=== PATIENT | female | born 1970 | race Caucasian/White ===

== ENCOUNTER 2017-10-21 18:30 | Emergency (ER) | payer MEDICAID, SELFPAY ==
[2017-10-21 18:33] VITALS: BP 129/87; PULSE 84; RESP 20; TEMP 36.9; O2SAT 96; BMI 37.1
--- NOTE | 2017-10-21 18:43 | PC.NURSE ---
PT NOW SAYS [PAIN IS IN HER R KNEE SORE UPON PALPATION . NO REDNESS NO SWELLING
--- NOTE | 2017-10-21 18:45 | XR_ITS ---
XR knee RT 3V HISTORY: Right knee pain ITS.REASON: PAIN R KNEE ORDERING PHYSICIAN: Rafael Winchester MD PATIENT AGE: 47 years COMPARISON: None FINDINGS: No fracture or dislocation. No lytic or blastic change. Normal mineralization. There are mild osteoarthritic changes of the medial compartment and patellofemoral joint No other significant findings IMPRESSION: Mild osteoarthritis otherwise negative
--- NOTE | 2017-10-21 21:03 | HMH.EDLOEX ---
ED Disposition Clinical Impression: Right knee sprain Qualifiers: Encounter type: initial encounter Involved ligament of knee: unspecified ligament Qualified Code(s): S83.91XA - Sprain of unspecified site of right knee, initial encounter Osteoarthritis Qualifiers: Osteoarthritis location: knee Osteoarthritis type: unspecified Laterality: right Qualified Code(s): M17.11 - Unilateral primary osteoarthritis, right knee Disposition: Home, Self-Care Condition on Discharge: Good Additional Instructions: resume prev meds - Critical Care Critical Care Time: No Attestation: On 10/21/17, the high probability of a clinically significant, sudden or life threatening deterioration of the following system(s) required my full and direct attention, intervention and personal management. The time I documented below is in addition to time spent performing reported procedures but includes the following listed in this critical care notation. Medical Decision Making - Medical Records Medical records reviewed: Yes: I reviewed the patient's medical records. - Vlad Inquiry Pt receiving controlled substance: No Vital Signs: 10/21/17 18:33 Temperature 98.5 F Temperature Source Oral Pulse Rate [Right Radial] 84 Respiratory Rate 20 Blood Pressure [Right Arm] 129/87 Blood Pressure Mean [Right Arm] 101 Blood Pressure Source [Right Arm] Automatic Cuff Blood Pressure Position [Right Arm] Supine 02 Sat by Pulse Oximetry 96 Oxygen Delivery Method Room Air - Lab Data Lab results reviewed: Yes: I reviewed the patient's lab results. - Radiology Data #1 Image(s): Knee Image Reviewed: Yes I reviewed the patient's radiology image Preliminary Findings: No Fracture Seen Lower Extremity Injury HPI - General Chief Complaint: Fall Stated Complaint: R LEG WEAKNESS Time Seen by Provider: 10/21/17 21:03 Mode of Arrival: EMS Source of Information: Patient, EMS, Medical Record Limitations: No Limitations Description of Symptoms (Recalled from ER Triage Doc. by RN): STAFF AT [facility] SAID SHE FELL EARLIER WITH NO COMPLAINTS NO INJURY , PT STATES HER R LEG IS WEAK ALL THE TIME AND IT JUST LOCKS UP , THATS WHAT MADE HER FALL , PT HAS NO OBVIOUS TRAUMA - History of Present Illness HPI Narrative: reported fall 3 days ago with rt knee pain with no hip pain or other c/o MD complaint: knee injury Onset (ago): day(s) Injury: Right: knee Type of Injury: unknown Place: home Severity: moderate Relieving factors: NSAID Exacerbating factors: nothing Context: fall Associated symptoms: able to partially bear weight Other symptoms: none - Related Data Allergies Allergy/AdvReac Type Severity Reaction Status Date / Time banana Allergy Mild Unverified 07/19/17 15:04 [From BANANAS (FOOD/DRUG)] chocolate flavor Allergy Mild UNKNOWN Unverified 07/19/17 15:04 [From CHOCOLATE (FOOD/DRUG)] From BANANAS (FOOD/DRUG) Allergy Mild Uncoded 07/19/17 15:04 From CHOCOLATE (FOOD/DRUG) Allergy Mild UNKNOWN Uncoded 07/19/17 15:[address] [facility] History I have reviewed the patient's past medical history: Yes ROS Obtained: Yes All systems reviewed & no additional complaints - Constitutional Constitutional: Denies fever(s) - Eyes Eyes: Denies change in vision - ENT Ears, Nose, Mouth, and Throat: Denies sore throat - Cardiovascular Cardiovascular: Denies chest pain at rest - Respiratory Respiratory: No cough - Gastrointestinal Gastrointestingal: Denies: abdominal pain - Genitourinary Female Genitourinary: Denies hematuria - Musculoskeletal Musculoskeletal: Reports as per HPI, Reports joint pain, Denies back pain, Denies joint swelling, Reports limited range of motion - Integumentary/Breasts Skin/Breast: Denies rash - Neurologic Neurologic: Denies seizure-like activity Physical Exam - General General appearance: alert - Head Head exam: normocephalic - Eye Eye exam: Present: PERRL, EOMI - ENT ENT exam: Present:
--- NOTE | 2017-10-21 21:06 | ED_ITS ---
ED Disposition Clinical Impression: Right knee sprain Qualifiers: Encounter type: initial encounter Involved ligament of knee: unspecified ligament Qualified Code(s): S83.91XA - Sprain of unspecified site of right knee , initial encounter Osteoarthritis Qualifiers: Osteoarthritis location: knee Osteoarthritis type: unspecified Laterality: right Qualified Code(s): M17.11 - Unilateral primary osteoarthritis, right knee Disposition: Home, Self-Care Condition on Discharge: Good Additional Instructions: resume prev meds - Critical Care Critical Care Time: No Attestation: On 10/21/17, the high probability of a clinically significant, sudden or life threatening deterioration of the following system(s) required my full and direct attention, intervention and personal management. The time I documented below is in addition to time spent performing reported procedures but includes the following listed in this critical care notation. Medical Decision Making - Medical Records Medical records reviewed: Yes: I reviewed the patient's medical records. - Vlad Inquiry Pt receiving controlled substance: No Vital Signs: 10/21/17 18:33 Temperature 98.5 F Temperature Source Oral Pulse Rate [Right Radial] 84 Respiratory Rate 20 Blood Pressure [Right Arm] 129/87 Blood Pressure Mean [Right Arm] 101 Blood Pressure Source [Right Arm] Automatic Cuff Blood Pressure Position [Right Arm] Supine 02 Sat by Pulse Oximetry 96 Oxygen Delivery Method Room Air - Lab Data Lab results reviewed: Yes: I reviewed the patient's lab results. - Radiology Data #1 Image(s): Knee Image Reviewed: Yes I reviewed the patient's radiology image Preliminary Findings: No Fracture Seen Lower Extremity Injury HPI - General Chief Complaint: Fall Stated Complaint: R LEG WEAKNESS Time Seen by Provider: 10/21/17 21:03 Mode of Arrival: EMS Source of Information: Patient, EMS, Medical Record Limitations: No Limitations Description of Symptoms (Recalled from ER Triage Doc. by RN): STAFF AT [facility] SAID SHE FELL EARLIER WITH NO COMPLAINTS NO INJURY , PT STATES HER R LEG IS WEAK ALL THE TIME AND IT JUST LOCKS UP , THATS WHAT MADE HER FALL , PT HAS NO OBVIOUS TRAUMA - History of Present Illness HPI Narrative: reported fall 3 days ago with rt knee pain with no hip pain or other c/o MD complaint: knee injury Onset (ago): day(s) Injury: Right: knee Type of Injury: unknown Place: home Severity: moderate Relieving factors: NSAID Exacerbating factors: nothing Context: fall Associated symptoms: able to partially bear weight Other symptoms: none - Related Data Allergies Allergy/AdvReac Type Severity Reaction Status Date / Time banana Allergy Mild Unverified 07/19/17 15:04 [From BANANAS (FOOD/DRUG)] chocolate flavor Allergy Mild UNKNOWN Unverified 07/19/17 15:04 [From CHOCOLATE (FOOD/DRUG)] From BANANAS (FOOD/DRUG) Allergy Mild Uncoded 07/19/17 15:04 From CHOCOLATE (FOOD/DRUG) Allergy Mild UNKNOWN Uncoded 07/19/17 15:04 [facility] History I have reviewed the patient's past medical history: Yes ROS Obtained: Yes All systems reviewed & no additional complaints - Constitutional Constitutional: Denies fever(s) - Eyes Eyes: Denies change in vision - ENT Ears, Nose, Mouth, and Throat: Denies sore throat - Cardiovascul
[2017-10-21 21:47] VITALS: BP 145/75; PULSE 88; RESP 18; TEMP 36.6
== END 2017-10-21 21:46 | disposition home or self-care (01) ==
PROVIDERS: Emergency Provider Emergency Medicine; Family Provider Emergency Medicine
DX: S83.91XA Sprain of unspecified site of right knee, initial encounter (principal); M17.11 Unilateral primary osteoarthritis, right knee
CPT/HCPCS: 73562; 99282

== ENCOUNTER → 2018-01-16 10:47 | Outpatient (CLI) | payer MEDICAID, SELFPAY ==
--- NOTE | 2018-01-16 11:02 | XR_ITS ---
EXAM: XR lumbar spine 2-3V HISTORY: Posttraumatic pain ITS.REASON: Fall, tremor, pain ORDERING PHYSICIAN: Hoda Iglesias PATIENT AGE: 47 years COMPARISON: None FINDINGS: There is degenerative disc disease in the lower thoracic spine and T12-L1. No acute fracture or dislocation is evident. Degenerative disc disease also present at L5-S1 with facet arthritic changes at L4-L5 and L5-S1. No lytic or blastic change. Abdominal wall tacks are present over the lower abdomen. IMPRESSION: Degenerative disc disease and facet arthritic change as described above. No acute fracture
[2018-01-16 11:31] LABS: Basophils % 0.5 % (0.1-2.0); Eosinophils # 0.2 K/mm3 (0.0-0.4); Eosinophils % 2.1 % (0.1-12.0); Hemoglobin 14.2 g/dL (12.2-16.2); Lymphocytes # 2.8 K/mm3 (0.7-4.5); Lymphocytes % 35.4 K/mm3 (10-50); Mean Corpuscular HGB Conc 32.2 g/dL (31.8-35.4); Mean Corpuscular Hemoglobin 29.1 pg (27.0-31.2); Mean Corpuscular Volume 90.3 fl (81-99); Mean Platelet Volume 8.2 fl (7.4-10.4); Monocytes # 0.6 K/mm3 (0.1-1.0); Monocytes % 7.6 % (1.7-9.3); Neutrophils # 4.3 K/mm3 (1.8-7.8); Neutrophils % 54.5 % (37.0-80.0); Platelet Count 260 K/mm3 (142-424); Red Blood Count 4.87 M/mm3 (4.20-5.40); Red Cell Distribution Width 13.2 % (11.5-17.5); White Blood Count 7.9 K/mm3 (4.8-10.8)
[2018-01-16 12:45] LABS: Alanine Aminotransferase 23 U/L (12-78); Albumin Level 3.3 gm/dL (3.4-5.0); Albumin/Globulin Ratio 0.9 (1.1-1.8); Alkaline Phosphatase 90 U/L (46-116); Anion Gap 12.2 mEq/L (5-15); Aspartate Amino Transferase 6 U/L (15-37); Bilirubin,Total 0.3 mg/dL (0.2-1.0); Blood Urea Nitrogen 11 mg/dL (7-18); Calcium 8.8 mg/dL (8.5-10.1); Carbon Dioxide 31 mmol/L (21.0-32.0); Chloride 107 mmol/L (98-107); Creatinine,Serum 0.67 mg/dL (0.55-1.02); Estimated Glomerular Filt Rate 94 ml/min (>60); GFR (African American) 114 ML/MIN (>60); Globulin 3.7 gm/dl (1.3-3.2); Glucose 83 mg/dL (74-106); Potassium 4.2 mmoL/L (3.5-5.1); Sodium 146 mmol/L (136-145); Thyroid Stimulating Hormone 2.61 uIU/ml (0.358-3.740)
[2018-01-17 12:50] LABS: Folate >20.0 ng/mL (>3.0); Vitamin B12 762 pg/mL (232-1245)
== END ==
PROVIDERS: Visit Provider Nurse Practitioner Family
DX: R25.1 Tremor, unspecified (principal); M19.90 Unspecified osteoarthritis, unspecified site; W19.XXXA Unspecified fall, initial encounter
CPT/HCPCS: 36415; 72100; 80053; 82607; 82746; 84443; 85025

== ENCOUNTER 2019-01-20 12:31 | Emergency (ER) | payer MEDICAID, SELFPAY ==
[2019-01-20] VITALS (10 sets, daily range): BP systolic 127–175; BP diastolic 72–104; PULSE 70–93; RESP 12–18; TEMP 36.7–37.3; O2SAT 96–98; BMI 44.2
[2019-01-20 13:24] LABS: Basophils % 0.4 % (0.1-2.0); Eosinophils # 0.3 K/mm3 (0.0-0.4); Eosinophils % 3.4 % (0.1-12.0); Hematocrit 42.6 % (37.0-47.0); Hemoglobin 13.2 g/dL (12.2-16.2); Lymphocytes # 3.1 K/mm3 (0.7-4.5); Lymphocytes % 37.8 % (10-50); Mean Corpuscular Hemoglobin 27.1 pg (27.0-31.2); Mean Corpuscular Volume 87.5 fl (81-99); Mean Platelet Volume 7.9 fl (7.4-10.4); Monocytes # 0.5 K/mm3 (0.1-1.0); Neutrophils # 4.3 K/mm3 (1.8-7.8); Neutrophils % 52.3 % (37.0-80.0); Platelet Count 241 K/mm3 (142-424); Red Blood Count 4.86 M/mm3 (4.20-5.40); Red Cell Distribution Width 13.7 % (11.5-17.5); White Blood Count 8.3 K/mm3 (4.8-10.8)
[2019-01-20 13:34] LABS: Microscopic, Urine URINE MICROSCOPIC (MICROSCOPIC)
--- NOTE | 2019-01-20 13:34 | CT_ITS ---
CT abdomen pelvis w con INDICATION: Generalized abdominal pain with nausea vomiting diarrhea. ITS.REASON: abdominal pain ORDERING PHYSICIAN: Daina Vallecillo MD PATIENT AGE: 48 years COMPARISON: CT abdomen pelvis May 2017 PROCEDURE: Oral Contrast: Diluted Gastroview contrast. IV Contrast: 75 cc Optiray 350 IV contrast TECHNIQUE: Axial images obtained with sagittal and coronal reformats. All CT scans at the facility use one or more dose reduction, viz: automated exposure control, ma/kV adjustment per patient size (including targeted exams where dose is matched to indication, i.e. head), or iterative reconstruction technique. FINDINGS: Lung bases: stable with no active disease. No significant change since 2017. Abdomen. Liver, spleen, pancreas, adrenals unremarkable. No significant findings. Cholecystectomy. No biliary ductal dilatation. Kidneys./ tract. No urinary tract obstruction or calculi... Stable small 7 mm cyst at anterior upper pole right kidney.. Ureters unremarkable. No urinary tract calculi or obstruction. Pelvis. Urinary Bladder contracted but unremarkable. No free fluid at pelvis. Previous midline incision and hysterectomy. No adnexal masses. . There is a mesh graft seen at the level of the umbilicus and extending slightly more to the left. Appears stable and unchanged since 2017. Osseous structures no new lesions.. No significant new findings. I would note partial ankylosis of the inferior left and right SI joint. Nonspecific. Can be seen a normal variant or seen with arthritic disease or inflammatory bowel disease GI TRACT...... .. No bowel dilatation nor obstruction. No evidence of appendicitis.. The patient drank oral contrast. No significant contrast remains within the stomach. Scant contrast within small bowel it appears majority contrast is passed distally and associated with contrast, air-fluid levels at the rectosigmoid and left colon.. Large bowel. Findings would be compatible with given history of recent diarrhea as her minimal contents within the colon. Air-fluid levels associated with the dense liquid contrast material at rectosigmoid. The fact that the oral contrast is reached the rectosigmoid with suggest rapid transit support impression of enteritis/diarrhea Borderline wall thickness at the right colon but may merely reflect lack of distention.. Minor low-density wall thickening can also be seen with mild chronic bowel inflammation Small bowel normal caliber with a few small air-fluid levels.. Upper normal wall thickness is seen at 8 few loops at the proximal small bowel. Unimpressive. But these minor observations could also reflect mild enteritis as well, if symptoms suggest such. Stomach. Moderate food and fluid and gas moderately distending the stomach. . Bones. No significant findings. No significant change since 2017. There may be some partial ankylosis at the inferior SI joints. ... IMPRESSION: ... 1. No prominent nor acute surgical findings in the abdomen.. No evidence of appendicitis. No bowel obstruction. 2. However there are Observations compatible with of hx Diarrhea, & suggestive of Enterocolitis:. ... Liquid contrast stool throughout the rectosigmoid, with lack of solid stool within colon .Air-fluid levels rectosigmoid & elsewhere at large bowel reflect diarrhea/liquid stool suggests enterocolitis. ... Small bowel. No dilatation, but Upper normal to mild wall thickness proximal small bowel which may reflect mild enteritis features as well.. The rapid transit of oral contrast through the small bowel and colon, also likely reflection of enterocolitis. 2.. Stomach. Mildly distended, containing generous gas food and fluid ..
[2019-01-20 13:36] LABS: Appearance,Urine SL CLOUDY (Clear); Bilirubin,Urine Negative (Negative); Blood, Urine Negative (Negative); Color,Urine YELLOW (Yellow); Glucose,Urine (UA) Negative (Negative); Ketones,Urine TRACE (Negative); Leukocyte Esterase,Urine Negative (Negative); Nitrate,Urine Negative (Negative); PH,Urine 7.5 (5.0-8.5); Protein,Urine TRACE (Negative); Specific Gravity, Urine 1.015 (1.005-1.030); Urobilinogen,Urine 0.2 EU/dl (0.2)
[2019-01-20 13:36] LABS: Alanine Aminotransferase 18 U/L (12-78); Albumin Level 2.6 gm/dL (3.4-5.0); Albumin/Globulin Ratio 0.7 (1.1-1.8); Alkaline Phosphatase 82 U/L (46-116); Anion Gap 11.9 mEq/L (5-15); Aspartate Amino Transferase 9 U/L (15-37); Bilirubin,Total 0.2 mg/dL (0.2-1.0); Blood Urea Nitrogen 11 mg/dL (7-18); Calcium 7.9 mg/dL (8.5-10.1); Carbon Dioxide 30 mmol/L (21.0-32.0); Chloride 107 mmol/L (98-107); Creatinine Clearance Estimated 86 mL/min (50-200); Creatinine,Serum 0.66 mg/dL (0.55-1.02); Estimated Glomerular Filt Rate 96 ml/min (>60); GFR (African American) 116 ML/MIN (>60); Globulin 3.5 gm/dl (1.3-3.2); Glucose 120 mg/dL (74-106); Potassium 3.9 mmoL/L (3.5-5.1); Sodium 145 mmol/L (136-145); Total Protein,Serum 6.1 gm/dL (6.4-8.2)
--- NOTE | 2019-01-20 13:36 | HMH.EDABDPAI ---
ED Disposition Clinical Impression: Hirsutism, Obesity, COPD (chronic obstructive pulmonary disease), Abdominal pain of unknown etiology Disposition: Home, Self-Care Condition on Discharge: Fair Instructions: DI for Acute Abdomen Additional Instructions: 1- zanatc 150 mg po bid x one week. 2- bentyl q8 prn. 3- follow up with Dr. Pak on Tuesday. 4- return if needed. Prescriptions: Dicyclomine HCl [Bentyl 10mg capsule] 10 mg PO Q8H #20 cap raNITIdine HCl [Zantac] 150 mg PO BID #14 tab Referrals: Jared Pak MD [Primary Care Provider] - - Critical Care Critical Care Time: No Attestation: On 01/20/19, the high probability of a clinically significant, sudden or life threatening deterioration of the following system(s) required my full and direct attention, intervention and personal management. The time I documented below is in addition to time spent performing reported procedures but includes the following listed in this critical care notation. Medical Decision Making - Vlad Inquiry Pt receiving controlled substance: No Vlad was queried for this patient: No Vital Signs: 01/20/19 12:32 01/20/19 13:45 01/20/19 13:47 Temperature 99.1 F Temperature Source Oral Pulse Rate [Left Radial] 93 H 74 76 Respiratory Rate 18 12 12 Blood Pressure [Right Arm] 175/104 H 137/72 137/76 Blood Pressure Mean [Right Arm] 127 93 96 Blood Pressure Source [Right Arm] Automatic Cuff Automatic Cuff Automatic Cuff Blood Pressure Position [Right Arm] Sitting Sitting Sitting 02 Sat by Pulse Oximetry 97 98 96 Oxygen Delivery Method Room Air Room Air Room Air 01/20/19 14:19 01/20/19 15:26 01/20/19 16:40 Temperature 98.1 F Temperature Source Oral Pulse Rate [Left Radial] 80 79 82 Respiratory Rate 12 18 Blood Pressure [Right Arm] 145/77 H 133/88 140/81 Blood Pressure Mean [Right Arm] 99 103 100 Blood Pressure Source [Right Arm] Automatic Cuff Automatic Cuff Automatic Cuff Blood Pressure Position [Right Arm] Sitting Sitting Sitting 02 Sat by Pulse Oximetry 97 96 96 Oxygen Delivery Method Room Air Room Air Room Air 01/20/19 17:16 01/20/19 17:50 01/20/19 19:03 Temperature Temperature Source Pulse Rate [Left Radial] 77 79 70 Respiratory Rate Blood Pressure [Right Arm] 135/95 H 127/92 H 130/85 Blood Pressure Mean [Right Arm] 108 103 100 Blood Pressure Source [Right Arm] Blood Pressure Position [Right Arm] Sitting Sitting 02 Sat by Pulse Oximetry 97 96 96 Oxygen Delivery Method Room Air Room Air Room Air - Lab Data Lab Results 01/20/19 13:20: WBC 8.3, RBC 4.86, Hgb 13.2, Hct 42.6, MCV 87.5, MCH 27.1, MCHC 31.0 L, RDW 13.7, Plt Count 241, MPV 7.9, Neut % (Auto) 52.3, Lymph % (Auto) 37.8, [place] % (Auto) 6.0, Eos % (Auto) 3.4, Baso % (Auto) 0.4, Neut # (Auto) 4.3, Lymph # (Auto) 3.1, [place] # (Auto) 0.5, Eos # (Auto) 0.3, Baso # (Auto) 0.0 01/20/19 13:20: Sodium 145, Potassium 3.9, Chloride 107, Carbon Dioxide 30, Anion Gap 11.9, BUN 11, Creatinine 0.66, Estimated Creat Clear 86, Estimated GFR 96, Est GFR ( Amer) 116, Glucose 120 H, Calcium 7.9 L, Total Bilirubin 0.2, AST 9 L, ALT 18, Alkaline Phosphatase 82, Total Protein 6.1 L, Albumin 2.6 L, Globulin 3.5 H, Albumin/Globulin Ratio 0.7 L 01/20/19 13:20: Magnesium 1.7 01/20/19 13:20: Lipase 97 01/20/19 13:33: Urine Color Yellow, Urine Appearance Sl cloudy, Urine pH 7.5, Ur Specific [place] 1.015, Urine Protein Trace, Urine Glucose (UA) Negative, Urine Ketones Trace, Urine Blood Negative, Urine Nitrate Negative, Urine Bilirubin Negative, Urine Urobilinogen 0.2, Ur Leukocyte Esterase Negative, Urine WBC 3-5, Ur Squamous Epith Cells 5-10, Urine Bacteria 1+, Urine Mucus 1+ Result diagrams: 01/20/19 13:20 01/20/19 13:20 Orders (Tests/Meds): ED MEDICATIONS Discontinued Medications Generic Name Dose Route Start Last Admin Trade Name Freq PRN Reason Stop Dose Admin Diatrizoate Meglum/Diatrizoate Sod 30 ml 01/20/19 13:34 01/20/19 1
--- NOTE | 2019-01-20 13:40 | ED_ITS ---
ED Disposition Clinical Impression: Hirsutism, Obesity, COPD (chronic obstructive pulmonary disease), Abdominal pain of unknown etiology Disposition: Home, Self-Care Condition on Discharge: Fair Instructions: DI for Acute Abdomen Additional Instructions: 1- zanatc 150 mg po bid x one week. 2- bentyl q8 prn. 3- follow up with Dr. Pak on Tuesday. 4- return if needed. Prescriptions: Dicyclomine HCl [Bentyl 10mg capsule] 10 mg PO Q8H #20 cap raNITIdine HCl [Zantac] 150 mg PO BID #14 tab Referrals: Jared Pak MD [Primary Care Provider] - - Critical Care Critical Care Time: No Attestation: On 01/20/19, the high probability of a clinically significant, sudden or life threatening deterioration of the following system(s) required my full and direct attention, intervention and personal management. The time I documented below is in addition to time spent performing reported procedures but includes the follo wing listed in this critical care notation. Medical Decision Making - Vlad Inquiry Pt receiving controlled substance: No Vlad was queried for this patient: No Vital Signs: 01/20/19 12:32 01/20/19 13:45 01/20/19 13:47 Temperature 99.1 F Temperature Source Oral Pulse Rate [Left Radial] 93 H 74 76 Respiratory Rate 18 12 12 Blood Pressure [Right Arm] 175/104 H 137/72 137/76 Blood Pressure Mean [Right Arm] 127 93 96 Blood Pressure Source [Right Arm] Automatic Cuff Automatic Cuff Automatic Cuff Blood Pressure Position [Right Arm] Sitting Sitting Sitting 02 Sat by Pulse Oximetry 97 98 96 Oxygen Delivery Method Room Air Room Air Room Air 01/20/19 14:19 01/20/19 15:26 01/20/19 16:40 Temperature 98.1 F Temperature Source Oral Pulse Rate [Left Radial] 80 79 82 Respiratory Rate 12 18 Blood Pressure [Right Arm] 145/77 H 133/88 140/81 Blood Pressure Mean [Right Arm] 99 103 100 Blood Pressure Source [Right Arm] Automatic Cuff Automatic Cuff Automatic Cuff Blood Pressure Position [Right Arm] Sitting Sitting Sitting 02 Sat by Pulse Oximetry 97 96 96 Oxygen Delivery Method Room Air Room Air Room Air 01/20/19 17:16 01/20/19 17:50 01/20/19 19:03 Temperature Temperature Source Pulse Rate [Left Radial] 77 79 70 Respiratory Rate Blood Pressure [Right Arm] 135/95 H 127/92 H 130/85 Blood Pressure Mean [Right Arm] 108 103 100 Blood Pressure Source [Right Arm] Blood Pressure Position [Right Arm] Sitting Sitting 02 Sat by Pulse Oximetry 97 96 96 Oxygen Delivery Method Room Air Room Air Room Air - Lab Data Lab Results 01/20/19 13:20: WBC 8.3, RBC 4.86, Hgb 13.2, Hct 42.6, MCV 87.5, MCH 27.1, MCHC 31.0 L, RDW 13.7, Plt Count 241, MPV 7.9, Neut % (Auto) 52.3, Lymph % (Auto) 37.8, [place] % (Auto) 6.0, Eos % (Auto) 3.4, Baso % (Auto) 0.4, Neut # (Auto) 4.3, Lymph # (Auto) 3.1, [place] # (Auto) 0.5, Eos # (Auto) 0.3, Baso # (Auto) 0.0 01/20/19 13:20: Sodium 145, Potassium 3.9, Chloride 107, Carbon Dioxide 30, Anion Gap 11.9, BUN 11, Creatinine 0.66, Estimated Creat Clear 86, Estimated GFR 96, Est GFR ( Amer) 116, Glucose 120 H, Calcium 7.9 L, Total Bilirubin 0.2, AST 9 L, ALT 18, Alkaline Phosphatase 82, Total Protein 6.1 L, Albumin 2.6 L, Globulin 3.5 H, Albumin/Globul
[2019-01-20 13:44] LABS: Bacteria,Urine 1+ /lpf; Mucus,Urine 1+ /lpf
[2019-01-20 13:55] LABS: Lipase 97 u/L (73-393); Magnesium 1.7 mg/dL (1.4-2.2)
--- NOTE | 2019-01-20 14:13 | PC.NURSE ---
Pt finished contrast
== END 2019-01-20 20:08 | disposition home or self-care (01) ==
PROVIDERS: Emergency Provider Emergency Medicine; PCP Emergency Medicine
DX: L68.0 Hirsutism (principal); E66.9 Obesity, unspecified; J44.9 Chronic obstructive pulmonary disease, unspecified; R10.9 Unspecified abdominal pain; F41.8 Other specified anxiety disorders; E78.5 Hyperlipidemia, unspecified; J45.909 Unspecified asthma, uncomplicated; F17.210 Nicotine dependence, cigarettes, uncomplicated
CPT/HCPCS: 36415; 74177; 80053; 81001; 83690; 83735; 85025; 96365; 96375; 99284; Q9967

== ENCOUNTER 2019-12-01 11:46 | Emergency (ER) | payer MEDICAID, SELFPAY ==
[2019-12-01 11:50] VITALS: BP 131/92; PULSE 97; RESP 18; TEMP 36.7; O2SAT 93; BMI 43.3
[2019-12-01 12:10] LABS: Basophils # 0.2 K/mm3 (0-0.2); Eosinophils # 0.2 K/mm3 (0.0-0.4); Eosinophils % 2.3 % (0.1-12.0); Hematocrit 45.9 % (37.0-47.0); Hemoglobin 14.6 g/dL (12.2-16.2); Lymphocytes # 3.5 K/mm3 (0.7-4.5); Lymphocytes % 34.5 % (10-50); Mean Corpuscular HGB Conc 31.8 g/dL (31.8-35.4); Mean Corpuscular Hemoglobin 27.8 pg (27.0-31.2); Mean Corpuscular Volume 87.6 fl (81-99); Mean Platelet Volume 8.2 fl (7.4-10.4); Monocytes # 0.8 K/mm3 (0.1-1.0); Monocytes % 8.1 % (1.7-9.3); Neutrophils # 5.4 K/mm3 (1.8-7.8); Neutrophils % 53.2 % (37.0-80.0); Platelet Count 249 K/mm3 (142-424); Red Blood Count 5.24 M/mm3 (4.20-5.40); Red Cell Distribution Width 14.4 % (11.5-17.5); White Blood Count 10.2 K/mm3 (4.8-10.8)
--- NOTE | 2019-12-01 12:13 | HMH.EDGENADL ---
ED Disposition Clinical Impression: Constipation, Blood in stool Disposition: Home, Self-Care Condition on Discharge: Good Instructions: DI for Acute Abdomen Additional Instructions: Please follow-up with primary care if symptoms persist. - Critical Care Critical Care Time: No Attestation: On , the high probability of a clinically significant, sudden or life threatening deterioration of the following system(s) required my full and direct attention, intervention and personal management. The time I documented below is in addition to time spent performing reported procedures but includes the following listed in this critical care notation. Medical Decision Making - Medical Records Medical records reviewed: Yes: I reviewed the patient's medical records. - Vlad Inquiry Pt receiving controlled substance: No Vital Signs: 12/01/19 11:50 Temperature 98.1 F Temperature Source Oral Pulse Rate [Right Radial] 97 H Respiratory Rate 18 Blood Pressure [Right Arm] 131/92 H Blood Pressure Mean [Right Arm] 105 Blood Pressure Source [Right Arm] Automatic Cuff Blood Pressure Position [Right Arm] Sitting 02 Sat by Pulse Oximetry 93 L Oxygen Delivery Method Room Air - Lab Data Lab results reviewed: Yes: I reviewed the patient's lab results. Lab Results 12/01/19 11:55: WBC 10.2, RBC 5.24, Hgb 14.6, Hct 45.9, MCV 87.6, MCH 27.8, MCHC 31.8, RDW 14.4, Plt Count 249, MPV 8.2, Neut % (Auto) 53.2, Lymph % (Auto) 34.5, [place] % (Auto) 8.1, Eos % (Auto) 2.3, Baso % (Auto) 2.0, Neut # (Auto) 5.4, Lymph # (Auto) 3.5, [place] # (Auto) 0.8, Eos # (Auto) 0.2, Baso # (Auto) 0.2 Result diagrams: 12/01/19 11:55 General Adult HPI - General Chief complaint: Abdominal Pain Stated complaint: rectal bleeding Time Seen by Provider: 12/01/19 12:13 Mode of Arrival: EMS Source of Information: Patient Limitations: No Limitations Description of Symptoms (Recalled from ER Triage Doc. by RN): PT C/O BLOOD ON TP WHEN SHE WIPES AFTER A BM. PT C/O PAIN AND ITCHING AROUND THE ANUS. PT ALSO C/O ABD PAIN. - History of Present Illness HPI narrative: We have 49-year-old female resident of [facility] presents with blood in stool after a bowel movement. Patient states that she has been constipated for couple of days and then when she did have a bowel movement today she did notice some blood in her stool. Patient denies any abdominal pain. Patient denies any recent subjective or objective fevers. Patient denies any other infectious process. - Related Data Home Medications Medication Instructions Recorded Confirmed Citalopram Hydrobromide [Celexa 40 mg PO DAILY 12/21/17 01/20/19 40mg Tablet] Divalproex Sodium [Depakote] 500 mg PO DAILY 12/21/17 01/20/19 LORazepam [Ativan] 2 mg PO DAILY 12/21/17 01/20/19 albuterol sulfate 2.5 mg INHALATION QID 01/16/18 01/20/19 benztropine 0.5 mg tablet 0.5 mg PO BID 01/16/18 01/20/19 bupropion HCl 300 mg 24 hr tablet, 300 mg PO QAM 01/16/18 01/20/19 extended release guaifenesin 100 mg/5 mL oral liquid 200 mg PO Q4H PRN 01/16/18 01/20/19 loperamide 2 mg capsule 2 mg PO Q4H 01/16/18 01/20/19 simvastatin 20 mg tablet 20 mg PO QPM 01/16/18 01/20/19 buspirone 5 mg tablet 5 mg PO TID 12/29/18 01/20/19 guaifenesin 200 mg/5 mL oral liquid 400 mg PO Q6H 12/29/18 01/20/19 paliperidone 6 mg tablet,extended 6 mg PO DAILY 12/29/18 01/20/19 release 24 hr promethazine 25 mg tablet 25 mg PO Q6H PRN 12/29/18 01/20/19 trazodone 50 mg tablet 50 mg PO QHS PRN 12/29/18 01/20/19 Previous Rx's Medication Instructions Recorded Dicyclomine HCl [Bentyl 10mg 10 mg PO Q8H #20 cap 01/20/19 capsule] raNITIdine HCl [Zantac] 150 mg PO BID #14 tab 01/20/19 Allergies Allergy/AdvReac Type Severity Reaction Status Date / Time banana Allergy Mild Verified 01/20/19 14:05 [From BANANAS (FOOD/DRUG)] chocolate flavor Allergy Mild UNKNOWN Verified 01/20/19 14:05 [From CHOCOLATE (FOOD/DRUG)] From BANANA
--- NOTE | 2019-12-01 12:32 | PC.NURSE ---
juan called for pt transport back
[2019-12-01 13:33] VITALS: BP 124/78; PULSE 76; RESP 18; TEMP 36.7; O2SAT 98
== END 2019-12-01 13:36 | disposition home or self-care (01) ==
PROVIDERS: Emergency Provider Family Medicine; PCP Emergency Medicine
DX: K59.00 Constipation, unspecified (principal); K92.1 Melena; F41.8 Other specified anxiety disorders; E78.5 Hyperlipidemia, unspecified; J44.9 Chronic obstructive pulmonary disease, unspecified; Z79.899 Other long term (current) drug therapy
CPT/HCPCS: 85025; 99282

== ENCOUNTER → 2020-08-14 10:35 | Outpatient (CLI) | payer MEDICAID, SELFPAY ==
--- NOTE | 2020-08-14 10:40 | US_ITS ---
APPROVED REPORT Exam Type: Lower Extremity Segmental Pressures Activity Aide: Mariluz Meredith RVT Indications Claudication: Bilaterally Rest Pain: Bilaterally Current Smoker History of Smoking CLAUDICATION Risk Factors Current Smoker Pressures/Indices Right Indices Left Indices Brachial 173.00 mmHg Brachial 187.00 mmHg Low Thigh 193.00 mmHg 1.03 Low Thigh 193.00 mmHg 1.03 Calf 197.00 mmHg 1.05 Calf 181.00 mmHg 0.97 Ankle(PT) 191.00 mmHg 1.02 Ankle(PT) 175.00 mmHg 0.94 Ankle(DP) 179.00 mmHg 0.96 Ankle(DP) 178.00 mmHg 0.95 Digit 202.00 mmHg 1.08 Digit 157.00 mmHg 0.84 Findings RT JOSE:1.02 LT JOSE:0.95 RT TBI:1.08 LT TBI:0.84 NORMAL PULSES BILATERAL NORMAL WAVEFORMS BILATERAL Conclusion RT JOSE:1.02 LT JOSE:0.95 RT TBI:1.08 LT TBI:0.84 NORMAL PULSES BILATERAL NORMAL WAVEFORMS BILATERAL Normal appearing resting noninvasive lower extremity arterial study. Electronically signed by : Bowen Page MD 08/14/2020 17:42:11
== END ==
PROVIDERS: PCP Emergency Medicine; Visit Provider Emergency Medicine
DX: I73.9 Peripheral vascular disease, unspecified (principal); M79.605 Pain in left leg; M79.604 Pain in right leg
CPT/HCPCS: 93923

== ENCOUNTER → 2020-09-24 09:39 | Outpatient (CLI) | payer MEDICAID, SELFPAY ==
--- NOTE | 2020-09-24 10:08 | MM_ITS ---
PROCEDURE: MM DIG SCREENING MAMM BI W/CAD Digital Breast Tomosynthesis Included CLINICAL INDICATION: SCREENING There is no personal or family history of breast cancer. COMPARISON: MG MM SCREENING MAMMOGRAM from 10/15/2011 MG MM SCREENING MAMMOGRAM from 11/27/2013 TECHNIQUE: Standard CC and MLO images and 3D Tomosynthesis was obtained. R2 CAD reviewed. FINDINGS: There are diffuse fibroglandular densities are seen throughout both breasts. There is a stable asymmetric density upper-outer quadrant left breast likely asymmetric glandular elements with no suspicious characteristics seen on karen images. However there is a collection of microcalcifications central portion left breast which were not seen previously and they are somewhat indeterminate and recommend the patient return for spot compression magnification views and ultrasound. There is a small collection of microcalcifications upper-outer quadrant right breast again which were not seen previously. They are less suspicious but recommend spot compression as well and if spot compression views are somewhat indeterminate and ultrasound of the right breast should be considered as well. IMPRESSION: Fibrofatty parenchyma with calcifications in each breast more suspicious left than right BI-RAD Category: 0 Need Additional Imaging Evaluation FOLLOW-UP: IMM Immediate Follow-up Recommended (A letter has been sent to the patient regarding results of the study.) Dictated by: Dr. Alonzo De Paz MD 10/02/2020 08:29 Dr. Alonzo De Paz MD in [place] 10/02/2020 08:29
== END ==
PROVIDERS: PCP Emergency Medicine; Visit Provider Emergency Medicine
DX: Z12.31 Encounter for screening mammogram for malignant neoplasm of breast (principal)
CPT/HCPCS: 77063; 77067

== ENCOUNTER → 2020-10-10 13:33 | Outpatient (CLI) | payer MEDICAID, SELFPAY ==
--- NOTE | 2020-10-10 | US_ITS ---
PROCEDURE: MM DIG MAMM BI DX W/CAD Digital Breast Tomosynthesis Included CLINICAL INDICATION: abn mamm Follow-up abnormal mammogram, COMPARISON: MG MM SCREENING MAMMOGRAM from 10/15/2011 MG MM SCREENING MAMMOGRAM from 11/27/2013 MG MM DIG SCREENING MAMM BI W/CAD from 09/24/2020 US US BREAST LT COMPLETE from 10/10/2020 US US BREAST RT COMPLETE from 10/10/2020 TECHNIQUE: Mag views are obtained along with bilateral breast ultrasound FINDINGS: Right breast: There is a cluster of pleomorphic calcifications in the deep upper outer aspect of the right breast. These are mildly suspicious. Stereotactic directed biopsy suggested. There is some asymmetry in the outer aspect of the right breast as seen on CC view. This however has been present dating back to 10/15/2011. No sonographic correlate. There is an additional small cluster of microcalcifications in the central aspect of the right breast. Suggest Mag views of this area as well as these are also slightly suspicious and have developed since the previous exams. Right breast ultrasound: Unremarkable. No cystic or solid lesions evident. Left breast: There is coarse clustered calcifications in the central aspect of the left breast. These are mostly coarse in nature. . Left breast ultrasound: No cystic or solid lesions evident. IMPRESSION: Mildly suspicious calcifications of the right breast in 2 different areas. Suggest stereotactic breast biopsy. Would recommend Mag views of the central calcifications at the time of the stereotactic biopsy. Calcifications in the left breast are probably benign. These may be followed in 6 months. BI-RAD Category: 4 Suspicious Abnormality - Biopsy Considered right breast FOLLOW-UP: BIO Biopsy Recommended (A letter has been sent to the patient regarding results of the study.) Dictated by: Bowen Page MD 10/16/2020 10:15 Bowen Page MD in [place] 10/16/2020 10:16
== END ==
PROVIDERS: PCP Emergency Medicine; Visit Provider Emergency Medicine
DX: R92.8 Other abnormal and inconclusive findings on diagnostic imaging of breast (principal)
CPT/HCPCS: 76641; 77062; 77066; G0279

== ENCOUNTER → 2020-11-05 08:26 | Outpatient (CLI) | payer MEDICAID, SELFPAY ==
--- NOTE | 2020-11-05 08:34 | MM_ITS ---
PROCEDURE: MM STEREOTACTIC LOC RT Digital Breast Tomosynthesis Included CLINICAL INDICATION: abnormal mammogram Abnormal mammogram demonstrating 2 clusters of suspicious calcifications 1 in the deep upper outer aspect and 1 centrally COMPARISON: MG MM SCREENING MAMMOGRAM from 11/27/2013 MG MM DIG SCREENING MAMM BI W/CAD from 09/24/2020 MG MM DIG MAMM BI DX W/CAD from 10/10/2020 MG MM STEREOTACTIC RT LOC EA ADD from 11/05/2020 MG MM CLIP PLACEMENT RT from 11/05/2020 MG MM SURGICAL SPECIMEN RT from 11/05/2020 TECHNIQUE: Pre biopsy may repeat mammogram images demonstrated some indeterminate calcifications in the lateral aspect of the right breast centrally along with the suspicious calcifications in the deep lateral aspect of the right breast. Both areas were biopsied. Mild sedation obtained with 1 mg of alprazolam and 7.5 mg hydrocodone with acetaminophen. Following obtaining informed consent and time-out procedure patient was placed in the stereotactic unit and the calcifications in the deep upper outer aspect were initially located and labeled as 9 o'clock. Under aseptic conditions and local anesthesia with 1 percent buffered lidocaine, skin catherine was performed and mammotome needle inserted. Multiple cores were obtained with tissue specimen demonstrating calcifications of interest. A clip was then placed. The specimen was labeled as a, 9 o'clock Second biopsy was then performed of the central calcifications in the same manner. A clip was placed. This specimen was labeled as specimen B central calcifications.. Specimen radiograph demonstrated calcifications of interest. A non ferromagnetic sterile clip was then placed. Post biopsy mammogram: Post biopsy mammogram reveals the clips in place in the right paracentral aspect of the breast and in the deep lateral. There are few residual calcifications in both sites. Pathology: Specimen a: 9 o'clock: Fibroadenomatoid change with associated microcalcifications. No malignancy or atypia. Associated microcalcifications. Specimen B: Central right breast slightly lateral. Scattered breast tissue with mild fibrosis. No atypical hyperplasia in situ or invasive carcinoma. Calcifications were felt to be present on the specimen radiograph but were somewhat ill-defined. IMPRESSION: Uneventful stereotactic directed biopsy of the right breast x2 showing benign findings. Calcifications were felt to be present on the central specimen radiograph but were not identified by pathology. They did appear to be less numerous on the post biopsy mammogram. Would suggest repeat right mammogram in 3 months to confirm that the calcifications were removed. Dictated by: Bowen Page MD 11/10/2020 10:01 Bowen Page MD in [place] 11/10/2020 10:01
== END ==
PROVIDERS: PCP Emergency Medicine; Visit Provider Emergency Medicine
DX: R92.1 Mammographic calcification found on diagnostic imaging of breast (principal)
CPT/HCPCS: 19081; 19082; 76098; 77065

== ENCOUNTER → 2020-12-17 13:10 | Outpatient (CLI) | payer MEDICAID, SELFPAY ==
[2020-12-17 14:00] VITALS: BP 130/84; BP 136/82; PULSE 84; PULSE 91; RESP 20; O2SAT 92; O2SAT 97
--- NOTE | 2020-12-17 16:40 | RESP.PFTSS ---
Patient was unable to complete the PFT due to being unable to follow simple commands. Patient not charged for test. The walk test was done and results charted.
== END ==
PROVIDERS: PCP Emergency Medicine; Visit Provider Internal Medicine Pulmonary Disease
DX: R06.00 Dyspnea, unspecified (principal)
CPT/HCPCS: 94618

== ENCOUNTER → 2021-02-24 13:52 | Outpatient (CLI) | payer MEDICAID, SELFPAY ==
--- NOTE | 2021-02-24 13:52 | MM_ITS ---
PROCEDURE: MM DIG MAMM BI DX W/CAD Digital Breast Tomosynthesis Included CLINICAL INDICATION: breast pain Follow-up right breast biopsy and left breast calcifications. COMPARISON: MG MM SCREENING MAMMOGRAM from 11/27/2013 MG MM DIG SCREENING MAMM BI W/CAD from 09/24/2020 MG MM DIG MAMM BI DX W/CAD from 10/10/2020 MG MM STEREOTACTIC RT LOC EA ADD from 11/05/2020 MG MM SURGICAL SPECIMEN RT from 11/05/2020 MG MM STEREOTACTIC LOC RT from 11/05/2020 MG MM CLIP PLACEMENT RT from 11/05/2020 TECHNIQUE: Standard CC and MLO images and 3D Tomosynthesis was obtained. R2 CAD reviewed. FINDINGS: Average fibroglandular tissue. There is a coarse cluster of calcifications in the central 1/3 of the left breast as seen on the CC view which appears benign. Just posterior to this there is a additional cluster of microcalcifications which appear to have slightly increased in number as seen on the Mag views. Suggest stereotactic biopsy for further evaluation. The suspicious calcifications in the deep lateral aspect of the right breast have been removed and a clip is in place. A 2nd clip is present in the central 1/3 of the breast slightly lateral. There is a persistent small cluster of calcifications lateral to the clip which are somewhat pleomorphic and not removed on the previous biopsy. Suggest repeat biopsy of these calcifications for removal. IMPRESSION: Suspicious calcifications of the left breast. 1 of the clusters of the right breast with not removed and repeat biopsy is suggested. BI-RAD Category: 4 Suspicious Abnormality-Biopsy Considered FOLLOW-UP: BIO Biopsy Recommended of both breasts (A letter has been sent to the patient regarding results of the study.) Dictated by: Bowen Pgae MD 02/27/2021 18:07 Bowen Page MD in [place] 02/27/2021 18:07
== END ==
PROVIDERS: PCP Emergency Medicine; Visit Provider Obstetrics & Gynecology
DX: N64.4 Mastodynia (principal)
CPT/HCPCS: 77062; 77066; G0279

== ENCOUNTER → 2021-03-31 10:11 | Outpatient (CLI) | payer MEDICAID, SELFPAY ==
--- NOTE | 2021-03-31 10:22 | MM_ITS ---
PROCEDURE: MM STEREOTACTIC LOC LT MM STEREOTACTIC LOC RT MM CLIP PLACEMENT RIGHT MM CLIP PLACEMENT LEFT MM SURGICAL SPECIMEN RIGHT MM SURGICAL SPECIMEN LEFT CLINICAL INDICATION: abnormal mamm Bilateral breast suspicious calcifications. TECHNIQUE: The patient was given 1 mg of Xanax, Lortab 7.5 mg, 4 analgesia and minor sedation. This technique was performed both for the left and the right breast for calcifications in the central 1/3 of the left breast slightly inferior and slightly lateral to the central aspect of the right breast. The patient was placed on the stereotactic table and the abnormalities were localized in the most appropriate projection. The breasts were prepped in the routine manner, with sterile prep and the overlying skin anesthetized. A 3 to 4 mm skin incision was performed and the 9 gauge sorus vacuum-assisted core biopsy needle was advanced to the region of the calcification. Pre- and post fire images were obtained. After adequate positioning relative to the calcifications was ensured, multiple biopsies were obtained in the region of the calcifications specifically. The core biopsies obtained were sent for specimen mammography. After the calcifications were indeed identified on the specimen mammogram, the procedure was terminated. This was performed on both sides Bilateral non ferromagnetic micro kimber clips were placed and deemed to be in satisfactory position. Pathology right breast lateral calcifications: Fibroadenomatoid change with associated microcalcifications. No atypical ductal hyperplasia, in situ or invasive carcinoma Pathology left breast central calcifications: Fibroadenomatoid change with associated microcalcifications. No atypical ductal hyperplasia in situ or invasive carcinoma. IMPRESSION: 1. Successful stereotactic vacuum-assisted core biopsy of t bilateral breast calcifications. 2. Successful placement of a titanium metal MicroMark clips. 3. No noted complications. SPECIMEN RADIOGRAPH: Right and left breast. The mammographically evident calcifications from the prior study are currently evident within the Shaw dish and within the specimens obtained during mammotome procedure. This is considered an adequate specimen and the procedure was terminated. IMPRESSION: Successful removal of described breast calcifications. BREAST MAMMOGRAM: A small MicroMark clip was inserted into the region of the calcifications. On the right there was some residual calcifications in the biopsy bed however some more removed. On the left good majority of the calcifications were removed. There is evidence of soft tissue changes in the region of the biopsy was soft tissue gas and edema. 4. Adequate placement of the MicroMark clip postbiopsy. 5. Postbiopsy changes within the breast. 6. Recommend bilateral 6 month mammographic follow-up to per routine protocol Dictated by: Bowen Page MD 04/07/2021 15:43 Bowen Page MD in [place] 04/07/2021 15:43
== END ==
PROVIDERS: PCP Emergency Medicine; Visit Provider Obstetrics & Gynecology
DX: R92.8 Other abnormal and inconclusive findings on diagnostic imaging of breast (principal)
CPT/HCPCS: 19081; 76098; 77065

== ENCOUNTER 2021-03-31 16:40 | Inpatient (IN) | payer MEDICAID, SELFPAY ==
[2021-03-31] VITALS (21 sets, daily range): BP systolic 116–151; BP diastolic 64–78; PULSE 67–88; RESP 14–22; TEMP 36.8; O2SAT 88–100; BMI 33.4
--- NOTE | 2021-03-31 16:51 | HMH.EDGENADL ---
ED Disposition Clinical Impression: Acute respiratory failure with hypoxia and hypercapnia Fall Qualifiers: Encounter type: initial encounter Qualified Code(s): W19.XXXA - Unspecified fall, initial encounter Contusion of left hip Qualifiers: Encounter type: initial encounter Qualified Code(s): S70.02XA - Contusion of left hip, initial encounter Altered mental status Qualifiers: Altered mental status type: somnolence Qualified Code(s): R40.0 - Somnolence Disposition: Admitted As Inpatient Condition on Discharge: Fair Referrals: Jared Pak MD [Primary Care Provider] - - Critical Care Critical Care Time: Yes Attestation: On , the high probability of a clinically significant, sudden or life threatening deterioration of the following system(s) required my full and direct attention, intervention and personal management. The time I documented below is in addition to time spent performing reported procedures but includes the following listed in this critical care notation. Vital system(s) involved:: Respiratory Failure My critical care processes included: Assessment & monitoring of V/S, Initial and Re-exams, Data Review/Interpretation, Coordinating Care, Medication Orders and management, Documentation Medical Decision Making - Medical Records Medical records reviewed: Yes: I reviewed the patient's medical records. MR Comment: Review of records from today shows patient was administered Xanax and hydrocodone/APAP 7.5 mg for her biopsy at 1130a. - Vlad Inquiry Pt receiving controlled substance: No Vital Signs: 03/31/21 16:40 03/31/21 16:43 03/31/21 16:54 Temperature 98.3 F Temperature Source Oral Pulse Rate 88 87 Pulse Rate [Left] 86 Respiratory Rate 14 Blood Pressure Blood Pressure [Right Arm] 130/70 Blood Pressure Mean Blood Pressure Mean [Right Arm] 90 Blood Pressure Source [Right Arm] Automatic Cuff 02 Sat by Pulse Oximetry 88 L 91 L 93 L Oxygen Delivery Method Room Air Nasal Cannula Nasal Cannula Oxygen Flow Rate (LPM) 4 4 4 03/31/21 17:00 03/31/21 17:32 03/31/21 17:37 Temperature Temperature Source Pulse Rate 86 Pulse Rate [Left] Respiratory Rate Blood Pressure 126/71 137/76 Blood Pressure [Right Arm] Blood Pressure Mean 87 Blood Pressure Mean [Right Arm] Blood Pressure Source [Right Arm] 02 Sat by Pulse Oximetry 100 96 Oxygen Delivery Method Nasal Cannula Oxygen Flow Rate (LPM) 4 2 03/31/21 18:49 Temperature Temperature Source Pulse Rate 80 Pulse Rate [Left] Respiratory Rate Blood Pressure Blood Pressure [Right Arm] Blood Pressure Mean Blood Pressure Mean [Right Arm] Blood Pressure Source [Right Arm] 02 Sat by Pulse Oximetry Oxygen Delivery Method Oxygen Flow Rate (LPM) - Lab Data Lab Results 03/31/21 17:33: WBC 7.6, RBC 4.72, Hgb 13.8, Hct 44.0, MCV 93.3, MCH 29.3, MCHC 31.4 L, RDW 13.6, Plt Count 167, MPV 9.0, Neut % (Auto) 60.6, Lymph % (Auto) 29.2, [place] % (Auto) 8.2, Eos % (Auto) 1.5, Baso % (Auto) 0.5, Neut # (Auto) 4.6, Lymph # (Auto) 2.2, [place] # (Auto) 0.6, Eos # (Auto) 0.1, Baso # (Auto) 0.0 03/31/21 17:33: Sodium 142, Potassium 3.5, Chloride 102, Carbon Dioxide 33 H, Anion Gap 10.5, BUN 10, Creatinine 0.60, Estimated Creat Clear 177, Estimated GFR 106, Est GFR ( Amer) 128, Glucose 98, Calcium 8.3 L, Total Bilirubin 0.2, AST 69 H, ALT 28, Alkaline Phosphatase 91, Troponin I < 0.01, Total Protein 6.8, Albumin 3.4 L, Globulin 3.4 H, Albumin/Globulin Ratio 1.0 L 03/31/21 17:45: Specimen Source R/r, O2 % 2, ABG pH 7.32 L, ABG pCO2 57.6 H, ABG pO2 77.4 L, ABG HCO3 29.1 H, ABG Total CO2 30.9 H, ABG O2 Saturation 94, ABG Base Excess 3.1 H 03/31/21 18:32: SARS-CoV-2 (PCR) Not detected, Influenza A Untype (PCR) Not detected, Influenza Type B (PCR) Not detected Result diagrams: 03/31/21 17:33 03/31/21 17:33 Orders (Tests/Meds): ED MEDICATIONS Discontinued Medications Generic Name Dose Route St
--- NOTE | 2021-03-31 17:09 | XR_ITS ---
PROCEDURE INFORMATION: Exam: XR Left Hip Exam date and time: 03/31/2021 5:09 PM Age: 50 years old Clinical indication: Injury or trauma; Fall; Blunt trauma (contusions or hematomas); Left; Hip TECHNIQUE: Imaging protocol: XR Left hip. Views: 2 or 3 views hip with pelvis when performed. COMPARISON: [id number] CT abdomen pelvis w con 01/20/2019 6:06 PM FINDINGS: Bones/joints: No acute fracture or dislocation is seen. Mild degenerative changes of the hips are present. There is fusion of the sacroiliac joints. Soft tissues: A ventral hernia repair has been performed. IMPRESSION: 1. No acute abnormality. 2. Chronic findings as discussed above.
--- NOTE | 2021-03-31 17:09 | CT_ITS ---
PROCEDURE INFORMATION: Exam: CT Cervical Spine Without Contrast Exam date and time: 03/31/2021 5:09 PM Age: 50 years old Clinical indication: Injury or trauma; Fall; Blunt trauma; Injury date: 03/31/21 TECHNIQUE: Imaging protocol: Computed tomography images of the cervical spine without contrast. Radiation optimization: All CT scans at this facility use at least one of these dose optimization techniques: automated exposure control; mA and/or kV adjustment per patient size (includes targeted exams where dose is matched to clinical indication); or iterative reconstruction. COMPARISON: CR [id number] XR cervical spine 3V 12/21/2017 9:34 PM FINDINGS: Bones/joints: No acute fracture. Normal alignment. Discs/Spinal canal/Neural foramina: No significant spinal canal stenosis or neural foraminal narrowing. Lungs: Lung apices are clear. Vasculature: Incidental note is made of an aberrant right subclavian artery. Soft tissues: Unremarkable. IMPRESSION: No acute abnormality.
--- NOTE | 2021-03-31 17:09 | CT_ITS ---
PROCEDURE INFORMATION: Exam: CT Head Without Contrast Exam date and time: 03/31/2021 5:09 PM Age: 50 years old Clinical indication: Injury or trauma; Fall; Blunt trauma (contusions or hematomas); Consciousness not specified; Injury date: 03/31/21 TECHNIQUE: Imaging protocol: Computed tomography of the head without contrast. Radiation optimization: All CT scans at this facility use at least one of these dose optimization techniques: automated exposure control; mA and/or kV adjustment per patient size (includes targeted exams where dose is matched to clinical indication); or iterative reconstruction. COMPARISON: CR NASALBN XR nasal bones min 3V 12/21/2017 9:39 PM FINDINGS: Limitations: The study is mildly limited due to patient motion artifact. Brain: There is no acute intracranial hemorrhage, cerebral edema, or midline shift. Dilated perivascular spaces are noted in the bilateral basal ganglia. Cerebral ventricles: No hydrocephalus. Paranasal sinuses: Right maxillary sinusitis is present. Mastoid air cells: Visualized mastoid air cells are well aerated. Orbital cavity: There is moderate bilateral proptosis due to increased intraorbital fat. Bones/joints: No acute fracture. Soft tissues: Unremarkable. IMPRESSION: No acute intracranial abnormality.
--- NOTE | 2021-03-31 17:09 | XR_ITS ---
PROCEDURE INFORMATION: Exam: XR Chest Exam date and time: 03/31/2021 5:09 PM Age: 50 years old Clinical indication: Injury or trauma; Fall; Blunt trauma (contusions or hematomas) TECHNIQUE: Imaging protocol: XR of the chest. Views: 1 view. COMPARISON: CR CXR CHEST(2 VIEWS-NOT PORTABLE) 11/01/2015 8:13 PM FINDINGS: Lungs: Unremarkable. No consolidation. Pleural spaces: Unremarkable. No pleural effusion. No pneumothorax. Heart/Mediastinum: Unremarkable. No cardiomegaly. Bones/joints: Unremarkable. IMPRESSION: No acute findings.
--- NOTE | 2021-03-31 17:10 | ECG_ITS ---
APPROVED REPORT Exam: Resting ECG HR:84 bpm ECG Measurements Heart Rate 84 AXES OR 146 P 69 QRSd 94 QRS 94 QT 380 T 58 QTc 449 Conclusion Normal sinus rhythm Rightward axis Borderline ECG Electronically signed by : Praful Kaufman MD 04/01/2021 17:43:38
[2021-03-31 17:43] LABS: Basophils % 0.5 % (0.1-2.0); Eosinophils # 0.1 K/mm3 (0.0-0.4); Eosinophils % 1.5 % (0.1-12.0); Hemoglobin 13.8 g/dL (12.2-16.2); Lymphocytes # 2.2 K/mm3 (0.7-4.5); Lymphocytes % 29.2 % (10-50); Mean Corpuscular HGB Conc 31.4 g/dL (31.8-35.4); Mean Corpuscular Hemoglobin 29.3 pg (27.0-31.2); Mean Corpuscular Volume 93.3 fl (81-99); Monocytes # 0.6 K/mm3 (0.1-1.0); Monocytes % 8.2 % (1.7-9.3); Neutrophils # 4.6 K/mm3 (1.8-7.8); Neutrophils % 60.6 % (37.0-80.0); Platelet Count 167 K/mm3 (142-424); Red Blood Count 4.72 M/mm3 (4.20-5.40); Red Cell Distribution Width 13.6 % (11.5-17.5); White Blood Count 7.6 K/mm3 (4.8-10.8)
[2021-03-31 17:45] LABS: Chloride 102 mmol/L (98-107)
[2021-03-31 17:46] LABS: Potassium 3.5 mmoL/L (3.5-5.1); Sodium 142 mmol/L (136-145)
[2021-03-31 17:48] LABS: ABG Base Excess 3.1 mmol/L (-2.4-2.3); ABG HCO3 29.1 mmhg (22.0-26.0); ABG Oxygen Saturation 94 % (90-100); ABG PH 7.32 mmol/L (7.35-7.45); ABG PO2 77.4 mmhg (80-100); ABG TCO2 30.9 mmhg (23-27); Oxygen 2 %
[2021-03-31 17:48] LABS: Alanine Aminotransferase 28 U/L (12-78); Alkaline Phosphatase 91 U/L (38-126); Aspartate Amino Transferase 69 U/L (14-36); Bilirubin,Total 0.2 mg/dl (0.2-1.3); Blood Urea Nitrogen 10 mg/dl (7-17); Creatinine Clearance Estimated 177 mL/min (50-200); Estimated Glomerular Filt Rate 106 ml/min (>60); GFR (African American) 128 ML/MIN (>60)
[2021-03-31 17:49] LABS: Source R/R
[2021-03-31 17:49] LABS: Albumin Level 3.4 g/dl (3.5-5.0); Anion Gap 10.5 mEq/L (5-15); Calcium 8.3 mg/dl (8.4-10.2); Carbon Dioxide 33 mmol/L (22.0-30.0); Globulin 3.4 g/dL (1.3-3.2); Glucose 98 mg/dl (74-100); Total Protein,Serum 6.8 g/dl (6.3-8.2)
[2021-03-31 17:50] LABS: ABG PCO2 57.6 mmhg (35.0-45.0)
--- NOTE | 2021-03-31 17:51 | PC.NURSE ---
Respiratory called with critical value of CO2 at 57.6
[2021-03-31 18:02] LABS: Troponin I < 0.01 ng/ml (0.00-0.034)
[2021-03-31 18:38] LABS: Coronavirus 19, PCR Not Detected (NotDetected); Influenza A, PCR Not Detected (NotDetected); Influenza B, PCR Not Detected (NotDetected)
[2021-03-31 19:39] LABS: Microscopic, Urine URINE MICROSCOPIC (MICROSCOPIC)
[2021-03-31 19:45] LABS: Appearance,Urine CLOUDY (Clear); Blood, Urine Negative (Negative); Color,Urine DK YELLOW (Yellow); Glucose,Urine (UA) Negative (Negative); Ketones,Urine TRACE (Negative); Leukocyte Esterase,Urine TRACE (Negative); Nitrate,Urine POSITIVE (Negative); Protein,Urine 1+ (Negative); Specific Gravity, Urine >= 1.030 (1.005-1.030)
[2021-03-31 19:58] LABS: Bilirubin,Urine 1+ (Negative)
[2021-03-31 20:02] LABS: Bacteria,Urine 3+ /lpf
--- NOTE | 2021-03-31 20:26 | HMH.HP ---
*Admission Date: 03/31/21 *Chief complaint: sob *History of present illness: this is a patient from [facility]-brought in by ambulance from [facility]. She reportedly fell and complained of left hip pain. Patient appears very drowsy here, speech is very soft and slurred and she is very difficult to understand. She does endorse left hip pain. Her only other pain is in her breast area where she had a breast biopsy today, she says she also got stitches in the area. Unable to obtain any other significant history from her. Nurse noted hypoxia with O2 sat 88-92% on RA on her arrival and is placed on nasal cannula oxygen. Review of her chart shows that she has seen Dr. Armenta, pulmonology, for intermittent hypoxia-pt with abn abg and was admitted to [facility] for treatment [facility] History I have reviewed the patient's past medical history: Yes Medical History: Reports:: Anxiety, Asthma, Chronic Obstructive Pulmonary Disease (COPD), Depression, Hyperlipidemia, Migraine Denies:: Diabetes Mellitus Type 1, Diabetes Mellitus Type 2 *Have you ever received a pneumonia vaccine?: No *Have you received a flu vaccine this season?: No Other Medical History: Reports: Other Other Surgeries: Yes: Other - *Social History Smoking Status: Current every day smoker Tobacco Type: cigarettes # Packs/Day (cigarettes): 1 #Yrs smoked (if former smoker): 20 Alcohol Intake: never Substance Use Type: denies use *Occupational Status:: disabled Housing: residential Household Members: other *Travel in the last 8 weeks: None - Psychiatric History Pschychiatric History:: Reports:: Anxiety, Depression Family Hx:: Cancer Review of Systems - Review of Systems Review of systems:: pertinent systems reviewed and negative unless documented below - Constitutional Denies fever(s) - Eyes Denies change in vision - ENT Denies sore throat - *Cardiovascular Denies chest pain with activity - *Respiratory Reports shortness of breath, Denies cough - *Gastrointestinal Denies abdominal pain - *Genitourinary Denies blood in urine - *Musculoskeletal Denies joint pain - Integumentary/Breasts Denies rash - *Neurologic Denies localized weakness, Denies headache(s), Denies seizure-like activity - Psychiatric Denies confusion Meds Home Medications Medication Instructions Recorded Confirmed Type Divalproex Sodium [Depakote] 500 mg PO DAILY 12/21/17 03/31/21 History bupropion HCl 300 mg 24 hr tablet, 300 mg PO QAM 01/16/18 03/31/21 History extended release trazodone 50 mg tablet 50 mg PO QHS PRN 12/29/18 03/31/21 History dextromethorphan 20 mg-quinidine 1 cap PO Q12H 11/24/20 03/31/21 History 10 mg capsule ergocalciferol (vitamin D2) 1,250 1,250 mcg PO WEEKLY 11/24/20 03/31/21 History mcg (50,000 unit) capsule fluticasone 250 mcg-salmeterol 50 1 inh INHALATION BID 11/24/20 03/31/21 History mcg/dose blistr powdr for inhalation guaifenesin 100 mg/5 mL oral liquid 200 mg PO Q4H PRN 11/24/20 03/31/21 History hydroxyzine HCl 25 mg tablet 25 mg PO TID PRN 11/24/20 03/31/21 History loperamide 2 mg tablet 2 mg PO Q6H PRN 11/24/20 03/31/21 History loratadine 10 mg tablet 10 mg PO DAILY 11/24/20 03/31/21 History omeprazole 40 mg capsule,delayed 40 mg PO DAILY 11/24/20 03/31/21 History release prazosin 1 mg capsule 1 mg PO HS 11/24/20 03/31/21 History sertraline 100 mg tablet 100 mg PO DAILY 11/24/20 03/31/21 History sertraline 100 mg tablet 100 mg PO DAILY 11/24/20 03/31/21 History acetaminophen 500 mg capsule 500 mg PO Q6H PRN 02/13/21 03/31/21 History benztropine 0.5 mg tablet 0.5 mg PO BID 02/13/21 03/31/21 History bupropion HCl 150 mg 24 hr tablet, 150 mg PO DAILY 02/13/21 03/31/21 History extended release buspirone 5 mg tablet 30 mg PO BID tab 02/13/21 03/31/21 History divalproex 250 mg tablet,delayed 250 mg PO TID 02/13/21 03/31/21 History release nystatin 100,000 unit/gram topical 1 applic TOPICAL BID 02/13/21 08
[2021-03-31 21:37] LABS: Troponin I < 0.01 ng/ml (0.00-0.034)
--- NOTE | 2021-03-31 23:00 | PC.NURSE ---
repositioned patient. no acute distress. remains on bipap at this time. called to check on bed status, spoke with house. continuing to wait on bed at this time.
[2021-03-31 23:22] LABS: ABG Base Excess 4.8 mmol/L (-2.4-2.3); ABG HCO3 30.7 mmhg (22.0-26.0); ABG Oxygen Saturation 94 % (90-100); ABG PH 7.33 mmol/L (7.35-7.45); ABG TCO2 32.5 mmhg (23-27)
[2021-03-31 23:23] LABS: Allen's Test Patient Unable; Oxygen 32 %; Pressure Support 10; Source Right Radial
[2021-03-31 23:25] LABS: ABG PCO2 59.4 mmhg (35.0-45.0)
[2021-04-01] VITALS (21 sets, daily range): BP systolic 113–168; BP diastolic 63–95; PULSE 68–90; RESP 13–24; TEMP 36.6–37.1; O2SAT 88–98; BMI 43.0
[2021-04-01 00:48] LABS: Troponin I < 0.01 ng/ml (0.00-0.034)
[2021-04-01 05:05] LABS: ABG Base Excess 7.4 mmol/L (-2.4-2.3); ABG Oxygen Saturation 96 % (90-100); ABG PH 7.35 mmol/L (7.35-7.45); ABG PO2 83.2 mmhg (80-100); ABG TCO2 34.9 mmhg (23-27)
[2021-04-01 05:07] LABS: Allen's Test Patient Unable; Oxygen 32 %; Pressure Support 12; Source Right Brachial; Tidal Volume 412; Vent Rate 14
[2021-04-01 05:09] LABS: ABG PCO2 61.1 mmhg (35.0-45.0)
--- NOTE | 2021-04-01 05:21 | CA_ITS ---
APPROVED REPORT EXAM: Comprehensive 2D, Doppler, and color-flow Echocardiogram Structural Ironworker: María Garsia CRT Ht: 5 ft 8 in Wt: 220lbs BSA: 2.13 BP: 131/81 mmHg Indications: COPD, Murmur, Hyperlipidemia, Hypertension/HDD, UTI, Bipolar 2D Dimensions LVOT 1.99 cm (M/F) 1.5-2.5 LA Volume 51.00 mL LA Volume Index 23.90 mL/m2 (M/F) 16-34 M-Mode Dimensions RVDd 3.05 cm (0.9-2.6) LA Diam 4.02 cm (1.9-4.0) LVDd 4.05 cm (3.5-5.7) Ao Diam 3.85 cm (2.0-3.7) LVDs 2.93 cm (3.5-5.7) IVSd 1.89 cm (0.6-1.1) PWd 1.04 cm (0.6-1.1) EF (Teich) 54.20% FS 27.70% EDV (Teich) 72.10 mL TAPSE 1.83 (<1.7) ESV (Teich) 33.00 mL LV Diastology E Decel Time 107.00 (160-240 msec) E/A Ratio 1.09 MED E' 6.10 (< 7 cm/sec) MED A' 8.60 cm/s E'/MED E' Ratio 10.18 (>14) LAT E' 10.10 (<10 cm/sec) LAT A' 9.50 cm/s E/LAT E' Ratio 6.15 (>14) Aortic Valve AO Peak GR. 6.80 mmHg Mitral Valve MV A Velocity 57.00 (40-130 cm/s) E/A Ratio 1.09 MV Decel. Time 107.00 (160-240 ms) Pulmonary Valve PV Peak Velocity 103.00 (50-150 cm/s) Tricuspid Valve TR P. Velocity 186.00 cm/s RAP Estimate 10.00 mmHg RVSP 23.90 mmHg Left Ventricle Atrium is mildly enlarged, left ventricle is normal size, mild concentric left ventricular hypertrophy, visually estimated ejection fraction 55% with no regional wall motion abnormality. Grade 1 diastolic dysfunction seen without tissue Doppler evidence of raise left atrial pressure. Right Ventricle Right atrium and right ventricle mildly enlarged with normal contractility. Aortic Valve Aortic valve is grossly normal, there is no aortic stenosis or aortic insufficiency. Mitral Valve Mitral valve is grossly normal, there is trace mitral regurgitation. Tricuspid Valve Tricuspid grossly normal, there is trace tricuspid regurgitation, tricuspid regurgitation jet velocity is inadequate for calculation of the right ventricular systolic pressure. Pulmonic Valve Pulmonic valve is poorly visualized. Great Vessels Aortic root is normal size. Pericardium No significant pericardial effusion noted. Conclusion 1. Mild biatrial normal, normal left ventricular size, mild concentric left ventricular hypertrophy, visually estimated ejection fraction 55% with no regional wall motion abnormality, grade 1 diastolic dysfunction seen without tissue Doppler evidence of raise left atrial pressure. 2. Right ventricle is mildly enlarged with normal contractility. 3. Trace mitral and tricuspid regurgitation. 4. No significant pericardial effusion noted. Electronically signed by : Byron Holloway MD 04/02/2021 14:16:42
--- NOTE | 2021-04-01 05:38 | PC.NURSE ---
notified Respiratory to notifed vascular of Echo ordered
--- NOTE | 2021-04-01 05:40 | PC.NURSE ---
notified steward/stewardess second of pulmonary consult
--- NOTE | 2021-04-01 07:26 | HMH.PHAVTE ---
[facility] Pharmacy VTE Monitoring - Patient Demographics Admission date: 04/01/21 Report Date: 04/01/21 Time: 07:26 Allergies/Adverse Reactions: Patient Allergies banana [From BANANAS (FOOD/DRUG)] Allergy (Mild, Verified 02/13/21 10:14) Unknown allergy reaction chocolate flavor [From CHOCOLATE (FOOD/DRUG)] Allergy (Mild, Verified 02/13/21 10:14) UNKNOWN From BANANAS (FOOD/DRUG) Allergy (Mild, Uncoded 02/13/21 10:14) Unknown allergy reaction From CHOCOLATE (FOOD/DRUG) Allergy (Mild, Uncoded 02/13/21 10:14) UNKNOWN Height: 1.73 m Weight: 99.79 kg Patient Problems: Current Active Problems Fall (Acute) Obesity (Acute) COPD (chronic obstructive pulmonary disease) (Acute) Acute respiratory failure with hypoxia and hypercapnia (Acute) Contusion of left hip (Acute) Altered mental status (Acute) UTI (urinary tract infection) (Acute) - VTE Risk Labs: VTE Related Lab Results Hgb 13.8 g/dL (12.2-16.2) 03/31/21 17:33 Hct 44.0 % (37.0-47.0) 03/31/21 17:33 Plt Count 167 K/mm3 (142-424) 03/31/21 17:33 BUN 10 mg/dl (7-17) 03/31/21 17:33 Creatinine 0.60 mg/dl (0.52-1.04) 03/31/21 17:33 Estimated Creat Clear 177 mL/min (50-200) 03/31/21 17:33 Clinical Trial Participant: No - Prophylaxis VTE Prophylaxis Ordered?: Yes Types of VTE Prophylaxis: TEDS Knee High
--- NOTE | 2021-04-01 08:09 | HMH.PHAINT ---
MEDICATION RECONCILI[facility].
--- NOTE | 2021-04-01 08:13 | PC.NURSE ---
Report called to Maris BRAVO, room is ready just waiting on bed in room and then pt will be transported to room. Maris will contact ER when bed is available for pt
--- NOTE | 2021-04-01 08:14 | XR_ITS ---
PROCEDURE: XR CHEST PORTABLE CLINICAL HISTORY: sob COMPARISON: CR CXR CHEST(2 VIEWS-NOT PORTABLE) from 11/01/2015 CR XR CHEST PORTABLE from 03/31/2021 FINDINGS: There is borderline cardiomegaly without failure. There are low lung volumes. Patchy density is present in the right lung base medially may be due to an area of atelectasis or infiltrate. No acute bony anomalies. . IMPRESSION: Cardiomegaly with suspected small area of atelectasis or infiltrate in the right lung base medially Dictated by: Bowen Page MD 04/01/2021 11:40 Bowen Page MD in [place] 04/01/2021 11:40
[2021-04-01 08:47] LABS: Valproic Acid, (Depakene) 50.5 ug/ml (50-100)
[2021-04-01 08:52] LABS: Ammonia < 9 umol/L (9-30)
--- NOTE | 2021-04-01 10:28 | HMH.PULMCON ---
*Admission Date: 04/01/21 *Reason for consult:: COPD exacerbation, hypercarbic respiratory failure *History of present illness: Ms. Ardon is a 50-year-old female greater than [id number] smoking she carries a diagnosis of apparent Breo inhaler presents hospital status post fall and also found to be in hypercarbic respiratory failure and pulmonary was called for further management. Patient is not clear whether this is a mechanical fall which he admits she felt dizzy before the fall. [facility] History Medical History: Reports:: Anxiety, Asthma, Chronic Obstructive Pulmonary Disease (COPD), Depression, Hyperlipidemia, Migraine Denies:: Diabetes Mellitus Type 1, Diabetes Mellitus Type 2 *Have you ever received a pneumonia vaccine?: No *Have you received a flu vaccine this season?: No Other Medical History: Reports: Other Other Surgeries: Yes: Other - *Social History Smoking Status: Current every day smoker Tobacco Type: cigarettes # Packs/Day (cigarettes): 1 #Yrs smoked (if former smoker): 20 Alcohol Intake: never Substance Use Type: denies use *Occupational Status:: disabled Housing: snf Household Members: other *Travel in the last 8 weeks: None - Psychiatric History Pschychiatric History:: Reports:: Anxiety, Depression Family Hx:: Cancer ROS - Cons Denies anorexia, Denies body ache(s), Denies chills - ENT Denies abnormal hearing - Card Reports shortness of breath, Reports shortness of breath with activity - Resp Respiratory: Reports shortness of breath, Denies chest congestion, Denies cough, Denies excessive phlegm production - GI Gastrointestingal: Denies: abdominal pain - Psych Reports abnormal sleep pattern Meds Home Medications Medication Instructions Recorded Confirmed Type Divalproex Sodium [Depakote] 500 mg PO TID 12/21/17 04/01/21 History bupropion HCl 300 mg 24 hr tablet, 300 mg PO DAILY 01/16/18 04/01/21 History extended release dextromethorphan 20 mg-quinidine 1 cap PO Q12H 11/24/20 03/31/21 History 10 mg capsule ergocalciferol (vitamin D2) 1,250 1,250 mcg PO WEEKLY 11/24/20 03/31/21 History mcg (50,000 unit) capsule guaifenesin 100 mg/5 mL oral liquid 200 mg PO Q4H PRN 11/24/20 03/31/21 History loperamide 2 mg tablet 2 mg PO Q3H PRN 11/24/20 04/01/21 History loratadine 10 mg tablet 10 mg PO DAILY 11/24/20 03/31/21 History omeprazole 40 mg capsule,delayed 40 mg PO DAILY 11/24/20 03/31/21 History release prazosin 1 mg capsule 1 mg PO HS 11/24/20 03/31/21 History sertraline 100 mg tablet 200 mg PO DAILY 11/24/20 04/01/21 History acetaminophen 500 mg capsule 500 mg PO Q6H PRN 02/13/21 03/31/21 History benztropine 0.5 mg tablet 0.5 mg PO BID 02/13/21 03/31/21 History bupropion HCl 150 mg 24 hr tablet, 150 mg PO DAILY 02/13/21 03/31/21 History extended release divalproex 250 mg tablet,delayed 250 mg PO TID 02/13/21 03/31/21 History release nystatin 100,000 unit/gram topical 1 applic TOPICAL BID PRN 02/13/21 03/31/21 History cream paliperidone 9 mg tablet,extended 9 mg PO DAILY 02/13/21 03/31/21 History release 24 hr promethazine 25 mg tablet 25 mg PO Q6H PRN 02/13/21 03/31/21 History Budesonide/Formoterol Fumarate 2 puff INHALATION BID 03/31/21 03/31/21 History [Budesonide-Formoterol 80-4.5] Albuterol Sulfate [Albuterol 1 vial IH BID PRN 04/01/21 04/01/21 History 0.083% 2.5mg/3mL neb] Albuterol Sulfate [Albuterol 2 puffs IH Q6H PRN 04/01/21 04/01/21 History Sulfate Hfa] Buspirone HCl [Buspirone 30mg 30 mg PO BID 04/01/21 04/01/21 History Tablets] Paliperidone [Paliperidone ER] 3 mg PO DAILY 04/01/21 04/01/21 History Trazodone HCl 100 mg PO DAILY 04/01/21 04/01/21 History hydrOXYzine pamoate [Vistaril 25mg 25 mg PO TID PRN 04/01/21 04/01/21 History capsule] Allergies Allergy/AdvReac Type Severity Reaction Status Date / Time banana Allergy Mild Unknown Verified 02/13/21 10:14 [From BANANAS (FOOD/DRUG)] allergy reaction chocol
--- NOTE | 2021-04-01 13:34 | HMH.ACPN2 ---
Internal Medicine - PN: Subj *Date: 04/01/21 *Time: 08:00 Interval history: pt laying in bed bipap in place Exam Vital signs and Labs for Last 24 Hours: Temp Pulse Resp BP Pulse Ox 98.2 F 90 20 115/84 96 04/01/21 12:30 04/01/21 12:30 04/01/21 12:30 04/01/21 12:30 04/01/21 12:30 Laboratory Results - last 24 hr 03/31/21 17:33: WBC 7.6, RBC 4.72, Hgb 13.8, Hct 44.0, MCV 93.3, MCH 29.3, MCHC 31.4 L, RDW 13.6, Plt Count 167, MPV 9.0, Neut % (Auto) 60.6, Lymph % (Auto) 29.2, Tift % (Auto) 8.2, Eos % (Auto) 1.5, Baso % (Auto) 0.5, Neut # (Auto) 4.6, Lymph # (Auto) 2.2, Tift # (Auto) 0.6, Eos # (Auto) 0.1, Baso # (Auto) 0.0 03/31/21 17:33: Sodium 142, Potassium 3.5, Chloride 102, Carbon Dioxide 33 H, Anion Gap 10.5, BUN 10, Creatinine 0.60, Estimated Creat Clear 177, Estimated GFR 106, Est GFR ( Amer) 128, Glucose 98, Calcium 8.3 L, Total Bilirubin 0.2, AST 69 H, ALT 28, Alkaline Phosphatase 91, Troponin I < 0.01, Total Protein 6.8, Albumin 3.4 L, Globulin 3.4 H, Albumin/Globulin Ratio 1.0 L 03/31/21 17:45: Specimen Source R/r, O2 % 2, ABG pH 7.32 L, ABG pCO2 57.6 H, ABG pO2 77.4 L, ABG HCO3 29.1 H, ABG Total CO2 30.9 H, ABG O2 Saturation 94, ABG Base Excess 3.1 H 03/31/21 18:32: SARS-CoV-2 (PCR) Not detected, Influenza A Untype (PCR) Not detected, Influenza Type B (PCR) Not detected 03/31/21 18:35: Urine Color Dk yellow, Urine Appearance Cloudy, Urine pH 6.0, Ur Specific [place] >= 1.030, Urine Protein 1+, Urine Glucose (UA) Negative, Urine Ketones Trace, Urine Blood Negative, Urine Nitrate Positive, Urine Bilirubin 1+ A, Urine Urobilinogen 1.0, Ur Leukocyte Esterase Trace, Urine RBC 5-10, Urine WBC 10-20, Ur Squamous Epith Cells 3-5, Urine Bacteria 3+ 03/31/21 20:30: Troponin I < 0.01 03/31/21 23:00: Specimen Source Right radial, O2 % 32, ABG pH 7.33 L, ABG pCO2 59.4 H, ABG pO2 76.0 L, ABG HCO3 30.7 H, ABG Total CO2 32.5 H, ABG O2 Saturation 94, ABG Base Excess 4.8 H, Bowen Test Patient unable 03/31/21 23:30: Troponin I < 0.01 04/01/21 04:00: Specimen Source Right brachial, O2 % 32, ABG pH 7.35, ABG pCO2 61.1 H, ABG pO2 83.2, ABG HCO3 33.0 H, ABG Total CO2 34.9 H, ABG O2 Saturation 96, ABG Base Excess 7.4 H, Bowen Test Patient unable, Vent Rate 14, Tidal Volume 412 04/01/21 08:08: Ammonia < 9 L 04/01/21 08:08: Total Valproic Acid 50.5 I & O for Last 24 hours: Intake & Output 03/30/21 03/31/21 04/01/21 04/02/21 11:59 11:59 11:59 11:59 Intake Total 360 / 360 Balance 360 / 360 Weight 242 lb 9 oz Microbiology Reports for the Last 24 Hours: Microbiology 03/31/21 18:35 Urine,Catheterized Urine Culture - Preliminary Gram Negative Rods - Constitutional mild distress, obese - *Routine HEENT Exam Head: Present: normocephalic Eye: Present: PERRL ENT: Present: mucous membranes moist - *Routine Neck Exam Present: supple. Absent: lymphadenopathy - *Routine Respiratory Exam Present: decreased breath sounds, wheezes - *Routine Cardiovascular Exam Present: RRR - *Routine Abdominal Exam Present: soft, normoactive bowel sounds. Absent: tenderness - *Routine Extremities Exam Present: normal capillary refill. Absent: cyanosis, clubbing, edema - *Routine Skin Exam Present: warm. Absent: rash - *Routine Neurological Exam Present: alert Assessment and Plan (1) Acute respiratory failure with hypoxia and hypercapnia Status: Acute Category: Medical Code(s): J96.01 - Acute respiratory failure with hypoxia; J96.02 - Acute respiratory failure with hypercapnia (2) Altered mental status Status: Acute Qualifiers: Altered mental status type: somnolence Qualified Code(s): R40.0 - Somnolence Category: Medical Code(s): R41.82 - Altered mental status, unspecified (3) Contusion of left hip Status: Acute Qualifiers: Encounter type: initial encounter Qualified Code(s): S70.02XA - Contusion of left hip, initial encounter Category: Medi
--- NOTE | 2021-04-01 16:54 | PC.NURSE ---
Pt alert to self only. Pt confused, therefore hx from pt is limited. Meds given per sep. RT switched bipap to nasal cannula @ 2 L and pt is in NAD. Lovett remains in place and draining dark german colored urine. Mx continues. VSS.
[2021-04-02] VITALS (11 sets, daily range): BP systolic 144–152; BP diastolic 74–87; PULSE 73–85; RESP 18–20; TEMP 36.4–36.9; O2SAT 93–98; BMI 41.1
--- NOTE | 2021-04-02 03:47 | PC.NURSE ---
PT A&OX2. TOLERATING 2LNC T/O SHIFT WITH O2 SAT IN MID 90S. PT UP IN ROOM WITH STANDBY ASSIST, AMBULATING WELL. F/C IN PLACE DRAINING BRIGHT YELLOW URINE. PT HAS HAD NO C/O THUS FAR, SLEEPING MAJORITY OF SHIFT. PT HAS O2 RECORDER IN PLACE. VSS WILL CONTINUE TO MONITOR.
[2021-04-02 07:04] LABS: Basophils % 0.4 % (0.1-2.0); Eosinophils # 0.1 K/mm3 (0.0-0.4); Eosinophils % 0.8 % (0.1-12.0); Hematocrit 41.1 % (37.0-47.0); Hemoglobin 12.8 g/dL (12.2-16.2); Lymphocytes # 2.6 K/mm3 (0.7-4.5); Lymphocytes % 33.8 % (10-50); Mean Corpuscular HGB Conc 31.2 g/dL (31.8-35.4); Mean Corpuscular Hemoglobin 29.6 pg (27.0-31.2); Mean Corpuscular Volume 94.7 fl (81-99); Mean Platelet Volume 8.8 fl (7.4-10.4); Monocytes # 0.6 K/mm3 (0.1-1.0); Monocytes % 8.3 % (1.7-9.3); Neutrophils # 4.3 K/mm3 (1.8-7.8); Neutrophils % 56.8 % (37.0-80.0); Platelet Count 159 K/mm3 (142-424); Red Blood Count 4.34 M/mm3 (4.20-5.40); Red Cell Distribution Width 13.4 % (11.5-17.5); White Blood Count 7.6 K/mm3 (4.8-10.8)
[2021-04-02 07:16] LABS: Anion Gap 9.6 mEq/L (5-15); Blood Urea Nitrogen 14 mg/dl (7-17); Calcium 8.1 mg/dl (8.4-10.2); Carbon Dioxide 34 mmol/L (22.0-30.0); Chloride 102 mmol/L (98-107); Creatinine Clearance Estimated 106 mL/min (50-200); Estimated Glomerular Filt Rate 131 ml/min (>60); GFR (African American) 158 ML/MIN (>60); Glucose 77 mg/dl (74-100); Potassium 3.6 mmoL/L (3.5-5.1); Sodium 142 mmol/L (136-145)
--- NOTE | 2021-04-02 09:17 | HMH.ACPN2 ---
Internal Medicine - PN: Subj *Date: 04/02/21 *Time: 09:17 Interval history: pt sitting up in chair voiced no c/o on o2 at 2 liters, [place]jo at bedside Exam Vital signs and Labs for Last 24 Hours: Temp Pulse Resp BP Pulse Ox 98.2 F 76 20 146/74 H 95 04/02/21 07:59 04/02/21 07:59 04/02/21 07:59 04/02/21 07:59 04/02/21 07:59 Laboratory Results - last 24 hr 04/02/21 06:26: WBC 7.6, RBC 4.34, Hgb 12.8, Hct 41.1, MCV 94.7, MCH 29.6, MCHC 31.2 L, RDW 13.4, Plt Count 159, MPV 8.8, Neut % (Auto) 56.8, Lymph % (Auto) 33.8, Saline % (Auto) 8.3, Eos % (Auto) 0.8, Baso % (Auto) 0.4, Neut # (Auto) 4.3, Lymph # (Auto) 2.6, Saline # (Auto) 0.6, Eos # (Auto) 0.1, Baso # (Auto) 0.0 04/02/21 06:26: Sodium 142, Potassium 3.6, Chloride 102, Carbon Dioxide 34 H, Anion Gap 9.6, BUN 14 D, Creatinine 0.50 L, Estimated Creat Clear 106, Estimated GFR 131, Est GFR ( Amer) 158 D, Glucose 77, Calcium 8.1 L I & O for Last 24 hours: Intake & Output 03/30/21 03/31/21 04/01/21 04/02/21 11:59 11:59 11:59 11:59 Intake Total 2777 / 2777 Output Total 601 / 601 Balance 2176 / 2176 Weight 242 lb 9 oz 232 lb 2 oz Microbiology Reports for the Last 24 Hours: Microbiology 03/31/21 18:35 Urine,Catheterized Urine Culture - Final Escherichia coli - Constitutional no acute distress, obese - *Routine HEENT Exam Head: Present: normocephalic Eye: Present: PERRL ENT: Present: mucous membranes moist - *Routine Neck Exam Present: supple. Absent: lymphadenopathy - *Routine Respiratory Exam Present: decreased breath sounds, wheezes - *Routine Cardiovascular Exam Present: RRR - *Routine Abdominal Exam Present: soft, normoactive bowel sounds. Absent: tenderness - *Routine Extremities Exam Absent: cyanosis, clubbing, edema - *Routine Skin Exam Present: warm. Absent: rash - *Routine Neurological Exam Present: alert - Routine Psychiatric Exam Present: normal affect Assessment and Plan (1) Acute respiratory failure with hypoxia and hypercapnia Status: Acute Category: Medical Code(s): J96.01 - Acute respiratory failure with hypoxia; J96.02 - Acute respiratory failure with hypercapnia (2) Altered mental status Status: Acute Qualifiers: Altered mental status type: somnolence Qualified Code(s): R40.0 - Somnolence Category: Medical Code(s): R41.82 - Altered mental status, unspecified (3) Contusion of left hip Status: Acute Qualifiers: Encounter type: initial encounter Qualified Code(s): S70.02XA - Contusion of left hip, initial encounter Category: Medical Code(s): S70.02XA - Contusion of left hip, initial encounter (4) Fall Status: Acute Qualifiers: Encounter type: initial encounter Qualified Code(s): W19.XXXA - Unspecified fall, initial encounter Category: Medical Code(s): W19.XXXA - Unspecified fall, initial encounter (5) COPD (chronic obstructive pulmonary disease) Status: Acute Qualifiers: COPD type: unspecified COPD Qualified Code(s): J44.9 - Chronic obstructive pulmonary disease, unspecified Category: Medical Code(s): J44.9 - Chronic obstructive pulmonary disease, unspecified (6) Obesity Status: Acute Qualifiers: Obesity type: due to excess calories Obesity classification: adult class 1 (BMI 30 - 34.9) Serious obesity comorbidity presence: with serious comorbidity Body mass index: BMI 33.0-33.9 Qualified Code(s): E66.09 - Other obesity due to excess calories; Z68.33 - Body mass index [BMI] 33.0-33.9, adult Category: Medical Code(s): E66.9 - Obesity, unspecified (7) UTI (urinary tract infection) Status: Acute Qualifiers: Urinary tract infection type: site unspecified Hematuria presence: without hematuria Qualified Code(s): N39.0 - Urinary tract infection, site not specified Category: Medical Code(s): N39.0 - Urinary tract infection, site not specified
--- NOTE | 2021-04-02 09:18 | SW/DCPLANNER ---
This patient currently resides at [facility]. I will continue to follow up with Osmin/Lindsey once patient is medically stable for discharge.
--- NOTE | 2021-04-02 10:13 | HMH.PULMPN ---
Internal Medicine - PN: Subj *Date: 04/02/21 *Time: 10:13 Interval history: No acute respiratory events overnight. Exam - Constitutional Constitutional:: Present: no acute distress, comfortable - HENMT Exam HENMT: Present: normocephalic, atraumatic - Eye Exam Eyes:: Present: normal appearance both eyes and related structures - Neck Exam Neck:: Present: normal visual inspection - Respiratory Exam Respiratory:: Present: able to speak in complete sentences, no respiratory distress, crackles - Cardiovascular Exam Cardiac:: Present: S1, S2 - GI Exam GI:: Present: soft - Skin Exam Skin: Present: warm, no rash - Neurological Exam Neurological: Present: alert, awake, normal cognition - Extremities Exam Extremities: Present: no cyanosis, no clubbing Assessment and Plan (1) Acute respiratory failure with hypoxia and hypercapnia Status: Acute Category: Medical Code(s): J96.01 - Acute respiratory failure with hypoxia; J96.02 - Acute respiratory failure with hypercapnia (2) Altered mental status Status: Acute Qualifiers: Altered mental status type: somnolence Qualified Code(s): R40.0 - Somnolence Category: Medical Code(s): R41.82 - Altered mental status, unspecified (3) Contusion of left hip Status: Acute Qualifiers: Encounter type: initial encounter Qualified Code(s): S70.02XA - Contusion of left hip, initial encounter Category: Medical Code(s): S70.02XA - Contusion of left hip, initial encounter (4) Fall Status: Acute Qualifiers: Encounter type: initial encounter Qualified Code(s): W19.XXXA - Unspecified fall, initial encounter Category: Medical Code(s): W19.XXXA - Unspecified fall, initial encounter (5) COPD (chronic obstructive pulmonary disease) Status: Acute Qualifiers: COPD type: unspecified COPD Qualified Code(s): J44.9 - Chronic obstructive pulmonary disease, unspecified Category: Medical Code(s): J44.9 - Chronic obstructive pulmonary disease, unspecified (6) Obesity Status: Acute Qualifiers: Obesity type: due to excess calories Obesity classification: adult class 1 (BMI 30 - 34.9) Serious obesity comorbidity presence: with serious comorbidity Body mass index: BMI 33.0-33.9 Qualified Code(s): E66.09 - Other obesity due to excess calories; Z68.33 - Body mass index [BMI] 33.0-33.9, adult Category: Medical Code(s): E66.9 - Obesity, unspecified (7) UTI (urinary tract infection) Status: Acute Qualifiers: Urinary tract infection type: site unspecified Hematuria presence: without hematuria Qualified Code(s): N39.0 - Urinary tract infection, site not specified Category: Medical Code(s): N39.0 - Urinary tract infection, site not specified - Assessment and plan all Dx Assessment and Plan for all problems:: #Hypercarbic respiratory failure: #COPD exacerbation: Greater than [id number] smoking stay on Breo inhaler. Symptoms well controlled. ABG showed hypercarbic respiratory failure with a pH of 7.351 PCO2 61.1. Patient also was recently seen in the clinic for intermittent hyper nocturnal hypoxic episodes. on LTOT @ 2l. Attempted PFTs before however patient could not follow commands. 6-minute walk testing showed significant desaturations. Nocturnal oximetry testing performed on this admission though suboptimal as a sensor was off intermittently, patient showed initial desaturations which are likely secondary to artifact however given concerns for nocturnal desaturations and fall we will change patient nocturnal oxygen to 3 L and continue daytime oxygen therapy at 2 L until repeating the nocturnal oximetry testing and sleep study evaluation. Plan: -Wean oxygen to nasal cannula with O2 saturation goal of 88 to 92%. Continue long-term oxygen therapy 2 L during the daytime and 3 L while asleep -Continue levofloxacin for a total of 5 days -Prednisone 40 mg daily for a total of 5 days. -Repeat nocturnal o
--- NOTE | 2021-04-02 10:28 | HMH.PTEV ---
Physical Therapy Evaluation Rehab PT IP Evaluation Start: 04/02/21 09:14 Freq: ONCE Status: Active Protocol: Document 04/02/21 10:06 PHORNE (Rec: 04/02/21 10:28 PHORNE [id number]) Subjective/History History History Pt is 50 year old female admitted to [facility] s/p fall at [facility]. Pt reports living alone at [place] and no prior use of AD. Pt states she was independent before admittance to [facility]. Eval completed by DELIA Whitlock. Subjective Subjective Pt reports minimal pain in L hip this morning. Rehab PT IP Eval Objective Appearance Patient Behavior Appropriate,Cooperative Patient Orientation Place,Name Difficulty following instructions none Speech Pattern Clear,Appropriate,Coherent Ambulation Patient Able to Ambulate Yes Ambulation Observation IP General Gait Pattern Observation Wide Based Gait,Shuffling Step Ambulation Distance (feet) 25 Ambulation Assistive Device None Ambulation Ability Contact Guard/Hand Hold Balance Ability to Arise Able, uses arms to help Sitting Balance Steady, safe Standing Balance Steady, wide stance Dynamic Sitting Balance Ability Good Dynamic Standing Balance Ability Fair Transfers Chair Transfer Ability Contact Guard/Hand Hold Sit to Stand Chair Transfer Ability Contact Guard/Hand Hold ROM All Extremities PT ROM Status WFL MMT All Extremities PT MMT WFL Rehab PT IP prob,goals,plan Problems Date of Evaluation: 04/02/21 PT IP Problems Gait,Balance,Safety Rehab Potential Rehab Potential Good Equipment Needs Assistive Devices None / NA Plan PT Intervention Plan Gait,Balance,Safety, Therapeutic Exercise PT Plan Frequency BID Duration LOS Discharge Goals Bed Transfer Ability Contact Guard/Hand Hold Sit to Stand Chair Transfer Ability Contact Guard/Hand Hold Ambulation Assistive Device None Ambulation Distance (feet) 30 Discharge Plan PT Discharge Plan Pt would be safe to d/c home to [place] when medically stable. Pt is ambulating in her room at [facility]. G -code Required No Eval Complexity Eval Charge Codes 06553 - Moderate Complexity
--- NOTE | 2021-04-02 10:47 | HMH.OTEV ---
OT Inpatient Evaluation Rehab OT IP Evaluation Start: 04/02/21 09:14 Freq: ONCE Status: Complete Protocol: Document 04/02/21 10:39 ROLANDA (Rec: 04/02/21 10:46 ROLANDA [id number]) Rehab OT IP Assessment Subjective History *Admission Date: 03/31/21 *Chief complaint: sob this is a patient from [facility]-brought in by ambulance from [facility]. She reportedly fell and complained of left hip pain. Patient appears very drowsy here, speech is very soft and slurred and she is very difficult to understand. She does endorse left hip pain. Her only other pain is in her breast area where she had a breast biopsy today, she says she also got stitches in the area. Unable to obtain any other significant history from her. Nurse noted hypoxia with O2 sat 88-92% on RA on her arrival and is placed on nasal cannula oxygen. Review of her chart shows that she has seen Dr. Armenta, pulmonology, for intermittent hypoxia-pt with abn abg and was admitted to [facility] for treatment [facility] History I have reviewed the patient's past medical history: Yes Medical History: Reports:: Anxiety, Asthma, Chronic Obstructive Pulmonary Disease (COPD), Depression, Hyperlipidemia, Migraine. Patient lives in resident assistance living here in [place]. Patient verbalize being independent with ADLs and fx'l mobility with hx of falling. Patient may benefit from cane to assist to unsteady balance to prevent fall and injury risk. Subjective Instructed Patient on safety awareness to co
--- NOTE | 2021-04-02 17:31 | PC.NURSE ---
Pt alert to self and is tearful often. Pt has remained on RA most of shift and done well, with sats in mid 90's. CB in reach. Pt has had several loose BM's this shift and has voided since [place]lejo cath and been incontinent of urine. VSS. Mx continues.
[2021-04-02 19:47] LABS: Adenovirus F 40/41, stool Not Detected (NotDetected); Astrovirus Not Detected (NotDetected); Campylobacter Not Detected (NotDetected); Clostridium Difficile A/B, PCR Not Detected (NotDetected); Cryptosporidium Not Detected (NotDetected); Cyclospora Cayetanesis Not Detected (NotDetected); Entamoeba histolytica Not Detected (NotDetected); Enteroaggregative E coli Not Detected (NotDetected); Enteropathogenic E coli Not Detected (NotDetected); Enterotoxigenic E coli Not Detected (NotDetected); Giardia lamblia Not Detected (NotDetected); Norovirus Not Detected (NotDetected); Plesimonas Shigalloides, PCR Not Detected (NotDetected); Rotavirus A Not Detected (NotDetected); Salmonella, PCR Not Detected (NotDetected); Sapovirus Not Detected (NotDetected); Shiga-like toxin E coli Not Detected (NotDetected); Shigella Enterovasive E coli Not Detected (NotDetected); Vibrio Cholerae Not Detected (NotDetected); Vibrio, PCR Not Detected (NotDetected); Yersinia Entercolitica, PCR Not Detected (NotDetected)
[2021-04-03] VITALS: BP 118/69; PULSE 79; RESP 19; TEMP 36.4; O2SAT 92
--- NOTE | 2021-04-03 04:59 | PC.NURSE ---
A&OX4. TOLERATING RA WELL. PT HAS HAD MULTIPLE EPISODES OF DIARRHEA T/O SHIFT. THIS NURSE COLLECTED STOOL SAMPLE, WHICH CAME BACK NEGATIVE. PT HAS GOTTEN UP TO THE BEDSIDE COMMODE WITH STANDBY ASSIST. PT ALSO RECEIVED A SHOWER THIS SHIFT, TOLERATED WELL. PT IS ONLY ALERT TO SELF AND PLACE. HAS EPISODES OF FORGETFULNESS AND CONFUSION T/O SHIFT. PT BECOMES TEARY EYED OFTEN. PT HAS NOT SLEPT THIS SHIFT. PT HAS C/O NA AND LEG PAIN THUS FAR, TX PER SEP. ON REASSESSMENT, PT STATES SHE FEELS BETTER. PT HAS HAD A GOOD APPETITE THIS SHIFT. NO OTHER C/O, VSS WILL CONTINUE TO MONITOR.
[2021-04-03 05:40] VITALS: BMI 42.5
[2021-04-03 06:24] VITALS: PULSE 74; PULSE 76
[2021-04-03 07:17] LABS: Anion Gap 10.1 mEq/L (5-15); Blood Urea Nitrogen 12 mg/dl (7-17); Calcium 8.2 mg/dl (8.4-10.2); Carbon Dioxide 34 mmol/L (22.0-30.0); Chloride 101 mmol/L (98-107); Creatinine Clearance Estimated 89 mL/min (50-200); Estimated Glomerular Filt Rate 106 ml/min (>60); GFR (African American) 128 ML/MIN (>60); Glucose 76 mg/dl (74-100); Potassium 4.1 mmoL/L (3.5-5.1); Sodium 141 mmol/L (136-145)
[2021-04-03 07:20] LABS: Basophils % 0.5 % (0.1-2.0); Eosinophils # 0.1 K/mm3 (0.0-0.4); Eosinophils % 0.8 % (0.1-12.0); Hematocrit 40.7 % (37.0-47.0); Hemoglobin 12.9 g/dL (12.2-16.2); Lymphocytes # 3.6 K/mm3 (0.7-4.5); Lymphocytes % 41.1 % (10-50); Mean Corpuscular HGB Conc 31.7 g/dL (31.8-35.4); Mean Corpuscular Hemoglobin 29.4 pg (27.0-31.2); Mean Corpuscular Volume 92.8 fl (81-99); Mean Platelet Volume 9.1 fl (7.4-10.4); Monocytes # 0.9 K/mm3 (0.1-1.0); Monocytes % 9.9 % (1.7-9.3); Neutrophils # 4.2 K/mm3 (1.8-7.8); Neutrophils % 47.8 % (37.0-80.0); Platelet Count 188 K/mm3 (142-424); Red Blood Count 4.38 M/mm3 (4.20-5.40); Red Cell Distribution Width 13.5 % (11.5-17.5); White Blood Count 8.8 K/mm3 (4.8-10.8)
[2021-04-03 08:00] VITALS: BP 148/60; PULSE 86; RESP 17; TEMP 36.6; O2SAT 92; O2SAT 96
--- NOTE | 2021-04-03 08:44 | HMH.DCSUM ---
General - General Admission date:: 03/31/21 Discharge date: 04/03/21 HPI HPI: this is a patient from [facility]-brought in by ambulance from [facility]. She reportedly fell and complained of left hip pain. Patient appears very drowsy here, speech is very soft and slurred and she is very difficult to understand. She does endorse left hip pain. Her only other pain is in her breast area where she had a breast biopsy today, she says she also got stitches in the area. Unable to obtain any other significant history from her. Nurse noted hypoxia with O2 sat 88-92% on RA on her arrival and is placed on nasal cannula oxygen. Review of her chart shows that she has seen Dr. Armenta, pulmonology, for intermittent hypoxia-pt with abn abg and [facility] Hospital Course Hospital Course: Laboratory Tests 03/31/21 03/31/21 03/31/21 17:33 17:33 17:45 WBC 7.6 RBC 4.72 Hgb 13.8 Hct 44.0 MCV 93.3 MCH 29.3 MCHC 31.4 L RDW 13.6 Plt Count 167 MPV 9.0 Neut % (Auto) 60.6 Lymph % (Auto) 29.2 [place] % (Auto) 8.2 Eos % (Auto) 1.5 Baso % (Auto) 0.5 Neut # (Auto) 4.6 Lymph # (Auto) 2.2 [place] # (Auto) 0.6 Eos # (Auto) 0.1 Baso # (Auto) 0.0 Specimen Source R/r O2 % 2 ABG pH 7.32 L ABG pCO2 57.6 H ABG pO2 77.4 L ABG HCO3 29.1 H ABG Total CO2 30.9 H ABG O2 Saturation 94 ABG Base Excess 3.1 H Bowen Test Vent Rate Tidal Volume Sodium 142 Potassium 3.5 Chloride 102 Carbon Dioxide 33 H Anion Gap 10.5 BUN 10 Creatinine 0.60 Estimated Creat Clear 177 Estimated GFR 106 Est GFR ( Amer) 128 Glucose 98 Calcium 8.3 L Total Bilirubin 0.2 AST 69 H ALT 28 Alkaline Phosphatase 91 Ammonia Troponin I < 0.01 Total Protein 6.8 Albumin 3.4 L Globulin 3.4 H Albumin/Globulin Ratio 1.0 L Urine Color Urine Appearance Urine pH Ur Specific [place] Urine Protein Urine Glucose (UA) Urine Ketones Urine Blood Urine Nitrate Urine Bilirubin Urine Urobilinogen Ur Leukocyte Esterase Urine RBC Urine WBC Ur Squamous Epith Cells Urine Bacteria Stl Aeromonas (PCR) Stl C. cayetanensis PCR Stool Rotavirus (PCR) Stl Adenov F 40/ PCR Stool Astrovirus (PCR) Stool Campylobacter PCR Stl C.difficile Tox PCR Stool Cryptosporidium PCR Stl E.coli Shiga Tox PCR Stool E coli O157 PCR Stl Enterotoxigenic E PCR Stool EPEC (PCR) Stool EAEC (PCR) Stl E. histolytica PCR Stool Giardia Lamblia PCR Stool Salmonella PCR Stool Sapovirus (PCR) Stl P. shigelloides PCR Stl Shigella/EIEC PCR St Y.enterocolitica PCR Stool Vibrio (PCR) Stl Vibrio cholerae PCR Stl Norovirus GI/GII PCR Total Valproic Acid SARS-CoV-2 (PCR) Influenza A Untype (PCR) Influenza Type B (PCR) 03/31/21 03/31/21 03/31/21 18:32 18:35 20:30 WBC RBC Hgb Hct MCV MCH MCHC RDW Plt Count MPV Neut % (Auto) Lymph % (Auto) [place] % (Auto) Eos % (Auto) Baso % (Auto) Neut # (Auto) Lymph # (Auto) [place] # (Auto) Eos # (Auto) Baso # (Auto) Specimen Source O2 % ABG pH ABG pCO2 ABG pO2 ABG HCO3 ABG Total CO2 ABG O2 Saturation ABG Base Excess Bowen Test Vent Rate Tidal Volume Sodium Potassium Chloride Carbon Dioxide Anion Gap BUN Creatinine Estimated Creat Clear Estimated GFR Est GFR ( Amer) Glucose Calcium Total Bilirubin AST ALT Alkaline Phosphatase Ammonia Troponin I < 0.01 Total Protein Albumin Globulin Albumin/Globulin Ratio Urine Color Dk yellow Urine Appearance Cloudy Urine pH 6.0 Ur Specific [place] >= 1.030 Urine Protein 1+ Urine Glucose (
--- NOTE | 2021-04-03 09:23 | SW/DCPLANNER ---
Addendum entered by Daxa Goldsmith 04/03/21 10:04: [facility] IS ON ITS WAY TO TRANSPORT PATIENT BACK TO [facility]... Original Note: PATIENT IS DISCHARGING TO [facility] TODAY, I CALLED AND SPOKE WITH RENETTA AND SHE SAID SHE NEEDS TO BE TRANSPORTED BY [facility]...ONCE PATIENT IS READY TO LEAVE I WILL CONTACT TRANSPORT TO TAKE HER BACK...
--- NOTE | 2021-04-03 11:54 | HMH.PULMPN ---
Internal Medicine - PN: Subj *Date: 04/03/21 *Time: 11:55 Interval history: No acute respiratory events overnight. Patient continued to improve, this morning on room air Exam - Constitutional Constitutional:: Present: no acute distress, comfortable - HENMT Exam HENMT: Present: normocephalic, atraumatic - Eye Exam Eyes:: Present: normal appearance both eyes and related structures - Respiratory Exam Respiratory:: Present: able to speak in complete sentences, no respiratory distress. Absent: crackles, wheezing - Cardiovascular Exam Cardiac:: Present: S1, S2 - GI Exam GI:: Present: soft - Skin Exam Skin: Present: warm, no rash, dry - Neurological Exam Neurological: Present: alert, awake - Extremities Exam Extremities: Present: no cyanosis, no clubbing Assessment and Plan (1) Acute respiratory failure with hypoxia and hypercapnia Status: Acute Category: Medical Code(s): J96.01 - Acute respiratory failure with hypoxia; J96.02 - Acute respiratory failure with hypercapnia (2) Altered mental status Status: Acute Qualifiers: Altered mental status type: somnolence Qualified Code(s): R40.0 - Somnolence Category: Medical Code(s): R41.82 - Altered mental status, unspecified (3) Contusion of left hip Status: Acute Qualifiers: Encounter type: initial encounter Qualified Code(s): S70.02XA - Contusion of left hip, initial encounter Category: Medical Code(s): S70.02XA - Contusion of left hip, initial encounter (4) Fall Status: Acute Qualifiers: Encounter type: initial encounter Qualified Code(s): W19.XXXA - Unspecified fall, initial encounter Category: Medical Code(s): W19.XXXA - Unspecified fall, initial encounter (5) COPD (chronic obstructive pulmonary disease) Status: Acute Qualifiers: COPD type: unspecified COPD Qualified Code(s): J44.9 - Chronic obstructive pulmonary disease, unspecified Category: Medical Code(s): J44.9 - Chronic obstructive pulmonary disease, unspecified (6) Obesity Status: Acute Qualifiers: Obesity type: due to excess calories Obesity classification: adult class 1 (BMI 30 - 34.9) Serious obesity comorbidity presence: with serious comorbidity Body mass index: BMI 33.0-33.9 Qualified Code(s): E66.09 - Other obesity due to excess calories; Z68.33 - Body mass index [BMI] 33.0-33.9, adult Category: Medical Code(s): E66.9 - Obesity, unspecified (7) UTI (urinary tract infection) Status: Acute Qualifiers: Urinary tract infection type: site unspecified Hematuria presence: without hematuria Qualified Code(s): N39.0 - Urinary tract infection, site not specified Category: Medical Code(s): N39.0 - Urinary tract infection, site not specified (8) E-coli UTI Status: Acute Category: Medical Code(s): N39.0 - Urinary tract infection, site not specified; B96.20 - Unspecified Escherichia coli [E. coli] as the cause of diseases classified elsewhere - Assessment and plan all Dx Assessment and Plan for all problems:: #Hypercarbic respiratory failure: #COPD exacerbation: Greater than 11-[id number] smoking stay on Breo inhaler. Symptoms well controlled. ABG showed hypercarbic respiratory failure with a pH of 7.351 PCO2 61.1. Patient also was recently seen in the clinic for intermittent hyper nocturnal hypoxic episodes. Attempted PFTs before however patient could not follow commands. 6-minute walk testing showed significant desaturations. Nocturnal oximetry testing performed on this admission though suboptimal as a sensor was off intermittently, patient showed initial desaturations which are likely secondary to artifact however given concerns for nocturnal desaturations. Patient is morning does not appear to be in respiratory distress. On room air saturating 94 to 96%. Plan: -Wean oxygen to nasal cannula with O2 saturation goal of 88 to 92%. -Continue daytime oxygen therapy at 2 L with exertion and no
== END 2021-04-03 11:35 | disposition home or self-care (01) | DRG 189 ==
LOC: ER 19:06 → 2ND 19:55
PROVIDERS: Nurse Practitioner Family; Admitting Provider Emergency Medicine; Emergency Provider Emergency Medicine; PCP Emergency Medicine; Visit Provider Emergency Medicine
DX: J96.01 Acute respiratory failure with hypoxia (principal); N39.0 Urinary tract infection, site not specified; J44.1 Chronic obstructive pulmonary disease with (acute) exacerbation; Z68.41 Body mass index [BMI] 40.0-44.9, adult; J96.02 Acute respiratory failure with hypercapnia; Z91.018 Allergy to other foods; F17.210 Nicotine dependence, cigarettes, uncomplicated; F41.9 Anxiety disorder, unspecified; J45.909 Unspecified asthma, uncomplicated; J44.9 Chronic obstructive pulmonary disease, unspecified; F31.9 Bipolar disorder, unspecified; E78.5 Hyperlipidemia, unspecified; G43.909 Migraine, unspecified, not intractable, without status migrainosus; E66.9 Obesity, unspecified; W19.XXXA Unspecified fall, initial encounter; S70.02XA Contusion of left hip, initial encounter; B96.20 Unspecified Escherichia coli [E. coli] as the cause of diseases classified elsewhere
CPT/HCPCS: 19081; 36415; 70450; 71045; 72125; 73502; 76098; 77065; 80048; 80053; 80164; 81001; 82140; 82803; 84484; 85025; 87086; 87088; 87186; 87507; 93005; 93306; 94640; 94760; 94761; 94762; 96365; 97116; 97162; 97165; 97530; 97535; 99284; J2310; J2405; U0003

== ENCOUNTER 2021-07-03 15:57 | Emergency (ER) | payer MEDICAID, SELFPAY ==
[2021-07-03] VITALS (7 sets, daily range): BP systolic 124–138; BP diastolic 75–92; PULSE 63–100; RESP 18; TEMP 37.1–37.4; O2SAT 91–95; BMI 42.0
--- NOTE | 2021-07-03 16:10 | XR_ITS ---
PROCEDURE INFORMATION: Exam: XR Chest Exam date and time: 07/03/2021 4:10 PM Age: 50 years old Clinical indication: Cough TECHNIQUE: Imaging protocol: XR of the chest. Views: 1 view. COMPARISON: CR XR CHEST PORTABLE 04/01/2021 8:13 AM FINDINGS: Lungs: Bibasilar opacities partially silhouette the diaphragm are favored to represent combination of atelectasis/pleural effusion/consolidation. Pleural spaces: See Lungs finding. Heart/Mediastinum: Unremarkable. No cardiomegaly. Bones/joints: Unremarkable. IMPRESSION: Bibasilar opacities partially silhouette the diaphragm are favored to represent combination of atelectasis/pleural effusion/consolidation.
--- NOTE | 2021-07-03 17:21 | HMH.EDGENADL ---
ED Disposition Clinical Impression: COPD (chronic obstructive pulmonary disease) Qualifiers: COPD type: COPD with acute exacerbation Qualified Code(s): J44.1 - Chronic obstructive pulmonary disease with (acute) exacerbation Community acquired pneumonia Qualifiers: Laterality: unspecified laterality Qualified Code(s): J18.9 - Pneumonia, unspecified organism Disposition: Home, Self-Care Condition on Discharge: Good Instructions: Pneumonia-Adult Prescriptions: Doxycycline Monohydrate [Doxycycline [place] 100mg Tab] 100 mg PO Q12 #20 tab [id number] methylPREDNISolone [Medrol 4mg tab] 4 mg PO DIRECTED #21 tab Transmission Status: Pending to [id number] Referrals: Jared Pak MD [Primary Care Provider] - - Critical Care Critical Care Time: No Attestation: On 07/03/21, the high probability of a clinically significant, sudden or life threatening deterioration of the following system(s) required my full and direct attention, intervention and personal management. The time I documented below is in addition to time spent performing reported procedures but includes the following listed in this critical care notation. Medical Decision Making - Medical Records Medical records reviewed: Yes: I reviewed the patient's medical records. - Vlad Inquiry Pt receiving controlled substance: No Vital Signs: 07/03/21 15:57 Temperature 99.3 F Temperature Source Oral Pulse Rate [Right Radial] 100 H Respiratory Rate 18 Blood Pressure [Right Arm] 125/76 Blood Pressure Mean [Right Arm] 92 Blood Pressure Source [Right Arm] Automatic Cuff Blood Pressure Position [Right Arm] Sitting 02 Sat by Pulse Oximetry 93 L Oxygen Delivery Method Nasal Cannula Oxygen Flow Rate (LPM) 2 - Lab Data Lab Results 07/03/21 17:11: WBC 12.8 H, RBC 4.28, Hgb 12.7, Hct 39.4, MCV 92.2, MCH 29.6, MCHC 32.1, RDW 14.7, Plt Count 196, MPV 8.9, Neut % (Auto) 80.7 H, Lymph % (Auto) 11.7, [place] % (Auto) 6.0, Eos % (Auto) 0.9, Baso % (Auto) 0.6, Neut # (Auto) 10.3 H, Lymph # (Auto) 1.5, [place] # (Auto) 0.8, Eos # (Auto) 0.1, Baso # (Auto) 0.1 07/03/21 17:11: Sodium 140, Potassium 3.9, Chloride 102, Carbon Dioxide 32 H, Anion Gap 9.9, BUN 16, Creatinine 0.60, Estimated Creat Clear 89, Estimated GFR 106, Est GFR ( Amer) 128, Glucose 119 H, Calcium 8.5, Total Bilirubin 0.5, AST 50 H, ALT 24, Alkaline Phosphatase 113, Troponin I < 0.01, Total Protein 6.6, Albumin 3.4 L, Globulin 3.2, Albumin/Globulin Ratio 1.1 07/03/21 17:11: NT-Pro-B Natriuret Pep 530 H Result diagrams: 07/03/21 17:11 07/03/21 17:11 Orders (Tests/Meds): ED MEDICATIONS Discontinued Medications Generic Name Dose Route Start Last Admin Trade Name Freq PRN Reason Stop Dose Admin Albuterol/Ipratropium 3 ml 07/03/21 17:25 Ipratropium/Albuterol 3 Ml Neb IH 07/03/21 17:26 ONCE ONE - Radiology Data #1 Image(s): Chest Image Reviewed: Yes I reviewed the patient's radiology results, Yes I reviewed the patient's radiology image, Yes I have reviewed radiologist's interpretation IMPRESSION: Bibasilar opacities partially silhouette the diaphragm are favored to represent combination of atelectasis/pleural effusion/consolidation. - Reevaluation(s) Time: 18:37 Reevaluation #1: On reevaluation, patient is feeling much better. Chest x-ray findings are concerning for possible pneumonia. I did want to obtain Covid swab patient, however she is declining at this time. Patient be discharged with short course of steroids as well as antibiotics. Needs follow-up with PCP in 48 hours. Given strict return precautions. Verbalized understanding. Medical Decision Narrative: 50-year-old female presented to the emergency department with some cough. Patient also history of COPD. She has some mild wheezing on examination. Do believe her symptoms are consistent with bronchitis, pneumonia or COPD exacerbation.
[2021-07-03 17:28] LABS: Basophils # 0.1 K/mm3 (0-0.2); Basophils % 0.6 % (0.1-2.0); Eosinophils # 0.1 K/mm3 (0.0-0.4); Eosinophils % 0.9 % (0.1-12.0); Hematocrit 39.4 % (37.0-47.0); Hemoglobin 12.7 g/dL (12.2-16.2); Lymphocytes # 1.5 K/mm3 (0.7-4.5); Lymphocytes % 11.7 % (10-50); Mean Corpuscular HGB Conc 32.1 g/dL (31.8-35.4); Mean Corpuscular Hemoglobin 29.6 pg (27.0-31.2); Mean Corpuscular Volume 92.2 fl (81-99); Mean Platelet Volume 8.9 fl (7.4-10.4); Monocytes # 0.8 K/mm3 (0.1-1.0); Neutrophils # 10.3 K/mm3 (1.8-7.8); Neutrophils % 80.7 % (37.0-80.0); Platelet Count 196 K/mm3 (142-424); Red Blood Count 4.28 M/mm3 (4.20-5.40); Red Cell Distribution Width 14.7 % (11.5-17.5); White Blood Count 12.8 K/mm3 (4.8-10.8)
[2021-07-03 17:33] LABS: Chloride 102 mmol/L (98-107); Potassium 3.9 mmoL/L (3.5-5.1); Sodium 140 mmol/L (136-145)
[2021-07-03 17:36] LABS: Alanine Aminotransferase 24 U/L (12-78); Albumin Level 3.4 g/dl (3.5-5.0); Albumin/Globulin Ratio 1.1 (1.1-1.8); Alkaline Phosphatase 113 U/L (38-126); Anion Gap 9.9 mEq/L (5-15); Aspartate Amino Transferase 50 U/L (14-36); Bilirubin,Total 0.5 mg/dl (0.2-1.3); Blood Urea Nitrogen 16 mg/dl (7-17); Carbon Dioxide 32 mmol/L (22.0-30.0); Creatinine Clearance Estimated 89 mL/min (50-200); Estimated Glomerular Filt Rate 106 ml/min (>60); GFR (African American) 128 ML/MIN (>60); Globulin 3.2 g/dL (1.3-3.2); Total Protein,Serum 6.6 g/dl (6.3-8.2)
[2021-07-03 17:37] LABS: Calcium 8.5 mg/dl (8.4-10.2); Glucose 119 mg/dl (74-100)
[2021-07-03 17:50] LABS: NT Pro Brain Natriuretic Pep. 530 pg/mL (0-125)
[2021-07-03 17:58] LABS: Troponin I < 0.01 ng/ml (0.00-0.034)
--- NOTE | 2021-07-03 18:45 | PC.NURSE ---
called juan to notified that pt is ready for discharge
== END 2021-07-03 18:57 | disposition home or self-care (01) ==
PROVIDERS: Emergency Provider Emergency Medicine; PCP Emergency Medicine
DX: J44.1 Chronic obstructive pulmonary disease with (acute) exacerbation (principal); J18.9 Pneumonia, unspecified organism; F41.8 Other specified anxiety disorders; E78.5 Hyperlipidemia, unspecified; G43.709 Chronic migraine without aura, not intractable, without status migrainosus; F17.210 Nicotine dependence, cigarettes, uncomplicated; Z79.899 Other long term (current) drug therapy
CPT/HCPCS: 71045; 80053; 83880; 84484; 85025; 99283

== ENCOUNTER 2021-08-08 09:07 | Inpatient (IN) | payer MEDICAID, SELFPAY ==
[2021-08-08] VITALS (16 sets, daily range): BP systolic 107–156; BP diastolic 58–94; PULSE 75–86; RESP 1–21; TEMP 36.4–37.2; O2SAT 76–98; BMI 37.8; BMI 40.8
--- NOTE | 2021-08-08 09:10 | HMH.EDGENADL ---
ED Disposition Clinical Impression: Pleural effusion, right Respiratory failure with hypoxia Qualifiers: Chronicity: acute Qualified Code(s): J96.01 - Acute respiratory failure with hypoxia Disposition: Admitted As Inpatient Condition on Discharge: Fair - Critical Care Critical Care Time: Yes Attestation: On , the high probability of a clinically significant, sudden or life threatening deterioration of the following system(s) required my full and direct attention, intervention and personal management. The time I documented below is in addition to time spent performing reported procedures but includes the following listed in this critical care notation. Total Critical Care Time: 30 Vital system(s) involved:: Central Nervous System, Respiratory Failure My critical care processes included: Assessment & monitoring of V/S, Initial and Re-exams, Data Review/Interpretation, Coordinating Care, Medication Orders and management, Documentation Medical Decision Making - Medical Records Medical records reviewed: Yes: I reviewed the patient's medical records. - Vlad Inquiry Pt receiving controlled substance: No Vital Signs: 08/08/21 09:08 08/08/21 09:52 08/08/21 10:20 Temperature 98.5 F Temperature Source Oral Pulse Rate 84 84 Pulse Rate [Left Radial] 86 Respiratory Rate 21 18 18 Blood Pressure 146/75 H 135/72 Blood Pressure [Right Arm] 107/81 L Blood Pressure Mean 98 95 Blood Pressure Mean [Right Arm] 89 Blood Pressure Source [Right Arm] Automatic Cuff Blood Pressure Position [Right Arm] Sitting 02 Sat by Pulse Oximetry 76 L 98 95 Oxygen Delivery Method Room Air Nasal Cannula Nasal Cannula Oxygen Flow Rate (LPM) 3 2 08/08/21 10:30 08/08/21 11:01 08/08/21 11:31 Temperature Temperature Source Pulse Rate 81 79 79 Pulse Rate [Left Radial] Respiratory Rate 18 18 20 Blood Pressure 132/75 119/67 156/94 H Blood Pressure [Right Arm] Blood Pressure Mean 94 88 103 Blood Pressure Mean [Right Arm] Blood Pressure Source [Right Arm] Blood Pressure Position [Right Arm] 02 Sat by Pulse Oximetry 96 93 L 95 Oxygen Delivery Method Nasal Cannula Oxygen Flow Rate (LPM) 3 08/08/21 12:30 08/08/21 12:42 08/08/21 13:01 Temperature Temperature Source Pulse Rate 86 82 Pulse Rate [Left Radial] Respiratory Rate 18 18 Blood Pressure 133/81 128/88 Blood Pressure [Right Arm] Blood Pressure Mean 112 101 Blood Pressure Mean [Right Arm] Blood Pressure Source [Right Arm] Blood Pressure Position [Right Arm] 02 Sat by Pulse Oximetry 98 98 Oxygen Delivery Method Oxygen Flow Rate (LPM) 50 08/08/21 14:21 Temperature 99 F Temperature Source Oral Pulse Rate 85 Pulse Rate [Left Radial] Respiratory Rate 20 Blood Pressure 121/74 Blood Pressure [Right Arm] Blood Pressure Mean Blood Pressure Mean [Right Arm] Blood Pressure Source [Right Arm] Blood Pressure Position [Right Arm] 02 Sat by Pulse Oximetry Oxygen Delivery Method BiPAP Oxygen Flow Rate (LPM) - Lab Data Lab Results 08/08/21 09:12: VBG pH 7.24 L, VBG pCO2 80.9 H, VBG pO2 54.3 H, VBG HCO3 33.5 H, VBG Total CO2 36.0 H, VBG O2 Saturation 85.0 H, VBG Base Excess 6.0 H 08/08/21 09:24: Urine Color [place], Urine Appearance Sl cloudy, Urine pH 6.0, Ur Specific [place] >= 1.030, Urine Protein 1+, Urine Glucose (UA) Negative, Urine Ketones 1+, Urine Blood 3+, Urine Nitrate Negative, Urine Bilirubin 2+ A, Urine Urobilinogen 4.0, Ur Leukocyte Esterase Negative, Urine RBC 10-20, Urine WBC 3-5, Ur Squamous Epith Cells None, Urine Bacteria Trace 08/08/21 09:24: WBC 6.8, RBC 4.93, Hgb 14.4, Hct 48.9 H, MCV 99.2 H, MCH 29.3, MCHC 29.5 L, RDW 15.2, Plt Count 172, MPV 9.2, Neut % (Auto) 68.1, Lymph % (Auto) 20.7, [place] % (Auto) 6.7, Eos % (Auto) 3.2, Baso % (Auto) 1.3, Neut # (Auto) 4.7, Lymph # (Auto) 1.4, [place] # (Auto) 0.5, Eos # (Auto) 0.2, Baso # (Auto) 0.1 08/08/21 09:24: Sodium 143, Potassium 3.4 L, Chloride 10
--- NOTE | 2021-08-08 09:12 | XR_ITS ---
PROCEDURE INFORMATION: Exam: XR Chest Exam date and time: 08/08/2021 9:12 AM Age: 50 years old Clinical indication: Shortness of breath; Additional info: Hypoxia, SOB TECHNIQUE: Imaging protocol: XR of the chest. Views: 1 view. COMPARISON: CR XR CHEST PORTABLE 07/03/2021 4:40 PM FINDINGS: Lungs: Marked interval worsening in right-sided airspace disease. Emphysematous change and interstitial prominence. Pleural spaces: Newly developed right pleural effusion. Heart/Mediastinum: Cardiomegaly and prominent epicardial fat. Bones/joints: Degenerative change. IMPRESSION: 1. Marked interval worsening in right-sided airspace disease. 2. Newly developed right pleural effusion.
--- NOTE | 2021-08-08 09:30 | ECG_ITS ---
APPROVED REPORT Exam: Resting ECG HR:84 bpm ECG Measurements Heart Rate 84 AXES QRSd 90 QRS 83 QT 360 T 259 QTc 425 Conclusion Accelerated Junctional rhythm ST & T wave abnormality, consider anterolateral ischemia Abnormal ECG Electronically signed by : Praful Kaufman MD 08/09/2021 09:00:34
--- NOTE | 2021-08-08 09:51 | PC.NURSE ---
called RT for vbg collection
[2021-08-08 10:06] LABS: Coronavirus 19, PCR Not Detected (NotDetected); Influenza A, PCR Not Detected (NotDetected); Influenza B, PCR Not Detected (NotDetected); Microscopic, Urine URINE MICROSCOPIC (MICROSCOPIC)
[2021-08-08 10:10] LABS: Basophils # 0.1 K/mm3 (0-0.2); Basophils % 1.3 % (0.1-2.0); Eosinophils # 0.2 K/mm3 (0.0-0.4); Eosinophils % 3.2 % (0.1-12.0); Hematocrit 48.9 % (37.0-47.0); Hemoglobin 14.4 g/dL (12.2-16.2); Lymphocytes # 1.4 K/mm3 (0.7-4.5); Lymphocytes % 20.7 % (10-50); Mean Corpuscular HGB Conc 29.5 g/dL (31.8-35.4); Mean Corpuscular Hemoglobin 29.3 pg (27.0-31.2); Mean Corpuscular Volume 99.2 fl (81-99); Mean Platelet Volume 9.2 fl (7.4-10.4); Monocytes # 0.5 K/mm3 (0.1-1.0); Monocytes % 6.7 % (1.7-9.3); Neutrophils # 4.7 K/mm3 (1.8-7.8); Neutrophils % 68.1 % (37.0-80.0); Platelet Count 172 K/mm3 (142-424); Red Blood Count 4.93 M/mm3 (4.20-5.40); Red Cell Distribution Width 15.2 % (11.5-17.5); White Blood Count 6.8 K/mm3 (4.8-10.8)
[2021-08-08 10:17] LABS: Alanine Aminotransferase 19 U/L (12-78); Albumin Level 3.5 g/dl (3.5-5.0); Alkaline Phosphatase 116 U/L (38-126); Anion Gap 8.4 mEq/L (5-15); Aspartate Amino Transferase 51 U/L (14-36); Bilirubin,Total 0.6 mg/dl (0.2-1.3); Blood Urea Nitrogen 19 mg/dl (7-17); Calcium 8.7 mg/dl (8.4-10.2); Carbon Dioxide 37 mmol/L (22.0-30.0); Chloride 101 mmol/L (98-107); Creatinine Clearance Estimated 138 mL/min (50-200); Estimated Glomerular Filt Rate 89 ml/min (>60); GFR (African American) 107 ML/MIN (>60); Globulin 3.4 g/dL (1.3-3.2); Glucose 85 mg/dl (74-100); Lipase 21 U/L (23-300); Potassium 3.4 mmoL/L (3.5-5.1); Sodium 143 mmol/L (136-145); Total Protein,Serum 6.9 g/dl (6.3-8.2)
[2021-08-08 10:25] LABS: VBG HCO3 33.5 mmol/L (23-30); VBG PH 7.24 mmol/L (7.31-7.41); VBG PO2 54.3 mmol/L (28-40)
[2021-08-08 10:26] LABS: NT Pro Brain Natriuretic Pep. 290 pg/mL (0-125)
[2021-08-08 10:27] LABS: VBG PCO2 80.9 mmol/L (35-51)
[2021-08-08 10:27] LABS: Appearance,Urine SL CLOUDY (Clear); Blood, Urine 3+ (Negative); Color,Urine ORANGE (Yellow); Glucose,Urine (UA) Negative (Negative); Ketones,Urine 1+ (Negative); Leukocyte Esterase,Urine Negative (Negative); Nitrate,Urine Negative (Negative); Protein,Urine 1+ (Negative); Specific Gravity, Urine >= 1.030 (1.005-1.030)
[2021-08-08 10:29] LABS: Troponin I < 0.01 ng/ml (0.00-0.034)
[2021-08-08 10:48] LABS: Bacteria,Urine Trace /lpf; Bilirubin,Urine 2+ (Negative)
--- NOTE | 2021-08-08 11:00 | CT_ITS ---
PROCEDURE INFORMATION: Exam: CT Chest Without Contrast; Diagnostic Exam date and time: 08/08/2021 11:00 AM Age: 50 years old Clinical indication: Cough; Additional info: Effusion, cough TECHNIQUE: Imaging protocol: Diagnostic computed tomography of the chest without contrast. Radiation optimization: All CT scans at this facility use at least one of these dose optimization techniques: automated exposure control; mA and/or kV adjustment per patient size (includes targeted exams where dose is matched to clinical indication); or iterative reconstruction. COMPARISON: CR XR CHEST PORTABLE 08/08/2021 9:27 AM FINDINGS: Lungs: Consolidation in the right lower lobe and right middle lobe may represent atelectasis or pneumonia.. Pleural spaces: Large right pleural effusion. . Smaller left pleural effusion Heart: Unremarkable. No cardiomegaly. No pericardial effusion. Aorta: Unremarkable. No aortic aneurysm. Lymph nodes: Unremarkable. No enlarged lymph nodes. Bones/joints: Unremarkable. No acute fracture. Soft tissues: Unremarkable. IMPRESSION: 1. Large right pleural effusion. 2. Consolidation in the right lower lobe and right middle lobe may represent atelectasis or pneumonia..
--- NOTE | 2021-08-08 11:14 | PC.NURSE ---
ATTEMPTED PT ON RA PER MD SATS DROPPED TO 78% , PT PLACED BACK ON 3 LPM O2 SATS 93% PT STILL SLEEPING , MD ORDERED BIPAP FOR PT
[2021-08-08 13:00] LABS: Troponin I < 0.01 ng/ml (0.00-0.034)
[2021-08-09] VITALS (8 sets, daily range): BP systolic 111–137; BP diastolic 69–83; PULSE 74–88; RESP 16–19; TEMP 36.5–36.6; O2SAT 90–98; BMI 41.2
--- NOTE | 2021-08-09 01:48 | PC.NURSE ---
0100 report given to [facility] at this time
--- NOTE | 2021-08-09 06:12 | PC.NURSE ---
Pt a + o x1 t/o shift. Pt tolerating the Bipap well with sats >90%. No complaints have been voiced to staff thus far. Pt has tried to stand up out of bed/chair without assistance multiple times. Pt helped back into bed/chair and encouragement to use call light has been given. Bed alarm on for safety.
--- NOTE | 2021-08-09 07:00 | XR_ITS ---
PROCEDURE INFORMATION: Exam: XR Chest Exam date and time: 08/09/2021 7:00 AM Age: 50 years old Clinical indication: Shortness of breath; Additional info: Effusion TECHNIQUE: Imaging protocol: XR of the chest. Views: 1 view. COMPARISON: CT CHEST WO CON 08/08/2021 11:57 AM FINDINGS: Lungs: Patchy diffuse right-sided airspace disease is again noted not significantly changed.. Pleural spaces: Large right-sided pleural effusion is stable. Heart/Mediastinum: Unremarkable. No cardiomegaly. Bones/joints: Unremarkable. IMPRESSION: Stable right-sided airspace disease and large effusion.
[2021-08-09 08:14] LABS: Basophils # 0.1 K/mm3 (0-0.2); Basophils % 1.1 % (0.1-2.0); Eosinophils # 0.1 K/mm3 (0.0-0.4); Eosinophils % 1.4 % (0.1-12.0); Hematocrit 44.5 % (37.0-47.0); Hemoglobin 13.7 g/dL (12.2-16.2); Lymphocytes # 1.8 K/mm3 (0.7-4.5); Lymphocytes % 25.7 % (10-50); Mean Corpuscular HGB Conc 30.9 g/dL (31.8-35.4); Mean Corpuscular Hemoglobin 29.5 pg (27.0-31.2); Mean Corpuscular Volume 95.5 fl (81-99); Mean Platelet Volume 9.1 fl (7.4-10.4); Monocytes # 0.7 K/mm3 (0.1-1.0); Neutrophils # 4.3 K/mm3 (1.8-7.8); Neutrophils % 61.8 % (37.0-80.0); Platelet Count 176 K/mm3 (142-424); Red Blood Count 4.66 M/mm3 (4.20-5.40); White Blood Count 6.9 K/mm3 (4.8-10.8)
[2021-08-09 08:26] LABS: Blood Urea Nitrogen 25 mg/dl (7-17); Calcium 8.5 mg/dl (8.4-10.2); Chloride 99 mmol/L (98-107); Creatinine Clearance Estimated 211 mL/min (50-200); Estimated Glomerular Filt Rate 131 ml/min (>60); GFR (African American) 158 ML/MIN (>60); Glucose 93 mg/dl (74-100); Potassium 3.4 mmoL/L (3.5-5.1); Sodium 141 mmol/L (136-145)
[2021-08-09 08:33] LABS: Anion Gap 8.4 mEq/L (5-15); Carbon Dioxide 37 mmol/L (22.0-30.0)
--- NOTE | 2021-08-09 10:02 | HMH.HP ---
*Admission Date: 08/08/21 *Chief complaint: sob *History of present illness: this patient was sent from local [facility] [place] [facility]- for sob and change in mental status- presenting to the emergency department after episode of confusion. This morning, she woke up to go to the restroom and staff saw her try to urinate on the floor. She does not remember this episode. Painful urination. Has had occasional lower abdominal pain. Denies nausea or vomiting. No recent illness, fevers, chills, cough, shortness of breath. When EMS arrived fingerstick blood glucose was 117. She was conversational, but tearful. Found to have hypoxia with O2 sat of 80% on room air. No history of respiratory issues like COPD, sleep apnea. Does not use home oxygen. Patient resides at [place]. She has a history of dementia, bipolar disorder. On arrival she denies headache, confusion, chest pain. No numbness, weakness, tingling in her arms or legs. No vision changes. [facility] History I have reviewed the patient's past medical history: Yes Medical History: Reports:: Anxiety, Asthma, Chronic Obstructive Pulmonary Disease (COPD), Depression, Hyperlipidemia, Hypertension, Migraine Denies:: Diabetes Mellitus Type 1, Diabetes Mellitus Type 2 *Have you ever received a pneumonia vaccine?: Yes *Have you received a flu vaccine this season?: Yes Other Medical History: Reports: Other Other Surgeries: Yes: Other - *Social History Smoking Status: Current every day smoker Tobacco Type: cigarettes # Packs/Day (cigarettes): 1 #Yrs smoked (if former smoker): 20 Alcohol Intake: never Substance Use Type: denies use *Occupational Status:: disabled Housing: assisted living facility Household Members: caregiver *Travel in the last 8 weeks: None - Psychiatric History Pschychiatric History:: Reports:: Anxiety, Depression Family Hx:: Unable to obtain Review of Systems - Review of Systems Review of systems:: pertinent systems reviewed and negative unless documented below - Constitutional Denies fever(s) - Eyes Denies change in vision - ENT Denies sore throat - *Cardiovascular Reports shortness of breath, Denies chest pain at rest - *Respiratory Reports cough, Reports shortness of breath, Denies coughing up blood - *Gastrointestinal Denies abdominal pain - *Genitourinary Denies pelvic pain - *Musculoskeletal Denies joint pain - Integumentary/Breasts Denies rash - *Neurologic Reports confusion, Denies dizziness, Denies localized weakness, Denies headache(s), Denies numbness - Psychiatric Denies depression, Denies paranoia Meds Home Medications Medication Instructions Recorded Confirmed Type dextromethorphan 20 mg-quinidine 1 cap PO Q12H 11/24/20 08/08/21 History 10 mg capsule ergocalciferol (vitamin D2) 1,250 1,250 mcg PO SA 11/24/20 08/09/21 History mcg (50,000 unit) capsule loperamide 2 mg tablet 2 mg PO Q3H PRN 11/24/20 08/08/21 History loratadine 10 mg tablet 10 mg PO DAILY 11/24/20 08/08/21 History omeprazole 40 mg capsule,delayed 40 mg PO AM 11/24/20 08/09/21 History release prazosin 1 mg capsule 1 mg PO HS 11/24/20 08/08/21 History sertraline 100 mg tablet 200 mg PO DAILY 11/24/20 08/08/21 History benztropine 0.5 mg tablet 0.5 mg PO BID 02/13/21 08/08/21 History bupropion HCl 150 mg 24 hr tablet, 150 mg PO AM 02/13/21 08/09/21 History extended release divalproex 250 mg tablet,delayed 250 mg PO TID 02/13/21 08/09/21 History release promethazine 25 mg tablet 25 mg PO Q6HP PRN 02/13/21 08/09/21 History Buspirone HCl [Buspirone 30mg 30 mg PO BID 04/01/21 08/08/21 History Tablets] Paliperidone [Paliperidone ER] 3 mg PO DAILY 04/01/21 08/09/21 History Trazodone HCl 100 mg PO HS 04/01/21 08/09/21 History hydrOXYzine pamoate [Vistaril 25mg 25 mg PO TIDP PRN 04/01/21 08/09/21 History capsule] Budesonide/Formoterol Fumarate 2 puff INHALATION BID 08/08/21 08/08/21 History [Budesonide-Formoterol 160-4.5] Acetaminoph
[2021-08-09 11:38] LABS: C-Reactive Protein 68.7 mg/L (0-4)
[2021-08-09 11:50] LABS: Procalcitonin 0.103 ng/mL (0.0-2.0)
--- NOTE | 2021-08-09 12:46 | HMH.PHAINT ---
MEDICATION RECONCILIATION COMPLETE USING MAR FROM [facility].
--- NOTE | 2021-08-09 12:47 | P.CONPHA_ITS ---
[facility] Pharmacy VTE Monitoring - Patient Demographics Admission date: 08/08/21 Report Date: 08/09/21 Time: 12:47 Allergies/Adverse Reactions: Patient Allergies banana [From BANANAS (FOOD/DRUG)] Allergy (Mild, Verified 04/14/21 15:32) Unknown allergy reaction chocolate flavor [From CHOCOLATE (FOOD/DRUG)] Allergy (Mild, Verified 04/14/21 15:32) UNKNOWN Height: 1.55 m Weight: 99.11 kg Patient Problems: Current Active Problems Respiratory failure with hypoxia (Acute) Pleural effusion, right (Acute) - VTE Risk Labs: VTE Related Lab Results Hgb 13.7 g/dL (12.2-16.2) 08/09/21 08:00 Hct 44.5 % (37.0-47.0) 08/09/21 08:00 Plt Count 176 K/mm3 (142-424) 08/09/21 08:00 BUN 25 mg/dl (7-17) H D 08/09/21 08:00 Creatinine 0.50 mg/dl (0.52-1.04) L D 08/09/21 08:00 Estimated Creat Clear 211 mL/min (50-200) 08/09/21 08:00 Was VTE Risk Assessment Performed: No Clinical Trial Participant: No - Prophylaxis VTE Prophylaxis Ordered?: Yes Types of VTE Prophylaxis: TEDS Knee High Location of Applied Device: Bilateral Lower Extremeties
[2021-08-10] VITALS (11 sets, daily range): BP systolic 91–152; BP diastolic 64–86; PULSE 70–89; RESP 16–18; TEMP 36.6–37; O2SAT 92–99; BMI 41.2
--- NOTE | 2021-08-10 04:31 | PC.NURSE ---
pt very sleepy at beginning of shift, and hard to wake, RT placed on Bipap and she stayed on Bipap until approx 0300, at this time she was placed back on 3L NC and was much more alert, O2 sats have been 97-98%, no complaints of pain or SOA
[2021-08-10 07:11] LABS: Basophils # 0.1 K/mm3 (0-0.2); Basophils % 0.9 % (0.1-2.0); Eosinophils # 0.3 K/mm3 (0.0-0.4); Eosinophils % 4.2 % (0.1-12.0); Hematocrit 43.1 % (37.0-47.0); Hemoglobin 12.9 g/dL (12.2-16.2); Lymphocytes # 2.3 K/mm3 (0.7-4.5); Mean Corpuscular Hemoglobin 29.2 pg (27.0-31.2); Mean Corpuscular Volume 97.3 fl (81-99); Mean Platelet Volume 8.7 fl (7.4-10.4); Monocytes # 0.6 K/mm3 (0.1-1.0); Monocytes % 8.5 % (1.7-9.3); Neutrophils % 55.4 % (37.0-80.0); Platelet Count 189 K/mm3 (142-424); Red Blood Count 4.43 M/mm3 (4.20-5.40); Red Cell Distribution Width 14.8 % (11.5-17.5); White Blood Count 7.3 K/mm3 (4.8-10.8)
[2021-08-10 07:23] LABS: Blood Urea Nitrogen 21 mg/dl (7-17); Calcium 8.5 mg/dl (8.4-10.2); Chloride 97 mmol/L (98-107); Creatinine Clearance Estimated 175 mL/min (50-200); Estimated Glomerular Filt Rate 106 ml/min (>60); GFR (African American) 128 ML/MIN (>60); Glucose 78 mg/dl (74-100); Potassium 3.4 mmoL/L (3.5-5.1); Sodium 140 mmol/L (136-145)
[2021-08-10 07:31] LABS: Anion Gap 8.4 mEq/L (5-15); Carbon Dioxide 38 mmol/L (22.0-30.0)
--- NOTE | 2021-08-10 09:18 | HMH.PULMCON ---
*Admission Date: 08/08/21 *Reason for consult:: Right pleural effusion, acute on chronic hypoxic respiratory failure *History of present illness: Ms. Ardon is a 50-year-old female greater than [id number] smoking history following in pulmonary emphysema on Breo inhaler presented to the hospital worsening respiratory status and found to be having large right-sided pleural effusion with adjacent atelectasis and pulmonary was called for further management. [facility] History Medical History: Reports:: Anxiety, Asthma, Chronic Obstructive Pulmonary Disease (COPD), Depression, Hyperlipidemia, Hypertension, Migraine Denies:: Diabetes Mellitus Type 1, Diabetes Mellitus Type 2 *Have you ever received a pneumonia vaccine?: Yes *Have you received a flu vaccine this season?: Yes Other Medical History: Reports: Other Other Surgeries: Yes: Other - *Social History Smoking Status: Current every day smoker Tobacco Type: cigarettes # Packs/Day (cigarettes): 1 #Yrs smoked (if former smoker): 20 Alcohol Intake: never Substance Use Type: denies use *Occupational Status:: disabled Housing: assisted living facility Household Members: caregiver *Travel in the last 8 weeks: None - Psychiatric History Pschychiatric History:: Reports:: Anxiety, Depression Family Hx:: Unable to obtain ROS - Cons Reports daytime sleepiness, Denies body ache(s), Denies chills - Card Reports shortness of breath, Reports shortness of breath with activity - Resp Respiratory: Reports chest congestion, Reports cough, Denies excessive phlegm production, Reports cough with sputum production, Denies pain with breathing, Reports snoring, Reports wheezing - GI Gastrointestingal: Denies: abdominal pain - Psych Denies thoughts of hurting/killing others, Denies thoughts of hurting/killing yourself Meds Home Medications Medication Instructions Recorded Confirmed Type dextromethorphan 20 mg-quinidine 1 cap PO Q12H 11/24/20 08/08/21 History 10 mg capsule ergocalciferol (vitamin D2) 1,250 1,250 mcg PO SA 11/24/20 08/09/21 History mcg (50,000 unit) capsule loperamide 2 mg tablet 2 mg PO Q3H PRN 11/24/20 08/08/21 History loratadine 10 mg tablet 10 mg PO DAILY 11/24/20 08/08/21 History omeprazole 40 mg capsule,delayed 40 mg PO AM 11/24/20 08/09/21 History release prazosin 1 mg capsule 1 mg PO HS 11/24/20 08/08/21 History sertraline 100 mg tablet 200 mg PO DAILY 11/24/20 08/08/21 History benztropine 0.5 mg tablet 0.5 mg PO BID 02/13/21 08/08/21 History bupropion HCl 150 mg 24 hr tablet, 150 mg PO AM 02/13/21 08/09/21 History extended release divalproex 250 mg tablet,delayed 250 mg PO TID 02/13/21 08/09/21 History release promethazine 25 mg tablet 25 mg PO Q6HP PRN 02/13/21 08/09/21 History Buspirone HCl [Buspirone 30mg 30 mg PO BID 04/01/21 08/08/21 History Tablets] Paliperidone [Paliperidone ER] 3 mg PO DAILY 04/01/21 08/09/21 History Trazodone HCl 100 mg PO HS 04/01/21 08/09/21 History hydrOXYzine pamoate [Vistaril 25mg 25 mg PO TIDP PRN 04/01/21 08/09/21 History capsule] Budesonide/Formoterol Fumarate 2 puff INHALATION BID 08/08/21 08/08/21 History [Budesonide-Formoterol 160-4.5] Acetaminophen 500 mg PO Q6HP PRN 08/09/21 08/09/21 History Albuterol Sulfate [Albuterol 2.5 mg IH BIDP PRN 08/09/21 08/09/21 History 0.083% 2.5mg/3mL neb] Albuterol Sulfate [Proair Hfa] 1 puff IH Q4-6H PRN 08/09/21 08/09/21 History Divalproex Sodium 500 mg PO TID 08/09/21 08/09/21 History Ipratropium/Albuterol Sulfate 3 ml IH QIDP PRN 08/09/21 08/09/21 History [Iprat-Albut 0.5-3(2.5) mg/3 ml] Paliperidone [Paliperidone ER] 9 mg PO DAILY 08/09/21 08/09/21 History Vilazodone HCl [Viibryd 10mg 10 mg PO DAILY 08/09/21 08/09/21 History Tablet] buPROPion HCL [Bupropion Xl] 300 mg PO AM 08/09/21 08/09/21 History Allergies Allergy/AdvReac Type Severity Reaction Status Date / Time banana Allergy Mild Unknown Verified 04/14/21 15:32 [From BANANAS (FOOD/DRUG)]
--- NOTE | 2021-08-10 11:07 | P.PN_ITS ---
Internal Medicine - PN: Subj *Date: 08/10/21 *Time: 08:15 Interval history: pt states rt side pain Exam Vital signs and Labs for Last 24 Hours: Temp Pulse Resp BP Pulse Ox 98.4 F 77 18 121/73 93 L 08/10/21 08:00 08/10/21 08:00 08/10/21 08:00 08/10/21 08:00 08/10/21 08:00 Laboratory Results - last 24 hr 08/09/21 08:00: C-Reactive Protein 68.7 H, Procalcitonin 0.103 08/10/21 06:06: WBC 7.3, RBC 4.43, Hgb 12.9, Hct 43.1, MCV 97.3, MCH 29.2, MCHC 30.0 L, RDW 14.8, Plt Count 189, MPV 8.7, Neut % (Auto) 55.4, Lymph % (Auto) 31.0, [place] % (Auto) 8.5, Eos % (Auto) 4.2, Baso % (Auto) 0.9, Neut # (Auto) 4.0, Lymph # (Auto) 2.3, [place] # (Auto) 0.6, Eos # (Auto) 0.3, Baso # (Auto) 0.1 08/10/21 06:06: Sodium 140, Potassium 3.4 L, Chloride 97 L, Carbon Dioxide 38 H, Anion Gap 8.4, BUN 21 H, Creatinine 0.60, Estimated Creat Clear 175, Estimated GFR 106, Est GFR ( Amer) 128, Glucose 78, Calcium 8.5 I & O for Last 24 hours: Intake & Output 08/07/21 08/08/21 08/09/21 08/10/21 11:59 11:59 11:59 11:59 Intake Total 360 / 360 960 / 960 Output Total 200 / 200 Balance 160 / 160 960 / 960 Weight 200 lb 218 lb 8 oz 218 lb 4.122 oz - Constitutional no acute distress, obese - *Routine HEENT Exam Head: Present: normocephalic Eye: Present: PERRL ENT: Present: mucous membranes moist - *Routine Neck Exam Present: supple. Absent: lymphadenopathy - *Routine Respiratory Exam Present: decreased breath sounds - *Routine Cardiovascular Exam Present: RRR - *Routine Abdominal Exam Present: soft, normoactive bowel sounds. Absent: tenderness - *Routine Extremities Exam Absent: cyanosis, clubbing, edema - *Routine Skin Exam Present: warm. Absent: rash - *Routine Neurological Exam Present: alert Assessment and Plan (1) Obesity Status: Acute Qualifiers: Obesity type: due to excess calories Obesity classification: adult class 1 (BMI 30 - 34.9) Serious obesity comorbidity presence: with serious comorbidity Body mass index: BMI 33.0-33.9 Qualified Code(s): E66.09 - Other obesity due to excess calories; Z68.33 - Body mass index [BMI] 33.0-33.9, adult Category: Medical Code(s): E66.9 - Obesity, unspecified (2) COPD (chronic obstructive pulmonary disease) Status: Acute Qualifiers: COPD type: COPD with acute exacerbation Qualified Code(s): J44.1 - Chronic obstructive pulmonary disease with (acute) exacerbation Category: Medical Code(s): J44.9 - Chronic obstructive pulmonary disease, unspecified (3) Community acquired pneumonia Status: Acute Qualifiers: Laterality: unspecified laterality Qualified Code(s): J18.9 - Pneumonia, unspecified organism Category: Medical Code(s): J18.9 - Pneumonia, unspecified organism (4) Pleural effusion, right Status: Acute Category: Medical Code(s): J90 - Pleural effusion, not elsewhere classified - Assessment and plan all Dx Assessment and Plan for all problems:: rounded with dr soni all orders per dr soni pulm consult
--- NOTE | 2021-08-10 11:45 | PC.NURSE ---
Attempted to call pt's POA 'Ella Savage' x2 in regards to obtaining consent for thoracentesis. Pt is not oriented to make these decisions for herself or sign consent. Will attempt to call again shortly.
--- NOTE | 2021-08-10 12:25 | PC.NURSE ---
Telephone consent gotten from pt's sister Anita Cruz. Verified w/ H LAWRENCE Monteiro.
--- NOTE | 2021-08-10 13:00 | US_ITS ---
FINAL REPORT CLINICAL HISTORY: RT PLURAL EFF FINDINGS: Ultrasound guidance was performed for thoracentesis. The right pleural effusion was localized for thoracentesis by the referring surface. On the postthoracentesis image, the right effusion is markedly improved. 1450 ML of fluid was aspirated. IMPRESSION: Ultrasound guidance for right thoracentesis. Authenticated by Tone Hsu III, MD on 08/10/2021 04:19:59 PM [facility]
--- NOTE | 2021-08-10 13:26 | SW/DCPLANNER ---
Addendum entered by Daxa Goldsmith 08/12/21 10:30: PATIENT HAS BEEN DISCHARGED TO GO BACK TO [facility]. I HAVE CALLED [facility] TO COME AND PICK HER UP... Original Note: PATIENT ADMITTED TO [facility] FROM [facility] WITH SHORTNESS OF BREATH, CHANGE IN MENTAL STATUS, HIGH BLOOD SUGAR AND LOW 02 SATS IN THE 80'S. PATIENT IS KNOWN TO HAVE DEMENTIA, PATIENT HAS BEEN OF LOW INTELLECTUAL ALL OF HER LIFE. SHE DOES WELL AT HER PERSONAL SNF AND WANTS TO RETURN BACK.. NOT SURE IF SHE IS GOING TO BE ABLE TO RETURN BACK, MAY NEED A HIGHER LEVEL OF CARE FOR SHORT TERM. IF THIS IS DETERMINED I WILL FIND HER A CARE HOME BED AT TIME OF DISCHARGE.. DISPOSITION UNCERTAIN AT THIS TIME...
[2021-08-10 14:08] LABS: Chloride 98 mmol/L (98-107); Potassium 4.4 mmoL/L (3.5-5.1); Sodium 140 mmol/L (136-145)
[2021-08-10 14:11] LABS: Alanine Aminotransferase 26 U/L (12-78); Albumin Level 3.4 g/dl (3.5-5.0); Albumin/Globulin Ratio 0.9 (1.1-1.8); Alkaline Phosphatase 99 U/L (38-126); Aspartate Amino Transferase 101 U/L (14-36); Bilirubin,Total 0.5 mg/dl (0.2-1.3); Blood Urea Nitrogen 20 mg/dl (7-17); Calcium 8.4 mg/dl (8.4-10.2); Creatinine Clearance Estimated 175 mL/min (50-200); Estimated Glomerular Filt Rate 106 ml/min (>60); GFR (African American) 128 ML/MIN (>60); Globulin 3.6 g/dL (1.3-3.2); Glucose 107 mg/dl (74-100)
[2021-08-10 14:18] LABS: Anion Gap 9.4 mEq/L (5-15); Carbon Dioxide 37 mmol/L (22.0-30.0)
--- NOTE | 2021-08-10 14:34 | XR_ITS ---
FINAL REPORT CLINICAL HISTORY: post procedure thoracentesis FINDINGS: SINGLE VIEW CHEST. The heart is normal in size. The mediastinum is unremarkable. There is mild right lung base atelectasis. There is a small right pleural effusion. There is no pneumothorax. IMPRESSION: Mild right lung base atelectasis. Small right pleural effusion. Reviewed, Interpreted and Dictated by Tone Hsu III, MD Transcribed by Massiel Champagne Authenticated by Tone Hsu III, MD on 08/10/2021 04:00:35 PM [facility]
[2021-08-10 15:17] LABS: Lactate Dehydrogenase 291 U/L (313-618)
--- NOTE | 2021-08-10 16:57 | HMH.PROC ---
[facility] Procedure Note Procedure Note:: Procedure: Right Thoracentesis Indication for procedure: Pleural Effusion, Hypoxic Respiratory failure A time out was performed, and the chest x-ray was reviewed, the appropriate side was confirmed and marked. My hands were washed immediately prior to the procedure. I wore a surgical cap, mask with protective eyewear, sterile gown, and sterile gloves throughout the procedure. The patient was prepped and draped in a sterile manner using chlorhexidine scrub after the appropriate level was percussed and confirmed by ultrasound. 1% lidocaine was used to anesthetize the skin, subcutaneous tissue, superior aspect of the rib periosteum and parietal pleura. A finder needle was then introduced at the seventh intercoastal space posteriorly to locate the pleural fluid; straw colored was aspirated. A 10-blade scalpel was used to catherine the skin at the insertion site. The [id number] needle was then introduced through the skin incision into the pleural space using negative aspiration pressure and the red colorimetric indicator to confirm appropriate positioning of the needle. The thoracentesis catheter was then threaded without difficulty. 1450 ml of straw-colored fluid was removed without difficulty. The catheter was then removed. No immediate complications were noted during the procedure. A post-procedure chest X-ray is pending at the time of this note. The fluid will be sent for routine pleural studies, cultures along with cytopathology. Patient tolerated the procedure well Estimated blood loss is 5 cc.
[2021-08-10 21:08] LABS: Source, Body Fld. Thoracentesis Fluid
[2021-08-10 21:09] LABS: Appearance,Body Fld. Hazy; Volume,Body Fld. 1400 mL
[2021-08-10 21:10] LABS: RBC,Body Fluid < 10 cells/uL (< 10 X 10^3); TNC,Body Fluid 159 cells/uL (< 1000)
[2021-08-10 22:13] LABS: Polynuclear WBC,Body Fluid 15 %
[2021-08-10 22:14] LABS: Mononuclear WBCs,Body Fluid 85 %
[2021-08-11] VITALS (7 sets, daily range): BP systolic 120–149; BP diastolic 64–83; PULSE 64–88; RESP 17–22; TEMP 36.3–36.6; O2SAT 90–95; BMI 41.3
--- NOTE | 2021-08-11 06:00 | XR_ITS ---
PROCEDURE INFORMATION: Exam: XR Chest Exam date and time: 08/11/2021 6:00 AM Age: 50 years old Clinical indication: Condition or disease; Lung condition and disease; Pneumonia; Additional info: Pnm TECHNIQUE: Imaging protocol: XR of the chest. Views: 1 view. COMPARISON: CR XR CHEST PORTABLE 08/10/2021 2:49 PM FINDINGS: Lungs: Suspicion for right lower lung infiltrate. Calcified left perihilar granuloma, stable. Pleural spaces: Stable small right pleural effusion. Heart/Mediastinum: Unremarkable. No cardiomegaly. Bones/joints: Unremarkable. IMPRESSION: 1. Suspicion for right lower lung infiltrate. 2. Stable small right pleural effusion. 3. Stable left perihilar granuloma.
[2021-08-11 07:04] LABS: Basophils % 0.6 % (0.1-2.0); Eosinophils # 0.5 K/mm3 (0.0-0.4); Eosinophils % 5.7 % (0.1-12.0); Hematocrit 42.7 % (37.0-47.0); Lymphocytes # 3.2 K/mm3 (0.7-4.5); Lymphocytes % 39.9 % (10-50); Mean Corpuscular HGB Conc 30.6 g/dL (31.8-35.4); Mean Corpuscular Hemoglobin 29.5 pg (27.0-31.2); Mean Corpuscular Volume 96.5 fl (81-99); Mean Platelet Volume 8.8 fl (7.4-10.4); Monocytes # 0.5 K/mm3 (0.1-1.0); Monocytes % 6.6 % (1.7-9.3); Neutrophils # 3.8 K/mm3 (1.8-7.8); Neutrophils % 47.2 % (37.0-80.0); Platelet Count 176 K/mm3 (142-424); Red Blood Count 4.42 M/mm3 (4.20-5.40); Red Cell Distribution Width 14.7 % (11.5-17.5); White Blood Count 8.1 K/mm3 (4.8-10.8)
[2021-08-11 07:15] LABS: Anion Gap 7.6 mEq/L (5-15); Blood Urea Nitrogen 19 mg/dl (7-17); Calcium 8.1 mg/dl (8.4-10.2); Carbon Dioxide 40 mmol/L (22.0-30.0); Chloride 97 mmol/L (98-107); Creatinine Clearance Estimated 211 mL/min (50-200); Estimated Glomerular Filt Rate 131 ml/min (>60); GFR (African American) 158 ML/MIN (>60); Glucose 80 mg/dl (74-100); Potassium 3.6 mmoL/L (3.5-5.1); Sodium 141 mmol/L (136-145)
--- NOTE | 2021-08-11 09:21 | HMH.PULMPN ---
Internal Medicine - PN: Subj *Date: 08/11/21 *Time: 11:33 Interval history: Patient admits significant improvement in her respiratory status. No acute respiratory vents overnight. Exam - Constitutional Constitutional:: Present: no acute distress, comfortable - HENMT Exam HENMT: Present: normocephalic, atraumatic - Eye Exam Eyes:: Present: normal appearance both eyes and related structures - Neck Exam Neck:: Present: normal visual inspection - Respiratory Exam Respiratory:: Present: able to speak in complete sentences, no respiratory distress, wheezing - Cardiovascular Exam Cardiac:: Present: S1, S2 - GI Exam GI:: Present: soft - Skin Exam Skin: Present: warm, no rash - Neurological Exam Neurological: Present: alert, awake - Extremities Exam Extremities: Present: no cyanosis, no clubbing, no edema Assessment and Plan (1) Obesity Status: Acute Qualifiers: Obesity type: due to excess calories Obesity classification: adult class 1 (BMI 30 - 34.9) Serious obesity comorbidity presence: with serious comorbidity Body mass index: BMI 33.0-33.9 Qualified Code(s): E66.09 - Other obesity due to excess calories; Z68.33 - Body mass index [BMI] 33.0-33.9, adult Category: Medical Code(s): E66.9 - Obesity, unspecified (2) COPD (chronic obstructive pulmonary disease) Status: Acute Qualifiers: COPD type: COPD with acute exacerbation Qualified Code(s): J44.1 - Chronic obstructive pulmonary disease with (acute) exacerbation Category: Medical Code(s): J44.9 - Chronic obstructive pulmonary disease, unspecified (3) Community acquired pneumonia Status: Acute Qualifiers: Laterality: unspecified laterality Qualified Code(s): J18.9 - Pneumonia, unspecified organism Category: Medical Code(s): J18.9 - Pneumonia, unspecified organism (4) Pleural effusion, right Status: Acute Category: Medical Code(s): J90 - Pleural effusion, not elsewhere classified - Assessment and plan all Dx Assessment and Plan for all problems:: #Right pleural effusion: #COPD exacerbation: 50-year-old female greater than [id number] smoking history in pulmonary clinic for emphysema on Breo inhaler presented with worsening respiratory distress. No evidence of leukocytosis. Afebrile. ABG on admission showed hypercarbic respiratory failure on admission initiated on BiPAP, eventually weaned to nasal cannula. CT chest on admission showed large right-sided pleural effusion along with adjacent atelectasis. No obvious airspace disease noted on the left pulmonary lung morgan. Patient previous admissions was concern for sleep apnea and recommendation was made to follow with sleep clinic with polysomnography testing however patient did not have polysomnography testing not follow with the sleep clinic. Will arrange that as an outpatient on this discharge. No obvious significant airspace disease noted adjacent to the effusion, given the size of the effusion and adjacent atelectasis/airspace disease this is less likely to be parapneumonic effusion. Interval update: Status post right-sided thoracentesis with removal of 1450 mL of yellow/straw coloured pleural fluid. Will follow with pleural fluid studies along with cytopathology results. Improving aeration the right lung. Pleural fluid culture pending so far. Auscultation continues to reveal mild expiratory wheeze though improved from admission. Plan: -Lasix 40 mg IV once. Volume optimization as per primary team -Continue nasal cannula oxygen supplementation to maintain O2 saturation goal of 88% and above. Will wean as tolerated. -Continue ceftriaxone and azithromycin, can be weaned to levofloxacin on discharge. -Change inhalers to Trelegy 100. Technique training through RT -Prednisone 40 mg daily for a total of 5 days -Recommend to follow with sleep clinic as an outpatient basis. #Thank you for involving pulmonary in this patient care. We will continue to fol
--- NOTE | 2021-08-11 09:26 | HMH.ACPN2 ---
Internal Medicine - PN: Subj *Date: 08/11/21 *Time: 09:06 Interval history: 50-year-old female patient lying in bed quietly, she denies any respiratory distress or abdominal pain during the night. She had aright-sided thoracentesis with removal of 1450 mL of yellow/straw coloured pleural fluid performed yesterday and tolerated the procedure well. She is encouraged to be up out of bed in chair for all meals, will have PT/OT eval. Current oxygenation status 95% on 2 L per nasal cannula, will DC oxygen and assess. Exam Vital signs and Labs for Last 24 Hours: Temp Pulse Resp BP Pulse Ox 97.4 F L 73 20 120/70 95 08/11/21 08:00 08/11/21 08:00 08/11/21 08:00 08/11/21 08:00 08/11/21 08:00 Laboratory Results - last 24 hr 08/10/21 11:30: Fluid Source Thoracentesis fluid, Fluid Volume 1400, Fluid Appearance Hazy, Fluid RBC (Auto) < 10, Fld Tot Nucleated Cell 159, Fld Polynuclear WBCs % 15, Fld Mononuclear WBCs % 85 08/10/21 13:34: Sodium 140, Potassium 4.4 D, Chloride 98, Carbon Dioxide 37 H, Anion Gap 9.4, BUN 20 H, Creatinine 0.60, Estimated Creat Clear 175, Estimated GFR 106, Est GFR ( Amer) 128, Glucose 107 H D, Calcium 8.4, Total Bilirubin 0.5, AST 101 H D, ALT 26 D, Alkaline Phosphatase 99, Lactate Dehydrogenase 291 L, Total Protein 7.0, Albumin 3.4 L, Globulin 3.6 H, Albumin/Globulin Ratio 0.9 L 08/11/21 05:38: WBC 8.1, RBC 4.42, Hgb 13.0, Hct 42.7, MCV 96.5, MCH 29.5, MCHC 30.6 L, RDW 14.7, Plt Count 176, MPV 8.8, Neut % (Auto) 47.2, Lymph % (Auto) 39.9, [place] % (Auto) 6.6, Eos % (Auto) 5.7, Baso % (Auto) 0.6, Neut # (Auto) 3.8, Lymph # (Auto) 3.2, [place] # (Auto) 0.5, Eos # (Auto) 0.5 H, Baso # (Auto) 0.0 08/11/21 05:38: Sodium 141, Potassium 3.6, Chloride 97 L, Carbon Dioxide 40 H, Anion Gap 7.6, BUN 19 H, Creatinine 0.50 L, Estimated Creat Clear 211, Estimated GFR 131, Est GFR ( Amer) 158 D, Glucose 80 D, Calcium 8.1 L I & O for Last 24 hours: Intake & Output 08/08/21 08/09/21 08/10/21 08/11/21 23:59 23:59 23:59 23:59 Intake Total 240 / 360 720 / 720 960 / 960 280 / 280 Output Total 200 / 200 Balance 40 / 160 720 / 720 960 / 960 280 / 280 Weight 216 lb 9 oz 218 lb 8 oz 218 lb 4.122 oz 218 lb 9.6 oz Microbiology Reports for the Last 24 Hours: Microbiology 08/10/21 11:30 Pleural Fluid - Pleura,Rt Lung Gram Stain - Final - Constitutional no acute distress, chronically ill appearing - *Routine HEENT Exam Head: Present: normocephalic Eye: Present: EOMI ENT: Present: mucous membranes moist - *Routine Neck Exam Present: trachea midline. Absent: tracheal deviation - *Routine Respiratory Exam Present: wheezes. Absent: accessory muscle use - *Routine Cardiovascular Exam Present: RRR - *Routine Abdominal Exam Present: soft, normoactive bowel sounds. Absent: tenderness, firm - *Routine Extremities Exam Present: full ROM, pulses intact. Absent: cyanosis, clubbing - *Routine Skin Exam Present: intact, dry. Absent: cyanosis, erythema - *Routine Neurological Exam Present: alert, altered mental status. Absent: motor deficit - Routine Psychiatric Exam Present: normal affect, cooperative. Absent: normal thought process Assessment and Plan (1) Obesity Status: Acute Qualifiers: Obesity type: due to excess calories Obesity classification: adult class 1 (BMI 30 - 34.9) Serious obesity comorbidity presence: with serious comorbidity Body mass index: BMI 33.0-33.9 Qualified Code(s): E66.09 - Other obesity due to excess calories; Z68.33 - Body mass index [BMI] 33.0-33.9, adult Category: Medical Code(s): E66.9 - Obesity, unspecified (2) COPD (chronic obstructive pulmonary disease) Status: Acute Qualifiers: COPD type: COPD with acute exacerbation Qualified Code(s): J44.1 - Chronic obstructive pulmonary disease with (acute) exacerbation Category: Medical Code(s): J44.9 - Chronic obstructive pulmonary disease, unspecified (3) Community
--- NOTE | 2021-08-11 10:05 | HMH.OTEV ---
OT Inpatient Evaluation Rehab OT IP Evaluation Start: 08/11/21 09:25 Freq: ONCE Status: Complete Protocol: Document 08/11/21 09:49 JEAN (Rec: 08/11/21 10[id number] Rehab OT IP Assessment Subjective History Pt oriented to self. Pt agreeable to engage in evaluation. Pt was admitted via ED on 08/08/21 due to SOB and AMS. Pt is a resident of [facility]. The following information was copied from history and physical report: this patient was sent from local [facility]- for sob and change in mental status- presenting to the emergency department after episode of confusion. This morning, she woke up to go to the restroom and staff saw her try to urinate on the floor. She does not remember this episode. Painful urination. Has had occasional lower abdominal pain. Denies nausea or vomiting. No recent illness, fevers, chills, cough , shortness of breath. When EMS arrived fingerstick blood glucose was 117. She was conversational, but tearful. Found to have hypoxia with O2 sat of 80% on room air. No history of respiratory issues like COPD, sleep apnea. Does not use home oxygen. Patient resides at [facility]. She has a history of dementia, bipolar disorder. On arrival she denies headache, confusion, chest pain. No numbness, weakness, tingling in her arms or legs. No vision changes. Pt has a past medical history of Anxiety, Asthma, Chronic Obstructive Pulmonary Disease (COPD), Depression, Hyperlipidemia, Hypertension, Migraine. Pt reports prior to being in
--- NOTE | 2021-08-11 11:25 | HMH.PTEV ---
Physical Therapy Evaluation Rehab PT IP Evaluation Start: 08/11/21 09:25 Freq: ONCE Status: Active Protocol: Document 08/11/21 09:25 PERCY (Rec: 08/11/21 11:24 PHORROSA [id number]) Subjective/History History History 50 yowf adm to [facility] with possible UTI and pleural effusion. She resides in a personal shelter and is independent with all mobility at baseline. Subjective Subjective Pt reports she feels good this morning, no new c/o. Rehab PT IP Eval Objective Appearance Patient Behavior Appropriate Patient Orientation Person Difficulty following instructions none Speech Pattern Clear,Patient Baseline Ambulation Patient Able to Ambulate Yes Ambulation Observation IP General Gait Pattern Observation Wide Based Gait Ambulation Distance (feet) 30 Ambulation Assistive Device None Ambulation Ability Independent Balance Ability to Arise Able, uses arms to help Sitting Balance Steady, safe Standing Balance Steady, wide stance Dynamic Sitting Balance Ability Good Dynamic Standing Balance Ability Good Transfers Bed Transfer Ability Independent Chair Transfer Ability Supervision/Stand by Sit to Stand Bed Transfer Ability Supervision/Stand by Sit to Stand Chair Transfer Ability Supervision/Stand by ROM All Extremities PT ROM Status WFL MMT All Extremities PT MMT WFL Rehab PT IP prob,goals,plan Problems Date of Evaluation: 08/11/21 Discharge Plan PT Discharge Plan Pt appears to be at baseline for all mobility at this time and is appropriate to return to prior living situation once medically stable. G -code Required No Eval Complexity Eval Charge Codes 14794 - Moderate Complexity PHYSICIAN CERTIFICATION: I certify the specified therapy services for Nestor Ardon are required, authorized, and reviewed every 30 days.
[2021-08-12] VITALS: BP 125/63; PULSE 75; RESP 16; TEMP 36.7; O2SAT 90
[2021-08-12 04:00] VITALS: BP 132/73; PULSE 71; RESP 18; TEMP 36.9; O2SAT 92
[2021-08-12 05:00] VITALS: BMI 40.6
[2021-08-12 06:59] LABS: Basophils # 0.1 K/mm3 (0-0.2); Basophils % 1.5 % (0.1-2.0); Eosinophils # 0.5 K/mm3 (0.0-0.4); Eosinophils % 5.2 % (0.1-12.0); Hematocrit 43.4 % (37.0-47.0); Hemoglobin 13.2 g/dL (12.2-16.2); Lymphocytes # 4.2 K/mm3 (0.7-4.5); Lymphocytes % 45.1 % (10-50); Mean Corpuscular HGB Conc 30.5 g/dL (31.8-35.4); Mean Corpuscular Hemoglobin 29.1 pg (27.0-31.2); Mean Corpuscular Volume 95.5 fl (81-99); Mean Platelet Volume 8.3 fl (7.4-10.4); Monocytes # 0.7 K/mm3 (0.1-1.0); Monocytes % 7.4 % (1.7-9.3); Neutrophils # 3.8 K/mm3 (1.8-7.8); Neutrophils % 40.7 % (37.0-80.0); Platelet Count 195 K/mm3 (142-424); Red Blood Count 4.55 M/mm3 (4.20-5.40); Red Cell Distribution Width 14.8 % (11.5-17.5); White Blood Count 9.3 K/mm3 (4.8-10.8)
[2021-08-12 07:27] LABS: Blood Urea Nitrogen 17 mg/dl (7-17); Calcium 8.3 mg/dl (8.4-10.2); Chloride 94 mmol/L (98-107); Creatinine Clearance Estimated 207 mL/min (50-200); Estimated Glomerular Filt Rate 131 ml/min (>60); GFR (African American) 158 ML/MIN (>60); Glucose 79 mg/dl (74-100); Potassium 3.9 mmoL/L (3.5-5.1); Sodium 136 mmol/L (136-145)
[2021-08-12 07:34] LABS: Anion Gap 8.9 mEq/L (5-15); Carbon Dioxide 37 mmol/L (22.0-30.0)
[2021-08-12 08:00] VITALS: BP 130/74; PULSE 85; RESP 18; TEMP 36.5; O2SAT 94
--- NOTE | 2021-08-12 08:11 | PC.NURSE ---
patient rested fair through night. VSS. apap for c/o pain to right throracic site. up with sba to bathroom. bed alarm in place d/t patient being impulsive.
--- NOTE | 2021-08-12 09:27 | HMH.PULMPN ---
Internal Medicine - PN: Subj *Date: 08/25/21 *Time: 14:49 Interval history: No acute respite events overnight. Patient admits continued improvement, weaned to room air. Exam - Constitutional Constitutional:: Present: no acute distress, comfortable - HENMT Exam HENMT: Present: normocephalic, atraumatic - Eye Exam Eyes:: Present: normal appearance both eyes and related structures - Neck Exam Neck:: Present: normal visual inspection - Respiratory Exam Respiratory:: Present: able to speak in complete sentences, no respiratory distress, normal respiratory effort. Absent: wheezing - Cardiovascular Exam Cardiac:: Present: S1, S2 - GI Exam GI:: Present: soft, no hepatosplenomegaly - Skin Exam Skin: Present: warm, no rash - Neurological Exam Neurological: Present: alert, awake, normal cognition - Extremities Exam Extremities: Present: no cyanosis, no clubbing, no edema Assessment and Plan (1) Obesity Status: Acute Qualifiers: Obesity type: due to excess calories Obesity classification: adult class 1 (BMI 30 - 34.9) Serious obesity comorbidity presence: with serious comorbidity Body mass index: BMI 33.0-33.9 Qualified Code(s): E66.09 - Other obesity due to excess calories; Z68.33 - Body mass index [BMI] 33.0-33.9, adult Category: Medical Code(s): E66.9 - Obesity, unspecified (2) COPD (chronic obstructive pulmonary disease) Status: Acute Qualifiers: COPD type: COPD with acute exacerbation Qualified Code(s): J44.1 - Chronic obstructive pulmonary disease with (acute) exacerbation Category: Medical Code(s): J44.9 - Chronic obstructive pulmonary disease, unspecified (3) Community acquired pneumonia Status: Acute Qualifiers: Laterality: unspecified laterality Qualified Code(s): J18.9 - Pneumonia, unspecified organism Category: Medical Code(s): J18.9 - Pneumonia, unspecified organism (4) Pleural effusion, right Status: Acute Category: Medical Code(s): J90 - Pleural effusion, not elsewhere classified - Assessment and plan all Dx Assessment and Plan for all problems:: #Right pleural effusion: #COPD exacerbation: 50-year-old female greater than 45-sfgb-ryhm smoking history in pulmonary clinic for emphysema on Breo inhaler presented with worsening respiratory distress. No evidence of leukocytosis. Afebrile. ABG on admission showed hypercarbic respiratory failure on admission initiated on BiPAP, eventually weaned to nasal cannula. CT chest on admission showed large right-sided pleural effusion along with adjacent atelectasis. No obvious airspace disease noted on the left pulmonary lung morgan. Patient previous admissions was concern for sleep apnea and recommendation was made to follow with sleep clinic with polysomnography testing however patient did not have polysomnography testing not follow with the sleep clinic. Will arrange that as an outpatient on this discharge. No obvious significant airspace disease noted adjacent to the effusion, given the size of the effusion and adjacent atelectasis/airspace disease this is less likely to be parapneumonic effusion. Status post right-sided thoracentesis with removal of 1450 mL of yellow/straw coloured pleural fluid. Will follow with pleural fluid studies along with cytopathology results. Improving aeration the right lung. Interval update: Patient respiratory status continued to improve, weaned to room air. Exudative pleural effusion, total protein ratio more than 0.5 (7/4), albumin ratio also greater than 0.5 and LDH ratio more than 0.6 (291/184) Pleural fluid cultures no growth 5 days Pleural fluid cytopathology negative for malignancy. Plan: -Continue nasal cannula oxygen supplementation to maintain O2 saturation goal of 88% and above. Will wean as tolerated. -Continue ceftriaxone and azithromycin, can be weaned to levofloxacin on discharge. -Change inhalers to Trelegy 100. Technique training through RT -Prednisone
--- NOTE | 2021-08-12 09:56 | HMH.DCSUM ---
General - General Admission date:: 08/08/21 Discharge date: 08/12/21 HPI HPI: this patient was sent from local long-term - [facility]- for sob and change in mental status- presenting to the emergency department after episode of confusion. This morning, she woke up to go to the restroom and staff saw her try to urinate on the floor. She does not remember this episode. Painful urination. Has had occasional lower abdominal pain. Denies nausea or vomiting. No recent illness, fevers, chills, cough, shortness of breath. When EMS arrived fingerstick blood glucose was 117. She was conversational, but tearful. Found to have hypoxia with O2 sat of 80% on room air. No history of respiratory issues like COPD, sleep apnea. Does not use home oxygen. Patient resides at [facility]. She has a history of dementia, bipolar disorder. On arrival she denies headache, confusion, chest pain. No numbness, weakness, tingling in her arms or legs. No vision changes. Hospital Course Hospital Course: Laboratory Tests 08/08/21 08/08/21 08/08/21 09:12 09:24 09:24 WBC 6.8 RBC 4.93 Hgb 14.4 Hct 48.9 H MCV 99.2 H MCH 29.3 MCHC 29.5 L RDW 15.2 Plt Count 172 MPV 9.2 Neut % (Auto) 68.1 Lymph % (Auto) 20.7 [place] % (Auto) 6.7 Eos % (Auto) 3.2 Baso % (Auto) 1.3 Neut # (Auto) 4.7 Lymph # (Auto) 1.4 [place] # (Auto) 0.5 Eos # (Auto) 0.2 Baso # (Auto) 0.1 VBG pH 7.24 L VBG pCO2 80.9 H VBG pO2 54.3 H VBG HCO3 33.5 H VBG Total CO2 36.0 H VBG O2 Saturation 85.0 H VBG Base Excess 6.0 H Sodium Potassium Chloride Carbon Dioxide Anion Gap BUN Creatinine Estimated Creat Clear Estimated GFR Est GFR ( Amer) Glucose Calcium Total Bilirubin AST ALT Alkaline Phosphatase Lactate Dehydrogenase Troponin I C-Reactive Protein NT-Pro-B Natriuret Pep Total Protein Albumin Globulin Albumin/Globulin Ratio Lipase Procalcitonin Urine Color Tofte Urine Appearance Sl cloudy Urine pH 6.0 Ur Specific [place] >= 1.030 Urine Protein 1+ Urine Glucose (UA) Negative Urine Ketones 1+ Urine Blood 3+ Urine Nitrate Negative Urine Bilirubin 2+ A Urine Urobilinogen 4.0 Ur Leukocyte Esterase Negative Urine RBC 10-20 Urine WBC 3-5 Ur Squamous Epith Cells None Urine Bacteria Trace Fluid Source Fluid Volume Fluid Appearance Fluid RBC (Auto) Fld Tot Nucleated Cell Fld Polynuclear WBCs % Fld Mononuclear WBCs % SARS-CoV-2 (PCR) Influenza A Untype (PCR) Influenza Type B (PCR) 08/08/21 08/08/21 08/08/21 09:24 09:24 09:24 WBC RBC Hgb Hct MCV MCH MCHC RDW Plt Count MPV Neut % (Auto) Lymph % (Auto) [place] % (Auto) Eos % (Auto) Baso % (Auto) Neut # (Auto) Lymph # (Auto) [place] # (Auto) Eos # (Auto) Baso # (Auto) VBG pH VBG pCO2 VBG pO2 VBG HCO3 VBG Total CO2 VBG O2 Saturation VBG Base Excess Sodium 143 Potassium 3.4 L Chloride 101 Carbon Dioxide 37 H Anion Gap 8.4 BUN 19 H Creatinine 0.70 Estimated Creat Clear 138 Estimated GFR 89 Est GFR ( Amer) 107 Glucose 85 Calcium 8.7 Total Bilirubin 0.6 AST 51 H ALT 19 Alkaline Phosphatase 116 Lactate Dehydrogenase Troponin I < 0.01 C-Reactive Protein NT-Pro-B Natriuret Pep 290 H Total Protein 6.9 Albumin 3.5 Globulin 3.4 H Albumin/Globulin Ratio 1.0 L Lipase 21 L Procalcitonin Urine Color Urine Appearance Urine pH Ur Specific [place] Urine Protein Urine Glucose (UA) Urine Ketones Urine Blood Urine Nitrate Urine Bilirubin Urine Urobilinogen Ur Leukocyte Esterase Urine RBC Urine WBC Ur Squamous Epith Cells Urine Bacteria Flui
[2021-08-12 14:16] LABS: Albumin, Body Fluid 2.3 g/dL (Not Estab.); Glucose, Body Fluid 94 mg/dL (.); LD, Body Fluid 184 IU/L (.)
== END 2021-08-12 11:04 | disposition home or self-care (01) | DRG 193 ==
LOC: ER 11:03 → 2ND 22:32
PROVIDERS: Internal Medicine Pulmonary Disease; Nurse Practitioner Family; Admitting Provider Emergency Medicine; Emergency Provider Emergency Medicine; PCP Emergency Medicine; Visit Provider Emergency Medicine
DX: J18.9 Pneumonia, unspecified organism (principal); J96.21 Acute and chronic respiratory failure with hypoxia; J96.92 Respiratory failure, unspecified with hypercapnia; J90 Pleural effusion, not elsewhere classified; Z68.41 Body mass index [BMI] 40.0-44.9, adult; J98.11 Atelectasis; J43.9 Emphysema, unspecified; I10 Essential (primary) hypertension; Z20.822 Contact with and (suspected) exposure to COVID-19; F17.210 Nicotine dependence, cigarettes, uncomplicated; F32.A Depression, unspecified; E78.5 Hyperlipidemia, unspecified; G43.909 Migraine, unspecified, not intractable, without status migrainosus; E66.9 Obesity, unspecified; F41.9 Anxiety disorder, unspecified
CPT/HCPCS: 32555; 36415; 71045; 71250; 80048; 80053; 81001; 82042; 82803; 82945; 83615; 83690; 83880; 84145; 84155; 84484; 85025; 86140; 87070; 87205; 88112; 88305; 88342; 89051; 93005; 94640; 94760; 96365; 96366; 96375; 97162; 97166; 99284; C9803; J0456; J0696; U0003; U0005

== ENCOUNTER 2021-08-24 18:04 | Emergency (ER) | payer MEDICAID, SELFPAY ==
[2021-08-24 18:04] VITALS: BP 98/50; PULSE 94; RESP 16; TEMP 37; O2SAT 94; BMI 34.3
--- NOTE | 2021-08-24 18:15 | XR_ITS ---
PROCEDURE INFORMATION: Exam: XR Chest Exam date and time: 08/24/2021 6:15 PM Age: 50 years old Clinical indication: Other: Near syncopal episode; Additional info: Near syncope TECHNIQUE: Imaging protocol: XR of the chest. Views: 1 view. COMPARISON: CR XR CHEST PORTABLE 08/11/2021 4:51 AM FINDINGS: Lungs: Improved aeration in the lower right lung compared with 08/11/2021 chest radiograph, with small patchy airspace opacity remaining. No new or worsening airspace opacities. No appreciable pulmonary edema. Pleural spaces: No large pleural effusion. No pneumothorax. Heart/Mediastinum: Cardiomediastinal silhouette is unchanged. Bones/joints: No acute osseous abnormality. Soft tissues: Unremarkable. IMPRESSION: Improved aeration in the lower right lung compared with 08/11/2021 chest radiograph, with small patchy airspace opacity remaining. No new or worsening airspace opacities.
--- NOTE | 2021-08-24 18:16 | HMH.EDGENADL ---
ED Disposition Clinical Impression: Near syncope Disposition: Home, Self-Care Condition on Discharge: Good Instructions: DI for Syncope in Adults (Fainting) Additional Instructions: follow up pcp, return for worse Referrals: Jared Pak MD [Primary Care Provider] - - Critical Care Critical Care Time: No Attestation: On , the high probability of a clinically significant, sudden or life threatening deterioration of the following system(s) required my full and direct attention, intervention and personal management. The time I documented below is in addition to time spent performing reported procedures but includes the following listed in this critical care notation. Medical Decision Making - Vlad Inquiry Pt receiving controlled substance: No Vital Signs: 08/24/21 18:04 Temperature 98.6 F Temperature Source Oral Pulse Rate [Right] 94 H Respiratory Rate 16 Blood Pressure [Right Arm] 98/50 L Blood Pressure Mean [Right Arm] 66 Blood Pressure Source [Right Arm] Automatic Cuff Blood Pressure Position [Right Arm] Sitting 02 Sat by Pulse Oximetry 94 L Oxygen Delivery Method Room Air - Lab Data Lab Results 08/24/21 18:50: WBC 5.1, RBC 4.80, Hgb 14.1, Hct 45.5, MCV 94.8, MCH 29.3, MCHC 31.0 L, RDW 14.9, Plt Count 130 L, MPV 10.0, Neut % (Auto) 54.1, Lymph % (Auto) 32.0, [place] % (Auto) 9.6 H, Eos % (Auto) 2.8, Baso % (Auto) 1.5, Neut # (Auto) 2.7, Lymph # (Auto) 1.6, [place] # (Auto) 0.5, Eos # (Auto) 0.1, Baso # (Auto) 0.1 08/24/21 18:50: Sodium 139, Potassium 3.8, Chloride 101, Carbon Dioxide 32 H, Anion Gap 9.8, BUN 15, Creatinine 0.70, Estimated GFR 89, Est GFR ( Amer) 107, Glucose 109 H, Calcium 8.4, Total Bilirubin 0.5, AST 100 H, ALT 40, Alkaline Phosphatase 117, Total Protein 7.1, Albumin 3.6, Globulin 3.5 H, Albumin/Globulin Ratio 1.0 L Result diagrams: 08/24/21 18:50 08/24/21 18:50 Orders (Tests/Meds): ED MEDICATIONS Generic Name Dose Route Start Last Admin Trade Name Caitlyn PRN Reason Stop Dose Admin Sodium Chloride 1,000 mls @ 999 mls/hr 08/24/21 18:15 08/24/21 18:54 Sod Chlor 0.9% 1000ml Bag IV 08/24/21 19:15 999 mls/hr .Q1H1M SHARRI Administration Sodium Chloride 10 ml 08/24/21 18:14 Sodium Chloride 0.9% 10ml Flush Syringe IV 08/25/21 06:14 NEEDED PRN Maintain IV Site ORDERS Category Date Time Status Covid-19 Nasal PCR ([facility]) Routine Lab 08/24/21 18:15 Ordered EKG Request [ECG Request by Dr/Nse] Stat Y 08/24/21 18:15 Ordered Medical Decision Narrative: reeval, appears well, vss, ok with plan to f/u pcp General Adult HPI - General Stated complaint: FALL Time Seen by Provider: 08/24/21 18:16 Source of Information: Patient, EMS Limitations: baseline ms impaired - History of Present Illness HPI narrative: from [facility] with apparent near syncope w/o injury Radiation: non-radiation Severity: moderate Consistency: now resolved Relieving factors: none Exacerbating factors: none Associated symptoms: denies other symptoms - Related Data Home Medications Medication Instructions Recorded Confirmed dextromethorphan 20 mg-quinidine 1 cap PO Q12H 11/24/20 08/08/21 10 mg capsule ergocalciferol (vitamin D2) 1,250 1,250 mcg PO SA 11/24/20 08/09/21 mcg (50,000 unit) capsule loperamide 2 mg tablet 2 mg PO Q3H PRN 11/24/20 08/08/21 loratadine 10 mg tablet 10 mg PO DAILY 11/24/20 08/08/21 omeprazole 40 mg capsule,delayed 40 mg PO AM 11/24/20 08/09/21 release prazosin 1 mg capsule 1 mg PO HS 11/24/20 08/08/21 sertraline 100 mg tablet 200 mg PO DAILY 11/24/20 08/08/21 benztropine 0.5 mg tablet 0.5 mg PO BID 02/13/21 08/08/21 bupropion HCl 150 mg 24 hr tablet, 150 mg PO AM 07/16/21 01/09/22 extended release divalproex 250 mg tablet,delayed 250 mg PO TID 02/13/21 08/09/21 release promethazine 25 mg tablet 25 mg PO Q6HP PRN 02/13/21 08/09/21 Buspirone HCl [Buspirone 30mg 30 mg PO BID 04/01/21 08/08/21 Tablets] Walter
--- NOTE | 2021-08-24 18:55 | PC.NURSE ---
PT AMBULATED UP TO BATHROOM WITH NO COMPLAINTS
[2021-08-24 19:03] LABS: Basophils # 0.1 K/mm3 (0-0.2); Basophils % 1.5 % (0.1-2.0); Eosinophils # 0.1 K/mm3 (0.0-0.4); Eosinophils % 2.8 % (0.1-12.0); Hematocrit 45.5 % (37.0-47.0); Hemoglobin 14.1 g/dL (12.2-16.2); Lymphocytes # 1.6 K/mm3 (0.7-4.5); Mean Corpuscular Hemoglobin 29.3 pg (27.0-31.2); Mean Corpuscular Volume 94.8 fl (81-99); Monocytes # 0.5 K/mm3 (0.1-1.0); Monocytes % 9.6 % (1.7-9.3); Neutrophils # 2.7 K/mm3 (1.8-7.8); Neutrophils % 54.1 % (37.0-80.0); Platelet Count 130 K/mm3 (142-424); Red Cell Distribution Width 14.9 % (11.5-17.5); White Blood Count 5.1 K/mm3 (4.8-10.8)
[2021-08-24 19:04] LABS: Chloride 101 mmol/L (98-107); Potassium 3.8 mmoL/L (3.5-5.1); Sodium 139 mmol/L (136-145)
[2021-08-24 19:06] LABS: Alanine Aminotransferase 40 U/L (12-78); Aspartate Amino Transferase 100 U/L (14-36); Blood Urea Nitrogen 15 mg/dl (7-17); Estimated Glomerular Filt Rate 89 ml/min (>60); GFR (African American) 107 ML/MIN (>60)
[2021-08-24 19:07] LABS: Albumin Level 3.6 g/dl (3.5-5.0); Alkaline Phosphatase 117 U/L (38-126); Anion Gap 9.8 mEq/L (5-15); Bilirubin,Total 0.5 mg/dl (0.2-1.3); Calcium 8.4 mg/dl (8.4-10.2); Carbon Dioxide 32 mmol/L (22.0-30.0); Globulin 3.5 g/dL (1.3-3.2); Glucose 109 mg/dl (74-100); Total Protein,Serum 7.1 g/dl (6.3-8.2)
--- NOTE | 2021-08-24 19:39 | PC.NURSE ---
[place] notified pt is being discharged and is ready to return
[2021-08-24 19:49] VITALS: BP 122/75; PULSE 89; RESP 18; TEMP 36.6; O2SAT 97
== END 2021-08-24 19:54 | disposition home or self-care (01) ==
PROVIDERS: Emergency Provider Emergency Medicine; PCP Emergency Medicine
DX: R55 Syncope and collapse (principal); W18.39XA Other fall on same level, initial encounter; Y92.199 Unspecified place in other specified residential institution as the place of occurrence of the external cause; I10 Essential (primary) hypertension; E78.5 Hyperlipidemia, unspecified; J44.9 Chronic obstructive pulmonary disease, unspecified; F17.210 Nicotine dependence, cigarettes, uncomplicated; Z79.899 Other long term (current) drug therapy
CPT/HCPCS: 71045; 80053; 85025; 99283

== ENCOUNTER 2021-08-30 10:59 | Emergency (ER) | payer MEDICAID, SELFPAY ==
[2021-08-30 10:59] VITALS: BP 133/83; PULSE 91; RESP 20; TEMP 37.4; O2SAT 92; BMI 32.1
--- NOTE | 2021-08-30 11:17 | XR_ITS ---
PROCEDURE INFORMATION: Exam: XR Chest Exam date and time: 08/30/2021 11:17 AM Age: 50 years old Clinical indication: Shortness of breath; Additional info: Hypoxia TECHNIQUE: Imaging protocol: XR of the chest. Views: 1 view. COMPARISON: CR XR CHEST PORTABLE 08/24/2021 6:22 PM FINDINGS: Lungs: No focal airspace disease. Pleural spaces: Unremarkable. No pleural effusion. No pneumothorax. Heart/Mediastinum: Cardiomediastinal silhouette is within normal limits. Bones/joints: Unremarkable. IMPRESSION: No acute cardiopulmonary abnormality.
--- NOTE | 2021-08-30 11:27 | ECG_ITS ---
APPROVED REPORT Exam: Resting ECG HR:81 bpm ECG Measurements Heart Rate 81 AXES NV 141 P 48 QRSd 105 QRS 64 QT 379 T 52 QTc 416 Conclusion SINUS RHYTHM NONSPECIFIC T-WAVE ABNORMALITY BORDERLINE ECG UNCONFIRMED REPORT Electronically signed by : Praful Kaufman MD 08/31/2021 17:28:08
--- NOTE | 2021-08-30 11:30 | CT_ITS ---
PROCEDURE INFORMATION: Exam: CT Cervical Spine Without Contrast Exam date and time: 08/30/2021 11:30 AM Age: 50 years old Clinical indication: Injury or trauma; Fall; Other: Pain; Sprain or strain, cervical ligaments; Additional info: Fall, neck pain with palpitation over cervical spine TECHNIQUE: Imaging protocol: Computed tomography images of the cervical spine without contrast. Radiation optimization: All CT scans at this facility use at least one of these dose optimization techniques: automated exposure control; mA and/or kV adjustment per patient size (includes targeted exams where dose is matched to clinical indication); or iterative reconstruction. COMPARISON: CT CERVICAL SPINE WO CON 03/31/2021 6:15 PM FINDINGS: Bones/joints: No acute fracture. Normal alignment. Discs/Spinal canal/Neural foramina: No significant disc protrusion. No severe spinal canal stenosis. No significant neural foraminal narrowing. Lungs: Lung apices are normal. Pleural spaces: Partially imaged right pleural effusion. Soft tissues: Unremarkable. IMPRESSION: 1. No acute fracture or malalignment. 2. Partially imaged right pleural effusion.
--- NOTE | 2021-08-30 11:30 | CT_ITS ---
PROCEDURE INFORMATION: Exam: CT Head Without Contrast Exam date and time: 08/30/2021 11:30 AM Age: 50 years old Clinical indication: Injury or trauma; Fall; Concussion/head injury; Consciousness not specified; Altered mental status/memory loss; Additional info: Multiple falls/ams TECHNIQUE: Imaging protocol: Computed tomography of the head without contrast. Radiation optimization: All CT scans at this facility use at least one of these dose optimization techniques: automated exposure control; mA and/or kV adjustment per patient size (includes targeted exams where dose is matched to clinical indication); or iterative reconstruction. COMPARISON: CT HEAD/BRAIN WO CON 03/31/2021 6:12 PM FINDINGS: Brain: Remote lacunar infarcts versus dilated perivascular spaces in the basal ganglia. No evidence of acute large vascular territory ischemia. No acute hemorrhage. No mass effect. Cerebral ventricles: No ventriculomegaly. Paranasal sinuses: Mild mucosal thickening of the bilateral maxillary sinuses, sphenoid sinuses, ethmoid air cells and frontal sinuses. Mastoid air cells: Visualized mastoid air cells are well aerated. Bones/joints: Unremarkable. No acute fracture. Soft tissues: Unremarkable. IMPRESSION: 1. No acute intracranial abnormality. Please note that MRI is more sensitive for early changes of acute ischemia. 2. Mild inflammatory paranasal sinus disease.
--- NOTE | 2021-08-30 11:38 | PC.NURSE ---
pt to CT scan
[2021-08-30 11:39] LABS: Alanine Aminotransferase 26 U/L (12-78); Albumin Level 3.8 g/dl (3.5-5.0); Albumin/Globulin Ratio 1.1 (1.1-1.8); Alkaline Phosphatase 105 U/L (38-126); Anion Gap 9.7 mEq/L (5-15); Aspartate Amino Transferase 72 U/L (14-36); Bilirubin,Total 0.8 mg/dl (0.2-1.3); Blood Urea Nitrogen 14 mg/dl (7-17); Calcium 8.8 mg/dl (8.4-10.2); Carbon Dioxide 33 mmol/L (22.0-30.0); Chloride 103 mmol/L (98-107); Creatinine Clearance Estimated 164 mL/min (50-200); Estimated Glomerular Filt Rate 131 ml/min (>60); GFR (African American) 158 ML/MIN (>60); Globulin 3.4 g/dL (1.3-3.2); Glucose 76 mg/dl (74-100); Potassium 4.7 mmoL/L (3.5-5.1); Sodium 141 mmol/L (136-145); Total Protein,Serum 7.2 g/dl (6.3-8.2)
[2021-08-30 11:46] LABS: D-Dimer 0.87 ug/mL (0.0-0.5)
--- NOTE | 2021-08-30 11:53 | PC.NURSE ---
pt returned to room from CT scan, hooked back up cardiac monitoring, and vital signs. call light within reach.
[2021-08-30 11:54] LABS: VBG Base Excess 5.1 mmol/L (-2.4-2.3); VBG HCO3 29.9 mmol/L (23-30); VBG Oxygen Saturation 92.9 % (50-70); VBG PCO2 49.1 mmol/L (35-51); VBG PO2 67.3 mmol/L (28-40); VBG Total CO2 31.4 mmol/L (23-27)
--- NOTE | 2021-08-30 11:56 | PC.NURSE ---
covid swab sent to the lab
[2021-08-30 11:57] LABS: Troponin I < 0.01 ng/ml (0.00-0.034)
--- NOTE | 2021-08-30 12:08 | PC.NURSE ---
pt stated that she had to pee ; nurse and I assisted patient to the bedpan. stepped out to give pt time and privacy to use bedpan. call light within reach.
--- NOTE | 2021-08-30 12:18 | PC.NURSE ---
pt was taken off the bedpan. no urine present, but had small amount of bowel. pt was cleaned up and repositioned in bed. Also, assisted the nurse at this time with a straight-cath to obtain a urine sample. call light within reach.
[2021-08-30 12:19] LABS: Microscopic, Urine URINE MICROSCOPIC (MICROSCOPIC)
[2021-08-30 12:27] LABS: Appearance,Urine CLEAR (Clear); Bilirubin,Urine Negative (Negative); Blood, Urine Negative (Negative); Color,Urine DK YELLOW (Yellow); Glucose,Urine (UA) Negative (Negative); Ketones,Urine TRACE (Negative); Leukocyte Esterase,Urine Negative (Negative); Nitrate,Urine Negative (Negative); Protein,Urine Negative (Negative); Specific Gravity, Urine 1.015 (1.005-1.030); Urobilinogen,Urine 0.2 EU/dl (0.2)
--- NOTE | 2021-08-30 12:35 | HMH.EDGENADL ---
ED Disposition Clinical Impression: Dyspnea and respiratory abnormalities Disposition: Xfer [facility] Not MCR Cert Condition on Discharge: Fair Referrals: Jared Pak MD [Primary Care Provider] - - Critical Care Critical Care Time: No Attestation: On 08/30/21, the high probability of a clinically significant, sudden or life threatening deterioration of the following system(s) required my full and direct attention, intervention and personal management. The time I documented below is in addition to time spent performing reported procedures but includes the following listed in this critical care notation. Medical Decision Making - Medical Records Medical records reviewed: Yes: I reviewed the patient's medical records. - Vlad Inquiry Pt receiving controlled substance: No Vital Signs: 08/30/21 10:59 08/30/21 19:29 Temperature 99.4 F 98.1 F Temperature Source Oral Pulse Rate 77 Pulse Rate [Radial] 91 H Respiratory Rate 20 18 Blood Pressure 159/83 H Blood Pressure [Right Arm] 133/83 Blood Pressure Mean [Right Arm] 99 Blood Pressure Position [Right Arm] Sitting 02 Sat by Pulse Oximetry 92 L 94 L Oxygen Delivery Method Room Air Room Air - Lab Data Lab results reviewed: Yes: I reviewed the patient's lab results. Lab Results 08/30/21 11:18: VBG pH 7.40, VBG pCO2 49.1, VBG pO2 67.3 H, VBG HCO3 29.9, VBG Total CO2 31.4 H, VBG O2 Saturation 92.9 H, VBG Base Excess 5.1 H 08/30/21 11:20: WBC 5.4, RBC 4.80, Hgb 13.9, Hct 44.1, MCV 91.7, MCH 28.9, MCHC 31.5 L, RDW 14.3, Plt Count 110 L, MPV 10.9 H, Neut % (Auto) 54.2, Lymph % (Auto) 35.6, [place] % (Auto) 8.2, Eos % (Auto) 1.5, Baso % (Auto) 0.5, Neut # (Auto) 2.9, Lymph # (Auto) 1.9, [place] # (Auto) 0.5, Eos # (Auto) 0.1, Baso # (Auto) 0.0 08/30/21 11:20: D-Dimer 0.87 H 08/30/21 11:20: Sodium 141, Potassium 4.7, Chloride 103, Carbon Dioxide 33 H, Anion Gap 9.7, BUN 14, Creatinine 0.50 L, Estimated Creat Clear 164, Estimated GFR 131, Est GFR ( Amer) 158, Glucose 76, Calcium 8.8, Total Bilirubin 0.8, AST 72 H, ALT 26, Alkaline Phosphatase 105, Troponin I < 0.01, Total Protein 7.2, Albumin 3.8, Globulin 3.4 H, Albumin/Globulin Ratio 1.1 08/30/21 11:20: Lactate 1.8 08/30/21 12:10: Urine Color Dk yellow, Urine Appearance Clear, Urine pH 6.0, Ur Specific [place] 1.015, Urine Protein Negative, Urine Glucose (UA) Negative, Urine Ketones Trace, Urine Blood Negative, Urine Nitrate Negative, Urine Bilirubin Negative, Urine Urobilinogen 0.2, Ur Leukocyte Esterase Negative, Urine RBC Occasional, Urine WBC Occasional, Ur Renal Epithelial Cell Occasional 08/30/21 18:15: Troponin I 0.01 Result diagrams: 08/30/21 11:20 08/30/21 11:20 Orders (Tests/Meds): ORDERS Category Date Time Status CTA Chest [CT angio chest PE protocol] Stat Cat Scan 08/30/21 13:46 Ordered Covid-19 Nasal PCR ([facility]) Routine Lab 08/30/21 11:55 Received Troponin I Q3H Lab 08/30/21 21:15 Ordered Blood Culture Stat Micro 08/30/21 11:18 Ordered ECG Request by /Luis Angel Stat Y 08/30/21 11:18 Ordered - Radiology Data #1 Image(s): Chest FINDINGS: Lungs: No focal airspace disease. Pleural spaces: Unremarkable. No pleural effusion. No pneumothorax. Heart/Mediastinum: Cardiomediastinal silhouette is within normal limits. Bones/joints: Unremarkable. IMPRESSION: No acute cardiopulmonary abnormality. - CT Data Findings Narrative: CT Head IMPRESSION: 1. No acute intracranial abnormality. Please note that MRI is more sensitive for early changes of acute ischemia. 2. Mild inflammatory paranasal sinus disease. CT C spine: IMPRESSION: 1. No acute fracture or malalignment. 2. Partially imaged right pleural effusion. Medical Decision Narrative: Patient is a 50-year-old female presenting from a snf facility for chief complaint of frequent falls and hypoxia of 84% on room air. Per report, patient has also been having cough and shortness of breath. Patien
[2021-08-30 12:46] LABS: RBC,Urine Occasional #/hpf (0-3); Renal Epithelial Cells,Urine Occasional #/lpf (0); WBC,Urine Occasional #/hpf (0-3)
[2021-08-30 12:56] LABS: Lactic Acid 1.8 mmol/L (0.7-2.1)
--- NOTE | 2021-08-30 13:09 | PC.NURSE ---
patient asked to be placed back on the bedpan. eder Ortiz helped me place her on bedpan at this time. Pt stated that she would let us know when she is finished. Call light within reach.
--- NOTE | 2021-08-30 13:21 | PC.NURSE ---
got patient off of bedpan at this time. had another medium amount of semi-loose stool. patient was pulled up in bed and call light was put in patient reach.
--- NOTE | 2021-08-30 13:37 | PC.NURSE ---
went into patient room to check on blood pressure, switched the patient's blood pressure cuff from regular adult to a large adult cuff and pressure was 148/96. patient tolerated well. call light within reach. nothing needed at this time.
--- NOTE | 2021-08-30 14:07 | XR_ITS ---
PROCEDURE INFORMATION: Exam: XR Left Hip Exam date and time: 08/30/2021 2:07 PM Age: 50 years old Clinical indication: Hip pain; Left hip; Additional info: Pain S/P fall TECHNIQUE: Imaging protocol: XR Left hip. Views: 2 or 3 views hip with pelvis when performed. COMPARISON: CR XR HIP LT 2-3V W/PELVIS 03/31/2021 6:22 PM FINDINGS: Bones/joints: Degenerative changes in both hips. There is no evidence of acute fracture.There is no evidence of malalignment or dislocation. Soft tissues: Unremarkable. IMPRESSION: There is no evidence of acute fracture.There is no evidence of malalignment or dislocation.
--- NOTE | 2021-08-30 14:12 | PC.NURSE ---
pt to CT scan
[2021-08-30 14:20] LABS: Basophils % 0.5 % (0.1-2.0); Eosinophils # 0.1 K/mm3 (0.0-0.4); Eosinophils % 1.5 % (0.1-12.0); Hematocrit 44.1 % (37.0-47.0); Hemoglobin 13.9 g/dL (12.2-16.2); Lymphocytes # 1.9 K/mm3 (0.7-4.5); Lymphocytes % 35.6 % (10-50); Mean Corpuscular HGB Conc 31.5 g/dL (31.8-35.4); Mean Corpuscular Hemoglobin 28.9 pg (27.0-31.2); Mean Corpuscular Volume 91.7 fl (81-99); Mean Platelet Volume 10.9 fl (7.4-10.4); Monocytes # 0.5 K/mm3 (0.1-1.0); Monocytes % 8.2 % (1.7-9.3); Neutrophils # 2.9 K/mm3 (1.8-7.8); Neutrophils % 54.2 % (37.0-80.0); Platelet Count 110 K/mm3 (142-424); Red Cell Distribution Width 14.3 % (11.5-17.5); White Blood Count 5.4 K/mm3 (4.8-10.8)
--- NOTE | 2021-08-30 14:32 | PC.NURSE ---
pt returned to room from CT scan
--- NOTE | 2021-08-30 14:42 | PC.NURSE ---
C-collar was removed by me at this time per MD request.
--- NOTE | 2021-08-30 15:50 | PC.NURSE ---
pt very difficult iv access
--- NOTE | 2021-08-30 17:45 | PC.NURSE ---
Pt taken to CT scan at this time.
--- NOTE | 2021-08-30 18:00 | PC.NURSE ---
Pt is back from CT scan at this time.
--- NOTE | 2021-08-30 18:44 | PC.NURSE ---
lab is bedside
--- NOTE | 2021-08-30 18:54 | PC.NURSE ---
pt to CT scan
--- NOTE | 2021-08-30 19:22 | HMH.ITSTN ---
Carmita BRAVO and MD Flanagan aware of extravasation to Rt arm.
[2021-08-30 19:25] LABS: Troponin I 0.01 ng/ml (0.00-0.034)
[2021-08-30 19:29] VITALS: BP 159/83; PULSE 77; RESP 18; TEMP 36.7; O2SAT 94
--- NOTE | 2021-08-30 19:53 | PC.NURSE ---
Report called to [facility] at this time by LAWRENCE Harris
[2021-08-30 20:04] VITALS: BP 159/83; PULSE 77; RESP 18; TEMP 36.8; O2SAT 95
--- NOTE | 2021-08-30 20:08 | PC.NURSE ---
pt lines removed pt did have an infiltration from contrast it was a small amount when it was caught. a warm compress was added and there was minimal swelling when discharged.
== END 2021-08-30 20:21 ==
PROVIDERS: Emergency Provider Emergency Medicine; PCP Emergency Medicine
DX: R06.09 Other forms of dyspnea (principal); M25.552 Pain in left hip; M54.2 Cervicalgia; W01.0XXA Fall on same level from slipping, tripping and stumbling without subsequent striking against object, initial encounter; Y92.129 Unspecified place in nursing home as the place of occurrence of the external cause; U07.1 COVID-19; F41.8 Other specified anxiety disorders; F20.9 Schizophrenia, unspecified; I10 Essential (primary) hypertension; E78.5 Hyperlipidemia, unspecified; F17.210 Nicotine dependence, cigarettes, uncomplicated; J44.9 Chronic obstructive pulmonary disease, unspecified; Z79.899 Other long term (current) drug therapy
CPT/HCPCS: 70450; 71045; 72125; 73502; 80053; 81001; 82803; 83605; 84484; 85025; 85378; 93005; 99283; C9803; U0003; U0005

== ENCOUNTER 2021-09-29 11:31 | Emergency (ER) | payer MEDICAID, SELFPAY ==
[2021-09-29 11:45] VITALS: PULSE 105; RESP 20; O2SAT 95; BMI 34.3
[2021-09-29 11:50] VITALS: BP 145/97; PULSE 107; RESP 18; TEMP 36.7; O2SAT 97; BMI 35.3
--- NOTE | 2021-09-29 11:59 | XR_ITS ---
FINAL REPORT CLINICAL HISTORY: FALL FINDINGS: LEFT HUMERUS Three views demonstrate a comminuted fracture of the surgical neck of the humerus. There is a separate greater tuberosity fracture fragment. The fracture fragment is partially impacted. There is medial displacement of the distal humerus. There are mild degenerative changes of the acromioclavicular joint. No soft tissue abnormality is seen. IMPRESSION: Humerus fracture as described. Reviewed, Interpreted and Dictated by Tone Hsu III, MD Transcribed by Massiel Champagne Authenticated by Tone Hsu III, MD on 09/29/2021 01:09:52 PM [facility]
--- NOTE | 2021-09-29 11:59 | XR_ITS ---
FINAL REPORT CLINICAL HISTORY: FALL FINDINGS: LEFT SHOULDER Three views demonstrate a comminuted fracture of the surgical neck of the humerus. There is a separate greater tuberosity fracture fragment. The fracture fragment is partially impacted. There is medial displacement of the distal humerus. There are mild degenerative changes of the acromioclavicular joint. No soft tissue abnormality is seen. IMPRESSION: No acute process. Reviewed, Interpreted and Dictated by Tone Hsu III, MD Transcribed by Massiel Champagne Authenticated by Tone Hsu III, MD on 09/29/2021 01:09:51 PM [facility]
--- NOTE | 2021-09-29 12:09 | PC.NURSE ---
pt in xray
--- NOTE | 2021-09-29 12:17 | HMH.EDUTC ---
[facility] [place] Clinical Impression: Humerus head fracture Qualifiers: Encounter type: initial encounter Fracture type: closed Laterality: left Qualified Code(s): S42.292A - Other displaced fracture of upper end of left humerus, initial encounter for closed fracture Disposition: Home, Self-Care Condition on Discharge: Good Instructions: How to Use a Sling, Fracture, How To Perform RICE (Rest, Ice, Compress, Elevate) Additional Instructions: *RICE, Rest the extremity, Ice 15-20 minutes 3-4 times daily, Compress- wear the alvin wrap as discussed as much as possible to help reduce swelling and pain, Elevate the extremity when at rest *Alvin wrap is for support and help control swelling, use it except in the shower. Be sure that is not to tight but not to loose either *Elevate when resting *Ibuprofen every 6-8 hours as needed for pain an inflammation. If need something more can take Tylenol in between doses of Ibuprofen to help Immediately follow up with your family doctor for new or worsening of symptoms, or no noticeable improvement over the next 3-[address] Riley office tomorrow for appointment Return if needed Straight to ER if any life threatening symptoms Sleeping in recliner may help with pain in shoulder/upper arm Prescriptions: Ibuprofen [Ibuprofen 600mg Tablet] 600 mg PO Q6HP PRN #20 tab PRN Reason: Moderate Pain Transmission Status: Received by [email or web address] #[id number] Referrals: Jared Pak MD [Primary Care Provider] - As needed Derrell Monroe MD [Staff Physician] - As needed (Call tomorrow for appointment) Time of Disposition: 13:41 Medical Decision Making - Vlad Inquiry Pt receiving controlled substance: No Vlad was queried for this patient: No Vital Signs: 09/29/21 11:45 09/29/21 11:50 09/29/21 13:55 Temperature 98.0 F 98.0 F Temperature Source Oral Oral Pulse Rate 100 H Pulse Rate [Left Radial] 105 H 107 H Respiratory Rate 20 18 16 Blood Pressure 145/97 H Blood Pressure [Right Arm] 145/97 H Blood Pressure Mean [Right Arm] 113 Blood Pressure Source Automatic Cuff Blood Pressure Source [Right Arm] Automatic Cuff Blood Pressure Position Sitting Blood Pressure Position [Right Arm] Sitting 02 Sat by Pulse Oximetry 95 97 Oxygen Delivery Method Room Air Room Air Room Air Orders (Tests/Meds): ED MEDICATIONS Discontinued Medications Generic Name Dose Route Start Last Admin Trade Name Caitlyn PRN Reason Stop Dose Admin Ibuprofen 600 mg 09/29/21 13:44 09/29/21 13:50 Ibuprofen 600 Mg Tablet PO 09/29/21 13:45 600 mg ONCE ONE Administration - Radiology Data #1 Image(s): Shoulder Image Reviewed: Yes I have reviewed radiologist's interpretation IMPRESSION: No acute process. #2 Image(s): Humerus Image Reviewed: Yes I have reviewed radiologist's interpretation LEFT HUMERUS Three views demonstrate a comminuted fracture of the surgical neck of the humerus. There is a separate greater tuberosity fracture fragment. The fracture fragment is partially impacted. There is medial displacement of the distal humerus. There are mild degenerative changes of the acromioclavicular joint. No soft tissue abnormality is seen. IMPRESSION: Humerus fracture as described. - Physician Consults Physician Consulted: Dr Monroe Time: 12:17 Reason -: Orthopedic Eval/Care Comment/Response: Called Dr Monroe's office spoke with BJ will have Dr Monroe view xray and call back to the [facility] Spoke with Dr Monroe he advised to place in sling and have them RICE and call office in morning for appointment [facility] [place] HPI - General Stated complaint: AO [id number] left arm injury,home Time Seen by Provider: 09/29/21 12:18 Mode of Arrival: Wheelchair Source of Information: Patient, Relative Limitations: No Limitations Description of Symptoms (Recalled from Triage Doc. by RN): pt c/o LUE pain, swelling and bruising noted to L humerus area. Pt sister reports pt luther
--- NOTE | 2021-09-29 12:53 | PC.NURSE ---
waiting nutrition associate back from Dr. Monroe pt and family member are aware
[2021-09-29 13:55] VITALS: BP 145/97; PULSE 100; RESP 16; TEMP 36.7; O2SAT 98
== END 2021-09-29 13:57 | disposition home or self-care (01) ==
PROVIDERS: Emergency Provider Nurse Practitioner; PCP Emergency Medicine
DX: S42.292A Other displaced fracture of upper end of left humerus, initial encounter for closed fracture (principal); V58.4XXA Person boarding or alighting a pick-up truck or van injured in noncollision transport accident, initial encounter; Y92.89 Other specified places as the place of occurrence of the external cause; F17.210 Nicotine dependence, cigarettes, uncomplicated
CPT/HCPCS: 73030; 73060; 99212; G0463

== ENCOUNTER → 2021-10-08 11:12 | Outpatient (CLI) | payer MEDICAID, SELFPAY ==
--- NOTE | 2021-10-08 11:16 | CT_ITS ---
FINAL REPORT TECHNIQUE: After the administration of intravenous contrast, axial images were obtained through the abdomen and pelvis by computed tomography. This study was performed with technique to keep radiation doses as low as reasonably achievable, (ALARA). Individualized dose reduction techniques using automated exposure control or adjustment of the MA and/or KV according to the patient's size were employed. CLINICAL HISTORY: abdominal pain COMPARISON: 01/20/2019 FINDINGS: Abdomen: The lung bases demonstrate mild atelectasis or scarring on the right. The liver is normal in size and attenuation. Patient is status post cholecystectomy. There is mild biliary ductal dilatation, favor post cholecystectomy change. The spleen is unremarkable. The adrenals are normal. The pancreas is unremarkable. The kidneys enhance appropriately. The aorta is normal in caliber. There is no free fluid or adenopathy. Postoperative changes are seen to the anterior abdominal wall and pelvic wall. Pelvis: The appendix is not identified. Patient is status post hysterectomy. The urinary bladder is unremarkable. There is no free fluid or adenopathy. IMPRESSION: Mild biliary ductal dilatation, favor post cholecystectomy change. Otherwise, no acute process. Reviewed, Interpreted and Dictated by Tone Hsu III, MD Transcribed by Capri Cabrales Authenticated by Tone Hsu III, MD on 10/08/2021 01:26:21 PM [facility]
--- NOTE | 2021-10-08 11:16 | CT_ITS ---
FINAL REPORT TECHNIQUE: Axial imaging of the left humerus was obtained without contrast. Reformatted images were also obtained and reviewed.This study was performed with techniques to keep radiation doses as low as reasonably achievable, (ALARA). Individualized dose reduction technique using automated exposure control or adjustment of mA and/or kV according to the patient's size were employed. CLINICAL HISTORY: Humerus fracture FINDINGS: There is a severely comminuted fracture of the humeral head and neck with posterior rotation of the main humeral head fragment. Main distal fracture fragment is displaced anteriorly approximately 25 mm. Multiple small adjacent fracture fragments are seen with surrounding fluid. Small bony fragments are seen in the glenohumeral joint with presumed hemorrhage or edema in the anterior deltoid. IMPRESSION: Comminuted fracture of the humeral head and neck with rotation of the main humeral head fragment and displacement of the distal fracture fragment anteriorly. Reviewed, Interpreted and Dictated by Tone Hsu III, MD Transcribed by Capri Cabrales Authenticated by Tone Hsu III, MD on 10/08/2021 01:06:44 PM [facility]
== END ==
PROVIDERS: PCP Emergency Medicine; Visit Provider Orthopaedic Surgery
DX: R10.9 Unspecified abdominal pain (principal); S42.212D Unspecified displaced fracture of surgical neck of left humerus, subsequent encounter for fracture with routine healing
CPT/HCPCS: 73200; 74177; Q9967

== ENCOUNTER 2021-10-13 18:05 | Emergency (ER) | payer MEDICAID, SELFPAY ==
--- NOTE | 2021-10-13 18:18 | XR_ITS ---
PROCEDURE INFORMATION: Exam: XR Right Shoulder Exam date and time: 10/13/2021 6:18 PM Age: 50 years old Clinical indication: Pain; Shoulder; Right; Additional info: Fall TECHNIQUE: Imaging protocol: XR Right shoulder. Views: 2 or more views. COMPARISON: CR XR CHEST PORTABLE 08/30/2021 11:48 AM FINDINGS: Bones/joints: Acute, displaced multi fragmentary fracture of the right proximal humeral diametaphysis. Moderate degenerative changes of the right acromioclavicular joint, with joint space narrowing and osteophyte formation. No dislocation. Soft tissues: Probable small amount of edema and/or hemorrhage in the soft tissues adjacent to the fracture. IMPRESSION: Acute, displaced multi fragmentary fracture of the right proximal humeral diametaphysis.
--- NOTE | 2021-10-13 18:18 | XR_ITS ---
PROCEDURE INFORMATION: Exam: XR Right Clavicle, Complete Exam date and time: 10/13/2021 6:18 PM Age: 50 years old Clinical indication: Pain; Shoulder; Right; Additional info: Fall TECHNIQUE: Imaging protocol: XR Right clavicle complete. Views: Any number of views. COMPARISON: CR XR SHOULDER RT MIN 2V 10/13/2021 6:24 PM FINDINGS: Bones/joints: Moderate degenerative changes of the right acromioclavicular joint, manifest by joint space narrowing and osteophyte formation. Multilevel thoracic spine degenerative disc disease visualized. Acute, displaced, multi fragmentary fracture of the right proximal humeral diametaphysis. No dislocation. Soft tissues: Normal. IMPRESSION: Acute, displaced, multi fragmentary fracture of the right proximal humeral diametaphysis.
--- NOTE | 2021-10-13 19:13 | HMH.EDUTC ---
[facility] [place] Disposition Condition on Discharge: Fair Time of Disposition: 19:50 <Dickson Roy - Last Filed: 10/13/21 19:44> <Jared Pak - Last Filed: 10/13/21 22:27> Clinical Impression: Closed right humeral fracture Qualifiers: Encounter type: initial encounter Humerus Location: surgical neck Fracture morphology: unspecified fracture morphology Fracture alignment: displaced Qualified Code(s): S42.211A - Unspecified displaced fracture of surgical neck of right humerus, initial encounter for closed fracture Disposition: Home, Self-Care Instructions: DI for Humeral Fracture Additional Instructions: ice and call ortho for follow up Referrals: Jared Pak MD [Primary Care Provider] - Derrell Monroe MD [Staff Physician] - Medical Decision Making - Medical Records Medical records reviewed: No: I reviewed the patient's medical records. - Vlad Inquiry Pt receiving controlled substance: No - Radiology Data #1 Image(s): Shoulder Image Reviewed: Yes I reviewed the patient's radiology image, Yes I have reviewed radiologist's interpretation Preliminary Findings: Abnormal <Dickson Roy - Last Filed: 10/13/21 19:44> - Lab Data Lab results reviewed: Yes: I reviewed the patient's lab results. Result diagrams: 10/13/21 20:00 10/13/21 21:26 - Physician Consults Physician Consulted: gabby Reason -: Pt condition <Jared Pak - Last Filed: 10/13/21 22:27> Vital Signs: 10/13/21 19:20 10/13/21 20:00 Temperature 98.6 F 98.4 F Temperature Source Oral Oral Pulse Rate [Left] 104 H 117 H Respiratory Rate 18 22 Blood Pressure [Right Arm] 139/86 122/84 Blood Pressure Mean [Right Arm] 103 96 02 Sat by Pulse Oximetry 99 99 - Lab Data Lab Results 10/13/21 20:00: WBC 10.6, RBC 3.98 L, Hgb 12.1 L, Hct 39.6, MCV 99.6 H, MCH 30.5, MCHC 30.6 L, RDW 17.6 H, Plt Count 578 H, MPV 8.0, Neut % (Auto) 64.2, Lymph % (Auto) 26.7, [place] % (Auto) 6.7, Eos % (Auto) 0.6, Baso % (Auto) 1.8, Neut # (Auto) 6.8, Lymph # (Auto) 2.9, [place] # (Auto) 0.7, Eos # (Auto) 0.1, Baso # (Auto) 0.2, ESR 26 H 10/13/21 20:00: Sodium 136, Potassium 6.3 H*, Chloride 104, Carbon Dioxide 25, Anion Gap 13.3, BUN 14, Creatinine 0.60, Estimated Creat Clear 169, Estimated GFR 106, Est GFR ( Amer) 128, Glucose 122 H, Calcium 7.7 L, Total Bilirubin 1.8 H, AST 75 H, ALT 21, Alkaline Phosphatase 156 H, C-Reactive Protein 49.6 H, Total Protein 7.8, Albumin 3.9, Globulin 3.9 H, Albumin/Globulin Ratio 1.0 L 10/13/21 21:26: Potassium 4.6 D Orders (Tests/Meds): ED MEDICATIONS Generic Name Dose Route Start Last Admin Trade Name Freq PRN Reason Stop Dose Admin Sodium Chloride 1,000 mls @ 999 mls/hr 10/13/21 20:15 10/13/21 20:10 Sod Chlor 0.9% 1000ml Bag IV 10/13/21 21:15 999 mls/hr .Q1H1M SHARRI Administration Discontinued Medications Generic Name Dose Route Start Last Admin Trade Name Freq PRN Reason Stop Dose Admin Acetaminophen/Codeine Phosphate 1 baltazar 10/13/21 22:20 Acetaminophen 300mg W/Codeine 30mg Take Home Pack (6) PO 10/13/21 22:21 ONCE ONE Hydrocodone Bitart/Acetaminophen 1 tab 10/13/21 22:01 10/13/21 22:03 Hydrocodone/Apap 5/325 Mg Tablet PO 10/13/21 22:02 1 tab ONCE ONE Administration Morphine Sulfate 4 mg 10/13/21 20:04 10/13/21 20:09 Morphine 4mg/Ml Syringe IV 10/13/21 20:05 4 mg ONCE ONE Administration Ondansetron HCl 4 mg 10/13/21 20:04 10/13/21 20:09 Ondansetron 4mg/2ml Vial IV 10/13/21 20:05 4 mg ONCE ONE Administration - Radiology Data #1 PROCEDURE INFORMATION: Exam: XR Right Shoulder Exam date and time: 10/13/2021 6:18 PM Age: 50 years old Clinical indication: Pain; Shoulder; Right; Additional info: Fall TECHNIQUE: Imaging protocol: XR Right shoulder. Views: 2 or more views. COMPARISON: CR XR CHEST PORTABLE 08/30/2021 11:48 AM FINDINGS: Bones/joints: Acute, displaced multi fragmentary fracture of the right proximal h
[2021-10-13 19:20] VITALS: BP 139/86; PULSE 104; RESP 18; TEMP 37; O2SAT 99; BMI 31.9
[2021-10-13 20:00] VITALS: BP 122/84; PULSE 117; RESP 22; TEMP 36.9; O2SAT 99; BMI 31.8
[2021-10-13 20:31] LABS: Basophils # 0.2 K/mm3 (0-0.2); Basophils % 1.8 % (0.1-2.0); Eosinophils # 0.1 K/mm3 (0.0-0.4); Eosinophils % 0.6 % (0.1-12.0); Hematocrit 39.6 % (37.0-47.0); Hemoglobin 12.1 g/dL (12.2-16.2); Lymphocytes # 2.9 K/mm3 (0.7-4.5); Lymphocytes % 26.7 % (10-50); Mean Corpuscular HGB Conc 30.6 g/dL (31.8-35.4); Mean Corpuscular Hemoglobin 30.5 pg (27.0-31.2); Mean Corpuscular Volume 99.6 fl (81-99); Monocytes # 0.7 K/mm3 (0.1-1.0); Monocytes % 6.7 % (1.7-9.3); Neutrophils # 6.8 K/mm3 (1.8-7.8); Neutrophils % 64.2 % (37.0-80.0); Platelet Count 578 K/mm3 (142-424); Red Blood Count 3.98 M/mm3 (4.20-5.40); Red Cell Distribution Width 17.6 % (11.5-17.5); White Blood Count 10.6 K/mm3 (4.8-10.8)
[2021-10-13 20:33] LABS: Chloride 104 mmol/L (98-107); Sodium 136 mmol/L (136-145)
[2021-10-13 20:36] LABS: Alanine Aminotransferase 21 U/L (12-78); Albumin Level 3.9 g/dl (3.5-5.0); Alkaline Phosphatase 156 U/L (38-126); Anion Gap 13.3 mEq/L (5-15); Aspartate Amino Transferase 75 U/L (14-36); Bilirubin,Total 1.8 mg/dl (0.2-1.3); Blood Urea Nitrogen 14 mg/dl (7-17); Carbon Dioxide 25 mmol/L (22.0-30.0); Creatinine Clearance Estimated 169 mL/min (50-200); Estimated Glomerular Filt Rate 106 ml/min (>60); GFR (African American) 128 ML/MIN (>60); Globulin 3.9 g/dL (1.3-3.2); Total Protein,Serum 7.8 g/dl (6.3-8.2)
[2021-10-13 20:37] LABS: Calcium 7.7 mg/dl (8.4-10.2); Glucose 122 mg/dl (74-100)
[2021-10-13 20:42] LABS: C-Reactive Protein 49.6 mg/L (0-4)
[2021-10-13 20:58] LABS: Potassium 6.3 mmoL/L (3.5-5.1)
[2021-10-13 21:47] LABS: Erythrocyte Sedimentation Rate 26 mm/hr (0-20)
[2021-10-13 21:54] LABS: Potassium 4.6 mmoL/L (3.5-5.1)
--- NOTE | 2021-10-13 22:13 | PC.NURSE ---
zachariah on phone with dr smyth @ this time
[2021-10-13 22:21] VITALS: BP 134/74; PULSE 97; RESP 18; TEMP 36.9; O2SAT 99
== END 2021-10-13 22:31 | disposition home or self-care (01) ==
LOC: UTC 18:12 → ER 19:46
PROVIDERS: Emergency Provider Nurse Practitioner Family; PCP Emergency Medicine
DX: S42.211A Unspecified displaced fracture of surgical neck of right humerus, initial encounter for closed fracture (principal); M79.601 Pain in right arm; I10 Essential (primary) hypertension; E78.5 Hyperlipidemia, unspecified; G43.909 Migraine, unspecified, not intractable, without status migrainosus; E66.9 Obesity, unspecified; J44.9 Chronic obstructive pulmonary disease, unspecified; F20.9 Schizophrenia, unspecified; F31.9 Bipolar disorder, unspecified; F41.9 Anxiety disorder, unspecified; Z79.51 Long term (current) use of inhaled steroids; Z79.899 Other long term (current) drug therapy; Z91.018 Allergy to other foods; Z82.49 Family history of ischemic heart disease and other diseases of the circulatory system; Z83.3 Family history of diabetes mellitus; Z83.438 Family history of other disorder of lipoprotein metabolism and other lipidemia; Z68.31 Body mass index [BMI] 31.0-31.9, adult; W17.89XA Other fall from one level to another, initial encounter
CPT/HCPCS: 36415; 73000; 73030; 80053; 84132; 85025; 85651; 86140; 96360; 99284; J2405

== ENCOUNTER → 2021-10-20 10:30 | Outpatient (CLI) | payer MEDICAID, SELFPAY ==
--- NOTE | 2021-10-20 10:40 | XR_ITS ---
FINAL REPORT CLINICAL HISTORY: humerus fracture COMPARISON: September 29, 2021 FINDINGS: LEFT HUMERUS 2 views were obtained. There is a comminuted, moderately impacted and displaced fracture through the surgical neck of the humerus. There is widening of the glenohumeral joint space and the subacromial space. IMPRESSION: Displaced, impacted fracture. Reviewed, Interpreted and Dictated by Jc Jackson MD Transcribed by Massiel Champagne Authenticated by Jc Jackson MD on 10/20/2021 01:53:26 PM [facility]
== END ==
PROVIDERS: PCP Emergency Medicine; Visit Provider Orthopaedic Surgery
DX: S42.302A Unspecified fracture of shaft of humerus, left arm, initial encounter for closed fracture (principal)
CPT/HCPCS: 73060

== ENCOUNTER → 2021-11-10 09:17 | Outpatient (CLI) | payer MEDICAID, SELFPAY ==
--- NOTE | 2021-11-10 09:21 | XR_ITS ---
FINAL REPORT CLINICAL HISTORY: humerus fx COMPARISON: October 20, 2021 FINDINGS: 2 views of the left humerus were obtained. There is a fracture of the surgical and anatomic necks of the humerus. There is moderate displacement. The humeral head is laterally subluxed and flattened. There is increased callus formation. IMPRESSION: Healing comminuted displaced fracture. Reviewed, Interpreted and Dictated by Jc Jackson MD Transcribed by Jarad Conti Authenticated by Jc Jackson MD on 11/10/2021 11:38:41 AM [facility]
--- NOTE | 2021-11-10 09:21 | XR_ITS ---
FINAL REPORT CLINICAL HISTORY: humerus fx COMPARISON: October 13, 2021 FINDINGS: 2 views of the right humerus were obtained. There is redemonstration of a displaced fracture through the surgical neck. There is abundant callus formation, new from prior. There are moderate hypertrophic changes of the AC joint. IMPRESSION: Healing displaced fracture through the right surgical neck. Reviewed, Interpreted and Dictated by Jc Jackson MD Transcribed by Jarad Conti Authenticated by Jc Jackson MD on 11/10/2021 11:38:[address] [facility]
== END ==
PROVIDERS: PCP Emergency Medicine; Visit Provider Physician Assistant Surgical
DX: S42.202D Unspecified fracture of upper end of left humerus, subsequent encounter for fracture with routine healing (principal); S42.211D Unspecified displaced fracture of surgical neck of right humerus, subsequent encounter for fracture with routine healing
CPT/HCPCS: 73060

== ENCOUNTER → 2021-11-30 18:57 | Outpatient (CLI) | payer MEDICAID, SELFPAY ==
[2021-11-30 14:35] LABS: Alanine Aminotransferase 23 U/L (12-78); Alkaline Phosphatase 254 U/L (38-126); Anion Gap 10.1 mEq/L (5-15); Aspartate Amino Transferase 75 U/L (14-36); Bilirubin,Total 0.4 mg/dl (0.2-1.3); Blood Urea Nitrogen 7 mg/dl (7-17); Calcium 8.2 mg/dl (8.4-10.2); Carbon Dioxide 30 mmol/L (22.0-30.0); Chloride 101 mmol/L (98-107); Estimated Glomerular Filt Rate 168 ml/min (>60); GFR (African American) 204 ML/MIN (>60); Globulin 2.9 g/dL (1.3-3.2); Glucose 75 mg/dl (74-100); Potassium 4.1 mmoL/L (3.5-5.1); Sodium 137 mmol/L (136-145); Total Protein,Serum 5.9 g/dl (6.3-8.2)
== END ==
PROVIDERS: Visit Provider Emergency Medicine
DX: E87.5 Hyperkalemia (principal)
CPT/HCPCS: 80053

== ENCOUNTER → 2021-12-07 13:05 | Outpatient (CLI) | payer MEDICAID, SELFPAY ==
[2021-12-07 13:09] LABS: Adenovirus F 40/41, stool Not Detected (NotDetected); Astrovirus Not Detected (NotDetected); Campylobacter Not Detected (NotDetected); Clostridium Difficile A/B, PCR Not Detected (NotDetected); Cryptosporidium Not Detected (NotDetected); Cyclospora Cayetanesis Not Detected (NotDetected); Entamoeba histolytica Not Detected (NotDetected); Enteroaggregative E coli Not Detected (NotDetected); Enteropathogenic E coli Not Detected (NotDetected); Enterotoxigenic E coli Not Detected (NotDetected); Giardia lamblia Not Detected (NotDetected); Norovirus Not Detected (NotDetected); Plesimonas Shigalloides, PCR Not Detected (NotDetected); Rotavirus A Not Detected (NotDetected); Salmonella, PCR Not Detected (NotDetected); Sapovirus Not Detected (NotDetected); Shiga-like toxin E coli Not Detected (NotDetected); Shigella Enterovasive E coli Not Detected (NotDetected); Vibrio Cholerae Not Detected (NotDetected); Vibrio, PCR Not Detected (NotDetected); Yersinia Entercolitica, PCR Not Detected (NotDetected)
== END ==
PROVIDERS: Visit Provider Emergency Medicine
DX: R19.7 Diarrhea, unspecified (principal)
CPT/HCPCS: 87507

== ENCOUNTER → 2021-12-17 15:10 | Outpatient (CLI) | payer MEDICAID, SELFPAY ==
[2021-12-26 19:44] LABS: Hep A Ab, IgM NEGATIVE; Hepatitis B Core Antibody IgM NEGATIVE; Hepatitis B Surface Antigen NEGATIVE; Hepatitis C Antibody 0.2
== END ==
PROVIDERS: PCP Emergency Medicine; Visit Provider Emergency Medicine
DX: R74.8 Abnormal levels of other serum enzymes (principal)
CPT/HCPCS: 36415; 80074

== ENCOUNTER 2022-01-06 14:00 | Outpatient (RCR) | payer MEDICAID, SELFPAY ==
--- NOTE | 2021-11-16 11:32 | HMH.OTOPEV ---
OT Inpatient Evaluation Rehab OT Outpatient Eval Start: 11/16/21 11:17 Freq: Status: Active Protocol: Document 11/16/21 11:18 ROLANDA (Rec: 11/16/21 11:32 ROLANDA [id number]) Electronically Signed By Brenda Waggoner, OT 11/16/21 11:18 Outpatient Therapy Subjective History Subjective History 51 year old female referred to skilled OP OT services for bilateral humerus. Patient was accompanied by her sister. Patient fx her left shoulder on September 29 which was ~7 weeks ago and fx her right shoulder on October 13 which was ~5 weeks ago from initial OT evaluation. Patient has became dependent on her ADLs by her family and unable to complete toileting, self feeding, drsg and bathing without assistance. Sister reported Patient falling at home both times with resulting in B humerus fx. Patient is no longer wearing the bilateral slings which OT provided HEP that insisted of PROM and AAROM as tolerable. Chief Complaint Pain,Decreased Sales Porter Strength Symptom Type Ache Symptoms Relieved By Nothing Symptoms Aggravated By Physical Activity Prior Functional Limitations None Current Functional Limitations Reaching,Lifting,Sleeping, Recreation Activity Level of pain today (0-10) 7 Pain scale - at its best (0-10) 7 Pain scale - at its worst (0-10) 7 Shoulder/Elbow Eval Shoulder Objective Measurements Shoulder ROM Right Shoulder Abduction Active Range of 20 Motion (degrees) Shoulder Flexion Active Range of Motion 20 (degrees) Query Text: Shoulder External Rotation Active Range 0 of Motion (degrees) Shoulder Internal Rotation Active Range 0 of Motion (degrees) pain with active ROM shoulder exam left standard Left Shoulder Abduction Active Range of 40 Motion (degrees) Shoulder Flexion Active Range of Motion 40 (degrees) Query Text: Shoulder External Rotation Active Range 0 of Motion (degrees) Shoulder Internal Rotation Active Range 0 of Motion (degrees) pain with active ROM shoulder exam
== END 2022-01-06 14:05 | disposition home or self-care (01) ==
LOC: OT 14:00
PROVIDERS: PCP Emergency Medicine; Visit Provider Orthopaedic Surgery
DX: S42.202D Unspecified fracture of upper end of left humerus, subsequent encounter for fracture with routine healing (principal); S42.211D Unspecified displaced fracture of surgical neck of right humerus, subsequent encounter for fracture with routine healing
CPT/HCPCS: 97010; 97110; 97140; 97164; 97165; 97530

== ENCOUNTER → 2022-01-12 09:52 | Outpatient (CLI) | payer MEDICAID, SELFPAY ==
--- NOTE | 2022-01-12 09:59 | XR_ITS ---
FINAL REPORT CLINICAL HISTORY: humerus fx, pain COMPARISON: November 10, 2021 FINDINGS: RIGHT HUMERUS 2 views were obtained. There is a fracture of the surgical neck of the right humerus. Bony alignment appears stable. There is increased new bone formation at the fracture site. There are mild degenerative changes of the acromioclavicular and glenohumeral joints. IMPRESSION: Further interval healing of the right humeral fracture. Reviewed, Interpreted and Dictated by Tone Hsu III, MD Transcribed by Massiel Champagne Authenticated and [facility]
--- NOTE | 2022-01-12 09:59 | XR_ITS ---
FINAL REPORT CLINICAL HISTORY: humerus fx, pain COMPARISON: November 10, 2021 FINDINGS: LEFT HUMERUS 2 views were obtained. There is a fracture of the proximal left humerus. Bony alignment appears stable. There is increased new bone formation at the fracture site. There are mild degenerative changes of the acromioclavicular and glenohumeral joints. IMPRESSION: Further interval healing of the left humeral fracture. Reviewed, Interpreted and Dictated by Tone Hsu III, MD Transcribed by Massiel Champagne Authenticated and . [facility]
== END ==
PROVIDERS: PCP Emergency Medicine; Visit Provider Physician Assistant Surgical
DX: S42.202D Unspecified fracture of upper end of left humerus, subsequent encounter for fracture with routine healing (principal); S42.211D Unspecified displaced fracture of surgical neck of right humerus, subsequent encounter for fracture with routine healing
CPT/HCPCS: 73060

== ENCOUNTER 2022-04-04 14:31 | Emergency (ER) | payer MEDICAID, SELFPAY ==
[2022-04-04 14:51] VITALS: BP 149/77; PULSE 90; RESP 18; TEMP 37.1; O2SAT 95; BMI 32.8
[2022-04-04 15:30] VITALS: BP 149/77; PULSE 90; RESP 18; TEMP 37.1; O2SAT 95; BMI 32.8
--- NOTE | 2022-04-04 15:53 | EXP.UTC ---
Discharge Plan Disposition Patient Disposition: Home, Self-Care Prescriptions Prescriptions: New methylprednisolone [Medrol (Keith)] 4 mg tablets,dose pack 4 mg PO DIRECTED 6 Days Qty: 6 0RF Rx Instructions: 4 mg orally ;Medrol dose taper keith amoxicillin 875 mg tablet 875 mg PO BID 10 Days Qty: 20 0RF No Action benztropine 0.5 mg tablet 0.5 mg PO BID gabapentin 100 mg capsule 100 mg PO BID Qty: 60 2RF clonazepam [Klonopin] 0.5 mg tablet 0.5 mg PO BID Qty: 60 2RF loratadine 10 mg tablet 10 mg PO DAILY omeprazole 40 mg capsule,delayed release(DR/EC) 40 mg PO AM prazosin 1 mg capsule 1 mg PO HS sertraline 100 mg tablet 200 mg PO DAILY ergocalciferol (vitamin D2) 1,250 mcg (50,000 unit) capsule 1,250 mcg PO SA loperamide 2 mg tablet 2 mg PO Q3H PRN (Reason: Diarrhea) Bevespi Aerosphere 9-4.8 mcg HFA aerosol inhaler 2 puff INHALATION BID Qty: 10.7 2RF acetaminophen 500 mg tablet See Rx Instructions .ROUTE .COMPLEX Qty: 120 0RF Dose Instruction: TAKE 1 CAPLET BY MOUTH EVERY 6 HOURS FOR MILD TO MODERATE PAIN Rx Instructions: TAKE 1 CAPLET BY MOUTH EVERY 6 HOURS FOR MILD TO MODERATE PAIN loperamide [Anti-Diarrheal (loperamide)] 2 mg tablet 2 mg PO Q6H PRN (Reason: loose stool) Qty: 20 2RF ondansetron 4 mg tablet,disintegrating 4 mg PO Q8H PRN (Reason: nausea and vomiting) Qty: 20 2RF trazodone 150 mg tablet See Rx Instructions .ROUTE .COMPLEX Qty: 30 0RF Dose Instruction: TAKE 1 TABLET BY MOUTH AT BEDTIME Rx Instructions: TAKE 1 TABLET BY MOUTH AT BEDTIME trazodone 100 mg tablet 150 mg PO HS albuterol sulfate 2.5 mg /3 mL (0.083 %) solution for nebulization See Rx Instructions .ROUTE .COMPLEX Qty: 180 0RF Dose Instruction: INHALE CONTENTS OF 1 VIAL VIA NEBULIZER 2 TIMES DAILY NEEDED FOR SHORTNESS OF BREATH Rx Instructions: INHALE CONTENTS OF 1 VIAL VIA NEBULIZER 2 TIMES DAILY NEEDED FOR SHORTNESS OF BREATH bupropion HCl 300 mg tablet extended release 24 hr See Rx Instructions .ROUTE .COMPLEX Qty: 30 0RF Dose Instruction: TAKE 1 TABLET BY MOUTH ONCE DAILY IN THE MORNING FOR MOOD Rx Instructions: TAKE 1 TABLET BY MOUTH ONCE DAILY IN THE MORNING FOR MOOD dicyclomine 10 mg capsule See Rx Instructions .ROUTE .COMPLEX Qty: 60 0RF Dose Instruction: TAKE 1 CAPSULE BY MOUTH TWICE DAILY Rx Instructions: TAKE 1 CAPSULE BY MOUTH TWICE DAILY divalproex 500 mg tablet,delayed release (DR/EC) See Rx Instructions .ROUTE .COMPLEX Qty: 90 0RF Dose Instruction: TAKE 1 TABLET BY MOUTH THREE TIMES DAILY FOR SEIZURES Rx Instructions: TAKE 1 TABLET BY MOUTH THREE TIMES DAILY FOR SEIZURES albuterol sulfate [ProAir HFA] 90 mcg/actuation HFA aerosol inhaler See Rx Instructions .ROUTE .COMPLEX Qty: 8.5 0RF Dose Instruction: INHALE 1 PUFF BY MOUTH EVERY 4 TO 6 HOURS NEEDED FOR SHORTNESS OF BREATH Rx Instructions: INHALE 1 PUFF BY MOUTH EVERY 4 TO 6 HOURS NEEDED FOR SHORTNESS OF BREATH Nuedexta 20-10 mg capsule See Rx Instructions .ROUTE .COMPLEX Qty: 60 0RF Dose Instruction: TAKE 1 CAPSULE BY MOUTH EVERY 12 HOURS FOR MOOD Rx Instructions: TAKE 1 CAPSULE BY MOUTH EVERY 12 HOURS FOR MOOD ipratropium-albuterol 3 ML solution for nebulization 3 ml IH QIDP PRN (Reason: Shortness Of Breath) vilazodone 10 MG tablet 10 mg PO DAILY paliperidone 9 MG tablet extended release 24 hr 9 mg PO DAILY Label Comments: TAKE WITH 3 MG FOR TOTAL DOSE OF 12 MG Rx Instructions: TAKE WITH 3 MG FOR TOTAL DOSE OF 12 MG ibuprofen 600 MG tablet 600 mg PO Q6HP PRN (Reason: Moderate Pain) Qty: 20 0RF Referrals Follow up/Referrals: Jared Pak MD [Primary Care Provider] - See instructions Activity Restrictions/Add. Instructions Additional Instructions/Restrictions: Take medica
[2022-04-04 16:07] VITALS: BP 149/77; PULSE 90; RESP 18; TEMP 37.1; O2SAT 95
[2022-04-04 18:01] LABS: Adenovirus,PCR Not Detected (NotDetected); Bordetella Pertussis Not Detected (NotDetected); Chlamydophila Pneumoniae, PCR Not Detected (NotDetected); Coronavirus 19, PCR Not Detected (NotDetected); Coronavirus 229E Not Detected (NotDetected); Coronavirus NL63 Not Detected (NotDetected); Coronavirus OC43 Not Detected (NotDetected); Coronovirus HKU1,PCR Not Detected (NotDetected); Human Metapneumovirus Not Detected (NotDetected); Influenza A, PCR Not Detected (NotDetected); Influenza AH1, 2009 Not Detected (NotDetected); Influenza AH1, PCR Not Detected (NotDetected); Influenza AH3,PCR Not Detected (NotDetected); Influenza B, PCR Not Detected (NotDetected); Mycoplasma Pneumoniae, PCR Not Detected (NotDetected); Parainfluenza 1, PCR Not Detected (NotDetected); Parainfluenza 2, PCR Not Detected (NotDetected); Parainfluenza 3, PCR Not Detected (NotDetected); Parainfluenza 4, PCR Not Detected (NotDetected); Respiratory Syncytial Virus Not Detected (NotDetected); Rhinovirus/Enterovirus Not Detected (NotDetected)
== END 2022-04-04 16:09 | disposition home or self-care (01) ==
PROVIDERS: Nurse Practitioner; Emergency Provider Nurse Practitioner Family; PCP Emergency Medicine
DX: J02.9 Acute pharyngitis, unspecified (principal); R06.02 Shortness of breath; R51.9 Headache, unspecified; R05.9 Cough, unspecified; R50.9 Fever, unspecified
CPT/HCPCS: 87581; 87632; 87798; 99212; C9803; G0463; U0003; U0005

== ENCOUNTER 2022-04-14 23:40 | Emergency (ER) | payer MEDICAID, SELFPAY ==
[2022-04-14 23:43] VITALS: BP 167/74; PULSE 90; RESP 22; TEMP 36.6; O2SAT 98; BMI 32.3
--- NOTE | 2022-04-14 23:49 | XR_ITS ---
PROCEDURE INFORMATION: Exam: XR Chest Exam date and time: 04/14/2022 11:58 AM Age: 51 years old Clinical indication: Cough TECHNIQUE: Imaging protocol: Radiologic exam of the chest. Views: 1 view. COMPARISON: CR XR CHEST PORTABLE 08/30/2021 11:48 AM FINDINGS: Lungs: Meniscus right lung base with contiguous atelectasis. Multiple calcified granulomas left hilum and left lung base. Pleural spaces: Unremarkable. No pleural effusion. No pneumothorax. Heart/Mediastinum: Heart is enlarged. Bones/joints: Remodeling of the proximal humerus of bilaterally from remote fracture. IMPRESSION: Cardiomegaly and right pleural effusion.
--- NOTE | 2022-04-14 23:50 | HMH.EDGENADL ---
Discharge Plan Disposition Patient Disposition: Home, Self-Care Condition: Good Chief Complaint: PAIN Prescriptions Prescriptions: No Action benztropine 0.5 mg tablet 0.5 mg PO BID gabapentin 100 mg capsule 100 mg PO BID Qty: 60 2RF clonazepam [Klonopin] 0.5 mg tablet 0.5 mg PO BID Qty: 60 2RF loratadine 10 mg tablet 10 mg PO DAILY omeprazole 40 mg capsule,delayed release(DR/EC) 40 mg PO AM prazosin 1 mg capsule 1 mg PO HS sertraline 100 mg tablet 200 mg PO DAILY ergocalciferol (vitamin D2) 1,250 mcg (50,000 unit) capsule 1,250 mcg PO SA loperamide 2 mg tablet 2 mg PO Q3H PRN (Reason: Diarrhea) Bevespi Aerosphere 9-4.8 mcg HFA aerosol inhaler 2 puff INHALATION BID Qty: 10.7 2RF loperamide [Anti-Diarrheal (loperamide)] 2 mg tablet 2 mg PO Q6H PRN (Reason: loose stool) Qty: 20 2RF ondansetron 4 mg tablet,disintegrating 4 mg PO Q8H PRN (Reason: nausea and vomiting) Qty: 20 2RF trazodone 150 mg tablet See Rx Instructions .ROUTE .COMPLEX Qty: 30 0RF Dose Instruction: TAKE 1 TABLET BY MOUTH AT BEDTIME Rx Instructions: TAKE 1 TABLET BY MOUTH AT BEDTIME trazodone 100 mg tablet 150 mg PO HS Nuedexta 20-10 mg capsule See Rx Instructions .ROUTE .COMPLEX Qty: 60 0RF Dose Instruction: TAKE 1 CAPSULE BY MOUTH EVERY 12 HOURS FOR MOOD Rx Instructions: TAKE 1 CAPSULE BY MOUTH EVERY 12 HOURS FOR MOOD peg 3350-electrolytes [Golytely] 236-22.74-6.74 -5.86 gram recon soln 240 ml PO Q10M Qty: 4000 0RF Rx Instructions: until fecal effluent is clear ipratropium-albuterol 3 ML solution for nebulization 3 ml IH QIDP PRN (Reason: Shortness Of Breath) vilazodone 10 MG tablet 10 mg PO DAILY paliperidone 9 MG tablet extended release 24 hr 9 mg PO DAILY Label Comments: TAKE WITH 3 MG FOR TOTAL DOSE OF 12 MG Rx Instructions: TAKE WITH 3 MG FOR TOTAL DOSE OF 12 MG ibuprofen 600 MG tablet 600 mg PO Q6HP PRN (Reason: Moderate Pain) Qty: 20 0RF methylprednisolone [Medrol (Keith)] 4 mg tablets,dose pack 4 mg PO DIRECTED 6 Days Qty: 6 0RF Rx Instructions: 4 mg orally ;Medrol dose taper keith amoxicillin 875 mg tablet 875 mg PO BID 10 Days Qty: 20 0RF albuterol sulfate 2.5 mg /3 mL (0.083 %) solution for nebulization See Rx Instructions .ROUTE .COMPLEX Rx Instructions: INHALE CONTENTS OF 1 VIAL VIA NEBULIZER 2 TIMES DAILY NEEDED FOR SHORTNESS OF BREATH clonazepam [Klonopin] 0.5 mg tablet 0.5 mg PO BID divalproex 500 mg tablet,delayed release (DR/EC) See Rx Instructions .ROUTE .COMPLEX Rx Instructions: TAKE 1 TABLET BY MOUTH THREE TIMES DAILY FOR SEIZURES acetaminophen 500 mg tablet See Rx Instructions .ROUTE .COMPLEX Rx Instructions: TAKE 1 CAPLET BY MOUTH EVERY 6 HOURS FOR MILD TO MODERATE PAIN gabapentin 100 mg capsule 100 mg PO BID albuterol sulfate [ProAir HFA] 90 mcg/actuation HFA aerosol inhaler See Rx Instructions .ROUTE .COMPLEX Rx Instructions: INHALE 1 PUFF BY MOUTH EVERY 4 TO 6 HOURS NEEDED FOR SHORTNESS OF BREATH dicyclomine 10 mg capsule See Rx Instructions .ROUTE .COMPLEX Rx Instructions: TAKE 1 CAPSULE BY MOUTH TWICE DAILY bupropion HCl 300 mg tablet extended release 24 hr See Rx Instructions .ROUTE .COMPLEX Rx Instructions: TAKE 1 TABLET BY MOUTH ONCE DAILY IN THE MORNING FOR MOOD Referrals Follow up/Referrals: Jared Pak MD [Primary Care Provider] - See instructions Activity Restrictions/Add. Instructions Additional Instructions/Restrictions: You have been evaluated for cough, chest congestion. You have been diagnosed with COVID-19. Please continue to monitor your symptoms closely. Take Tylenol for aches, pains, fever. Follow-up with your primary care doctor in 1 to 2 days for symptom recheck. Return to the emergency department at onc
[2022-04-14 23:51] VITALS: PULSE 88; O2SAT 97
--- NOTE | 2022-04-15 00:06 | ECG_ITS ---
APPROVED REPORT Exam: Resting ECG HR:79 bpm ECG Measurements Heart Rate 79 AXES MN 144 P 72 QRSd 97 QRS 90 QT 378 T 78 QTc 413 Conclusion SINUS RHYTHM NORMAL ECG UNCONFIRMED REPORT Electronically signed by : Praful Kaufman MD 04/15/2022 19:28:30
[2022-04-15 00:12] LABS: Basophils # 0.2 K/mm3 (0-0.2); Basophils % 1.3 % (0.1-2.0); Eosinophils # 0.1 K/mm3 (0.0-0.4); Eosinophils % 0.6 % (0.1-12.0); Hematocrit 44.4 % (37.0-47.0); Hemoglobin 13.9 g/dL (12.2-16.2); Lymphocytes # 4.5 K/mm3 (0.7-4.5); Lymphocytes % 36.1 % (10-50); Mean Corpuscular HGB Conc 31.3 g/dL (31.8-35.4); Mean Corpuscular Hemoglobin 30.4 pg (27.0-31.2); Mean Platelet Volume 7.9 fl (7.4-10.4); Monocytes # 0.6 K/mm3 (0.1-1.0); Monocytes % 4.6 % (1.7-9.3); Neutrophils # 7.2 K/mm3 (1.8-7.8); Neutrophils % 57.3 % (37.0-80.0); Platelet Count 343 K/mm3 (142-424); Red Blood Count 4.57 M/mm3 (4.20-5.40); Red Cell Distribution Width 13.1 % (11.5-17.5); White Blood Count 12.5 K/mm3 (4.8-10.8)
[2022-04-15 00:13] LABS: Influenza A, PCR Not Detected (NotDetected); Influenza B, PCR Not Detected (NotDetected)
[2022-04-15 00:18] LABS: Chloride 104 mmol/L (98-107); Potassium 4.6 mmoL/L (3.5-5.1); Sodium 141 mmol/L (136-145)
[2022-04-15 00:20] LABS: Alanine Aminotransferase 19 U/L (12-78); Aspartate Amino Transferase 38 U/L (14-36); Blood Urea Nitrogen 11 mg/dl (7-17); Creatinine Clearance Estimated 238 mL/min (50-200); Estimated Glomerular Filt Rate 168 ml/min (>60); GFR (African American) 204 ML/MIN (>60)
[2022-04-15 00:21] LABS: Albumin Level 3.6 g/dl (3.5-5.0); Albumin/Globulin Ratio 0.9 (1.1-1.8); Alkaline Phosphatase 194 U/L (38-126); Anion Gap 10.6 mEq/L (5-15); Calcium 7.7 mg/dl (8.4-10.2); Carbon Dioxide 31 mmol/L (22.0-30.0); Glucose 83 mg/dl (74-100); Total Protein,Serum 7.6 g/dl (6.3-8.2)
[2022-04-15 00:30] VITALS: BP 115/43; PULSE 81; O2SAT 95
[2022-04-15 00:41] LABS: Bilirubin,Total < 0.1 mg/dl (0.2-1.3); Troponin I < 0.01 ng/ml (0.00-0.034)
[2022-04-15 00:47] LABS: Coronavirus 19, PCR Detected (NotDetected)
[2022-04-15 00:47] LABS: VBG Base Excess 0.9 mmol/L (-2.4-2.3); VBG HCO3 24.7 mmol/L (23-30); VBG Oxygen Saturation 99.1 % (50-70); VBG PCO2 35.5 mmol/L (35-51); VBG PH 7.46 mmol/L (7.31-7.41); VBG PO2 142.7 mmol/L (28-40); VBG Total CO2 25.8 mmol/L (23-27)
[2022-04-15 01:00] VITALS: BP 164/84; PULSE 70; O2SAT 95
[2022-04-15 01:28] VITALS: BP 164/85; PULSE 85; RESP 19; TEMP 36.7; O2SAT 96
== END 2022-04-15 01:29 | disposition home or self-care (01) ==
PROVIDERS: Emergency Provider Emergency Medicine; PCP Emergency Medicine
DX: U07.1 COVID-19 (principal); Z79.82 Long term (current) use of aspirin; Z79.51 Long term (current) use of inhaled steroids; Z79.899 Other long term (current) drug therapy; J44.9 Chronic obstructive pulmonary disease, unspecified; E78.5 Hyperlipidemia, unspecified; I10 Essential (primary) hypertension; F32.A Depression, unspecified; F41.9 Anxiety disorder, unspecified; G43.909 Migraine, unspecified, not intractable, without status migrainosus
CPT/HCPCS: 71045; 80053; 82803; 84484; 85025; 93005; 99284; C9803; U0003; U0005

== ENCOUNTER → 2022-05-05 13:08 | Outpatient (CLI) | payer MEDICAID, SELFPAY | PROVIDERS: PCP Emergency Medicine; Visit Provider Surgery | DX: Z01.812 Encounter for preprocedural laboratory examination (principal); Z20.822 Contact with and (suspected) exposure to COVID-19; Z12.11 Encounter for screening for malignant neoplasm of colon | CPT/HCPCS: C9803; U0003; U0005 ==

== ENCOUNTER 2022-05-07 09:20 | Day surgery (SDC) | payer MEDICAID, SELFPAY ==
[2022-05-05 12:49] VITALS: BMI 28.3
[2022-05-07 09:53] VITALS: BP 144/91; PULSE 104; RESP 18; TEMP 36.3; O2SAT 92
--- NOTE | 2022-05-07 10:10 | EXP.ANES.CKL ---
[facility] Medical History Allergies Anxiety Asthma COPD (chronic obstructive pulmonary disease) Depression History of COVID-19 History of gastroesophageal reflux (GERD) Hyperlipidemia Hypertension Incontinence Migraine Urinary tract infection Surgical History History of breast biopsy History of cholecystectomy History of hysterectomy Family History Father Lung cancer Sister Lung cancer Ovarian cancer Kidney disease Mother Kidney disease Social History (Updated 05/07/22 @ 10:03 by Ema Mathis RN) Smoking Status: Current every day smoker tobacco type: cigarettes packs per day: 1 alcohol intake: never counseling provided: none substance use type: denies use current occupational status: disabled Travel in the last 8 weeks: None caregiver/support person: Yes household members: caregiver housing: assisted living facility lives independently: No do you feel safe at home: Yes victim of physical abuse: No victim of emotional abuse: No victim of sexual abuse: No would you like helpful sources: No [facility] Anesthesia Checklist Patient Identification Patient Identification: Arm Band and Family Structural Data Admitted From: Home Planned Operative Procedure/s: colonoscopy Consent for Planned Operative Procedure(s) Verified: Yes Verified Documents: Surgical Consent and History and Physical NPO Status Verified Time NPO: 00:00 Additional verifications Anesthesia Reactions: No Airway Assessment C-Spine Mobility Assessed: Yes TMJ Mobility Assessed: Yes Dentition: Poor Dentition Neurological Assessment Level of Consciousness: Awake and Alert Anesthesia Plan Anesthesia Risk discussed: Yes Anesthesia Plan: Verified ASA Class: III Anesthesia Type: MAC
[2022-05-07 11:03] VITALS: O2SAT 98
--- NOTE | 2022-05-07 12:49 | HMH.SCOPE ---
Procedure: Date: 05/07/22 Patient Date of :: 1970 Procedure Performed:: Total colonoscopy to terminal ileum with multiple polypectomy Indications:: Patient is a 51-year-old female with significant COPD who had previously resided in a personal care longterm. She was scheduled for screening colonoscopy interestingly. However, the patient has had some symptoms of diarrhea for several months. She had undergone stool diarrhea panel which was negative for any infectious etiology. Performing Provider:: Tone Cline MD Referring Provider:: Harvinder Pak MD Sedation:: MAC sedation Procedure:: Patient history was obtained and appropriate physical examination was performed. Patient's medications and allergies were reviewed. Informed consent was obtained after explaining the benefits, alternatives, and risks of the procedure including, but not limited to, bleeding, perforation, missed lesions, and adverse reaction to anesthesia medications. Patient was transported to endoscopy procedure room. Patient was connected to monitoring devices. Throughout the procedure the patient's blood pressure, pulse, and oxygen saturations were monitored continuously. Patient identification and planned procedure were verified by the staff. Patient was positioned in lateral decubitus position. Digital anorectal exam was performed. Variable stiffness Olympus colonoscope was inserted and advanced under direct visualization to the cecum. Adequacy of the colonic preparation was noted. The colonoscope was advanced a short distance into the terminal ileum. The colonoscope was then slowly withdrawn while carefully examining the color, texture, anatomy, and integrity of the mucosoa circumferentially. Within the rectum retroflexion was performed. Colonoscope was then withdrawn. Impression: She had a good preparation. She was noted to have cecal polyp removed with cutting snare with residual polyp removed with biopsy forceps. Ascending colon polyp (moderately large pedunculated) was removed with hot snare. Couple of hepatic flexure polyps removed with cold snare. Proximal transverse colon polyp x2 removed with cold snare. Sigmoid polyp removed with cold snare. Several random biopsies were obtained of the left colon to rule out microscopic colitis. Descending colon polyp removed with cold snare. Rectosigmoid polyp was noted at the angulation of the rectosigmoid junction. This was moderately large. There was significant difficulty in performance polypectomy. Majority of the polyp was removed with hot snare. However, there was residual polyp noted. Endoscopic visualization of this area was profoundly difficult as she had significant spasticity and hyperperistalsis of the colon with mucosal intussusception. The endoscope was withdrawn and the Endo cuff was applied to the colonoscope. The colonoscope was then reinserted. However the area could not be clearly identified for completion polypectomy despite repeat insertion and withdrawal of the colonoscope. The endoscope was then removed. Ultimately after prolonged period of time the site was identified. Rebecca ink was injected to kimber the area. At this time residual polypoid tissue was able to be removed with cold cutting snare. It was unclear if complete polypectomy was performed. In the rectum retroflexion was performed which revealed nonpathologic internal hemorrhoids and anal papillae. Procedure time from insertion of colonoscope to removal approximately 1 hour 40 minutes. Findings:: Good colonic preparation Polyps as noted above. She had approximately 11 polyps. Most concerning was the ascending colon polyp which required removal with hot snare and retrieval after maceration using Madrigal net. More concerning was the rectosigmoid polyp at approximately 20 cm which was difficult to confirm completion polypectomy due to profound hyperperistalsis, spasticity, and intussusception of colonic mucos
[2022-05-07 12:55] VITALS: BP 146/95; PULSE 86; RESP 18; TEMP 36.3; O2SAT 92
[2022-05-07 13:05] VITALS: BP 144/86; PULSE 83; RESP 18; O2SAT 93
[2022-05-07 13:15] VITALS: BP 168/103; PULSE 86; RESP 18; O2SAT 92
[2022-05-07 13:25] VITALS: BP 169/97; PULSE 83; RESP 18; TEMP 36.3; O2SAT 93
== END 2022-05-07 13:25 | disposition home or self-care (01) ==
PROVIDERS: PCP Emergency Medicine; Visit Provider Surgery
PROC: 0DJD8ZZ Inspection of Lower Intestinal Tract, Via Natural or Artificial Opening Endoscopic (ICD-10-PCS; CPT 45385; principal; 2022-05-07 10:30)
DX: R19.7 Diarrhea, unspecified (principal); R10.9 Unspecified abdominal pain; K63.5 Polyp of colon; Z72.0 Tobacco use; Z79.899 Other long term (current) drug therapy
CPT/HCPCS: 45385; J2704

== ENCOUNTER 2022-05-16 10:14 | Emergency (ER) | payer MEDICAID, SELFPAY ==
[2022-05-16 10:25] VITALS: BP 138/86; PULSE 78; RESP 20; TEMP 36.7; O2SAT 96; BMI 29.9
--- NOTE | 2022-05-16 10:29 | XR_ITS ---
PROCEDURE INFORMATION: Exam: XR Left Hand Exam date and time: 05/16/2022 10:31 AM Age: 51 years old Clinical indication: Pain; Hand; Left; Additional info: Inured pinky and ring finger TECHNIQUE: Imaging protocol: Radiologic exam of the Left hand. Views: 3 or more views. COMPARISON: No relevant prior studies available. FINDINGS: Bones/joints: Subtle, minimally displaced fracture within the medial 5th proximal phalangeal base. No definite articular extension. Soft tissues: Mild medial soft tissue swelling at the metacarpal phalangeal joint. IMPRESSION: Subtle, minimally displaced fracture within the medial 5th proximal phalangeal base. No definite articular extension.
--- NOTE | 2022-05-16 10:34 | EXP.UTC ---
Discharge Plan Disposition Patient Disposition: Home, Self-Care Condition: Good Prescriptions Prescriptions: No Action trazodone 100 mg tablet 150 mg PO HS Qty: 45 2RF divalproex 500 mg tablet,delayed release (DR/EC) 500 mg PO TID Qty: 90 0RF Rx Instructions: TAKE 1 TABLET BY MOUTH THREE TIMES DAILY FOR SEIZURES dicyclomine 10 mg capsule 10 mg PO BID Qty: 60 2RF Rx Instructions: TAKE 1 CAPSULE BY MOUTH TWICE DAILY Nuedexta 20-10 mg capsule 1 cap PO BID Qty: 60 0RF clonidine HCl 0.1 mg tablet 0.1 mg PO BID Qty: 60 0RF bupropion HCl 300 mg tablet extended release 24 hr 300 mg PO DAILY Qty: 30 2RF Rx Instructions: TAKE 1 TABLET BY MOUTH ONCE DAILY IN THE MORNING FOR MOOD albuterol sulfate [ProAir HFA] 90 mcg/actuation HFA aerosol inhaler 1 puff inhalation Q4-6H PRN (Reason: SHORT OF BREATH ) Qty: 8.5 0RF Rx Instructions: INHALE 1 PUFF BY MOUTH EVERY 4 TO 6 HOURS NEEDED FOR SHORTNESS OF BREATH acetaminophen 500 mg tablet 1,000 mg PO DAILY Qty: 30 1RF Rx Instructions: TAKE 1 CAPLET BY MOUTH EVERY 6 HOURS FOR MILD TO MODERATE PAIN loperamide 2 mg tablet 2 mg PO Q6H PRN (Reason: diarrhea) Qty: 30 0RF gabapentin 100 mg capsule 100 mg PO BID Qty: 60 0RF albuterol sulfate 2.5 mg /3 mL (0.083 %) solution for nebulization See Rx Instructions .ROUTE .COMPLEX Rx Instructions: INHALE CONTENTS OF 1 VIAL VIA NEBULIZER 2 TIMES DAILY NEEDED FOR SHORTNESS OF BREATH Referrals Follow up/Referrals: Saroj Licea DO [Staff Physician] - See instructions (Call office tomorrow for appointement) Jared Pak MD [Primary Care Provider] - See instructions Activity Restrictions/Add. Instructions Additional Instructions/Restrictions: *RICE, Rest the extremity, Ice 15-20 minutes 3-4 times daily, Compress- wear the alvin wrap as discussed as much as possible to help reduce swelling and pain, Elevate the extremity when at rest *Alvin wrap and Orthoglass splint is for support and help control swelling,do not remove it Be sure that is not to tight but not to loose either *Elevate when resting? *Ibuprofen 600-800mg every 6-8 hours as needed for pain an inflammation. If need something more can take Tylenol in between doses of Ibuprofen to help Immediately follow up with your family doctor for new or worsening of symptoms, or no noticeable improvement over the next 3-5 days Call Orthopedic office tomorrow for appointment Return if needed Clinical Impressions Clinical Impression: Finger fracture, left Qualifiers: Encounter type: initial encounter Finger: little finger Fracture type: closed Phalanx: proximal Fracture alignment: displaced Qualified Code(s): S62.617A - Displaced fracture of proximal phalanx of left little finger, initial encounter for closed fracture Instructions Patient Instructions: Finger Fracture, DI for Finger Fracture, How To Perform RICE (Rest, Ice, Compress, Elevate) Discharge ED Provider: Ileana Marques [facility] HPI General Stated complaint: LT hand pinky inflammation, blue. AO bent finger Mode of Arrival: Ambulatory Source of Information: Patient and Relative Limitations: No Limitations Time Seen by Provider: 05/16/22 10:34 Description of Symptoms (Recalled from Triage Doc. by RN): PATIENT STATES SHE WAS PLAYING WITH A CHILD LAST NIGHT AND SOMEHOW HER FINGERS ON LEFT HAND BENT BACKWARD. C/O PAIN TO LEFT PINKY FINGER. BRUISING AND SWELLING NOTED TO AREA HEENT Symptoms (Recalled from RN notes): No Resp Symptoms (Recalled from RN notes): No Skin Symptoms (Recalled from RN notes): No MS Symptoms (Recalled from RN notes): Yes Functional Status (Recalled from RN notes): WNL History of Present Illness Provider Complaint: Patient was playing with small child last night and somehow she injured her left hand States that her ring finger and little finger bent back and she started crying States that this morning when she got up family no
[2022-05-16 11:57] VITALS: BP 138/86; PULSE 78; RESP 20; TEMP 36.7; O2SAT 96
== END 2022-05-16 12:02 | disposition home or self-care (01) ==
PROVIDERS: Emergency Provider Nurse Practitioner; PCP Emergency Medicine
DX: S62.617A Displaced fracture of proximal phalanx of left little finger, initial encounter for closed fracture (principal); R06.02 Shortness of breath; R19.7 Diarrhea, unspecified; I10 Essential (primary) hypertension; E78.5 Hyperlipidemia, unspecified; K21.9 Gastro-esophageal reflux disease without esophagitis; G43.909 Migraine, unspecified, not intractable, without status migrainosus; R32 Unspecified urinary incontinence; F41.9 Anxiety disorder, unspecified; J44.9 Chronic obstructive pulmonary disease, unspecified; F17.210 Nicotine dependence, cigarettes, uncomplicated; Z79.1 Long term (current) use of non-steroidal anti-inflammatories (NSAID); Z79.51 Long term (current) use of inhaled steroids; Z79.899 Other long term (current) drug therapy; Z91.018 Allergy to other foods; Z84.1 Family history of disorders of kidney and ureter; Z80.1 Family history of malignant neoplasm of trachea, bronchus and lung; Z80.41 Family history of malignant neoplasm of ovary
CPT/HCPCS: 73130; 99213; G0463

== ENCOUNTER 2022-06-16 00:32 | Inpatient (IN) | payer MEDICAID, SELFPAY ==
[2022-06-16] VITALS (27 sets, daily range): BP systolic 70–136; BP diastolic 33–64; PULSE 70–120; RESP 4–22; TEMP 36.4–38.1; O2SAT 86–98; BMI 30.8; BMI 31.2
--- NOTE | 2022-06-16 00:31 | PC.NURSE ---
RT at BS to obtain ABG and administer breathing treatment
[2022-06-16 00:45] LABS: ABG Base Excess 6.1 mmol/L (-2.4-2.3); ABG HCO3 31.4 mmhg (22.0-26.0); ABG Oxygen Saturation 89 % (90-100); ABG PH 7.37 mmol/L (7.35-7.45); ABG PO2 58.4 mmhg (80-100); ABG TCO2 33.1 mmhg (23-27)
[2022-06-16 00:47] LABS: ABG PCO2 56.1 mmhg (35.0-45.0)
--- NOTE | 2022-06-16 01:02 | ECG_ITS ---
APPROVED REPORT Exam: Resting ECG HR:98 bpm ECG Measurements Heart Rate 98 AXES QRSd 94 QRS 121 QT 362 T 130 QTc 417 Conclusion SUPRAVENTRICULAR RHYTHM POSSIBLE RIGHT VENTRICULAR HYPERTROPHY [SOME/ALL OF: PROMINENT R IN V1, LATE TRANSITION, RAD, JACKIE, SSS] MODERATE T-WAVE ABNORMALITY, CONSIDER ANTERIOR ISCHEMIA [-0.1+ mV T-WAVE IN V3/V4] ABNORMAL ECG UNCONFIRMED REPORT Electronically signed by : Praful Kaufman MD 06/17/2022 21:18:36
--- NOTE | 2022-06-16 01:02 | XR_ITS ---
PROCEDURE INFORMATION: Exam: XR Chest Exam date and time: 06/16/2022 1:25 AM Age: 51 years old Clinical indication: Cough TECHNIQUE: Imaging protocol: Radiologic exam of the chest. Views: 1 view. COMPARISON: CR XR CHEST PORTABLE 04/15/2022 12:04 AM FINDINGS: Lungs: See Pleural spaces finding. Pleural spaces: There is either continued increase in right pleural effusion or increasing consolidation within the right lower lobe. Patchy infiltrate is now present within the left lung base. Heart/Mediastinum: Heart is enlarged. Bones/joints: Remodeling of the bilateral humerus proximally compatible with remote injury and healing. IMPRESSION: 1. There is either continued increase in right pleural effusion or increasing consolidation within the right lower lobe. 2. Patchy infiltrate is now present within the left lung base. 3. Cardiomegaly.
[2022-06-16 01:07] LABS: Coronavirus 19, PCR Not Detected (NotDetected); Influenza A, PCR Not Detected (NotDetected); Influenza B, PCR Not Detected (NotDetected)
[2022-06-16 01:12] LABS: Chloride 97 mmol/L (98-107); Potassium 3.7 mmoL/L (3.5-5.1); Sodium 140 mmol/L (136-145)
[2022-06-16 01:14] LABS: Blood Urea Nitrogen 32 mg/dl (7-17); Creatinine Clearance Estimated 100 mL/min (50-200); Estimated Glomerular Filt Rate 52 ml/min (>60); GFR (African American) 63 ML/MIN (>60)
[2022-06-16 01:15] LABS: Alanine Aminotransferase 12 U/L (12-78); Albumin Level 2.6 g/dl (3.5-5.0); Albumin/Globulin Ratio 0.7 (1.1-1.8); Alkaline Phosphatase 166 U/L (38-126); Anion Gap 14.7 mEq/L (5-15); Aspartate Amino Transferase 31 U/L (14-36); Basophils % 0.4 % (0.1-2.0); Bilirubin,Total 0.2 mg/dl (0.2-1.3); Calcium 7.7 mg/dl (8.4-10.2); Carbon Dioxide 32 mmol/L (22.0-30.0); Eosinophils % 0.4 % (0.1-12.0); Globulin 3.5 g/dL (1.3-3.2); Glucose 82 mg/dl (74-100); Hematocrit 38.4 % (37.0-47.0); Hemoglobin 11.8 g/dL (12.2-16.2); Lymphocytes # 0.9 K/mm3 (0.7-4.5); Lymphocytes % 10.6 % (10-50); Mean Corpuscular HGB Conc 30.8 g/dL (31.8-35.4); Mean Corpuscular Hemoglobin 30.4 pg (27.0-31.2); Mean Corpuscular Volume 98.4 fl (81-99); Mean Platelet Volume 8.3 fl (7.4-10.4); Monocytes # 0.4 K/mm3 (0.1-1.0); Monocytes % 4.8 % (1.7-9.3); Neutrophils # 6.7 K/mm3 (1.8-7.8); Neutrophils % 83.8 % (37.0-80.0); Platelet Count 238 K/mm3 (142-424); Red Cell Distribution Width 14.6 % (11.5-17.5); Total Protein,Serum 6.1 g/dl (6.3-8.2)
[2022-06-16 01:24] LABS: NT Pro Brain Natriuretic Pep. 19300 pg/mL (0-125)
[2022-06-16 01:27] LABS: Troponin I 0.05 ng/ml (0.00-0.034)
--- NOTE | 2022-06-16 01:29 | HMH.EDURI ---
Discharge Plan Disposition Patient Disposition: Admitted As Inpatient Chief Complaint: Upper Respiratory Infection Clinical Impressions Clinical Impression: CAP (community acquired pneumonia), Respiratory failure, Severe sepsis with acute organ dysfunction, Septic shock Discharge ED Provider: Jared Pak URI/Sore Throat HPI General Chief Complaint: Upper Respiratory Infection Stated Complaint: SOA Time Seen by Provider: 06/16/22 01:00 Mode of Arrival: EMS Source of Information: Patient, EMS and Medical Record Limitations: No Limitations Description of Symptoms (Recalled from ER Triage Doc. by RN): Per ems, patients sister called EMS because patient appeared to be lethargic. EMS states that upon their arrival pt was hypotensive with a bp of 70/50 and her oxygen saturation was 70% on room air. History of Present Illness HPI Narrative: uri sx and cough and sob and dec mental status with low sat MD Complaint: cough Onset (ago): day(s) Duration: intermittent Severity: severe Able to tolerate fluids by mouth: Yes Associated symptoms: shortness of breath Treatments prior to arrival: none Related Data Previous Rx's Medication Instructions Recorded acetaminophen 500 mg tablet 1,000 mg PO DAILY pain, fever #30 05/14/22 tabs albuterol sulfate 90 mcg/actuation 1 puff inhalation Q4-6H PRN SHORT 05/14/22 aerosol inhaler (ProAir HFA) OF BREATH #8.5 grams bupropion HCl 300 mg 24 hr tablet, 300 mg PO DAILY MOOD #30 tabs 05/14/22 extended release dicyclomine 10 mg capsule 10 mg PO BID IBS #60 caps 05/14/22 gabapentin 100 mg capsule 100 mg PO BID nerve #60 caps 05/14/22 trazodone 100 mg tablet 150 mg PO HS SLEEP #45 tabs 05/14/22 albuterol sulfate 2.5 mg/3 mL 2.5 mg (3 mL) inhalation .COMPLEX 05/20/22 (0.083 %) solution for nebulization SHORT OF BREATH #180 mL dextromethorphan 20 mg-quinidine See Rx Instructions .Route 05/20/22 10 mg capsule (Nuedexta) .COMPLEX #60 caps divalproex 500 mg tablet,delayed See Rx Instructions .Route 05/20/22 release .COMPLEX #90 tabs meloxicam 7.5 mg tablet 7.5 mg PO BID #60 tabs 06/01/22 clonidine HCl 0.1 mg tablet See Rx Instructions .Route 06/04/22 .COMPLEX #60 tabs loperamide 2 mg capsule See Rx Instructions .Route 06/04/22 .COMPLEX #30 caps Allergies Allergy/AdvReac Type Severity Reaction Status Date / Time banana Allergy Mild Unknown Verified 06/01/22 14:58 [From BANANAS (FOOD/DRUG)] allergy reaction chocolate flavor Allergy Mild UNKNOWN Verified 06/01/22 14:58 [From CHOCOLATE (FOOD/DRUG)] PFSH [facility] Medical History (Updated 06/16/22 @ 02:48 by Jared Pak MD) Allergies Anxiety Anxiety disorder Asthma COPD (chronic obstructive pulmonary disease) Depression History of COVID-19 History of gastroesophageal reflux (GERD) Hyperlipidemia Hypertension Incontinence Migraine Mood disorder Seizure disorder Urinary tract infection Surgical History History of breast biopsy History of cholecystectomy History of colonoscopy History of hysterectomy Family History Father Lung cancer Sister Lung cancer Ovarian cancer Kidney disease Mother Kidney disease Social History Smoking Status: Current every day smoker tobacco type: cigarettes packs per day: 1 alcohol intake: never counseling provided: none substance use type: denies use current occupational status: disabled Travel in the last 8 weeks: None caregiver/support person: Yes household members: caregiver housing: assisted living facility lives independently: No do you feel safe at home: Yes victim of physical abuse: No victim of emotional abuse: No victim of sexual abuse: No would you like helpful sources: No ROS Obtained: Yes unobtainable due to mental status Physical Exam General General ap
--- NOTE | 2022-06-16 01:50 | CT_ITS ---
PROCEDURE INFORMATION: Exam: CTA Chest With Contrast Exam date and time: 06/16/2022 3:52 AM Age: 51 years old Clinical indication: Condition or disease; Lung condition and disease; Hypoxia TECHNIQUE: Imaging protocol: Computed tomographic angiography of the chest with contrast. 3D rendering (Not supervised by radiologist): MIP and/or 3D reconstructed images were created by the technologist. Total images: 41 Radiation optimization: All CT scans at this facility use at least one of these dose optimization techniques: automated exposure control; mA and/or kV adjustment per patient size (includes targeted exams where dose is matched to clinical indication); or iterative reconstruction. Contrast material: ISOVUE; Contrast volume: 70 ml; Contrast route: INTRAVENOUS (IV); COMPARISON: CT CHEST WO CON 08/08/2021 11:57 AM FINDINGS: Pulmonary arteries: The pulmonary artery is enlarged, suspicious for chronic pulmonary artery hypertension. Pulmonary artery evaluation of good technical quality with no pulmonary artery embolism identified. 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 Aorta: No thoracic aortic aneurysm, dissection or other acute thoracic aortic injury. Other arteries: Atherosclerosis is evident. Lungs: Multifocal airspace consolidations in both lungs includes subpleural consolidations of the anterior left upper lobe, favoring multifocal pneumonia with the possibility of atypical pneumonia. Benign granulomatous disease of the lung is noted. Dense subpleural right lung base consolidations favor combination of atelectasis with secondary pneumonia. Pleural spaces: Small loculated right sided pleural effusion with significant pleural thickening that suggests an element of chronicity. However, pleural thickening new from prior. No definite pleural lobularity but recommend correlation for any concern of potential malignant pleural effusion on the right. Heart: Unremarkable. No cardiomegaly. No pericardial effusion. Mediastinal space: Gas within the thoracic esophageal lumen could be evidence of gastroesophageal reflux. Lymph nodes: Prominent subcarinal and bilateral hilar lymphadenopathy includes an increasingly enlarged 23 x 35 mm subcarinalr lymph noderrrr, previously measuring 10 x 22 mm. Right hilar adenopathy also worsened and also indeterminate. Bones/joints: Old fracture deformity of the proximal left humerus. Anterior endplate osteophyte formation. Soft tissues: Unremarkable. IMPRESSION: 1. No pulmonary artery embolism identified. 2. Prominent subcarinal and bilateral hilar lymphadenopathy includes an increasingly enlarged 23 x 35 mm subcarinalr lymph noderrrr, previously measuring 10 x 22 mm. Right hilar adenopathy also worsened and also indeterminate. Recommend attention on any followup exams. 3. Multifocal airspace consolidations in both lungs includes subpleural consolidations of the anterior left upper lobe, favoring multifocal pneumonia with the possibility of atypical pneumonia. COVID-19 is a consideration but not specifically favored. Radiographic surveillance is recommended to document resolution. 4. Small loculated right sided pleural effusion with significant pleural thickening that suggests an element of chronicity. However, pleural thickening new from prior. No definite pleural lobularity but recommend correlation for any concern of potential malignant pleural effusion on the right. 5. Dense subpleural right lung base consolidations favor combination of atelectasis with secondary pneumonia. Radiographic surveillance is recommended to document re
[2022-06-16 01:56] LABS: Lactic Acid 1.3 mmol/L (0.7-2.1)
--- NOTE | 2022-06-16 02:06 | EXP.HP ---
History of Present Illness *Admission Date: 06/16/22 *Reason for visit:: Lethargy, Shortness of Air *History of present illness: Ms. Ardon is a 51-year-old female who is cared for in the home by her sister. She has a past medical history that is positive for Anxiety Disorder, Seizure Disorder, Hypertension and Mood Disorder. She presented to [facility] by EMS due to progressive weakness and shortness of air. The patient was seen on admission at bedside in the ER, her sister was present at bedside in the ER and gave the information for the history and physical. The patient's sister reports that she was being treated by her Primary Care Provider for Pneumonia since last week, she reports that despite taking antibiotics as prescribed that she became increasingly weak, was not eating, was having fevers and she called her PCP again today and was unable to get in for an appointment and due to her increasing weakness and lethargy she called EMS. On arrival to the home EMS found to patient in the 70's on room air with a blood pressure of 70/50. She was brought into the ER for evaluation. In the ER, the patient was also noted to be hypotensive with a blood pressure in the 72/42 range. She was also hypoxic, 88% on 4L nasal cannula. Temperature was 100.5. Respiratory rate was 22, BNP was 19,300. ABG showed a moderate hypoxemia. Covid and Flu were negative. Cxray showed an effusion versus a consolidation in the right lower lung lobe. In the ER the patient had low cultures drawn, lactic acid was drawn, CTA of the chest was ordered. The patient will be admitted with initial impression: Severe Sepsis and Acute Hypoxic Respiratory Failure. The plan of care was discussed with the patient's sister in length and detail at bedside prior to her admission. The sister verbalized understanding and agreement with the plan of care. [facility] Medical History Allergies Anxiety Anxiety disorder Asthma COPD (chronic obstructive pulmonary disease) Depression History of COVID-19 History of gastroesophageal reflux (GERD) Hyperlipidemia Hypertension Incontinence Migraine Mood disorder Pneumonia Seizure disorder Urinary tract infection Surgical History History of breast biopsy History of cholecystectomy History of colonoscopy History of hysterectomy Family History (Updated 06/16/22 @ 03:35 by Melyssa Pavon RN) Ovarian cancer Sister Kidney disease Sister Mother Family history of hypertension Family history of diabetes mellitus type II Family history of migraine headaches Family history of myocardial infarction Lung cancer Father Sister Family history of hyperlipidemia Social History (Updated 06/16/22 @ 03:35 by Melyssa Pavon RN) Smoking Status: Current every day smoker tobacco type: cigarettes packs per day: 1 alcohol intake: never counseling provided: none substance use type: denies use current occupational status: disabled Travel in the last 8 weeks: None caregiver/support person: Yes household members: caregiver housing: assisted living facility lives independently: No do you feel safe at home: Yes victim of physical abuse: No victim of emotional abuse: No victim of sexual abuse: No would you like helpful sources: No Review of Systems Review of Systems Review of systems:: unable to obtain Meds Home Medications and Allergies Home Medications Medication Instructions Recorded Confirmed Type acetaminophen 500 mg tablet 1,000 mg PO DAILY pain, fever #30 05/14/22 06/16/22 Rx tabs dicyclomine 10 mg capsule 10 mg PO BID IBS #60 caps 05/14/22 06/16/22 Rx gabapentin 100 mg capsule 100 mg PO BID nerve #60 caps 05/14/22 06/16/22 Rx trazodone 100 mg tablet 150 mg PO HS SLEEP #45 tabs 05/14/22 06/16/22 Rx albuterol sulfate 2.5 mg/3 mL 2.5 mg inhalation TID PRN COPD
[2022-06-16 02:11] LABS: D-Dimer 1.14 ug/mL (0.0-0.5)
--- NOTE | 2022-06-16 03:14 | PC.NURSE ---
PT ARRIVED TO FLOOR VIA STRETCHER AT THIS TIME
--- NOTE | 2022-06-16 03:33 | PC.NURSE ---
notified RN of patients o2.
--- NOTE | 2022-06-16 04:27 | PC.NURSE ---
Addendum entered by Will Ventura RN 06/16/22 04:30: bolus started infusing at 0115 Original Note: Pt received 1000ml NS bolus in ED
[2022-06-16 05:03] LABS: Troponin I 0.04 ng/ml (0.00-0.034)
--- NOTE | 2022-06-16 06:05 | EXP.SEPSISRE ---
[facility] Tissue Perfusion Eval Sepsis Re-Evaluation Performed: Yes Date Performed: 06/16/22 Time Performed: 06:05
[2022-06-16 06:28] LABS: ABG Base Excess 2.4 mmol/L (-2.4-2.3); ABG HCO3 28.6 mmhg (22.0-26.0); ABG Oxygen Saturation 90 % (90-100); ABG PH 7.31 mmol/L (7.35-7.45); ABG PO2 61.7 mmhg (80-100); ABG TCO2 30.4 mmhg (23-27)
[2022-06-16 06:31] LABS: Allen's Test acceptable
[2022-06-16 06:33] LABS: ABG PCO2 57.8 mmhg (35.0-45.0)
--- NOTE | 2022-06-16 07:39 | EXP.PHA.CONS ---
Pharmacy Consult Date: 06/16/22 Time: 07:40 Referring provider: DR. WAN Reason for Consult:: VANCOMYCIN DOSING Allergies Allergy/AdvReac Type Severity Reaction Status Date / Time banana Allergy Mild Unknown Verified 06/01/22 14:58 [From BANANAS (FOOD/DRUG)] allergy reaction chocolate flavor Allergy Mild UNKNOWN Verified 06/01/22 14:58 [From CHOCOLATE (FOOD/DRUG)] Home Medications Medication Instructions Recorded Confirmed Type acetaminophen 500 mg tablet 1,000 mg PO DAILY pain, fever #30 05/14/22 06/16/22 Rx tabs dicyclomine 10 mg capsule 10 mg PO BID IBS #60 caps 05/14/22 06/16/22 Rx gabapentin 100 mg capsule 100 mg PO BID nerve #60 caps 05/14/22 06/16/22 Rx trazodone 100 mg tablet 150 mg PO HS SLEEP #45 tabs 05/14/22 06/16/22 Rx albuterol sulfate 2.5 mg/3 mL 2.5 mg inhalation Q4HP PRN 06/16/22 06/16/22 History (0.083 %) solution for nebulization shortness of air clonidine HCl 0.1 mg tablet 0.1 mg PO DAILY mood 06/16/22 06/16/22 History dextromethorphan 20 mg-quinidine 1 cap PO DAILY mood 06/16/22 06/16/22 History 10 mg capsule (Nuedexta) divalproex 500 mg tablet,delayed 500 mg PO DAILY seizures 06/16/22 06/16/22 History release loperamide 2 mg capsule 2 mg PO Q6HP PRN Diarrhea 06/16/22 06/16/22 History New Prescriptions to Start Prescriptions: Height: 1.68 m Weight: 88.224 kg Laboratory Results:: Laboratory Results - last 24 hr 06/16/22 00:37: WBC 8.0, RBC 3.90 L, Hgb 11.8 L, Hct 38.4, MCV 98.4, MCH 30.4, MCHC 30.8 L, RDW 14.6, Plt Count 238, MPV 8.3, Neut % (Auto) 83.8 H, Lymph % (Auto) 10.6, Barnes % (Auto) 4.8, Eos % (Auto) 0.4, Baso % (Auto) 0.4, Neut # (Auto) 6.7, Lymph # (Auto) 0.9, Barnes # (Auto) 0.4, Eos # (Auto) 0.0, Baso # (Auto) 0.0 06/16/22 00:37: Sodium 140, Potassium 3.7, Chloride 97 L, Carbon Dioxide 32 H, Anion Gap 14.7, BUN 32 H, Creatinine 1.10 H, Estimated Creat Clear 100, Estimated GFR 52 L, Est GFR ( Amer) 63, Glucose 82, Calcium 7.7 L, Total Bilirubin 0.2, AST 31, ALT 12, Alkaline Phosphatase 166 H, Troponin I 0.05 H, NT-Pro-B Natriuret Pep 59152 H, Total Protein 6.1 L, Albumin 2.6 L, Globulin 3.5 H, Albumin/Globulin Ratio 0.7 L 06/16/22 00:37: Lactate 1.3 06/16/22 00:37: D-Dimer 1.14 H 06/16/22 00:43: ABG pH 7.37, ABG pCO2 56.1 H, ABG pO2 58.4 L, ABG HCO3 31.4 H, ABG Total CO2 33.1 H, ABG O2 Saturation 89 L, ABG Base Excess 6.1 H 06/16/22 01:02: SARS-CoV-2 (PCR) Not detected, Influenza A Untype (PCR) Not detected, Influenza Type B (PCR) Not detected 06/16/22 04:20: Troponin I 0.04 H 06/16/22 06:00: Specimen Source l radial, O2 % 3lpm, ABG pH 7.31 L, ABG pCO2 57.8 H, ABG pO2 61.7 L, ABG HCO3 28.6 H, ABG Total CO2 30.4 H, ABG O2 Saturation 90, ABG Base Excess 2.4 H, Bowen Test acceptable Medical History: Medical History (Updated 06/16/22 @ 03:35 by Melyssa Pavon RN) Allergies Anxiety Anxiety disorder Asthma COPD (chronic obstructive pulmonary disease) Depression History of COVID-19 History of gastroesophageal reflux (GERD) Hyperlipidemia Hypertension Incontinence Migraine Mood disorder Pneumonia Seizure disorder Urinary tract infection Assessment and Plan Assessment and plan all Dx Assessment and Plan for all problems:: Pharmacokinetic dosing service Objective: Patient: Floor: Age: 51 yo Serum creatinine: 1.10 mg/dL Height: 66.1 Inches Weight (kg): 88.2 Assessment: IBW (kg): 59.53 Dosing wt(kg): 88.2 Estimated Creatinine clearance (ml/min): 56.9 CRCL method: Cockcroft and Gault using ibw(default). Drug selected: Vancomycin Loading dose (mg): Vd (liters): 66.2 (factor used: 0.75 L/kg) Dougie (hr-1): 0.052 Half life (hrs): 13.33 CLvanco=?? 3.442 L/hr Recommended dose: 1500 mg Interval: 18 hrs Infusion time (hrs): 2.0 Predicted peak (mcg/mL): 35.4 Predicted trough (mcg/mL): 15.41 Tot
[2022-06-16 08:13] LABS: Troponin I 0.03 ng/ml (0.00-0.034)
--- NOTE | 2022-06-16 08:52 | PC.NURSE ---
Gave pt cup to collect sputum
[2022-06-16 10:06] LABS: Bordetella Pertussis Not Detected (NotDetected); Chlamydophila Pneumoniae, PCR Not Detected (NotDetected); Coronavirus 19, PCR Not Detected (NotDetected); Coronavirus 229E Not Detected (NotDetected); Coronavirus NL63 Not Detected (NotDetected); Coronavirus OC43 Not Detected (NotDetected); Coronovirus HKU1,PCR Not Detected (NotDetected); Human Metapneumovirus Not Detected (NotDetected); Influenza A, PCR Not Detected (NotDetected); Influenza AH1, 2009 Not Detected (NotDetected); Influenza AH1, PCR Not Detected (NotDetected); Influenza AH3,PCR Not Detected (NotDetected); Influenza B, PCR Not Detected (NotDetected); Mycoplasma Pneumoniae, PCR Not Detected (NotDetected); Parainfluenza 1, PCR Not Detected (NotDetected); Parainfluenza 2, PCR Not Detected (NotDetected); Parainfluenza 3, PCR Not Detected (NotDetected); Parainfluenza 4, PCR Not Detected (NotDetected); Respiratory Syncytial Virus Not Detected (NotDetected); Rhinovirus/Enterovirus Not Detected (NotDetected)
--- NOTE | 2022-06-16 10:38 | HMH.PHAINT1 ---
Pharmacy Intervention Comments: Medication reconciliation completed via external fill history and patient interview. -Aliya Barrios, PharmD Candidate 2022
[2022-06-16 22:35] LABS: Adenovirus,PCR Detected (NotDetected)
[2022-06-17] VITALS (29 sets, daily range): BP systolic 126–181; BP diastolic 63–95; PULSE 70–91; RESP 12–24; TEMP 36.6–36.9; O2SAT 90–97; BMI 30.9
--- NOTE | 2022-06-17 04:55 | PC.NURSE ---
pt has remained on 3L NC, O2 sats 93-96%, has a non productive cough, has complained of a headache two times this shift and was treated per yoni VILLANUEVA in [place]
[2022-06-17 07:24] LABS: Basophils % 0.5 % (0.1-2.0); Eosinophils % 0.4 % (0.1-12.0); Hematocrit 39.5 % (37.0-47.0); Lymphocytes % 19.4 % (10-50); Mean Corpuscular HGB Conc 30.4 g/dL (31.8-35.4); Mean Corpuscular Hemoglobin 29.9 pg (27.0-31.2); Mean Corpuscular Volume 98.3 fl (81-99); Mean Platelet Volume 9.2 fl (7.4-10.4); Monocytes # 0.2 K/mm3 (0.1-1.0); Monocytes % 4.6 % (1.7-9.3); Platelet Count 197 K/mm3 (142-424); Red Blood Count 4.02 M/mm3 (4.20-5.40); Red Cell Distribution Width 15.2 % (11.5-17.5); White Blood Count 5.3 K/mm3 (4.8-10.8)
[2022-06-17 07:54] LABS: Alanine Aminotransferase 8 U/L (12-78); Albumin Level 2.4 g/dl (3.5-5.0); Albumin/Globulin Ratio 0.7 (1.1-1.8); Alkaline Phosphatase 168 U/L (38-126); Anion Gap 13.1 mEq/L (5-15); Aspartate Amino Transferase 30 U/L (14-36); Blood Urea Nitrogen 38 mg/dl (7-17); Calcium 8.2 mg/dl (8.4-10.2); Carbon Dioxide 31 mmol/L (22.0-30.0); Chloride 100 mmol/L (98-107); Creatinine Clearance Estimated 131 mL/min (50-200); Estimated Glomerular Filt Rate 88 ml/min (>60); GFR (African American) 107 ML/MIN (>60); Globulin 3.5 g/dL (1.3-3.2); Glucose 89 mg/dl (74-100); Potassium 4.1 mmoL/L (3.5-5.1); Sodium 140 mmol/L (136-145); Total Protein,Serum 5.9 g/dl (6.3-8.2)
[2022-06-17 07:57] LABS: Bilirubin,Total 0.1 mg/dl (0.2-1.3)
[2022-06-17 07:59] LABS: Mycoplasma Pneumo IGM (Rapid) Non-Reactive (Non-Reactiv)
--- NOTE | 2022-06-17 09:50 | ECG_ITS ---
APPROVED REPORT Exam: Resting ECG HR:73 bpm ECG Measurements Heart Rate 73 AXES NH 146 P 65 QRSd 96 QRS 101 QT 401 T 92 QTc 427 Conclusion SINUS RHYTHM RIGHT AXIS DEVIATION [QRS AXIS > 100] PATTERN CONSISTENT WITH PULMONARY DISEASE MODERATE T-WAVE ABNORMALITY, CONSIDER ANTERIOR ISCHEMIA [-0.1+ mV T-WAVE IN V3/V4] ABNORMAL ECG UNCONFIRMED REPORT Electronically signed by : Praful Kaufman MD 06/17/2022 21:14:30
--- NOTE | 2022-06-17 10:19 | EXP.ACUTE.PN ---
Subjective *Date: 06/17/22 *Time: 14:31 Interval history: Ms. Sy remains quite weak. Still requiring significant supplemental oxygen. Remains afebrile overnight. Appears to be diuresing well with over 1L negative output today. Denies nausea, chest pain, vomiting, diarrhea. Continues to complain of shortness of breath. Medical Exam Vital signs and Labs for Last 24 Hours: Vital Signs Temp Pulse Pulse Resp BP Pulse Ox 06/17/22 08:00 98.0 F 85 18 134/80 95 06/17/22 06:00 90 06/17/22 06:13 90 06/17/22 06:13 89 06/17/22 06:13 94 L 06/17/22 04:00 98 F 72 17 132/68 93 L 06/17/22 00:00 80 06/16/22 20:00 90 06/17/22 01:15 85 06/17/22 01:15 85 06/17/22 00:00 97.8 F 91 H 17 157/89 H 93 L 06/16/22 20:00 98 F 70 17 136/64 96 06/16/22 20:00 96 06/16/22 18:35 73 06/16/22 18:35 75 06/16/22 18:35 92 L 06/16/22 16:00 80 06/16/22 15:54 98.3 F 93 H 18 120/63 92 L 06/16/22 12:00 74 06/16/22 12:55 82 06/16/22 12:55 80 06/16/22 11:33 98.2 F 120 H 18 110/60 92 L Intake and Output 06/16/22 06/17/22 06/17/22 23:59 07:59 15:59 Intake Total 480 / 1200 400 / 400 Output Total 1100 / 1100 900 / 900 Balance -620 / 100 -500 / -500 Intake: Intake, Oral Amount 480 / 1200 Intake, Total IV Amount 400 / 400 Cefepime HCl 2 gm In 0.9 % 100 / 100 Sodium Chloride 100 ml @ 200 mls/hr IV Q8H SHARRI Rx#:[id number] Vancomycin/Water For Inj (Peg) 300 / 300 1.5 gm In 300 ml @ 150 mls/hr IV Q18H SHARRI Rx#:[id number] Output: Output, Urine Amount 1100 / 1100 900 / 900 Other: Number of Unmeasured Voids 0 0 Weight 87.271 kg 87.27 kg Patient Weight 06/17/22 23:59 Weight 87.27 kg Laboratory Results - last 24 hr 06/16/22 09:59: Chlamy pneumoniae PCR Not detected, Adenovirus (PCR) Detected A, B. pertussis DNA (PCR) Not detected, Coronavirus OC43 (PCR) Not detected, Coronavirus HKU1 (PCR) Not detected, Coronavirus 229E (PCR) Not detected, SARS-CoV-2 (PCR) Not detected, Coronavirus NL63 (PCR) Not detected, Human Metapneumovir PCR Not detected, Influenza A (H1) PCR Not detected, Influ A (H1N1/09) PCR Not detected, Influenza A (H3) PCR Not detected, Influenza Type A (PCR) Not detected, Influenza Type B (PCR) Not detected, M. pneumoniae (PCR) Not detected, Parainfluenza 1 (PCR) Not detected, Parainfluenza 2 (PCR) Not detected, Parainfluenza 3 (PCR) Not detected, Parainfluenza 4 (PCR) Not detected, RSV (PCR) Not detected, Entero/Rhino (PCR) Not detected 06/17/22 07:00: Mycoplasma pneumon IgM Non-reactive 06/17/22 07:00: WBC 5.3 D, RBC 4.02 L, Hgb 12.0 L, Hct 39.5, MCV 98.3, MCH 29.9, MCHC 30.4 L, RDW 15.2, Plt Count 197, MPV 9.2, Neut % (Auto) 75.0, Lymph % (Auto) 19.4, Trinity % (Auto) 4.6, Eos % (Auto) 0.4, Baso % (Auto) 0.5, Neut # (Auto) 4.0, Lymph # (Auto) 1.0, Trinity # (Auto) 0.2, Eos # (Auto) 0.0, Baso # (Auto) 0.0 06/17/22 07:00: Sodium 140, Potassium 4.1, Chloride 100, Carbon Dioxide 31 H, Anion Gap 13.1, BUN 38 H, Creatinine 0.70 D, Estimated Creat Clear 131, Estimated GFR 88, Est GFR ( Amer) 107 D, Glucose 89, Calcium 8.2 L, Total Bilirubin 0.1 L, AST 30, ALT 8 L D, Alkaline Phosphatase 168 H, Total Protein 5.9 L, Albumin 2.4 L, Globulin 3.5 H, Albumin/Globulin Ratio 0.7 L I & O for Labs for Last 24 Hours: Intake & Output 06/14/22 06/15/22 06/16/22 06/17/22 23:59 23:59 23:59 23:59 Intake Total 1200 / 1200 400 / 400 Output Total 1100 / 1100 900 / 900 Balance 100 / 100 -500 / -500 Weight 88.224 kg 87.27 kg Microbiology Reports for the Last 24 Hours: Microbiology 06/16/22 00:50 Urine,Random Urine Culture - Preliminary NO GROWTH AFTER 24 HOURS Constitutional: Present mild distress, obese and chronically ill appearing Head: Present atraumatic and normocephalic ENT: Present normal exam Co
[2022-06-17 10:40] LABS: Erythrocyte Sedimentation Rate 23 mm/hr (0-30)
--- NOTE | 2022-06-17 10:58 | EXP.PULM.CON ---
History of Present Illness History of present illness: Ms. Ardon is a 51-year-old female greater than [id number] smoking history emphysematous changes on her imaging, previously seen in the hospital for hypercarbic respiratory failure and pleural effusions presented to the hospital complaining worsening respiratory's along with cough and productive phlegm for the last 1 to 2 weeks. Patient had a CT imaging on this admission that performed that showed right loculated pleural effusion and bilateral patchy airspace along with right lower lobe and middle lobe dense consolidation pulmonary was called for further evaluation. [facility] Medical History (Updated 06/17/22 @ 12:03 by Radha Du APRN) Acute diastolic CHF (congestive heart failure) Allergies Anxiety Anxiety disorder Asthma COPD (chronic obstructive pulmonary disease) Depression Hilar lymphadenopathy History of COVID-19 History of gastroesophageal reflux (GERD) Hyperlipidemia Hypertension Incontinence Migraine Mood disorder Pleural effusion on right Pneumonia Pneumonia Pulmonary hypertension Seizure disorder Urinary tract infection Surgical History History of breast biopsy History of cholecystectomy History of colonoscopy History of hysterectomy Family History (Updated 06/16/22 @ 03:35 by Melyssa Pavon RN) Father Lung cancer Sister Ovarian cancer Kidney disease Lung cancer Mother Kidney disease Other Family history of diabetes mellitus type II Family history of hyperlipidemia Family history of hypertension Family history of migraine headaches Family history of myocardial infarction Social History (Updated 06/16/22 @ 03:35 by Melyssa Pavon RN) Smoking Status: Current every day smoker tobacco type: cigarettes packs per day: 1 alcohol intake: never counseling provided: none substance use type: denies use current occupational status: disabled Travel in the last 8 weeks: None caregiver/support person: Yes household members: caregiver housing: assisted living facility lives independently: No do you feel safe at home: Yes victim of physical abuse: No victim of emotional abuse: No victim of sexual abuse: No would you like helpful sources: No Pulmonology Exam Inpatient Vital signs and Labs for Last 24 Hours: Temp Pulse Resp BP Pulse Ox FiO2 98.0 F 85 18 134/80 95 40 06/17/22 08:00 06/17/22 08:00 06/17/22 08:00 06/17/22 08:00 06/17/22 08:00 06/16/22 06:51 Laboratory Results - last 24 hr 06/16/22 09:59: Chlamy pneumoniae PCR Not detected, Adenovirus (PCR) Detected A, B. pertussis DNA (PCR) Not detected, Coronavirus OC43 (PCR) Not detected, Coronavirus HKU1 (PCR) Not detected, Coronavirus 229E (PCR) Not detected, SARS-CoV-2 (PCR) Not detected, Coronavirus NL63 (PCR) Not detected, Human Metapneumovir PCR Not detected, Influenza A (H1) PCR Not detected, Influ A (H1N1/09) PCR Not detected, Influenza A (H3) PCR Not detected, Influenza Type A (PCR) Not detected, Influenza Type B (PCR) Not detected, M. pneumoniae (PCR) Not detected, Parainfluenza 1 (PCR) Not detected, Parainfluenza 2 (PCR) Not detected, Parainfluenza 3 (PCR) Not detected, Parainfluenza 4 (PCR) Not detected, RSV (PCR) Not detected, Entero/Rhino (PCR) Not detected 06/17/22 07:00: Mycoplasma pneumon IgM Non-reactive 06/17/22 07:00: WBC 5.3 D, RBC 4.02 L, Hgb 12.0 L, Hct 39.5, MCV 98.3, MCH 29.9, MCHC 30.4 L, RDW 15.2, Plt Count 197, MPV 9.2, Neut % (Auto) 75.0, Lymph % (Auto) 19.4, [place] % (Auto) 4.6, Eos % (Auto) 0.4, Baso % (Auto) 0.5, Neut # (Auto) 4.0, Lymph # (Auto) 1.0, [place] # (Auto) 0.2, Eos # (Auto) 0.0, Baso # (Auto) 0.0 06/17/22 07:00: Sodium 140, Potassium 4.1, Chloride 100, Carbon Dioxide 31 H, Anion Gap 13.1, BUN 38 H, Creatinine 0.70 D, Estimated Creat Clear 131, Estimated GFR 88, Est GFR ( Amer) 107 D, Glucose 89, Calcium 8.2 L, Total Bilirubin 0.1 L, AST 30, ALT
--- NOTE | 2022-06-17 11:55 | EXP.CARD.CON ---
History of Present Illness History of Present Illness Consult date: 06/17/22 Requesting physician: Dickson Bryant Consult reason: shortness of breath Chief complaint: soa History of present illness: This is a 51-year-old female who presented to the emergency department by EMS for shortness of breath and progressive weakness. Most of her information is obtained from her charts because the patient does not really answer all of my questions. She mostly only answers yes and no questions. The patient sister reported in the emergency department that she had been being treated by her primary care provider for pneumonia since last week. But despite taking her antibiotics as prescribed she became increasingly more weak, she was not eating, she was having fevers and shortness of breath. The sister called the primary care provider and she was not able to get her in for an appointment but due to the persistent nature of her shortness of breath and weakness she called EMS and the patient was transported here to the hospital. The patient reports that she has been short of breath for a long time. She states that this is worse with exertion. Nothing really helps to improve the shortness of breath. She denies any chest pain or pressure. When EMS arrived she was found to have oxygen saturations in the 70s on room air and her blood pressure was 70/50. The patient remained hypotensive in the emergency department with oxygen saturations of 88% on 4 L nasal cannula. She did have a fever at 100.5. The patient's BNP was elevated at 19,300. Her flu and COVID are both negative. She is positive for adenovirus. The patient has an abnormal CTA of the chest. She denies any fevers, chills, nausea, vomiting or diarrhea. She denied having fevers although she had a fever when she arrived at the hospital and her sister reported her having fevers. The patient does have a mood disorder so her review of systems and history may not be the most accurate. [facility] Medical History (Updated 06/17/22 @ 12:03 by Radha Du APRN) Acute diastolic CHF (congestive heart failure) Allergies Anxiety Anxiety disorder Asthma COPD (chronic obstructive pulmonary disease) Depression Hilar lymphadenopathy History of COVID-19 History of gastroesophageal reflux (GERD) Hyperlipidemia Hypertension Incontinence Migraine Mood disorder Pleural effusion on right Pneumonia Pneumonia Pulmonary hypertension Seizure disorder Urinary tract infection Surgical History History of breast biopsy History of cholecystectomy History of colonoscopy History of hysterectomy Family History (Updated 06/16/22 @ 03:35 by Melyssa Pavon RN) Father Lung cancer Sister Ovarian cancer Kidney disease Lung cancer Mother Kidney disease Other Family history of diabetes mellitus type II Family history of hyperlipidemia Family history of hypertension Family history of migraine headaches Family history of myocardial infarction Social History (Updated 06/16/22 @ 03:35 by Melyssa Pavon RN) Smoking Status: Current every day smoker tobacco type: cigarettes packs per day: 1 alcohol intake: never counseling provided: none substance use type: denies use current occupational status: disabled Travel in the last 8 weeks: None caregiver/support person: Yes household members: caregiver housing: assisted living facility lives independently: No do you feel safe at home: Yes victim of physical abuse: No victim of emotional abuse: No victim of sexual abuse: No would you like helpful sources: No Review of Systems Review of Systems Review of systems:: pertinent systems reviewed and negative unless documented below Constitutional Constitutional: Reports system reviewed and no additional complaints, except as documented, Reports fatigue, Reports lethargy, Reports malaise and Reports weakness Eyes Eyes: Reports system
--- NOTE | 2022-06-17 13:59 | PC.NURSE ---
Pt to bronch @ 1315.
--- NOTE | 2022-06-17 14:21 | EXP.ANES.CKL ---
[facility] Medical History (Updated 06/17/22 @ 12:03 by Radha Du APRN) Acute diastolic CHF (congestive heart failure) Allergies Anxiety Anxiety disorder Asthma COPD (chronic obstructive pulmonary disease) Depression Hilar lymphadenopathy History of COVID-19 History of gastroesophageal reflux (GERD) Hyperlipidemia Hypertension Incontinence Migraine Mood disorder Pleural effusion on right Pneumonia Pneumonia Pulmonary hypertension Seizure disorder Urinary tract infection Surgical History History of breast biopsy History of cholecystectomy History of colonoscopy History of hysterectomy Family History (Updated 06/16/22 @ 03:35 by Melyssa Pavon RN) Father Lung cancer Sister Ovarian cancer Kidney disease Lung cancer Mother Kidney disease Other Family history of diabetes mellitus type II Family history of hyperlipidemia Family history of hypertension Family history of migraine headaches Family history of myocardial infarction Social History (Updated 06/16/22 @ 03:35 by Melyssa Pavon RN) Smoking Status: Current every day smoker tobacco type: cigarettes packs per day: 1 alcohol intake: never counseling provided: none substance use type: denies use current occupational status: disabled Travel in the last 8 weeks: None caregiver/support person: Yes household members: caregiver housing: assisted living facility lives independently: No do you feel safe at home: Yes victim of physical abuse: No victim of emotional abuse: No victim of sexual abuse: No would you like helpful sources: No [facility] Anesthesia Checklist Patient Identification Patient Identification: Arm Band and Verbal (Name & ) Structural Data Admitted From: Inpatient Planned Operative Procedure/s: bronchoscopy Consent for Planned Operative Procedure(s) Verified: Yes Additional verifications Anesthesia Reactions: No Airway Assessment C-Spine Mobility Assessed: Yes TMJ Mobility Assessed: Yes Dentition: Poor Dentition Neurological Assessment Level of Consciousness: Awake, Alert and Follows Commands Anesthesia Plan Anesthesia Risk discussed: Yes Anesthesia Plan: Not verified due to Patient Condition ASA Class: III Anesthesia Type: General
--- NOTE | 2022-06-17 14:38 | XR_ITS ---
FINAL REPORT CLINICAL HISTORY: BRONCH IN OR ft: 2.1 FINDINGS: Fluoroscopic guidance was provided for bronchoscopy. A single spot film was provided. 2.1 minutes of fluoroscopy time was utilized. IMPRESSION: 2.1 minutes of fluoroscopy time. Reviewed, Interpreted and Dictated by Jc Jackson MD Transcribed by Jarad Conti Authenticated and [facility]
--- NOTE | 2022-06-17 14:40 | EXP.BRONCH.N ---
Procedure: Date: 06/17/22 Patient Date of :: 1970 Procedure Performed:: Bronchoscopy, alveolar lavage and transbronchial lung biopsy Indications:: Non- resolving pneumonia Performing Provider:: Ayesha Armenta MD Referring Provider:: Dr. Bryant Sedation:: General anesthesia Procedure:: Bronchoscopy airway examination, bronchoalveolar lavage and transbronchial lung biopsy: A clean THEREPEAUTIC bronchoscopy was advanced through the ET tube and airways were examined up to subsegmental bronchi. Airways appeared diffusely inflamed both the right and left lung bronchi. Copious amount of mucoid secretions especially the right lower lobe, suctioned. No evidence active bleeding/old blood clots noted. Bronchoalveolar lavage was performed in the RIGHT LOWER LOBE with instillation of 60 cc normal saline with return of 30 cc of turbid back. BAL fluid was sent for cell count and differential along with bacterial fungal and AFB stain and cultures. Transbronchial biopsy was performed in the RIGHT LOWER LOBE with a total of 7 biopsies performed, 5 biopsy specimens were sent in formalin for cytopathologic examination. The other 2 biopsy samples, were sent one each in two separate normal saline specimen cups for bacterial fungal and AFB stain cultures. Special request was also made for the pathologist to evaluate for AFB and fungal organisms on the cytopathologic examination. Patient tolerated the procedure with no acute complications. We will follow the patient in pulmonary clinic in 7 to 10 days. Findings:: Please see the procedure note Specimens:: Bronchoalveolar lavage and transbronchial lung biopsy Recommendations:: Please see the procedure note and consult note from today Complications:: None Estimated blood obtained (mL): 5
--- NOTE | 2022-06-17 15:02 | P.PNANES_ITS ---
[facility] Anesthesia Record Part I Anesthesia Record I Intake, IV Amount: 500 Estimated blood loss (mL): 0 Urine output (mL): 200 Blood Pressure: 181/95 SaO2: 92 Pulse Rate: 89 Respiratory Rate: 12 Temperature: 98 F Patient is:: Awake and Stable Stable to PACU at:: 14:55
--- NOTE | 2022-06-17 15:46 | SUR.PHASEI ---
1540 called and gave detailed report to Caitie Winston, med/surgical aide [id number] transported via bed to med/surg room. vital signs stable. transported on 6L O2 via mask to room. denies pain at this time. left in stable condition with Caitie Winston RN at bedside.
[2022-06-17 16:58] LABS: Vancomycin,Trough 9.8 ug/mL (5.0-10.0)
--- NOTE | 2022-06-17 19:45 | PC.NURSE ---
VSS, Pt on 5 L NC a this time. CB in reach.
[2022-06-17 21:39] LABS: Vancomycin,Peak 29.4 ug/ml (11-39)
[2022-06-18] VITALS (13 sets, daily range): BP systolic 116–166; BP diastolic 71–92; PULSE 70–90; RESP 18–26; TEMP 36.1–36.8; O2SAT 90–98; BMI 29.6
--- NOTE | 2022-06-18 04:39 | PC.NURSE ---
pt has rested better this shift, has been repositioned Q2 hours, vallejo in place with 675 mL out so far this shift, remained on 5L NC with O2 sats 93-98%, lung sounds diminished on auscultation
--- NOTE | 2022-06-18 06:00 | PC.NURSE ---
pt has rested better this shift, currently on 3L NC with O2 sat 93%, lung sounds diminished, no complaints of pain or SOA, vallejo draining at bedside, 975 mL out so far this shift
--- NOTE | 2022-06-18 08:13 | EXP.PHA.CONS ---
Pharmacy Consult Date: 06/18/22 Time: 08:13 Referring provider: DR. WAN Reason for Consult:: VANCOMYCIN LEVELS Allergies Allergy/AdvReac Type Severity Reaction Status Date / Time banana Allergy Mild Unknown Verified 06/01/22 14:58 [From BANANAS (FOOD/DRUG)] allergy reaction chocolate flavor Allergy Mild UNKNOWN Verified 06/01/22 14:58 [From CHOCOLATE (FOOD/DRUG)] Home Medications Medication Instructions Recorded Confirmed Type acetaminophen 500 mg tablet 1,000 mg PO DAILY pain, fever #30 05/14/22 06/16/22 Rx tabs dicyclomine 10 mg capsule 10 mg PO BID IBS #60 caps 05/14/22 06/16/22 Rx gabapentin 100 mg capsule 100 mg PO BID nerve #60 caps 05/14/22 06/16/22 Rx trazodone 100 mg tablet 150 mg PO HS SLEEP #45 tabs 05/14/22 06/16/22 Rx albuterol sulfate 2.5 mg/3 mL 2.5 mg inhalation TID PRN COPD 06/16/22 06/16/22 History (0.083 %) solution for nebulization albuterol sulfate 90 mcg/actuation 1 inh inhalation QID PRN COPD 06/16/22 06/16/22 History aerosol inhaler bupropion HCl 300 mg 24 hr tablet, 300 mg PO DAILY mood 06/16/22 06/16/22 History extended release clonidine HCl 0.1 mg tablet 0.1 mg PO BID Anxiety 06/16/22 06/16/22 History dextromethorphan 20 mg-quinidine 1 cap PO Q12H mood 06/16/22 06/16/22 History 10 mg capsule (Nuedexta) divalproex 500 mg tablet,delayed 500 mg PO TID seizures 06/16/22 06/16/22 History release loperamide 2 mg capsule 2 mg PO Q6HP PRN Diarrhea 06/16/22 06/16/22 History New Prescriptions to Start Prescriptions: Height: 1.68 m Weight: 83.552 kg Laboratory Results:: Laboratory Results - last 24 hr 06/17/22 10:12: ESR 23 06/17/22 16:29: Vancomycin Trough 9.8 06/17/22 21:08: Vancomycin Peak 29.4 Medical History: Medical History (Updated 06/17/22 @ 12:03 by Radha Du APRN) Acute diastolic CHF (congestive heart failure) Allergies Anxiety Anxiety disorder Asthma COPD (chronic obstructive pulmonary disease) Depression Hilar lymphadenopathy History of COVID-19 History of gastroesophageal reflux (GERD) Hyperlipidemia Hypertension Incontinence Migraine Mood disorder Pleural effusion on right Pneumonia Pneumonia Pulmonary hypertension Seizure disorder Urinary tract infection Assessment and Plan Assessment and plan all Dx Assessment and Plan for all problems:: PATIENT'S VANCOMYCIN PEAK AND TROUGH LEVELS WERE 29.4 MCG/ML AND 9.8 MCG/ML, RESPECTIVELY. TROUGH LEVEL WAS DRAWN ONE HOUR LATE. PATIENT HAS BEEN RECEIVING VANCOMYCIN 1500 MG Q18H SINCE 06/16/22. OVERNIGHT INTERVAL WAS CHANGED TO VANCOMYCIN 1500 MG Q12H.
[2022-06-18 08:16] LABS: Basophils # 0.1 K/mm3 (0-0.2); Basophils % 1.7 % (0.1-2.0); Hematocrit 37.5 % (37.0-47.0); Hemoglobin 11.5 g/dL (12.2-16.2); Lymphocytes # 1.3 K/mm3 (0.7-4.5); Mean Corpuscular HGB Conc 30.8 g/dL (31.8-35.4); Mean Corpuscular Hemoglobin 29.6 pg (27.0-31.2); Mean Corpuscular Volume 96.1 fl (81-99); Mean Platelet Volume 9.1 fl (7.4-10.4); Monocytes # 0.2 K/mm3 (0.1-1.0); Monocytes % 4.5 % (1.7-9.3); Neutrophils # 1.8 K/mm3 (1.8-7.8); Neutrophils % 54.8 % (37.0-80.0); Platelet Count 159 K/mm3 (142-424); Red Cell Distribution Width 14.1 % (11.5-17.5); White Blood Count 3.2 K/mm3 (4.8-10.8)
[2022-06-18 08:58] LABS: Anion Gap 11.1 mEq/L (5-15); Blood Urea Nitrogen 32 mg/dl (7-17); Calcium 8.3 mg/dl (8.4-10.2); Carbon Dioxide 36 mmol/L (22.0-30.0); Chloride 95 mmol/L (98-107); Chol/HDL Ratio 7.1 (1-3.5); Cholesterol 107 mg/dl (140-200); Creatinine Clearance Estimated 176 mL/min (50-200); Estimated Glomerular Filt Rate 130 ml/min (>60); GFR (African American) 157 ML/MIN (>60); Glucose 92 mg/dl (74-100); HDL Cholesterol 15 mg/dl (40-60); Potassium 4.1 mmoL/L (3.5-5.1); Sodium 138 mmol/L (136-145); Triglycerides 156 mg/dl (30-150); VLDL Cholesterol 31 mg/dL (0-40)
[2022-06-18 09:09] LABS: Direct LDL Cholesterol 58.13 mg/dL (100-129)
--- NOTE | 2022-06-18 09:42 | EXP.PULM.PN ---
Subjective *Date: 06/18/22 *Time: 13:14 Interval history: Status post bronchoscopy yesterday but no acute respiratory events overnight. Patient admits improving respiratory symptoms. Pulmonology Exam Inpatient Vital signs and Labs for Last 24 Hours: Temp Pulse Resp BP Pulse Ox FiO2 98.3 F 73 18 166/89 H 91 L 40 06/18/22 04:00 06/18/22 06:08 06/18/22 04:00 06/18/22 04:00 06/18/22 06:08 06/16/22 06:51 Laboratory Results - last 24 hr 06/17/22 10:12: ESR 23 06/17/22 16:29: Vancomycin Trough 9.8 06/17/22 21:08: Vancomycin Peak 29.4 06/18/22 07:03: WBC 3.2 L D, RBC 3.90 L, Hgb 11.5 L, Hct 37.5, MCV 96.1, MCH 29.6, MCHC 30.8 L, RDW 14.1, Plt Count 159, MPV 9.1, Neut % (Auto) 54.8, Lymph % (Auto) 39.0, [place] % (Auto) 4.5, Eos % (Auto) 0.0 L, Baso % (Auto) 1.7, Neut # (Auto) 1.8, Lymph # (Auto) 1.3, [place] # (Auto) 0.2, Eos # (Auto) 0.0, Baso # (Auto) 0.1 06/18/22 07:03: Sodium 138, Potassium 4.1, Chloride 95 L, Carbon Dioxide 36 H, Anion Gap 11.1, BUN 32 H, Creatinine 0.50 L D, Estimated Creat Clear 176, Estimated GFR 130, Est GFR ( Amer) 157 D, Glucose 92, Calcium 8.3 L, Triglycerides 156 H, Cholesterol 107 L, LDL Cholesterol Direct 58.13 L, VLDL Cholesterol 31, HDL Cholesterol 15 L, Cholesterol/HDL Ratio 7.1 H I & O for Labs for Last 24 Hours: Intake & Output 06/15/22 06/16/22 06/17/22 06/18/22 23:59 23:59 23:59 23:59 Intake Total 1200 / 1200 1140 / 1140 Output Total 1100 / 1100 4000 / 4675 975 / 975 Balance 100 / 100 -2860 / -3535 -975 / -975 Weight 194 lb 8 oz 192 lb 6.358 oz 184 lb 3.2 oz Microbiology Reports for the Last 24 Hours: Microbiology 06/16/22 00:50 Urine,Random Urine Culture - Final NO GROWTH AFTER 48 HOURS 06/16/22 00:37 Blood Blood Culture - Preliminary NO GROWTH AFTER 48 HOURS 06/16/22 00:37 Blood Blood Culture - Preliminary NO GROWTH AFTER 48 HOURS 06/17/22 14:15 Bronchial Washings - Right Lower Lobe Gram Stain - Final Constitutional: Present moderate distress Head: Present normocephalic and atraumatic ENT: Present normal exam, normal oropharynx and mucous membranes moist Neck: Present normal inspection and full ROM Respiratory: Present respiratory distress, rhonchi, crackles, diminished air movement and able to speak in complete sentences; Absent accessory muscle use Cardiac: Present S1/S2, Tachycardia and radial pulses present GI: Present soft and distention; Absent tenderness or guarding Rectal (female): Present deferred (female): Present deferred Skin: Present intact; Absent cyanosis or jaundice Neuro: Present awake; Absent alert or oriented x 3 Extremities: Present normal inspection; Absent clubbing or cyanosis Psychiatric: Present normal affect and cooperative Assessment and Plan *Assessment and plan (1) Pneumonia: Status: Acute Category: Medical Code(s): J18.9 - Pneumonia, unspecified organism (2) Pleural effusion on right: Status: Acute Category: Medical Code(s): J90 - Pleural effusion, not elsewhere classified (3) Respiratory failure with hypoxia: Status: Acute Qualifiers: Chronicity: acute Qualified Code(s): J96.01 - Acute respiratory failure with hypoxia Category: Medical Code(s): J96.91 - Respiratory failure, unspecified with hypoxia (4) Acute respiratory failure with hypoxia and hypercapnia: Status: Acute Category: Medical Code(s): J96.01 - Acute respiratory failure with hypoxia; J96.02 - Acute respiratory failure with hypercapnia Plan #Acute hypoxic Hypercarbic respiratory failure: #Right lower lobe pneumonia: #Right pleural effusion: Ms. Ardon is a 51-year-old female greater than [id number] smoking history emphysematous changes on her imaging, previously seen in the hospital for hypercarbic respiratory failure and pleural effusions presented to the hospital compl
--- NOTE | 2022-06-18 09:44 | XR_ITS ---
FINAL REPORT CLINICAL HISTORY: PNM COMPARISON: June 16, 2022 FINDINGS: Mild cardiomegaly is noted. The mediastinum is within normal limits. There is improved airspace opacity in the right lung base. There are moderate right and mild left pleural effusions. There is no pneumothorax. The bony thorax is intact. IMPRESSION: Improving right base airspace opacity consistent with resolving pneumonia. Reviewed, Interpreted and Dictated by Jc Jackson MD Transcribed by Jarad Conti Authenticated and [facility]
--- NOTE | 2022-06-18 10:26 | EXP.CARD.PN ---
Subjective Subjective Date: 06/18/22 Time: 10:26 Principal diagnosis: diastolic chf Interval history: This is a 51-year-old white female who presented to EMS for shortness of breath and progressive weakness. The patient had been being treated outpatient for pneumonia and was not getting any improvement. When the patient arrived here she was hypoxic and hypotensive with a fever. The patient is currently being treated for pneumonia. She was also found to be in congestive heart failure. She was started on IV diuretics yesterday and did diurese nicely with a -3335 fluid balance overnight. Pulmonology was consulted due to her abnormal CTA and she did undergo bronchoscopy with alveolar lavage and transbronchial lung biopsy. Today she states that she is still short of breath but this is better than it was yesterday. She denies any chest pain or pressure. She denies any fever, chills, nausea, vomiting or diarrhea. She is unreliable with her review of systems and history at times however. But she does look better today and is sitting up in a chair. Exam Data for Last 24 hours Vital signs and Labs for Last 24 Hours: Temp Pulse Resp BP Pulse Ox FiO2 97.9 F 81 24 162/92 H 92 L 40 06/18/22 08:00 06/18/22 08:00 06/18/22 08:00 06/18/22 08:00 06/18/22 08:00 06/16/22 06:51 Laboratory Results - last 24 hr 06/17/22 10:12: ESR 23 06/17/22 16:29: Vancomycin Trough 9.8 06/17/22 21:08: Vancomycin Peak 29.4 06/18/22 07:03: WBC 3.2 L D, RBC 3.90 L, Hgb 11.5 L, Hct 37.5, MCV 96.1, MCH 29.6, MCHC 30.8 L, RDW 14.1, Plt Count 159, MPV 9.1, Neut % (Auto) 54.8, Lymph % (Auto) 39.0, [place] % (Auto) 4.5, Eos % (Auto) 0.0 L, Baso % (Auto) 1.7, Neut # (Auto) 1.8, Lymph # (Auto) 1.3, [place] # (Auto) 0.2, Eos # (Auto) 0.0, Baso # (Auto) 0.1 06/18/22 07:03: Sodium 138, Potassium 4.1, Chloride 95 L, Carbon Dioxide 36 H, Anion Gap 11.1, BUN 32 H, Creatinine 0.50 L D, Estimated Creat Clear 176, Estimated GFR 130, Est GFR ( Amer) 157 D, Glucose 92, Calcium 8.3 L, Triglycerides 156 H, Cholesterol 107 L, LDL Cholesterol Direct 58.13 L, VLDL Cholesterol 31, HDL Cholesterol 15 L, Cholesterol/HDL Ratio 7.1 H I & O for Last 24 hours: Intake & Output 06/15/22 06/16/22 06/17/22 06/18/22 23:59 23:59 23:59 23:59 Intake Total 1200 / 1200 1140 / 1140 Output Total 1100 / 1100 4000 / 4675 975 / 975 Balance 100 / 100 -2860 / -3535 -975 / -975 Weight 194 lb 8 oz 192 lb 6.358 oz 184 lb 3.2 oz Microbiology Reports for the Last 24 Hours: Microbiology 06/16/22 00:50 Urine,Random Urine Culture - Final NO GROWTH AFTER 48 HOURS 06/16/22 00:37 Blood Blood Culture - Preliminary NO GROWTH AFTER 48 HOURS 06/16/22 00:37 Blood Blood Culture - Preliminary NO GROWTH AFTER 48 HOURS 06/17/22 14:15 Bronchial Washings - Right Lower Lobe Gram Stain - Final Constitutional Constitutional: no acute distress, average body habitus and chronically ill appearing *Routine HEENT Exam Head: Present normocephalic and atraumatic ENT: Present mucous membranes moist *Routine Neck Exam Neck: Present supple, full ROM and normal carotid upstroke; Absent JVD, carotid bruit or lymphadenopathy *Routine Respiratory Exam Respiratory: Present rhonchi, wheezes, crackles, normal respiratory effort and symmetric chest movement *Routine Cardiovascular Exam Cardiovascular: Present RRR, Normal S1 and Normal S2; Absent murmur or gallop *Routine Abdominal Exam Abdominal: Present soft and normoactive bowel sounds; Absent tenderness, distended or organomegaly *Routine Extremities Exam Extremities: Present full ROM, pulses intact and normal capillary refill; Absent cyanosis, clubbing or edema *Routine Skin Exam Skin: Present intact and warm; Absent erythema *Routine Neurological Exam Neurological: Present alert, oriented X3 and CN II-XII intact; Absent sensory deficit or motor deficit Routine Psychiatric Ex
--- NOTE | 2022-06-18 11:20 | EXP.ACUTE.PN ---
Subjective *Date: 06/18/22 *Time: 14:28 Interval history: Patient appears more stable this morning. Still having shortness of breath. Denies any chest pain, nausea, vomiting. Bronchoscopy performed yesterday, culture still pending. Patient tolerating p.o. intake without difficulty. Up to bedside chair today. PT working with patient. Responding well to diuresis with over 1 L negative output in the past 24-hour Medical Exam Vital signs and Labs for Last 24 Hours: Vital Signs Temp Pulse Pulse Resp BP BP Pulse Ox 06/18/22 08:00 97.9 F 81 24 162/92 H 92 L 06/18/22 06:08 73 06/18/22 06:08 72 06/18/22 06:08 91 L 06/18/22 04:00 80 06/18/22 00:00 70 06/18/22 04:00 98.3 F 79 18 166/89 H 98 06/18/22 00:34 81 06/18/22 00:34 79 06/18/22 00:00 98.3 F 76 18 137/74 94 L 06/17/22 20:00 80 06/17/22 20:00 94 L 06/17/22 22:35 98.2 F 76 20 151/88 H 93 L 06/17/22 21:35 98.1 F 77 20 150/82 H 94 L 06/17/22 20:35 98.0 F 78 22 142/84 H 94 L 06/17/22 19:35 98.2 F 76 20 143/83 H 93 L 06/17/22 18:35 98.4 F 77 22 151/88 H 97 06/17/22 18:05 98.4 F 78 18 164/82 H 97 06/17/22 17:35 98.1 F 72 20 150/89 H 91 L 06/17/22 17:05 98.0 F 70 22 154/85 H 90 L 06/17/22 16:35 98.1 F 78 24 140/84 93 L 06/17/22 16:20 98.0 F 83 20 151/92 H 93 L 06/17/22 16:05 98.1 F 78 20 157/85 H 93 L 06/17/22 15:50 98.0 F 83 22 149/68 H 93 L 06/17/22 18:47 77 06/17/22 18:47 78 06/17/22 18:47 92 L 06/17/22 16:05 77 06/17/22 12:00 80 06/17/22 15:45 81 20 126/74 92 L 06/17/22 15:35 82 22 131/66 94 L 06/17/22 15:25 83 20 156/63 H 93 L 06/17/22 15:15 88 22 163/84 H 93 L 06/17/22 15:05 87 20 169/82 H 95 06/17/22 14:55 98.0 F 89 12 181/95 H 92 L 06/17/22 11:37 98.0 F 84 18 127/75 97 06/17/22 15:03 98 F 89 12 181/95 H Intake and Output 06/17/22 06/18/22 06/18/22 23:59 07:59 15:59 Intake Total 240 / 1140 Output Total 1400 / 4675 975 / 975 Balance -1160 / -3535 -975 / -975 Intake: Intake, Oral Amount 240 / 240 Output: Output, Urine Amount 1400 / 4675 975 / 975 Other: Number of Unmeasured Voids 0 Number of Bowel Movements 1 Weight 83.552 kg 83.552 kg Patient Weight 06/18/22 23:59 Weight 83.552 kg Laboratory Results - last 24 hr 06/17/22 16:29: Vancomycin Trough 9.8 06/17/22 21:08: Vancomycin Peak 29.4 06/18/22 07:03: WBC 3.2 L D, RBC 3.90 L, Hgb 11.5 L, Hct 37.5, MCV 96.1, MCH 29.6, MCHC 30.8 L, RDW 14.1, Plt Count 159, MPV 9.1, Neut % (Auto) 54.8, Lymph % (Auto) 39.0, [place] % (Auto) 4.5, Eos % (Auto) 0.0 L, Baso % (Auto) 1.7, Neut # (Auto) 1.8, Lymph # (Auto) 1.3, [place] # (Auto) 0.2, Eos # (Auto) 0.0, Baso # (Auto) 0.1 06/18/22 07:03: Sodium 138, Potassium 4.1, Chloride 95 L, Carbon Dioxide 36 H, Anion Gap 11.1, BUN 32 H, Creatinine 0.50 L D, Estimated Creat Clear 176, Estimated GFR 130, Est GFR ( Amer) 157 D, Glucose 92, Calcium 8.3 L, Triglycerides 156 H, Cholesterol 107 L, LDL Cholesterol Direct 58.13 L, VLDL Cholesterol 31, HDL Cholesterol 15 L, Cholesterol/HDL Ratio 7.1 H I & O for Labs for Last 24 Hours: Intake & Output 06/15/22 06/16/22 06/17/22 06/18/22 23:59 23:59 23:59 23:59 Intake Total 1200 / 1200 1140 / 1140 Output Total 1100 / 1100 4000 / 4675 975 / 975 Balance 100 / 100 -2860 / -3535 -975 / -975 Weight 88.224 kg 87.27 kg 83.552 kg Microbiology Reports for the Last 24 Hours: Microbiology 06/16/22 00:50 Urine,Random Urine Culture - Final NO GROWTH AFTER 48 HOURS 06/16/22 00:37 Blood Blood Culture - Preliminary NO GROWTH AFTER 48 HOURS 06/16/22 00:37 Blood Blood Culture - Preliminary NO GROWTH AFTER 48 HOURS 06/17/22 14:15
--- NOTE | 2022-06-18 11:34 | HMH.PTEV ---
Physical Therapy Evaluation Rehab PT IP Evaluation Start: 06/17/22 14:37 Freq: ONCE Status: Active Protocol: Document 06/18/22 11:29 PHORNE (Rec: 06/18/22 11:34 PHORNE [id number]) Subjective/History History History 51 yowf adm to [facility] with COPD exac and PNA. She lives with her sister who is primary grounds caretaker as she has developmental disability. She has 1-2 steps to enter the home and is generally independent with ambulation at baseline. Subjective Subjective She reports feeling much betetr since admission. Agrees to ambulation with encouragement. Rehab PT IP Eval Objective Appearance Patient Behavior Appropriate,Confused,Patient Baseline Patient Orientation Person Difficulty following instructions mild Speech Pattern Clear Ambulation Patient Able to Ambulate Yes Ambulation Observation IP General Gait Pattern Observation Wide Based Gait Ambulation Distance (feet) 40 Ambulation Assistive Device None Ambulation Ability Contact Guard/Hand Hold Balance Ability to Arise Able, uses arms to help Sitting Balance Steady, safe Standing Balance Steady, wide stance Dynamic Sitting Balance Ability Good Dynamic Standing Balance Ability Fair Transfers Bed Transfer Ability Contact Guard/Hand Hold Chair Transfer Ability Contact Guard/Hand Hold Sit to Stand Bed Transfer Ability Contact Guard/Hand Hold Sit to Stand Chair Transfer Ability Contact Guard/Hand Hold ROM All Extremities PT ROM Status WFL MMT All Extremities PT MMT WFL Rehab PT IP prob,goals,plan Problems Date of Evaluation: 06/18/22 PT IP Problems Bed Mobility,Transfers,Gait Rehab Potential Rehab Potential Good Plan PT Intervention Plan Bed Mobility,Transfers,Gait, Therapeutic Exercise PT Plan Frequency BID Duration LOS Discharge Goals Bed Transfer Ability Supervision/Stand by Sit to Stand Chair Transfer Ability Supervision/Stand by Ambulation Assistive Device None Ambulation Distance (feet) 50 Discharge Plan PT Discharge Plan Pt would currently benefit from short term rehabilitation to regain strength and en
--- NOTE | 2022-06-18 12:39 | SW/DCPLANNER ---
I attempted to call and speak with this patient's sister regarding plans once medically stable for discharge: no answer at this time/ VM left. Patient may discharge home over the weekend.
--- NOTE | 2022-06-18 13:56 | DIET.NUTRFU ---
Saw patient earlier this AM and patient had refused breakfast complained of nausea. She aso reported she does not eat good at home either. Sister is a employee here and information was verified. Sister normally helps with menu selection, patient is unable to complete menu d/t learning disability. This RD helped with lunch selection, sent up pizza/ice cream and pepsi. She consumed 100% ice cream and requested a second. Did not want pizza, continued to complain of nausea. Will continue to work with sister to provide foods she likes, she is on regular diet
[2022-06-18 15:09] LABS: Legionella pneumophila Urinary Negative (Negative)
[2022-06-18 16:21] LABS: Body Fluid Culture, Sterile Not indicated. (.); Organism ID Not indicated. (.); Specimen Source Urine (.); Streptococcus pneumoniae Ag Negative (Negative)
--- NOTE | 2022-06-18 17:50 | EXP.ANES.II ---
[facility] Anesthesia Record Part II Anesthesia Record Part II Discharge Time: 15:25 Destination: Surgical Day Care (OP Surgery) PACU nurse assessment reviewed?: Yes Patient Condition:: Good Anesthesia Complications:: None Swallowing reflex intact?: Yes Cyanosis?: No Blood Pressure: 126/74 Pulse Rate: 81 Temperature: 97.0 F Mental Status: Alert & Oriented Pain level:: 0 Nausea and/or vomitting:: None Intake, IV Amount: 0
--- NOTE | 2022-06-18 19:19 | PC.NURSE ---
Pt is A/O to self which is pts baseline. She has been up to the chair a couple times today. She is been on 3L NC all day. She has been complaining of hip and back pain. She has hx of osteoarthritis of the hips. Dr torres is aware and gave Gabapentin. She had a few crying fits about wanting to go home. We reassured her that her sister would come visit and she did. After that she was fine. She has not eaten great. Sister states that this is normal. She has some expiratory wheezing, and diminished.
[2022-06-19] VITALS (14 sets, daily range): BP systolic 123–140; BP diastolic 64–77; PULSE 70–90; RESP 18–24; TEMP 36.6–36.9; O2SAT 87–94; BMI 29.9
[2022-06-19 05:40] LABS: Basophils # 0.1 K/mm3 (0-0.2); Basophils % 2.5 % (0.1-2.0); Eosinophils % 0.3 % (0.1-12.0); Hematocrit 36.5 % (37.0-47.0); Hemoglobin 11.6 g/dL (12.2-16.2); Lymphocytes # 2.4 K/mm3 (0.7-4.5); Lymphocytes % 49.3 % (10-50); Mean Corpuscular HGB Conc 31.6 g/dL (31.8-35.4); Mean Corpuscular Hemoglobin 29.9 pg (27.0-31.2); Mean Corpuscular Volume 94.6 fl (81-99); Mean Platelet Volume 9.1 fl (7.4-10.4); Monocytes # 0.3 K/mm3 (0.1-1.0); Monocytes % 6.4 % (1.7-9.3); Neutrophils % 41.4 % (37.0-80.0); Platelet Count 132 K/mm3 (142-424); Red Blood Count 3.86 M/mm3 (4.20-5.40); Red Cell Distribution Width 14.1 % (11.5-17.5); White Blood Count 4.9 K/mm3 (4.8-10.8)
[2022-06-19 06:25] LABS: Anion Gap 9.8 mEq/L (5-15); Blood Urea Nitrogen 28 mg/dl (7-17); Calcium 8.4 mg/dl (8.4-10.2); Carbon Dioxide 40 mmol/L (22.0-30.0); Chloride 93 mmol/L (98-107); Creatinine Clearance Estimated 148 mL/min (50-200); Estimated Glomerular Filt Rate 105 ml/min (>60); GFR (African American) 128 ML/MIN (>60); Glucose 75 mg/dl (74-100); Potassium 3.8 mmoL/L (3.5-5.1); Sodium 139 mmol/L (136-145)
[2022-06-19 06:29] LABS: Vancomycin,Trough 9.6 ug/mL (5.0-10.0)
--- NOTE | 2022-06-19 07:09 | EXP.DC.SUM ---
General Admission date:: 06/16/22 Discharge date: 06/20/22 HPI HPI HPI: Ms. Ardon is a 51-year-old female who is cared for in the home by her sister. She has a past medical history that is positive for Anxiety Disorder, Seizure Disorder, Hypertension and Mood Disorder. She presented to [facility] by EMS due to progressive weakness and shortness of air. The patient was seen on admission at bedside in the ER, her sister was present at bedside in the ER and gave the information for the history and physical. The patient's sister reports that she was being treated by her Primary Care Provider for Pneumonia since last week, she reports that despite taking antibiotics as prescribed that she became increasingly weak, was not eating, was having fevers and she called her PCP again today and was unable to get in for an appointment and due to her increasing weakness and lethargy she called EMS. On arrival to the home EMS found to patient in the 70's on room air with a blood pressure of 70/50. She was brought into the ER for evaluation. In the ER, the patient was also noted to be hypotensive with a blood pressure in the 72/42 range. She was also hypoxic, 88% on 4L nasal cannula. Temperature was 100.5. Respiratory rate was 22, BNP was 19,300. ABG showed a moderate hypoxemia. Covid and Flu were negative. Cxray showed an effusion versus a consolidation in the right lower lung lobe. In the ER the patient had low cultures drawn, lactic acid was drawn, CTA of the chest was ordered. The patient will be admitted with initial impression: Severe Sepsis and Acute Hypoxic Respiratory Failure. The plan of care was discussed with the patient's sister in length and detail at bedside prior to her admission. The sister verbalized understanding and agreement with the plan of care. Hospital Course Hospital Course Hospital Course: 51-year-old female with past medical history of mood disorder, seizure disorder, cared for in the home by sister.? Presents due to increased lethargy and shortness of air following being diagnosed with CAP and treated with antibiotic. ? Clinically did not improve.? Has shown mild improvement/stabilization since admission.? Continuing to require 6 L nasal cannula oxygen.? Appears to have multifocal pneumonia, positive for adenovirus.? Pulmonology and cardiology consulted, appreciate their assistance in care. Acute Hypoxic Respiratory Failure Multifocal pneumonia Adenovirus Loculated pleural effusions -Concern for multifocal pneumonia. Pulmonology consulted, bronchoscopy performed. No growth on BAL samples by time of discharge. Comprehensive respiratory panel showed adenovirus. Continue supplemental oxygen with goal saturation greater 90%, discharged on 2 L. Plan to continue duo nebs. Will complete antibiotics for total 7-day course with levofloxacin. Received 2 days of steroids while admitted because of increased wheezing and concern for bronchoconstriction/COPD component. Not discharged on steroids. CHF, suspected diastolic Volume overload/elevated BNP -Echo obtained showing preserved ejection fraction, diastolic parameters inconclusive. Cardiology consulted, appreciate their recommendations.? Continue diuresis. Transitioned to Lasix daily at discharge. Imaging concerning for pulmonary congestion/hypertension. No interventions performed during hospitalization further evaluation in the outpatient setting. Mood Disorder: Continued home medications Seizure Disorder: Continued home medications Medically stable for discharge home. Needs close follow-up with pulmonology and repeat imaging in the outpatient setting. This is scheduled. Discussed patient's case with sister. Also would benefit from PT as an outpatient, case management to assist in scheduling this. Oxygen ordered through [facility]. Exam Data for Last 24 hours Vital signs and Labs for Last 24 Hours: Temp Pulse Resp BP Pulse Ox FiO2
--- NOTE | 2022-06-19 13:55 | EXP.ACUTE.PN ---
Subjective *Date: 06/19/22 *Time: 15:06 Interval history: Initial evaluation significantly wheezy and congested. Requiring increased oxygen requirement with 4 L this morning. Have been able to wean back down to 2 L through the morning. Denies any nausea, vomiting, chest pain. Labs reviewed, white cell count remains normal. Responded to nebulizers. Using incentive spirometer today. Doing better eating her meals. Up to bedside chair today. PT working with patient. Responding well to diuresis. Medical Exam Vital signs and Labs for Last 24 Hours: Vital Signs Temp Pulse Pulse Resp BP BP Pulse Ox 06/19/22 12:00 98.3 F 78 24 139/72 93 L 06/19/22 11:24 77 06/19/22 11:24 78 06/19/22 11:24 88 L 06/19/22 08:00 94 L 06/19/22 08:00 98.5 F 81 24 130/72 90 L 06/19/22 07:50 81 06/19/22 07:50 81 06/19/22 07:50 87 L 06/19/22 06:12 81 06/19/22 06:12 81 06/19/22 06:12 91 L 06/19/22 04:00 70 06/19/22 03:56 98.0 F 76 22 140/64 91 L 06/19/22 00:00 70 06/19/22 00:26 76 06/19/22 00:26 80 06/18/22 23:41 97.7 F 83 18 116/78 95 06/18/22 20:00 70 06/18/22 19:57 97.8 F 77 20 137/71 90 L 06/18/22 18:48 77 06/18/22 18:48 80 06/18/22 18:48 93 L 06/18/22 16:00 98.2 F 90 26 H 153/91 H 94 L 06/18/22 16:00 80 06/18/22 17:50 97.0 F L 81 126/74 Intake and Output 06/18/22 06/19/22 06/19/22 23:59 07:59 15:59 Intake Total 240 / 480 240 / 240 Output Total 1049 400 / 400 Balance -810 / -1545 -400 / -160 240 / -160 Intake: Intake, Oral Amount 240 / 480 240 / 240 Intake, Total IV Amount 0 / 0 Output: Output, Urine Amount 1049 Output, Urine Amount (Catheter) 400 / 400 Lovett 400 / 400 Other: Number of Unmeasured Voids 0 Number of Bowel Movements 1 Weight 84.567 kg Patient Weight 06/19/22 23:59 Weight 84.567 kg Laboratory Results - last 24 hr 06/16/22 00:50: Fluid Culture Not indicated., S. pneumoniae Antigen Negative, S. pneumoniae Ag Source Urine, Organism ID Not indicated. 06/16/22 00:50: Ur L.pneumophila Ag Negative 06/19/22 05:30: Sodium 139, Potassium 3.8, Chloride 93 L, Carbon Dioxide 40 H, Anion Gap 9.8, BUN 28 H, Creatinine 0.60, Estimated Creat Clear 148, Estimated GFR 105, Est GFR ( Amer) 128, Glucose 75, Calcium 8.4 06/19/22 05:30: Vancomycin Trough 9.6 06/19/22 05:30: WBC 4.9 D, RBC 3.86 L, Hgb 11.6 L, Hct 36.5 L, MCV 94.6, MCH 29.9, MCHC 31.6 L, RDW 14.1, Plt Count 132 L, MPV 9.1, Neut % (Auto) 41.4, Lymph % (Auto) 49.3, Mccone % (Auto) 6.4, Eos % (Auto) 0.3, Baso % (Auto) 2.5 H, Neut # (Auto) 2.0, Lymph # (Auto) 2.4, Mccone # (Auto) 0.3, Eos # (Auto) 0.0, Baso # (Auto) 0.1 I & O for Labs for Last 24 Hours: Intake & Output 06/16/22 06/17/22 06/18/22 06/19/22 23:59 23:59 23:59 23:59 Intake Total 1200 / 1200 1140 / 1140 480 / 480 240 / 240 Output Total 1100 / 1100 4000 / 4675 2024 400 / 400 Balance 100 / 100 -2860 / -3535 -1545 / -1545 -160 / -160 Weight 88.224 kg 87.27 kg 83.552 kg 84.567 kg Microbiology Reports for the Last 24 Hours: Microbiology 06/16/22 13:13 Nose MRSA Culture - Final Negative 06/17/22 14:15 Transbronchial Biopsy - Right Lower Lobe Gram Stain - Final 06/17/22 14:15 Transbronchial Biopsy - Right Lower Lobe Surgical Biopsy Culture - Preliminary Constitutional: Present no acute distress, obese and chronically ill appearing Head: Present atraumatic and normocephalic ENT: Present normal exam Comment:: hirsutism Neck: Present normal inspection Respiratory: Present rhonchi, wheezes, crackles (Bilateral bases) and diminished air movement Cardiac: Present Reg Rate and Rhythm GI: Present normal bowel sounds; Absent tenderness Extremities: Present normal inspection, full ROM and edema (trace) Skin:
[2022-06-20] VITALS (7 sets, daily range): BP systolic 138–155; BP diastolic 63–73; PULSE 64–89; RESP 17–20; TEMP 36.4–36.8; O2SAT 79–94; BMI 29.6
--- NOTE | 2022-06-20 04:32 | PC.NURSE ---
No acute changes since previous assessment. Pt maintaining O2 sat >90% on 2 L NC. Lung sounds - rhonchi, wheezes on R side, diminished on L side. Pt voiding per vallejo cath. No c/o or needs voiced at this time. Call light in reach, bed alarm on, seizure pads in place.
[2022-06-20 09:18] LABS: Chloride 92 mmol/L (98-107); Potassium 4.1 mmoL/L (3.5-5.1); Sodium 136 mmol/L (136-145)
[2022-06-20 09:21] LABS: Blood Urea Nitrogen 23 mg/dl (7-17); Calcium 8.1 mg/dl (8.4-10.2); Creatinine Clearance Estimated 176 mL/min (50-200); Estimated Glomerular Filt Rate 130 ml/min (>60); GFR (African American) 157 ML/MIN (>60); Glucose 85 mg/dl (74-100)
[2022-06-20 09:48] LABS: Basophils # 0.1 K/mm3 (0-0.2); Basophils % 1.9 % (0.1-2.0); Eosinophils % 0.1 % (0.1-12.0); Hematocrit 35.3 % (37.0-47.0); Hemoglobin 11.5 g/dL (12.2-16.2); Lymphocytes # 2.1 K/mm3 (0.7-4.5); Lymphocytes % 48.7 % (10-50); Mean Corpuscular HGB Conc 32.6 g/dL (31.8-35.4); Mean Corpuscular Hemoglobin 30.1 pg (27.0-31.2); Mean Corpuscular Volume 92.4 fl (81-99); Monocytes # 0.4 K/mm3 (0.1-1.0); Neutrophils # 1.8 K/mm3 (1.8-7.8); Neutrophils % 41.4 % (37.0-80.0); Platelet Count 95 K/mm3 (142-424); Red Blood Count 3.82 M/mm3 (4.20-5.40); Red Cell Distribution Width 14.1 % (11.5-17.5); White Blood Count 4.3 K/mm3 (4.8-10.8)
--- NOTE | 2022-06-20 09:55 | HMH.PHAINT1 ---
Pharmacy Intervention Comments: Discharge counseling completed at bedside with the patient. Discussed new medications (furosemide, levofloxacin), continued medications, and discontinued medications (clonidine). Overviewed indication and possible side effects/mitigation strategies of each new medication. Patient verbalized understanding and has no questions or concerns at this time. -Aliya Barrios, PharmD Candidate 2022
[2022-06-20 10:34] LABS: Anion Gap 7.1 mEq/L (5-15); Carbon Dioxide 41 mmol/L (22.0-30.0)
--- NOTE | 2022-06-20 11:16 | PC.NURSE ---
pt has been discahrged from the facility. Took all of her belongigns with her. DC education given to sister and pt. voiced understanding of follow up appts and xray, as well as home o2. Saline lockx3 discontinued. F/C discontinued and pt was able to void x1.
--- NOTE | 2022-06-21 15:51 | CARE MANAGER ---
Spoke with patient sister for post-discharge phone interview, she states that patient is doing well and has no needs at this time.
[2022-06-26 19:09] LABS: 1,25 Dihydroxy Vitamin D 22 pg/mL (.); 1,25-Dihydroxy, Vitamin D-2 20 pg/mL (.); 1,25-Dihydroxy, Vitamin D-3 <10 pg/mL (.)
== END 2022-06-20 11:10 | disposition home or self-care (01) | DRG 853 ==
LOC: ER 00:43 → 2ND 01:35
PROVIDERS: Internal Medicine Pulmonary Disease; Nurse Practitioner Family; Admitting Provider Internal Medicine Adolescent Medicine; Emergency Provider Emergency Medicine; PCP Nurse Practitioner Family; Visit Provider Internal Medicine Adolescent Medicine
PROC: 0BBF8ZX Excision of Right Lower Lung Lobe, Via Natural or Artificial Opening Endoscopic, Diagnostic (ICD-10-PCS; principal; 2022-06-17 13:30)
DX: I50.31 Acute diastolic (congestive) heart failure (principal); A41.9 Sepsis, unspecified organism; J18.9 Pneumonia, unspecified organism; J96.01 Acute respiratory failure with hypoxia; R65.21 Severe sepsis with septic shock; J96.02 Acute respiratory failure with hypercapnia; J44.0 Chronic obstructive pulmonary disease with (acute) lower respiratory infection; G40.909 Epilepsy, unspecified, not intractable, without status epilepticus; E78.5 Hyperlipidemia, unspecified; F41.9 Anxiety disorder, unspecified; F17.210 Nicotine dependence, cigarettes, uncomplicated; F39 Unspecified mood [affective] disorder; B34.0 Adenovirus infection, unspecified; I11.0 Hypertensive heart disease with heart failure; E66.09 Other obesity due to excess calories; Z68.29 Body mass index [BMI] 29.0-29.9, adult
CPT/HCPCS: 31628; 31624; 36415; 71045; 71275; 76000; 80048; 80053; 80061; 80202; 82652; 82803; 83605; 83880; 84484; 85025; 85378; 85651; 86738; 87040; 87070; 87077; 87081; 87086; 87102; 87116; 87186; 87205; 87206; 87581; 87632; 87798; 87899; 88305; 89051; 93005; 93306; 94640; 94660; 94760; 94761; 97162; 97165; 97530; 99285; C9803; J0456; J1956; J2405; J2710; Q9967; U0003; U0005

== ENCOUNTER → 2022-06-30 13:52 | Outpatient (CLI) | payer MEDICAID, SELFPAY ==
--- NOTE | 2022-06-30 13:57 | XR_ITS ---
FINAL REPORT CLINICAL HISTORY: Pneumonia COMPARISON: 06/18/2022 FINDINGS: TWO-VIEW CHEST There is mild cardiomegaly. The mediastinum is normal. There is airspace infiltrate at the right base with moderate right effusion. Findings are similar to previous. There is no pneumothorax. IMPRESSION: Airspace infiltrate as above, probably due to pneumonia. Reviewed, Interpreted and Dictated by Jc Jackson MD Transcribed by Gracia Dhillon Authenticated and [facility]
== END ==
PROVIDERS: PCP Nurse Practitioner Family; Visit Provider Internal Medicine Pulmonary Disease
DX: J18.9 Pneumonia, unspecified organism (principal); J90 Pleural effusion, not elsewhere classified
CPT/HCPCS: 71046

== ENCOUNTER 2022-08-02 13:54 | Emergency (ER) | payer MEDICAID, SELFPAY ==
--- NOTE | 2022-08-02 14:10 | XR_ITS ---
PROCEDURE INFORMATION: Exam: XR Chest Exam date and time: 08/02/2022 2:29 PM Age: 51 years old Clinical indication: Cough and shortness of breath; Additional info: Cough and SOB TECHNIQUE: Imaging protocol: Radiologic exam of the chest. Views: 2 views. COMPARISON: CR XR CHEST 2V 06/30/2022 2:06 PM FINDINGS: Lungs: Calcified granuloma left mid lung. Resolving right lower lobe infiltrate. Pleural spaces: Persistent yet diminished right pleural effusion. Heart/Mediastinum: Unremarkable. No cardiomegaly. Bones/joints: Unremarkable. IMPRESSION: Persistent yet resolving right pleural effusion and right lower lobe pneumonia.
[2022-08-02 14:45] VITALS: BP 124/86; PULSE 76; RESP 22; TEMP 36.7; O2SAT 96; BMI 29.2
--- NOTE | 2022-08-02 15:01 | EXP.UTC ---
Discharge Plan Disposition Patient Disposition: Home, Self-Care Condition: Good Prescriptions Prescriptions: New levofloxacin 750 mg tablet 750 mg PO DAILY 7 Days Qty: 7 0RF prednisone 5 mg tablets,dose pack See Rx Instructions .ROUTE .COMPLEX Qty: 21 0RF Rx Instructions: take as directed on package instructions guaifenesin [Mucinex] 600 mg tablet extended release 12hr 1,200 mg PO BID PRN (Reason: cough) Qty: 40 0RF No Action trazodone 100 mg tablet 150 mg PO HS Qty: 45 2RF dicyclomine 10 mg capsule 10 mg PO BID Qty: 60 2RF Rx Instructions: TAKE 1 CAPSULE BY MOUTH TWICE DAILY acetaminophen 500 mg tablet 1,000 mg PO DAILY Qty: 30 1RF Rx Instructions: TAKE 1 CAPLET BY MOUTH EVERY 6 HOURS FOR MILD TO MODERATE PAIN gabapentin 100 mg capsule 100 mg PO BID Qty: 60 0RF loperamide 2 mg capsule See Rx Instructions .ROUTE .COMPLEX Qty: 30 0RF Dose Instruction: TAKE 1 CAPSULE BY MOUTH EVERY 6 HOURS NEEDED FOR DIARRHEA Rx Instructions: TAKE 1 CAPSULE BY MOUTH EVERY 6 HOURS NEEDED FOR DIARRHEA albuterol sulfate 2.5 mg /3 mL (0.083 %) solution for nebulization 2.5 mg inhalation TID PRN (Reason: COPD) Rx Instructions: 2.5 mg inhaled; divalproex 500 mg tablet,delayed release (DR/EC) 500 mg PO TID Nuedexta 20-10 mg capsule 1 cap PO Q12H Rx Instructions: TAKE 1 CAPSULE BY MOUTH EVERY 12 HOURS FOR MOOD albuterol sulfate 90 mcg/actuation Hfa Aerosol Inhaler 1 inh INHALATION QID PRN (Reason: COPD) bupropion HCl 300 mg tablet extended release 24 hr 300 mg PO DAILY furosemide 40 mg Tablet 40 mg PO DAILY 30 Days Qty: 30 0RF levofloxacin 750 mg tablet 750 mg PO DAILY 4 Days Qty: 4 0RF Referrals Follow up/Referrals: Vidya Carlin APRN [Primary Care Provider] - See instructions Activity Restrictions/Add. Instructions Additional Instructions/Restrictions: Start antibiotic today. Be sure to complete entire prescription even if feeling better Monitor temp. Tylenol every 4 hours as needed and / or ibuprofen every 6 hours as needed ( As long as your primary care physician has told you that it ok to take both. For fever/aches/pains ER if no less than 101 despite Tylenol or Motrin Humidifier/vaporizer or hot steamy shower inhaler every 4-6 hours as needed like we discussed. If unsure how to use it, ask pharmacist to demonstrate how. Should help open airways and improve cough, wheezing, and shortness of breath Mucinex for your cough . Be sure to drink lots of water. *Start steroid today. Helps with inflammation therefore, cough and wheezing. Follow directions on the package. Reviewed side effects. Patient reports taking them before. Follow up IMMEDIATELY for new or worsening of symptoms OR no noticeable improvement over the next 48-72 hours. 911 immediately for any life threatening symptoms such as chest pain or difficulty breathing Clinical Impressions Clinical Impression: Pneumonia Qualifiers: Pneumonia type: due to unspecified organism Laterality: right Lung location: lower lobe of lung Qualified Code(s): J18.9 - Pneumonia, unspecified organism Instructions Patient Instructions: Pneumonia-Adult Discharge ED Provider: Ileana Marques [facility] General Stated complaint: SOA, Cough, congestion, rib pain Mode of Arrival: Ambulatory Source of Information: Patient Limitations: No Limitations Time Seen by Provider: 08/02/22 15:05 Description of Symptoms (Recalled from Triage Doc. by RN): PATIENT C/O COUGH, CONGESTION, SOA, DECREASED APPETITE, AND LOWER LUNG PAIN X 3 DAYS HEENT Symptoms (Recalled from RN notes): No Resp Symptoms (Recalled from RN notes): Yes Skin Symptoms (Recalled from RN notes): No MS Symptoms (Recalled from RN notes): No Functional Status (Recalled from RN notes): WNL History of Present Illness Provider Complaint: Patient states that s
[2022-08-02 16:07] VITALS: BP 124/86; PULSE 76; RESP 22; TEMP 36.7; O2SAT 96
== END 2022-08-02 16:10 | disposition home or self-care (01) ==
PROVIDERS: Emergency Provider Nurse Practitioner; PCP Nurse Practitioner Family
DX: J18.9 Pneumonia, unspecified organism (principal)
CPT/HCPCS: 71046; 99212; G0463

== ENCOUNTER 2022-08-21 18:16 | Emergency (ER) | payer MEDICAID, SELFPAY ==
[2022-08-21] VITALS (8 sets, daily range): BP systolic 122–157; BP diastolic 72–99; PULSE 74–87; RESP 16–21; TEMP 37.1; O2SAT 91–99; BMI 28.8
--- NOTE | 2022-08-21 18:49 | XR_ITS ---
PROCEDURE INFORMATION: Exam: XR Chest Exam date and time: 08/21/2022 6:48 PM Age: 51 years old Clinical indication: Cough; Additional info: Congestion TECHNIQUE: Imaging protocol: Radiologic exam of the chest. Views: 2 views. COMPARISON: CR XR CHEST 2V 08/02/2022 2:29 PM FINDINGS: Lungs: Right basilar infiltration. Incidental left pulmonary calcified granulomas. Pleural spaces: [id number] right pleural effusion. Heart/Mediastinum: Unremarkable. No cardiomegaly. Bones/joints: Unremarkable. IMPRESSION: Right pleural effusion and basilar infiltration.
--- NOTE | 2022-08-21 19:19 | EXP.UTC ---
Discharge Plan Disposition Patient Disposition: Still a Patient Prescriptions Prescriptions: No Action trazodone 100 mg tablet 150 mg PO HS Qty: 45 2RF acetaminophen 500 mg tablet 1,000 mg PO DAILY Qty: 30 1RF Rx Instructions: TAKE 1 CAPLET BY MOUTH EVERY 6 HOURS FOR MILD TO MODERATE PAIN gabapentin 100 mg capsule 100 mg PO BID Qty: 60 0RF loperamide 2 mg capsule See Rx Instructions .ROUTE .COMPLEX Qty: 30 0RF Dose Instruction: TAKE 1 CAPSULE BY MOUTH EVERY 6 HOURS NEEDED FOR DIARRHEA Rx Instructions: TAKE 1 CAPSULE BY MOUTH EVERY 6 HOURS NEEDED FOR DIARRHEA dicyclomine 10 mg capsule See Rx Instructions .ROUTE .COMPLEX Qty: 60 0RF Dose Instruction: TAKE 1 CAPSULE(10 MG) BY MOUTH TWICE DAILY FOR IRRITABLE BOWEL SYNDROME Rx Instructions: TAKE 1 CAPSULE(10 MG) BY MOUTH TWICE DAILY FOR IRRITABLE BOWEL SYNDROME bupropion HCl 300 mg tablet extended release 24 hr See Rx Instructions .ROUTE .COMPLEX Qty: 30 0RF Dose Instruction: TAKE 1 TABLET(300 MG) BY MOUTH EVERY DAY IN THE MORNING FOR MOOD Rx Instructions: TAKE 1 TABLET(300 MG) BY MOUTH EVERY DAY IN THE MORNING FOR MOOD Nuedexta 20-10 mg capsule See Rx Instructions .ROUTE .COMPLEX Qty: 60 0RF Dose Instruction: TAKE 1 CAPSULE BY MOUTH EVERY 12 HOURS FOR MOOD Rx Instructions: TAKE 1 CAPSULE BY MOUTH EVERY 12 HOURS FOR MOOD divalproex 500 mg tablet,delayed release (DR/EC) See Rx Instructions .ROUTE .COMPLEX Qty: 90 2RF Dose Instruction: TAKE 1 TABLET BY MOUTH THREE TIMES DAILY FOR SEIZURES Rx Instructions: TAKE 1 TABLET BY MOUTH THREE TIMES DAILY FOR SEIZURES levofloxacin 750 mg tablet 750 mg PO DAILY 7 Days Qty: 7 0RF prednisone 5 mg tablets,dose pack See Rx Instructions .ROUTE .COMPLEX Qty: 21 0RF Rx Instructions: take as directed on package instructions guaifenesin [Mucinex] 600 mg tablet extended release 12hr 1,200 mg PO BID PRN (Reason: cough) Qty: 40 0RF albuterol sulfate 2.5 mg /3 mL (0.083 %) solution for nebulization 2.5 mg inhalation TID PRN (Reason: COPD) Rx Instructions: 2.5 mg inhaled; albuterol sulfate 90 mcg/actuation Hfa Aerosol Inhaler 1 inh INHALATION QID PRN (Reason: COPD) furosemide 40 mg Tablet 40 mg PO DAILY 30 Days Qty: 30 0RF levofloxacin 750 mg tablet 750 mg PO DAILY 4 Days Qty: 4 0RF Referrals Follow up/Referrals: Vidya Carlin APRN [Primary Care Provider] - See instructions Clinical Impressions Clinical Impression: Pneumonia Discharge ED Provider: Tesfaye ([facility])Vidya [facility] [place] HPI General Stated complaint: cough, SOA, Mode of Arrival: Ambulatory Source of Information: Patient and Relative Limitations: No Limitations Time Seen by Provider: 08/21/22 19:21 HEENT Symptoms (Recalled from RN notes): Yes Resp Symptoms (Recalled from RN notes): Yes History of Present Illness Provider Complaint: 51 yr old female presents for soa, coughing and low o2 sat. Related Data Home Medications Medication Instructions Recorded Confirmed albuterol sulfate 2.5 mg/3 mL 2.5 mg inhalation TID PRN COPD 06/16/22 06/30/22 (0.083 %) solution for nebulization albuterol sulfate 90 mcg/actuation 1 inh inhalation QID PRN COPD 06/16/22 06/30/22 aerosol inhaler Previous Rx's Medication Instructions Recorded acetaminophen 500 mg tablet 1,000 mg PO DAILY pain, fever #30 05/14/22 tabs trazodone 100 mg tablet 150 mg PO HS SLEEP #45 tabs 05/14/22 furosemide 40 mg tablet 40 mg PO DAILY 30 days #30 tabs 06/19/22 levofloxacin 750 mg tablet 750 mg PO DAILY 4 days #4 tabs 06/19/22 gabapentin 100 mg capsule 100 mg PO BID nerve #60 caps 06/21/22 loperamide 2 mg capsule See Rx Instructions .Route 07/21/22 .COMPLEX #30 caps guaifenesin 600 mg tablet, 1,200 mg PO BID PRN cough #40 tabs 08/02/22 extended release 12 hr (Mucinex) levofloxacin 750 mg tablet 750 mg PO DAILY 7 days #7 tabs
--- NOTE | 2022-08-21 19:29 | PC.NURSE ---
Pt arrived to ED room 7 from [facility] via wheelchair
[2022-08-21 19:46] LABS: Coronavirus 19, PCR Not Detected (NotDetected); Influenza A, PCR Not Detected (NotDetected); Influenza B, PCR Not Detected (NotDetected)
[2022-08-21 19:57] LABS: Basophils # 0.1 K/mm3 (0-0.2); Basophils % 0.8 % (0.1-2.0); Eosinophils # 0.1 K/mm3 (0.0-0.4); Eosinophils % 0.8 % (0.1-12.0); Hematocrit 37.1 % (37.0-47.0); Hemoglobin 12.4 g/dL (12.2-16.2); Lymphocytes # 3.5 K/mm3 (0.7-4.5); Lymphocytes % 35.4 % (10-50); Mean Corpuscular HGB Conc 33.5 g/dL (31.8-35.4); Mean Corpuscular Hemoglobin 29.7 pg (27.0-31.2); Mean Corpuscular Volume 88.7 fl (81-99); Mean Platelet Volume 7.9 fl (7.4-10.4); Monocytes # 0.8 K/mm3 (0.1-1.0); Neutrophils # 5.4 K/mm3 (1.8-7.8); Neutrophils % 54.9 % (37.0-80.0); Platelet Count 333 K/mm3 (142-424); Red Blood Count 4.18 M/mm3 (4.20-5.40); Red Cell Distribution Width 13.9 % (11.5-17.5); White Blood Count 9.8 K/mm3 (4.8-10.8)
--- NOTE | 2022-08-21 20:01 | PC.NURSE ---
Pt provided with drink
[2022-08-21 20:07] LABS: Alanine Aminotransferase 10 U/L (12-78); Albumin Level 3.4 g/dl (3.5-5.0); Albumin/Globulin Ratio 0.8 (1.1-1.8); Alkaline Phosphatase 149 U/L (38-126); Anion Gap 10.2 mEq/L (5-15); Aspartate Amino Transferase 21 U/L (14-36); Bilirubin,Total 0.3 mg/dl (0.2-1.3); Blood Urea Nitrogen 21 mg/dl (7-17); Calcium 8.7 mg/dl (8.4-10.2); Carbon Dioxide 36 mmol/L (22.0-30.0); Chloride 93 mmol/L (98-107); Creatinine Clearance Estimated 114 mL/min (50-200); Estimated Glomerular Filt Rate 88 ml/min (>60); GFR (African American) 107 ML/MIN (>60); Globulin 4.3 g/dL (1.3-3.2); Glucose 76 mg/dl (74-100); Potassium 4.2 mmoL/L (3.5-5.1); Sodium 135 mmol/L (136-145); Total Protein,Serum 7.7 g/dl (6.3-8.2)
[2022-08-21 20:16] LABS: NT Pro Brain Natriuretic Pep. 1290 pg/mL (0-125)
[2022-08-21 20:31] LABS: Erythrocyte Sedimentation Rate 69 mm/hr (0-30); Lactic Acid 1.1 mmol/L (0.7-2.1)
--- NOTE | 2022-08-21 21:24 | HMH.EDSOB ---
Discharge Plan Disposition Patient Disposition: Home, Self-Care Prescriptions Prescriptions: New prednisone [prednisone] 20 mg tablet 20 mg PO BID Qty: 10 0RF levofloxacin 500 mg tablet 500 mg PO DAILY Qty: 7 0RF clindamycin HCl 300 mg capsule 300 mg PO TID Qty: 30 0RF benzonatate 100 mg capsule 100 mg PO TID PRN (Reason: cough) Qty: 30 0RF No Action trazodone 100 mg tablet 150 mg PO HS Qty: 45 2RF acetaminophen 500 mg tablet 1,000 mg PO DAILY Qty: 30 1RF Rx Instructions: TAKE 1 CAPLET BY MOUTH EVERY 6 HOURS FOR MILD TO MODERATE PAIN gabapentin 100 mg capsule 100 mg PO BID Qty: 60 0RF loperamide 2 mg capsule See Rx Instructions .ROUTE .COMPLEX Qty: 30 0RF Dose Instruction: TAKE 1 CAPSULE BY MOUTH EVERY 6 HOURS NEEDED FOR DIARRHEA Rx Instructions: TAKE 1 CAPSULE BY MOUTH EVERY 6 HOURS NEEDED FOR DIARRHEA dicyclomine 10 mg capsule See Rx Instructions .ROUTE .COMPLEX Qty: 60 0RF Dose Instruction: TAKE 1 CAPSULE(10 MG) BY MOUTH TWICE DAILY FOR IRRITABLE BOWEL SYNDROME Rx Instructions: TAKE 1 CAPSULE(10 MG) BY MOUTH TWICE DAILY FOR IRRITABLE BOWEL SYNDROME bupropion HCl 300 mg tablet extended release 24 hr See Rx Instructions .ROUTE .COMPLEX Qty: 30 0RF Dose Instruction: TAKE 1 TABLET(300 MG) BY MOUTH EVERY DAY IN THE MORNING FOR MOOD Rx Instructions: TAKE 1 TABLET(300 MG) BY MOUTH EVERY DAY IN THE MORNING FOR MOOD Nuedexta 20-10 mg capsule See Rx Instructions .ROUTE .COMPLEX Qty: 60 0RF Dose Instruction: TAKE 1 CAPSULE BY MOUTH EVERY 12 HOURS FOR MOOD Rx Instructions: TAKE 1 CAPSULE BY MOUTH EVERY 12 HOURS FOR MOOD divalproex 500 mg tablet,delayed release (DR/EC) See Rx Instructions .ROUTE .COMPLEX Qty: 90 2RF Dose Instruction: TAKE 1 TABLET BY MOUTH THREE TIMES DAILY FOR SEIZURES Rx Instructions: TAKE 1 TABLET BY MOUTH THREE TIMES DAILY FOR SEIZURES levofloxacin 750 mg tablet 750 mg PO DAILY 7 Days Qty: 7 0RF prednisone 5 mg tablets,dose pack See Rx Instructions .ROUTE .COMPLEX Qty: 21 0RF Rx Instructions: take as directed on package instructions guaifenesin [Mucinex] 600 mg tablet extended release 12hr 1,200 mg PO BID PRN (Reason: cough) Qty: 40 0RF albuterol sulfate 2.5 mg /3 mL (0.083 %) solution for nebulization 2.5 mg inhalation TID PRN (Reason: COPD) Rx Instructions: 2.5 mg inhaled; albuterol sulfate 90 mcg/actuation Hfa Aerosol Inhaler 1 inh INHALATION QID PRN (Reason: COPD) furosemide 40 mg Tablet 40 mg PO DAILY 30 Days Qty: 30 0RF levofloxacin 750 mg tablet 750 mg PO DAILY 4 Days Qty: 4 0RF Referrals Follow up/Referrals: Vidya Carlin APRN [Primary Care Provider] - See instructions Clinical Impressions Clinical Impression: Pneumonia, COPD (chronic obstructive pulmonary disease) Instructions Patient Instructions: DI for Chronic Obstructive Pulmonary Disease Discharge ED Provider: Jared Pak Resp/SOB HPI General Chief Complaint: Shortness of Breath/Dyspnea Stated Complaint: cough, SOA, Time Seen by Provider: 08/21/22 19:21 Mode of Arrival: Wheelchair Source of Information: Patient, Relative and Medical Record Limitations: No Limitations Description of Symptoms (Recalled from ER Triage Doc. by RN): per SISTER REPORTS PATIENT WITH COUGH, SOA, AND DECREASED APPETITE. History of Present Illness ongoing cough and sob with dec po intake over the last few days - has hx of similiar issues Complaint: shortness of breath and cough Onset (ago): day(s) Severity: moderate Consistency/Duration: intermittent Known history of: COPD Related Data Home oxygen amount: 2 liters Home Medications Medication Instructions Recorded Confirmed albuterol sulfate 2.5 mg/3 mL 2.5 mg inhalation TID PRN COPD 06/16/22 06/30/22 (0.083 %) solution for nebulization albuterol sulfate 90 mcg/actuation 1 inh inhalati
--- NOTE | 2022-08-21 21:27 | PC.NURSE ---
Pt readjusted in bed for comfort
--- NOTE | 2022-08-21 22:38 | CT_ITS ---
PROCEDURE INFORMATION: Exam: CT Chest Without Contrast; Diagnostic Exam date and time: 08/21/2022 10:49 PM Age: 51 years old Clinical indication: Shortness of breath; Additional info: SOA TECHNIQUE: Imaging protocol: Diagnostic computed tomography of the chest without contrast. Radiation optimization: All CT scans at this facility use at least one of these dose optimization techniques: automated exposure control; mA and/or kV adjustment per patient size (includes targeted exams where dose is matched to clinical indication); or iterative reconstruction. COMPARISON: CT ANGIO CHEST PE PROTOCOL 06/16/2022 3:52 AM FINDINGS: Lungs: There is probable rounded atelectasis in the right lower lobe. No evidence for definite pneumonia. Pleural spaces: Mild right pleural effusion. No left pleural effusion. Heart: Unremarkable. No cardiomegaly. No pericardial effusion. Lymph nodes: Unremarkable. No enlarged lymph nodes. Vasculature: Unremarkable. No aortic aneurysm. Bones/joints: Unremarkable. No acute fracture. Soft tissues: Unremarkable. IMPRESSION: Small right pleural effusion with associated atelectasis less likely pneumonia.
--- NOTE | 2022-08-21 22:47 | PC.NURSE ---
Pt gone to RAD via stretcher
--- NOTE | 2022-08-21 22:52 | PC.NURSE ---
Pt back from RAD
[2022-08-22 00:01] LABS: Troponin I < 0.01 ng/ml (0.00-0.034)
== END 2022-08-22 00:07 | disposition home or self-care (01) ==
LOC: UTC 18:28 → ER 19:21
PROVIDERS: Emergency Provider Emergency Medicine; PCP Nurse Practitioner Family
DX: J18.9 Pneumonia, unspecified organism (principal); J44.9 Chronic obstructive pulmonary disease, unspecified; I50.9 Heart failure, unspecified; F41.9 Anxiety disorder, unspecified; J45.909 Unspecified asthma, uncomplicated; K21.9 Gastro-esophageal reflux disease without esophagitis; Z86.16 Personal history of COVID-19; E78.5 Hyperlipidemia, unspecified; I10 Essential (primary) hypertension; Z90.710 Acquired absence of both cervix and uterus; Z90.49 Acquired absence of other specified parts of digestive tract; F17.210 Nicotine dependence, cigarettes, uncomplicated
CPT/HCPCS: 71046; 71250; 80053; 83605; 83880; 84145; 84484; 85025; 85651; 86140; 87040; 96361; 96374; 96375; 99285; C9803; U0003; U0005

== ENCOUNTER → 2022-12-03 15:20 | Outpatient (CLI) | payer MEDICAID, SELFPAY ==
--- NOTE | 2022-12-03 15:20 | MM_ITS ---
PROCEDURE INFORMATION: Exam: MG Bilateral Screening 3D Mammography Exam date and time: 12/03/2022 3:10 PM Age: 52 years old Clinical indication: Screening examination TECHNIQUE: Imaging protocol: Bilateral Screening tomosynthesis and 2D mammography including computer-aided detection (CAD) when performed. COMPARISON: 1. MG MM CLIP PLACEMENT LT 03/31/2021 1:24 PM 2. MG MM CLIP PLACEMENT RT 03/31/2021 1:18 PM FINDINGS: MAMMOGRAPHY: Breast composition: There are scattered areas of fibroglandular density. Mass: No new or suspicious masses Architectural distortion: None. Calcifications: No suspicious calcifications. Asymmetric density: None. Skin thickening: None. Axillary adenopathy: None. IMPRESSION: No mammographic evidence of malignancy. Annual screening is recommended unless otherwise clinically indicated. ASSESSMENT: BI-RADS Category 1: Negative
== END ==
PROVIDERS: PCP Emergency Medicine; Visit Provider Emergency Medicine
DX: Z12.31 Encounter for screening mammogram for malignant neoplasm of breast (principal)
CPT/HCPCS: 77063; 77067

== ENCOUNTER → 2023-02-04 16:04 | Outpatient (CLI) | payer MEDICAID, SELFPAY ==
[2023-02-04 17:43] LABS: Adenovirus,PCR Not Detected (NotDetected); Bordetella Pertussis Not Detected (NotDetected); Chlamydophila Pneumoniae, PCR Not Detected (NotDetected); Coronavirus 19, PCR Not Detected (NotDetected); Coronavirus 229E Not Detected (NotDetected); Coronavirus NL63 Not Detected (NotDetected); Coronavirus OC43 Not Detected (NotDetected); Coronovirus HKU1,PCR Not Detected (NotDetected); Human Metapneumovirus Not Detected (NotDetected); Influenza A, PCR Not Detected (NotDetected); Influenza AH1, 2009 Not Detected (NotDetected); Influenza AH1, PCR Not Detected (NotDetected); Influenza AH3,PCR Not Detected (NotDetected); Influenza B, PCR Not Detected (NotDetected); Mycoplasma Pneumoniae, PCR Not Detected (NotDetected); Parainfluenza 1, PCR Not Detected (NotDetected); Parainfluenza 2, PCR Not Detected (NotDetected); Parainfluenza 3, PCR Not Detected (NotDetected); Parainfluenza 4, PCR Not Detected (NotDetected); Respiratory Syncytial Virus Not Detected (NotDetected); Rhinovirus/Enterovirus Not Detected (NotDetected)
== END ==
PROVIDERS: PCP Student in an Organized Health Care Education/Training Program; Visit Provider Student in an Organized Health Care Education/Training Program
DX: R06.09 Other forms of dyspnea (principal); R05.9 Cough, unspecified; R06.2 Wheezing; R09.89 Other specified symptoms and signs involving the circulatory and respiratory systems; J02.9 Acute pharyngitis, unspecified
CPT/HCPCS: 87581; 87632; 87798

== ENCOUNTER → 2023-03-07 23:25 | Outpatient (CLI) | payer MEDICAID, SELFPAY | PROVIDERS: PCP Emergency Medicine; Visit Provider Emergency Medicine | DX: R31.9 Hematuria, unspecified (principal) | CPT/HCPCS: 87086 ==

== ENCOUNTER 2023-03-11 20:42 | Emergency (ER) | payer MEDICAID, SELFPAY ==
[2023-03-11 20:49] VITALS: BP 176/97; PULSE 91; O2SAT 96
[2023-03-11 20:54] VITALS: BP 176/97; PULSE 91; RESP 20; TEMP 36.9; O2SAT 92; BMI 29.7
--- NOTE | 2023-03-11 20:58 | HMH.EDGENADL ---
Discharge Plan Disposition Patient Disposition: Home, Self-Care Condition: Good Prescriptions Prescriptions: No Action acetaminophen 500 mg tablet 1,000 mg PO DAILY Qty: 30 1RF Rx Instructions: TAKE 1 CAPLET BY MOUTH EVERY 6 HOURS FOR MILD TO MODERATE PAIN loperamide 2 mg capsule See Rx Instructions .ROUTE .COMPLEX Qty: 30 0RF Dose Instruction: TAKE 1 CAPSULE BY MOUTH EVERY 6 HOURS NEEDED FOR DIARRHEA Rx Instructions: TAKE 1 CAPSULE BY MOUTH EVERY 6 HOURS NEEDED FOR DIARRHEA trazodone 50 mg tablet 50 mg PO HS Qty: 30 2RF cephalexin 500 mg capsule 500 mg PO TID Qty: 21 0RF clonazepam [Klonopin] 0.5 mg tablet 0.5 mg PO BID Qty: 60 0RF nicotine 21 mg/24 hr patch 24 hour 1 patch transdermal DAILY Qty: 28 1RF gabapentin 300 mg capsule 300 mg PO TID Qty: 90 2RF Nuedexta 20-10 mg capsule See Rx Instructions .ROUTE .COMPLEX Qty: 60 0RF Dose Instruction: TAKE 1 CAPSULE BY MOUTH EVERY 12 HOURS FOR MOOD Rx Instructions: TAKE 1 CAPSULE BY MOUTH EVERY 12 HOURS FOR MOOD divalproex 500 mg tablet,delayed release (DR/EC) See Rx Instructions .ROUTE .COMPLEX Qty: 90 0RF Dose Instruction: TAKE 1 TABLET BY MOUTH THREE TIMES DAILY FOR SEIZURES Rx Instructions: TAKE 1 TABLET BY MOUTH THREE TIMES DAILY FOR SEIZURES clonidine HCl 0.1 mg tablet 0.1 mg PO BID Qty: 180 3RF dicyclomine 10 mg capsule See Rx Instructions .ROUTE .COMPLEX Qty: 60 2RF Dose Instruction: TAKE 1 CAPSULE(10 MG) BY MOUTH TWICE DAILY FOR IRRITABLE BOWEL SYNDROME Rx Instructions: TAKE 1 CAPSULE(10 MG) BY MOUTH TWICE DAILY FOR IRRITABLE BOWEL SYNDROME bupropion HCl 300 mg tablet extended release 24 hr See Rx Instructions .ROUTE .COMPLEX Qty: 30 2RF Dose Instruction: TAKE 1 TABLET(300 MG) BY MOUTH EVERY DAY IN THE MORNING FOR MOOD Rx Instructions: TAKE 1 TABLET(300 MG) BY MOUTH EVERY DAY IN THE MORNING FOR MOOD albuterol sulfate [ProAir HFA] 90 mcg/actuation HFA aerosol inhaler See Rx Instructions .ROUTE .COMPLEX Qty: 8.5 2RF Dose Instruction: INHALE 1 PUFF BY MOUTH EVERY 4 TO 6 HOURS NEEDED FOR SHORTNESS OF BREATH Rx Instructions: INHALE 1 PUFF BY MOUTH EVERY 4 TO 6 HOURS NEEDED FOR SHORTNESS OF BREATH albuterol sulfate 2.5 mg /3 mL (0.083 %) solution for nebulization 2.5 mg inhalation TID PRN (Reason: COPD) Rx Instructions: 2.5 mg inhaled; Referrals Follow up/Referrals: Jared Pak MD [Primary Care Provider] - See instructions Clinical Impressions Clinical Impression: Acute chest wall pain Discharge ED Provider: Otoniel Queen Adult HPI General Chief complaint: Fall Stated complaint: fall @7:00, left side pain around breast Time Seen by Provider: 03/11/23 20:57 Mode of Arrival: Ambulatory Source of Information: Patient and Relative Limitations: No Limitations Description of Symptoms (Recalled from ER Triage Doc. by RN): pt reports falling right after getting out of bed this AM. pt reports falling on her L side, she did not land on anything. pt c/o L rib pain. pt denies LOC. pt denies any other pain of symptoms. History of Present Illness HPI narrative: Patient is a 52-year-old female with multiple chronic comorbidities presenting with friend/family member at bedside who experienced nonsyncopal fall onto left side while getting out of bed earlier today, describes acute pain of left chest wall, no numbness or tingling, no head injury, no appreciable bruising, no previous therapies. No pain elsewhere. No shortness of breath or chest pain. Pain is sharp and nonradiating. No neck pain or back pain. Denies any preceding symptoms or preceding change in baseline state of health. No fevers or chills or confusion or nausea or vomiting. Related Data Home Medications Medication Instructions Recorded Confirmed albuterol sulfate 2.5 mg/3 mL 2.5 mg inhalation TID PRN COPD 06/16/22
--- NOTE | 2023-03-11 21:32 | XR_ITS ---
PROCEDURE INFORMATION: Exam: XR Chest Exam date and time: 03/11/2023 9:31 PM Age: 52 years old Clinical indication: Injury or trauma; Fall; Additional info: Left sided chest pain after fall TECHNIQUE: Imaging protocol: Radiologic exam of the chest. Views: 2 views. COMPARISON: CT CHEST WO CON 08/21/2022 10:49 PM FINDINGS: Lungs: Stable calcified granuloma in the left mid lung. Pleural spaces: There is a small right pleural effusion. Heart/Mediastinum: See Bones/joints finding. Bones/joints: Degenerative disease thoracic spine. Line stable cardiac and mediastinal contours. IMPRESSION: Small right pleural effusion.
--- NOTE | 2023-03-11 21:39 | PC.NURSE ---
pt to xray
--- NOTE | 2023-03-11 21:45 | PC.NURSE ---
pt arrived back to room
--- NOTE | 2023-03-11 21:56 | PC.NURSE ---
pt is sitting up in wheelchair stated she was in pain relayed to nurses about pt pain, visitor at bs
[2023-03-11 22:00] VITALS: BP 163/89; PULSE 80; O2SAT 95
[2023-03-11 22:43] VITALS: BP 155/79; PULSE 84; RESP 16; TEMP 36.6; O2SAT 94
[2023-03-11 22:45] VITALS: BP 155/79; PULSE 84; O2SAT 95
== END 2023-03-11 23:03 | disposition home or self-care (01) ==
PROVIDERS: Emergency Provider Emergency Medicine; PCP Emergency Medicine
DX: R07.89 Other chest pain (principal); R07.2 Precordial pain; I11.0 Hypertensive heart disease with heart failure; I50.31 Acute diastolic (congestive) heart failure; F41.9 Anxiety disorder, unspecified; J44.9 Chronic obstructive pulmonary disease, unspecified; F32.9 Major depressive disorder, single episode, unspecified; E78.5 Hyperlipidemia, unspecified; I27.20 Pulmonary hypertension, unspecified; G40.909 Epilepsy, unspecified, not intractable, without status epilepticus; F17.210 Nicotine dependence, cigarettes, uncomplicated; W06.XXXA Fall from bed, initial encounter
CPT/HCPCS: 71046; 99283

== ENCOUNTER 2023-03-18 16:40 | Emergency (ER) | payer MEDICAID, SELFPAY ==
[2023-03-18 16:42] VITALS: BP 145/68; PULSE 81; RESP 18; TEMP 37.2; O2SAT 97; BMI 29.7
--- NOTE | 2023-03-18 16:57 | ECG_ITS ---
APPROVED REPORT Exam: Resting ECG HR:80 bpm ECG Measurements Heart Rate 80 AXES NV 146 P 50 QRSd 110 QRS 91 QT 373 T 50 QTc 408 Conclusion SINUS RHYTHM BORDERLINE RIGHT AXIS DEVIATION [QRS AXIS > 90] BORDERLINE ECG UNCONFIRMED REPORT Electronically signed by : Praful Kaufman MD 03/19/2023 21:01:33
--- NOTE | 2023-03-18 17:25 | PC.NURSE ---
DR DICKEY AT BEDSIDE
[2023-03-18 17:30] VITALS: BP 112/72; PULSE 82; RESP 18; O2SAT 99
--- NOTE | 2023-03-18 17:33 | HMH.EDGENADL ---
Discharge Plan Disposition Patient Disposition: Home, Self-Care Condition: Fair Prescriptions Prescriptions: New azithromycin 500 mg tablet 500 mg PO DAILY 7 Days Qty: 7 0RF prednisone 50 mg tablet 50 mg PO DAILY 5 Days Qty: 5 0RF No Action acetaminophen 500 mg tablet 1,000 mg PO DAILY Qty: 30 1RF Rx Instructions: TAKE 1 CAPLET BY MOUTH EVERY 6 HOURS FOR MILD TO MODERATE PAIN loperamide 2 mg capsule See Rx Instructions .ROUTE .COMPLEX Qty: 30 0RF Dose Instruction: TAKE 1 CAPSULE BY MOUTH EVERY 6 HOURS NEEDED FOR DIARRHEA Rx Instructions: TAKE 1 CAPSULE BY MOUTH EVERY 6 HOURS NEEDED FOR DIARRHEA trazodone 50 mg tablet 50 mg PO HS Qty: 30 2RF cephalexin 500 mg capsule 500 mg PO TID Qty: 21 0RF clonazepam [Klonopin] 0.5 mg tablet 0.5 mg PO BID Qty: 60 0RF nicotine 21 mg/24 hr patch 24 hour 1 patch transdermal DAILY Qty: 28 1RF gabapentin 300 mg capsule 300 mg PO TID Qty: 90 2RF Nuedexta 20-10 mg capsule See Rx Instructions .ROUTE .COMPLEX Qty: 60 0RF Dose Instruction: TAKE 1 CAPSULE BY MOUTH EVERY 12 HOURS FOR MOOD Rx Instructions: TAKE 1 CAPSULE BY MOUTH EVERY 12 HOURS FOR MOOD clonidine HCl 0.1 mg tablet 0.1 mg PO BID Qty: 180 3RF albuterol sulfate [ProAir HFA] 90 mcg/actuation HFA aerosol inhaler See Rx Instructions .ROUTE .COMPLEX Qty: 8.5 2RF Dose Instruction: INHALE 1 PUFF BY MOUTH EVERY 4 TO 6 HOURS NEEDED FOR SHORTNESS OF BREATH Rx Instructions: INHALE 1 PUFF BY MOUTH EVERY 4 TO 6 HOURS NEEDED FOR SHORTNESS OF BREATH dicyclomine 10 mg capsule See Rx Instructions .ROUTE .COMPLEX Qty: 60 0RF Dose Instruction: TAKE 1 CAPSULE(10 MG) BY MOUTH TWICE DAILY FOR IRRITABLE BOWEL SYNDROME Rx Instructions: TAKE 1 CAPSULE(10 MG) BY MOUTH TWICE DAILY FOR IRRITABLE BOWEL SYNDROME bupropion HCl 300 mg tablet extended release 24 hr See Rx Instructions .ROUTE .COMPLEX Qty: 30 0RF Dose Instruction: TAKE 1 TABLET(300 MG) BY MOUTH EVERY DAY IN THE MORNING FOR MOOD Rx Instructions: TAKE 1 TABLET(300 MG) BY MOUTH EVERY DAY IN THE MORNING FOR MOOD divalproex 500 mg tablet,delayed release (DR/EC) See Rx Instructions .ROUTE .COMPLEX Qty: 90 0RF Dose Instruction: TAKE 1 TABLET BY MOUTH THREE TIMES DAILY FOR SEIZURES Rx Instructions: TAKE 1 TABLET BY MOUTH THREE TIMES DAILY FOR SEIZURES albuterol sulfate 2.5 mg /3 mL (0.083 %) solution for nebulization 2.5 mg inhalation TID PRN (Reason: COPD) Rx Instructions: 2.5 mg inhaled; Referrals Follow up/Referrals: Jared Pak MD [Primary Care Provider] - See instructions Clinical Impressions Clinical Impression: Asthma exacerbation in COPD Discharge ED Provider: Barak Rosas General Adult HPI General Chief complaint: Shortness of Breath/Dyspnea Stated complaint: Difficulty breathing Time Seen by Provider: 03/18/23 17:19 Mode of Arrival: Wheelchair Source of Information: Relative Limitations: No Limitations Description of Symptoms (Recalled from ER Triage Doc. by RN): PT BROUGHT IN BY SISTER, PT REPORTS INCREASED SHORTNESS OF BREATH. SISTER REPORTS PT HAS HAD 3-4 DAYS OVER THE COURSE OF A WEEK. RECENTLY FINISHED ABX FOR UTI. PT WEARS HOME O2 FOR COPD History of Present Illness HPI narrative: Patient is a 52-year-old female with past medical history of multi pack-year smoking, COPD on nocturnal O2 and intermittent daytime O2, recent urinary tract infection, frequent falls who presents emergency department for evaluation of shortness of breath and cough. History is obtained by sister and patient at bedside. Over the last 3 days patient has had intermittent worsening cough. No increased oxygen requirement however she does not want to wear her oxygen during the day. With respect to her fall she has had frequent falls before, in the past week she has had 3 falls, either mechanical rolling out o
--- NOTE | 2023-03-18 17:36 | XR_ITS ---
PROCEDURE INFORMATION: Exam: XR Chest Exam date and time: 03/18/2023 5:55 PM Age: 52 years old Clinical indication: Shortness of breath; Additional info: SOB TECHNIQUE: Imaging protocol: Radiologic exam of the chest. Views: 1 view. COMPARISON: CR XR CHEST 2V 03/11/2023 9:31 PM FINDINGS: Lungs: There is stable right lower lobe consolidative atelectasis. Small calcified granuloma persists in the left mid lung. Left lung is otherwise clear. Pleural spaces: Moderate right pleural effusion persists. Heart/Mediastinum: Unremarkable. No cardiomegaly. Bones/joints: Moderate degenerative changes of the spine and shoulders. Stable chronic appearing deformity of the bilateral proximal humeri compatible with old, healed fractures. IMPRESSION: Persistent right pleural effusion and right lower lobe consolidative atelectasis. No significant change from the study of 1 week previous.
--- NOTE | 2023-03-18 17:49 | PC.NURSE ---
lab coming for 2nd set of cultures
[2023-03-18 17:55] LABS: Basophils % 0.3 % (0.1-2.0); Eosinophils # 0.1 K/mm3 (0.0-0.4); Eosinophils % 0.8 % (0.1-12.0); Hematocrit 35.6 % (37.0-47.0); Hemoglobin 10.9 g/dL (12.2-16.2); Lymphocytes % 26.1 % (10-50); Mean Corpuscular HGB Conc 30.7 g/dL (31.8-35.4); Mean Corpuscular Hemoglobin 24.6 pg (27.0-31.2); Mean Corpuscular Volume 80.1 fl (81-99); Mean Platelet Volume 7.6 fl (7.4-10.4); Monocytes # 0.8 K/mm3 (0.1-1.0); Monocytes % 9.7 % (1.7-9.3); Neutrophils # 4.9 K/mm3 (1.8-7.8); Neutrophils % 63.1 % (37.0-80.0); Platelet Count 369 K/mm3 (142-424); Red Blood Count 4.44 M/mm3 (4.20-5.40); Red Cell Distribution Width 16.1 % (11.5-17.5); White Blood Count 7.7 K/mm3 (4.8-10.8)
--- NOTE | 2023-03-18 18:00 | PC.NURSE ---
XR AT BEDSIDE
[2023-03-18 18:01] LABS: Alanine Aminotransferase 10 U/L (12-78); Albumin Level 3.2 g/dl (3.5-5.0); Albumin/Globulin Ratio 0.7 (1.1-1.8); Alkaline Phosphatase 115 U/L (38-126); Anion Gap 9.2 mEq/L (5-15); Aspartate Amino Transferase 16 U/L (14-36); Bilirubin,Total 0.3 mg/dl (0.2-1.3); Blood Urea Nitrogen 10 mg/dl (7-17); Calcium 8.3 mg/dl (8.4-10.2); Carbon Dioxide 36 mmol/L (22.0-30.0); Chloride 99 mmol/L (98-107); Creatinine Clearance Estimated 198 mL/min (50-200); Estimated Glomerular Filt Rate 168 ml/min (>60); GFR (African American) 203 ML/MIN (>60); Globulin 4.5 g/dL (1.3-3.2); Glucose 70 mg/dl (74-100); Magnesium 1.7 mg/dl (1.6-2.3); Potassium 4.2 mmoL/L (3.5-5.1); Sodium 140 mmol/L (136-145); Total Protein,Serum 7.7 g/dl (6.3-8.2)
--- NOTE | 2023-03-18 18:01 | PC.NURSE ---
LAB AT BEDSIDE TO COLLECT SECOND SET OF BLOOD CULTURES
[2023-03-18 18:11] LABS: VBG HCO3 32.5 mmol/L (23-30); VBG Oxygen Saturation 92.4 % (50-70); VBG PH 7.36 mmol/L (7.31-7.41); VBG PO2 68.3 mmol/L (28-40); VBG Total CO2 34.4 mmol/L (23-27)
--- NOTE | 2023-03-18 18:16 | PC.NURSE ---
[facility] results called to RN, ph 7.36, o2 68.3, CO2 59.6, bicarb 32.5 notified ER MD Rosas of results
[2023-03-18 18:17] LABS: VBG PCO2 59.6 mmol/L (35-51)
[2023-03-18 18:21] LABS: Microscopic, Urine URINE MICROSCOPIC (MICROSCOPIC)
[2023-03-18 18:28] LABS: Appearance,Urine CLEAR (Clear); Blood, Urine Negative (Negative); Color,Urine YELLOW (Yellow); Glucose,Urine (UA) Negative (Negative); Ketones,Urine TRACE (Negative); Leukocyte Esterase,Urine Negative (Negative); Nitrate,Urine Negative (Negative); Protein,Urine Negative (Negative); Urobilinogen,Urine 0.2 EU/dl (0.2)
[2023-03-18 18:29] LABS: Bilirubin,Urine 1+ (Negative)
[2023-03-18 18:48] LABS: Bacteria,Urine Trace /lpf
--- NOTE | 2023-03-18 19:06 | PC.NURSE ---
rounded on pt, tv remote given at this time
[2023-03-18 20:36] VITALS: BP 116/75; PULSE 81; RESP 18; TEMP 37.1; O2SAT 99
--- NOTE | 2023-03-21 14:18 | PC.NURSE ---
voicemail left for pt, left message requesting call back follow up call conducted to pt per Dr. Rosas request.
--- NOTE | 2023-03-21 14:31 | PC.NURSE ---
pt sister called back at this time, reports pt is feeling much better
--- NOTE | 2023-03-21 16:30 | PC.NURSE ---
Dr. Rosas reviewed pts chart, requested that I call pt back and request that pt return to ER for reevaluation r/t positive blood culture result. Spoke with pt sister on the phone again explained to her that Dr. Rosas would like pt to be reevaluated in ER r/t positive blood culture results, she verbalized understanding and states she will bring pt back into ER .
== END 2023-03-18 20:37 | disposition home or self-care (01) ==
PROVIDERS: Emergency Provider Emergency Medicine; PCP Emergency Medicine
DX: J45.901 Unspecified asthma with (acute) exacerbation (principal); J44.9 Chronic obstructive pulmonary disease, unspecified; I11.0 Hypertensive heart disease with heart failure; I50.21 Acute systolic (congestive) heart failure; E78.5 Hyperlipidemia, unspecified; I27.20 Pulmonary hypertension, unspecified; G40.909 Epilepsy, unspecified, not intractable, without status epilepticus; G62.9 Polyneuropathy, unspecified; G43.919 Migraine, unspecified, intractable, without status migrainosus; F41.9 Anxiety disorder, unspecified; F32.A Depression, unspecified; F17.210 Nicotine dependence, cigarettes, uncomplicated; J90 Pleural effusion, not elsewhere classified; Z86.711 Personal history of pulmonary embolism
CPT/HCPCS: 36415; 71045; 80053; 81001; 82803; 83735; 85025; 87040; 87077; 87186; 93005; 96374; 96375; 99285; J0456

== ENCOUNTER 2023-03-21 19:42 | Emergency (ER) | payer MEDICAID, SELFPAY ==
[2023-03-21 19:43] VITALS: BP 148/74; BP 187/103; PULSE 70; PULSE 84; RESP 16; RESP 24; TEMP 36.6; O2SAT 93; O2SAT 98; BMI 29.7
[2023-03-21 22:00] VITALS: BP 149/78; PULSE 75; RESP 20; O2SAT 99
[2023-03-21 22:15] LABS: Basophils % 0.2 % (0.1-2.0); Eosinophils % 0.5 % (0.1-12.0); Hemoglobin 11.4 g/dL (12.2-16.2); Lymphocytes # 2.7 K/mm3 (0.7-4.5); Lymphocytes % 30.6 % (10-50); Mean Corpuscular HGB Conc 30.8 g/dL (31.8-35.4); Mean Corpuscular Hemoglobin 24.4 pg (27.0-31.2); Mean Corpuscular Volume 79.2 fl (81-99); Mean Platelet Volume 7.5 fl (7.4-10.4); Monocytes # 0.6 K/mm3 (0.1-1.0); Monocytes % 6.6 % (1.7-9.3); Neutrophils # 5.6 K/mm3 (1.8-7.8); Neutrophils % 62.3 % (37.0-80.0); Platelet Count 416 K/mm3 (142-424); Red Blood Count 4.66 M/mm3 (4.20-5.40); Red Cell Distribution Width 16.2 % (11.5-17.5)
[2023-03-21 22:17] LABS: Alanine Aminotransferase 13 U/L (12-78); Albumin Level 3.5 g/dl (3.5-5.0); Albumin/Globulin Ratio 0.8 (1.1-1.8); Alkaline Phosphatase 108 U/L (38-126); Anion Gap 13.4 mEq/L (5-15); Aspartate Amino Transferase 19 U/L (14-36); Blood Urea Nitrogen 14 mg/dl (7-17); Calcium 8.7 mg/dl (8.4-10.2); Carbon Dioxide 35 mmol/L (22.0-30.0); Chloride 97 mmol/L (98-107); Creatinine Clearance Estimated 158 mL/min (50-200); Estimated Glomerular Filt Rate 130 ml/min (>60); GFR (African American) 157 ML/MIN (>60); Globulin 4.6 g/dL (1.3-3.2); Glucose 92 mg/dl (74-100); Lactic Acid 1.6 mmol/L (0.7-2.1); Potassium 4.4 mmoL/L (3.5-5.1); Sodium 141 mmol/L (136-145); Total Protein,Serum 8.1 g/dl (6.3-8.2)
[2023-03-21 22:18] LABS: Bilirubin,Total < 0.1 mg/dl (0.2-1.3)
[2023-03-21 22:30] VITALS: BP 150/72; PULSE 70; RESP 18; O2SAT 98
--- NOTE | 2023-03-21 23:29 | HMH.EDGENADL ---
Discharge Plan Disposition Patient Disposition: Home, Self-Care Condition: Good Prescriptions Prescriptions: No Action acetaminophen 500 mg tablet 1,000 mg PO DAILY Qty: 30 1RF Rx Instructions: TAKE 1 CAPLET BY MOUTH EVERY 6 HOURS FOR MILD TO MODERATE PAIN loperamide 2 mg capsule See Rx Instructions .ROUTE .COMPLEX Qty: 30 0RF Dose Instruction: TAKE 1 CAPSULE BY MOUTH EVERY 6 HOURS NEEDED FOR DIARRHEA Rx Instructions: TAKE 1 CAPSULE BY MOUTH EVERY 6 HOURS NEEDED FOR DIARRHEA trazodone 50 mg tablet 50 mg PO HS Qty: 30 2RF cephalexin 500 mg capsule 500 mg PO TID Qty: 21 0RF clonazepam [Klonopin] 0.5 mg tablet 0.5 mg PO BID Qty: 60 0RF nicotine 21 mg/24 hr patch 24 hour 1 patch transdermal DAILY Qty: 28 1RF gabapentin 300 mg capsule 300 mg PO TID Qty: 90 2RF Nuedexta 20-10 mg capsule See Rx Instructions .ROUTE .COMPLEX Qty: 60 0RF Dose Instruction: TAKE 1 CAPSULE BY MOUTH EVERY 12 HOURS FOR MOOD Rx Instructions: TAKE 1 CAPSULE BY MOUTH EVERY 12 HOURS FOR MOOD clonidine HCl 0.1 mg tablet 0.1 mg PO BID Qty: 180 3RF albuterol sulfate [ProAir HFA] 90 mcg/actuation HFA aerosol inhaler See Rx Instructions .ROUTE .COMPLEX Qty: 8.5 2RF Dose Instruction: INHALE 1 PUFF BY MOUTH EVERY 4 TO 6 HOURS NEEDED FOR SHORTNESS OF BREATH Rx Instructions: INHALE 1 PUFF BY MOUTH EVERY 4 TO 6 HOURS NEEDED FOR SHORTNESS OF BREATH dicyclomine 10 mg capsule See Rx Instructions .ROUTE .COMPLEX Qty: 60 0RF Dose Instruction: TAKE 1 CAPSULE(10 MG) BY MOUTH TWICE DAILY FOR IRRITABLE BOWEL SYNDROME Rx Instructions: TAKE 1 CAPSULE(10 MG) BY MOUTH TWICE DAILY FOR IRRITABLE BOWEL SYNDROME bupropion HCl 300 mg tablet extended release 24 hr See Rx Instructions .ROUTE .COMPLEX Qty: 30 0RF Dose Instruction: TAKE 1 TABLET(300 MG) BY MOUTH EVERY DAY IN THE MORNING FOR MOOD Rx Instructions: TAKE 1 TABLET(300 MG) BY MOUTH EVERY DAY IN THE MORNING FOR MOOD divalproex 500 mg tablet,delayed release (DR/EC) See Rx Instructions .ROUTE .COMPLEX Qty: 90 0RF Dose Instruction: TAKE 1 TABLET BY MOUTH THREE TIMES DAILY FOR SEIZURES Rx Instructions: TAKE 1 TABLET BY MOUTH THREE TIMES DAILY FOR SEIZURES albuterol sulfate 2.5 mg /3 mL (0.083 %) solution for nebulization 2.5 mg inhalation TID PRN (Reason: COPD) Rx Instructions: 2.5 mg inhaled; azithromycin 500 mg tablet 500 mg PO DAILY 7 Days Qty: 7 0RF prednisone 50 mg tablet 50 mg PO DAILY 5 Days Qty: 5 0RF Referrals Follow up/Referrals: Jared Pak MD [Primary Care Provider] - See instructions Activity Restrictions/Add. Instructions Additional Instructions/Restrictions: Please follow-up with your primary care provider. Please return to the emergency department if you develop any new or worsening symptoms or become concerned for your health. Clinical Impressions Clinical Impression: Encounter for general medical examination, Abnormal laboratory test result Discharge ED Provider: Otoniel Queen Adult HPI General Chief complaint: Recheck/Abnormal Lab/Rx Stated complaint: sent in to be evaluated Time Seen by Provider: 03/21/23 23:23 Mode of Arrival: Wheelchair Source of Information: Patient and Relative Limitations: No Limitations Description of Symptoms (Recalled from ER Triage Doc. by RN): pt states she was called back for positive blood culture History of Present Illness HPI narrative: 52-year-old female history as reported below presents with reported positive blood culture. She was seen a couple of days ago for COPD exacerbation. Patient has been improving with medications that were prescribed. No fever or systemic symptoms. She reports that she was called for positive blood culture. Related Data Home Medications Medication Instructions Recorded Confirmed albuterol sulfate 2.5 mg/3 mL 2.5 mg inhalati
[2023-03-21 23:45] VITALS: BP 148/72; PULSE 74; RESP 18; TEMP 36.6; O2SAT 98
== END 2023-03-21 23:45 | disposition home or self-care (01) ==
PROVIDERS: Emergency Provider Emergency Medicine; PCP Emergency Medicine
DX: R79.9 Abnormal finding of blood chemistry, unspecified (principal); I11.0 Hypertensive heart disease with heart failure; I50.31 Acute diastolic (congestive) heart failure; F41.9 Anxiety disorder, unspecified; J44.9 Chronic obstructive pulmonary disease, unspecified; F32.A Depression, unspecified; E78.5 Hyperlipidemia, unspecified; G43.909 Migraine, unspecified, not intractable, without status migrainosus; G62.9 Polyneuropathy, unspecified; I27.20 Pulmonary hypertension, unspecified; G40.909 Epilepsy, unspecified, not intractable, without status epilepticus; F17.210 Nicotine dependence, cigarettes, uncomplicated
CPT/HCPCS: 80053; 83605; 85025; 87040; 99285

== ENCOUNTER → 2023-03-23 09:10 | Outpatient (CLI) | payer MEDICAID, SELFPAY ==
--- NOTE | 2023-03-23 09:10 | CT_ITS ---
FINAL REPORT TECHNIQUE: Postcontrast axial images through the abdomen and pelvis were performed. This study was performed with techniques to keep radiation doses as low as reasonably achievable, (ALARA). Individualized dose reduction techniques using automated exposure control or adjustment of mA and/or kV according to the patient's size were employed. CLINICAL HISTORY: hematuria COMPARISON: 10/08/2021 FINDINGS: Abdomen: There are small to moderate bilateral pleural effusions. There is right lower lobe consolidation. The liver parenchyma is homogeneous. The gallbladder is absent. There are calcified granulomas in the spleen. The adrenals are normal. The pancreas is unremarkable. The kidneys enhance appropriately. The aorta is normal in caliber. No free fluid or adenopathy is identified. No findings for mechanical bowel obstruction are identified. Pelvis: The appendix is not identified. There is calcified mesh in the anterior pelvic wall. The urinary bladder is unremarkable. No free fluid, free air, abscess or adenopathy is identified. IMPRESSION: Small to moderate pleural effusions with right lower lobe consolidation. Calcified mesh in the anterior pelvic wall. Reviewed, Interpreted and Dictated by Jc Jackson MD Transcribed by Gracia Dhillon Authenticated and . [facility]
== END ==
PROVIDERS: PCP Emergency Medicine; Visit Provider Emergency Medicine
DX: R31.9 Hematuria, unspecified (principal)
CPT/HCPCS: 74177; Q9967

== ENCOUNTER → 2023-04-12 23:56 | Outpatient (CLI) | payer MEDICAID, SELFPAY ==
[2023-04-12 19:52] LABS: Free T4 (Free Thyroxine) 1.35 ng/dl (0.78-2.19); T4 (Thyroxine) 8.3 ug/dl (5.53-11.0)
[2023-04-12 20:05] LABS: Thyroid Stimulating Hormone 1.57 uIU/mL (0.465-4.68)
== END ==
LOC: LAB.DROPOF 23:56
PROVIDERS: PCP Emergency Medicine; Visit Provider Emergency Medicine
DX: E66.9 Obesity, unspecified (principal); Z68.28 Body mass index [BMI] 28.0-28.9, adult; Z83.49 Family history of other endocrine, nutritional and metabolic diseases
CPT/HCPCS: 84436; 84439; 84443

== ENCOUNTER → 2023-05-03 09:22 | Outpatient (CLI) | payer MEDICAID, SELFPAY ==
--- NOTE | 2023-05-03 09:23 | XR_ITS ---
FINAL REPORT CLINICAL HISTORY: osteoporosis screening COMPARISON: None FINDINGS: Using L1-4, the bone mineral density of the spine is 1.163 g/cm2, corresponding to T-score of 1.1, within normal limits. Using the left hip, the bone mineral density of the femoral neck is 0.757 g/cm2, corresponding to a T-score of -0.8, within normal limits. Using the right hip, the bone mineral density of the femoral neck is 0.806 g/cm2, corresponding to a T-score of -0.4, within normal limits. FRAX not reported because all T-scores at or above -1.0. NOTE: T-score: Standard deviation compared with peak bone mass of young adult mean. *Following the recommendations of the International Society of Bone densitometry, classification of hip BMD is based on the lower of two T-scores; total hip or femoral neck. IMPRESSION: Normal bone mineral density of the lumbar spine and hips. Reviewed, Interpreted and Dictated by Tone Hsu III, MD Transcribed by Daax Valladares Authenticated and [facility]
--- NOTE | 2023-05-03 11:30 | PC.NURSE ---
RESPIRATORY CARE NOTE: PT UNABLE TO DO PFT AT THIS TIME. PT MADE GOOD ATTEMPT JUST UNABLE TO GET THE LOOPS THAT WERE NEEDED. WHEN WE WENT TO DO THE WALK TEST SHE STATED THAT HER KNEES WERE SHAKEY SO SHE WAS UNABLE TO WALK AT THIS TIME.
== END ==
PROVIDERS: PCP Emergency Medicine; Visit Provider Emergency Medicine
DX: M81.0 Age-related osteoporosis without current pathological fracture (principal)
CPT/HCPCS: 77080

== ENCOUNTER 2023-05-06 09:06 | Day surgery (SDC) | payer MEDICAID, SELFPAY ==
[2023-05-03 14:23] VITALS: BMI 31.1
[2023-05-06 09:33] VITALS: BP 171/89; PULSE 96; RESP 18; TEMP 37.2; O2SAT 97
--- NOTE | 2023-05-06 10:03 | [facility].SCOPE ---
Procedure: Date: 05/06/23 Patient Date of :: 1970 Procedure Performed:: Total colonoscopy to terminal ileum with polypectomy Indications:: Patient is a 52-year-old female who presents for follow-up colonoscopy. I had done previous colonoscopy on 05/07/2022. At that time procedure time was approximately 1 hour 40 minutes. She had multiple large complex polyps. Final pathology revealed at least 8 tubular adenomas and 1 sessile serrated adenoma. Notable was a rectosigmoid polyp at approximately 20 cm. This was a complex polyp. It was removed in a piecemeal fashion. There was significant hyperperistalsis of the colon and significant spasticity which made visualization of this polyp site somewhat difficult. Ultimately the colonoscope was removed and Endo cuff was applied with reinsertion of the colonoscope. Additional polypectomy was performed and Rebecca ink was injected. It was difficult to determine if complete polypectomy was performed. At that time I had recommended repeat colonoscopy in 6 months. That was 1 year ago. Performing Provider:: Tone Cline MD Referring Provider:: Harvinder Pak MD Sedation:: MAC sedation Procedure:: Patient history was obtained and appropriate physical examination was performed. Patient's medications and allergies were reviewed. Informed consent was obtained after explaining the benefits, alternatives, and risks of the procedure including, but not limited to, bleeding, perforation, missed lesions, and adverse reaction to anesthesia medications. Patient was transported to endoscopy procedure room. Patient was connected to monitoring devices. Throughout the procedure the patient's blood pressure, pulse, and oxygen saturations were monitored continuously. Patient identification and planned procedure were verified by the staff. Patient was positioned in lateral decubitus position. Digital anorectal exam was performed. Variable stiffness Olympus colonoscope was inserted and advanced under direct visualization to the cecum. Adequacy of the colonic preparation was noted. The colonoscope was advanced a short distance into the terminal ileum. The colonoscope was then slowly withdrawn while carefully examining the color, texture, anatomy, and integrity of the mucosoa circumferentially. Within the rectum retroflexion was performed. Colonoscope was then withdrawn. . There was some liquid stool throughout the colon which was cleared with suctioning and irrigation. Careful surveillance was carried out. Patient had 3 small diminutive polyps in the right colon. These were removed with cold cutting snare. Specimen was retrieved with cold biopsy forceps. She had some significant hyperperistalsis and contractility of the colon which made visualization somewhat difficult. There was redundancy of the mucosa. Area which had been tattooed with Rebecca ink at the rectosigmoid band at approximately 20 cm was noted. Careful surveillance was carried out and there was no evidence of any residual polypoid tissue. . Findings:: Hyperperistalsis and hypercontractility of the colon Polyps as noted above Rare diverticulosis Recommendations:: Repeat colonoscopy pending pathology. Given prior history of multiple complex adenomatous polyps likely 2 years as this would be 3 years from her colonoscopy with numerous complex adenomatous polyps. Complications:: None immediately apparent Estimated blood obtained (mL): 1 Colonoscopy Component Colonoscopy Component Was a colonoscopy performed during today's procedure?: Yes Recommended follow up colonoscopy of at least 10 years?: No If no, follow up colonoscopy recommended in ___ years?: 2 Reason for not recommending >/= 10 yr follow-up interval?: See above recommendations
[2023-05-06 10:25] VITALS: O2SAT 98
[2023-05-06 10:57] VITALS: BP 140/100; PULSE 95; RESP 17; TEMP 36.2; O2SAT 93
[2023-05-06 11:07] VITALS: BP 151/88; PULSE 89; RESP 18; O2SAT 94
[2023-05-06 11:17] VITALS: BP 148/92; PULSE 85; RESP 18; O2SAT 96
[2023-05-06 11:27] VITALS: BP 141/59; PULSE 82; RESP 18; O2SAT 95
--- NOTE | 2023-05-06 16:02 | P.PNANES_ITS ---
[facility] Disclaimer: The information contained in this section may have been updated after the patient was seen, as this information can be updated by other users. Medical History (Updated 05/03/23 @ 14:26 by Daxa Sadler RN) Acute diastolic CHF (congestive heart failure) Allergies Anxiety Anxiety disorder Asthma COPD (chronic obstructive pulmonary disease) Depression Dyspnea on exertion Hilar lymphadenopathy History of COVID-19 History of gastroesophageal reflux (GERD) Hyperlipidemia Hypertension Incontinence Mediastinal lymphadenopathy Migraine Mood disorder Neuropathy Oxygen dependent Pleural effusion on right Pleural effusion on right Pneumonia Pneumonia Pulmonary embolism Pulmonary hypertension Right lower lobe pneumonia Seizure disorder Smoking greater than 30 pack years Urinary tract infection Surgical History History of breast biopsy History of cholecystectomy History of colonoscopy History of hysterectomy Family History Father Lung cancer Sister Ovarian cancer Kidney disease Lung cancer Mother Kidney disease Other Family history of diabetes mellitus type II Family history of hyperlipidemia Family history of hypertension Family history of migraine headaches Family history of myocardial infarction Social History (Updated 05/03/23 @ 14:26 by Daxa Sadler RN) Smoking Status: Current every day smoker tobacco type: cigarettes packs per day: 1 alcohol intake: never counseling provided: none substance use type: denies use current occupational status: disabled Travel in the last 8 weeks: None caregiver/support person: Yes household members: caregiver housing: assisted living facility lives independently: No do you feel safe at home: Yes victim of physical abuse: No victim of emotional abuse: No victim of sexual abuse: No would you like helpful sources: No [facility] Anesthesia Checklist Patient Identification Patient Identification: Arm Band and Family Structural Data Planned Operative Procedure/s: [id number] Consent for Planned Operative Procedure(s) Verified: Yes Verified Documents: Surgical Consent NPO Status Verified Time NPO: 00:00 Additional verifications Patient : No Anesthesia Reactions: No Hx Blood Transfusions: No Blood Transfusion Reaction: No Cephalosporin Allergy: No Previous Colonoscopy: No Airway Assessment Mallampati Score:: Class II C-Spine Mobility Assessed: Yes TMJ Mobility Assessed: Yes Dentition: Edentulous Neurological Assessment Level of Consciousness: Awake, Alert, Appropriate and Follows Commands Hx Seizures: No Numbness or tingling in extremities: No Anesthesia Plan ASA Class: II Anesthesia Type: MAC Preoperative Comments Pre-Operative Comments: Chronic Diarrhea, History of Asthma..HTN.
== END 2023-05-06 11:40 | disposition home or self-care (01) ==
PROVIDERS: PCP Emergency Medicine; Visit Provider Surgery
PROC: 0DJD8ZZ Inspection of Lower Intestinal Tract, Via Natural or Artificial Opening Endoscopic (ICD-10-PCS; CPT 45385; principal; 2023-05-06 10:30)
DX: Z12.11 Encounter for screening for malignant neoplasm of colon (principal); Z86.010 Personal history of colon polyps; R19.2 Visible peristalsis; K57.30 Diverticulosis of large intestine without perforation or abscess without bleeding; D12.2 Benign neoplasm of ascending colon
CPT/HCPCS: 45385

== ENCOUNTER 2023-08-18 20:45 | Outpatient (CLI) | payer MEDICAID, SELFPAY ==
[2023-08-18 19:57] LABS: Phencyclidine Screen,Urine Negative ng/ml (<25)
[2023-08-18 20:03] LABS: Benzodiazepines Screen,Urine Negative ng/ml (<200)
[2023-08-18 20:04] LABS: Amphetamine/Metha Screen,Urine Negative ng/ml (<1000)
[2023-08-18 20:05] LABS: Barbiturates Screen,Urine Negative ng/ml (<200)
[2023-08-18 20:09] LABS: Opiate Screen,Urine Negative ng/ml (<300)
[2023-08-18 20:15] LABS: Cannabinoid Screen,Urine Negative ng/ml (<50); Cocaine Screen,Urine Negative ng/ml (<300)
[2023-08-18 20:16] LABS: Methadone Screen,Urine Negative ng/ml (<300)
[2023-08-24 23:08] LABS: Gabapentin,Urine 38.4 ug/mL (.)
== END 2023-08-18 23:59 ==
LOC: LAB.DROPOF 20:45
PROVIDERS: Visit Provider Family Medicine
DX: Z79.899 Other long term (current) drug therapy (principal)
CPT/HCPCS: 80307

== ENCOUNTER 2023-08-23 11:57 | Emergency (ER) | payer MEDICAID, SELFPAY ==
[2023-08-23 12:35] VITALS: BP 115/75; PULSE 87; RESP 18; TEMP 36.7; O2SAT 94; BMI 26.9
--- NOTE | 2023-08-23 12:35 | ED_ITS ---
Discharge Plan Disposition Patient Disposition: Home, Self-Care Condition: Good Prescriptions Prescriptions: New phenazopyridine [Pyridium] 200 mg tablet 200 mg PO Q8H 2 Days Qty: 6 0RF nitrofurantoin monohyd/m-cryst [Macrobid] 100 mg Capsule 100 mg PO BID Qty: 10 0RF Rx Instructions: must administer with a meal/food No Action acetaminophen 500 mg tablet 1,000 mg PO DAILY Qty: 30 1RF Rx Instructions: TAKE 1 CAPLET BY MOUTH EVERY 6 HOURS FOR MILD TO MODERATE PAIN gabapentin 300 mg capsule 300 mg PO TID Patient Comments: TAKE 1 CAPSULE BY MOUTH THREE TIMES DAILY FOR PAIN clonazepam 1 mg tablet 0.5 mg PO BID Qty: 30 2RF albuterol sulfate [ProAir HFA] 90 mcg/actuation HFA aerosol inhaler See Rx Instructions .ROUTE .COMPLEX Qty: 8.5 1RF Rx Instructions: INHALE 1 PUFF BY MOUTH EVERY 4 TO 6 HOURS NEEDED FOR SHORTNESS OF BREATH escitalopram oxalate [Lexapro] 10 mg tablet 10 mg PO DAILY Qty: 30 2RF divalproex 500 mg tablet,delayed release (DR/EC) See Rx Instructions .ROUTE .COMPLEX Qty: 90 0RF Dose Instruction: TAKE 1 TABLET BY MOUTH THREE TIMES DAILY FOR SEIZURES Rx Instructions: TAKE 1 TABLET BY MOUTH THREE TIMES DAILY FOR SEIZURES dicyclomine 10 mg capsule See Rx Instructions .ROUTE .COMPLEX Qty: 60 0RF Dose Instruction: TAKE 1 CAPSULE(10 MG) BY MOUTH TWICE DAILY FOR IRRITABLE BOWEL SYNDROME Rx Instructions: TAKE 1 CAPSULE(10 MG) BY MOUTH TWICE DAILY FOR IRRITABLE BOWEL SYNDROME gabapentin 100 mg capsule See Rx Instructions .ROUTE .COMPLEX Qty: 60 0RF Dose Instruction: TAKE 1 CAPSULE BY MOUTH TWICE DAILY FOR NERVE PAIN Rx Instructions: TAKE 1 CAPSULE BY MOUTH TWICE DAILY FOR NERVE PAIN trazodone 100 mg tablet See Rx Instructions .ROUTE .COMPLEX Qty: 90 0RF Dose Instruction: TAKE 1 TABLET BY MOUTH EVERY NIGHT AT BEDTIME Rx Instructions: TAKE 1 TABLET BY MOUTH EVERY NIGHT AT BEDTIME clonidine HCl 0.1 mg tablet 0.1 mg PO BID Qty: 180 0RF bupropion HCl 300 mg tablet extended release 24 hr See Rx Instructions .ROUTE .COMPLEX Qty: 90 0RF Rx Instructions: TAKE 1 TABLET(300 MG) BY MOUTH EVERY DAY IN THE MORNING FOR MOOD Nuedexta 20-10 mg capsule See Rx Instructions .ROUTE .COMPLEX Qty: 180 0RF Rx Instructions: TAKE 1 CAPSULE BY MOUTH EVERY 12 HOURS FOR MOOD loperamide 2 mg capsule See Rx Instructions .ROUTE .COMPLEX Rx Instructions: TAKE 1 CAPSULE BY MOUTH EVERY 6 HOURS NEEDED FOR DIARRHEA albuterol sulfate 2.5 mg /3 mL (0.083 %) solution for nebulization 2.5 mg inhalation TID PRN (Reason: COPD) Rx Instructions: 2.5 mg inhaled; Referrals Follow up/Referrals: Ector Galindo DO [Primary Care Provider] - See instructions Activity Restrictions/Add. Instructions Additional Instructions/Restrictions: Drink plenty of fluids. Take tylenol or ibuprofen for pain or fever. Take the medications as directed. Follow up with your regular doctor. GO TO THE ER FOR ANY WORSENING SYMPTOMS The pyridium will make your urine turn orange, this is an expected side effect. It will stain your clothes if it comes into contact with them. We will culture the urine. That will tell what bacteria is causing your infection and which antibiotics will treat it best. Sometimes the first antibiotic we prescribe turns out to not work against different bacteria. So, make sure you follow up within 3 days if you are not getting better. Clinical Impressions Clinical Impression: UTI (urinary tract infection) Instructions Patient Instructions: Urine Culture, DI for Urinary Tract Infection (UTI), Phenazopyridine Discharge ED Provider: Dickson Roy [facility] General Stated complaint: cough, abdominal pain Time Seen by Provider: 08/23/23 12:35 History of Present Illness Provider Complaint: She states that she has had low back pain, dysuria, and urinary frequency for the past 3 days. Related Data Home Medications Medication Instructions Recorded Confirmed albuterol sulfate 2.5 mg/3 mL 2.5 mg inhalation TID PRN COPD 06/16/22 08/18/23 (0.083 %) solution for nebulization loperamide 2 mg capsule See Rx Instructions .Route 05/03/23 08/18/23 .COMPLEX diarrhea gabapentin 300 mg capsule 300 mg PO TID 08/18/23 08/18/23 Previous Rx's Medication Instructions Recorded acetaminophen 500 mg tablet 1,000 mg PO DAILY pain, fever #30 05/14/22 tabs clonazepam 1 mg tablet 0.5 mg PO BID mood #30 tabs 06/22/23 albuterol sulfate 90 mcg/actuation See Rx Instructions .Route 07/15/23 aerosol inhaler (ProAir HFA) .COMPLEX soa #8.5 grams dicyclomine 10 mg capsule See Rx Instructions .Route 07/15/23 .COMPLEX #60 caps divalproex 500 mg tablet,delayed See Rx Instructions .Route 07/15/23 release .COMPLEX #90 tabs escitalopram oxalate 10 mg tablet 10 mg PO DAILY #30 tabs 07/15/23 (Lexapro) gabapentin 100 mg capsule See Rx Instructions .Route 07/19/23 .COMPLEX #60 caps bupropion HCl 300 mg 24 hr tablet, See Rx Instructions .Route 08/05/23 extended release .COMPLEX Depression #90 tabs clonidine HCl 0.1 mg tablet 0.1 mg PO BID mood #180 tabs 08/05/23 dextromethorphan 20 mg-quinidine See Rx Instructions .Route 08/05/23 10 mg capsule (Nuedexta) .COMPLEX mood #180 caps trazodone 100 mg tablet See Rx Instructions .Route 08/05/23 .COMPLEX #90 tabs nitrofurantoin 100 mg PO BID #10 caps 08/23/23 monohydrate/macrocrystals 100 mg capsule (Macrobid) phenazopyridine 200 mg tablet 200 mg PO Q8H 2 days #6 tabs 08/23/23 (Pyridium) Allergies Allergy/AdvReac Type Severity Reaction Status Date / Time banana Allergy Mild Unknown Verified 08/23/23 12:49 [From BANANAS (FOOD/DRUG)] allergy reaction chocolate flavor Allergy Mild UNKNOWN Verified 08/23/23 12:49 [From CHOCOLATE (FOOD/DRUG)] nicotine patch AdvReac Mild itching/mikki Uncoded 06/22/23 11:10 h PFSH PFS Disclaimer: The information contained in this section may have been updated after the patient was seen, as this information can be updated by other users. Medical History Acute diastolic CHF (congestive heart failure) Allergies Anxiety Anxiety disorder Asthma COPD (chronic obstructive pulmonary disease) Depression Dyspnea on exertion Hilar lymphadenopathy History of COVID-19 History of gastroesophageal reflux (GERD) Hyperlipidemia Hypertension Incontinence INCONTINENCE AT TIMES Mediastinal lymphadenopathy Migraine Mood disorder Neuropathy Oxygen dependent Pleural effusion on right Pleural effusion on right Pneumonia Pneumonia Pulmonary embolism Pulmonary hypertension Recurrent pneumonia Right lower lobe pneumonia Seizure disorder Smoking greater than 30 pack years Urinary tract infection Surgical History History of breast biopsy History of cholecystectomy History of colonoscopy History of hysterectomy Family History Father Lung cancer Sister Ovarian cancer Kidney disease Lung cancer Mother Kidney disease Other Family history of diabetes mellitus type II Family history of hyperlipidemia Family history of hypertension Family history of migraine headaches Family history of myocardial infarction Social History Smoking Status: Current every day smoker tobacco type: cigarettes packs per day: 1 alcohol intake: never counseling provided: none substance use type: denies use current occupational status: disabled Travel in the last 8 weeks: None caregiver/support person: Yes household members: caregiver housing: assisted living facility lives independently: No do you feel safe at home: Yes victim of physical abuse: No victim of emotional abuse: No victim of sexual abuse: No would you like helpful sources: No ROS Obtained: Yes All systems reviewed & no additional complaints except as documented Constitutional Constitutional: Reports system reviewed and no additional complaints, except as documented, Denies chills and Denies fever(s) Eyes Eyes: Denies eye discharge ENT Ears, Nose, Mouth, and Throat: Denies dysphagia, Denies sore throat and Denies t hroat swelling Cardiovascular Cardiovascular: Denies chest pain and Denies dyspnea Respiratory Respiratory: Denies chest congestion, Denies cough and Denies dyspnea Gastrointestinal Gastrointestingal: Denies abdominal pain, constipation, diarrhea, dysphagia, nausea or vomiting Genitourinary Female Genitourinary: Reports as per HPI, Reports dysuria, Reports urinary frequency, Denies urinary incontinence, Reports urinary hesitancy and Reports urinary urgency Musculoskeletal Musculoskeletal: Denies arthralgias and Reports back pain Integumentary/Breasts Skin/Breast: Denies rash Neurologic Neurologic: Denies paresthesias Allergic/Immunologic Allergic/Immunologic: Denies throat swelling Physical Exam General General appearance: alert and in no apparent distress Head Head exam: atraumatic and normocephalic Eye Eye exam: Present normal appearance, PERRL and EOMI ENT ENT exam: Present normal exam, mucous membranes moist, TM's normal bilaterally and normal external ear exam Neck Neck exam: Present normal inspection, full ROM and trachea midline; Absent tenderness, meningismus or lymphadenopathy Chest Chest inspection: Present normal inspection and symmetric chest wall rise; Absent tenderness Respiratory Respiratory exam: Present normal lung sounds bilaterally; Absent respiratory distress, wheezes or stridor Cardiovascular Cardiovascular exam: Present regular rate, normal rhythm and normal heart sounds Abdominal Exam Abdominal exam: Present soft and normal bowel sounds; Absent distention, tenderness, guarding, rebound, rigidity, incision, psoas sign, obturator sign, heel tap sign, Green's sign, Rovsing's sign or tenderness at McBurney's Point Extremities Exam Extremities exam: Present normal inspection, full ROM and normal capillary refill; Absent tenderness, edema, joint swelling, calf tenderness or cyanosis Back Exam Back exam: Present normal inspection and full ROM; Absent tenderness, CVA tenderness (R) or CVA tenderness (L) Neurological Exam Neurological exam: Present alert, oriented X3 and normal gait Psychiatric Psychiatric exam: Present normal affect and normal mood Skin Skin exam: Present warm, dry, intact and normal color Lymphatic Lymphatic Findings: no adenopathy Medical Decision Making Medical Records Medical records reviewed: No I reviewed the patient's medical records. Vlad Inquiry Pt receiving controlled substance: No Lab Data Lab results reviewed: Yes I reviewed the patient's lab results.
[2023-08-23 13:16] LABS: Apearance,Urine Clear (Clear); Bilirubin,Urine 1+ (Negative); Blood, Urine Trace (Negative); Color,Urine Dark Yellow (Yellow); Glucose,Urine (UA) Negative (Negative); Ketones,Urine Negative (Negative); Protein,Urine Negative (Negative); UTC Leukocyte Esterase,Urine 1+ (Negative); UTC Nitrate,Urine Negative (Negative); Urobilinogen,Urine 2 EU/dl (0.2)
[2023-08-23 13:25] VITALS: BP 115/75; PULSE 87; RESP 18; TEMP 36.7; O2SAT 94
== END 2023-08-23 13:25 | disposition home or self-care (01) ==
PROVIDERS: Emergency Provider Nurse Practitioner Family; PCP Internal Medicine
DX: N39.0 Urinary tract infection, site not specified (principal); B96.89 Other specified bacterial agents as the cause of diseases classified elsewhere; M54.59 Other low back pain; F17.210 Nicotine dependence, cigarettes, uncomplicated; J44.9 Chronic obstructive pulmonary disease, unspecified; I11.0 Hypertensive heart disease with heart failure; I50.31 Acute diastolic (congestive) heart failure; E78.5 Hyperlipidemia, unspecified; I27.20 Pulmonary hypertension, unspecified
CPT/HCPCS: 81003; 87086; 99212; 99214; G0463

== ENCOUNTER 2023-08-28 13:23 | Emergency (ER) | payer MEDICAID, SELFPAY ==
[2023-08-28 14:00] VITALS: BP 133/72; PULSE 85; RESP 18; TEMP 36.7; O2SAT 94; BMI 27.3
--- NOTE | 2023-08-28 14:12 | EXP.UTC ---
Discharge Plan Disposition Patient Disposition: Home, Self-Care Condition: Good Prescriptions Prescriptions: No Action acetaminophen 500 mg tablet 1,000 mg PO DAILY Qty: 30 1RF Rx Instructions: TAKE 1 CAPLET BY MOUTH EVERY 6 HOURS FOR MILD TO MODERATE PAIN gabapentin 300 mg capsule 300 mg PO TID Patient Comments: TAKE 1 CAPSULE BY MOUTH THREE TIMES DAILY FOR PAIN clonazepam 1 mg tablet 0.5 mg PO BID Qty: 30 2RF albuterol sulfate [ProAir HFA] 90 mcg/actuation HFA aerosol inhaler See Rx Instructions .ROUTE .COMPLEX Qty: 8.5 1RF Rx Instructions: INHALE 1 PUFF BY MOUTH EVERY 4 TO 6 HOURS NEEDED FOR SHORTNESS OF BREATH escitalopram oxalate [Lexapro] 10 mg tablet 10 mg PO DAILY Qty: 30 2RF divalproex 500 mg tablet,delayed release (DR/EC) See Rx Instructions .ROUTE .COMPLEX Qty: 90 0RF Dose Instruction: TAKE 1 TABLET BY MOUTH THREE TIMES DAILY FOR SEIZURES Rx Instructions: TAKE 1 TABLET BY MOUTH THREE TIMES DAILY FOR SEIZURES dicyclomine 10 mg capsule See Rx Instructions .ROUTE .COMPLEX Qty: 60 0RF Dose Instruction: TAKE 1 CAPSULE(10 MG) BY MOUTH TWICE DAILY FOR IRRITABLE BOWEL SYNDROME Rx Instructions: TAKE 1 CAPSULE(10 MG) BY MOUTH TWICE DAILY FOR IRRITABLE BOWEL SYNDROME gabapentin 100 mg capsule See Rx Instructions .ROUTE .COMPLEX Qty: 60 0RF Dose Instruction: TAKE 1 CAPSULE BY MOUTH TWICE DAILY FOR NERVE PAIN Rx Instructions: TAKE 1 CAPSULE BY MOUTH TWICE DAILY FOR NERVE PAIN trazodone 100 mg tablet See Rx Instructions .ROUTE .COMPLEX Qty: 90 0RF Dose Instruction: TAKE 1 TABLET BY MOUTH EVERY NIGHT AT BEDTIME Rx Instructions: TAKE 1 TABLET BY MOUTH EVERY NIGHT AT BEDTIME clonidine HCl 0.1 mg tablet 0.1 mg PO BID Qty: 180 0RF bupropion HCl 300 mg tablet extended release 24 hr See Rx Instructions .ROUTE .COMPLEX Qty: 90 0RF Rx Instructions: TAKE 1 TABLET(300 MG) BY MOUTH EVERY DAY IN THE MORNING FOR MOOD Nuedexta 20-10 mg capsule See Rx Instructions .ROUTE .COMPLEX Qty: 180 0RF Rx Instructions: TAKE 1 CAPSULE BY MOUTH EVERY 12 HOURS FOR MOOD loperamide 2 mg capsule See Rx Instructions .ROUTE .COMPLEX Rx Instructions: TAKE 1 CAPSULE BY MOUTH EVERY 6 HOURS NEEDED FOR DIARRHEA phenazopyridine [Pyridium] 200 mg tablet 200 mg PO Q8H 2 Days Qty: 6 0RF nitrofurantoin monohyd/m-cryst [Macrobid] 100 mg Capsule 100 mg PO BID Qty: 10 0RF Rx Instructions: must administer with a meal/food albuterol sulfate 2.5 mg /3 mL (0.083 %) solution for nebulization 2.5 mg inhalation TID PRN (Reason: COPD) Rx Instructions: 2.5 mg inhaled; Referrals Follow up/Referrals: Provider,Referral, MD [Primary Care Provider] - See instructions Activity Restrictions/Add. Instructions Additional Instructions/Restrictions: Drink plenty of fluids. Take tylenol for pain or fever. Follow up with your regular doctor. GO TO THE ER FOR ANY WORSENING SYMPTOMS Clinical Impressions Clinical Impression: Acute viral syndrome Instructions Patient Instructions: DI for Viral Syndrome [place]charge ED Provider[place]on [place] [facility] [place] Stated complaint: Congestion,chills,no appitite Time Seen by Provider: 08/28/23 14:11 History of Present Illness Provider Complaint: She states that for the past 2 days she has had chills and body aches. She was treated for a uti but she states those symptoms have completely resolved. She denies any cough or congestion or chest pain. Related Data Home Medications Medication Instructions Recorded Confirmed albuterol sulfate 2.5 mg/3 mL 2.5 mg inhalation TID PRN COPD 06/16/22 08/18/23 (0.083 %) solution for nebulization loperamide 2 mg capsule See Rx Instructions .Route 05/03/23 08/18/23 .COMPLEX diarrhea gabapentin 300 mg capsule 300 mg PO TID 08/18/23 08/18/23 Previous Rx's Medication Instructions Recorded acetaminophen 500 mg tablet 1,000 mg PO DAILY pain, fever #30 05/14/22 tabs clonazepam 1 mg tablet 0.5 mg PO BID mood #30 tabs 06/22/23 albuterol sulfate 90 mcg/actuation See Rx Instructions .Route 07/15/23 aerosol inhaler (ProAir HFA) .COMPLEX soa #8.5 grams dicyclomine 10 mg capsule See Rx Instructions .Route 07/15/23 .COMPLEX #60 caps divalproex 500 mg tablet,delayed See Rx Instructions .Route 07/15/23 release .COMPLEX #90 tabs escitalopram oxalate 10 mg tablet 10 mg PO DAILY #30 tabs 07/15/23 (Lexapro) gabapentin 100 mg capsule See Rx Instructions .Route 07/19/23 .COMPLEX #60 caps bupropion HCl 300 mg 24 hr tablet, See Rx Instructions .Route 08/05/23 extended release .COMPLEX Depression #90 tabs clonidine HCl 0.1 mg tablet 0.1 mg PO BID mood #180 tabs 08/05/23 dextromethorphan 20 mg-quinidine See Rx Instructions .Route 08/05/23 10 mg capsule (Nuedexta) .COMPLEX mood #180 caps trazodone 100 mg tablet See Rx Instructions .Route 08/05/23 .COMPLEX #90 tabs nitrofurantoin 100 mg PO BID #10 caps 08/23/23 monohydrate/macrocrystals 100 mg capsule (Macrobid) phenazopyridine 200 mg tablet 200 mg PO Q8H 2 days #6 tabs 08/23/23 (Pyridium) Allergies Allergy/AdvReac Type Severity Reaction Status Date / Time banana Allergy Mild Unknown Verified 08/28/23 14:21 [From BANANAS (FOOD/DRUG)] allergy reaction chocolate flavor Allergy Mild UNKNOWN Verified 08/28/23 14:21 [From CHOCOLATE (FOOD/DRUG)] nicotine patch AdvReac Mild itching/mikki Uncoded 06/22/23 11:10 h PFSH PFS Disclaimer: The information contained in this section may have been updated after the patient was seen, as this information can be updated by other users. Medical History Acute diastolic CHF (congestive heart failure) Allergies Anxiety Anxiety disorder Asthma COPD (chronic obstructive pulmonary disease) Depression Dyspnea on exertion Hilar lymphadenopathy History of COVID-19 History of gastroesophageal reflux (GERD) Hyperlipidemia Hypertension Incontinence INCONTINENCE AT TIMES Mediastinal lymphadenopathy Migraine Mood disorder Neuropathy Oxygen dependent Pleural effusion on right Pleural effusion on right Pneumonia Pneumonia Pulmonary embolism Pulmonary hypertension Recurrent pneumonia Right lower lobe pneumonia Seizure disorder Smoking greater than 30 pack years Urinary tract infection Surgical History History of breast biopsy History of cholecystectomy History of colonoscopy History of hysterectomy Family History Father Lung cancer Sister Ovarian cancer Kidney disease Lung cancer Mother Kidney disease Other Family history of diabetes mellitus type II Family history of hyperlipidemia Family history of hypertension Family history of migraine headaches Family history of myocardial infarction Social History Smoking Status: Current every day smoker tobacco type: cigarettes packs per day: 1 alcohol intake: never counseling provided: none substance use type: denies use current occupational status: disabled Travel in the last 8 weeks: None caregiver/support person: Yes household members: caregiver housing: assisted living facility lives independently: No do you feel safe at home: Yes victim of physical abuse: No victim of emotional abuse: No victim of sexual abuse: No would you like helpful sources: No ROS Obtained: Yes All systems reviewed & no additional complaints except as documented Constitutional Constitutional: Reports body ache, Reports chills and Denies fever(s) Eyes Eyes: Denies eye discharge ENT Ears, Nose, Mouth, and Throat: Reports as per HPI Cardiovascular Cardiovascular: Denies chest pain Respiratory Respiratory: Denies chest congestion and Reports cough Gastrointestinal Gastrointestingal: Reports nausea; Denies abdominal pain, constipation, cramping, diarrhea or vomiting Musculoskeletal Musculoskeletal: Denies arthralgias Integumentary/Breasts Skin/Breast: Denies rash Neurologic Neurologic: Denies paresthesias Physical Exam General General appearance: alert and in no apparent distress Head Head exam: atraumatic, normocephalic and normal inspection Eye Eye exam: Present normal appearance, PERRL and EOMI ENT ENT exam: Present normal exam, normal oropharynx, mucous membranes moist, TM's normal bilaterally and normal external ear exam Neck Neck exam: Present normal inspection, full ROM and trachea midline; Absent meningismus or lymphadenopathy Chest Chest inspection: Present normal inspection and symmetric chest wall rise; Absent tenderness Respiratory Respiratory exam: Present normal lung sounds bilaterally; Absent respiratory distress Cardiovascular Cardiovascular exam: Present regular rate and normal rhythm; Absent JVD Abdominal Exam Abdominal exam: Present soft and normal bowel sounds; Absent distention, tenderness or guarding Extremities Exam Extremities exam: Present normal inspection, full ROM and normal capillary refill; Absent calf tenderness Back Exam Back exam: Present normal inspection; Absent tenderness, CVA tenderness (R) or CVA tenderness (L) Neurological Exam Neurological exam: Present alert and oriented X3 Psychiatric Psychiatric exam: Present normal affect and normal mood Skin Skin exam: Present warm, dry, intact and normal color Lymphatic Lymphatic Findings: no adenopathy Medical Decision Making Medical Records Medical records reviewed: No I reviewed the patient's medical records. Vlad Inquiry Pt receiving controlled substance: No Lab Data Lab results reviewed: Yes I reviewed the patient's lab results.
[2023-08-28 14:27] LABS: UTC Influenza A Antigen Negative (Negative); UTC Influenza B Antigen Negative (Negative); UTC Strep Screen (Rapid) Negative (Negative)
[2023-08-28 14:56] LABS: Adenovirus,PCR Not Detected (NotDetected); Coronavirus 19, PCR Not Detected (NotDetected); Coronavirus 229E Not Detected (NotDetected); Coronavirus NL63 Not Detected (NotDetected); Coronavirus OC43 Not Detected (NotDetected); Coronovirus HKU1,PCR Not Detected (NotDetected); Human Metapneumovirus Not Detected (NotDetected); Influenza A, PCR Not Detected (NotDetected); Influenza AH1, 2009 Not Detected (NotDetected); Influenza AH1, PCR Not Detected (NotDetected); Influenza AH3,PCR Not Detected (NotDetected); Influenza B, PCR Not Detected (NotDetected); Parainfluenza 1, PCR Not Detected (NotDetected); Parainfluenza 2, PCR Not Detected (NotDetected); Parainfluenza 3, PCR Not Detected (NotDetected); Parainfluenza 4, PCR Not Detected (NotDetected); Respiratory Syncytial Virus Not Detected (NotDetected); Rhinovirus/Enterovirus Not Detected (NotDetected)
[2023-08-28 15:02] VITALS: BP 133/72; PULSE 85; RESP 18; TEMP 36.7; O2SAT 94
== END 2023-08-28 15:02 | disposition home or self-care (01) ==
PROVIDERS: Emergency Provider Nurse Practitioner Family
DX: M79.18 Myalgia, other site (principal); R68.83 Chills (without fever); F17.210 Nicotine dependence, cigarettes, uncomplicated; J44.9 Chronic obstructive pulmonary disease, unspecified; I11.0 Hypertensive heart disease with heart failure; I50.31 Acute diastolic (congestive) heart failure; K21.9 Gastro-esophageal reflux disease without esophagitis; E78.5 Hyperlipidemia, unspecified
CPT/HCPCS: 87632; 87635; 87804; 87880; 99212; 99213; G0463

== ENCOUNTER 2023-09-23 13:50 | Outpatient (CLI) | payer MEDICAID, SELFPAY ==
--- NOTE | 2023-09-23 13:55 | CT_ITS ---
FINAL REPORT TECHNIQUE: Axial images were obtained through the chest without contrast. CLINICAL HISTORY: Effusion / Non resolving RLL Pneumonia COMPARISON: 08/21/2022 FINDINGS: There is a small right pleural effusion, stable, as well as a moderate left pleural effusion, which is new since the prior exam. There is a dense airspace opacity in the right lung base, that appears similar to the prior exam of August. The heart size is normal. There is no pericardial or pleural effusion. Limited images of the upper abdomen are unremarkable. IMPRESSION: Small right pleural effusion, stable, with a moderate left pleural effusion, new since the prior exam. Dense airspace opacity in the right lung base, that appears similar to the prior exam, and may represent rounded atelectasis. Reviewed, Interpreted and Dictated by Jc Jackson MD Transcribed by Shelia Walton Authenticated and [facility]
== END 2023-09-23 23:59 ==
LOC: RAD 13:51
PROVIDERS: PCP Nurse Practitioner Family; Visit Provider Internal Medicine Pulmonary Disease
DX: J90 Pleural effusion, not elsewhere classified (principal); R59.0 Localized enlarged lymph nodes; R91.8 Other nonspecific abnormal finding of lung field; J18.9 Pneumonia, unspecified organism; F17.210 Nicotine dependence, cigarettes, uncomplicated
CPT/HCPCS: 71250

== ENCOUNTER 2023-10-13 09:47 | Outpatient (CLI) | payer MEDICAID, SELFPAY ==
--- NOTE | 2023-10-13 09:48 | CA_ITS ---
APPROVED REPORT EXAM: Comprehensive 2D, Doppler, and color-flow Echocardiogram Lawyer Criminal: JORGE Manjarrez, RVS Ht: 5 ft 3 in Wt: 154lbs BSA: 1.73 BP: 113/61 mmHg Indications: SOA, portable O2, Smoker, COPD, HTN, HLD, Anxiety, Hx-PE's [facility] resident due to metally handicaped 2D Dimensions Left Atrium 3.18 cm LA Volume 97.20 mL LA Volume Index 54.90 mL/m2 (M/F) 16-34 M-Mode Dimensions RVDd 2.45 cm (0.9-2.6) LA Diam 4.44 cm (1.9-4.0) LVDd 5.13 cm (3.5-5.7) LVDs 3.59 cm (3.5-5.7) IVSd 0.80 cm (0.6-1.1) PWd 0.80 cm (0.6-1.1) EF (Teich) 56.90% EPSs 0.47 cm FS 30.00% EDV (Teich) 125.50 mL TAPSE 1.84 (<1.7) ESV (Teich) 54.10 mL LV Diastology E Decel Time 187 (160-240 msec) E/A Ratio 1.86 MED A' 9.80 cm/s LAT A' 11.80 cm/s Aortic Valve TIFFANIE Index 1.05 cm2/m2 AoV Peak Jamaal. 138.0 (50-130 cm/s) AO Peak GR. 7.60 mmHg AO Mean GR. 3.80 (<5 mmHg) AO VTI 28.7 (18-25 cm) TIFFANIE (VTI) 1.85 (2.5-4.5 cm2) Mitral Valve MV A Velocity 60.0 (40-130 cm/s) E/A Ratio 1.86 Pulmonary Valve PV Peak Velocity 85.0 (50-150 cm/s) Tricuspid Valve TR P. Velocity 401.00 cm/s RAP Estimate 10.00 mmHg RVSP 74.40 mmHg Left Ventricle The left ventricle is normal size. The left ventricular systolic function is normal. The left ventricular ejection fraction is within the normal range. There is normal left ventricular wall thickness. There is normal LV segmental wall motion. The left ventricular diastolic function is normal. LVEF is 60%. Right Ventricle The right ventricle is normal size. The right ventricular systolic function is normal. There is increased RV wall thickness. Atria The left atrium moderately dilated. Right atrium is mildly dilated. There is no Doppler evidence of interatrial shunt. Aortic Valve The aortic valve opens well. There is no aortic valvular stenosis. No aortic regurgitation is present. Mitral Valve The mitral valve is normal in structure. No evidence of mitral valve stenosis. There is no mitral valve regurgitation noted. Tricuspid Valve The tricuspid valve leaflets are thin and pliable. Mild tricuspid regurgitation. RVSP is > 60 mmHg. Pulmonic Valve The pulmonary valve is normal in structure. Trace pulmonic regurgitation. Great Vessels The aortic root is normal in size. The ascending aorta is normal in size. IVC is normal in size and collapses >50% with inspiration. Pericardium There is no pericardial effusion. Other Information Study Quality: Fair Conclusion Normal biventricular systolic function. Biatrial dilation. Mild TR. RVSP markedly elevated > 60 mmHg. Electronically signed by : Marian Vines MD 10/15/2023 22:45:43
== END 2023-10-13 23:59 ==
LOC: RT 09:48
PROVIDERS: PCP Internal Medicine; Visit Provider Internal Medicine Pulmonary Disease
DX: R06.02 Shortness of breath (principal)
CPT/HCPCS: 93306

== ENCOUNTER 2023-11-01 07:08 | Outpatient (CLI) | payer MEDICAID, SELFPAY ==
--- NOTE | 2023-11-01 07:17 | NM_ITS ---
APPROVED REPORT Exam: Nuclear Stress Test Indication: C.P., SOB Patient Location: Outpatient Stress Tech: Teresa Bhatti ME Tech:Maricarmen Jeong KODAK RT(R)(N) Ht: 5 ft 3 in Wt: 185 lbs Bra Size: C HR: 68 bpm BP: 124/64 mmHg BSA: 1.87 m2 TID: 1.13 BMI: 32.7 History: C.P., SOB PT COULD NOT LAY ON STOMACH FOR PRONE IMAGES Procedure: Patient received 0.0 mg of intravenous Lexiscan, resting heart rate 68 bpm, resting blood pressure 124/64 mmHg, with Lexiscan maximum heart rate achieved was 84 bpm which is % of the maximum predicted heart rate and blood pressure was 150/74 mmHg. With Lexiscan, patient denied any complaint of chest pain. Cardiac Stress and Resting SPECT Images: Cardiac Stress and Resting SPECT images were obtained using technetium 99m Myoview 30.6 mCi stress and 10.32 mCi at rest. The patient could not lie on his abdomen. Therefore, prone stress imaging could not be performed. This may affect the diagnostic interpretation of the study findings. Resting and stress imaging in supine positions demonstrate no evidence of fixed or reversible perfusion defects. Gated imaging demonstrates normal global and regional LV systolic function. LVEF is calculated at 63%. Incidental finding of increased RV radiotracer uptake, suggestive of increased RV wall thickness. Conclusion: No evidence of fixed or reversible perfusion defects. Gated imaging demonstrates normal global and regional LV systolic function. LVEF is calculated at 63%. Incidental finding of increased RV radiotracer uptake, suggestive of increased RV wall thickness. Electronically signed by : Marian Vines MD 11/02/2023 13:17:27
[2023-11-01] MEDS: ISOTOPE MYOVIEW (PER STUDY) 1 DOSE IV (08:46)
[2023-11-01] MEDS: REGADENOSON 0.4MG/5ML SYRINGE 0.400000000000000022 MG IV (08:46)
[2023-11-01] MEDS: SODIUM CHLORIDE 0.9% 10ML SYR (RAD ONLY) 10 ML IV ×2 (08:46)
--- NOTE | 2023-11-01 09:24 | CA_ITS ---
APPROVED REPORT Exam: Pharmacologic Technologist: Teresa Danielson, Ht: 5 ft 3 in Wt: 156 lbs BSA: 1.74 m2 HR: 67 bpm BP: 124/64 mmHg Rhythm: NSR Medical History Medications: Clonidine,,,,, Gabapentin,,,,, ClonAZEPAM,,,,, Albuterol,,,,, Tylenol,,,,, DicyCLOMINE,,,,, BuPROPION,,,,, Divalproex,,,,, Loperamide,,,,, Macrobid,,,,, BREztri,,,,, PYRIDium,,,,, Stress Test Details Test: LEXISCAN Reason for pharmacologic stress test: physical limitation. HR Resting HR: 68 bpm Max Heart Rate (APMHR): 167 bpm Max HR Achieved: 84 bpm Target HR (85% APMHR): 142 bpm % of APMHR: 50 Recovery HR: 79 bpm BP Resting BP: 124/64 mmHg Max BP: 150/74 mmHg Recovery BP: 133.0/74.0 mmHg ECG Resting ECG: Normal Stress ECG: No significant ST changes Clinical Exercise duration: 04:00 min Highest Stage Achieved: Stress ECG Conclusion Symptoms: SOA & Chest pain. Arrhythmias/Ectopy: None ST-T changes: Unremarkable Lexiscan stress test. Myoview images reported separately. Test Summary REST . . . . . . . Resting REST 03:52 . . 68 . 124/ 64 . . Stage 1 01:00 . . 80 . . . . Stage 2 01:00 . . 80 . . . . Stage 3 01:00 . . 80 . 150/ 74 . . Stage 4 01:00 . . 77 . 143/ 71 . Stop exercise at 04:00 RECOVERY 01:00 . . 80 . . . . RECOVERY 01:17 . . 78 . 133/ 74 . . Electronically signed by : Marian Vines MD 11/02/2023 13:10:43
[2023-11-01 10:23] LABS: Basophils % 0.6 % (0.1-2.0); Eosinophils # 0.1 K/mm3 (0.0-0.4); Eosinophils % 1.6 % (0.1-12.0); Hematocrit 36.2 % (37.0-47.0); Hemoglobin 10.8 g/dL (12.2-16.2); Lymphocytes % 26.9 % (10-50); Mean Corpuscular Hemoglobin 25.1 pg (27.0-31.2); Mean Corpuscular Volume 83.7 fl (81-99); Mean Platelet Volume 8.1 fl (7.4-10.4); Monocytes # 0.6 K/mm3 (0.1-1.0); Monocytes % 8.7 % (1.7-9.3); Neutrophils # 4.6 K/mm3 (1.8-7.8); Neutrophils % 62.2 % (37.0-80.0); Platelet Count 315 K/mm3 (142-424); Red Blood Count 4.32 M/mm3 (4.20-5.40); Red Cell Distribution Width 15.9 % (11.5-17.5); White Blood Count 7.3 K/mm3 (4.8-10.8)
[2023-11-01 10:48] LABS: Alanine Aminotransferase 5 U/L (12-78); Albumin Level 3.2 g/dl (3.5-5.0); Alkaline Phosphatase 106 U/L (38-126); Anion Gap 6.4 mEq/L (5-15); Aspartate Amino Transferase 16 U/L (14-36); Bilirubin,Direct 0.1 mg/dl (0.0-0.4); Bilirubin,Indirect 0.2 mg/dL (0.0-0.9); Bilirubin,Total 0.3 mg/dl (0.2-1.3); Bilirubin,Unconjugated 0.2 mg/dL (0.0-1.1); Blood Urea Nitrogen 21 mg/dl (7-17); Calcium 8.6 mg/dl (8.4-10.2); Carbon Dioxide 36 mmol/L (22.0-30.0); Chloride 103 mmol/L (98-107); Chol/HDL Ratio 2.6 (1-3.5); Cholesterol 155 mg/dl (140-200); Estimated Glomerular Filt Rate 167 ml/min (>60); GFR (African American) 202 ML/MIN (>60); HDL Cholesterol 60 mg/dl (40-60); Magnesium 2.2 mg/dl (1.6-2.3); Potassium 4.4 mmoL/L (3.5-5.1); Sodium 141 mmol/L (136-145); Total Protein,Serum 7.2 g/dl (6.3-8.2); Triglycerides 74 mg/dl (30-150); VLDL Cholesterol 15 mg/dL (0-40)
[2023-11-01 11:01] LABS: Direct LDL Cholesterol 76.03 mg/dL (100-129)
[2023-11-01 11:04] LABS: Free T4 (Free Thyroxine) 1.39 ng/dl (0.78-2.19)
[2023-11-01 11:15] LABS: Glucose 50 mg/dl (74-100)
[2023-11-01 11:19] LABS: Thyroid Stimulating Hormone 3.92 uIU/mL (0.465-4.68)
== END 2023-11-01 23:59 ==
PROVIDERS: PCP Internal Medicine; Visit Provider Nurse Practitioner
DX: R06.00 Dyspnea, unspecified (principal); R07.9 Chest pain, unspecified; I50.30 Unspecified diastolic (congestive) heart failure; I50.31 Acute diastolic (congestive) heart failure; I27.20 Pulmonary hypertension, unspecified; R94.31 Abnormal electrocardiogram [ECG] [EKG]; R53.83 Other fatigue; R40.0 Somnolence; R06.83 Snoring; G47.33 Obstructive sleep apnea (adult) (pediatric); Z72.0 Tobacco use
CPT/HCPCS: 36415; 78452; 80048; 80061; 80076; 83735; 84439; 84443; 85025; 93017; 93018; A9502; J2785

== ENCOUNTER 2023-12-01 17:23 | Emergency (ER) | payer MEDICAID, SELFPAY ==
--- NOTE | 2023-12-01 17:25 | XR_ITS ---
PROCEDURE INFORMATION: Exam: XR Left Ankle Exam date and time: 12/01/2023 5:28 PM Age: 53 years old Clinical indication: Injury or trauma; Fall; Swelling (edema); Ankle; Left TECHNIQUE: Imaging protocol: Radiologic exam of the left ankle. Views: 3 or more views. COMPARISON: US ARTERIAL LOWER EXT REST 08/14/2020 11:07 AM FINDINGS: Bones/joints: There is diffuse osseous demineralization. There is small osseous debris noted over the lateral aspect of the talus which could reflect a small avulsion injury. Soft tissues: There is diffuse soft tissue swelling. IMPRESSION: Soft tissue swelling with small osseous debris adjacent to the talus possibly reflecting an avulsion injury.
[2023-12-01 17:50] VITALS: BP 151/89; PULSE 91; RESP 18; TEMP 36.6; O2SAT 98; BMI 30.1
--- NOTE | 2023-12-01 18:26 | EXP.UTC ---
Discharge Plan Disposition Patient Disposition: Home, Self-Care Condition: Good Prescriptions Prescriptions: New azithromycin [Zithromax Z-Keith] 250 mg tablet See Rx Instructions .ROUTE .COMPLEX 5 Days Qty: 6 0RF Rx Instructions: For 250 mg dose pack: take 500 mg today (day 1), then 250 mg for 4 days (days 2-5) prednisone 20 mg tablet 20 mg PO BID 5 Days Qty: 10 0RF albuterol sulfate [Proventil HFA] 90 mcg/actuation HFA aerosol inhaler 2 puff inhalation Q4-6H PRN (Reason: shortness of breath or wheezing) Qty: 8.5 0RF No Action furosemide [Lasix] 20 mg tablet 20 mg PO DAILY Qty: 90 3RF dicyclomine 10 mg capsule See Rx Instructions .ROUTE .COMPLEX Qty: 60 0RF Dose Instruction: TAKE 1 CAPSULE(10 MG) BY MOUTH TWICE DAILY FOR IRRITABLE BOWEL SYNDROME Rx Instructions: TAKE 1 CAPSULE(10 MG) BY MOUTH TWICE DAILY FOR IRRITABLE BOWEL SYNDROME gabapentin 300 mg capsule 300 mg PO BID 30 Days Qty: 60 2RF clonazepam 1 mg tablet 0.5 mg PO BID PRN (Reason: mood) Qty: 30 2RF clonidine HCl 0.1 mg tablet 0.1 mg PO BID Qty: 180 0RF Nuedexta 20-10 mg capsule See Rx Instructions .ROUTE .COMPLEX Qty: 180 0RF Rx Instructions: TAKE 1 CAPSULE BY MOUTH EVERY 12 HOURS FOR MOOD escitalopram oxalate [Lexapro] 10 mg tablet 10 mg PO DAILY Qty: 90 2RF trazodone 100 mg tablet See Rx Instructions .ROUTE .COMPLEX Qty: 90 0RF Dose Instruction: TAKE 1 TABLET BY MOUTH EVERY NIGHT AT BEDTIME Rx Instructions: TAKE 1 TABLET BY MOUTH EVERY NIGHT AT BEDTIME omeprazole 20 mg capsule,delayed release(DR/EC) 20 mg PO DAILY Qty: 30 2RF diclofenac sodium [Arthritis Pain (diclofenac)] 1 % gel 2 g topical QID Qty: 100 2RF Rx Instructions: apply to single elbow, wrist or hand; for hand includes palm/fingers/back of hand Tomeka Aerosphere 160-9-4.8 mcg/actuation HFA aerosol inhaler 2 inh inhalation BID 90 Days Qty: 10.7 3RF Jardiance 10 mg tablet 10 mg PO DAILY Qty: 30 2RF albuterol sulfate [Ventolin HFA] 90 mcg/actuation HFA aerosol inhaler See Rx Instructions .ROUTE .COMPLEX Qty: 18 0RF Dose Instruction: INHALE 1 PUFF BY MOUTH EVERY 4 TO 6 HOURS NEEDED FOR SHORTNESS OF BREATH Rx Instructions: INHALE 1 PUFF BY MOUTH EVERY 4 TO 6 HOURS NEEDED FOR SHORTNESS OF BREATH divalproex 500 mg tablet,delayed release (DR/EC) See Rx Instructions .ROUTE .COMPLEX Qty: 90 0RF Dose Instruction: TAKE 1 TABLET BY MOUTH THREE TIMES DAILY FOR SEIZURES Rx Instructions: TAKE 1 TABLET BY MOUTH THREE TIMES DAILY FOR SEIZURES bupropion HCl 300 mg tablet extended release 24 hr See Rx Instructions .ROUTE .COMPLEX Qty: 90 0RF Dose Instruction: TAKE 1 TABLET BY MOUTH ONCE DAILY IN THE MORNING FOR DEPRESSION FOR 90 DAYS Rx Instructions: TAKE 1 TABLET BY MOUTH ONCE DAILY IN THE MORNING FOR DEPRESSION FOR 90 DAYS ipratropium-albuterol 0.5 mg-3 mg(2.5 mg base)/3 mL solution for nebulization 3 ml inhalation QID PRN (Reason: shortness of breath or wheezing) 90 Days Qty: 270 3RF albuterol sulfate 2.5 mg /3 mL (0.083 %) solution for nebulization 2.5 mg inhalation TID PRN (Reason: COPD) Rx Instructions: 2.5 mg inhaled; Referrals Follow up/Referrals: Melyssa Temple APRN [Nurse Practitioner] - See instructions Ector Galindo DO [Primary Care Provider] - See instructions Violeta Mckee DPM [Staff Physician] - See instructions Activity Restrictions/Add. Instructions Additional Instructions/Restrictions: NO weight bearing until seen by Podiatry use your wheel chair to get around *No weight bearing *RICE, Rest the extremity, Ice 15-20 minutes 3-4 times daily, Compress- wear the alvin wrap as discussed as much as possible to help reduce swelling and pain, Elevate the extremity when at rest *Alvin wrap is for support and help control swelling, use it except in the shower. Be sure that is not to tight but not to loose either *Elevate when resting? *Ibuprofen 600-800mg every 6-8 hours as needed for pain an inflammation if you can take it if not or. If need something more can take Tylenol in between doses of Ibuprofen to help Immediately follow up with your family doctor for new or worsening of symptoms, or no noticeable improvement over the next 3-5 days Call Podiatry office tomorrow for appointment Clinical Impressions Clinical Impression: Avulsion fracture, COPD exacerbation Instructions Patient Instructions: DI for Avulsion Fracture, How To Perform RICE (Rest, Ice, Compress, Elevate) Discharge ED Provider: Ileana Marques [facility] [place] HPI General Stated complaint: AO 12/01/23 1200 Injury Left ankle Mode of Arrival: Ambulatory Source of Information: Patient and Relative Limitations: No Limitations Time Seen by Provider: 12/01/23 18:26 Description of Symptoms (Recalled from Triage Doc. by RN): PATIENT C/O PAIN AND SWELLING TO LEFT ANKLE AFTER FALLING TODAY. SHE ALSO REPORTS WEAKNESS, COUGH, AND DECREASED APPETITE HEENT Symptoms (Recalled from RN notes): No Resp Symptoms (Recalled from RN notes): Yes Skin Symptoms (Recalled from RN notes): No MS Symptoms (Recalled from RN notes): Yes Functional Status (Recalled from RN notes): WNL History of Present Illness Provider Complaint: Patient states that she has COPD, states that she has been having cough, decreased appetite and fatigue States earlier today she tripped and fell and hurt her left ankle and now having pain when she tries to walk on it States she is also out of her duo neb Related Data Home Medications Medication Instructions Recorded Confirmed albuterol sulfate 2.5 mg/3 mL 2.5 mg inhalation TID PRN COPD 06/16/22 11/14/23 (0.083 %) solution for nebulization Previous Rx's Medication Instructions Recorded budesonide 160 mcg-glycopyr 9 2 inh inhalation BID 90 days #10.7 10/06/23 mcg-formot 4.8 mcg/actuation HFA grams inhaler (Breztri Aerosphere) furosemide 20 mg tablet (Lasix) 20 mg PO DAILY #90 tabs 10/17/23 empagliflozin 10 mg tablet 10 mg PO DAILY #30 tabs 11/03/23 (Jardiance) Ventolin HFA 90 mcg/actuation See Rx Instructions .Route 11/07/23 aerosol inhaler (albuterol sulfate) .COMPLEX #18 grams bupropion HCl 300 mg 24 hr tablet, See Rx Instructions .Route 11/08/23 extended release .COMPLEX #90 tabs divalproex 500 mg tablet,delayed See Rx Instructions .Route 11/08/23 release .COMPLEX #90 tabs clonazepam 1 mg tablet 0.5 mg (1/2 x 1 mg) PO BID PRN 11/14/23 mood #30 tabs clonidine HCl 0.1 mg tablet 0.1 mg PO BID mood #180 tabs 11/14/23 dextromethorphan 20 mg-quinidine See Rx Instructions .Route 11/14/23 10 mg capsule (Nuedexta) .COMPLEX mood #180 caps diclofenac sodium 1 % topical gel 2 g topical QID #100 grams 11/14/23 (Arthritis Pain (diclofenac)) dicyclomine 10 mg capsule See Rx Instructions .Route 11/14/23 .COMPLEX #60 caps escitalopram oxalate 10 mg tablet 10 mg PO DAILY #90 tabs 11/14/23 (Lexapro) gabapentin 300 mg capsule 300 mg PO BID 30 days #60 caps 11/14/23 omeprazole 20 mg capsule,delayed 20 mg PO DAILY #30 caps 11/14/23 release trazodone 100 mg tablet See Rx Instructions .Route 11/14/23 .COMPLEX #90 tabs ipratropium 0.5 mg-albuterol 3 mg 3 ml inhalation QID PRN shortness 11/30/23 (2.5 mg base)/3 mL nebulization of breath or wheezing 90 days #270 soln mL albuterol sulfate 90 mcg/actuation 2 puff inhalation Q4-6H PRN 12/01/23 aerosol inhaler (Proventil HFA) shortness of breath or wheezing #8.5 grams azithromycin 250 mg tablet See Rx Instructions PO .COMPLEX 5 12/01/23 (Zithromax Z-Keith) days #6 tabs prednisone 20 mg tablet 20 mg PO BID 5 days #10 tabs 12/01/23 Allergies Allergy/AdvReac Type Severity Reaction Status Date / Time banana Allergy Mild Unknown Verified 11/14/23 13:30 [From BANANAS (FOOD/DRUG)] allergy reaction chocolate flavor Allergy Mild UNKNOWN Verified 11/14/23 13:30 [From CHOCOLATE (FOOD/DRUG)] nicotine patch AdvReac Mild itching/mikki Uncoded 11/03/23 10:42 h Worker's Comp Is this a Worker's Comp case?: No PFS PFS Disclaimer: The information contained in this section may have been updated after the patient was seen, as this information can be updated by other users. Medical History (Updated 12/01/23 @ 18:54 by Ileana Marques APRN) Right lower lobe pneumonia Encounter for general medical examination Lower GI bleeding Abnormal laboratory test result Asthma exacerbation in COPD Acute chest wall pain Pneumonia UTI (urinary tract infection) Recurrent pneumonia Acute viral syndrome Abnormal electrocardiogram [ECG] [EKG] Cough Diarrhea REYMUNDO (obstructive sleep apnea) (HFpEF) heart failure with preserved ejection fraction Oxygen dependent Neuropathy Smoking greater than 30 pack years Mediastinal lymphadenopathy Pulmonary embolism Dyspnea on exertion Acute diastolic CHF (congestive heart failure) Pulmonary hypertension Hilar lymphadenopathy Pleural effusion on right Pneumonia Anxiety disorder Seizure disorder Mood disorder Incontinence History of COVID-19 Asthma History of gastroesophageal reflux (GERD) Allergies Depression Anxiety Urinary tract infection Migraine COPD (chronic obstructive pulmonary disease) Hyperlipidemia Hypertension Surgical History History of colonoscopy History of breast biopsy History of hysterectomy History of cholecystectomy Family History Father Lung cancer Sister Ovarian cancer Kidney disease Lung cancer Mother Kidney disease Other Family history of diabetes mellitus type II Family history of hyperlipidemia Family history of hypertension Family history of migraine headaches Family history of myocardial infarction Social History Smoking Status: Current every day smoker tobacco type: cigarettes packs per day: 1 alcohol intake: never counseling provided: none substance use type: denies use current occupational status: disabled Travel in the last 8 weeks: None caregiver/support person: Yes household members: caregiver housing: assisted living facility lives independently: No do you feel safe at home: Yes victim of physical abuse: No victim of emotional abuse: No victim of sexual abuse: No would you like helpful sources: No ROS Obtained: Yes All systems reviewed & no additional complaints except as documented and Yes Systems reviewed as appropriate & no additional complaints except as documented Constitutional Constitutional: Reports system reviewed and no additional complaints, except as documented, Reports as per HPI and Reports fatigue ENT Ears, Nose, Mouth, and Throat: Reports system reviewed and no additional complaints, except as documented, Reports as per HPI, Reports sinus pain and Reports sinus pressure Cardiovascular Cardiovascular: Reports system reviewed and no additional complaints, except as documented and Reports as per HPI Respiratory Respiratory: Reports system reviewed and no additional complaints, except as documented, Reports as per HPI, Reports chest congestion, Reports cough and Denies wheezing Endocrine Endocrine: Reports fatigue Allergic/Immunologic Allergic/Immunologic: Denies wheezing Physical Exam General General appearance: alert and in no apparent distress ENT ENT exam: Present mucous membranes moist Expanded ENT Exam Nose exam: Present sinus tenderness Throat exam: Present other (PND noted) Respiratory Respiratory exam: Present normal lung sounds bilaterally; Absent respiratory distress or wheezes Cardiovascular Cardiovascular exam: Present regular rate, normal rhythm and normal heart sounds Expanded Lower Extremity Exam Left: Ankle exam: Present tenderness and swelling Ankle image: 1. reports tenderness with palpation Neurological Exam Neurological exam: Present alert, oriented X3 and normal gait Medical Decision Making Vlad Inquiry Pt receiving controlled substance: No Vlad was queried for this patient: No Vital Signs: 12/01/23 17:50 Temperature 97.9 F Temperature Source Oral Pulse Rate [Right Brachial] 91 H Respiratory Rate 18 Blood Pressure [Right Arm] 151/89 H Blood Pressure Mean [Right Arm] 109 Blood Pressure Source [Right Arm] Automatic Cuff Blood Pressure Position [Right Arm] Sitting 02 Sat by Pulse Oximetry 98 Oxygen Delivery Method Room Air Orders (Tests/Meds): ORDERS Category Date Time Status XR ankle LT min 3V Stat Exams 12/01/23 17:25 Completed Radiology Data #1: Image(s): Ankle Image Reviewed: Yes I have reviewed radiologist's interpretation IMPRESSION: Soft tissue swelling with small osseous debris adjacent to the talus possibly reflecting an avulsion injury. Medical Decision Narrative: Patient family states that patient has taken azithromycin and prednisone in the past without complications and reactions discussed with pharmacy Patient family states patient has wheelchair and walker at home Discussed use wheel chair to avoid weight bearing on left foot/ankle until seen by podiatry and to call in the morning for appointment Procedures Orthopedic Splinting/Casting Injury #1: Side: left Lower Extremity Injury Location: ankle Lower Extremity Immobilizer: boot orthosis Additional Comments: has wheelchair and walker at home Post Cast/Splinting Neuro Status: intact and no change Post Cast/Splinting Vasc Status: intact and no change
[2023-12-01 18:59] VITALS: BP 151/89; PULSE 91; RESP 18; TEMP 36.6; O2SAT 98
== END 2023-12-01 19:13 | disposition home or self-care (01) ==
PROVIDERS: Emergency Provider Nurse Practitioner; PCP Internal Medicine
DX: S92.152A Displaced avulsion fracture (chip fracture) of left talus, initial encounter for closed fracture (principal); J44.1 Chronic obstructive pulmonary disease with (acute) exacerbation; R53.83 Other fatigue; W01.10XA Fall on same level from slipping, tripping and stumbling with subsequent striking against unspecified object, initial encounter; F17.210 Nicotine dependence, cigarettes, uncomplicated
CPT/HCPCS: 73610; 99212; 99214; G0463

== ENCOUNTER 2023-12-28 15:34 | Outpatient (CLI) | payer MEDICAID, SELFPAY ==
--- NOTE | 2023-12-28 15:40 | XR_ITS ---
FINAL REPORT CLINICAL HISTORY: Ankle pain COMPARISON: None FINDINGS: LEFT ANKLE Three views demonstrate no acute fracture or dislocation. The visualized joint spaces are normally aligned. The ankle mortise is intact. There is a moderate plantar spur. The soft tissues are unremarkable. IMPRESSION: No acute bony abnormality. Reviewed, Interpreted and Dictated by Jc Jackson MD Transcribed by Daxa Valladares Authenticated and [facility]
--- NOTE | 2023-12-28 15:40 | XR_ITS ---
FINAL REPORT CLINICAL HISTORY: Foot pain COMPARISON: None FINDINGS: LEFT FOOT Three views of the left foot demonstrate no acute fracture or dislocation. A healed fracture deformity is noted of the distal fifth metatarsal. There are hammertoe deformities of the second through fifth digits. The soft tissues are unremarkable. IMPRESSION: Chronic changes without acute bony abnormality. Reviewed, Interpreted and Dictated by Jc Jackson MD Transcribed by Daxa Valladares Authenticated and [facility][1]
== END 2023-12-28 23:59 | disposition home or self-care (01) ==
LOC: RAD 15:36
PROVIDERS: PCP Internal Medicine; Visit Provider Nurse Practitioner
DX: M79.672 Pain in left foot (principal); M19.072 Primary osteoarthritis, left ankle and foot; S93.402A Sprain of unspecified ligament of left ankle, initial encounter; S96.912A Strain of unspecified muscle and tendon at ankle and foot level, left foot, initial encounter
CPT/HCPCS: 73610; 73630

== ENCOUNTER 2024-01-06 11:03 | Outpatient (CLI) | payer MEDICAID, SELFPAY ==
[2024-01-06 13:51] LABS: Hemoglobin A1C 4.8 % (4.0-6.0)
== END 2024-01-06 23:59 | disposition home or self-care (01) ==
LOC: LAB.DROPOF 01-09 11:04
PROVIDERS: Visit Provider Family Medicine
DX: R10.30 Lower abdominal pain, unspecified (principal); R31.9 Hematuria, unspecified; R11.2 Nausea with vomiting, unspecified; R30.0 Dysuria; N39.0 Urinary tract infection, site not specified; R59.0 Localized enlarged lymph nodes
CPT/HCPCS: 83036; 87086

== ENCOUNTER 2024-01-06 11:56 | Emergency (ER) | payer MEDICAID, SELFPAY ==
[2024-01-06] VITALS (7 sets, daily range): BP systolic 96–158; BP diastolic 71–87; PULSE 64–77; RESP 14–18; TEMP 36.4–36.6; O2SAT 89–100; BMI 29.2
--- NOTE | 2024-01-06 12:02 | XR_ITS ---
FINAL REPORT CLINICAL HISTORY: soa, hypoxemia COMPARISON: 03/11/2023 FINDINGS: SINGLE-VIEW CHEST There is cardiomegaly. The mediastinum is normal. There is worsening bibasilar atelectasis or pneumonia. Small effusions are identified. There are chronic bilateral proximal humeral fractures. There is no pneumothorax. IMPRESSION: Worsening bibasilar atelectasis or pneumonia with small effusions. Reviewed, Interpreted and Dictated by Tone Hsu III, MD Transcribed by Gracia Dhillon Authenticated and [facility]
[2024-01-06 12:20] LABS: Lactate Venous 1.5 mmol/L (0.4-2.0); VBG Base Excess 9.1 mmol/L (-2.4-2.3); VBG HCO3 34.9 mmol/L (23-30); VBG Oxygen Saturation 54.8 % (50-70); VBG PH 7.34 mmol/L (7.31-7.41); VBG Total CO2 36.9 mmol/L (23-27)
--- NOTE | 2024-01-06 12:20 | ECG_ITS ---
APPROVED REPORT Exam: Resting ECG HR:62 bpm ECG Measurements Heart Rate 62 AXES DE 149 P 54 QRSd 103 QRS 106 QT 399 T 70 QTc 405 Conclusion SINUS RHYTHM RIGHT AXIS DEVIATION Electronically signed by : ANGELINA DICKEY, 01/08/2024 12:27:43
[2024-01-06 12:21] LABS: VBG PCO2 66.3 mmol/L (35-51)
[2024-01-06 12:28] LABS: Alanine Aminotransferase 8 U/L (12-78); Albumin Level 3.4 g/dl (3.5-5.0); Albumin/Globulin Ratio 0.7 (1.1-1.8); Alkaline Phosphatase 117 U/L (38-126); Anion Gap 11.7 mEq/L (5-15); Aspartate Amino Transferase 18 U/L (14-36); Bilirubin,Total 0.4 mg/dl (0.2-1.3); Blood Urea Nitrogen 21 mg/dl (7-17); Calcium 8.6 mg/dl (8.4-10.2); Carbon Dioxide 38 mmol/L (22.0-30.0); Chloride 96 mmol/L (98-107); Creatinine Clearance Estimated 128 mL/min (50-200); Estimated Glomerular Filt Rate 105 ml/min (>60); GFR (African American) 127 ML/MIN (>60); Globulin 4.6 g/dL (1.3-3.2); Glucose 71 mg/dl (74-100); Potassium 4.7 mmoL/L (3.5-5.1); Sodium 141 mmol/L (136-145)
[2024-01-06 12:32] LABS: Basophils % 0.6 % (0.1-2.0); Eosinophils % 0.4 % (0.1-12.0); Hematocrit 37.1 % (37.0-47.0); Hemoglobin 11.1 g/dL (12.2-16.2); Lymphocytes # 1.6 K/mm3 (0.7-4.5); Lymphocytes % 23.1 % (10-50); Mean Corpuscular HGB Conc 29.8 g/dL (31.8-35.4); Mean Corpuscular Hemoglobin 25.1 pg (27.0-31.2); Mean Corpuscular Volume 84.1 fl (81-99); Mean Platelet Volume 8.3 fl (7.4-10.4); Monocytes # 0.6 K/mm3 (0.1-1.0); Monocytes % 9.1 % (1.7-9.3); Neutrophils # 4.7 K/mm3 (1.8-7.8); Neutrophils % 66.8 % (37.0-80.0); Platelet Count 350 K/mm3 (142-424); Red Blood Count 4.41 M/mm3 (4.20-5.40); Red Cell Distribution Width 16.7 % (11.5-17.5)
--- NOTE | 2024-01-06 12:32 | ED_ITS ---
Discharge Plan Disposition Patient Disposition: Home, Self-Care Prescriptions Prescriptions: New amoxicillin-pot clavulanate 875-125 mg tablet 1 tab PO BID 7 Days Qty: 14 0RF azithromycin 500 mg tablet 500 mg PO DAILY 2 Days Qty: 2 0RF Rx Instructions: start on day 2 of therapy prednisone 20 mg tablet 40 mg PO DAILY 5 Days Qty: 10 0RF No Action furosemide [Lasix] 20 mg tablet 20 mg PO DAILY Qty: 90 3RF Jardiance 10 mg tablet 10 mg PO DAILY 90 Days Qty: 90 2RF gabapentin 300 mg capsule 300 mg PO BID 30 Days Qty: 60 2RF clonidine HCl 0.1 mg tablet 0.1 mg PO BID Qty: 180 0RF Nuedexta 20-10 mg capsule See Rx Instructions .ROUTE .COMPLEX Qty: 180 0RF Rx Instructions: TAKE 1 CAPSULE BY MOUTH EVERY 12 HOURS FOR MOOD escitalopram oxalate [Lexapro] 10 mg tablet 10 mg PO DAILY Qty: 90 2RF trazodone 100 mg tablet See Rx Instructions .ROUTE .COMPLEX Qty: 90 0RF Dose Instruction: TAKE 1 TABLET BY MOUTH EVERY NIGHT AT BEDTIME Rx Instructions: TAKE 1 TABLET BY MOUTH EVERY NIGHT AT BEDTIME omeprazole 20 mg capsule,delayed release(DR/EC) 20 mg PO DAILY Qty: 30 2RF diclofenac sodium [Arthritis Pain (diclofenac)] 1 % gel 2 g topical QID Qty: 100 2RF Rx Instructions: apply to single elbow, wrist or hand; for hand includes palm/fingers/back of hand clonazepam 1 mg tablet 0.5 mg PO BID PRN (Reason: mood) Qty: 30 2RF ciprofloxacin HCl [Cipro] 250 mg tablet 250 mg PO BID Qty: 10 0RF ondansetron 4 mg tablet,disintegrating 4 mg PO DAILY PRN (Reason: nausea and vomiting) Qty: 30 0RF albuterol sulfate [Ventolin HFA] 90 mcg/actuation HFA aerosol inhaler See Rx Instructions .ROUTE .COMPLEX Qty: 18 0RF Dose Instruction: INHALE 1 PUFF BY MOUTH EVERY 4 TO 6 HOURS NEEDED FOR SHORTNESS OF BREATH Rx Instructions: INHALE 1 PUFF BY MOUTH EVERY 4 TO 6 HOURS NEEDED FOR SHORTNESS OF BREATH bupropion HCl 300 mg tablet extended release 24 hr See Rx Instructions .ROUTE .COMPLEX Qty: 90 0RF Dose Instruction: TAKE 1 TABLET BY MOUTH ONCE DAILY IN THE MORNING FOR DEPRESSION FOR 90 DAYS Rx Instructions: TAKE 1 TABLET BY MOUTH ONCE DAILY IN THE MORNING FOR DEPRESSION FOR 90 DAYS ipratropium-albuterol 0.5 mg-3 mg(2.5 mg base)/3 mL solution for nebulization 3 ml inhalation QID PRN (Reason: shortness of breath or wheezing) 90 Days Qty: 270 3RF dicyclomine 10 mg capsule See Rx Instructions .ROUTE .COMPLEX Qty: 180 1RF Dose Instruction: TAKE 1 CAPSULE(10 MG) BY MOUTH TWICE DAILY FOR IRRITABLE BOWEL SYNDROME Rx Instructions: TAKE 1 CAPSULE(10 MG) BY MOUTH TWICE DAILY FOR IRRITABLE BOWEL SYNDROME divalproex 500 mg tablet,delayed release (DR/EC) See Rx Instructions .ROUTE .COMPLEX Qty: 90 0RF Dose Instruction: TAKE 1 TABLET BY MOUTH THREE TIMES DAILY FOR SEIZURES Rx Instructions: TAKE 1 TABLET BY MOUTH THREE TIMES DAILY FOR SEIZURES albuterol sulfate 2.5 mg /3 mL (0.083 %) solution for nebulization 2.5 mg inhalation TID PRN (Reason: COPD) Rx Instructions: 2.5 mg inhaled; albuterol sulfate [Proventil HFA] 90 mcg/actuation HFA aerosol inhaler 2 puff inhalation Q4-6H PRN (Reason: shortness of breath or wheezing) Qty: 8.5 0RF Referrals Follow up/Referrals: Ector Galindo DO [Primary Care Provider] - See instructions Activity Restrictions/Add. Instructions Additional Instructions/Restrictions: Call your family doctor to establish care for this visit to the emergency department and schedule follow-up within 48 hours to ensure improvement. If you have any worsening of your condition or any other concerning signs or symptoms, return to the emergency department or your primary care doctor for further evaluation. Prednisone each morning for 5 days. Augmentin twice daily for 7 days. Azithromycin once daily for 2 days. Continue taking fluid pill each day until following up with family doctor next week. Clinical Impressions Clinical Impression: Acute exacerbation of chronic obstructive pulmonary disease, CHF exacerbation, Left lower lobe pneumonia Discharge ED Provider: Adelfo Sexton General Chief Complaint: Shortness of Breath/Dyspnea Stated Complaint: Low O2, blood in urine, Sent from [facility] Time Seen by Provider: 01/06/24 12:06 Mode of Arrival: Wheelchair Source of Information: Patient and Relative Limitations: No Limitations Description of Symptoms (Recalled from ER Triage Doc. by RN): Patient sent here from PCP due to o2 sats 70's on RA. upon arrival to ED patient sats 89% on room air. Patient complains of feeling short of breath but no worse than usual and states she wears o2 at night. Patient reports she has not felt well for the last couple of weeks with blood in urine and ear aches. History of Present Illness HPI narrative: Please note that above description of symptoms, in this electronic medical record under categorization of recalled from ER triage doctor by RN are reflective of an initial nursing assessment, however, is not reflective of my full history and physical exam that was personally taken and clarified. Consequentially, this preceding description of symptoms, which may include the patient's categorized chief complaint in the EMR, do not reflect my personal clinical impression, and the ultimate description of history of present illness and patient stated complaints should be deferred to this section of the note. Unless stated otherwise or congruent with this section of the note, additional signs, symptoms, or incongruence should be interpreted as inaccurate with my clinical impression. Related Data Home Medications Medication Instructions Recorded Confirmed albuterol sulfate 2.5 mg/3 mL 2.5 mg inhalation TID PRN COPD 06/16/22 01/06/24 (0.083 %) solution for nebulization Previous Rx's Medication Instructions Recorded furosemide 20 mg tablet (Lasix) 20 mg PO DAILY #90 tabs 10/17/23 Ventolin HFA 90 mcg/actuation See Rx Instructions .Route 11/07/23 aerosol inhaler (albuterol sulfate) .COMPLEX #18 grams bupropion HCl 300 mg 24 hr tablet, See Rx Instructions .Route 11/08/23 extended release .COMPLEX #90 tabs clonidine HCl 0.1 mg tablet 0.1 mg PO BID mood #180 tabs 11/14/23 dextromethorphan 20 mg-quinidine See Rx Instructions .Route 11/14/23 10 mg capsule (Nuedexta) .COMPLEX mood #180 caps diclofenac sodium 1 % topical gel 2 g topical QID #100 grams 11/14/23 (Arthritis Pain (diclofenac)) escitalopram oxalate 10 mg tablet 10 mg PO DAILY #90 tabs 11/14/23 (Lexapro) gabapentin 300 mg capsule 300 mg PO BID 30 days #60 caps 11/14/23 omeprazole 20 mg capsule,delayed 20 mg PO DAILY #30 caps 11/14/23 release trazodone 100 mg tablet See Rx Instructions .Route 11/14/23 .COMPLEX #90 tabs ipratropium 0.5 mg-albuterol 3 mg 3 ml inhalation QID PRN shortness 11/30/23 (2.5 mg base)/3 mL nebulization of breath or wheezing 90 days #270 soln mL albuterol sulfate 90 mcg/actuation 2 puff inhalation Q4-6H PRN 12/01/23 aerosol inhaler (Proventil HFA) shortness of breath or wheezing #8.5 grams dicyclomine 10 mg capsule See Rx Instructions .Route 12/14/23 .COMPLEX #180 caps divalproex 500 mg tablet,delayed See Rx Instructions .Route 12/19/23 release .COMPLEX #90 tabs empagliflozin 10 mg tablet 10 mg PO DAILY 90 days #90 tabs 12/28/23 (Jardiance) amoxicillin 875 mg-potassium 1 tab PO BID 7 days #14 tabs 01/06/24 clavulanate 125 mg tablet azithromycin 500 mg tablet 500 mg PO DAILY 2 days #2 tabs 01/06/24 ciprofloxacin HCl 250 mg tablet 250 mg PO BID #10 tabs 01/06/24 (Cipro) clonazepam 1 mg tablet 0.5 mg (1/2 x 1 mg) PO BID PRN 01/06/24 mood #30 tabs ondansetron 4 mg disintegrating 4 mg PO DAILY PRN nausea and 01/06/24 tablet vomiting #30 tabs prednisone 20 mg tablet 40 mg (2 x 20 mg) PO DAILY 5 days 01/06/24 #10 tabs Allergies Allergy/AdvReac Type Severity Reaction Status Date / Time banana Allergy Mild Unknown Verified 01/06/24 10:56 [From BANANAS (FOOD/DRUG)] allergy reaction chocolate flavor Allergy Mild UNKNOWN Verified 01/06/24 10:56 [From CHOCOLATE (FOOD/DRUG)] nicotine AdvReac Rash Verified 01/06/24 13:39 [facility] Disclaimer: The information contained in this section may have been updated after the patient was seen, as this information can be updated by other users. Medical History Right lower lobe pneumonia Encounter for general medical examination Lower GI bleeding Abnormal laboratory test result Asthma exacerbation in COPD Acute chest wall pain Pneumonia UTI (urinary tract infection) Recurrent pneumonia Acute viral syndrome Abnormal electrocardiogram [ECG] [EKG] Cough Diarrhea REYMUNDO (obstructive sleep apnea) (HFpEF) heart failure with preserved ejection fraction Oxygen dependent Neuropathy Smoking greater than 30 pack years Mediastinal lymphadenopathy Pulmonary embolism Dyspnea on exertion Acute diastolic CHF (congestive heart failure) Pulmonary hypertension Hilar lymphadenopathy Pleural effusion on right Pneumonia Anxiety disorder Seizure disorder Mood disorder Incontinence INCONTINENCE AT TIMES History of COVID-19 Asthma History of gastroesophageal reflux (GERD) Allergies Depression Anxiety Urinary tract infection Migraine COPD (chronic obstructive pulmonary disease) Hyperlipidemia Hypertension Surgical History History of colonoscopy History of breast biopsy History of hysterectomy History of cholecystectomy Family History Father Lung cancer Sister Ovarian cancer Kidney disease Lung cancer Mother Kidney disease Other Family history of diabetes mellitus type II Family history of hyperlipidemia Family history of hypertension Family history of migraine headaches Family history of myocardial infarction Social History Smoking Status: Current every day smoker tobacco type: cigarettes packs per day: 1 alcohol intake: never counseling provided: none substance use type: denies use current occupational status: disabled Travel in the last 8 weeks: None caregiver/support person: Yes household members: caregiver housing: assisted living facility lives independently: No do you feel safe at home: Yes victim of physical abuse: No victim of emotional abuse: No victim of sexual abuse: No would you like helpful sources: No ROS Obtained: Yes All systems reviewed & no additional complaints except as documented Physical Exam General General appearance: alert, in no apparent distress and other (Chronically ill, nasal cannula in place) Neck Neck exam: Present trachea midline; Absent lymphadenopathy Chest Chest inspection: Present normal inspection and symmetric chest wall rise Respiratory Respiratory exam: Present normal lung sounds bilaterally, wheezes (Bilaterally, left greater than right and anterior/inferior lung morgan) and other (89% on room air. 2 L placed for comfort); Absent respiratory distress, stridor, accessory muscle use or prolonged expiratory phase Cardiovascular Cardiovascular exam: Present regular rate and normal rhythm Abdominal Exam Abdominal exam: Present soft and tenderness; Absent distention Abdominal tenderness: Present suprapubic Extremities Exam Extremities exam: Absent edema Neurological Exam Neurological exam: Present alert, oriented X3 and CN II-XII intact Skin Skin exam: Present warm and dry; Absent cyanosis, diaphoresis or pallor HEART Score HEART Score HEART Score assessment performed?: Yes History (anamnesis): Slightly suspicious ECG: Normal Age: 45-65 years Risk factors: 3 or more risk factors Troponin: </= normal limit HEART Score: 3 Critical Care Critical Care Time Critical Care Time: Yes (CV) Attestation: On 01/06/24, the high probability of a clinically significant, sudden or life threatening deterioration of the following system(s) required my full and direct attention, intervention and personal management. The time I documented below is in addition to time spent performing reported procedures but includes the following listed in this critical care notation. Total Time Total Critical Care Time: 35 Medical Decision Making Medical Records Medical records reviewed: Yes I reviewed the patient's medical records. Vlad Inquiry Pt receiving controlled substance: No Vlad was queried for this patient: No Vital Signs Vital Signs: 01/06/24 11:58 01/06/24 12:04 01/06/24 12:30 Temperature 97.6 F Temperature Source Oral Pulse Rate 72 64 Pulse Rate [Left] 70 Respiratory Rate 18 Blood Pressure 149/78 H 134/74 Blood Pressure [Right Arm] 149/78 H Blood Pressure Mean [Right Arm] 101 Blood Pressure Source [Right Arm] Automatic Cuff 02 Sat by Pulse Oximetry 89 L 96 97 Oxygen Delivery Method Room Air Oxygen Flow Rate (LPM) 01/06/24 12:48 01/06/24 12:48 01/06/24 12:48 Temperature Temperature Source Pulse Rate 77 75 Pulse Rate [Left] Respiratory Rate Blood Pressure Blood Pressure [Right Arm] Blood Pressure Mean [Right Arm] Blood Pressure Source [Right Arm] 02 Sat by Pulse Oximetry 97 Oxygen Delivery Method Nasal Cannula Oxygen Flow Rate (LPM) 2 01/06/24 13:01 01/06/24 13:31 01/06/24 13:56 Temperature 97.8 F Temperature Source Tympanic Pulse Rate 66 71 70 Pulse Rate [Left] Respiratory Rate 14 16 18 Blood Pressure 96/71 L 158/87 H 158/72 H Blood Pressure [Right Arm] Blood Pressure Mean [Right Arm] Blood Pressure Source [Right Arm] 02 Sat by Pulse Oximetry 100 99 Oxygen Delivery Method Room Air Oxygen Flow Rate (LPM) Lab Data Labs: Lab Results 01/06/24 12:04: VBG pH 7.34, VBG pCO2 66.3 H, VBG pO2 29.0, VBG HCO3 34.9 H, VBG Total CO2 36.9 H, VBG O2 Saturation 54.8, VBG Base Excess 9.1 H, VBG Lactic Acid 1.5 01/06/24 12:10: WBC 7.0, RBC 4.41, Hgb 11.1 L, Hct 37.1, MCV 84.1, MCH 25.1 L, M CHC 29.8 L, RDW 16.7, Plt Count 350, MPV 8.3, Neut % (Auto) 66.8, Lymph % (Auto) 23.1, Whitman % (Auto) 9.1, Eos % (Auto) 0.4, Baso % (Auto) 0.6, Neut # (Auto) 4.7, Lymph # (Auto) 1.6, Whitman # (Auto) 0.6, Eos # (Auto) 0.0, Baso # (Auto) 0.0, D- Dimer 0.70 H, Sodium 141, Potassium 4.7, Chloride 96 L, Carbon Dioxide 38 H, Anion Gap 11.7, BUN 21 H, Creatinine 0.60, Estimated Creat Clear 128, Estimated GFR 105, Est GFR ( Amer) 127, Glucose 71 L, Calcium 8.6, Total Bilirubin 0.4, AST 18, ALT 8 L, Alkaline Phosphatase 117, Troponin I < 0.01, NT-Pro-B Natriuret Pep 3850 H, Total Protein 8.0, Albumin 3.4 L, Globulin 4.6 H, A lbumin/Globulin Ratio 0.7 L, Procalcitonin 0.056 01/06/24 12:10 01/06/24 12:10 Response Orders (Tests/Meds): ED MEDICATIONS Discontinued Medications Generic Name Dose Route Start Last Admin Trade Name Freq PRN Reason Stop Dose Admin Albuterol/Ipratropium 9 ml 01/06/24 12:26 01/06/24 12:47 Ipratropium/Albuterol 3 Ml Neb IH 01/06/24 12:27 9 ml ONCE ONE Administration Amoxicillin/Clavulanate Potassium 1 each 01/06/24 13:36 01/06/24 13:50 Amoxicillin/Clavulanate Potassium 875/125mg Tablet PO 01/06/24 13:37 1 each ONCE ONE Administration Azithromycin 500 mg 01/06/24 13:36 01/06/24 13:50 Azithromycin 250mg Tablet PO 01/06/24 13:37 500 mg ONCE ONE Administration Furosemide 60 mg 01/06/24 13:18 01/06/24 13:23 Furosemide 40mg/4ml Vial IV 01/06/24 13:19 60 mg ONCE ONE Administration Methylprednisolone Sodium Succinate 125 mg 01/06/24 12:26 01/06/24 12:46 Methylprednisolone Sod Succ 125mg Vial IV 01/06/24 12:27 125 mg ONCE ONE Administration ORDERS Category Date Time Status XR chest portable Stat Exams 01/06/24 12:02 Taken Complete Blood Count Auto Diff Stat Lab 01/06/24 12:10 Completed Comprehensive Metabolic Panel Stat Lab 01/06/24 12:10 Completed D-Dimer Stat Lab 01/06/24 12:10 Completed NT Pro Brain Natriuretic Pep. Stat Lab 01/06/24 12:10 Completed Procalcitonin Stat Lab 01/06/24 12:10 Completed Troponin I Q3H Lab 01/06/24 15:15 Ordered Troponin I Q3H Lab 01/06/24 18:15 Ordered Troponin I Stat Lab 01/06/24 12:10 Completed Venous Blood Gas Stat RT 01/06/24 12:04 Ordered MDM Narrative Medical Decision Narrative: 53-year-old female, high blood anemia, COPD not on home oxygen (as needed at home), 5R for Lyrica twice daily, tobacco use disorder reporting with multiple concerns. Patient was at her family doctor today for dysuria and vital signs revealed she was 70% on room air. Placed on 3 L nasal cannula and recommend she come to the emergency department. Patient states she has been having pain in her legs, nausea, dysuria, intermittent cough that is nonproductive, and shortness of breath. No chest pain, fevers or chills, syncope, recent sick contacts, or any other concerns. History was obtained via conversation with patient. On arrival, patient hemodynamically stable, alert, oriented x4, appropriate, GCS 15, moving all extremities spontaneously, pupils equal and reactive to light. Full physical exam performed and significant for chronically ill-appearing woman in no acute distress. 89% on room air, 95% with 2 L nasal cannula. Bilateral wheezing, left greater than right. Cardiac exam within normal limits. Abdomen is soft, minimally tender in suprapubic region without rebound, rigidity, or guarding.. Differential includes COPD exacerbation, pneumonia, bronchitis, ACS, IL, PE, pneumothorax, UTI, among others. Patient was given Solu-Medrol and DuoNebs for symptomatic management and correction of underlying abnormalities. Workup independently interpreted and significant for nonactionable CBC or chemistry. VBG largely nonactionable. Troponin negative, BNP significantly elevated. Chest x-ray with left lower lobe opacity obscuring diaphragm as well as bilateral pulmonary vascular congestion concerning for expiratory heart failure and developing left lower lobe pneumonia exacerbating COPD. See radiology read for full review of final results. Independent interpretation of EKG shows sinus rhythm 62 beats a minute. IA 149, QRS 103, QTc [address] or T wave changes concerning for ischemia. [place] rightward. Patient placed on continuous cardiac monitoring and continuous pulse ox with initial blood pressure 149/78, heart rate 70, saturation 89% on room air. Heart score 3. Low risk Wells score, PERC positive for new oxygen requirement (70% at office, although 89% here). D-dimer is years criteria negative. CT PE was considered, but deemed unnecessary due to mildly elevated dimer, negative years criteria. On reevaluation, patient feeling much better. Given 60 mg IV Lasix and azithromycin/Augmentin. Given history and exam as well as workup, this most likely represents COPD exacerbation, pneumonia, CHF exacerbation. Patient has oxygen at home. Conversation was had regarding home-going versus admission, they are comfortable going home and following up outpatient, I feel this is appropriate. Recommended that they take antibiotics, prednisone, furosemide that they have at home until following up next week. Because patient at baseline without signs or symptoms of clinical decompensation, deemed appropriate for discharge. Results were relayed to patient who voiced understanding and were agreeable to outpatient management and follow up. I discussed my clinical impression with patient and answered all questions. At this time, the evidence for any other entities in the differential is insufficient to warrant any further testing or ED observation. This was explained as well. Advisory was given that persistent or worsening symptoms require further evaluation. I confirmed the understanding of this discussion. Farm Equipment Technician disclaimer Much of this encounter note is an electronic commissioned police officer spoken language to printed text. Electronic commissioned police officer of the spoken language may permit errors. Although I have reviewed the note, some errors may still exist.
--- NOTE | 2024-01-06 12:38 | PC.NURSE ---
respiratory aware of duoneb
[2024-01-06 12:42] LABS: NT Pro Brain Natriuretic Pep. 3850 pg/mL (0-125)
[2024-01-06 12:46] LABS: Procalcitonin 0.056 ng/mL (0.0-2.0)
[2024-01-06] MEDS: METHYLPREDNISOLONE SOD SUCC 125MG VIAL 125 MG IV (12:46)
[2024-01-06] MEDS: IPRATROPIUM/ALBUTEROL 3 ML NEB 9 ML IH (12:47)
[2024-01-06 12:54] LABS: Troponin I < 0.01 ng/ml (0.00-0.034)
[2024-01-06] MEDS: FUROSEMIDE 40MG/4ML VIAL 60 MG IV (13:23)
[2024-01-06] MEDS: AMOXICILLIN/CLAVULANATE POTASSIUM 875/125MG TABLET 1 EACH PO (13:50)
[2024-01-06] MEDS: AZITHROMYCIN 250MG TABLET 500 MG PO (13:50)
== END 2024-01-06 14:13 | disposition home or self-care (01) ==
PROVIDERS: Emergency Provider Emergency Medicine; PCP Internal Medicine
DX: J44.1 Chronic obstructive pulmonary disease with (acute) exacerbation (principal); R06.02 Shortness of breath; R06.2 Wheezing; F17.210 Nicotine dependence, cigarettes, uncomplicated; J18.9 Pneumonia, unspecified organism; I11.0 Hypertensive heart disease with heart failure; I50.31 Acute diastolic (congestive) heart failure; Z86.711 Personal history of pulmonary embolism; R10.817 Generalized abdominal tenderness
CPT/HCPCS: 71045; 80053; 82803; 83880; 84145; 84484; 85025; 85378; 93005; 96374; 96375; 99285

== ENCOUNTER 2024-01-17 17:47 | Inpatient (IN) | payer MEDICAID, SELFPAY ==
[2024-01-17] VITALS (7 sets, daily range): BP systolic 102–143; BP diastolic 67–77; PULSE 68–86; RESP 20; TEMP 36.7–36.9; O2SAT 93–100; BMI 25.0
--- NOTE | 2024-01-17 17:59 | XR_ITS ---
PROCEDURE INFORMATION: Exam: XR Chest Exam date and time: 01/17/2024 6:06 PM Age: 53 years old Clinical indication: Injury or trauma; Fall; Blunt trauma (contusions or hematomas); Additional info: AMS TECHNIQUE: Imaging protocol: Radiologic exam of the chest. Views: 1 view. COMPARISON: CR XR CHEST PORTABLE 01/06/2024 12:17 PM FINDINGS: Lungs: Hazy bibasilar opacities. Pleural spaces: Small bilateral pleural effusions. No pneumothorax. Heart/Mediastinum: Cardiomegaly. Bones/joints: Old bilateral proximal humerus fractures. IMPRESSION: 1. Small bilateral pleural effusions. 2. Hazy bibasilar opacities likely representing atelectasis, although infection cannot be excluded.
--- NOTE | 2024-01-17 17:59 | XR_ITS ---
PROCEDURE INFORMATION: Exam: XR Right Hand Exam date and time: 01/17/2024 6:06 PM Age: 53 years old Clinical indication: Injury or trauma; Fall; Blunt trauma (contusions or hematomas); Hand; Right; Additional info: Fall, injury TECHNIQUE: Imaging protocol: Radiologic exam of the right hand. Views: 3 or more views. COMPARISON: CR XR FOREARM RT 2V 01/17/2024 6:06 PM FINDINGS: Bones/joints: No acute fracture or malalignment. Mild radiocarpal and triscaphe joint osteoarthritis. Soft tissues: Normal. IMPRESSION: No acute osseous findings.
--- NOTE | 2024-01-17 17:59 | XR_ITS ---
PROCEDURE INFORMATION: Exam: XR Right Forearm Exam date and time: 01/17/2024 6:06 PM Age: 53 years old Clinical indication: Injury or trauma; Fall; Blunt trauma (contusions or hematomas); Arm, lower; Right; Additional info: Fall, injury TECHNIQUE: Imaging protocol: Radiologic exam of the right forearm. Views: 2 views. COMPARISON: CR XR HAND RT MIN 3V 01/17/2024 6:06 PM FINDINGS: Bones/joints: No acute fracture or malalignment. Soft tissues: Normal. IMPRESSION: No acute osseous findings.
--- NOTE | 2024-01-17 17:59 | XR_ITS ---
PROCEDURE INFORMATION: Exam: XR Left Tibia and Fibula Exam date and time: 01/17/2024 6:06 PM Age: 53 years old Clinical indication: Injury or trauma; Fall; Blunt trauma; Lower leg; Left; Additional info: Fall, injury TECHNIQUE: Imaging protocol: Radiologic exam of the left tibia and fibula. Views: 2 views. COMPARISON: CR XR FOOT LT MIN 3V 01/17/2024 6:06 PM FINDINGS: Bones/joints: No acute fracture or malalignment. Chronic posttraumatic changes of the medial malleolus. Calcaneal enthesopathy. Soft tissues: Normal. IMPRESSION: No acute osseous findings.
--- NOTE | 2024-01-17 17:59 | CT_ITS ---
PROCEDURE INFORMATION: Exam: CT Head Without Contrast Exam date and time: 01/17/2024 6:26 PM Age: 53 years old Clinical indication: Altered mental status/memory loss; Additional info: AMS TECHNIQUE: Imaging protocol: Computed tomography of the head without contrast. Radiation optimization: All CT scans at this facility use at least one of these dose optimization techniques: automated exposure control; mA and/or kV adjustment per patient size (includes targeted exams where dose is matched to clinical indication); or iterative reconstruction. COMPARISON: CT HEAD/BRAIN WO CON 08/30/2021 11:40 AM FINDINGS: Brain: No acute intracranial hemorrhage, midline shift or mass effect. Diffuse brain parenchymal volume loss. Mild hypodensities within the cerebral white matter most consistent with chronic small-vessel ischemic changes. Redemonstration of possible lacunar infarcts involving the bilateral lentiform nuclei. Cerebral ventricles: No ventriculomegaly. Paranasal sinuses: Bubbly opacities and air-fluid levels within the [id number]-right maxillary sinuses suggestive of acute sinusitis. Mild scattered mucosal thickening within left frontal and bilateral ethmoid sinuses. Mastoid air cells: Chronic small left mastoid effusion. Bones: Unremarkable. No acute fracture. Soft tissues: Unremarkable. IMPRESSION: No acute intracranial findings.
--- NOTE | 2024-01-17 17:59 | XR_ITS ---
PROCEDURE INFORMATION: Exam: XR Left Foot Exam date and time: 01/17/2024 6:06 PM Age: 53 years old Clinical indication: Injury or trauma; Fall; Blunt trauma; Foot; Left; Additional info: Fall injury TECHNIQUE: Imaging protocol: Radiologic exam of the left foot. Views: 3 or more views. COMPARISON: CR XR FOOT WT BEARING LT 3V 12/28/2023 3:51 PM FINDINGS: Bones/joints: No acute fracture or malalignment. Old healed distal 5th metatarsal shaft fracture. Calcaneal enthesopathy. Osteopenia. Soft tissues: Normal. IMPRESSION: No acute osseous findings.
--- NOTE | 2024-01-17 18:02 | HMH.EDGENADL ---
Discharge Plan Disposition Patient Disposition: Admitted Clinical Impressions Clinical Impression: Acute hypoxic respiratory failure, Somnolence, Falls frequently, Injury of right forearm, Injury of left lower leg, Declining functional status Discharge ED Provider: Tabby Pittman General Adult HPI General Chief complaint: Weakness Stated complaint: falls Time Seen by Provider: 01/17/24 17:50 History of Present Illness HPI narrative: Patient is a 53-year-old female who is brought in today for increased somnolence. Patient has known chronic cognitive decline and her sister is at the bedside who provides the vast majority of the history. The patient claims that she has been falling and that she has right wrist pain the sister confirms this. Sister states she normally is up able to walk around the house do some activities to care for herself but over the last few days she is been very sleepy having difficulty getting up and when she does get out but she is following regularly. Most recent fall was 3 days ago. Each time that she is following she tells her sister that she has not had any significant injuries. However she is complaining of right wrist and left foot pain. She was here within the last few months for a left foot injury that her sister feels may have been exacerbated with the recent fall. No head injuries that we are aware of. She is not on any anticoagulants or antiplatelet agents. She does have a history of COPD wears 2 L nasal cannula at home they did not have a home pulse ox she has not had increased shortness of breath unsure as to whether or not she has had worsening cough or wheezing. She does have a history of having recurrent pneumonias on chart review. History is limited from the patient given her baseline clinical status though. Related Data Home Medications Medication Instructions Recorded Confirmed albuterol sulfate 2.5 mg/3 mL 2.5 mg inhalation TID PRN COPD 06/16/22 01/06/24 (0.083 %) solution for nebulization Previous Rx's Medication Instructions Recorded furosemide 20 mg tablet (Lasix) 20 mg PO DAILY #90 tabs 10/17/23 Ventolin HFA 90 mcg/actuation See Rx Instructions .Route 11/07/23 aerosol inhaler (albuterol sulfate) .COMPLEX #18 grams bupropion HCl 300 mg 24 hr tablet, See Rx Instructions .Route 11/08/23 extended release .COMPLEX #90 tabs clonidine HCl 0.1 mg tablet 0.1 mg PO BID mood #180 tabs 11/14/23 dextromethorphan 20 mg-quinidine See Rx Instructions .Route 11/14/23 10 mg capsule (Nuedexta) .COMPLEX mood #180 caps diclofenac sodium 1 % topical gel 2 g topical QID #100 grams 11/14/23 (Arthritis Pain (diclofenac)) escitalopram oxalate 10 mg tablet 10 mg PO DAILY #90 tabs 11/14/23 (Lexapro) gabapentin 300 mg capsule 300 mg PO BID 30 days #60 caps 11/14/23 omeprazole 20 mg capsule,delayed 20 mg PO DAILY #30 caps 11/14/23 release ipratropium 0.5 mg-albuterol 3 mg 3 ml inhalation QID PRN shortness 11/30/23 (2.5 mg base)/3 mL nebulization of breath or wheezing 90 days #270 soln mL albuterol sulfate 90 mcg/actuation 2 puff inhalation Q4-6H PRN 12/01/23 aerosol inhaler (Proventil HFA) shortness of breath or wheezing #8.5 grams dicyclomine 10 mg capsule See Rx Instructions .Route 12/14/23 .COMPLEX #180 caps empagliflozin 10 mg tablet 10 mg PO DAILY 90 days #90 tabs 12/28/23 (Jardiance) amoxicillin 875 mg-potassium 1 tab PO BID 7 days #14 tabs 01/06/24 clavulanate 125 mg tablet azithromycin 500 mg tablet 500 mg PO DAILY 2 days #2 tabs 01/06/24 ciprofloxacin HCl 250 mg tablet 250 mg PO BID #10 tabs 01/06/24 (Cipro) clonazepam 1 mg tablet 0.5 mg (1/2 x 1 mg) PO BID PRN 01/06/24 mood #30 tabs ondansetron 4 mg disintegrating 4 mg PO DAILY PRN nausea and 01/06/24 tablet vomiting #30 tabs prednisone 20 mg tablet 40 mg (2 x 20 mg) PO DAILY 5 days 01/06/24 #10 tabs trazodone 100 mg tablet See Rx Instructions .Route 01/13/24 .COMPLEX #90 tabs divalproex 500 mg tablet,delayed See Rx Instructions .Route 01/16/24 release .COMPLEX #90 tabs Allergies Allergy/AdvReac Type Severity Reaction Status Date / Time banana Allergy Mild Unknown Verified 01/06/24 10:56 [From BANANAS (FOOD/DRUG)] allergy reaction chocolate flavor Allergy Mild UNKNOWN Verified 01/06/24 10:56 [From CHOCOLATE (FOOD/DRUG)] nicotine AdvReac Rash Verified 01/06/24 13:39 [facility] Disclaimer: The information contained in this section may have been updated after the patient was seen, as this information can be updated by other users. Medical History Right lower lobe pneumonia Encounter for general medical examination Lower GI bleeding Abnormal laboratory test result Asthma exacerbation in COPD Acute chest wall pain Pneumonia UTI (urinary tract infection) Recurrent pneumonia Acute viral syndrome Abnormal electrocardiogram [ECG] [EKG] Cough Diarrhea REYMUNDO (obstructive sleep apnea) (HFpEF) heart failure with preserved ejection fraction Oxygen dependent Neuropathy Smoking greater than 30 pack years Mediastinal lymphadenopathy Pulmonary embolism Dyspnea on exertion Acute diastolic CHF (congestive heart failure) Pulmonary hypertension Hilar lymphadenopathy Pleural effusion on right Pneumonia Anxiety disorder Seizure disorder Mood disorder Incontinence INCONTINENCE AT TIMES History of COVID-19 Asthma History of gastroesophageal reflux (GERD) Allergies Depression Anxiety Urinary tract infection Migraine COPD (chronic obstructive pulmonary disease) Hyperlipidemia Hypertension Surgical History History of colonoscopy History of breast biopsy History of hysterectomy History of cholecystectomy Family History Father Lung cancer Sister Ovarian cancer Kidney disease Lung cancer Mother Kidney disease Other Family history of diabetes mellitus type II Family history of hyperlipidemia Family history of hypertension Family history of migraine headaches Family history of myocardial infarction Social History Smoking Status: Current every day smoker tobacco type: cigarettes packs per day: 1 alcohol intake: never counseling provided: none substance use type: denies use current occupational status: disabled Travel in the last 8 weeks: None caregiver/support person: Yes household members: caregiver housing: assisted living facility lives independently: No do you feel safe at home: Yes victim of physical abuse: No victim of emotional abuse: No victim of sexual abuse: No would you like helpful sources: No ROS Obtained: Yes All systems reviewed & no additional complaints except as documented Physical Exam General General appearance: alert and in no apparent distress Respiratory Respiratory exam: Present normal lung sounds bilaterally and other (Oxygen saturations in the low 80s on 2 L escalated to 4 L with saturations improving to the low 90s no respiratory distress); Absent respiratory distress Cardiovascular Cardiovascular exam: Present regular rate Abdominal Exam Abdominal exam: Present soft; Absent distention or tenderness Extremities Exam Extremities exam: Present other (No soft tissue deformities however after palpating all long bones she does have tenderness in the left tib-fib region and the right wrist) Neurological Exam Neurological exam: Present alert and oriented X3 Medical Decision Making Vlad Inquiry Pt receiving controlled substance: No Vital Signs: 01/17/24 18:00 01/17/24 18:47 01/17/24 19:02 Temperature 98.4 F Temperature Source Oral Pulse Rate 74 70 Pulse Rate [Left Radial] 86 Respiratory Rate 20 Blood Pressure 113/75 102/77 L Blood Pressure [Right Arm] 143/67 H Blood Pressure Mean 85 Blood Pressure Mean [Right Arm] 92 02 Sat by Pulse Oximetry 99 94 L 93 L Oxygen Delivery Method Nasal Cannula Room Air Oxygen Flow Rate (LPM) 3 01/17/24 19:30 01/17/24 20:00 01/17/24 20:30 Temperature Temperature Source Pulse Rate 70 71 68 Pulse Rate [Left Radial] Respiratory Rate Blood Pressure 115/76 120/68 117/70 Blood Pressure [Right Arm] Blood Pressure Mean 87 85 91 Blood Pressure Mean [Right Arm] 02 Sat by Pulse Oximetry 100 94 L 96 Oxygen Delivery Method Nasal Cannula Nasal Cannula Oxygen Flow Rate (LPM) 4 4 Lab Data Lab results reviewed: Yes I reviewed the patient's lab results. Lab Results 01/17/24 18:46: WBC 7.5, RBC 4.17 L, Hgb 10.4 L, Hct 34.7 L, MCV 83.1, MCH 24.9 L, MCHC 29.9 L, RDW 17.3, Plt Count 239, MPV 8.2, Neut % (Auto) 73.9, Lymph % (Auto) 18.9, [place] % (Auto) 5.9, Eos % (Auto) 0.8, Baso % (Auto) 0.5, Neut # (Auto) 5.5, Lymph # (Auto) 1.4, [place] # (Auto) 0.4, Eos # (Auto) 0.1, Baso # (Auto) 0.0, Sodium 138, Potassium 4.9, Chloride 94 L, Carbon Dioxide 42 H*, Anion Gap 6.9, BUN 27 H, Creatinine 0.60, Estimated Creat Clear 116, Estimated GFR 105, Est GFR ( Amer) 127, Glucose 80, Calcium 7.9 L, Phosphorus 5.0 H, Magnesium 2.0, Total Bilirubin 0.2, AST 25, ALT 6 L, Alkaline Phosphatase 62, Troponin I 0.06 H, Total Protein 6.6, Albumin 3.0 L, Globulin 3.6 H, Albumin/Globulin Ratio 0.8 L, Urine Color Yellow, Urine Appearance Clear, Urine pH 6.0, Ur Specific [place] 1.025, Urine Protein Negative, Urine Glucose (UA) 2+, Urine Ketones Negative, Urine Blood Trace-i, Urine Nitrate Negative, Urine Bilirubin Negative, Urine Urobilinogen 0.2, Ur Leukocyte Esterase Negative, Urine RBC 3-5, Urine WBC Occasional, Ur Squamous Epith Cells 10-20, Urine Bacteria Trace, Urine Yeast 1+ 01/17/24 18:48: VBG pH 7.34, VBG pCO2 70.3 H, VBG pO2 108.2 H, VBG HCO3 36.8 H, VBG Total CO2 39.0 H, VBG O2 Saturation 97.9 H, VBG Base Excess 11.0 H, VBG Lactic Acid 1.3 01/17/24 18:46 01/17/24 18:46 Orders (Tests/Meds): ED MEDICATIONS Discontinued Medications Generic Name Dose Route Start Last Admin Trade Name Freq PRN Reason Stop Dose Admin Lactated Ringer's 1,000 mls @ 999 mls/hr 01/17/24 18:00 01/17/24 18:50 Lactated Ringer's 1000 Ml Bag IV 01/17/24 19:00 999 mls/hr .Q1H1M SHARRI Administration ORDERS Category Date Time Status CT chest wo con Stat Cat Scan 01/17/24 19:[address] head/brain wo con Stat Cat Scan 01/17/24 17:59 Completed Chest XR -- portable [XR chest portable] Stat Exams 01/17/24 17:59 Completed Foot XR left minimum 3 views [XR foot LT min 3V] Stat Exams 01/17/24 17:59 Completed Forearm XR right 2 views [XR forearm RT 2V] Stat Exams 01/17/24 17:59 Completed Hand XR right minimum 3 views [XR hand RT min 3V] Stat Exams 01/17/24 17:59 Completed Tibia/fibula XR left 2 views [XR tibia fibula LT 2V] Exams 01/17/24 17:59 Completed Stat CBC w/Auto Diff [Complete Blood Count Auto Diff] Stat Lab 01/17/24 18:46 Completed CMP [Comprehensive Metabolic Panel] Stat Lab 01/17/24 18:46 Completed Magnesium Stat Lab 01/17/24 18:46 Completed Phosphorous Stat Lab 01/17/24 18:46 Completed Trop I [Troponin I] Stat Lab 01/17/24 18:46 Completed Troponin I Q3H Lab 01/17/24 21:15 Ordered Troponin I Q3H Lab 01/18/24 00:15 Ordered UA [Urinalysis and Microscopic] Stat Lab 01/17/24 18:46 Completed Venous Blood Gas Stat RT 01/17/24 18:48 Completed Medical Decision Narrative: 53-year-old presenting today with increased somnolence and increased and frequent falls according to her sister. She is cognitively delayed at baseline and history is difficult to be ascertained from the patient. She has a nonfocal neurologic exam does have a GCS of 15 but is confused she is disoriented to place and time which her sister states is her baseline. She has a normal level of alertness on my exam does not appear somnolent. Her differential is broad including infection such as urinary tract infection pneumonia head injuries and intracranial hemorrhage metabolic abnormalities etc. will reassess after this initial workup is complete. 8:58 PM reassessment. Patient's troponin very mildly elevated patient has no signs or symptoms of ischemia this is just above upper limit of normal she has worsening hypoxic respiratory failure likely myocardial injury secondary to that but will need to be trended. No indication for any emergent cardiac intervention at the moment. I am not diagnosing her with an NSTEMI at this moment presumed myocardial injury secondary to hypoxemia. Patient is on 5 L and stable she has oxygen at home but this is an increasing oxygen requirement. After discussing further with her family they state that she has been having chronic aspiration events likely the cause of some of her hypoxia in the setting of COPD as well. Chest x-ray showed some interstitial infiltrates and right-sided small pleural effusion which was consistent may be a little bit worse with old chest x-rays therefore I got a CT noncontrasted to further evaluate her lung parenchyma. She has a small pleural effusion and what is likely atelectasis but no definitive worsening consolidation or pneumonia. Will not treat with antibiotics at the moment no leukocytosis fever or other signs or symptoms of sepsis. CT scan of patient's head performed to person interpreted which shows no acute abnormality. Urinalysis and other metabolic testing are unremarkable. Overall she will be admitted for hypoxic respiratory failure mild myocardial injury but more importantly family states that they cannot care for her any further her sister is at the bedside states that she is been caring for her for 3 years but it is getting increasingly more difficult and she would like to have her evaluated for placement. Patient was admitted after discussing the case with Dr. Ortega who is on-call for Dr. Ling. Critical Care Critical Care Time Critical Care Time: Yes Attestation: On 01/17/24, the high probability of a clinically significant, sudden or life threatening deterioration of the following system(s) required my full and direct attention, intervention and personal management. The time I documented below is in addition to time spent performing reported procedures but includes the following listed in this critical care notation. Total Time Total Critical Care Time: 35
--- NOTE | 2024-01-17 18:11 | PC.NURSE ---
RAD at BS
--- NOTE | 2024-01-17 18:15 | PC.NURSE ---
PT in CT
--- NOTE | 2024-01-17 18:32 | PC.NURSE ---
PT back from CT
[2024-01-17] MEDS: LACTATED RINGERS 1000ML 1,000 ML 999 ML IV (18:50)
--- NOTE | 2024-01-17 18:51 | ECG_ITS ---
APPROVED REPORT Exam: Resting ECG HR:71 bpm ECG Measurements Heart Rate 71 AXES SD 129 P 36 QRSd 109 QRS 107 QT 392 T 62 QTc 415 Conclusion SINUS RHYTHM RIGHT AXIS DEVIATION [QRS AXIS > 100] NONSPECIFIC T-WAVE ABNORMALITY ABNORMAL ECG UNCONFIRMED REPORT Electronically signed by : Dickson Pittman, 01/17/2024 22:53:07
[2024-01-17 18:54] LABS: Microscopic, Urine URINE MICROSCOPIC (MICROSCOPIC)
[2024-01-17 18:57] LABS: Basophils % 0.5 % (0.1-2.0); Eosinophils # 0.1 K/mm3 (0.0-0.4); Eosinophils % 0.8 % (0.1-12.0); Hematocrit 34.7 % (37.0-47.0); Hemoglobin 10.4 g/dL (12.2-16.2); Lymphocytes # 1.4 K/mm3 (0.7-4.5); Lymphocytes % 18.9 % (10-50); Mean Corpuscular HGB Conc 29.9 g/dL (31.8-35.4); Mean Corpuscular Hemoglobin 24.9 pg (27.0-31.2); Mean Corpuscular Volume 83.1 fl (81-99); Mean Platelet Volume 8.2 fl (7.4-10.4); Monocytes # 0.4 K/mm3 (0.1-1.0); Monocytes % 5.9 % (1.7-9.3); Neutrophils # 5.5 K/mm3 (1.8-7.8); Neutrophils % 73.9 % (37.0-80.0); Platelet Count 239 K/mm3 (142-424); Red Blood Count 4.17 M/mm3 (4.20-5.40); Red Cell Distribution Width 17.3 % (11.5-17.5); White Blood Count 7.5 K/mm3 (4.8-10.8)
[2024-01-17 18:58] LABS: Lactate Venous 1.3 mmol/L (0.4-2.0); VBG HCO3 36.8 mmol/L (23-30); VBG Oxygen Saturation 97.9 % (50-70); VBG PH 7.34 mmol/L (7.31-7.41); VBG PO2 108.2 mmol/L (28-40)
[2024-01-17 18:59] LABS: VBG PCO2 70.3 mmol/L (35-51)
[2024-01-17 19:05] LABS: Appearance,Urine CLEAR (Clear); Bilirubin,Urine Negative (Negative); Blood, Urine TRACE-I (Negative); Color,Urine YELLOW (Yellow); Glucose,Urine (UA) 2+ (Negative); Ketones,Urine Negative (Negative); Leukocyte Esterase,Urine Negative (Negative); Nitrate,Urine Negative (Negative); Protein,Urine Negative (Negative); Specific Gravity, Urine 1.025 (1.005-1.030); Urobilinogen,Urine 0.2 EU/dl (0.2)
[2024-01-17 19:08] LABS: Chloride 94 mmol/L (98-107); Potassium 4.9 mmoL/L (3.5-5.1); Sodium 138 mmol/L (136-145)
[2024-01-17 19:10] LABS: Alanine Aminotransferase 6 U/L (12-78); Aspartate Amino Transferase 25 U/L (14-36); Blood Urea Nitrogen 27 mg/dl (7-17); Creatinine Clearance Estimated 116 mL/min (50-200); Estimated Glomerular Filt Rate 105 ml/min (>60); GFR (African American) 127 ML/MIN (>60)
[2024-01-17 19:11] LABS: Albumin/Globulin Ratio 0.8 (1.1-1.8); Alkaline Phosphatase 62 U/L (38-126); Bilirubin,Total 0.2 mg/dl (0.2-1.3); Calcium 7.9 mg/dl (8.4-10.2); Globulin 3.6 g/dL (1.3-3.2); Glucose 80 mg/dl (74-100); Total Protein,Serum 6.6 g/dl (6.3-8.2)
[2024-01-17 19:23] LABS: Troponin I 0.06 ng/ml (0.00-0.034)
[2024-01-17 19:29] LABS: Anion Gap 6.9 mEq/L (5-15); Bacteria,Urine Trace /lpf; Carbon Dioxide 42 mmol/L (22.0-30.0); WBC,Urine Occasional #/hpf (0-3); Yeast,Urine 1+ /lpf
--- NOTE | 2024-01-17 19:30 | CT_ITS ---
PROCEDURE INFORMATION: Exam: CT Chest Without Contrast; Diagnostic Exam date and time: 01/17/2024 7:43 PM Age: 53 years old Clinical indication: Abnormal findings; Abnormal radiologic exam of lung or chest; Additional info: F/u abnormal cxr TECHNIQUE: Imaging protocol: Diagnostic computed tomography of the chest without contrast. Radiation optimization: All CT scans at this facility use at least one of these dose optimization techniques: automated exposure control; mA and/or kV adjustment per patient size (includes targeted exams where dose is matched to clinical indication); or iterative reconstruction. COMPARISON: CT CHEST WO CON 09/23/2023 2:00 PM FINDINGS: Lungs: Emphysema. Probable round atelectasis within the right middle lobe bilateral lower lobes and inferior lingula. No masses. Stable calcified granulomas. Pleural spaces: Few right lower chest pleural calcifications. No pneumothorax. Small bilateral pleural effusions. Heart: Cardiomegaly. Minimal pericardial effusion. Mitral valvular calcifications. Coronary arteries: Mild coronary artery calcifications. Lymph nodes: Calcified mediastinal and bilateral hilar lymph nodes. Vasculature: Mild atherosclerosis. No aortic aneurysm. Stable dilated pulmonary trunk measuring 3.6 cm in caliber. Liver: Hepatomegaly. Calcified granulomas. Spleen: Calcified granulomas. Bones/joints: Degenerative changes. No acute fracture. Chronic posttraumatic changes of the bilateral proximal humeri. Soft tissues: Unremarkable. IMPRESSION: 1. Small bilateral pleural effusions. 2. Probable round atelectasis within the right middle lobe bilateral lower lobes and inferior lingula. Background emphysematous and granulomatous changes. COMMENTS: The presence of pulmonary emphysema on CT is an independent risk factor for lung cancer. In the absence of a history or active diagnosis of lung cancer, it is recommended that this patient with emphysema be evaluated for enrollment in a low dose CT lung cancer screening program.
--- NOTE | 2024-01-17 20:06 | PC.NURSE ---
Patient's family not currently at bedside. Patient calling out for her family. This RN to bedside to provide verbal comfort to patient. Patient is tearful at this time thinking that her family has left her. Patient has self removed nasal cannula at this time, placed back on patient. Patient had self-removed blood pressure cuff, placed back on patient. Verfied PIVL patency. Informed patient that I would round more frequently while patient's family is away.
--- NOTE | 2024-01-17 20:39 | PC.NURSE ---
contacted [facility] for bed assignment. spoke with kylie palacios. dx: hypoxic resp fx. cash.
--- NOTE | 2024-01-17 20:53 | PC.NURSE ---
Attempted report, no answer.
--- NOTE | 2024-01-17 21:02 | PC.NURSE ---
Nurse to nurse report to Liliana BRAVO at this time. Patient transported to floor via stretcher.
--- NOTE | 2024-01-17 21:42 | PC.NURSE ---
Upon family arriving to the floor is was discovered that the patient hasn't seen Sushil in office yet (looks like there is a future apt) - mentioned to family that may arise an issue in AM since Sushil hasn't never seen patient. [facility] was notified. [facility] accepted patient from ED and current plan is to reach out to [place] for the night for orders and concerns. Issue can be clarified in the morning during transitional rounds. Patient is A&O to self and when asking - she stated ask my sister and unable to answer other questions. Patient seems guarded and fearful, she doesn't want to be left alone. Family left for the night after patient arrived to floor. Patient has a reddened area on coccyx, scab to right leg, and excoriation under left belly fold. Patient frequently falls. Family is requesting case management help to DC patient to SNF vs. going back home. Sister, Anita stated to not mention this to the patient at this time. Spoke with DR. Kaufman at 2200 for orders - CM for placement, cardiac diet, holding home medications at this time because patient is unable to tell me what she takes at night, tylenol Q6H PRN, and tums.
[2024-01-17 22:27] LABS: Troponin I 0.08 ng/ml (0.00-0.034)
[2024-01-18] VITALS (23 sets, daily range): BP systolic 115–164; BP diastolic 54–89; PULSE 63–85; RESP 13–26; TEMP 36.5–37.2; O2SAT 90–98; BMI 27.1
[2024-01-18 01:26] LABS: Troponin I 0.08 ng/ml (0.00-0.034)
[2024-01-18] MEDS: FUROSEMIDE 40MG/4ML VIAL 40 MG IV ×2 (03:25→12:40)
--- NOTE | 2024-01-18 03:26 | PC.NURSE ---
[id number] : patient oxygen sat unable to rebound >90 after switching to mask by RT. VBG shows CO2 in 70's. Contacted [employer] Dr. Kaufman - ordered IV Lasix, duonebs Q4H, and BIPAP - Patient transferred to [place] r/t BIPAP requirements at this time. Patient is alert to self (baseline). Moved to room 205 to 218.
[2024-01-18] MEDS: IPRATROPIUM/ALBUTEROL 3 ML NEB IH ×6 (06:19→22:18)
--- NOTE | 2024-01-18 08:16 | HMH.PHAINT1 ---
Pharmacy Intervention Comments: HOME MEDICATION LIST VERIFIED USING LIST FROM [facility]PATIENT [facility] OFFICE
[2024-01-18 09:01] LABS: ABG Base Excess 17.6 mmol/L (-2.4-2.3); ABG HCO3 44.6 mmhg (22.0-26.0); ABG Oxygen Saturation 97 % (90-100); ABG PH 7.27 mmol/L (7.35-7.45); ABG PO2 105.8 mmhg (80-100); ABG TCO2 47.6 mmhg (23-27)
--- NOTE | 2024-01-18 09:10 | EXP.HP ---
History of Present Illness *Admission Date: 01/18/24 *Reason for visit:: shortness of breath *History of present illness: Ms. Sy is a 53-year-old female with intellectual disability, seizure disorder, polypharmacy, chronic respiratory failure, chronic diastolic heart failure. Presented to the ER because of progressing decline. Increased somnolence over the past 1 to 2 days. Patient more weak and unable to participate in ADLs. Lives with her sister who helps care for her. Provided majority of history. Sister reports patient has been falling frequently. She has been able to walk consistently necessitating 1-2 people to help her get around. Denies any fever, chest pain, nausea or vomiting. Most recent fall was 3 days ago. Imaging in the ER showed no acute fractures. Was found to be more short of breath and had increased oxygen requirement in the ER. VBG showed compensated respiratory acidosis with pCO2 greater than 70. On-call primary care service initially consulted for admission and accepted patient. Patient was initiated on BiPAP overnight due to concern for increased respiratory distress and worsening confusion. No further interventions. No antibiotics due to low concern for pneumonia. Patient necessitating evaluation for possible placement and treatment for her heart failure and respiratory failure. On my evaluation this morning, patient was frankly altered and agitated. Awake and alert but not oriented to self or place. Showed worsening blood gas on initial evaluation. Unable to give any additional history. [facility] Disclaimer: The information contained in this section may have been updated after the patient was seen, as this information can be updated by other users. Medical History Right lower lobe pneumonia Encounter for general medical examination Lower GI bleeding Abnormal laboratory test result Asthma exacerbation in COPD Acute chest wall pain Pneumonia UTI (urinary tract infection) Recurrent pneumonia Acute viral syndrome Abnormal electrocardiogram [ECG] [EKG] Cough Diarrhea REYMUNDO (obstructive sleep apnea) (HFpEF) heart failure with preserved ejection fraction Oxygen dependent Neuropathy Smoking greater than 30 pack years Mediastinal lymphadenopathy Pulmonary embolism Dyspnea on exertion Acute diastolic CHF (congestive heart failure) Pulmonary hypertension Hilar lymphadenopathy Pleural effusion on right Pneumonia Anxiety disorder Seizure disorder Mood disorder Incontinence History of COVID-19 Asthma History of gastroesophageal reflux (GERD) Allergies Depression Anxiety Urinary tract infection Migraine COPD (chronic obstructive pulmonary disease) Hyperlipidemia Hypertension Surgical History History of colonoscopy History of breast biopsy History of hysterectomy History of cholecystectomy Family History Ovarian cancer Sister Kidney disease Sister Mother Family history of hypertension Family history of diabetes mellitus type II Family history of migraine headaches Family history of myocardial infarction Lung cancer Father Sister Family history of hyperlipidemia Social History Smoking Status: Current every day smoker tobacco type: cigarettes packs per day: 1 alcohol intake: never counseling provided: none substance use type: denies use current occupational status: disabled Travel in the last 8 weeks: None caregiver/support person: Yes household members: caregiver housing: assisted living facility lives independently: No do you feel safe at home: Yes victim of physical abuse: No victim of emotional abuse: No victim of sexual abuse: No would you like helpful sources: No Review of Systems Review of Systems Review of systems (narrative): 14 point review of systems performed, pertinent positives and negatives as per [facility] Meds Home Medications and Allergies Home Medications Medication Instructions Recorded Confirmed Type furosemide 20 mg tablet (Lasix) 20 mg PO DAILY #90 tabs 10/17/23 01/17/24 Rx Ventolin HFA 90 mcg/actuation See Rx Instructions .Route 11/07/23 01/17/24 Rx aerosol inhaler (albuterol sulfate) .COMPLEX #18 grams clonidine HCl 0.1 mg tablet 0.1 mg PO BID mood #180 tabs 11/14/23 01/17/24 Rx diclofenac sodium 1 % topical gel 2 g topical QID #100 grams 11/14/23 01/17/24 Rx (Arthritis Pain (diclofenac)) escitalopram oxalate 10 mg tablet 10 mg PO DAILY #90 tabs 11/14/23 01/17/24 Rx (Lexapro) gabapentin 300 mg capsule 300 mg PO BID 30 days #60 caps 11/14/23 01/17/24 Rx omeprazole 20 mg capsule,delayed 20 mg PO DAILY #30 caps 11/14/23 01/17/24 Rx release ipratropium 0.5 mg-albuterol 3 mg 3 ml inhalation QID PRN shortness 11/30/23 01/17/24 Rx (2.5 mg base)/3 mL nebulization of breath or wheezing 90 days #270 soln mL albuterol sulfate 90 mcg/actuation 2 puff inhalation Q4-6H PRN 12/01/23 01/17/24 Rx aerosol inhaler (Proventil HFA) shortness of breath or wheezing #8.5 grams empagliflozin 10 mg tablet 10 mg PO DAILY 90 days #90 tabs 12/28/23 01/17/24 Rx (Jardiance) ondansetron 4 mg disintegrating 4 mg PO DAILY PRN nausea and 01/06/24 01/17/24 Rx tablet vomiting #30 tabs bupropion HCl 300 mg 24 hr tablet, 300 mg PO DAILY 01/18/24 01/18/24 History extended release clonazepam 1 mg tablet 0.5 mg PO BIDP PRN Anxiety 01/18/24 01/18/24 History dextromethorphan 20 mg-quinidine 1 cap PO BID 01/18/24 01/18/24 History 10 mg capsule (Nuedexta) divalproex 500 mg tablet,delayed 500 mg PO TID 01/18/24 01/18/24 History release trazodone 100 mg tablet 100 mg PO HS 01/18/24 01/18/24 History New Prescriptions to Start Prescriptions: Allergies Allergy/AdvReac Type Severity Reaction Status Date / Time nicotine AdvReac Rash Verified 01/06/24 13:39 Exam Data for Last 24 hours Vital signs and Labs for Last 24 Hours: Temp Pulse Resp BP Pulse Ox O2 Del Method O2 Flow Rate 98.1 F 76 17 135/81 93 L Nasal Cannula 3 01/18/24 16:00 01/18/24 18:25 01/18/24 16:00 01/18/24 16:00 01/18/24 18:28 01/18/24 18:36 01/18/24 18:36 FiO2 30 01/18/24 10:55 Laboratory Results - last 24 hr 01/17/24 18:46: WBC 7.5, RBC 4.17 L, Hgb 10.4 L, Hct 34.7 L, MCV 83.1, MCH 24.9 L, MCHC 29.9 L, RDW 17.3, Plt Count 239, MPV 8.2, Neut % (Auto) 73.9, Lymph % (Auto) 18.9, [place] % (Auto) 5.9, Eos % (Auto) 0.8, Baso % (Auto) 0.5, Neut # (Auto) 5.5, Lymph # (Auto) 1.4, [place] # (Auto) 0.4, Eos # (Auto) 0.1, Baso # (Auto) 0.0, Sodium 138, Potassium 4.9, Chloride 94 L, Carbon Dioxide 42 H*, Anion Gap 6.9, BUN 27 H, Creatinine 0.60, Estimated Creat Clear 116, Estimated GFR 105, Est GFR ( Amer) 127, Glucose 80, Calcium 7.9 L, Phosphorus 5.0 H, Magnesium 2.0, Total Bilirubin 0.2, AST 25, ALT 6 L, Alkaline Phosphatase 62, Troponin I 0.06 H, Total Protein 6.6, Albumin 3.0 L, Globulin 3.6 H, Albumin/Globulin Ratio 0.8 L, Urine Color Yellow, Urine Appearance Clear, Urine pH 6.0, Ur Specific [place] 1.025, Urine Protein Negative, Urine Glucose (UA) 2+, Urine Ketones Negative, Urine Blood Trace-i, Urine Nitrate Negative, Urine Bilirubin Negative, Urine Urobilinogen 0.2, Ur Leukocyte Esterase Negative, Urine RBC 3-5, Urine WBC Occasional, Ur Squamous Epith Cells 10-20, Urine Bacteria Trace, Urine Yeast 1+ 01/17/24 18:48: VBG pH 7.34, VBG pCO2 70.3 H, VBG pO2 108.2 H, VBG HCO3 36.8 H, VBG Total CO2 39.0 H, VBG O2 Saturation 97.9 H, VBG Base Excess 11.0 H, VBG Lactic Acid 1.3 01/17/24 21:48: Troponin I 0.08 H 01/18/24 00:12: Troponin I 0.08 H, NT-Pro-B Natriuret Pep 4100 H 01/18/24 08:45: Specimen Source Right radial, O2 % 50, ABG pH 7.27 L, ABG pCO2 100.2 H, ABG pO2 105.8 H, ABG HCO3 44.6 H, ABG Total CO2 47.6 H, ABG O2 Saturation 97, ABG Base Excess 17.6 H, Bowen Test Acceptable, Vent Rate 16, PEEP Bipap 20/10 01/18/24 13:00: VBG pH 7.36, VBG pCO2 78.4 H, VBG pO2 49.9 H, VBG HCO3 43.0 H, VBG Total CO2 45.4 H, VBG O2 Saturation 85.1 H, VBG Base Excess 17.5 H, VBG Lactic Acid 1.5 I & O for Last 24 hours: Intake & Output 01/15/24 01/16/24 01/17/24 01/18/24 23:59 23:59 23:59 23:59 Intake Total 580 / 580 Output Total 1700 / 1700 Balance -1120 / -1120 Weight 68.039 kg 73.8 kg Constitutional Constitutional: moderate distress, average body habitus, chronically ill appearing and somnolent *Routine HEENT Exam Head: Present normocephalic Eye: Present EOMI ENT: Present mucous membranes dry *Routine Neck Exam Neck: Present full ROM *Routine Respiratory Exam Respiratory: Present prolonged expiratory phase, wheezes and diminished air movement; Absent rhonchi or crackles *Routine Cardiovascular Exam Cardiovascular: Present RRR *Routine Abdominal Exam Abdominal: Present soft and normoactive bowel sounds *Routine Rectal Exam Rectal:: deferred *Routine Genitalia Exam Genitalia:: deferred *Routine Skin Exam Skin: Present intact; Absent cyanosis or erythema *Routine Neurological Exam Neurological: Present alert, altered mental status and moving all extremities; Absent oriented X3 Assessment and Plan *Assessment and plan (1) Acute hypoxic on chronic hypercapnic respiratory failure: Status: Acute Category: Medical Code(s): J96.01 - Acute respiratory failure with hypoxia; J96.12 - Chronic respiratory failure with hypercapnia (2) (HFpEF) heart failure with preserved ejection fraction: Status: Acute Qualifiers: Heart failure chronicity: unspecified Qualified Code(s): I50.30 - Unspecified diastolic (congestive) heart failure Category: Medical Code(s): I50.30 - Unspecified diastolic (congestive) heart failure (3) Chronic anemia: Status: Acute Category: Medical Code(s): D64.9 - Anemia, unspecified (4) Emphysema lung: Status: Acute Qualifiers: Emphysema type: panlobular Qualified Code(s): J43.1 - Panlobular emphysema Category: Medical Code(s): J43.9 - Emphysema, unspecified (5) Cor pulmonale: Status: Acute Category: Medical Code(s): I27.81 - Cor pulmonale (chronic) (6) Declining functional status: Status: Acute Category: Medical Code(s): R53.81 - Other malaise (7) REYMUNDO (obstructive sleep apnea): Status: Suspected Category: Medical Code(s): G47.33 - Obstructive sleep apnea (adult) (pediatric) (8) Seizure disorder: Status: Acute Category: Medical Code(s): G40.909 - Epilepsy, unspecified, not intractable, without status epilepticus (9) Intellectual disability with epilepsy: Status: Acute Category: Medical Code(s): F79 - Unspecified intellectual disabilities; G40.909 - Epilepsy, unspecified, not intractable, without status epilepticus Plan 53-year-old female with extensive smoking history, emphysema, REYMUNDO, presented to the ER with worsening confusion and respiratory failure. Initially admitted to on-call primary care service for respiratory failure. Transition to hospitalist service this morning. I agreed to admit her to our service and take over care. Discussed case with pulmonology this morning after consulting them for assistance with BiPAP and respiratory failure management. Patient found to have hypercapnic respiratory failure acute on chronic combined with acute on chronic heart failure preserved ejection fraction. Altered mentation initially on morning rounds. Showed improvement with adjustments to BiPAP. Necessitating inpatient care. High risk for decompensation. Problems addressed as follows: Acute on chronic hypercapnic and hypoxic respiratory failure -Blood gas compensated on presentation with pH of 7.36 with pCO2 of 76. Placed on BiPAP due to discomfort overnight. Repeat blood gas this morning showed worsening respiratory failure with acidosis of pH 7.2 and pCO2 of 100 on ABG. Pulmonology consulted, adjustments made. Showed improvement on repeat VBG. Mentation improved. -Supplemental oxygen as needed for goal sats greater than 90%. Currently on 2 to 3 L. Wears 2 to 3 L continuously -Monitor off of BiPAP, if needs to resume, tolerated settings of 03/22 with rate of 22 and FiO2 of 30%. -DuoNebs every 4 hours scheduled and Pulmicort every 12 hours scheduled -Methylprednisolone 60 mg IV daily -White cell count normal on presentation at 7.5, no indication of pneumonia. Chest imaging with no consolidation or airspace disease. Suspect polypharmacy and oversedation complicating her respiratory failure along with component of heart failure. -Holding on antibiotics at this time -I have ordered repeat CBC, CMP, magnesium for the morning Acute on chronic heart failure with preserved ejection fraction -BNP elevated at 4000 -Cardiology consulted, appreciate their assistance in care. Echo in September with EF preserved and RVSP greater than 60 -Continue diuresis, Bumex 1 mg p.o. this morning. Will continue Bumex 1 mg daily along with spironolactone 25 mg daily. -Was monitoring electrolytes and kidney function with diuresis. BUN 27, creatinine 0.6 on admission. -Good response with urine output, negative fluid status today. Seizure disorder: Continue divalproex 500 mg 3 times a day Continue Wellbutrin 300 mg daily for mood disorder Continue Klonopin 0.5 mg twice daily as needed, caution in the setting of possible oversedation Continue Lexapro 10 mg daily for mood Holding gabapentin 300 mg at this time due to the risk for oversedation; Holding trazodone nightly for same reason Polypharmacy at home, high risk for medication side effects Therapy evaluating patient, may necessitate placement. Full code Prophylactic Lovenox Regular diet
[2024-01-18 09:38] LABS: Oxygen 50 %
[2024-01-18 09:39] LABS: ABG PCO2 100.2 mmhg (35.0-45.0); Allen's Test ACCEPTABLE; PEEP BIPAP 20/10; Source Right Radial; Vent Rate 16
--- NOTE | 2024-01-18 09:55 | CARE MANAGER ---
Received consult for care management for possible placement. Patient is currently on BIPAP and unable to participate with therapy. Will address once more medically stable. LAWRENCE Santiago
--- NOTE | 2024-01-18 10:02 | P.CONS_ITS ---
History of Present Illness History of present illness: Ms. Ardon is a 53-year-old female greater than [id number] smoking history emphysema recently generously inhaler workup no symptoms or respiratory distress, bilateral pleural effusions, multiple admissions for hypercarbic respiratory failure presented to the ER with worsening respiratory's hypercarbic respiratory failure needing noninvasive ventilator therapy and pulmonary was called for further evaluation and management. [facility] Disclaimer: The information contained in this section may have been updated after the patient was seen, as this information can be updated by other users. Medical History Right lower lobe pneumonia Encounter for general medical examination Lower GI bleeding Abnormal laboratory test result Asthma exacerbation in COPD Acute chest wall pain Pneumonia UTI (urinary tract infection) Recurrent pneumonia Acute viral syndrome Abnormal electrocardiogram [ECG] [EKG] Cough Diarrhea REYMUNDO (obstructive sleep apnea) (HFpEF) heart failure with preserved ejection fraction Oxygen dependent Neuropathy Smoking greater than 30 pack years Mediastinal lymphadenopathy Pulmonary embolism Dyspnea on exertion Acute diastolic CHF (congestive heart failure) Pulmonary hypertension Hilar lymphadenopathy Pleural effusion on right Pneumonia Anxiety disorder Seizure disorder Mood disorder Incontinence INCONTINENCE AT TIMES History of COVID-19 Asthma History of gastroesophageal reflux (GERD) Allergies Depression Anxiety Urinary tract infection Migraine COPD (chronic obstructive pulmonary disease) Hyperlipidemia Hypertension Surgical History History of colonoscopy History of breast biopsy History of hysterectomy History of cholecystectomy Family History Father Lung cancer Sister Ovarian cancer Kidney disease Lung cancer Mother Kidney disease Other Family history of diabetes mellitus type II Family history of hyperlipidemia Family history of hypertension Family history of migraine headaches Family history of myocardial infarction Social History Smoking Status: Current every day smoker tobacco type: cigarettes packs per day: 1 alcohol intake: never counseling provided: none substance use type: denies use current occupational status: disabled Travel in the last 8 weeks: None caregiver/support person: Yes household members: caregiver housing: assisted living facility lives independently: No do you feel safe at home: Yes victim of physical abuse: No victim of emotional abuse: No victim of sexual abuse: No would you like helpful sources: No Review of Systems Review of Systems Review of systems (narrative): Limited patient's minimal responsiveness to verbal commands in the setting of altered mentation and hypercarbic respiratory failure *Cardiovascular Cardiovascular: Reports dyspnea, Reports dyspnea on exertion and Denies orthopnea *Respiratory Respiratory: Reports chest congestion, Reports cough, Reports dyspnea, Reports dyspnea on exertion, Denies excessive phlegm production and Denies wheezing *Gastrointestinal Gastrointestinal: Denies abdominal pain, Denies belching and Denies cramping *Musculoskeletal Musculoskeletal: Reports back pain Hematologic/Lymphatic Hematologic/Lymphatic: Denies easy bleeding and Denies lymphadenopathy Allergic/Immunologic Allergic/Immunologic: Denies wheezing Pulmonology Exam Inpatient Vital signs and Labs for Last 24 Hours: Temp Pulse Resp BP Pulse Ox O2 Del Method O2 Flow Rate 97.8 F 79 16 147/85 H 98 BiPAP 4 01/18/24 08:00 01/18/24 08:00 01/18/24 08:00 01/18/24 08:00 01/18/24 08:00 01/18/24 08:00 01/18/24 00:21 FiO2 30 01/18/24 09:46 Laboratory Results - last 24 hr 01/17/24 18:46: WBC 7.5, RBC 4.17 L, Hgb 10.4 L, Hct 34.7 L, MCV 83.1, MCH 24.9 L, MCHC 29.9 L, RDW 17.3, Plt Count 239, MPV 8.2, Neut % (Auto) 73.9, Lymph % (Auto) 18.9, [place] % (Auto) 5.9, Eos % (Auto) 0.8, Baso % (Auto) 0.5, Neut # (Auto) 5.5, Lymph # (Auto) 1.4, [place] # (Auto) 0.4, Eos # (Auto) 0.1, Baso # (Auto) 0.0, Sodium 138, Potassium 4.9, Chloride 94 L, Carbon Dioxide 42 H*, Anion Gap 6.9, BUN 27 H, Creatinine 0.60, Estimated Creat Clear 116, Estimated GFR 105, Est GFR ( Amer) 127, Glucose 80, Calcium 7.9 L, Phosphorus 5.0 H , Magnesium 2.0, Total Bilirubin 0.2, AST 25, ALT 6 L, Alkaline Phosphatase 62, Troponin I 0.06 H, Total Protein 6.6, Albumin 3.0 L, Globulin 3.6 H, A lbumin/Globulin Ratio 0.8 L, Urine Color Yellow, Urine Appearance Clear, Urine pH 6.0, Ur Specific [place] 1.025, Urine Protein Negative, Urine Glucose (UA) 2+, Urine Ketones Negative, Urine Blood Trace-i, Urine Nitrate Negative, Urine Bilirubin Negative, Urine Urobilinogen 0.2, Ur Leukocyte Esterase Negative, Urine RBC 3-5, Urine WBC Occasional, Ur Squamous Epith Cells 10-20, Urine Bacteria Trace, Urine Yeast 1+ 01/17/24 18:48: VBG pH 7.34, VBG pCO2 70.3 H, VBG pO2 108.2 H, VBG HCO3 36.8 H, VBG Total CO2 39.0 H, VBG O2 Saturation 97.9 H, VBG Base Excess 11.0 H, VBG Lactic Acid 1.3 01/17/24 21:48: Troponin I 0.08 H 01/18/24 00:12: Troponin I 0.08 H 01/18/24 08:45: Specimen Source Right radial, O2 % 50, ABG pH 7.27 L, ABG pCO2 100.2 H, ABG pO2 105.8 H, ABG HCO3 44.6 H, ABG Total CO2 47.6 H, ABG O2 Saturation 97, ABG Base Excess 17.6 H, Bowen Test Acceptable, Vent Rate 16, PEEP Bipap 20/10 I & O for Labs for Last 24 Hours: Intake & Output 01/15/24 01/16/24 01/17/24 01/18/24 23:59 23:59 23:59 23:59 Intake Total 240 / 240 Output Total 0 / 0 Balance 240 / 240 Weight 150 lb 162 lb 11.218 oz Constitutional: Present severe distress Head: Present normocephalic and atraumatic ENT: Present normal exam, normal oropharynx and mucous membranes moist Neck: Present normal inspection and full ROM Respiratory: Present prolonged expiratory phase, respiratory distress and diminished air movement; Absent wheezes, crackles or able to speak in complete sentences Cardiac: Present S1/S2, Tachycardia and radial pulses present GI: Present soft and distention; Absent tenderness or guarding Rectal (female): Present deferred (female): Present deferred Skin: Present intact; Absent cyanosis or jaundice Neuro: Present awake; Absent alert or oriented x 3 Extremities: Present normal inspection; Absent clubbing or cyanosis Meds Home Medications and Allergies Home Medications Medication Instructions Recorded Confirmed Type furosemide 20 mg tablet (Lasix) 20 mg PO DAILY #90 tabs 10/17/23 01/17/24 Rx Ventolin HFA 90 mcg/actuation See Rx Instructions .Route 11/07/23 01/17/24 Rx aerosol inhaler (albuterol sulfate) .COMPLEX #18 grams clonidine HCl 0.1 mg tablet 0.1 mg PO BID mood #180 tabs 11/14/23 01/17/24 Rx diclofenac sodium 1 % topical gel 2 g topical QID #100 grams 11/14/23 01/17/24 Rx (Arthritis Pain (diclofenac)) escitalopram oxalate 10 mg tablet 10 mg PO DAILY #90 tabs 11/14/23 01/17/24 Rx (Lexapro) gabapentin 300 mg capsule 300 mg PO BID 30 days #60 caps 11/14/23 01/17/24 Rx omeprazole 20 mg capsule,delayed 20 mg PO DAILY #30 caps 11/14/23 01/17/24 Rx release ipratropium 0.5 mg-albuterol 3 mg 3 ml inhalation QID PRN shortness 11/30/23 01/17/24 Rx (2.5 mg base)/3 mL nebulization of breath or wheezing 90 days #270 soln mL albuterol sulfate 90 mcg/actuation 2 puff inhalation Q4-6H PRN 12/01/23 01/17/24 Rx aerosol inhaler (Proventil HFA) shortness of breath or wheezing #8.5 grams empagliflozin 10 mg tablet 10 mg PO DAILY 90 days #90 tabs 12/28/23 01/17/24 Rx (Jardiance) ondansetron 4 mg disintegrating 4 mg PO DAILY PRN nausea and 01/06/24 01/17/24 Rx tablet vomiting #30 tabs bupropion HCl 300 mg 24 hr tablet, 300 mg PO DAILY 01/18/24 01/18/24 History extended release clonazepam 1 mg tablet 0.5 mg PO BIDP PRN Anxiety 01/18/24 01/18/24 History dextromethorphan 20 mg-quinidine 1 cap PO BID 01/18/24 01/18/24 History 10 mg capsule (Nuedexta) divalproex 500 mg tablet,delayed 500 mg PO TID 01/18/24 01/18/24 History release trazodone 100 mg tablet 100 mg PO HS 01/18/24 01/18/24 History New Prescriptions to Start Prescriptions: Allergies Allergy/AdvReac Type Severity Reaction Status Date / Time nicotine AdvReac Rash Verified 01/06/24 13:39 Results Laboratory Findings 01/17/24 18:46 01/17/24 18:46 ABG ABG pH 7.27 mmol/L (7.35-7.45) L 01/18/24 08:45 ABG pCO2 100.2 mmhg (35.0-45.0) H 01/18/24 08:45 ABG pO2 105.8 mmhg (80-100) H 01/18/24 08:45 ABG O2 Saturation 97 % (90-100) 01/18/24 08:45 Abnormal lab findings: Abnormal Labs 01/17/24 01/17/24 01/17/24 18:46 18:48 21:48 RBC 4.17 L Hgb 10.4 L Hct 34.7 L MCH 24.9 L MCHC 29.9 L ABG pH ABG pCO2 ABG pO2 ABG HCO3 ABG Total CO2 ABG Base Excess VBG pCO2 70.3 H VBG pO2 108.2 H VBG HCO3 36.8 H VBG Total CO2 39.0 H VBG O2 Saturation 97.9 H VBG Base Excess 11.0 H Chloride 94 L Carbon Dioxide 42 H* BUN 27 H Calcium 7.9 L Phosphorus 5.0 H ALT 6 L Troponin I 0.06 H 0.08 H Albumin 3.0 L Globulin 3.6 H Albumin/Globulin Ratio 0.8 L 01/18/24 01/18/24 00:12 08:45 RBC Hgb Hct MCH MCHC ABG pH 7.27 L ABG pCO2 100.2 H ABG pO2 105.8 H ABG HCO3 44.6 H ABG Total CO2 47.6 H ABG Base Excess 17.6 H VBG pCO2 VBG pO2 VBG HCO3 VBG Total CO2 VBG O2 Saturation VBG Base Excess Chloride Carbon Dioxide BUN Calcium Phosphorus ALT Troponin I 0.08 H Albumin Globulin Albumin/Globulin Ratio Assessment and Plan *Assessment and plan (1) Acute exacerbation of chronic obstructive pulmonary disease: Status: Acute Category: Medical Code(s): J44.1 - Chronic obstructive pulmonary disease with (acute) exacerbation (2) Acute respiratory failure with hypoxia and hypercapnia: Status: Resolved Category: Medical Code(s): J96.01 - Acute respiratory failure with hypoxia; J96.02 - Acute respiratory failure with hypercapnia Plan Ms. Ardon is a 53-year-old female greater than [id number] smoking history emphysema recently generously inhaler workup no symptoms or respiratory distress, bilateral pleural effusions, multiple admissions for hypercarbic respiratory failure presented to the ER with worsening respiratory's hypercarbic respiratory failure needing noninvasive ventilator therapy and pulmonary was called for further evaluation and management. Echo September 2023: Normal LV systolic and diastolic dysfunction. RV normal size with contractility. RVSP greater than [address] chest without contrast bilateral pleural effusions right greater than left with adjacent atelectasis. Afebrile. Hemodynamically stable. No evidence of leukocytosis. Patient arousing to verbal stimuli. Not appropriately responding to commands. Repeat VBG from this morning continue to show hypercarbic respiratory failure. Concern for polypharmacy of medications reviewed by primary team. Plan: Continue BiPAP settings currently on 03/22 with a rate of 22, FiO2 at 30% DuoNebs every 4 hours along with Pulmicort every 12 scheduled Repeat VBG in 2 hours Methylprednisolone 60 mg IV daily Will hold off on initiating antibiotics at this point of time Lasix 40 mg IV once # Thank you for involving pulmonary in this patient care. Will continue to follow.
[2024-01-18 10:31] LABS: NT Pro Brain Natriuretic Pep. 4100 pg/mL (0-125)
[2024-01-18] MEDS: ALBUTEROL 0.083% 2.5 MG/3 ML NEB 5 MG IH (11:00)
[2024-01-18] MEDS: METHYLPREDNISOLONE SOD SUCC 125MG VIAL 60 MG IV (12:40)
[2024-01-18] MEDS: DIVALPROEX 500MG (Delayed-Release) TABLET 500 MG PO ×2 (12:41→20:57)
[2024-01-18] MEDS: BUMETANIDE 1 MG TABLET PO (12:41)
[2024-01-18 13:08] LABS: Lactate Venous 1.5 mmol/L (0.4-2.0); VBG Base Excess 17.5 mmol/L (-2.4-2.3); VBG Oxygen Saturation 85.1 % (50-70); VBG PH 7.36 mmol/L (7.31-7.41); VBG PO2 49.9 mmol/L (28-40); VBG Total CO2 45.4 mmol/L (23-27)
[2024-01-18 13:10] LABS: VBG PCO2 78.4 mmol/L (35-51)
--- NOTE | 2024-01-18 13:18 | EXP.CARD.CON ---
History of Present Illness History of Present Illness Consult date: 01/18/24 Requesting physician: Dickson Bryant Consult reason: congestive heart failure Chief complaint: somnolence, SOA Additional Medical History:: 1. COPD/pulmonary hypertension A. Continuous home oxygen B. Tobacco use C. Enlarged pulmonary artery on CTA of the chest, 06/2022 suspicious for chronic pulmonary artery hypertension. D. Bronchoscopy, 06/2022. Biopsies negative for malignancy 2. HFpEF A. Echo, 07/2023, normal EF, RVSP > 60 mmHg B. Lexiscan Myoview, no ischemia, EF 63%. Increased RV wall thickness noted. C. Jardiance started 10/2023 3. Abnormal EKG with left posterior fascicular block A. CAC noted on Chest CT, 12/2023 4. History of chronic schizophrenia A. History of tremor and gait disturbance felt related to extraparametal syndrome from medication 5. Hirsutism 6. History of anxiety disorder/seizure disorder and mood disorder 7. Colonoscopy, 05/06/2023, hyperperistalsis and hypercontractility of the colon. Multiple polyps removed. Pathology negative. History of present illness: 53 yo WF admitted through the ER for increased somnolence, SOA and falls per sister. Pt has cognitive delay at baseline and is a difficult historian. Workup in the ER identified hypoxic respiratory failure without infection for which patient was subsequently admitted. Pulmonary has since seen the patient. She is well-known to him and has been started on BiPAP therapy for hyper cardiac respiratory failure exacerbation. Cardiology was asked to see for evaluation of possible HFpEF exacerbation. Patient is currently on BiPAP therapy and is unable to provide adequate information. [facility] Disclaimer: The information contained in this section may have been updated after the patient was seen, as this information can be updated by other users. Medical History Right lower lobe pneumonia Encounter for general medical examination Lower GI bleeding Abnormal laboratory test result Asthma exacerbation in COPD Acute chest wall pain Pneumonia UTI (urinary tract infection) Recurrent pneumonia Acute viral syndrome Abnormal electrocardiogram [ECG] [EKG] Cough Diarrhea REYMUNDO (obstructive sleep apnea) (HFpEF) heart failure with preserved ejection fraction Oxygen dependent Neuropathy Smoking greater than 30 pack years Mediastinal lymphadenopathy Pulmonary embolism Dyspnea on exertion Acute diastolic CHF (congestive heart failure) Pulmonary hypertension Hilar lymphadenopathy Pleural effusion on right Pneumonia Anxiety disorder Seizure disorder Mood disorder Incontinence INCONTINENCE AT TIMES History of COVID-19 Asthma History of gastroesophageal reflux (GERD) Allergies Depression Anxiety Urinary tract infection Migraine COPD (chronic obstructive pulmonary disease) Hyperlipidemia Hypertension Surgical History History of colonoscopy History of breast biopsy History of hysterectomy History of cholecystectomy Family History Father Lung cancer Sister Ovarian cancer Kidney disease Lung cancer Mother Kidney disease Other Family history of diabetes mellitus type II Family history of hyperlipidemia Family history of hypertension Family history of migraine headaches Family history of myocardial infarction Social History Smoking Status: Current every day smoker tobacco type: cigarettes packs per day: 1 alcohol intake: never counseling provided: none substance use type: denies use current occupational status: disabled Travel in the last 8 weeks: None caregiver/support person: Yes household members: caregiver housing: assisted living facility lives independently: No do you feel safe at home: Yes victim of physical abuse: No victim of emotional abuse: No victim of sexual abuse: No would you like helpful sources: No Review of Systems Review of Systems Review of systems:: unable to obtain Exam Data for Last 24 hours Vital signs and Labs for Last 24 Hours: Temp Pulse Resp BP Pulse Ox O2 Del Method O2 Flow Rate 98.9 F 72 16 147/85 H 98 BiPAP 4 01/18/24 12:00 01/18/24 11:00 01/18/24 08:00 01/18/24 08:00 01/18/24 08:00 01/18/24 08:00 01/18/24 00:21 FiO2 30 01/18/24 09:46 Laboratory Results - last 24 hr 01/17/24 18:46: WBC 7.5, RBC 4.17 L, Hgb 10.4 L, Hct 34.7 L, MCV 83.1, MCH 24.9 L, MCHC 29.9 L, RDW 17.3, Plt Count 239, MPV 8.2, Neut % (Auto) 73.9, Lymph % (Auto) 18.9, [place] % (Auto) 5.9, Eos % (Auto) 0.8, Baso % (Auto) 0.5, Neut # (Auto) 5.5, Lymph # (Auto) 1.4, [place] # (Auto) 0.4, Eos # (Auto) 0.1, Baso # (Auto) 0.0, Sodium 138, Potassium 4.9, Chloride 94 L, Carbon Dioxide 42 H*, Anion Gap 6.9, BUN 27 H, Creatinine 0.60, Estimated Creat Clear 116, Estimated GFR 105, Est GFR ( Amer) 127, Glucose 80, Calcium 7.9 L, Phosphorus 5.0 H, Magnesium 2.0, Total Bilirubin 0.2, AST 25, ALT 6 L, Alkaline Phosphatase 62, Troponin I 0.06 H, Total Protein 6.6, Albumin 3.0 L, Globulin 3.6 H, Albumin/Globulin Ratio 0.8 L, Urine Color Yellow, Urine Appearance Clear, Urine pH 6.0, Ur Specific [place] 1.025, Urine Protein Negative, Urine Glucose (UA) 2+, Urine Ketones Negative, Urine Blood Trace-i, Urine Nitrate Negative, Urine Bilirubin Negative, Urine Urobilinogen 0.2, Ur Leukocyte Esterase Negative, Urine RBC 3-5, Urine WBC Occasional, Ur Squamous Epith Cells 10-20, Urine Bacteria Trace, Urine Yeast 1+ 01/17/24 18:48: VBG pH 7.34, VBG pCO2 70.3 H, VBG pO2 108.2 H, VBG HCO3 36.8 H, VBG Total CO2 39.0 H, VBG O2 Saturation 97.9 H, VBG Base Excess 11.0 H, VBG Lactic Acid 1.3 01/17/24 21:48: Troponin I 0.08 H 01/18/24 00:12: Troponin I 0.08 H, NT-Pro-B Natriuret Pep 4100 H 01/18/24 08:45: Specimen Source Right radial, O2 % 50, ABG pH 7.27 L, ABG pCO2 100.2 H, ABG pO2 105.8 H, ABG HCO3 44.6 H, ABG Total CO2 47.6 H, ABG O2 Saturation 97, ABG Base Excess 17.6 H, Bowen Test Acceptable, Vent Rate 16, PEEP Bipap 20/10 01/18/24 13:00: VBG pH 7.36, VBG pCO2 78.4 H, VBG pO2 49.9 H, VBG HCO3 43.0 H, VBG Total CO2 45.4 H, VBG O2 Saturation 85.1 H, VBG Base Excess 17.5 H, VBG Lactic Acid 1.5 I & O for Last 24 hours: Intake & Output 01/16/24 01/17/24 01/18/24 01/19/24 11:59 11:59 11:59 11:59 Intake Total 240 / 240 Output Total 0 / 0 Balance 240 / 240 Weight 162 lb 11.218 oz Constitutional Constitutional: no acute distress *Routine Respiratory Exam Respiratory: Present decreased breath sounds and CTA bilaterally *Routine Cardiovascular Exam Cardiovascular: Present RRR; Absent murmur, gallop or rubs *Routine Extremities Exam Extremities: Absent edema Meds Home Medications and Allergies Home Medications Medication Instructions Recorded Confirmed Type furosemide 20 mg tablet (Lasix) 20 mg PO DAILY #90 tabs 10/17/23 01/17/24 Rx Ventolin HFA 90 mcg/actuation See Rx Instructions .Route 11/07/23 01/17/24 Rx aerosol inhaler (albuterol sulfate) .COMPLEX #18 grams clonidine HCl 0.1 mg tablet 0.1 mg PO BID mood #180 tabs 11/14/23 01/17/24 Rx diclofenac sodium 1 % topical gel 2 g topical QID #100 grams 11/14/23 01/17/24 Rx (Arthritis Pain (diclofenac)) escitalopram oxalate 10 mg tablet 10 mg PO DAILY #90 tabs 11/14/23 01/17/24 Rx (Lexapro) gabapentin 300 mg capsule 300 mg PO BID 30 days #60 caps 11/14/23 01/17/24 Rx omeprazole 20 mg capsule,delayed 20 mg PO DAILY #30 caps 11/14/23 01/17/24 Rx release ipratropium 0.5 mg-albuterol 3 mg 3 ml inhalation QID PRN shortness 11/30/23 01/17/24 Rx (2.5 mg base)/3 mL nebulization of breath or wheezing 90 days #270 soln mL albuterol sulfate 90 mcg/actuation 2 puff inhalation Q4-6H PRN 12/01/23 01/17/24 Rx aerosol inhaler (Proventil HFA) shortness of breath or wheezing #8.5 grams empagliflozin 10 mg tablet 10 mg PO DAILY 90 days #90 tabs 12/28/23 01/17/24 Rx (Jardiance) ondansetron 4 mg disintegrating 4 mg PO DAILY PRN nausea and 01/06/24 01/17/24 Rx tablet vomiting #30 tabs bupropion HCl 300 mg 24 hr tablet, 300 mg PO DAILY 01/18/24 01/18/24 History extended release clonazepam 1 mg tablet 0.5 mg PO BIDP PRN Anxiety 01/18/24 01/18/24 History dextromethorphan 20 mg-quinidine 1 cap PO BID 01/18/24 01/18/24 History 10 mg capsule (Nuedexta) divalproex 500 mg tablet,delayed 500 mg PO TID 01/18/24 01/18/24 History release trazodone 100 mg tablet 100 mg PO HS 01/18/24 01/18/24 History New Prescriptions to Start Prescriptions: Allergies Allergy/AdvReac Type Severity Reaction Status Date / Time nicotine AdvReac Rash Verified 01/06/24 13:39 Assessment and Plan *Assessment and plan (1) Acute hypoxic on chronic hypercapnic respiratory failure: Status: Acute Category: Medical Code(s): J96.01 - Acute respiratory failure with hypoxia; J96.12 - Chronic respiratory failure with hypercapnia (2) Declining functional status: Status: Acute Category: Medical Code(s): R53.81 - Other malaise (3) (HFpEF) heart failure with preserved ejection fraction: Status: Acute Qualifiers: Heart failure chronicity: unspecified Qualified Code(s): I50.30 - Unspecified diastolic (congestive) heart failure Category: Medical Code(s): I50.30 - Unspecified diastolic (congestive) heart failure (4) Cor pulmonale: Status: Acute Category: Medical Code(s): I27.81 - Cor pulmonale (chronic) (5) Emphysema lung: Status: Acute Qualifiers: Emphysema type: panlobular Qualified Code(s): J43.1 - Panlobular emphysema Category: Medical Code(s): J43.9 - Emphysema, unspecified (6) Chronic anemia: Status: Acute Category: Medical Code(s): D64.9 - Anemia, unspecified (7) Elevated troponin level not due to acute coronary syndrome: Status: Acute Category: Medical Code(s): R79.89 - Other specified abnormal findings of blood chemistry Plan 1. Acute hypoxic on chronic hypercapneic resp failure -on BiPAP -pulmonary managing 2. HFpEF/cor pulmonale -BNP [address] noting small bilateral pleural effusions -continue jardiance and lasix 3. Elevated troponins felt secondary to respiratory failure creating cardiac strain during hypoxic period -No further workup at this time 4. Chronic anemia, chronic hemoglobin 10-11 -Hemoglobin 10.4 5. History of schizophrenia with mood disorder/anxiety and depression -Continue psychiatric medications Given bumex 1 mg today Add spironolactone 25 mg daily Primary management will be pulmonary based
--- NOTE | 2024-01-18 13:43 | HMH.PTEV ---
Physical Therapy Evaluation Rehab PT IP Evaluation Start: 01/18/24 07:37 Freq: ONCE Status: Active Protocol: Document 01/18/24 13:36 CASTILLO (Rec: 01/18/24 13:43 CASTILLO [email or web address]) Subjective/History History History Pt is a 53 y/o female who presents to [facility] for Acute hypoxic respiratory failure, Somnolence, Falls frequently, Injury of right forearm, Injury of left lower leg, and declining functional status. Subjective Subjective Pt oriented to self but not birthdate or month. Pt able to give some subjective history but limited by impaired cog. Pt states she lives with her sister who cares for her as needed. Pt unable to recall type of home, AD use, or presence of stairs in home. Not driving prior to admission . Confirm history with CM. New diagnosis of cancer in past 12 No months? Rehab PT IP Eval Objective Appearance Patient Behavior Appropriate,Cooperative Patient Orientation Person,Place Difficulty following instructions none Speech Pattern Clear Ambulation Patient Able to Ambulate Yes Ambulation Observation IP General Gait Pattern Observation Wide Based Gait Ambulation Distance (feet) 3 Ambulation Assistive Device None Ambulation Ability Minimal x 1 (25% assist) Balance Ability to Arise Able, uses arms to help Sitting Balance Steady, safe Standing Balance Unsteady Transfers Bed Transfer Ability Minimal x 2 (25% assist) Sit to Stand Bed Transfer Ability Minimal x 1 (25% assist) Rehab PT IP prob,goals,plan Problems Date of Evaluation: 01/18/24 PT IP Problems Bed Mobility,Transfers,Gait, Balance,Self care,Safety Rehab Potential Rehab Potential Good Equipment Needs Assistive Devices Rolling / Wheeled Walker Plan PT Intervention Plan Bed Mobility,Transfers,Gait, Balance,Safety,Therapeutic Exercise Other Intervention Plan 1-2 times PT Plan Frequency Daily Duration LOS Discharge Goals Bed Transfer Ability Minimal x 1 (25% assist) Sit to Stand Chair Transfer Ability Contact Guard/Hand Hold Ambulation Assistive Device Rolling Walker Ambulation Distance (feet) 10 Discharge Plan PT Discharge Plan Initial physical therapy evaluation performed. Patient presents below baseline at this time in functional mobility, transfers, and strength. Pt safe to return home at this time if she has 24/7 care by a family member. Pt is not safe to be home alone, so if pt is unable to secure 24/7 care/assistance, pt would benefit from a rehabilitation placement upon d/c from [facility]. Pt would benefit from skilled PT while at [facility] to prevent further functional decline and maximize safety with mobility. Eval Complexity Eval Charge Codes 99088 - Moderate Complexity PHYSICIAN CERTIFICATION: I certify the specified therapy services for Nestor Ardon are required, authorized, and reviewed every 30 days.
--- NOTE | 2024-01-18 13:51 | CARE MANAGER ---
Addendum entered by Juju Hobbs RN 01/23/24 16:09: Patient's sister verbally consented to [facility] for continued PT/OT services. Referral faxed to [facility]. Addendum entered by Ivone Burgos 01/23/24 15:43: [facility]/ [facility] followed up w/ patient and family at home today. Patient is no longer interested in placement at this time. Addendum entered by Juju Hobbs RN 01/20/24 18:11: Spoke with patient's sister, Anita this afternoon. Plan is for her to pick remover patient in the morning (Tuesday, 01/20) and CM will continue to work on placement vs HH. Addendum entered by Juju Hobbs RN 01/20/24 17:25: Haven't heard back from [facility], [facility] is going to let us know on Tuesday. Plan is to discharge home now that patient has been able to walk with therapy, and we will continue to work on placement on Tuesday. Unable to reach family this afternoon, left a message with sister to call me. Will continue to monitor. Addendum entered by Estela Garrett RN 01/20/24 16:50: [facility] unable to accept patient. Sent to [facility]. Addendum entered by Juju Hobbs RN 01/19/24 16:19: Patient and sister are now agreeable to [facility]. [facility] signed and I am faxing referral to [facility] now. Original Note: Contacted patient's sister and she had been thinking patient may need more care than she can [facility]. We discussed LTC and being Medicaid. She wishes for [facility], but will follow up with patient.
--- NOTE | 2024-01-18 14:01 | HMH.OTEV ---
OT Inpatient Evaluation Rehab OT IP Evaluation Start: 01/18/24 07:37 Freq: ONCE Status: Active Protocol: Document 01/18/24 13:35 JEAN (Rec: 01/18/24 14:00 [id number] Re[facility] OT IP Assessment Subjective History HPI narrative: Patient is a 53-year-old female who is brought in to this facility's ER for increased somnolence. Patient has known chronic cognitive decline and her sister was at the bedside who provides the vast majority of the history. The patient claims that she has been falling and that she has right wrist pain the sister confirms this. Sister states she normally is up able to walk around the house do some activities to care for herself but over the last few days she is been very sleepy having difficulty getting up and when she does get out but she is following regularly. Most recent fall was 3 days ago. Each time that she is following she tells her sister that she has not had any significant injuries. However she is complaining of right wrist and left foot pain. She was here within the last few months for a left foot injury that her sister feels may have been exacerbated with the recent fall. No head injuries that we are aware of. She is not on any anticoagulants or antiplatelet agents. She does have a history of COPD wears 2 L nasal cannula at home they did not have a home pulse ox she has not had increased shortness of breath unsure as to whether or not she has had worsening cough or wheezing. She does have a history of having recurrent pneumonias on chart review. History is limited from the patient given her baseline clinical status though. Pt was admitted to this facility on 01/15/2024. PLOF: Pt reported she lives with sister and her family. Pt was unable to give information about home set-up, but did report there were steps. Pt reported sister works, but her niece is there when sister is at work. Pt reports sister needed to assist her in dressing and bathing and sister completes all IADLs. Pt was unable to report if they use any assistive devices to complete functional mobility or transfers. Pt was unable to report they wear O2 at home, but upon further chart review it stated pt wears 2 L O2 at home. Pt reports they do not drive. Subjective Please don't let me fall. Nursing was completing toilet hygiene in bed with pt when therapy entered room. Pt was agreeable to participate in initial OT eval this afternoon . Pt was oriented x2. Pt agreed to sit on EOB. Pt went from supine to EOB with Min Assist x2. Pt then sat on EOB for ~1 minute while therapy donned socks and Pt was able to hold static sitting balance CGA. Pt then completed a sit to stand transfer with Min Assist. Pt reported to therapy they did not want to fall. Pt was able to hold static standing balance for ~40 seconds with Min Assist before sitting back on EOB. Pt then completed a ffe-cl-upmeo transfer Min Assist and was able to complete functional mobility task of ~4 feet with Min Assist. Pt reported they wanted to get back in bed. Pt went from EOB to supine Min Assist. Pt was left in bed with call light and all other needs within reach. Objective Patient Orientation Person,Place Right Upper Extremity Gross ROM WFL Left Upper Extremity Gross ROM WFL Bed Mobility bed mobility-scooting,bed mobility - supine/sit,bed mobility - rolling Assist Level Minimal x 2 (25% assist) Transfer Training Sit/Stand Transfer Assist Level Contact Guard/Hand Hold Lower Body Dressing Ability Maximum Assistance Decrease in Endurance Yes Rehab OT IP prob,goals,plan Problems Date of Evaluation: 01/18/24 OT IP Problems Bed Mobility,Transfers,Balance ,Self care,Safety Rehab Potential Rehab Potential Good Equipment Needs Assistive Devices Straight Cane,Standard Walker Plan OT intervention Plan Bed Mobility,Transfers,Balance ,Self care,Safety,Therapeutic Exercise OT Plan Frequency Daily Duration LOS Discharge Goals Bed Mobility Ability Standby Assistance Sit to Stand Chair Transfer Ability Minimal x 1 (25% assist) Chair Transfer Ability Minimal x 1 (25% assist) Chair Transfer Technique Sit to/from Ambulatory Chair Transfer Assistive Devices Rolling Walker Lower Body Dressing Ability Minimal Assistance Upper Body Dressing Ability Contact Guard Bathing Ability Moderate Assistance Performing Toilet Hygiene Ability Moderate Assistance Overall Commode/Toilet Transfer Ability Minimal Assistance Commode/Toilet Transfer Technique Sit to/from Ambulatory Decrease in Endurance No Discharge Plan OT Discharge Plan At this time, it is recommended that if pt's sister and family can take care of pt, pt can go home with home health to receive skilled OT services to address occupational performance deficits. If pt's family is not able to take care of pt, short term rehab placement is also recommended to address decline in occupational performance and provide skilled OT services to address these deficits. All of this is pending dr orders and medical status. Pt will continue to be seen while at the facility for skilled OT services to address occupational performance decline. Eval Complexity Eval Charge Codes 05308 - Moderate Complexity PHYSICIAN CERTIFICATION: I certify the specified therapy services for Nestor Ardon are required, authorized, and reviewed every 30 days.
--- NOTE | 2024-01-18 14:18 | PC.NURSE ---
RESP CARE NOTE: Pt can have a break from BIPAP use, until 1900. At [address] BIPAP back on and wear until AM, Per Dr Armenta.
--- NOTE | 2024-01-18 14:25 | PC.NURSE ---
Pt was placed on 3.5 L O2 NC at 1200. Pt has tolerated PO medications and her regular diet. She is currently on O2 2L NC. New orders received from MD Armenta: Keep pt onO2 NC until 2Hrs after dinner then place on Bipap to continue overnight.
[2024-01-18] MEDS: ACETAMINOPHEN 325MG TAB 650 MG PO (18:19)
[2024-01-18] MEDS: BUDESONIDE 0.5MG/2ML NEB 0.5 MG IH (18:24)
--- NOTE | 2024-01-18 18:38 | PC.NURSE ---
Pt currently sitting up in bed eating dinner. Family is at bedside. She is currently on 3L O2 NC. VS currently stable. Call light within reach. Safety measures in place.
[2024-01-18] MEDS: ENOXAPARIN 40MG/0.4ML SYRINGE 40 MG SQ (20:56)
[2024-01-18] MEDS: PANTOPRAZOLE 40MG VIAL 40 MG IV (20:57)
[2024-01-19] VITALS (14 sets, daily range): BP systolic 133–180; BP diastolic 66–94; PULSE 60–80; RESP 13–28; TEMP 36.6–36.9; O2SAT 91–100; BMI 27.0
[2024-01-19] MEDS: IPRATROPIUM/ALBUTEROL 3 ML NEB IH ×5 (02:08→23:29)
[2024-01-19] MEDS: BUDESONIDE 0.5MG/2ML NEB 0.5 MG IH ×2 (06:42→18:23)
--- NOTE | 2024-01-19 06:58 | PC.NURSE ---
pt has been on bi-pap through the night, nsr on monitor, periods of anxious with removal of bi-pap
[2024-01-19 07:35] LABS: Chloride 92 mmol/L (98-107)
[2024-01-19 07:36] LABS: Potassium 4.1 mmoL/L (3.5-5.1); Sodium 137 mmol/L (136-145)
[2024-01-19 07:37] LABS: Basophils # 0.1 K/mm3 (0-0.2); Basophils % 0.6 % (0.1-2.0); Eosinophils % 0.1 % (0.1-12.0); Lymphocytes % 22.4 % (10-50); Mean Corpuscular HGB Conc 29.7 g/dL (31.8-35.4); Mean Corpuscular Volume 84.3 fl (81-99); Mean Platelet Volume 10.2 fl (7.4-10.4); Monocytes # 0.6 K/mm3 (0.1-1.0); Monocytes % 6.7 % (1.7-9.3); Neutrophils # 6.4 K/mm3 (1.8-7.8); Neutrophils % 70.2 % (37.0-80.0); Platelet Count 191 K/mm3 (142-424); Red Blood Count 4.39 M/mm3 (4.20-5.40); Red Cell Distribution Width 17.2 % (11.5-17.5); White Blood Count 9.1 K/mm3 (4.8-10.8)
[2024-01-19 07:38] LABS: Alanine Aminotransferase 9 U/L (12-78); Alkaline Phosphatase 93 U/L (38-126); Anion Gap 9.1 mEq/L (5-15); Aspartate Amino Transferase 37 U/L (14-36); Bilirubin,Total 0.4 mg/dl (0.2-1.3); Blood Urea Nitrogen 23 mg/dl (7-17); Carbon Dioxide 40 mmol/L (22.0-30.0); Creatinine Clearance Estimated 126 mL/min (50-200); Estimated Glomerular Filt Rate 105 ml/min (>60); GFR (African American) 127 ML/MIN (>60)
[2024-01-19 07:39] LABS: Albumin Level 3.1 g/dl (3.5-5.0); Albumin/Globulin Ratio 0.9 (1.1-1.8); Calcium 8.1 mg/dl (8.4-10.2); Globulin 3.6 g/dL (1.3-3.2); Glucose 81 mg/dl (74-100); Magnesium 2.1 mg/dl (1.6-2.3); Total Protein,Serum 6.7 g/dl (6.3-8.2)
--- NOTE | 2024-01-19 08:52 | PC.NURSE ---
Pt taken off Bipap and placed on 2L O2 NC.
[2024-01-19] MEDS: SPIRONOLACTONE 25MG TABLET 25 MG PO (09:02)
[2024-01-19] MEDS: DIVALPROEX 500MG (Delayed-Release) TABLET 500 MG PO ×3 (09:02→20:30)
[2024-01-19] MEDS: CITALOPRAM 20MG TABLET 20 MG PO (09:02)
[2024-01-19] MEDS: buPROPion HCl SR 150MG TAB 300 MG PO (09:02)
[2024-01-19] MEDS: METHYLPREDNISOLONE SOD SUCC 125MG VIAL 60 MG IV (09:02)
--- NOTE | 2024-01-19 09:38 | P.PN_ITS ---
Subjective *Date: 01/19/24 *Time: 11:18 Interval history: Patient alert and oriented x 2 today. No acute respiratory vents overnight. Admits improving respiratory distress. Complains of loose bowel movements. Pulmonology Exam Inpatient Vital signs and Labs for Last 24 Hours: Temp Pulse Resp BP Pulse Ox O2 Del Method O2 Flow Rate 98.5 F 65 18 180/94 H 95 Nasal Cannula 2 01/19/24 08:00 01/19/24 09:29 01/19/24 08:00 01/19/24 08:00 01/19/24 08:56 01/19/24 08:56 01/19/24 08:56 FiO2 30 01/19/24 06:42 Laboratory Results - last 24 hr 01/18/24 00:12: NT-Pro-B Natriuret Pep 4100 H 01/18/24 08:45: Specimen Source Right radial, O2 % 50, ABG pH 7.27 L, ABG pCO2 100.2 H, ABG pO2 105.8 H, ABG HCO3 44.6 H, ABG Total CO2 47.6 H, ABG O2 Saturation 97, ABG Base Excess 17.6 H, Bowen Test Acceptable, Vent Rate 16, PEEP Bipap 20/10 01/18/24 13:00: VBG pH 7.36, VBG pCO2 78.4 H, VBG pO2 49.9 H, VBG HCO3 43.0 H, VBG Total CO2 45.4 H, VBG O2 Saturation 85.1 H, VBG Base Excess 17.5 H, VBG Lactic Acid 1.5 01/19/24 05:23: WBC 9.1, RBC 4.39, Hgb 11.0 L, Hct 37.0, MCV 84.3, MCH 25.0 L, MCHC 29.7 L, RDW 17.2, Plt Count 191, MPV 10.2, Neut % (Auto) 70.2, Lymph % (Auto) 22.4, [place] % (Auto) 6.7, Eos % (Auto) 0.1, Baso % (Auto) 0.6, Neut # (Auto) 6.4, Lymph # (Auto) 2.0, [place] # (Auto) 0.6, Eos # (Auto) 0.0, Baso # (Auto) 0.1, Sodium 137, Potassium 4.1, Chloride 92 L, Carbon Dioxide 40 H, Anion Gap 9.1, BUN 23 H, Creatinine 0.60, Estimated Creat Clear 126, Estimated GFR 105, Est GFR ( Amer) 127, Glucose 81, Calcium 8.1 L, Magnesium 2.1, Total Bilirubin 0.4, AST 37 H D, ALT 9 L D, Alkaline Phosphatase 93, Total Protein 6.7, Albumin 3.1 L, Globulin 3.6 H, Albumin/Globulin Ratio 0.9 L Temp Pulse Resp BP Pulse Ox O2 Del Method O2 Flow Rate 97.8 F 79 16 147/85 H 98 BiPAP 4 01/18/24 08:00 01/18/24 08:00 01/18/24 08:00 01/18/24 08:00 01/18/24 08:00 01/18/24 08:00 01/18/24 00:21 FiO2 30 01/18/24 09:46 Laboratory Results - last 24 hr 01/17/24 18:46: WBC 7.5, RBC 4.17 L, Hgb 10.4 L, Hct 34.7 L, MCV 83.1, MCH 24.9 L, MCHC 29.9 L, RDW 17.3, Plt Count 239, MPV 8.2, Neut % (Auto) 73.9, Lymph % (Auto) 18.9, [place] % (Auto) 5.9, Eos % (Auto) 0.8, Baso % (Auto) 0.5, Neut # (Auto) 5.5, Lymph # (Auto) 1.4, [place] # (Auto) 0.4, Eos # (Auto) 0.1, Baso # (Auto) 0.0, Sodium 138, Potassium 4.9, Chloride 94 L, Carbon Dioxide 42 H*, Anion Gap 6.9, BUN 27 H, Creatinine 0.60, Estimated Creat Clear 116, Estimated GFR 105, Est GFR ( Amer) 127, Glucose 80, Calcium 7.9 L, Phosphorus 5.0 H , Magnesium 2.0, Total Bilirubin 0.2, AST 25, ALT 6 L, Alkaline Phosphatase 62, Troponin I 0.06 H, Total Protein 6.6, Albumin 3.0 L, Globulin 3.6 H, Albumin/Globulin Ratio 0.8 L, Urine Color Yellow, Urine Appearance Clear, Urine pH 6.0, Ur Specific [place] 1.025, Urine Protein Negative, Urine Glucose (UA) 2+, Urine Ketones Negative, Urine Blood Trace-i, Urine Nitrate Negative, Urine Bilirubin Negative, Urine Urobilinogen 0.2, Ur Leukocyte Esterase Negative, Urine RBC 3-5, Urine WBC Occasional, Ur Squamous Epith Cells 10-20, Urine Bacteria Trace, Urine Yeast 1+ 01/17/24 18:48: VBG pH 7.34, VBG pCO2 70.3 H, VBG pO2 108.2 H, VBG HCO3 36.8 H, VBG Total CO2 39.0 H, VBG O2 Saturation 97.9 H, VBG Base Excess 11.0 H, VBG Lactic Acid 1.3 01/17/24 21:48: Troponin I 0.08 H 01/18/24 00:12: Troponin I 0.08 H 01/18/24 08:45: Specimen Source Right radial, O2 % 50, ABG pH 7.27 L, ABG pCO2 100.2 H, ABG pO2 105.8 H, ABG HCO3 44.6 H, ABG Total CO2 47.6 H, ABG O2 Saturation 97, ABG Base Excess 17.6 H, Bowen Test Acceptable, Vent Rate 16, PEEP Bipap 20/10 I & O for Labs for Last 24 Hours: Intake & Output 01/16/24 01/17/24 01/18/24 01/19/24 23:59 23:59 23:59 23:59 Intake Total 580 / 580 Output Total 1700 / 1700 1000 / 1000 Balance -1120 / -1120 -1000 / -1000 Weight 150 lb 162 lb 11.218 oz 162 lb 1 oz Intake & Output 01/15/24 01/16/24 01/17/24 01/18/24 23:59 23:59 23:59 23:59 Intake Total 240 / 240 Output Total 0 / 0 Balance 240 / 240 Weight 150 lb 162 lb 11.218 oz Constitutional: Present moderate distress Head: Present normocephalic and atraumatic ENT: Present normal exam, normal oropharynx and mucous membranes moist Neck: Present normal inspection and full ROM Respiratory: Present prolonged expiratory phase, respiratory distress and diminished air movement; Absent wheezes, crackles or able to speak in complete sentences Cardiac: Present S1/S2, Tachycardia and radial pulses present GI: Present soft and distention; Absent tenderness or guarding Rectal (female): Present deferred (female): Present deferred Skin: Present intact; Absent cyanosis or jaundice Neuro: Present alert and awake Extremities: Present normal inspection; Absent clubbing or cyanosis Assessment and Plan *Assessment and plan (1) Acute exacerbation of chronic obstructive pulmonary disease: Status: Acute Category: Medical Code(s): J44.1 - Chronic obstructive pulmonary disease with (acute) exacerbation (2) Acute respiratory failure with hypoxia and hypercapnia: Status: Resolved Category: Medical Code(s): J96.01 - Acute respiratory failure with hypoxia; J96.02 - Acute respiratory failure with hypercapnia Plan Ms. Ardon is a 53-year-old female greater than [id number] smoking history emphysema recently generously inhaler workup no symptoms or respiratory distress, bilateral pleural effusions, multiple admissions for hypercarbic respiratory failure presented to the ER with worsening respiratory's hypercarbic respiratory failure needing noninvasive ventilator therapy and pulmonary was called for further evaluation and management. Echo September 2023: Normal LV systolic and diastolic dysfunction. RV normal size with contractility. RVSP greater than [address] chest without contrast bilateral pleural effusions right greater than left with adjacent atelectasis. Afebrile. Hemodynamically stable. No evidence of leukocytosis. On initial examination patient arousing to verbal stimuli. Not appropriately responding to commands. Repeat VBG from this morning continue to show hypercarbic respiratory failure. Concern for polypharmacy of medications reviewed by primary team. Interval update: Received 40 IV Lasix yesterday. Cardiology following initiated on Lasix 20 mg daily along with spironolactone. Off BiPAP this morning. Alert and oriented x 3. Will continue nasal cannula oxygen supplementation tonight without BiPAP and will repeat VBG tomorrow morning. Recommend outpatient polysomnography testing Plan: Incentive spirometry and flutter valve Continue oxygen supplementation to maintain O2 saturation goal of 90% above. On this morning on 2 L saturating 96%, weaned to 1 L nasal cannula. DuoNebs every 6 hours along with Pulmicort every 12 scheduled. Can be discharged home on Breztri inhaler which is her home medication. Wean steroids to prednisone 40 mg daily x 5 days Will hold off on initiating antibiotics at this point of time # Thank you for involving pulmonary in this patient care. Will continue to follow.
--- NOTE | 2024-01-19 10:59 | EXP.CARD.PN ---
Subjective Subjective Date: 01/19/24 Time: 10:59 Principal diagnosis: Resp Failure, Cor pulmonale Interval history: 53 yo WF on BiPAP in NAD Exam Data for Last 24 hours Vital signs and Labs for Last 24 Hours: Temp Pulse Resp BP Pulse Ox O2 Del Method O2 Flow Rate 98.5 F 65 18 180/94 H 95 Nasal Cannula 2 01/19/24 08:00 01/19/24 09:29 01/19/24 08:00 01/19/24 08:00 01/19/24 08:56 01/19/24 09:00 01/19/24 09:00 FiO2 30 01/19/24 06:42 Laboratory Results - last 24 hr 01/18/24 13:00: VBG pH 7.36, VBG pCO2 78.4 H, VBG pO2 49.9 H, VBG HCO3 43.0 H, VBG Total CO2 45.4 H, VBG O2 Saturation 85.1 H, VBG Base Excess 17.5 H, VBG Lactic Acid 1.5 01/19/24 05:23: WBC 9.1, RBC 4.39, Hgb 11.0 L, Hct 37.0, MCV 84.3, MCH 25.0 L, MCHC 29.7 L, RDW 17.2, Plt Count 191, MPV 10.2, Neut % (Auto) 70.2, Lymph % (Auto) 22.4, [place] % (Auto) 6.7, Eos % (Auto) 0.1, Baso % (Auto) 0.6, Neut # (Auto) 6.4, Lymph # (Auto) 2.0, [place] # (Auto) 0.6, Eos # (Auto) 0.0, Baso # (Auto) 0.1, Sodium 137, Potassium 4.1, Chloride 92 L, Carbon Dioxide 40 H, Anion Gap 9.1, BUN 23 H, Creatinine 0.60, Estimated Creat Clear 126, Estimated GFR 105, Est GFR ( Amer) 127, Glucose 81, Calcium 8.1 L, Magnesium 2.1, Total Bilirubin 0.4, AST 37 H D, ALT 9 L D, Alkaline Phosphatase 93, Total Protein 6.7, Albumin 3.1 L, Globulin 3.6 H, Albumin/Globulin Ratio 0.9 L I & O for Last 24 hours: Intake & Output 01/16/24 01/17/24 01/18/24 01/19/24 11:59 11:59 11:59 11:59 Intake Total 240 / 240 580 / 580 Output Total 0 / 0 2700 / 2700 Balance 240 / 240 -0 / -2120 Weight 162 lb 11.218 oz 162 lb 1 oz Constitutional Constitutional: no acute distress *Routine Respiratory Exam Respiratory: Present decreased breath sounds *Routine Cardiovascular Exam Cardiovascular: Present RRR Progress Note: A&P Assessment and plan (1) Acute hypoxic on chronic hypercapnic respiratory failure: Status: Acute (2) (HFpEF) heart failure with preserved ejection fraction: Status: Acute (3) Chronic anemia: Status: Acute (4) Emphysema lung: Status: Acute (5) Cor pulmonale: Status: Acute (6) Declining functional status: Status: Acute (7) REYMUNDO (obstructive sleep apnea): Status: Suspected (8) Seizure disorder: Status: Acute (9) Intellectual disability with epilepsy: Status: Acute Assessment and Plan Assessment and Plan for All Diagnoses:: 1. Acute hypoxic on chronic hypercapneic resp failure -on BiPAP -pulmonary managing 2. HFpEF/cor pulmonale -BNP [address] noting small bilateral pleural effusions -continue jardiance, aldactone and lasix 3. Elevated troponins felt secondary to respiratory failure creating cardiac strain during hypoxic period -No further workup at this time 4. Chronic anemia, chronic hemoglobin 10-11 -Hemoglobin 11 today 5. History of schizophrenia with mood disorder/anxiety and depression -Continue psychiatric medications Nothing further to add. STable from cardiac standpoint for discharge when ready. Home medication recommendations Jardiance 10 mg daily Lasix 20 mg daily Spironolactone 25 mg daily clonidine 0.1 mg BID Follow up in office in 2 wks.
[2024-01-19] MEDS: EMPAGLIFLOZIN 10MG TABLET 10 MG PO (12:00)
[2024-01-19] MEDS: FUROSEMIDE 20MG TABLET 20 MG PO (12:00)
[2024-01-19] MEDS: ACETAMINOPHEN 325MG TAB 650 MG PO (15:57)
--- NOTE | 2024-01-19 17:26 | P.PN_ITS ---
Subjective *Date: 01/19/24 *Time: 17:26 Interval history: Patient at baseline mentation today. Wore BiPAP overnight. Back on 1 to 2 L nasal cannula oxygen today. Working with therapy. Amenable to going to rehab. Denies chest pain or shortness of breath. Diuresing well, -2 L total since admission. Tolerating p.o. intake. Medical Exam Vital signs and Labs for Last 24 Hours: Vital Signs Temp Pulse Pulse Resp BP Pulse Ox O2 Del Method 01/19/24 16:00 98.0 F 77 16 149/80 H 95 Nasal Cannula 01/19/24 16:00 80 01/19/24 15:00 Nasal Cannula 01/19/24 13:00 Nasal Cannula 01/19/24 12:00 98.1 F 69 17 162/76 H 91 L Nasal Cannula 01/19/24 11:00 Nasal Cannula 01/19/24 09:29 65 01/19/24 09:29 67 01/19/24 09:00 Nasal Cannula 01/19/24 08:56 95 Nasal Cannula 01/19/24 08:05 BiPAP 01/19/24 08:00 60 01/19/24 08:00 98.5 F 73 18 180/94 H 96 Nasal Cannula 01/19/24 06:48 BiPAP 01/19/24 06:42 64 01/19/24 06:42 67 01/19/24 06:42 01/19/24 05:00 BiPAP 01/19/24 04:00 98.0 F 63 21 141/66 H 100 BiPAP 01/19/24 04:00 60 01/19/24 03:00 CPAP 01/19/24 02:08 64 01/19/24 02:08 66 01/19/24 02:07 01/19/24 01:00 BiPAP 01/19/24 00:00 98.0 F 66 20 165/92 H 97 BiPAP 01/19/24 00:00 60 01/18/24 23:00 BiPAP 01/18/24 22:18 66 01/18/24 22:18 69 01/18/24 22:18 01/18/24 21:00 BiPAP 01/18/24 21:00 Nasal Cannula 01/18/24 20:00 98.5 F 64 24 127/73 93 L Nasal Cannula 01/18/24 20:00 70 01/18/24 19:50 01/18/24 18:36 Nasal Cannula 01/18/24 18:28 93 L Nasal Cannula 01/18/24 18:25 76 01/18/24 18:25 78 O2 Flow Rate FiO2 01/19/24 16:00 1 01/19/24 16:00 01/19/24 15:00 1 01/19/24 13:00 1 01/19/24 12:00 1 01/19/24 11:00 1 01/19/24 09:29 01/19/24 09:29 01/19/24 09:00 2 01/19/24 08:56 2 01/19/24 08:05 01/19/24 08:00 01/19/24 08:00 2 01/19/24 06:48 01/19/24 06:42 01/19/24 06:42 01/19/24 06:42 30 01/19/24 05:00 01/19/24 04:00 01/19/24 04:00 01/19/24 03:00 01/19/24 02:08 01/19/24 02:08 01/19/24 02:07 30 01/19/24 01:00 01/19/24 00:00 01/19/24 00:00 01/18/24 23:00 01/18/24 22:18 01/18/24 22:18 01/18/24 22:18 30 01/18/24 21:00 01/18/24 21:00 3 01/18/24 20:00 2 01/18/24 20:00 01/18/24 19:50 30 01/18/24 18:36 3 01/18/24 18:28 3 01/18/24 18:25 01/18/24 18:25 Intake and Output 01/19/24 01/19/24 01/19/24 07:59 15:59 23:59 Intake Total 600 / 600 Output Total 1000 / 1000 0 / 1000 Balance -1000 / -400 600 / -400 Intake: Intake, Oral Amount 600 / 600 Output: Output, Urine Amount 1000 / 1000 0 / 1000 Other: Number of Unmeasured Voids 1 Number of Bowel Movements 2 1 Weight 73.51 kg Patient Weight 01/19/24 23:59 Weight 73.51 kg Laboratory Results - last 24 hr 01/19/24 05:23: WBC 9.1, RBC 4.39, Hgb 11.0 L, Hct 37.0, MCV 84.3, MCH 25.0 L, MCHC 29.7 L, RDW 17.2, Plt Count 191, MPV 10.2, Neut % (Auto) 70.2, Lymph % (Auto) 22.4, [place] % (Auto) 6.7, Eos % (Auto) 0.1, Baso % (Auto) 0.6, Neut # (Auto) 6.4, Lymph # (Auto) 2.0, [place] # (Auto) 0.6, Eos # (Auto) 0.0, Baso # (Auto) 0.1, Sodium 137, Potassium 4.1, Chloride 92 L, Carbon Dioxide 40 H, Anion Gap 9.1, BUN 23 H, Creatinine 0.60, Estimated Creat Clear 126, Estimated GFR 105, Est GFR ( Amer) 127, Glucose 81, Calcium 8.1 L, Magnesium 2.1, Total Bilirubin 0.4, AST 37 H D, ALT 9 L D, Alkaline Phosphatase 93, Total Protein 6.7, Albumin 3.1 L, Globulin 3.6 H, Albumin/Globulin Ratio 0.9 L I & O for Labs for Last 24 Hours: Intake & Output 01/16/24 01/17/24 01/18/24 01/19/24 23:59 23:59 23:59 23:59 Intake Total 580 / 580 600 / 600 Output Total 1700 / 1700 1000 / 1000 Balance -1120 / -1120 -400 / -400 Weight 68.039 kg 73.8 kg 73.51 kg Constitutional: Present no acute distress, average body habitus and chronically ill appearing Head: Present atraumatic and normocephalic ENT: Present normal exam Comment:: hirsutism Neck: Present normal inspection Respiratory: Present prolonged expiratory phase and diminished air movement; Absent rhonchi, wheezes or crackles Cardiac: Present Reg Rate and Rhythm GI: Present soft and normal bowel sounds; Absent distention or tenderness Extremities: Present normal inspection and full ROM; Absent edema Skin: Present intact; Absent erythema Neuro: Present Grossly Intact, alert, awake and moves all extremities; Absent oriented x 3 Assessment and Plan *Assessment and plan (1) Acute hypoxic on chronic hypercapnic respiratory failure: Status: Acute Category: Medical Code(s): J96.01 - Acute respiratory failure with hypoxia; J96.12 - Chronic respiratory failure with hypercapnia (2) (HFpEF) heart failure with preserved ejection fraction: Status: Acute Qualifiers: Heart failure chronicity: unspecified Qualified Code(s): I50.30 - Unspecified diastolic (congestive) heart failure Category: Medical Code(s): I50.30 - Unspecified diastolic (congestive) heart failure (3) Chronic anemia: Status: Acute Category: Medical Code(s): D64.9 - Anemia, unspecified (4) Emphysema lung: Status: Acute Qualifiers: Emphysema type: panlobular Qualified Code(s): J43.1 - Panlobular emphysema Category: Medical Code(s): J43.9 - Emphysema, unspecified (5) Cor pulmonale: Status: Acute Category: Medical Code(s): I27.81 - Cor pulmonale (chronic) (6) Declining functional status: Status: Acute Category: Medical Code(s): R53.81 - Other malaise (7) REYMUNDO (obstructive sleep apnea): Status: Suspected Category: Medical Code(s): G47.33 - Obstructive sleep apnea (adult) (pediatric) (8) Seizure disorder: Status: Acute Category: Medical Code(s): G40.909 - Epilepsy, unspecified, not intractable, without status epilepticus (9) Intellectual disability with epilepsy: Status: Acute Category: Medical Code(s): F79 - Unspecified intellectual disabilities; G40.909 - Epilepsy, unspecified, not intractable, without status epilepticus Plan 53-year-old female with extensive smoking history, emphysema, REYMUNDO, presented to the ER with worsening confusion and respiratory failure. Initially admitted to on-call primary care service for respiratory failure. Transition to hospitalist service this morning. I agreed to admit her to our service and take over care. Discussed case with pulmonology this morning after consulting them for assistance with BiPAP and respiratory failure management. Patient found to have hypercapnic respiratory failure acute on chronic combined with acute on chronic heart failure preserved ejection fraction. Altered mentation initially on morning rounds. Showed improvement with adjustments to BiPAP. Necessitating inpatient care. Wore by half again last night, at baseline mentation this morning. Overall doing well. Stable to discharge to rehab when approved. Patient amenable to rehab at this time. Necessitating continued skilled care, unable to go home safely. Problems addressed as follows: Acute on chronic hypercapnic and hypoxic respiratory failure -Blood gas compensated on presentation with pH of 7.36 with pCO2 of 76. Wearing BiPAP nightly. Responding well. -Discussed case with pulmonology today, appreciate their recommendations. Recommend continuing incentive spirometry with flutter valve, continue supplemental oxygen as needed for goal sats greater 90%, on 1 L currently. -BiPAP overnight while asleep, settings of 03/22 with rate of 22 and FiO2 of 30%. -DuoNebs every 6 hours scheduled and Pulmicort every 12 hours scheduled -White cell count remains normal at 9.1 today, no respiratory distress. -Wean steroids to 40 mg prednisone x 5 days total. -I have ordered repeat CBC, CMP, magnesium for the morning -Will pursue outpatient sleep study and overnight pulse oximetry. Acute on chronic heart failure with preserved ejection fraction -BNP elevated at 4000 on presentation, diuresing well, -2 L since admission. -Cardiology consulted, appreciate their assistance in care. Echo in September with EF preserved and RVSP greater than 60 -Continue diuresis, Bumex 1 mg daily along with spironolactone 25 mg daily. -Was monitoring electrolytes and kidney function with diuresis. BUN 23, creatinine 0.6. -Good response with urine output, negative fluid status today. Seizure disorder: Continue divalproex 500 mg 3 times a day Continue Wellbutrin 300 mg daily for mood disorder Continue Klonopin 0.5 mg twice daily as needed, caution in the setting of possible oversedation Continue Lexapro 10 mg daily for mood Holding gabapentin 300 mg at this time due to the risk for oversedation; Holding trazodone nightly for same reason Polypharmacy at home, high risk for medication side effects Therapy evaluating patient, may necessitate placement. Full code Prophylactic Lovenox Regular diet
--- NOTE | 2024-01-19 18:10 | PC.NURSE ---
Pt is A&Ox2. She is currently on 2L O2 NC. Bipap has been off since 851. Has c/o discomfort to her head and stomach this AM but denies any this afternoon. Appetite is good. Continues to be incontinent of Bowel and bladder. Purewick is in place along with a brief.Urine is dark. Has had 2 BM's this shift. DTI to coccyx. DSG in place. Family has visited with pt. Call light within reach. Safety measures in place.
--- NOTE | 2024-01-19 18:43 | PC.NURSE ---
RESP CARE NOTE: ROOM AIR SAT 88% PT PLACED ON 1L NC AND CAME UP TO 93%
[2024-01-19] MEDS: PANTOPRAZOLE 40MG VIAL 40 MG IV (20:30)
[2024-01-19] MEDS: ENOXAPARIN 40MG/0.4ML SYRINGE 40 MG SQ (20:30)
[2024-01-19] MEDS: SODIUM CHLORIDE 0.9% 10ML FLUSH SYRINGE 10 ML IV (20:30)
[2024-01-20] VITALS (9 sets, daily range): BP systolic 142–161; BP diastolic 72–96; PULSE 64–83; RESP 14–22; TEMP 36.5–36.7; O2SAT 90–99; BMI 26.6; BMI 27.0
--- NOTE | 2024-01-20 04:56 | PC.NURSE ---
PATIENT RESTING IN BED WITH HOB ELEVATED 35 DEGREES. TURNS Q 2 HRS WITH ASSIST X1. PUREWICK IN USE DUE TO INCONTINENCE. MEPILEX DRSG C/D/I TO DTI AT [facility]. HAS NOT USED BIPAP TONIGHT REQUESTED. TO HAVE VBG THIS AM TO DETERMINE NEED FOR BIPAP AT HOME? 02 SATS LOW 90s. VITALS STABLE. NO FEVERS. SINUS ARRHYTHMIA NOTED ON TELEMETRY. VOICES SOME ANXIETY ABOUT GOING TO A [facility].
[2024-01-20] MEDS: CALCIUM CARBONATE 500MG CHEWTAB 500 MG PO (05:14)
[2024-01-20] MEDS: clonazePAM 0.5MG TABLET 0.5 MG PO (05:14)
[2024-01-20 06:19] LABS: Chloride 94 mmol/L (98-107); Potassium 3.6 mmoL/L (3.5-5.1); Sodium 137 mmol/L (136-145)
[2024-01-20 06:22] LABS: Alanine Aminotransferase 6 U/L (12-78); Albumin/Globulin Ratio 0.9 (1.1-1.8); Alkaline Phosphatase 75 U/L (38-126); Aspartate Amino Transferase 18 U/L (14-36); Basophils % 0.4 % (0.1-2.0); Bilirubin,Total 0.2 mg/dl (0.2-1.3); Blood Urea Nitrogen 27 mg/dl (7-17); Creatinine Clearance Estimated 126 mL/min (50-200); Eosinophils % 0.1 % (0.1-12.0); Estimated Glomerular Filt Rate 105 ml/min (>60); GFR (African American) 127 ML/MIN (>60); Globulin 3.5 g/dL (1.3-3.2); Hematocrit 36.7 % (37.0-47.0); Lymphocytes # 2.7 K/mm3 (0.7-4.5); Lymphocytes % 28.6 % (10-50); Mean Corpuscular HGB Conc 29.9 g/dL (31.8-35.4); Mean Corpuscular Hemoglobin 24.6 pg (27.0-31.2); Mean Corpuscular Volume 82.2 fl (81-99); Mean Platelet Volume 8.4 fl (7.4-10.4); Monocytes # 0.6 K/mm3 (0.1-1.0); Monocytes % 6.3 % (1.7-9.3); Neutrophils # 6.2 K/mm3 (1.8-7.8); Neutrophils % 64.6 % (37.0-80.0); Platelet Count 274 K/mm3 (142-424); Red Blood Count 4.46 M/mm3 (4.20-5.40); Red Cell Distribution Width 17.4 % (11.5-17.5); Total Protein,Serum 6.5 g/dl (6.3-8.2); White Blood Count 9.5 K/mm3 (4.8-10.8)
[2024-01-20 06:23] LABS: Calcium 8.2 mg/dl (8.4-10.2); Glucose 85 mg/dl (74-100)
[2024-01-20 06:28] LABS: Magnesium 1.9 mg/dl (1.6-2.3)
[2024-01-20 06:30] LABS: Anion Gap 5.6 mEq/L (5-15); Carbon Dioxide 41 mmol/L (22.0-30.0)
[2024-01-20] MEDS: BUDESONIDE 0.5MG/2ML NEB 0.5 MG IH ×2 (06:30→18:16)
[2024-01-20] MEDS: IPRATROPIUM/ALBUTEROL 3 ML NEB IH ×3 (06:30→18:16)
[2024-01-20 07:19] LABS: Lactate Venous 1.2 mmol/L (0.4-2.0); VBG Base Excess 9.8 mmol/L (-2.4-2.3); VBG HCO3 33.2 mmol/L (23-30); VBG Oxygen Saturation 86.5 % (50-70); VBG PCO2 44.8 mmol/L (35-51); VBG PH 7.49 mmol/L (7.31-7.41); VBG PO2 48.8 mmol/L (28-40); VBG Total CO2 34.6 mmol/L (23-27)
[2024-01-20] MEDS: FUROSEMIDE 20MG TABLET 20 MG PO (09:09)
[2024-01-20] MEDS: DIVALPROEX 500MG (Delayed-Release) TABLET 500 MG PO ×3 (09:09→22:59)
[2024-01-20] MEDS: predniSONE 20MG TAB 40 MG PO (09:09)
[2024-01-20] MEDS: EMPAGLIFLOZIN 10MG TABLET 10 MG PO (09:09)
[2024-01-20] MEDS: SPIRONOLACTONE 25MG TABLET 25 MG PO (09:09)
[2024-01-20] MEDS: CITALOPRAM 20MG TABLET 20 MG PO (09:09)
[2024-01-20] MEDS: buPROPion HCl SR 150MG TAB 300 MG PO (09:10)
--- NOTE | 2024-01-20 09:33 | EXP.PULM.PN ---
Subjective *Date: 01/20/24 *Time: 11:53 Interval history: No acute respiratory events overnight. Patient admits significant improvement in her respiratory symptoms. Pulmonology Exam Inpatient Vital signs and Labs for Last 24 Hours: Temp Pulse Resp BP Pulse Ox O2 Del Method O2 Flow Rate 97.9 F 70 17 150/76 H 91 L Nasal Cannula 1 01/20/24 08:00 01/20/24 08:00 01/20/24 08:00 01/20/24 08:00 01/20/24 08:00 01/20/24 08:16 01/20/24 08:16 FiO2 30 01/19/24 06:42 Laboratory Results - last 24 hr 01/20/24 05:17: WBC 9.5, RBC 4.46, Hgb 11.0 L, Hct 36.7 L, MCV 82.2, MCH 24.6 L, MCHC 29.9 L, RDW 17.4, Plt Count 274 D, MPV 8.4, Neut % (Auto) 64.6, Lymph % (Auto) 28.6, [place] % (Auto) 6.3, Eos % (Auto) 0.1, Baso % (Auto) 0.4, Neut # (Auto) 6.2, Lymph # (Auto) 2.7, [place] # (Auto) 0.6, Eos # (Auto) 0.0, Baso # (Auto) 0.0, Sodium 137, Potassium 3.6, Chloride 94 L, Carbon Dioxide 41 H*, Anion Gap 5.6, BUN 27 H, Creatinine 0.60, Estimated Creat Clear 126, Estimated GFR 105, Est GFR ( Amer) 127, Glucose 85, Calcium 8.2 L, Magnesium 1.9, Total Bilirubin 0.2, AST 18 D, ALT 6 L D, Alkaline Phosphatase 75, Total Protein 6.5, Albumin 3.0 L, Globulin 3.5 H, Albumin/Globulin Ratio 0.9 L 01/20/24 07:00: VBG pH 7.49 H, VBG pCO2 44.8, VBG pO2 48.8 H, VBG HCO3 33.2 H, VBG Total CO2 34.6 H, VBG O2 Saturation 86.5 H, VBG Base Excess 9.8 H, VBG Lactic Acid 1.2 Temp Pulse Resp BP Pulse Ox O2 Del Method O2 Flow Rate 97.8 F 79 16 147/85 H 98 BiPAP 4 01/18/24 08:00 01/18/24 08:00 01/18/24 08:00 01/18/24 08:00 01/18/24 08:00 01/18/24 08:00 01/18/24 00:21 FiO2 30 01/18/24 09:46 Laboratory Results - last 24 hr 01/17/24 18:46: WBC 7.5, RBC 4.17 L, Hgb 10.4 L, Hct 34.7 L, MCV 83.1, MCH 24.9 L, MCHC 29.9 L, RDW 17.3, Plt Count 239, MPV 8.2, Neut % (Auto) 73.9, Lymph % (Auto) 18.9, [place] % (Auto) 5.9, Eos % (Auto) 0.8, Baso % (Auto) 0.5, Neut # (Auto) 5.5, Lymph # (Auto) 1.4, [place] # (Auto) 0.4, Eos # (Auto) 0.1, Baso # (Auto) 0.0, Sodium 138, Potassium 4.9, Chloride 94 L, Carbon Dioxide 42 H*, Anion Gap 6.9, BUN 27 H, Creatinine 0.60, Estimated Creat Clear 116, Estimated GFR 105, Est GFR ( Amer) 127, Glucose 80, Calcium 7.9 L, Phosphorus 5.0 H, Magnesium 2.0, Total Bilirubin 0.2, AST 25, ALT 6 L, Alkaline Phosphatase 62, Troponin I 0.06 H, Total Protein 6.6, Albumin 3.0 L, Globulin 3.6 H, Albumin/Globulin Ratio 0.8 L, Urine Color Yellow, Urine Appearance Clear, Urine pH 6.0, Ur Specific [place] 1.025, Urine Protein Negative, Urine Glucose (UA) 2+, Urine Ketones Negative, Urine Blood Trace-i, Urine Nitrate Negative, Urine Bilirubin Negative, Urine Urobilinogen 0.2, Ur Leukocyte Esterase Negative, Urine RBC 3-5, Urine WBC Occasional, Ur Squamous Epith Cells 10-20, Urine Bacteria Trace, Urine Yeast 1+ 01/17/24 18:48: VBG pH 7.34, VBG pCO2 70.3 H, VBG pO2 108.2 H, VBG HCO3 36.8 H, VBG Total CO2 39.0 H, VBG O2 Saturation 97.9 H, VBG Base Excess 11.0 H, VBG Lactic Acid 1.3 01/17/24 21:48: Troponin I 0.08 H 01/18/24 00:12: Troponin I 0.08 H 01/18/24 08:45: Specimen Source Right radial, O2 % 50, ABG pH 7.27 L, ABG pCO2 100.2 H, ABG pO2 105.8 H, ABG HCO3 44.6 H, ABG Total CO2 47.6 H, ABG O2 Saturation 97, ABG Base Excess 17.6 H, Bowen Test Acceptable, Vent Rate 16, PEEP Bipap 20/10 I & O for Labs for Last 24 Hours: Intake & Output 01/17/24 01/18/24 01/19/24 01/20/24 23:59 23:59 23:59 23:59 Intake Total 580 / 580 840 / 1280 440 / 440 Output Total 1700 / 1700 1150 / 1150 400 / 400 Balance -1120 / -1120 -310 / 130 40 / 40 Weight 150 lb 162 lb 11.218 oz 162 lb 1 oz 160 lb 2 oz Intake & Output 01/15/24 01/16/24 01/17/24 01/18/24 23:59 23:59 23:59 23:59 Intake Total 240 / 240 Output Total 0 / 0 Balance 240 / 240 Weight 150 lb 162 lb 11.218 oz Constitutional: Present moderate distress Head: Present normocephalic and atraumatic ENT: Present normal exam, normal oropharynx and mucous membranes moist Neck: Present normal inspection and full ROM Respiratory: Present prolonged expiratory phase, respiratory distress and diminished air movement; Absent wheezes, crackles or able to speak in complete sentences Cardiac: Present S1/S2, Tachycardia and radial pulses present GI: Present soft and distention; Absent tenderness or guarding Rectal (female): Present deferred (female): Present deferred Skin: Present intact; Absent cyanosis or jaundice Neuro: Present alert and awake Extremities: Present normal inspection; Absent clubbing or cyanosis Assessment and Plan *Assessment and plan (1) Acute exacerbation of chronic obstructive pulmonary disease: Status: Acute Category: Medical Code(s): J44.1 - Chronic obstructive pulmonary disease with (acute) exacerbation (2) Acute respiratory failure with hypoxia and hypercapnia: Status: Resolved Category: Medical Code(s): J96.01 - Acute respiratory failure with hypoxia; J96.02 - Acute respiratory failure with hypercapnia Plan Ms. Ardon is a 53-year-old female greater than [id number] smoking history emphysema recently generously inhaler workup no symptoms or respiratory distress, bilateral pleural effusions, multiple admissions for hypercarbic respiratory failure presented to the ER with worsening respiratory's hypercarbic respiratory failure needing noninvasive ventilator therapy and pulmonary was called for further evaluation and management. Echo September 2023: Normal LV systolic and diastolic dysfunction. RV normal size with contractility. RVSP greater than [address] chest without contrast bilateral pleural effusions right greater than left with adjacent atelectasis. Afebrile. Hemodynamically stable. No evidence of leukocytosis. On initial examination patient arousing to verbal stimuli. Not appropriately responding to commands. Repeat VBG from this morning continue to show hypercarbic respiratory failure. Concern for polypharmacy of medications reviewed by primary team. Interval update: No acute respiratory vents overnight. Off BiPAP yesterday night. ABG this morning did not show any evidence of hypercarbic respiratory failure. Showed respiratory alkalosis. Oxygen, is currently needing 1 to 2 L to maintain O2 saturation below 90% and I will recommend to continue to wean as tolerated with a sat goal of 90 to 95% Plan: Incentive spirometry and flutter valve Continue oxygen supplementation to maintain O2 saturation goal of 90% above. Continue oxygen supplementation as needed to maintain O2 saturation goal of 90 to 95%. Wean as tolerated. DuoNebs every 6 hours along with Pulmicort every 12 scheduled. Can be discharged home on Breztri inhaler which is her home medication. Continue Prednisone 40 mg daily x 5 days Will hold off on initiating antibiotics at this point of time # Thank you for involving pulmonary in this patient care. Will follow the patient in pulmonary clinic 2 weeks post discharge with a repeat ABG prior to clinic visit
--- NOTE | 2024-01-20 16:54 | PC.NURSE ---
PT IS RESTING IN BED. ALERT TO SELF ONLY. PT WILL FOLLOW COMMANDS. EATING AND DRINKING WELL. TOLERATED SITTING UP IN THE CHAIR FOR A FEW HOURS THIS SHIFT. AMBULATED A FEW STEPS IN THE MAX. DRESSING NOTED TO COCCYX. O2 SATURATION HAS MAINTAINED 90-93% ON 1 L NC. LUNG SOUNDS HAVE SCATTERED WHEEZES WITH BILATERAL CRACKLES (BASES). ABDOMEN SOFT/NON TENDER WITH ACTIVE BOWEL SOUNDS. WILL CONTINUE TO MONITOR.
--- NOTE | 2024-01-20 17:33 | EXP.ACUTE.PN ---
Subjective *Date: 01/20/24 *Time: 17:33 Interval history: Patient did well overnight on BiPAP. Blood gas this morning shows mild alkalosis due to improvement in her pCO2. Alert and oriented at baseline on exam. Working with therapy. Tolerating p.o. intake. Afebrile. On 1 L oxygen on morning rounds Medical Exam Vital signs and Labs for Last 24 Hours: Vital Signs Temp Pulse Pulse Resp BP Pulse Ox O2 Del Method 01/20/24 16:35 Nasal Cannula 01/20/24 16:00 65 01/20/24 16:00 98.0 F 83 17 156/92 H 92 L Nasal Cannula 01/20/24 16:00 Nasal Cannula 01/20/24 14:41 Nasal Cannula 01/20/24 13:00 Nasal Cannula 01/20/24 11:53 97.8 F 69 18 153/91 H 90 L Room Air 01/20/24 11:13 65 01/20/24 11:13 65 01/20/24 11:13 99 Nasal Cannula 01/20/24 11:00 Nasal Cannula 01/20/24 08:16 Nasal Cannula 01/20/24 08:00 Nasal Cannula 01/20/24 08:00 70 01/20/24 08:00 97.9 F 70 17 150/76 H 91 L Room Air 01/20/24 07:59 Nasal Cannula 01/20/24 06:35 Nasal Cannula 01/20/24 06:30 65 01/20/24 06:30 66 01/20/24 06:30 93 L Nasal Cannula 01/20/24 05:00 Nasal Cannula 01/20/24 04:00 98.0 F 69 22 161/96 H 90 L Nasal Cannula 01/20/24 04:00 67 01/20/24 03:00 Nasal Cannula 01/20/24 01:00 Nasal Cannula 01/20/24 00:00 97.7 F 64 14 156/85 H 91 L Nasal Cannula 01/20/24 00:00 69 01/19/24 23:40 62 01/19/24 23:40 66 01/19/24 23:00 Nasal Cannula 01/19/24 21:00 Nasal Cannula 01/19/24 20:00 97.9 F 67 13 133/76 93 L Nasal Cannula 01/19/24 20:00 93 L Nasal Cannula 01/19/24 20:00 77 01/19/24 18:44 93 L Nasal Cannula 01/19/24 18:33 74 01/19/24 18:33 72 01/19/24 18:33 96 Nasal Cannula O2 Flow Rate 01/20/24 16:35 1 01/20/24 16:00 01/20/24 16:00 2 01/20/24 16:00 1 01/20/24 14:41 1 01/20/24 13:00 1 01/20/24 11:53 01/20/24 11:13 01/20/24 11:13 01/20/24 11:13 2 01/20/24 11:00 1 01/20/24 08:16 1 01/20/24 08:00 1 01/20/24 08:00 01/20/24 08:00 01/20/24 07:59 1 01/20/24 06:35 2 01/20/24 06:30 01/20/24 06:30 01/20/24 06:30 1 01/20/24 05:00 2 01/20/24 04:00 2 01/20/24 04:00 01/20/24 03:00 2 01/20/24 01:00 2 01/20/24 00:00 2 01/20/24 00:00 01/19/24 23:40 01/19/24 23:40 01/19/24 23:00 2 01/19/24 21:00 2 01/19/24 20:00 2 01/19/24 20:00 2 01/19/24 20:00 01/19/24 18:44 1 01/19/24 18:33 01/19/24 18:33 01/19/24 18:33 3 Intake and Output 01/20/24 01/20/24 01/20/24 07:59 15:59 23:59 Intake Total 440 / 1400 960 / 1400 Output Total 400 / 400 0 / 400 Balance 40 / 1000 960 / 1000 Intake: Intake, Oral Amount 440 / 1400 960 / 1400 Output: Output, Urine Amount 400 / 400 0 / 400 Other: Number of Unmeasured Voids 1 1 Number of Bowel Movements 1 Weight 72.631 kg 72.63 kg Patient Weight 01/20/24 23:59 Weight 72.63 kg Laboratory Results - last 24 hr 01/20/24 05:17: WBC 9.5, RBC 4.46, Hgb 11.0 L, Hct 36.7 L, MCV 82.2, MCH 24.6 L, MCHC 29.9 L, RDW 17.4, Plt Count 274 D, MPV 8.4, Neut % (Auto) 64.6, Lymph % (Auto) 28.6, [place] % (Auto) 6.3, Eos % (Auto) 0.1, Baso % (Auto) 0.4, Neut # (Auto) 6.2, Lymph # (Auto) 2.7, [place] # (Auto) 0.6, Eos # (Auto) 0.0, Baso # (Auto) 0.0, Sodium 137, Potassium 3.6, Chloride 94 L, Carbon Dioxide 41 H*, Anion Gap 5.6, BUN 27 H, Creatinine 0.60, Estimated Creat Clear 126, Estimated GFR 105, Est GFR ( Amer) 127, Glucose 85, Calcium 8.2 L, Magnesium 1.9, Total Bilirubin 0.2, AST 18 D, ALT 6 L D, Alkaline Phosphatase 75, Total Protein 6.5, Albumin 3.0 L, Globulin 3.5 H, Albumin/Globulin Ratio 0.9 L 01/20/24 07:00: VBG pH 7.49 H, VBG pCO2 44.8, VBG pO2 48.8 H, VBG HCO3 33.2 H, VBG Total CO2 34.6 H, VBG O2 Saturation 86.5 H, VBG Base Excess 9.8 H, VBG Lactic Acid 1.2 I & O for Labs for Last 24 Hours: Intake & Output 01/17/24 01/18/24 01/19/24 01/20/24 23:59 23:59 23:59 23:59 Intake Total 580 / 580 840 / 1280 1400 / 1400 Output Total 1700 / 1700 1150 / 1150 400 / 400 Balance -1120 / -1120 -310 / 130 1000 / 1000 Weight 68.039 kg 73.8 kg 73.51 kg 72.63 kg Constitutional: Present no acute distress, average body habitus and chronically ill appearing Head: Present atraumatic and normocephalic ENT: Present normal exam Comment:: hirsutism Neck: Present normal inspection Respiratory: Present prolonged expiratory phase and diminished air movement; Absent rhonchi, wheezes or crackles Cardiac: Present Reg Rate and Rhythm GI: Present soft and normal bowel sounds; Absent distention or tenderness Extremities: Present normal inspection and full ROM; Absent edema Skin: Present intact; Absent erythema Neuro: Present Grossly Intact, alert, awake and moves all extremities; Absent oriented x 3 Assessment and Plan *Assessment and plan (1) Acute hypoxic on chronic hypercapnic respiratory failure: Status: Acute Category: Medical Code(s): J96.01 - Acute respiratory failure with hypoxia; J96.12 - Chronic respiratory failure with hypercapnia (2) (HFpEF) heart failure with preserved ejection fraction: Status: Acute Qualifiers: Heart failure chronicity: unspecified Qualified Code(s): I50.30 - Unspecified diastolic (congestive) heart failure Category: Medical Code(s): I50.30 - Unspecified diastolic (congestive) heart failure (3) Chronic anemia: Status: Acute Category: Medical Code(s): D64.9 - Anemia, unspecified (4) Emphysema lung: Status: Acute Qualifiers: Emphysema type: panlobular Qualified Code(s): J43.1 - Panlobular emphysema Category: Medical Code(s): J43.9 - Emphysema, unspecified (5) Cor pulmonale: Status: Acute Category: Medical Code(s): I27.81 - Cor pulmonale (chronic) (6) Declining functional status: Status: Acute Category: Medical Code(s): R53.81 - Other malaise (7) REYMUNDO (obstructive sleep apnea): Status: Suspected Category: Medical Code(s): G47.33 - Obstructive sleep apnea (adult) (pediatric) (8) Seizure disorder: Status: Acute Category: Medical Code(s): G40.909 - Epilepsy, unspecified, not intractable, without status epilepticus (9) Intellectual disability with epilepsy: Status: Acute Category: Medical Code(s): F79 - Unspecified intellectual disabilities; G40.909 - Epilepsy, unspecified, not intractable, without status epilepticus Plan 53-year-old female with extensive smoking history, emphysema, REMYUNDO, presented to the ER with worsening confusion and respiratory failure. Initially admitted to on-call primary care service for respiratory failure. Transition to hospitalist service this morning. I agreed to admit her to our service and take over care. Discussed case with pulmonology this morning after consulting them for assistance with BiPAP and respiratory failure management. Patient found to have hypercapnic respiratory failure acute on chronic combined with acute on chronic heart failure preserved ejection fraction. Altered mentation initially on morning rounds. Showed improvement with adjustments to BiPAP. Necessitating inpatient care. BiPAP morning and last night, mentation at baseline this morning. Blood gas showed improvement on VBG with pH of 7.49, pCO2 of 44.8, improved from 70. O2 sats above 90 on 1 L oxygen this morning. Overall doing well. Awaiting possible rehab placement versus home with home health pending patient's progress over the next 24 hours and acceptance by nursing facility. Continues to necessitate inpatient management. Problems addressed as follows: Acute on chronic hypercapnic and hypoxic respiratory failure -Blood gas compensated on presentation with pH of 7.36 with pCO2 of 76 on admission. Repeat this morning showing mild metabolic alkalosis as pCO2 gets corrected. -Discussed case with pulmonology today, appreciate their recommendations. Recommend continuing incentive spirometry with flutter valve, continue supplemental oxygen as needed for goal sats greater 90%, on 1 L currently. -BiPAP nightly while asleep, settings of 03/22 with rate of 22 and FiO2 of 30%. -DuoNebs every 6 hours scheduled and Pulmicort every 12 hours scheduled -White cell count remains normal at 9.5 today, no respiratory distress. -40 mg prednisone x 5 days total. -I have ordered repeat CBC, CMP, magnesium for the morning -Completed sleep study 1 month ago, appears patient has not returned equipment to be evaluated. Encouraging family to return sleep study devices. Acute on chronic heart failure with preserved ejection fraction -BNP elevated at 4000 on presentation, diuresing well, negative >2 L since admission. -Cardiology consulted, appreciate their assistance in care. Echo in September with EF preserved and RVSP greater than 60 -Continue diuresis, Bumex 1 mg daily along with spironolactone 25 mg daily. -monitoring electrolytes and kidney function with diuresis. BUN 27, creatinine 0.6. -Good response with urine output, negative fluid status today. Seizure disorder: Continue divalproex 500 mg 3 times a day Continue Wellbutrin 300 mg daily for mood disorder Continue Klonopin 0.5 mg twice daily as needed, caution in the setting of possible oversedation Continue Lexapro 10 mg daily for mood Holding gabapentin 300 mg at this time due to the risk for oversedation; Holding trazodone nightly for same reason Polypharmacy at home, high risk for medication side effects Therapy evaluating patient, may necessitate placement. Full code Prophylactic Lovenox Regular diet
--- NOTE | 2024-01-20 19:00 | PC.NURSE ---
RESP CARE NOTE: ROOM AIR SAT- 87% PT PLACED BACK ON 1L NC AND RETURNED TO 93%
[2024-01-20] MEDS: PANTOPRAZOLE 40MG TABLET 40 MG PO (22:59)
[2024-01-20] MEDS: ENOXAPARIN 40MG/0.4ML SYRINGE 40 MG SQ (22:59)
[2024-01-21] VITALS (9 sets, daily range): BP systolic 155–189; BP diastolic 81–114; PULSE 60–79; RESP 16–20; TEMP 36.6–37; O2SAT 91–98; BMI 26.6
[2024-01-21] MEDS: IPRATROPIUM/ALBUTEROL 3 ML NEB IH ×3 (00:24→11:22)
[2024-01-21] MEDS: METOPROLOL TARTRATE 5MG/5ML VIAL 5 MG IV (06:28)
--- NOTE | 2024-01-21 06:53 | PC.NURSE ---
pt has remained on 1l/nc, pt hypertensive. bp increased to 189/114 provider made aware. new order received for lopressor 5 mg, dose given, nsr on monitor
[2024-01-21] MEDS: BUDESONIDE 0.5MG/2ML NEB 0.5 MG IH (06:56)
[2024-01-21 08:21] LABS: Basophils # 0.1 K/mm3 (0-0.2); Basophils % 0.6 % (0.1-2.0); Eosinophils % 0.2 % (0.1-12.0); Hematocrit 38.1 % (37.0-47.0); Hemoglobin 11.3 g/dL (12.2-16.2); Lymphocytes # 2.9 K/mm3 (0.7-4.5); Lymphocytes % 34.9 % (10-50); Mean Corpuscular HGB Conc 29.6 g/dL (31.8-35.4); Mean Corpuscular Hemoglobin 24.7 pg (27.0-31.2); Mean Corpuscular Volume 83.4 fl (81-99); Monocytes # 0.5 K/mm3 (0.1-1.0); Monocytes % 6.2 % (1.7-9.3); Neutrophils # 4.9 K/mm3 (1.8-7.8); Neutrophils % 58.1 % (37.0-80.0); Platelet Count 272 K/mm3 (142-424); Red Blood Count 4.57 M/mm3 (4.20-5.40); Red Cell Distribution Width 17.9 % (11.5-17.5); White Blood Count 8.4 K/mm3 (4.8-10.8)
[2024-01-21 08:30] LABS: Chloride 99 mmol/L (98-107); Potassium 3.6 mmoL/L (3.5-5.1); Sodium 138 mmol/L (136-145)
[2024-01-21 08:32] LABS: Alanine Aminotransferase 6 U/L (12-78); Aspartate Amino Transferase 20 U/L (14-36); Blood Urea Nitrogen 27 mg/dl (7-17); Creatinine Clearance Estimated 107 mL/min (50-200); Estimated Glomerular Filt Rate 88 ml/min (>60); GFR (African American) 106 ML/MIN (>60)
[2024-01-21] MEDS: CITALOPRAM 20MG TABLET 20 MG PO (08:32)
[2024-01-21] MEDS: EMPAGLIFLOZIN 10MG TABLET 10 MG PO (08:32)
[2024-01-21] MEDS: DIVALPROEX 500MG (Delayed-Release) TABLET 500 MG PO ×2 (08:32→12:46)
[2024-01-21] MEDS: SPIRONOLACTONE 25MG TABLET 25 MG PO (08:32)
[2024-01-21] MEDS: predniSONE 20MG TAB 40 MG PO (08:32)
[2024-01-21 08:33] LABS: Albumin Level 3.1 g/dl (3.5-5.0); Albumin/Globulin Ratio 0.9 (1.1-1.8); Alkaline Phosphatase 74 U/L (38-126); Anion Gap 6.6 mEq/L (5-15); Bilirubin,Total 0.4 mg/dl (0.2-1.3); Calcium 8.2 mg/dl (8.4-10.2); Carbon Dioxide 36 mmol/L (22.0-30.0); Globulin 3.4 g/dL (1.3-3.2); Glucose 79 mg/dl (74-100); Total Protein,Serum 6.5 g/dl (6.3-8.2)
[2024-01-21] MEDS: buPROPion HCl SR 150MG TAB 300 MG PO (08:33)
[2024-01-21] MEDS: IRBESARTAN 75MG TABLET 37.5 MG PO (08:35)
[2024-01-21] MEDS: FUROSEMIDE 20MG TABLET 40 MG PO (08:35)
[2024-01-21 09:32] LABS: Magnesium 1.9 mg/dl (1.6-2.3)
--- NOTE | 2024-01-21 12:21 | P.DS_ITS ---
General Admission date:: 01/17/24 Discharge date: 01/21/24 HPI HPI HPI: Ms. Sy is a 53-year-old female with intellectual disability, seizure disorder, polypharmacy, chronic respiratory failure, chronic diastolic heart failure. Presented to the ER because of progressing decline. Increased somnolence over the past 1 to 2 days. Patient more weak and unable to participate in ADLs. Lives with her sister who helps care for her. Provided majority of history. Sister reports patient has been falling frequently. She has been able to walk consistently necessitating 1-2 people to help her get around. Denies any fever, chest pain, nausea or vomiting. Most recent fall was 3 days ago. Imaging in the ER showed no acute fractures. Was found to be more short of breath and had increased oxygen requirement in the ER. VBG showed compensated respiratory acidosis with pCO2 greater than 70. On-call primary care service initially consulted for admission and accepted patient. Patient was initiated on BiPAP overnight due to concern for increased respiratory distress and worsening confusion. No further interventions. No antibiotics due to low concern for pneumonia. Patient necessitating evaluation for possible placement and treatment for her heart failure and respiratory failure. On my evaluation this morning, patient was frankly altered and agitated. Awake and alert but not oriented to self or place. Showed worsening blood gas on initial evaluation. Unable to give any additional history. Hospital Course Hospital Course Hospital Course: 53-year-old female with extensive smoking history, emphysema, REYMUNDO, presented to the ER with worsening confusion and respiratory failure. Initially admitted to on-call primary care service for respiratory failure. Transition to hospitalist service this morning. I agreed to admit her to our service and take over care. Discussed case with pulmonology this morning after consulting them for assistance with BiPAP and respiratory failure management. Patient found to have hypercapnic respiratory failure acute on chronic combined with acute on chronic heart failure preserved ejection fraction. Altered mentation initially on morning rounds. Showed improvement with adjustments to BiPAP. Symptoms defervesced. Wore BiPAP overnight. Would benefit from home CPAP/BiPAP for sleep apnea. Recently did sleep study, awaiting results so device can be ordered. Patient overall did well with improvement in mentation improving level of function. Stable to discharge home with sister. Awaiting possible placement for rehab. Case management assisted with this component of care. Given her clinical stability, will discharge home for further management. Acute on chronic hypercapnic and hypoxic respiratory failure -Patient presented with compensated respiratory acidosis, presentation with pH of 7.36 with pCO2 of 76 on admission. Initiated on BiPAP during the night. Unfortunately symptoms worsened. Neurology was consulted and adjustments were made to BiPAP. She had improvement in her mentation and normalization of her blood gas. Patient weaned to nasal cannula during the day. Continue BiPAP at night. Patient in no sign of pneumonia. Treated with steroids but no indication for antibiotics. Recently perform sleep study as an outpatient approximately 1 month ago. Still does not return the equipment to be family encouraged to return sleep study device. She would benefit from overnight BiPAP. Settings tolerated during admission include BiPAP as needed white count normal on day of discharge 8. Clinically stable. Outpatient follow-up with pulmonology. Acute on chronic heart failure with preserved ejection fraction -BNP elevated at 4000 on presentation, diuresed aggressively during admission. Had good response. Cardiology was consulted and assisted with care. Echo in September with EF preserved but RVSP greater than 60. Tolerating loop diuretic and spironolactone. Will continue at discharge. Electrolytes monitored, stable at discharge. Plan for follow-up in the coming weeks. Seizure disorder: Continue divalproex 500 mg 3 times a day Continue Wellbutrin 300 mg daily for mood disorder Continue Klonopin 0.5 mg twice daily as needed, caution in the setting of possible oversedation Continue Lexapro 10 mg daily for mood Holding gabapentin 300 mg at this time due to the risk for oversedation; Holding trazodone nightly for same reason Polypharmacy at home, high risk for medication side effects. Patient would benefit from placement but has improved enough to go home with sister while awaiting placement. Discharge with family today Total time spent on discharge 35 minutes in counseling, documentation, chart review, and direct care with patient. Exam Data for Last 24 hours Vital signs and Labs for Last 24 Hours: Temp Pulse Resp BP Pulse Ox O2 Del Method O2 Flow Rate 98.2 F 74 18 180/93 H 98 Nasal Cannula 1 01/21/24 08:00 01/21/24 11:25 01/21/24 08:00 01/21/24 08:00 01/21/24 11:25 01/21/24 11:25 01/21/24 11:25 FiO2 30 01/19/24 06:42 Laboratory Results - last 24 hr 01/21/24 07:02: WBC 8.4, RBC 4.57, Hgb 11.3 L, Hct 38.1, MCV 83.4, MCH 24.7 L, MCHC 29.6 L, RDW 17.9 H, Plt Count 272, MPV 8.0, Neut % (Auto) 58.1, Lymph % (Auto) 34.9, [place] % (Auto) 6.2, Eos % (Auto) 0.2, Baso % (Auto) 0.6, Neut # (Auto) 4.9, Lymph # (Auto) 2.9, [place] # (Auto) 0.5, Eos # (Auto) 0.0, Baso # (Auto) 0.1, Sodium 138, Potassium 3.6, Chloride 99, Carbon Dioxide 36 H, Anion Gap 6.6, BUN 27 H, Creatinine 0.70, Estimated Creat Clear 107, Estimated GFR 88, Est GFR ( Amer) 106, Glucose 79, Calcium 8.2 L, Magnesium 1.9, Total Bilirubin 0.4, AST 20, ALT 6 L, Alkaline Phosphatase 74, Total Protein 6.5, Albumin 3.1 L, Globulin 3.4 H, Albumin/Globulin Ratio 0.9 L I & O for Last 24 hours: Intake & Output 01/18/24 01/19/24 01/20/24 01/21/24 23:59 23:59 23:59 23:59 Intake Total 580 / 580 840 / 1280 1640 / 1640 240 / 240 Output Total 1700 / 1700 1150 / 1150 1200 / 1200 300 / 300 Balance -1120 / -1120 -310 / 130 440 / 440 -60 / -60 Weight 73.8 kg 73.51 kg 72.63 kg 72.63 kg Constitutional Constitutional: no acute distress, average body habitus and chronically ill appearing *Routine HEENT Exam Head: Present normocephalic and atraumatic ENT: Present mucous membranes moist *Routine Neck Exam Neck: Present supple, full ROM and normal carotid upstroke; Absent JVD, carotid bruit or lymphadenopathy *Routine Respiratory Exam Respiratory: Present rhonchi, normal respiratory effort and symmetric chest movement; Absent wheezes or crackles *Routine Cardiovascular Exam Cardiovascular: Present RRR, Normal S1 and Normal S2; Absent murmur or gallop *Routine Abdominal Exam Abdominal: Present soft and normoactive bowel sounds; Absent tenderness, distended or organomegaly *Routine Rectal Exam Patient deferred: visual exam *Routine Exam Patient deferred: external exam *Routine Extremities Exam Extremities: Present full ROM, pulses intact and normal capillary refill; Absent cyanosis, clubbing or edema *Routine Skin Exam Skin: Present intact and warm; Absent erythema *Routine Neurological Exam Neurological: Present alert, oriented X3 and CN II-XII intact; Absent sensory deficit or motor deficit Comments: child like disposition Routine Psychiatric Exam Psychiatric: Absent normal affect (Flat affect) Results Data Completed and Pending Labs on day of discharge: Labs from last 24 hours 01/21/24 07:02 WBC 8.4 RBC 4.57 Hgb 11.3 L Hct 38.1 MCV 83.4 MCH 24.7 L MCHC 29.6 L RDW 17.9 H Plt Count 272 MPV 8.0 Neut % (Auto) 58.1 Lymph % (Auto) 34.9 [place] % (Auto) 6.2 Eos % (Auto) 0.2 Baso % (Auto) 0.6 Neut # (Auto) 4.9 Lymph # (Auto) 2.9 [place] # (Auto) 0.5 Eos # (Auto) 0.0 Baso # (Auto) 0.1 Sodium 138 Potassium 3.6 Chloride 99 Carbon Dioxide 36 H Anion Gap 6.6 BUN 27 H Creatinine 0.70 Estimated Creat Clear 107 Estimated GFR 88 Est GFR ( Amer) 106 Glucose 79 Calcium 8.2 L Magnesium 1.9 Total Bilirubin 0.4 AST 20 ALT 6 L Alkaline Phosphatase 74 Total Protein 6.5 Albumin 3.1 L Globulin 3.4 H Albumin/Globulin Ratio 0.9 L DS: Diagnosis Discharge Diagnosis (1) Acute hypoxic on chronic hypercapnic respiratory failure: Status: Acute Code(s): J96.01 - Acute respiratory failure with hypoxia; J96.12 - Chronic respiratory failure with hypercapnia (2) (HFpEF) heart failure with preserved ejection fraction: Status: Acute Code(s): I50.30 - Unspecified diastolic (congestive) heart failure Qualifiers: Heart failure chronicity: unspecified Qualified Code(s): I50.30 - Unspecified diastolic (congestive) heart failure (3) Chronic anemia: Status: Acute Code(s): D64.9 - Anemia, unspecified (4) Emphysema lung: Status: Acute Code(s): J43.9 - Emphysema, unspecified Qualifiers: Emphysema type: panlobular Qualified Code(s): J43.1 - Panlobular emphysema (5) Cor pulmonale: Status: Acute Code(s): I27.81 - Cor pulmonale (chronic) (6) Declining functional status: Status: Acute Code(s): R53.81 - Other malaise (7) REYMUNDO (obstructive sleep apnea): Status: Suspected Code(s): G47.33 - Obstructive sleep apnea (adult) (pediatric) (8) Seizure disorder: Status: Acute Code(s): G40.909 - Epilepsy, unspecified, not intractable, without status epilepticus (9) Intellectual disability with epilepsy: Status: Acute Code(s): F79 - Unspecified intellectual disabilities; G40.909 - Epilepsy, unspecified, not intractable, without status epilepticus Meds Home Medications and Allergies Home Medications Medication Instructions Recorded Confirmed Type Ventolin HFA 90 mcg/actuation See Rx Instructions .Route 11/07/23 01/17/24 Rx aerosol inhaler (albuterol sulfate) .COMPLEX #18 grams diclofenac sodium 1 % topical gel 2 g topical QID #100 grams 11/14/23 01/17/24 Rx (Arthritis Pain (diclofenac)) escitalopram oxalate 10 mg tablet 10 mg PO DAILY #90 tabs 11/14/23 01/17/24 Rx (Lexapro) gabapentin 300 mg capsule 300 mg PO BID 30 days #60 caps 11/14/23 01/17/24 Rx omeprazole 20 mg capsule,delayed 20 mg PO DAILY #30 caps 11/14/23 01/17/24 Rx release ipratropium 0.5 mg-albuterol 3 mg 3 ml inhalation QID PRN shortness 11/30/23 01/17/24 Rx (2.5 mg base)/3 mL nebulization of breath or wheezing 90 days #270 soln mL albuterol sulfate 90 mcg/actuation 2 puff inhalation Q4-6H PRN 12/01/23 01/17/24 Rx aerosol inhaler (Proventil HFA) shortness of breath or wheezing #8.5 grams empagliflozin 10 mg tablet 10 mg PO DAILY 90 days #90 tabs 12/28/23 01/17/24 Rx (Jardiance) ondansetron 4 mg disintegrating 4 mg PO DAILY PRN nausea and 01/06/24 01/17/24 Rx tablet vomiting #30 tabs bupropion HCl 300 mg 24 hr tablet, 300 mg PO DAILY 01/18/24 01/18/24 History extended release clonazepam 1 mg tablet 0.5 mg PO BIDP PRN Anxiety 01/18/24 01/18/24 History dextromethorphan 20 mg-quinidine 1 cap PO BID 01/18/24 01/18/24 History 10 mg capsule (Nuedexta) divalproex 500 mg tablet,delayed 500 mg PO TID 01/18/24 01/18/24 History release trazodone 100 mg tablet 100 mg PO HS 01/18/24 01/18/24 History furosemide 40 mg tablet 40 mg PO DAILY 30 days #30 tabs 01/21/24 Rx irbesartan 75 mg tablet 75 mg PO DAILY 30 days #30 tabs 01/21/24 Rx prednisone 20 mg tablet 40 mg (2 x 20 mg) PO DAILY 2 days 01/21/24 Rx #4 tabs spironolactone 25 mg tablet 25 mg PO DAILY 30 days #30 tabs 01/21/24 Rx New Prescriptions to Start Prescriptions: Dickson Mayorga irbesartan Dickson Bryant prednisone Dickson Bryant spironolactone Dickson Bryant Allergies Allergy/AdvReac Type Severity Reaction Status Date / Time nicotine AdvReac Rash Verified 01/06/24 13:39 Discharge Plan Disposition Patient Disposition: Home Health Service Condition: Fair Discharge Order Discharge Orders: Discharge Order (Routine); Ordered 01/21/24 Ordered By: Dickson Bryant Follow up Plan Follow up with: Ayesha Armenta MD [Physician] - 01/31/24 1:30 pm Prescriptions/Medication Reconciliation: New spironolactone 25 mg Tablet 25 mg PO DAILY 30 Days Qty: 30 0RF irbesartan 75 mg Tablet 75 mg PO DAILY 30 Days Qty: 30 0RF furosemide 40 mg tablet 40 mg PO DAILY 30 Days Qty: 30 0RF prednisone 20 mg Tablet 40 mg PO DAILY 2 Days Qty: 4 0RF Continued Jardiance 10 mg tablet 10 mg PO DAILY 90 Days Qty: 90 2RF gabapentin 300 mg capsule 300 mg PO BID 30 Days Qty: 60 2RF escitalopram oxalate [Lexapro] 10 mg tablet 10 mg PO DAILY Qty: 90 2RF omeprazole 20 mg capsule,delayed release(DR/EC) 20 mg PO DAILY Qty: 30 2RF diclofenac sodium [Arthritis Pain (diclofenac)] 1 % gel 2 g topical QID Qty: 100 2RF Rx Instructions: apply to single elbow, wrist or hand; for hand includes palm/fingers/back of hand ondansetron 4 mg tablet,disintegrating 4 mg PO DAILY PRN (Reason: nausea and vomiting) Qty: 30 0RF albuterol sulfate [Ventolin HFA] 90 mcg/actuation HFA aerosol inhaler See Rx Instructions .ROUTE .COMPLEX Qty: 18 0RF Dose Instruction: INHALE 1 PUFF BY MOUTH EVERY 4 TO 6 HOURS NEEDED FOR SHORTNESS OF BREATH Rx Instructions: INHALE 1 PUFF BY MOUTH EVERY 4 TO 6 HOURS NEEDED FOR SHORTNESS OF BREATH ipratropium-albuterol 0.5 mg-3 mg(2.5 mg base)/3 mL solution for nebulization 3 ml inhalation QID PRN (Reason: shortness of breath or wheezing) 90 Days Qty: 270 3RF clonazepam 1 mg tablet 0.5 mg PO BIDP PRN (Reason: Anxiety) Patient Comments: TAKE 1/2 (ONE-HALF) TABLET BY MOUTH TWICE DAILY NEEDED FOR MOOD divalproex 500 mg tablet,delayed release (DR/EC) 500 mg PO TID Patient Comments: TAKE 1 TABLET BY MOUTH THREE TIMES DAILY FOR SEIZURES trazodone 100 mg tablet 100 mg PO HS Patient Comments: TAKE 1 TABLET BY MOUTH ONCE DAILY AT BEDTIME bupropion HCl 300 mg tablet extended release 24 hr 300 mg PO DAILY Patient Comments: TAKE 1 TABLET BY MOUTH ONCE DAILY IN THE MORNING FOR DEPRESSION Nuedexta 20-10 mg capsule 1 cap PO BID Patient Comments: TAKE 1 CAPSULE BY MOUTH EVERY 12 HOURS albuterol sulfate [Proventil HFA] 90 mcg/actuation HFA aerosol inhaler 2 puff inhalation Q4-6H PRN (Reason: shortness of breath or wheezing) Qty: 8.5 0RF Discontinued furosemide [Lasix] 20 mg tablet 20 mg PO DAILY Qty: 90 3RF clonidine HCl 0.1 mg tablet 0.1 mg PO BID Qty: 180 0RF Other Ambulatory Orders: Arterial Blood Gas (Routine) Timeframe: 2 Weeks Facility: [facility] - Location: Respiratory Therapy Ordered By: Ayesha Armenta Problem Reconciliation Problems Reviewed?: Yes Patient Discharge Instructions ACTIVITY: Continue current activity DIET: continue same diet Patient Instructions: Heart-Healthy Diet, How to Prevent Falls, DI for Respiratory Failure Providers Primary Care Provider: Angeles Ling Admit Provider: Dickson Bryant Attending Provider: Dickson Bryant
== END 2024-01-21 16:43 | disposition home health service (06) | DRG 291 ==
LOC: ER 17:57 → 2ND 20:58
PROVIDERS: Internal Medicine Pulmonary Disease; Admitting Provider Internal Medicine Adolescent Medicine; Emergency Provider Student in an Organized Health Care Education/Training Program; PCP Family Medicine; Visit Provider Internal Medicine Adolescent Medicine
DX: I11.0 Hypertensive heart disease with heart failure (principal); I50.33 Acute on chronic diastolic (congestive) heart failure; J96.01 Acute respiratory failure with hypoxia; J96.02 Acute respiratory failure with hypercapnia; F17.210 Nicotine dependence, cigarettes, uncomplicated; Z79.899 Other long term (current) drug therapy; R29.6 Repeated falls; Z99.81 Dependence on supplemental oxygen; G40.909 Epilepsy, unspecified, not intractable, without status epilepticus; D64.89 Other specified anemias; J43.9 Emphysema, unspecified; G47.33 Obstructive sleep apnea (adult) (pediatric); F41.9 Anxiety disorder, unspecified; I27.20 Pulmonary hypertension, unspecified; Z86.711 Personal history of pulmonary embolism
CPT/HCPCS: 36415; 70450; 71045; 71250; 73090; 73130; 73590; 73630; 80053; 81001; 82803; 83735; 83880; 84100; 84484; 85025; 93005; 94640; 94660; 94761; 97110; 97162; 97166; 97530; 99291; J1650; J1940; J2930; J7120; J7613; J7620

== ENCOUNTER 2024-03-18 17:36 | Emergency (ER) | payer MEDICAID, SELFPAY ==
[2024-03-18 17:38] VITALS: BP 122/78; PULSE 75; RESP 13; TEMP 36.7; O2SAT 91; BMI 25.0
--- NOTE | 2024-03-18 17:54 | XR_ITS ---
PROCEDURE INFORMATION: Exam: XR Right Femur Exam date and time: 03/18/2024 6:07 PM Age: 53 years old Clinical indication: Injury or trauma; Fall; Blunt trauma; Thigh or upper leg; Right; Additional info: Fall, right groin and posterior hip pain TECHNIQUE: Imaging protocol: Radiologic exam of the right femur. Views: 2 views. COMPARISON: CR XR HIP RT 2-3V W/PELVIS 03/18/2024 6:07 PM FINDINGS: Bones/joints: No acute fracture or malalignment. Mild degenerative changes of the right hip and knee. Soft tissues: Unremarkable. IMPRESSION: No acute osseous findings.
--- NOTE | 2024-03-18 17:54 | XR_ITS ---
PROCEDURE INFORMATION: Exam: XR Right Ankle Exam date and time: 03/18/2024 6:07 PM Age: 53 years old Clinical indication: Injury or trauma; Fall; Blunt trauma; Ankle; Right; Additional info: Fall, right ankle pain TECHNIQUE: Imaging protocol: Radiologic exam of the right ankle. Views: 3 or more views. COMPARISON: CR XR TIBIA FIBULA RT 2V 03/18/2024 6:07 PM FINDINGS: Bones/joints: No acute fracture or malalignment. Soft tissues: Unremarkable. IMPRESSION: No acute osseous findings.
--- NOTE | 2024-03-18 17:54 | XR_ITS ---
PROCEDURE INFORMATION: Exam: XR Right Knee Exam date and time: 03/18/2024 6:07 PM Age: 53 years old Clinical indication: Injury or trauma; Fall; Blunt trauma; Knee; Right; Additional info: Fall, right groin and posterior hip pain TECHNIQUE: Imaging protocol: Radiologic exam of the right knee. Views: 3 views. COMPARISON: CR [id number] XR knee RT 3V 12/21/2017 9:50 PM FINDINGS: Bones/joints: No acute fracture or malalignment. Minimal osteoarthritis. Minimal joint effusion. Suprapatellar enthesopathy. Soft tissues: Unremarkable. IMPRESSION: Minimal joint effusion. No acute osseous findings.
--- NOTE | 2024-03-18 17:54 | XR_ITS ---
PROCEDURE INFORMATION: Exam: XR Right Tibia and Fibula Exam date and time: 03/18/2024 6:07 PM Age: 53 years old Clinical indication: Injury or trauma; Fall; Blunt trauma; Lower leg; Right; Additional info: Fall, right ankle pain TECHNIQUE: Imaging protocol: Radiologic exam of the right tibia and fibula. Views: 2 views. COMPARISON: CR XR ANKLE RT MIN 3V 03/18/2024 6:07 PM FINDINGS: Bones/joints: No acute fracture or malalignment. Soft tissues: Unremarkable. IMPRESSION: No acute osseous findings.
--- NOTE | 2024-03-18 17:54 | XR_ITS ---
PROCEDURE INFORMATION: Exam: XR Right Hip Exam date and time: 03/18/2024 6:07 PM Age: 53 years old Clinical indication: Injury or trauma; Fall; Blunt trauma (contusions or hematomas); Bilateral; Pelvic region; Additional info: Fall, right groin and posterior hip pain TECHNIQUE: Imaging protocol: Radiologic exam of the right hip. Views: 2 or 3 views hip with pelvis when performed. COMPARISON: CT ABDOMEN PELVIS W CON 03/23/2023 9:28 AM FINDINGS: Bones/joints: No acute fracture or malalignment. Mild bilateral hip osteoarthritis. Enthesopathic changes of the bilateral hips bony pelvis. Lower lumbar spondylosis. Soft tissues: Unremarkable. Other findings: Surgical tacks projecting over the lower abdomen. IMPRESSION: No acute osseous findings.
[2024-03-18 18:00] VITALS: BP 114/73; PULSE 75; O2SAT 97
[2024-03-18] MEDS: ACETAMINOPHEN 500MG TAB 1000 MG PO (18:03)
[2024-03-18] MEDS: DEXAMETHASONE 4MG TABLET 10 MG PO (18:03)
--- NOTE | 2024-03-18 18:10 | HMH.EDGENADL ---
Discharge Plan Disposition Patient Disposition: Home, Self-Care Chief Complaint: Fall Prescriptions Prescriptions: No Action diclofenac sodium [Arthritis Pain (diclofenac)] 1 % gel 2 g topical QID Qty: 100 2RF Rx Instructions: apply to single elbow, wrist or hand; for hand includes palm/fingers/back of hand ondansetron 4 mg tablet,disintegrating 4 mg PO DAILY PRN (Reason: nausea and vomiting) Qty: 30 0RF divalproex 500 mg tablet,delayed release (DR/EC) 500 mg PO TID Qty: 90 4RF prednisone 5 mg tablet 10 mg PO as directed Qty: 60 2RF clonazepam 1 mg tablet 0.5 mg PO BIDP PRN (Reason: Anxiety) Qty: 30 2RF gabapentin 300 mg capsule 300 mg PO TID 30 Days Qty: 90 2RF albuterol sulfate [Ventolin HFA] 90 mcg/actuation HFA aerosol inhaler See Rx Instructions .ROUTE .COMPLEX Qty: 18 0RF Dose Instruction: INHALE 1 PUFF BY MOUTH EVERY 4 TO 6 HOURS NEEDED FOR SHORTNESS OF BREATH Rx Instructions: INHALE 1 PUFF BY MOUTH EVERY 4 TO 6 HOURS NEEDED FOR SHORTNESS OF BREATH ipratropium-albuterol 0.5 mg-3 mg(2.5 mg base)/3 mL solution for nebulization 3 ml inhalation QID PRN (Reason: shortness of breath or wheezing) 90 Days Qty: 270 3RF bupropion HCl 300 mg tablet extended release 24 hr 300 mg PO DAILY Qty: 90 0RF Jardiance 10 mg tablet 10 mg PO DAILY 90 Days Qty: 90 2RF escitalopram oxalate [Lexapro] 10 mg tablet 10 mg PO DAILY Qty: 90 2RF omeprazole 20 mg capsule,delayed release(DR/EC) See Rx Instructions .ROUTE .COMPLEX Qty: 90 1RF Dose Instruction: Take 1 capsule by mouth once daily Rx Instructions: Take 1 capsule by mouth once daily trazodone 100 mg tablet 100 mg PO HS Patient Comments: TAKE 1 TABLET BY MOUTH ONCE DAILY AT BEDTIME Nuedexta 20-10 mg capsule 1 cap PO BID Patient Comments: TAKE 1 CAPSULE BY MOUTH EVERY 12 HOURS spironolactone 25 mg Tablet 25 mg PO DAILY 30 Days Qty: 30 0RF irbesartan 75 mg Tablet 75 mg PO DAILY 30 Days Qty: 30 0RF furosemide 40 mg tablet 40 mg PO DAILY 30 Days Qty: 30 0RF prednisone 20 mg Tablet 40 mg PO DAILY 2 Days Qty: 4 0RF albuterol sulfate [Proventil HFA] 90 mcg/actuation HFA aerosol inhaler 2 puff inhalation Q4-6H PRN (Reason: shortness of breath or wheezing) Qty: 8.5 0RF Referrals Follow up/Referrals: Angeles Ling MD [Primary Care Provider] - See instructions Activity Restrictions/Add. Instructions Additional Instructions/Restrictions: Call your family doctor to establish care for this visit to the emergency department and schedule follow-up within 48 hours to ensure improvement. If you have any worsening of your condition or any other concerning signs or symptoms, return to the emergency department or your primary care doctor for further evaluation. Take Tylenol 1000 mg every 6 hours (4 times daily) and ibuprofen 400 mg every 6 hours (4 times daily) as needed with food and water to prevent GI upset and kidney damage. Clinical Impressions Clinical Impression: Acute pain of right lower extremity Print Language Print Language: Kyr[place]z Discharge ED Provider: Adelfo Sexton General Adult HPI General Chief complaint: Fall Stated complaint: AO 03-17-24 fell and hurt right leg and knee Time Seen by Provider: 03/18/24 17:46 Mode of Arrival: Wheelchair Source of Information: Patient and Relative Limitations: No Limitations Description of Symptoms (Recalled from ER Triage Doc. by RN): pt presents to ED with c/o right leg/hip pain. pt reports that she did have a fall yesterday no LOC, no blood thinners. History of Present Illness HPI narrative: Please note that above description of symptoms, in this electronic medical record under categorization of recalled from ER triage doctor by RN are reflective of an initial nursing assessment, however, is not reflective of my full history and physical exam that was personally taken and clarified. Consequentially, this preceding description of symptoms, which may include the patient's categorized chief complaint in the EMR, do not reflect my personal clinical impression, and the ultimate description of history of present illness and patient stated complaints should be deferred to this section of the note. Unless stated otherwise or congruent with this section of the note, additional signs, symptoms, or incongruence should be interpreted as inaccurate with my clinical impression. Related Data Home Medications ?Medication ?Instructions ?Recorded ?Confirmed dextromethorphan 20 mg-quinidine 1 cap PO BID 01/18/24 02/14/24 10 mg capsule (Nuedexta) trazodone 100 mg tablet 100 mg PO HS 01/18/24 02/14/24 Previous Rx's ?Medication ?Instructions ?Recorded Ventolin HFA 90 mcg/actuation See Rx Instructions .Route 11/07/23 aerosol inhaler (albuterol sulfate) .COMPLEX #18 grams diclofenac sodium 1 % topical gel 2 g topical QID #100 grams 11/14/23 (Arthritis Pain (diclofenac)) ipratropium 0.5 mg-albuterol 3 mg 3 ml inhalation QID PRN shortness 11/30/23 (2.5 mg base)/3 mL nebulization of breath or wheezing 90 days #270 soln mL albuterol sulfate 90 mcg/actuation 2 puff inhalation Q4-6H PRN 12/01/23 aerosol inhaler (Proventil HFA) shortness of breath or wheezing #8.5 grams ondansetron 4 mg disintegrating 4 mg PO DAILY PRN nausea and 01/06/24 tablet vomiting #30 tabs furosemide 40 mg tablet 40 mg PO DAILY 30 days #30 tabs 01/21/24 irbesartan 75 mg tablet 75 mg PO DAILY 30 days #30 tabs 01/21/24 prednisone 20 mg tablet 40 mg (2 x 20 mg) PO DAILY 2 days 01/21/24 #4 tabs spironolactone 25 mg tablet 25 mg PO DAILY 30 days #30 tabs 01/21/24 divalproex 500 mg tablet,delayed 500 mg PO TID #90 tabs 01/24/24 release prednisone 5 mg tablet 10 mg (2 x 5 mg) PO as directed 01/24/24 COPD #60 tabs clonazepam 1 mg tablet 0.5 mg (1/2 x 1 mg) PO BIDP PRN 02/14/24 Anxiety #30 tabs gabapentin 300 mg capsule 300 mg PO TID foot pain 30 days 02/14/24 #90 caps bupropion HCl 300 mg 24 hr tablet, 300 mg PO DAILY #90 tabs 02/23/24 extended release empagliflozin 10 mg tablet 10 mg PO DAILY 90 days #90 tabs 02/23/24 (Jardiance) escitalopram oxalate 10 mg tablet 10 mg PO DAILY #90 tabs 02/23/24 (Lexapro) omeprazole 20 mg capsule,delayed See Rx Instructions .Route 02/23/24 release .COMPLEX #90 caps Allergies Allergy/AdvReac Type Severity Reaction Status Date / Time nicotine AdvReac Rash Verified 02/14/24 11:01 [facility] Disclaimer: The information contained in this section may have been updated after the patient was seen, as this information can be updated by other users. Medical History Closed nondisplaced fracture of fifth metatarsal bone of left foot with routine healing Avulsion fracture Respiratory failure with hypercapnia Right lower lobe pneumonia Encounter for general medical examination Lower GI bleeding Abnormal laboratory test result Asthma exacerbation in COPD Acute chest wall pain Pneumonia UTI (urinary tract infection) Recurrent pneumonia Acute viral syndrome Abnormal electrocardiogram [ECG] [EKG] Cough Diarrhea REYMUNDO (obstructive sleep apnea) (HFpEF) heart failure with preserved ejection fraction Oxygen dependent Neuropathy Smoking greater than 30 pack years Mediastinal lymphadenopathy Pulmonary embolism Dyspnea on exertion Acute diastolic CHF (congestive heart failure) Pulmonary hypertension Hilar lymphadenopathy Pleural effusion on right Pneumonia Anxiety disorder Seizure disorder Mood disorder Incontinence INCONTINENCE AT TIMES History of COVID-19 Asthma History of gastroesophageal reflux (GERD) Allergies Depression Anxiety Urinary tract infection Migraine COPD (chronic obstructive pulmonary disease) Hyperlipidemia Hypertension Surgical History History of colonoscopy History of breast biopsy History of hysterectomy History of cholecystectomy Family History Father Lung cancer Sister Ovarian cancer Kidney disease Lung cancer Mother Kidney disease Other Family history of diabetes mellitus type II Family history of hyperlipidemia Family history of hypertension Family history of migraine headaches Family history of myocardial infarction Social History Smoking Status: Current every day smoker tobacco type: cigarettes packs per day: 1 alcohol intake: never counseling provided: none substance use type: denies use current occupational status: disabled Travel in the last 8 weeks: None caregiver/support person: Yes household members: caregiver housing: assisted living facility lives independently: No do you feel safe at home: Yes victim of physical abuse: No victim of emotional abuse: No victim of sexual abuse: No would you like helpful sources: No ROS Obtained: Yes All systems reviewed & no additional complaints except as documented Physical Exam General General appearance: alert, obese and other (Chronically ill, acutely well) Head Head exam: atraumatic and normocephalic Eye Eye exam: Present normal appearance, PERRL and EOMI ENT ENT exam: Present other (Nasal cannula in place 2 L) Neck Neck exam: Present normal inspection, full ROM and trachea midline Respiratory Respiratory exam: Present normal lung sounds bilaterally; Absent respiratory distress, wheezes, stridor, accessory muscle use or prolonged expiratory phase Cardiovascular Cardiovascular exam: Present regular rate, normal rhythm and other (Pulses equal symmetric in upper and lower extremities) Abdominal Exam Abdominal exam: Present soft; Absent distention, tenderness or pulsatile mass Extremities Exam Extremities exam: Present other (Tenderness about right lower extremity. Patient lifting hip off the bed without issue, bending at knee, extending at knee. Leg not shortened or rotated. Pulses equal and symmetric in lowers. No outward signs of injury or deformity); Absent edema Neurological Exam Neurological exam: Present alert, oriented X3 and CN II-XII intact; Absent motor sensory deficit Skin Skin exam: Present warm and dry; Absent diaphoresis or erythema Medical Decision Making Medical Records Medical records reviewed: Yes I reviewed the patient's medical records. Vlad Inquiry Pt receiving controlled substance: No Vlad was queried for this patient: No Vital Signs: 03/18/24 17:38 03/18/24 18:00 03/18/24 18:30 Temperature 98.0 F Temperature Source Oral Pulse Rate 75 70 Pulse Rate [Left Radial] 75 Respiratory Rate 13 Blood Pressure 114/73 125/70 Blood Pressure [Right Arm] 122/78 Blood Pressure Mean [Right Arm] 92 02 Sat by Pulse Oximetry 91 L 97 95 Oxygen Delivery Method Nasal Cannula Oxygen Flow Rate (LPM) 3 Orders (Tests/Meds): ED MEDICATIONS Discontinued Medications Generic Name Dose Route Start Last Admin Trade Name Freq PRN Reason Stop Dose Admin Acetaminophen 1,000 mg 03/18/24 17:56 03/18/24 18:03 Acetaminophen 500mg Tab PO 03/18/24 17:57 1,000 mg ONCE ONE Administration Dexamethasone 10 mg 03/18/24 17:56 03/18/24 18:03 Dexamethasone 4mg Tablet PO 03/18/24 17:57 10 mg ONCE ONE Administration ORDERS Category Date Time Status Ankle XR -Right minimum 3 Views [XR ankle RT min 3V] Exams 03/18/24 17:54 Completed Stat Femur XR right 2 views [XR femur RT 2V] Stat Exams 03/18/24 17:54 Completed Fibula/tibia XR right 2 views [XR tibia fibula RT 2V] Exams 03/18/24 17:54 Completed Stat Hip XR right minimum 2 views [XR hip RT 2-3V w/pelvis] Exams 03/18/24 17:54 Completed Stat Knee XR right 3 views [XR knee RT 3V] Stat Exams 03/18/24 17:54 Completed Medical Decision Narrative: 53-year-old female history of COPD, still smoking 2 packs/day on 2 L nasal cannula complicated by cor pulmonale presenting with fall. Patient's family here to corroborate story. Patient stood up out of car yesterday, 03/17, fell onto her right side in the grass. Landed on her right hip, did not hit her head or lose consciousness. Patient states that she is having pain in her right leg posteriorly down into her knee. Has been able to bear weight, but with pain in the extremity. No other injuries sustained. She is taken ibuprofen for the pain, it did not help much. It is currently mild in intensity, moderate when she bears weight, does not radiate.. History was obtained via conversation with patient. On arrival, patient hemodynamically stable, alert, oriented x4, appropriate, GCS 15, moving all extremities spontaneously, pupils equal and reactive to light. Full physical exam performed and significant for chronically ill-appearing female in no acute distress. Lower extremities are of equal length, nonrotated. Pulses are equal and symmetric in lower extremities. Neurologically intact in lower extremities. Able to range hip, knee, ankle, but states that she is having pain posterior aspect right thigh near buttock, right knee, right ankle. No outward signs of injury or deformity. Differential includes fracture, sprain, strain, dislocation, among others. Patient given Decadron as well as Tylenol here in the emergency department because she was given ibuprofen just before arrival. Workup independently interpreted and significant for no acute bony abnormality of the imaged right lower extremity. On reevaluation, patient resting comfortably in bed, at baseline. Given patient presentation, workup, history, this most likely represents right hip and knee sprain in the setting of fall. Benign soft tissue injury. Less likely be fracture given patient ambulatory, normal weightbearing, mild to moderate pain with bearing weight and minor trauma from standing landing on soft grass. Because patient at baseline without signs or symptoms of clinical decompensation, deemed appropriate for discharge. Results were relayed to patient and family who voiced understanding and were agreeable to outpatient management and follow up. I discussed my clinical impression with patient and family and answered all questions. At this time, the evidence for any other entities in the differential is insufficient to warrant any further testing or ED observation. This was explained as well. Advisory was given that persistent or worsening symptoms require further evaluation. I confirmed the understanding of this discussion. [employer] disclaimer Much of this encounter note is an electronic technical solutions director spoken language to printed text. Electronic technical solutions director of the spoken language may permit errors. Although I have reviewed the note, some errors may still exist. Critical Care Critical Care Time Critical Care Time: No
[2024-03-18 18:30] VITALS: BP 125/70; PULSE 70; O2SAT 95
[2024-03-18 19:53] VITALS: BP 132/79; PULSE 65; RESP 16; TEMP 36.9; O2SAT 97
== END 2024-03-18 20:00 | disposition home or self-care (01) ==
PROVIDERS: Emergency Provider Emergency Medicine; PCP Family Medicine
DX: M79.604 Pain in right leg (principal); W19.XXXA Unspecified fall, initial encounter
CPT/HCPCS: 73502; 73552; 73562; 73590; 73610; 99284; J8540

== ENCOUNTER 2024-03-30 18:51 | Observation (INO) | payer MEDICAID, SELFPAY ==
[2024-03-30 18:59] VITALS: BP 147/91; PULSE 85; RESP 20; TEMP 36.8; O2SAT 93; BMI 37.2
--- NOTE | 2024-03-30 19:17 | XR_ITS ---
PROCEDURE INFORMATION: Exam: XR Chest Exam date and time: 03/30/2024 7:16 PM Age: 53 years old Clinical indication: Cough and shortness of breath; Additional info: SOA, cough, chills TECHNIQUE: Imaging protocol: Radiologic exam of the chest. Views: 1 view. COMPARISON: CT CHEST WO CON 01/17/2024 7:43 PM FINDINGS: Lungs: See Pleural spaces finding. Pleural spaces: No significant interval change in bilateral pleural effusions and adjacent atelectasis. Heart/Mediastinum: Stable cardiac and mediastinal contours. Bones/joints: No evidence of acute osseous abnormalities within the visualized portions of the thoracic spine and ribs. Osseous structures appear appropriate for patient age. IMPRESSION: No significant interval change in bilateral pleural effusions and adjacent atelectasis.
--- NOTE | 2024-03-30 19:24 | HMH.EDGENADL ---
Discharge Plan Disposition Patient Disposition: Admitted Condition: Fair Clinical Impressions Clinical Impression: Acute exacerbation of chronic obstructive pulmonary disease, CHF exacerbation Discharge ED Provider: Adelfo Sexton General Adult HPI General Chief complaint: Upper Respiratory Infection Stated complaint: Cough,body aches Time Seen by Provider: 03/30/24 18:58 Mode of Arrival: Wheelchair Source of Information: Patient Limitations: No Limitations Description of Symptoms (Recalled from ER Triage Doc. by RN): pt and her family states she has had a productive cough with green sputum x1wk. pt is on 2L NC baseline. pt has a hx of COPD. family thinks she has pneumonia. pt and family are poor historians. History of Present Illness HPI narrative: Please note that above description of symptoms, in this electronic medical record under categorization of recalled from ER triage doctor by RN are reflective of an initial nursing assessment, however, is not reflective of my full history and physical exam that was personally taken and clarified. Consequentially, this preceding description of symptoms, which may include the patient's categorized chief complaint in the EMR, do not reflect my personal clinical impression, and the ultimate description of history of present illness and patient stated complaints should be deferred to this section of the note. Unless stated otherwise or congruent with this section of the note, additional signs, symptoms, or incongruence should be interpreted as inaccurate with my clinical impression. Related Data Home Medications ?Medication ?Instructions ?Recorded ?Confirmed trazodone 100 mg tablet 100 mg PO HS 01/18/24 03/30/24 Previous Rx's ?Medication ?Instructions ?Recorded Ventolin HFA 90 mcg/actuation See Rx Instructions .Route 11/07/23 aerosol inhaler (albuterol sulfate) .COMPLEX #18 grams diclofenac sodium 1 % topical gel 2 g topical QID #100 grams 11/14/23 (Arthritis Pain (diclofenac)) ipratropium 0.5 mg-albuterol 3 mg 3 ml inhalation QID PRN shortness 11/30/23 (2.5 mg base)/3 mL nebulization of breath or wheezing 90 days #270 soln mL albuterol sulfate 90 mcg/actuation 2 puff inhalation Q4-6H PRN 12/01/23 aerosol inhaler (Proventil HFA) shortness of breath or wheezing #8.5 grams ondansetron 4 mg disintegrating 4 mg PO DAILY PRN nausea and 01/06/24 tablet vomiting #30 tabs prednisone 20 mg tablet 40 mg (2 x 20 mg) PO DAILY 2 days 01/21/24 #4 tabs divalproex 500 mg tablet,delayed 500 mg PO TID #90 tabs 01/24/24 release prednisone 5 mg tablet 10 mg (2 x 5 mg) PO as directed 01/24/24 COPD #60 tabs clonazepam 1 mg tablet 0.5 mg (1/2 x 1 mg) PO BIDP PRN 02/14/24 Anxiety #30 tabs gabapentin 300 mg capsule 300 mg PO TID foot pain 30 days 02/14/24 #90 caps bupropion HCl 300 mg 24 hr tablet, 300 mg PO DAILY #90 tabs 02/23/24 extended release empagliflozin 10 mg tablet 10 mg PO DAILY 90 days #90 tabs 02/23/24 (Jardiance) omeprazole 20 mg capsule,delayed See Rx Instructions .Route 02/23/24 release .COMPLEX #90 caps dextromethorphan 20 mg-quinidine 1 cap PO BID #60 caps 03/20/24 10 mg capsule (Nuedexta) furosemide 40 mg tablet 40 mg PO DAILY 30 days #30 tabs 03/20/24 irbesartan 75 mg tablet 75 mg PO DAILY 30 days #30 tabs 03/20/24 spironolactone 25 mg tablet 25 mg PO DAILY 30 days #30 tabs 03/20/24 doxycycline monohydrate 100 mg 100 mg PO BID 5 days #10 caps 03/30/24 capsule escitalopram oxalate 10 mg tablet 10 mg PO DAILY #90 tabs 03/30/24 (Lexapro) prednisone 20 mg tablet 40 mg (2 x 20 mg) PO DAILY 5 days 03/30/24 #10 tabs Allergies Allergy/AdvReac Type Severity Reaction Status Date / Time nicotine AdvReac Rash Verified 02/14/24 11:01 [facility] Disclaimer: The information contained in this section may have been updated after the patient was seen, as this information can be updated by other users. Medical History Closed nondisplaced fracture of fifth metatarsal bone of left foot with routine healing Avulsion fracture Respiratory failure with hypercapnia Right lower lobe pneumonia Encounter for general medical examination Lower GI bleeding Abnormal laboratory test result Asthma exacerbation in COPD Acute chest wall pain Pneumonia UTI (urinary tract infection) Recurrent pneumonia Acute viral syndrome Abnormal electrocardiogram [ECG] [EKG] Cough Diarrhea REYMUNDO (obstructive sleep apnea) (HFpEF) heart failure with preserved ejection fraction Oxygen dependent Neuropathy Smoking greater than 30 pack years Mediastinal lymphadenopathy Pulmonary embolism Dyspnea on exertion Acute diastolic CHF (congestive heart failure) Pulmonary hypertension Hilar lymphadenopathy Pleural effusion on right Pneumonia Anxiety disorder Seizure disorder Mood disorder Incontinence INCONTINENCE AT TIMES History of COVID-19 Asthma History of gastroesophageal reflux (GERD) Allergies Depression Anxiety Urinary tract infection Migraine COPD (chronic obstructive pulmonary disease) Hyperlipidemia Hypertension Surgical History History of colonoscopy History of breast biopsy History of hysterectomy History of cholecystectomy Family History Father Lung cancer Sister Ovarian cancer Kidney disease Lung cancer Mother Kidney disease Other Family history of diabetes mellitus type II Family history of hyperlipidemia Family history of hypertension Family history of migraine headaches Family history of myocardial infarction Social History (Updated 03/30/24 @ 22:23 by Ana Laura Ling RN) Smoking Status: Current every day smoker tobacco type: cigarettes packs per day: 1 alcohol intake: never counseling provided: none substance use type: denies use current occupational status: disabled Travel in the last 8 weeks: None caregiver/support person: Yes household members: caregiver housing: assisted living facility lives independently: No do you feel safe at home: Yes victim of physical abuse: No victim of emotional abuse: No victim of sexual abuse: No would you like helpful sources: No ROS Obtained: Yes All systems reviewed & no additional complaints except as documented Physical Exam General General appearance: alert and in no apparent distress Head Head exam: atraumatic and normocephalic Eye Eye exam: Present normal appearance, PERRL and EOMI ENT ENT exam: Present other (Nasal cannula in place at 2 L, baseline) Neck Neck exam: Present normal inspection, full ROM and trachea midline Respiratory Respiratory exam: Present wheezes (Bilaterally with decreased breath sounds in right middle lung field anteriorly); Absent respiratory distress, stridor, accessory muscle use or prolonged expiratory phase Cardiovascular Cardiovascular exam: Present regular rate, normal rhythm and other (Pulses equal symmetric in upper and lower extremities) Abdominal Exam Abdominal exam: Present soft; Absent distention, tenderness or pulsatile mass Extremities Exam Extremities exam: Absent edema Neurological Exam Neurological exam: Present alert, oriented X3 and CN II-XII intact; Absent motor sensory deficit Skin Skin exam: Present warm and dry; Absent diaphoresis or erythema Medical Decision Making Medical Records Medical records reviewed: Yes I reviewed the patient's medical records. Vlad Inquiry Pt receiving controlled substance: No Vlad was queried for this patient: No Vital Signs: 03/30/24 18:59 03/30/24 19:31 03/30/24 19:31 Temperature 98.3 F Temperature Source Oral Pulse Rate 76 Pulse Rate [Left] 85 Respiratory Rate 20 Blood Pressure Blood Pressure [Right Arm] 147/91 H Blood Pressure Mean [Right Arm] 109 Blood Pressure Source Blood Pressure Source [Right Arm] Automatic Cuff Blood Pressure Position Blood Pressure Position [Right Arm] Sitting 02 Sat by Pulse Oximetry 93 L 95 Oxygen Delivery Method Room Air Nasal Cannula Oxygen Flow Rate (LPM) 2 03/30/24 19:31 03/30/24 21:41 03/30/24 21:42 Temperature 98.2 F Temperature Source Oral Pulse Rate 78 84 82 Pulse Rate [Left] Respiratory Rate 20 20 Blood Pressure 97/75 L 94/75 L Blood Pressure [Right Arm] Blood Pressure Mean [Right Arm] Blood Pressure Source Automatic Cuff Automatic Cuff Blood Pressure Source [Right Arm] Blood Pressure Position Supine Sitting Blood Pressure Position [Right Arm] 02 Sat by Pulse Oximetry 98 Oxygen Delivery Method Nasal Cannula Nasal Cannula Oxygen Flow Rate (LPM) 2 2 Lab Data Lab Results 03/30/24 19:22: SARS-CoV-2 (PCR) Not detected, Influenza A Untype (PCR) Not detected, Influenza Type B (PCR) Not detected 03/30/24 19:27: VBG pH 7.39, VBG pCO2 60.1 H, VBG pO2 40.6 H, VBG HCO3 35.5 H, VBG Total CO2 37.3 H, VBG O2 Saturation 78.2 H, VBG Base Excess 10.5 H, VBG Lactic Acid 1.0 03/30/24 20:28: WBC 5.9, RBC 4.37, Hgb 11.1 L, Hct 38.3, MCV 87.6, MCH 25.4 L, MCHC 29.0 L, RDW 17.4, Plt Count 226, MPV 8.5, Neut % (Auto) 58.3, Lymph % (Auto) 34.2, [place] % (Auto) 6.5, Eos % (Auto) 0.4, Baso % (Auto) 0.6, Neut # (Auto) 3.5, Lymph # (Auto) 2.0, [place] # (Auto) 0.4, Eos # (Auto) 0.0, Baso # (Auto) 0.0, Sodium 139, Potassium 4.2, Chloride 102, Carbon Dioxide 39 H, Anion Gap 2.2 L, BUN 16, Creatinine 0.50 L, Estimated Creat Clear 196, Estimated GFR 129, Est GFR ( Amer) 156, Glucose 70 L, Calcium 7.8 L, Total Bilirubin 0.3, AST 13 L, ALT 9 L, Alkaline Phosphatase 80, NT-Pro-B Natriuret Pep 58973 H, Total Protein 6.4, Albumin 3.1 L, Globulin 3.3 H, Albumin/Globulin Ratio 0.9 L 03/30/24 20:28 03/30/24 20:28 Orders (Tests/Meds): ED MEDICATIONS Generic Name Dose Route Start Last Admin Trade Name Freq PRN Reason Stop Dose Admin Acetaminophen 1,000 mg 03/30/24 21:34 03/30/24 23:26 Acetaminophen 325mg Tab PO 04/29/24 21:33 1,000 mg Q6HP PRN Administration Fever or Mild Pain (1-3) Albuterol/Ipratropium 3 ml 03/31/24 00:00 03/30/24 23:44 Ipratropium/Albuterol 3 Ml [facility] 04/30/24 00:00 3 ml Q6RT SHARRI Administration Budesonide 0.5 mg 03/31/24 06:00 Budesonide 0.5mg/2ml [facility] 04/30/24 05:59 BIDRT SHARRI Bumetanide 1 mg 03/30/24 21:45 03/30/24 22:15 Bumetanide 1mg/4ml Vial IV 04/29/24 21:44 1 mg BID SHARRI Administration Carvedilol 3.125 mg 03/30/24 21:45 03/30/24 22:11 Carvedilol 3.125mg Tablet PO 04/29/24 21:44 3.125 mg BID SHARRI Administration Citalopram Hydrobromide 20 mg 03/31/24 09:00 Citalopram 20mg Tablet PO 04/30/24 08:59 DAILY [facility] Clonazepam 0.5 mg 03/30/24 21:45 03/30/24 22:11 Clonazepam 0.5mg Tablet PO 04/29/24 21:44 0.5 mg BID [facility] Administration Divalproex Sodium 500 mg 03/31/24 09:00 Divalproex 500mg (Delayed-Release) Tablet PO 04/30/24 08:59 TID [facility] Docusate Sodium 100 mg 03/31/24 09:00 Docusate Sodium 100 Mg Capsule PO 04/30/24 08:59 DAILY [facility] Doxycycline Hyclate 100 mg 03/30/24 22:15 03/30/24 22:44 Doxycycline Hycl 100 Mg Tablet PO 04/09/24 22:14 Not Given Q12H [facility] Empagliflozin 10 mg 03/31/24 09:00 Empagliflozin 10mg Tablet PO 04/30/24 08:59 DAILY [facility] Enoxaparin Sodium 40 mg 03/31/24 09:00 Enoxaparin 40mg/0.4ml Syringe SQ 04/30/24 08:59 DAILY [facility] Gabapentin 300 mg 03/31/24 09:00 Gabapentin 300mg Capsule PO 04/30/24 08:59 TID [facility] Irbesartan 75 mg 03/31/24 09:00 Irbesartan 75mg Tablet PO 04/30/24 08:59 DAILY [facility] Ondansetron HCl 4 mg 03/30/24 21:34 Ondansetron 4mg/2ml Vial IV 04/29/24 21:33 Q8HP PRN Nausea Pantoprazole Sodium 40 mg 03/31/24 09:00 Pantoprazole 40mg Tablet PO 04/30/24 08:59 DAILY [facility] Prednisone 40 mg 03/31/24 09:00 Prednisone 20mg Tab PO 04/30/24 08:59 DAILY [facility] Sodium Chloride 10 ml 03/30/24 21:34 Sodium Chloride 0.9% 10ml Flush Syringe IV 04/29/24 21:33 NEEDED PRN Maintain IV Site Spironolactone 25 mg 03/31/24 09:00 Spironolactone 25mg Tablet PO 04/30/24 08:59 DAILY [facility] Trazodone HCl 100 mg 03/31/24 21:00 Trazodone 50mg Tablet PO 04/30/24 20:59 HS [facility] Discontinued Medications Generic Name Dose Route Start Last Admin Trade Name Freq PRN Reason Stop Dose Admin Albuterol/Ipratropium 9 ml 03/30/24 19:17 03/30/24 19:31 Ipratropium/Albuterol 3 Ml Neb I[facility] 03/30/24 19:18 9 ml ONCE ONE Administration Furosemide 40 mg 03/30/24 21:12 03/30/24 21:24 Furosemide 40mg/4ml Vial IV 03/30/24 21:13 40 mg ONCE ONE Administration Prednisone 40 mg 03/30/24 19:17 03/30/24 19:30 Prednisone 20mg Tab PO 03/30/24 19:18 40 mg ONCE ONE Administration ORDERS Category Date Time Status CXR --portable [XR chest portable] Stat Exams 03/30/24 19:17 Completed Basic Metabolic Panel [facility] Lab 03/31/24 06:00 Ordered CBC w/Auto Diff [Complete Blood Count Auto Diff] Stat Lab 03/30/24 20:28 Completed CMP [Comprehensive Metabolic Panel] Stat Lab 03/30/24 20:28 Completed Complete Blood Count Auto Diff [facility] Lab 03/31/24 06:00 Ordered Magnesium [facility] Lab 03/31/24 06:00 Ordered NT Pro Brain Natriuretic Pep. Stat Lab 03/30/24 20:28 Completed Rapid PCR Covid and Flu A/B Stat Lab 03/30/24 19:22 Completed VBG [Venous Blood Gas] Stat RT 03/30/24 19:27 Completed Medical Decision Narrative: 53-year-old female history of COPD presenting with cough, fevers, chills. Is been getting worse over the period of a week. No known sick contacts enough. Has not needed increased her home oxygen and is stayed on 2 L. Cough is productive of yellow sputum, which is new. Intermittently having right lower chest wall pain that does not radiate, is intermittent. History was obtained via conversation with patient and family. On arrival, patient hemodynamically stable, alert, [oriented x4, ][appropriate, ]GCS [15], moving all extremities spontaneously, pupils equal and reactive to light. Full physical exam performed and significant for chronically ill, but acutely well-appearing patient who is in no acute distress. On her home 2 L nasal cannula. Cardiac exam within normal limits with no lower extremity edema, pulses equal and symmetric. Patient has decreased breath sounds in right middle lung morgan anteriorly, wheezing diffusely otherwise on expiratory phase. Nontachycardic, saturating in the mid 90s on her home 2 L. Differential includes COPD exacerbation, pneumonia, bronchitis, CHF exacerbation, among others. Patient placed on continuous cardiac monitoring and continuous pulse ox with initial blood pressure 147/91, heart rate 85, saturation 93% on 2 L nasal cannula. Patient was given DuoNebs, Solu-Medrol for symptomatic management[ and correction of underlying abnormalities]. Workup independently interpreted and significant for nonactionable CBC or chemistry. Patient's blood gas with normal pH, mildly elevated CO2, but compensatory bicarb. Lactate negative. BNP elevated almost 12,000. On independent interpretation of imaging, no acute cardiopulmonary airspace disease. See radiology read for full review of final results. Patient given initial dose of doxycycline. I feel patient's presentation is most consistent with COPD exacerbation given change in sputum, including color and quantity, as well as shortness of breath. Given elevated BNP, also mixed picture between COPD and CHF. Given 40 mg IV Lasix. Because patient high risk for clinical decompensation, deemed appropriate for inpatient admission. Results were relayed to patient who voiced understanding and patient was agreeable to inpatient admission and management. Patient was admitted to the hospital for further definitive management. Sofa Back Upholsterer disclaimer Much of this encounter note is an electronic mechanical reliability engineer spoken language to printed text. Electronic mechanical reliability engineer of the spoken language may permit errors. Although I have reviewed the note, some errors may still exist. Critical Care Critical Care Time Critical Care Time: Yes (Cardiovascular) Attestation: On 03/30/24, the high probability of a clinically significant, sudden or life threatening deterioration of the following system(s) required my full and direct attention, intervention and personal management. The time I documented below is in addition to time spent performing reported procedures but includes the following listed in this critical care notation. Total Time Total Critical Care Time: 35
[2024-03-30] MEDS: predniSONE 20MG TAB 40 MG PO (19:30)
[2024-03-30 19:31] VITALS: PULSE 76; PULSE 78; O2SAT 95
[2024-03-30] MEDS: IPRATROPIUM/ALBUTEROL 3 ML NEB 9 ML IH (19:31)
[2024-03-30 19:33] LABS: Coronavirus 19, PCR Not Detected (NotDetected); Influenza A, PCR Not Detected (NotDetected); Influenza B, PCR Not Detected (NotDetected)
[2024-03-30 20:29] LABS: VBG Base Excess 10.5 mmol/L (-2.4-2.3); VBG HCO3 35.5 mmol/L (23-30); VBG Oxygen Saturation 78.2 % (50-70); VBG PH 7.39 mmol/L (7.31-7.41); VBG PO2 40.6 mmol/L (28-40); VBG Total CO2 37.3 mmol/L (23-27)
[2024-03-30 20:31] LABS: VBG PCO2 60.1 mmol/L (35-51)
[2024-03-30 20:35] LABS: Basophils % 0.6 % (0.1-2.0); Eosinophils % 0.4 % (0.1-12.0); Hematocrit 38.3 % (37.0-47.0); Hemoglobin 11.1 g/dL (12.2-16.2); Lymphocytes % 34.2 % (10-50); Mean Corpuscular Hemoglobin 25.4 pg (27.0-31.2); Mean Corpuscular Volume 87.6 fl (81-99); Mean Platelet Volume 8.5 fl (7.4-10.4); Monocytes # 0.4 K/mm3 (0.1-1.0); Monocytes % 6.5 % (1.7-9.3); Neutrophils # 3.5 K/mm3 (1.8-7.8); Neutrophils % 58.3 % (37.0-80.0); Platelet Count 226 K/mm3 (142-424); Red Blood Count 4.37 M/mm3 (4.20-5.40); Red Cell Distribution Width 17.4 % (11.5-17.5); White Blood Count 5.9 K/mm3 (4.8-10.8)
--- NOTE | 2024-03-30 20:35 | PC.NURSE ---
Critical lab venous blood gas: 60.[address] Sexton notified.
--- NOTE | 2024-03-30 20:38 | PC.NURSE ---
rounded on pt, nurse was at bedside and pt did not need anything at this time.
[2024-03-30 20:41] LABS: Albumin Level 3.1 g/dl (3.5-5.0); Chloride 102 mmol/L (98-107); Sodium 139 mmol/L (136-145)
[2024-03-30 20:42] LABS: Potassium 4.2 mmoL/L (3.5-5.1)
[2024-03-30 20:44] LABS: Alanine Aminotransferase 9 U/L (12-78); Anion Gap 2.2 mEq/L (5-15); Aspartate Amino Transferase 13 U/L (14-36); Blood Urea Nitrogen 16 mg/dl (7-17); Carbon Dioxide 39 mmol/L (22.0-30.0); Creatinine Clearance Estimated 196 mL/min (50-200); Estimated Glomerular Filt Rate 129 ml/min (>60); GFR (African American) 156 ML/MIN (>60)
[2024-03-30 20:45] LABS: Albumin/Globulin Ratio 0.9 (1.1-1.8); Alkaline Phosphatase 80 U/L (38-126); Bilirubin,Total 0.3 mg/dl (0.2-1.3); Calcium 7.8 mg/dl (8.4-10.2); Globulin 3.3 g/dL (1.3-3.2); Glucose 70 mg/dl (74-100); Total Protein,Serum 6.4 g/dl (6.3-8.2)
[2024-03-30 20:54] LABS: NT Pro Brain Natriuretic Pep. 11400 pg/mL (0-125)
--- NOTE | 2024-03-30 21:06 | PC.NURSE ---
rounded on pt. gave pretzels and water as snack .
[2024-03-30] MEDS: FUROSEMIDE 40MG/4ML VIAL 40 MG IV (21:24)
--- NOTE | 2024-03-30 21:37 | PC.NURSE ---
Report called to Anita BRAVO . Pt being admitted to med/surg.
[2024-03-30 21:41] VITALS: BP 97/75; PULSE 84; RESP 20; O2SAT 98
[2024-03-30 21:42] VITALS: BP 94/75; PULSE 82; RESP 20; TEMP 36.8; O2SAT 97
--- NOTE | 2024-03-30 21:42 | PC.NURSE ---
pt arrived to floor via wheelchair @21:41
--- NOTE | 2024-03-30 21:45 | P.HP_ITS ---
History of Present Illness *Admission Date: 03/30/24 *Reason for visit:: Cough *History of present illness: This is a 53-year-old female the presents the [facility] emergency department for evaluation of cough and shortness of air. She is accompanied by her niece who assists with the history. The patient lives with her older sister who provides care and medication dispensing assistance. She was hospitalized in December for shortness of air with cardiology and pulmonology evaluations. She is chronically prescribed home oxygen 2 L. She is chronically prescribed NIPPV therapy. She reports a croupy cough that is productive of yellow sputum with no associated hemoptysis. She describes shortness of air and increasing dyspnea with exertion. She reports no pain with deep inspiration. She reports some right lower chest wall discomfort with movement but denies associated retro-sternal chest pain, palpitations or confusion. She recalls no falls or injuries. She describes subjective fever and chills. She has identified no associated nausea, vomiting, diarrhea or rashes. Her ED chest x- ray is consistent with her known bilateral pleural effusions and her proBNP is elevated at 11,000. [facility] Disclaimer: Medical History Closed nondisplaced fracture of fifth metatarsal bone of left foot with routine healing Avulsion fracture Respiratory failure with hypercapnia Right lower lobe pneumonia Encounter for general medical examination Lower GI bleeding Abnormal laboratory test result Asthma exacerbation in COPD Acute chest wall pain Pneumonia UTI (urinary tract infection) Recurrent pneumonia Acute viral syndrome Abnormal electrocardiogram [ECG] [EKG] Cough Diarrhea REYMUNDO (obstructive sleep apnea) (HFpEF) heart failure with preserved ejection fraction Oxygen dependent Neuropathy Smoking greater than 30 pack years Mediastinal lymphadenopathy Pulmonary embolism Dyspnea on exertion Acute diastolic CHF (congestive heart failure) Pulmonary hypertension Hilar lymphadenopathy Pleural effusion on right Pneumonia Anxiety disorder Seizure disorder Mood disorder Incontinence INCONTINENCE AT TIMES History of COVID-19 Asthma History of gastroesophageal reflux (GERD) Allergies Depression Anxiety Urinary tract infection Migraine COPD (chronic obstructive pulmonary disease) Hyperlipidemia Hypertension Surgical History History of colonoscopy History of breast biopsy History of hysterectomy History of cholecystectomy Family History Father Lung cancer Sister Ovarian cancer Kidney disease Lung cancer Mother Kidney disease Other Family history of diabetes mellitus type II Family history of hyperlipidemia Family history of hypertension Family history of migraine headaches Family history of myocardial infarction Social History (Updated 03/30/24 @ 22:00 by Ana Laura Ling RN) Smoking Status: Former smoker tobacco type: cigarettes packs per day: 1 alcohol intake: never counseling provided: none substance use type: denies use current occupational status: disabled Travel in the last 8 weeks: None caregiver/support person: Yes household members: caregiver housing: assisted living facility lives independently: No do you feel safe at home: Yes victim of physical abuse: No victim of emotional abuse: No victim of sexual abuse: No would you like helpful sources: No Review of Systems Review of Systems Review of systems:: pertinent systems reviewed and negative unless documented below Constitutional Constitutional: Reports chills, Reports fever(s), Reports lethargy, Reports snoring and Reports weakness *Cardiovascular Cardiovascular: Denies chest pain, Denies chest pain at rest, Reports dyspnea, Reports dyspnea on exertion and Reports orthopnea *Respiratory Respiratory: Reports cough, Reports dyspnea, Reports dyspnea on exertion, Reports excessive phlegm production, Denies hemoptysis, Denies pain on inspiration, Denies pain with cough and Reports snoring *Gastrointestinal Gastrointestinal: Denies loose stools, Denies nausea and Denies vomiting *Genitourinary Genitourinary: Denies dysuria *Neurologic Neurologic: Reports weakness Meds Home Medications and Allergies Home Medications ?Medication ?Instructions ?Recorded ?Confirmed ?Type Ventolin HFA 90 mcg/actuation See Rx Instructions .Route 11/07/23 02/14/24 Rx aerosol inhaler (albuterol sulfate) .COMPLEX #18 grams diclofenac sodium 1 % topical gel 2 g topical QID #100 grams 11/14/23 02/14/24 Rx (Arthritis Pain (diclofenac)) ipratropium 0.5 mg-albuterol 3 mg 3 ml inhalation QID PRN shortness 11/30/23 02/14/24 Rx (2.5 mg base)/3 mL nebulization of breath or wheezing 90 days #270 soln mL albuterol sulfate 90 mcg/actuation 2 puff inhalation Q4-6H PRN 12/01/23 02/14/24 Rx aerosol inhaler (Proventil HFA) shortness of breath or wheezing #8.5 grams ondansetron 4 mg disintegrating 4 mg PO DAILY PRN nausea and 06/07/24 07/16/24 Rx tablet vomiting #30 tabs trazodone 100 mg tablet 100 mg PO HS 01/18/24 02/14/24 History prednisone 20 mg tablet 40 mg (2 x 20 mg) PO DAILY 2 days 01/21/24 02/14/24 Rx #4 tabs divalproex 500 mg tablet,delayed 500 mg PO TID #90 tabs 01/24/24 02/14/24 Rx release prednisone 5 mg tablet 10 mg (2 x 5 mg) PO as directed 01/24/24 02/14/24 Rx COPD #60 tabs clonazepam 1 mg tablet 0.5 mg (1/2 x 1 mg) PO BIDP PRN 02/14/24 02/14/24 Rx Anxiety #30 tabs gabapentin 300 mg capsule 300 mg PO TID foot pain 30 days 02/14/24 02/14/24 Rx #90 caps bupropion HCl 300 mg 24 hr tablet, 300 mg PO DAILY #90 tabs 02/23/24 Rx extended release empagliflozin 10 mg tablet 10 mg PO DAILY 90 days #90 tabs 02/23/24 Rx (Jardiance) omeprazole 20 mg capsule,delayed See Rx Instructions .Route 02/23/24 Rx release .COMPLEX #90 caps dextromethorphan 20 mg-quinidine 1 cap PO BID #60 caps 03/20/24 Rx 10 mg capsule (Nuedexta) furosemide 40 mg tablet 40 mg PO DAILY 30 days #30 tabs 03/20/24 Rx irbesartan 75 mg tablet 75 mg PO DAILY 30 days #30 tabs 03/20/24 Rx spironolactone 25 mg tablet 25 mg PO DAILY 30 days #30 tabs 03/20/24 Rx doxycycline monohydrate 100 mg 100 mg PO BID 5 days #10 caps 03/30/24 Rx capsule escitalopram oxalate 10 mg tablet 10 mg PO DAILY #90 tabs 03/30/24 Rx (Lexapro) prednisone 20 mg tablet 40 mg (2 x 20 mg) PO DAILY 5 days 03/30/24 Rx #10 tabs New Prescriptions to Start Prescriptions: doxycycline monohydrate Adelfo Sexton prednisone Adelfo Sexton Allergies Allergy/AdvReac Type Severity Reaction Status Date / Time nicotine AdvReac Rash Verified 02/14/24 11:01 Exam Data for Last 24 hours Vital signs and Labs for Last 24 Hours: Temp Pulse Resp BP Pulse Ox O2 Del Method O2 Flow Rate 98.2 F 82 20 94/75 L 98 Nasal Cannula 2 03/30/24 21:42 03/30/24 21:42 03/30/24 21:42 03/30/24 21:42 03/30/24 21:41 03/30/24 21:42 03/30/24 21:42 Laboratory Results - last 24 hr 03/30/24 19:22: SARS-CoV-2 (PCR) Not detected, Influenza A Untype (PCR) Not detected, Influenza Type B (PCR) Not detected 03/30/24 19:27: VBG pH 7.39, VBG pCO2 60.1 H, VBG pO2 40.6 H, VBG HCO3 35.5 H, VBG Total CO2 37.3 H, VBG O2 Saturation 78.2 H, VBG Base Excess 10.5 H, VBG Lactic Acid 1.0 03/30/24 20:28: WBC 5.9, RBC 4.37, Hgb 11.1 L, Hct 38.3, MCV 87.6, MCH 25.4 L, MCHC 29.0 L, RDW 17.4, Plt Count 226, MPV 8.5, Neut % (Auto) 58.3, Lymph % (Auto) 34.2, [place] % (Auto) 6.5, Eos % (Auto) 0.4, Baso % (Auto) 0.6, Neut # (Auto) 3.5, Lymph # (Auto) 2.0, [place] # (Auto) 0.4, Eos # (Auto) 0.0, Baso # (Auto) 0.0, Sodium 139, Potassium 4.2, Chloride 102, Carbon Dioxide 39 H, Anion Gap 2.2 L, BUN 16, Creatinine 0.50 L, Estimated Creat Clear 196, Estimated GFR 129, Est GFR ( Amer) 156, Glucose 70 L, Calcium 7.8 L, Total Bilirubin 0.3, AST 13 L, ALT 9 L, Alkaline Phosphatase 80, NT-Pro-B Natriuret Pep 80498 H, Total Protein 6.4, Albumin 3.1 L, Globulin 3.3 H, Albumin/Globulin Ratio 0.9 L I & O for Last 24 hours: Intake & Output 03/27/24 03/28/24 03/29/24 03/30/24 23:59 23:59 23:59 23:59 Weight 95.254 kg Constitutional Constitutional: no acute distress, morbidly obese, chronically ill appearing and cooperative *Routine HEENT Exam Head: Present normocephalic and atraumatic Eye: Present EOMI and PERRL ENT: Present mucous membranes moist *Routine Neck Exam Neck: Present trachea midline; Absent JVD or lymphadenopathy *Routine Respiratory Exam Respiratory: Present rhonchi, crackles, normal respiratory effort and symmetric chest movement; Absent respiratory distress *Routine Cardiovascular Exam Cardiovascular: Present RRR *Routine Abdominal Exam Abdominal: Present soft and normoactive bowel sounds; Absent tenderness *Routine Rectal Exam Rectal:: deferred *Routine Genitalia Exam Genitalia:: deferred *Routine Extremities Exam Extremities: Present pulses intact; Absent edema *Routine Skin Exam Skin: Absent rash *Routine Neurological Exam Neurological: Present alert, oriented X3, moving all extremities, vision grossly intact and hearing grossly intact; Absent sensory deficit or motor deficit Routine Psychiatric Exam Psychiatric: Present normal affect and cooperative Assessment and Plan *Assessment and plan (1) Acute on chronic respiratory failure with hypoxia and hypercapnia: Status: Acute Category: Medical Code(s): J96.21 - Acute and chronic respiratory failure with hypoxia; J96.22 - Acute and chronic respiratory failure with hypercapnia (2) REYMUNDO and COPD overlap syndrome: Status: Acute Category: Medical Code(s): G47.33 - Obstructive sleep apnea (adult) (pediatric); J44.9 - Chronic obstructive pulmonary disease, unspecified (3) Chronic bilateral pleural effusions: Status: Acute Category: Medical Code(s): J90 - Pleural effusion, not elsewhere classified (4) Tobacco dependence: Status: Acute Category: Medical Code(s): F17.200 - Nicotine dependence, unspecified, uncomplicated (5) Pulmonary hypertension: Status: Acute Category: Medical Code(s): I27.20 - Pulmonary hypertension, unspecified (6) Acute on chronic heart failure with preserved ejection fraction (HFpEF): Status: Acute Category: Medical Code(s): I50.33 - Acute on chronic diastolic (congestive) heart failure (7) Seizure disorder: Status: Acute Category: Medical Code(s): G40.909 - Epilepsy, unspecified, not intractable, without status epilepticus (8) Mood disorder: Status: Acute Category: Medical Code(s): F39 - Unspecified mood [affective] disorder (9) Cognitive impairment: Status: Acute Category: Medical Code(s): R41.89 - Other symptoms and signs involving cognitive functions and awareness Plan This is a 53-year-old female with BMI of 37, REYMUNDO/OHS/COPD overlap with pulmonary hypertension and HFpEF. She presented to the ED with cough, dyspnea and general weakness. Her cognitive impairment is noted. Problems addressed as follows: Acute on chronic hypoxic and hypercapnic respiratory failure Bilateral pleural effusions Pulmonary hypertension REYMUNDO/OHS/COPD overlap with exacerbation Tobacco dependence Pulse oximetry monitoring Oxygen therapy to maintain appropriate oxygen saturations Currently requiring 2 L via NC (home O2 requirement 2 L NC) NIPPV therapy Respiratory therapy evaluations ED chest x-ray with no acute disease Brenda/Carmita inhalation therapy ICS therapy P.o. prednisone PPI therapy Doxycycline therapy Trending labs and inflammatory markers Tobacco cessation education Allergy reported to [place] Acute on chronic HFpEF Telemetry monitoring Accurate I's and O's Sodium and fluid restriction Routine weights Echo (07/2023) with normal EF and RVSP greater than 60 mmHg IV Loop diuretic therapy Drug therapy requiring intensive monitoring for toxicity Routine electrolyte, magnesium and creatinine evaluations Beta-brennan therapy SGLT2 inhibitor therapy ARB therapy Aldosterone antagonist therapy Seizure disorder Seizure precautions Reconciling home medications Mood disorder Cognitive impairment Routine nursing interaction Reconciling home medications The length of stay for this patient will be 2 midnights or greater due to above diagnoses.
[2024-03-30 22:00] VITALS: BP 146/90; PULSE 91; RESP 18; TEMP 36.8; O2SAT 90; BMI 28.9
[2024-03-30] MEDS: clonazePAM 0.5MG TABLET 0.5 MG PO (22:11)
[2024-03-30] MEDS: CARVEDILOL 3.125MG TABLET 3.125 MG PO (22:11)
[2024-03-30] MEDS: BUMETANIDE 1MG/4ML VIAL 1 MG IV (22:15)
[2024-03-30] MEDS: ACETAMINOPHEN 325MG TAB 1000 MG PO (23:26)
[2024-03-30 23:44] VITALS: PULSE 75; PULSE 79; O2SAT 93
[2024-03-30] MEDS: IPRATROPIUM/ALBUTEROL 3 ML NEB IH (23:44)
--- NOTE | 2024-03-30 23:45 | PC.NURSE ---
RESP CARE NOTE: Pt refused CPAP at this time hospitalist aware
[2024-03-31] VITALS (10 sets, daily range): BP systolic 123–147; BP diastolic 71–98; PULSE 57–75; RESP 17–18; TEMP 36.5–37.1; O2SAT 90–97; BMI 28.0
[2024-03-31] MEDS: IPRATROPIUM/ALBUTEROL 3 ML NEB IH ×4 (06:19→23:57)
[2024-03-31] MEDS: BUDESONIDE 0.5MG/2ML NEB 0.5 MG IH ×2 (06:19→18:11)
--- NOTE | 2024-03-31 06:38 | PC.NURSE ---
53 yo fe pt admitted this shift for heart failure and COPD exacerbation. Pt is A/O x 1-2. She gets anxious very easily and is not able to answer a lot of questions without getting overwhelmed. She has not slept this shift. She has eaten several snacks, has been medicated for pain X 1 and also has had a couple episodes of diarrhea. Pt denies reporting to Md due to its embarrassing .
[2024-03-31 06:52] LABS: Basophils % 0.5 % (0.1-2.0); Eosinophils % 0.3 % (0.1-12.0); Hematocrit 38.4 % (37.0-47.0); Hemoglobin 10.8 g/dL (12.2-16.2); Lymphocytes # 1.6 K/mm3 (0.7-4.5); Lymphocytes % 28.3 % (10-50); Mean Corpuscular HGB Conc 28.1 g/dL (31.8-35.4); Mean Corpuscular Hemoglobin 24.5 pg (27.0-31.2); Mean Corpuscular Volume 87.1 fl (81-99); Mean Platelet Volume 8.4 fl (7.4-10.4); Monocytes # 0.3 K/mm3 (0.1-1.0); Monocytes % 5.9 % (1.7-9.3); Neutrophils # 3.6 K/mm3 (1.8-7.8); Platelet Count 242 K/mm3 (142-424); Red Blood Count 4.41 M/mm3 (4.20-5.40); Red Cell Distribution Width 17.7 % (11.5-17.5); White Blood Count 5.5 K/mm3 (4.8-10.8)
[2024-03-31 07:02] LABS: Chloride 98 mmol/L (98-107); Sodium 138 mmol/L (136-145)
[2024-03-31 07:05] LABS: Blood Urea Nitrogen 16 mg/dl (7-17); Calcium 7.7 mg/dl (8.4-10.2); Carbon Dioxide 40 mmol/L (22.0-30.0); Creatinine Clearance Estimated 147 mL/min (50-200); Estimated Glomerular Filt Rate 129 ml/min (>60); GFR (African American) 156 ML/MIN (>60); Glucose 99 mg/dl (74-100); Magnesium 1.9 mg/dl (1.6-2.3)
[2024-03-31] MEDS: BUMETANIDE 1MG/4ML VIAL 1 MG IV ×2 (08:44→15:38)
[2024-03-31] MEDS: PANTOPRAZOLE 40MG TABLET 40 MG PO (08:44)
[2024-03-31] MEDS: CITALOPRAM 20MG TABLET 20 MG PO (08:45)
[2024-03-31] MEDS: SPIRONOLACTONE 25MG TABLET 25 MG PO (08:45)
[2024-03-31] MEDS: CARVEDILOL 3.125MG TABLET 3.125 MG PO ×2 (08:45→21:29)
[2024-03-31] MEDS: DIVALPROEX 500MG (Delayed-Release) TABLET 500 MG PO ×3 (08:45→21:29)
[2024-03-31] MEDS: DOXYCYCLINE HYCL 100 MG TABLET PO ×2 (08:45→21:29)
[2024-03-31] MEDS: IRBESARTAN 75MG TABLET 75 MG PO (08:45)
[2024-03-31] MEDS: predniSONE 20MG TAB 40 MG PO (08:45)
[2024-03-31] MEDS: GABAPENTIN 300MG CAPSULE 300 MG PO ×3 (08:45→21:29)
[2024-03-31] MEDS: EMPAGLIFLOZIN 10MG TABLET 10 MG PO (08:45)
[2024-03-31] MEDS: ENOXAPARIN 40MG/0.4ML SYRINGE 40 MG SQ (08:45)
[2024-03-31] MEDS: clonazePAM 0.5MG TABLET 0.5 MG PO ×2 (08:50→21:29)
--- NOTE | 2024-03-31 08:53 | HMH.PHAINT1 ---
Pharmacy Intervention Comments: MEDICATION RECONCILIATION COMPLETED ON PATIENT USING EXTERNAL FILL HISTORY FROM PHARMACY AND EMERGENCY DEPARTMENT DISCHARGE MEDICATIONS. -EMANUEL YU, EDISOND
[2024-03-31] MEDS: CALCIUM POLYCARBOPHIL 625MG TAB 1250 MG PO ×2 (09:55→21:30)
[2024-03-31 10:40] LABS: Adenovirus F 40/41, stool Not Detected (NotDetected); Astrovirus Not Detected (NotDetected); Campylobacter Not Detected (NotDetected); Cryptosporidium Not Detected (NotDetected); Cyclospora Cayetanesis Not Detected (NotDetected); Entamoeba histolytica Not Detected (NotDetected); Enteroaggregative E coli Not Detected (NotDetected); Enteropathogenic E coli Not Detected (NotDetected); Enterotoxigenic E coli Not Detected (NotDetected); Giardia lamblia Not Detected (NotDetected); Norovirus Not Detected (NotDetected); Plesimonas Shigalloides, PCR Not Detected (NotDetected); Rotavirus A Not Detected (NotDetected); Salmonella, PCR Not Detected (NotDetected); Sapovirus Not Detected (NotDetected); Shiga-like toxin E coli Not Detected (NotDetected); Shigella Enterovasive E coli Not Detected (NotDetected); Vibrio Cholerae Not Detected (NotDetected); Vibrio, PCR Not Detected (NotDetected); Yersinia Entercolitica, PCR Not Detected (NotDetected)
--- NOTE | 2024-03-31 12:18 | P.PN_ITS ---
Subjective *Date: 03/31/24 *Time: 12:34 Interval history: Stable on 2 L today with sats in the 90. Will attempt to wean to room air. No nausea or vomiting. Diuresing well. Having loose stools this morning. Denies any chest pain. At baseline mentation. Medical Exam Vital signs and Labs for Last 24 Hours: Vital Signs Temp Pulse Pulse Resp BP BP Pulse Ox 03/31/24 10:31 03/31/24 09:00 03/31/24 08:00 69 03/31/24 08:00 03/31/24 08:00 98.3 F 67 18 129/74 96 03/31/24 07:00 03/31/24 06:20 63 03/31/24 06:20 63 03/31/24 06:20 96 03/31/24 05:00 03/31/24 04:00 60 03/31/24 04:00 98.8 F 68 17 147/92 H 95 03/31/24 03:00 03/31/24 00:57 03/31/24 00:00 70 03/31/24 00:00 98.3 F 75 18 131/73 96 03/30/24 23:44 75 03/30/24 23:44 79 03/30/24 23:44 93 L 03/30/24 23:00 03/30/24 22:00 98.2 F 91 H 18 146/90 H 90 L 03/30/24 21:42 98.2 F 82 20 94/75 L 03/30/24 21:41 84 20 97/75 L 98 03/30/24 19:31 78 03/30/24 19:31 76 03/30/24 19:31 95 03/30/24 18:59 98.3 F 85 20 147/91 H 93 L O2 Del Method O2 Flow Rate 03/31/24 10:31 Room Air 03/31/24 09:00 Room Air 03/31/24 08:00 03/31/24 08:00 Nasal Cannula 2 03/31/24 08:00 Nasal Cannula 2 03/31/24 07:00 Nasal Cannula 2 03/31/24 06:20 03/31/24 06:20 03/31/24 06:20 Nasal Cannula 2 03/31/24 05:00 Nasal Cannula 2 03/31/24 04:00 03/31/24 04:00 Nasal Cannula 2 03/31/24 03:00 Nasal Cannula 2 03/31/24 00:57 Nasal Cannula 2 03/31/24 00:00 03/31/24 00:00 Nasal Cannula 2 03/30/24 23:44 03/30/24 23:44 03/30/24 23:44 Nasal Cannula 2 03/30/24 23:00 Nasal Cannula 2 03/30/24 22:00 Nasal Cannula 2 03/30/24 21:42 Nasal Cannula 2 03/30/24 21:41 Nasal Cannula 2 03/30/24 19:31 03/30/24 19:31 03/30/24 19:31 Nasal Cannula 2 03/30/24 18:59 Room Air Intake and Output 03/30/24 03/31/24 03/31/24 23:59 07:59 15:59 Intake Total 730 / 1000 270 / 1000 Output Total 600 / 600 300 / 300 0 / 300 Balance -600 / 130 430 / 700 270 / 700 Intake: Intake, Oral Amount 730 / 1000 270 / 1000 Output: Output, Urine Amount 600 / 600 300 / 300 0 / 300 Other: Number of Unmeasured Voids 0 1 1 Number of Bowel Movements 1 1 1 Weight 74.026 kg 71.713 kg Patient Weight 03/31/24 23:59 Weight 71.713 kg Laboratory Results - last 24 hr 03/30/24 19:22: SARS-CoV-2 (PCR) Not detected, Influenza A Untype (PCR) Not detected, Influenza Type B (PCR) Not detected 03/30/24 19:27: VBG pH 7.39, VBG pCO2 60.1 H, VBG pO2 40.6 H, VBG HCO3 35.5 H, VBG Total CO2 37.3 H, VBG O2 Saturation 78.2 H, VBG Base Excess 10.5 H, VBG Lactic Acid 1.0 03/30/24 20:28: WBC 5.9, RBC 4.37, Hgb 11.1 L, Hct 38.3, MCV 87.6, MCH 25.4 L, MCHC 29.0 L, RDW 17.4, Plt Count 226, MPV 8.5, Neut % (Auto) 58.3, Lymph % (Auto) 34.2, [place] % (Auto) 6.5, Eos % (Auto) 0.4, Baso % (Auto) 0.6, Neut # (Auto) 3.5, Lymph # (Auto) 2.0, [place] # (Auto) 0.4, Eos # (Auto) 0.0, Baso # (Auto) 0.0, Sodium 139, Potassium 4.2, Chloride 102, Carbon Dioxide 39 H, Anion Gap 2.2 L, BUN 16, Creatinine 0.50 L, Estimated Creat Clear 196, Estimated GFR 129, Est GFR ( Amer) 156, Glucose 70 L, Calcium 7.8 L, Total Bilirubin 0.3, AST 13 L, ALT 9 L, Alkaline Phosphatase 80, NT-Pro-B Natriuret Pep 32225 H, Total Protein 6.4, Albumin 3.1 L, Globulin 3.3 H, Albumin/Globulin Ratio 0.9 L 03/31/24 06:35: WBC 5.5, RBC 4.41, Hgb 10.8 L, Hct 38.4, MCV 87.1, MCH 24.5 L, MCHC 28.1 L, RDW 17.7 H, Plt Count 242, MPV 8.4, Neut % (Auto) 65.0, Lymph % (Auto) 28.3, [place] % (Auto) 5.9, Eos % (Auto) 0.3, Baso % (Auto) 0.5, Neut # (Auto) 3.6, Lymph # (Auto) 1.6, [place] # (Auto) 0.3, Eos # (Auto) 0.0, Baso # (Auto) 0.0, Sodium 138, Potassium 4.0, Chloride 98, Carbon Dioxide 40 H, Anion Gap 4.0 L, BUN 16, Creatinine 0.50 L, Estimated Creat Clear 147, Estimated GFR 129, Est GFR ( Amer) 156, Glucose 99 D, Calcium 7.7 L, Magnesium 1.9 I & O for Labs for Last 24 Hours: Intake & Output 03/28/24 03/29/24 03/30/24 03/31/24 23:59 23:59 23:59 23:59 Intake Total 1000 / 1000 Output Total 600 / 600 300 / 300 Balance -600 / 130 700 / 700 Weight 74.026 kg 71.713 kg Constitutional: Present no acute distress, average body habitus and chronically ill appearing Head: Present atraumatic and normocephalic ENT: Present normal exam Comment:: hirsutism Neck: Present normal inspection Respiratory: Present prolonged expiratory phase and diminished air movement; Absent rhonchi, wheezes or crackles Cardiac: Present Reg Rate and Rhythm GI: Present soft and normal bowel sounds; Absent distention or tenderness Extremities: Present normal inspection and full ROM; Absent edema Skin: Present intact; Absent erythema Neuro: Present Grossly Intact, alert, awake and moves all extremities; Absent oriented x 3 Assessment and Plan *Assessment and plan (1) Acute on chronic respiratory failure with hypoxia and hypercapnia: Status: Acute Category: Medical Code(s): J96.21 - Acute and chronic respiratory failure with hypoxia; J96.22 - Acute and chronic respiratory failure with hypercapnia (2) REYMUNDO and COPD overlap syndrome: Status: Acute Category: Medical Code(s): G47.33 - Obstructive sleep apnea (adult) (pediatric); J44.9 - Chronic obstructive pulmonary disease, unspecified (3) Chronic bilateral pleural effusions: Status: Acute Category: Medical Code(s): J90 - Pleural effusion, not elsewhere classified (4) Tobacco dependence: Status: Acute Category: Medical Code(s): F17.200 - Nicotine dependence, unspecified, uncomplicated (5) Pulmonary hypertension: Status: Acute Category: Medical Code(s): I27.20 - Pulmonary hypertension, unspecified (6) Acute on chronic heart failure with preserved ejection fraction (HFpEF): Status: Acute Category: Medical Code(s): I50.33 - Acute on chronic diastolic (congestive) heart failure (7) Seizure disorder: Status: Acute Category: Medical Code(s): G40.909 - Epilepsy, unspecified, not intractable, without status epilepticus (8) Mood disorder: Status: Acute Category: Medical Code(s): F39 - Unspecified mood [affective] disorder (9) Cognitive impairment: Status: Acute Category: Medical Code(s): R41.89 - Other symptoms and signs involving cognitive functions and awareness Plan This is a 53-year-old female with BMI of 37, REYMUNDO/OHS/COPD overlap with pulmonary hypertension and HFpEF. She presented to the ED with cough, dyspnea and general weakness. Her cognitive impairment is noted. Showing response to diuresis. Weaning oxygen today. Continues to require inpatient management. Problems addressed as follows: Acute on chronic hypoxic and hypercapnic respiratory failure Bilateral pleural effusions Pulmonary hypertension REYMUNDO/OHS/COPD overlap with exacerbation Tobacco dependence Continue supplemental oxygen as needed for goal sats greater 90%. On 2 L on rounds, will wean to room air and monitor for response Continue DuoNebs every 6 hours scheduled, Pulmicort twice daily Prednisone 40 mg daily Doxycycline 100 mg twice daily x 5 days White count normal at 5.5. Repeat CBC, CMP, magnesium ordered for the morning. Acute on chronic HFpEF Monitor on telemetry. Diuresing well. Echo (07/2023) with normal EF and RVSP greater than 60 mmHg Continue Bumex 1 mg twice daily. Monitor for toxicity. Strict monitoring of electrolytes. Magnesium 1.9, potassium 4.0. Kidney function with BUN 16, creatinine 0.5. Continue carvedilol 3.125 mg twice daily, empagliflozin 10 mg daily, irbesartan 75 mg daily, spironolactone 25 mg daily. Seizure disorder Seizure precautions Continue divalproex 500 mg 3 times a day Mood disorder Cognitive impairment Continue Wellbutrin 300 mg daily, clonazepam 0.5 mg twice daily as needed Continue gabapentin 300 mg 3 times a day Continue trazodone 100 mg nightly The length of stay for this patient will be 2 midnights or greater due to above diagnoses. Full code Regular diet Lovenox 40 mg subcu daily
--- NOTE | 2024-03-31 17:31 | PC.NURSE ---
Pt Alert and oriented to self and place. On 2L NC. Pt has had multiple episodes of diarrhea this morning and stool sample was collected and sent to lab. Pt ambulates assist x1 to bedside commode. Pt has gotten anxious/emotional multiple times this shift but has been able to be comforted by talking through it. Pt up to bedside for meals and has ate 100% of all meals and has had multiple snacks/drinks throughout the day. Pt now resting in bed comfortably with no complaints at this time.
[2024-03-31 18:22] LABS: Chloride 94 mmol/L (98-107); Sodium 135 mmol/L (136-145)
[2024-03-31 18:23] LABS: Potassium 4.3 mmoL/L (3.5-5.1)
[2024-03-31 18:25] LABS: Blood Urea Nitrogen 17 mg/dl (7-17); Creatinine Clearance Estimated 105 mL/min (50-200); Estimated Glomerular Filt Rate 88 ml/min (>60); GFR (African American) 106 ML/MIN (>60)
[2024-03-31 18:26] LABS: Anion Gap 6.3 mEq/L (5-15); Calcium 7.9 mg/dl (8.4-10.2); Carbon Dioxide 39 mmol/L (22.0-30.0); Glucose 136 mg/dl (74-100)
[2024-03-31] MEDS: TRAZODONE 50MG TABLET 100 MG PO (21:30)
[2024-03-31] MEDS: ACETAMINOPHEN 500MG TAB 1000 MG PO (21:30)
[2024-04-01] VITALS (10 sets, daily range): BP systolic 104–155; BP diastolic 61–91; PULSE 60–75; RESP 16–18; TEMP 36.4–36.6; O2SAT 85–97; BMI 28.0; BMI 27.5
--- NOTE | 2024-04-01 06:16 | PC.NURSE ---
Patient is alert to herself and place; patient has occasional incoherent speech but remains pleasant. Patient was given a bed bath and hair was brushed by Osmin SRNA this shift. She has gotten up to the bedside commode to have a bowel movement this shift. Purewick is in place and functioning at this time. She has been tolerating 2 L of oxygen via nasal cannula well. Patient's lung sounds were diminished and expiratory wheezing could be heard during auscultation. Trace edema was noted in the patient's bilateral lower extremities. Patient was observed to have eyes closed, respirations even and unlabored, and no apparent distress or anxiety throughout the night. Patient reported having a headache earlier this shift; she was given Tylenol per SEP. Patient has rested comfortably and has not had any further complaints since receiving the Tylenol. She has also received her scheduled medications per SEP. Patient is currently resting supine in bed. No acute changes noted at this time. Bed alarm on. Call light within reach.
[2024-04-01] MEDS: IPRATROPIUM/ALBUTEROL 3 ML NEB IH ×2 (07:05→11:26)
[2024-04-01] MEDS: BUDESONIDE 0.5MG/2ML NEB 0.5 MG IH (07:05)
--- NOTE | 2024-04-01 07:51 | P.DS_ITS ---
General Admission date:: 03/30/24 Discharge date: 04/01/24 HPI HPI HPI: This is a 53-year-old female the presents the [facility] emergency department for evaluation of cough and shortness of air. She is accompanied by her niece who assists with the history. The patient lives with her older sister who provides care and medication dispensing assistance. She was hospitalized in December for shortness of air with cardiology and pulmonology evaluations. She is chronically prescribed home oxygen 2 L. She is chronically prescribed NIPPV therapy. She reports a croupy cough that is productive of y ellow sputum with no associated hemoptysis. She describes shortness of air and increasing dyspnea with exertion. She reports no pain with deep inspiration. She reports some right lower chest wall discomfort with movement but denies associated retro-sternal chest pain, palpitations or confusion. She recalls no falls or injuries. She describes subjective fever and chills. She has identified no associated nausea, vomiting, diarrhea or rashes. Her ED chest x- ray is consistent with her known bilateral pleural effusions and her proBNP is elevated at 11,000. Hospital Course Hospital Course Hospital Course: This is a 53-year-old female with BMI of 37, REYMUNDO/OHS/COPD overlap with pulmonary hypertension and HFpEF. She presented to the ED with cough, dyspnea and general weakness. Her cognitive impairment is noted. Showing response to diuresis. Able to wean oxygen to room air temporarily. Prior to discharge, room air sat of 85% was noted while at rest. Patient has home oxygen, continues to qualify for home oxygen. Continue 2 L as needed. Given her improvement however with diuresis, stability on baseline oxygen, improving labs, patient stable discharge home to complete treatment course. Problems addressed as follows: Acute on chronic hypoxic and hypercapnic respiratory failure Bilateral pleural effusions Pulmonary hypertension REYMUNDO/OHS/COPD overlap with exacerbation Tobacco dependence Patient initially requiring increased continuous oxygen from baseline. Able to wean to baseline oxygen by day of discharge. Treating with Joo and Twan. Started on doxycycline and prednisone. Will complete 5 days of antibiotics and steroids. White cell count remained normal at 7.9 on day of discharge. At baseline level of oxygen. Home health ordered at discharge. Acute on chronic HFpEF Echo (07/2023) with normal EF and RVSP greater than 60 mmHg. Initiated on aggressive diuresis with Bumex 1 mg twice daily. Negative fluid status during admission. Electrolytes remained stable with potassium 4.5, magnesium 1.8 on da y of discharge. Kidney function normal with BUN of 21, creatinine 0.5 on day of discharge. Will continue goal-directed therapy for her diastolic heart failure including carvedilol 3.125 mg twice daily, empagliflozin 10 mg daily, irbesartan 75 mg daily, spironolactone 25 mg daily. Resume Lasix 40 mg increased to twice daily. Seizure disorder Seizure precautions Continue divalproex 500 mg 3 times a day Mood disorder Cognitive impairment Continue Wellbutrin 300 mg daily, clonazepam 0.5 mg twice daily as needed Continue gabapentin 300 mg 3 times a day Continue trazodone 100 mg nightly Total time spent on discharge 36 minutes in counseling, documentation, chart review, and direct care with patient. Exam Data for Last 24 hours Vital signs and Labs for Last 24 Hours: Temp Pulse Resp BP Pulse Ox O2 Del Method O2 Flow Rate 97.6 F 64 16 155/91 H 94 L Nasal Cannula 2 04/01/24 04:00 04/01/24 07:05 04/01/24 04:00 04/01/24 04:00 04/01/24 07:05 04/01/24 07:05 04/01/24 07:05 FiO2 28 03/31/24 19:06 Laboratory Results - last 24 hr 03/31/24 18:00: Sodium 135 L, Potassium 4.3, Chloride 94 L, Carbon Dioxide 39 H, Anion Gap 6.3, BUN 17, Creatinine 0.70 D, Estimated Creat Clear 105, Estimated GFR 88, Est GFR ( Amer) 106 D, Glucose 136 H D, Calcium 7.9 L I & O for Last 24 hours: Intake & Output 03/29/24 03/30/24 03/31/24 04/01/24 23:59 23:59 23:59 23:59 Intake Total 1880 / 2120 240 / 240 Output Total 600 / 600 1800 / 1800 Balance -600 / 130 80 / 320 240 / 240 Weight 74.026 kg 71.713 kg 71.804 kg Constitutional Constitutional: no acute distress, average body habitus, chronically ill appearing and cooperative *Routine HEENT Exam Head: Present normocephalic and atraumatic ENT: Present mucous membranes moist *Routine Neck Exam Neck: Present supple, full ROM and normal carotid upstroke; Absent JVD, carotid bruit or lymphadenopathy *Routine Respiratory Exam Respiratory: Present rhonchi, normal respiratory effort and symmetric chest movement; Absent wheezes or crackles *Routine Cardiovascular Exam Cardiovascular: Present RRR, Normal S1 and Normal S2; Absent murmur or gallop *Routine Abdominal Exam Abdominal: Present soft and normoactive bowel sounds; Absent tenderness, distended or organomegaly *Routine Rectal Exam Patient deferred: visual exam *Routine Exam Patient deferred: external exam *Routine Extremities Exam Extremities: Present full ROM, pulses intact and normal capillary refill; Absent cyanosis, clubbing or edema *Routine Skin Exam Skin: Present intact and warm; Absent erythema *Routine Neurological Exam Neurological: Present alert and oriented X3; Absent sensory deficit or motor deficit Comments: child like disposition Routine Psychiatric Exam Psychiatric: Absent normal affect (Flat affect) Results Data Completed and Pending Labs on day of discharge: Labs from last 24 hours 03/31/24 18:00 Sodium 135 L Potassium 4.3 Chloride 94 L Carbon Dioxide 39 H Anion Gap 6.3 BUN 17 Creatinine 0.70 D Estimated Creat Clear 105 Estimated GFR 88 Est GFR ( Amer) 106 D Glucose 136 H D Calcium 7.9 L DS: Diagnosis Discharge Diagnosis (1) Acute on chronic respiratory failure with hypoxia and hypercapnia: Status: Acute Code(s): J96.21 - Acute and chronic respiratory failure with hypoxia; J96.22 - Acute and chronic respiratory failure with hypercapnia (2) REYMUNDO and COPD overlap syndrome: Status: Acute Code(s): G47.33 - Obstructive sleep apnea (adult) (pediatric); J44.9 - Chronic obstructive pulmonary disease, unspecified (3) Chronic bilateral pleural effusions: Status: Acute Code(s): J90 - Pleural effusion, not elsewhere classified (4) Tobacco dependence: Status: Acute Code(s): F17.200 - Nicotine dependence, unspecified, uncomplicated (5) Pulmonary hypertension: Status: Acute Code(s): I27.20 - Pulmonary hypertension, unspecified (6) Acute on chronic heart failure with preserved ejection fraction (HFpEF): Status: Acute Code(s): I50.33 - Acute on chronic diastolic (congestive) heart failure (7) Seizure disorder: Status: Acute Code(s): G40.909 - Epilepsy, unspecified, not intractable, without status epilepticus (8) Mood disorder: Status: Acute Code(s): F39 - Unspecified mood [affective] disorder (9) Cognitive impairment: Status: Acute Code(s): R41.89 - Other symptoms and signs involving cognitive functions and awareness Meds Home Medications and Allergies Home Medications ?Medication ?Instructions ?Recorded ?Confirmed ?Type trazodone 100 mg tablet 100 mg PO HS 01/18/24 03/30/24 History divalproex 500 mg tablet,delayed 500 mg PO TID #90 tabs 01/24/24 03/30/24 Rx release clonazepam 1 mg tablet 0.5 mg (1/2 x 1 mg) PO BIDP PRN 02/14/24 03/30/24 Rx Anxiety #30 tabs bupropion HCl 300 mg 24 hr tablet, 300 mg PO DAILY #90 tabs 02/23/24 03/30/24 Rx extended release empagliflozin 10 mg tablet 10 mg PO DAILY 90 days #90 tabs 02/23/24 03/30/24 Rx (Jardiance) dextromethorphan 20 mg-quinidine 1 cap PO BID #60 caps 03/20/24 03/30/24 Rx 10 mg capsule (Nuedexta) irbesartan 75 mg tablet 75 mg PO DAILY 30 days #30 tabs 03/20/24 03/30/24 Rx spironolactone 25 mg tablet 25 mg PO DAILY 30 days #30 tabs 03/20/24 03/30/24 Rx escitalopram oxalate 10 mg tablet 10 mg PO DAILY #90 tabs 03/30/24 03/30/24 Rx (Lexapro) albuterol sulfate 90 mcg/actuation 1 inh inhalation Q4HP PRN 03/31/24 03/31/24 History aerosol inhaler (Ventolin HFA) Shortness Of Breath gabapentin 300 mg capsule 300 mg PO TID 03/31/24 03/30/24 History ipratropium 0.5 mg-albuterol 3 mg 3 ml inhalation QIDP PRN shortness 03/31/24 03/31/24 History (2.5 mg base)/3 mL nebulization of breath or wheezing soln omeprazole 20 mg capsule,delayed 20 mg PO DAILY 03/31/24 03/31/24 History release carvedilol 3.125 mg tablet 3.125 mg PO BID 30 days #60 tabs 04/01/24 Rx doxycycline hyclate 100 mg tablet 100 mg PO BID 3 days #6 tabs 04/01/24 Rx furosemide 40 mg tablet 40 mg PO BIDL 30 days #60 tabs 04/01/24 Rx prednisone 20 mg tablet 40 mg (2 x 20 mg) PO DAILY 3 days 04/01/24 Rx #6 tabs New Prescriptions to Start Prescriptions: carvedilol Annette,Dickson doxycycline hyclate Annette,Dickson furosemide Annette,Dickson prednisone Annette,Dickson Allergies Allergy/AdvReac Type Severity Reaction Status Date / Time nicotine AdvReac Rash Verified 02/14/24 11:01 Discharge Plan Disposition Patient Disposition: Home Health Service Condition: Fair Discharge Order Discharge Orders: Discharge Order (Routine); Ordered 04/01/24 Ordered By: Dickson Bryant Follow up Plan Follow up with: Angeles Ling MD [Primary Care Provider] - Enter time for follow up (follows with Dr. Ling in [place]) Prescriptions/Medication Reconciliation: New prednisone 20 mg Tablet 40 mg PO DAILY 3 Days Qty: 6 0RF carvedilol 3.125 mg Tablet 3.125 mg PO BID 30 Days Qty: 60 0RF doxycycline hyclate 100 mg Tablet 100 mg PO BID 3 Days Qty: 6 0RF Continued divalproex 500 mg tablet,delayed release (DR/EC) 500 mg PO TID Qty: 90 4RF clonazepam 1 mg tablet 0.5 mg PO BIDP PRN (Reason: Anxiety) Qty: 30 2RF bupropion HCl 300 mg tablet extended release 24 hr 300 mg PO DAILY Qty: 90 0RF Jardiance 10 mg tablet 10 mg PO DAILY 90 Days Qty: 90 2RF Nuedexta 20-10 mg capsule 1 cap PO BID Qty: 60 3RF irbesartan 75 mg tablet 75 mg PO DAILY 30 Days Qty: 30 4RF spironolactone 25 mg tablet 25 mg PO DAILY 30 Days Qty: 30 4RF escitalopram oxalate [Lexapro] 10 mg tablet 10 mg PO DAILY Qty: 90 1RF trazodone 100 mg tablet 100 mg PO HS Patient Comments: TAKE 1 TABLET BY MOUTH ONCE DAILY AT BEDTIME ipratropium-albuterol 0.5 mg-3 mg(2.5 mg base)/3 mL solution for nebulization 3 ml inhalation QIDP PRN (Reason: shortness of breath or wheezing) gabapentin 300 mg capsule 300 mg PO TID omeprazole 20 mg capsule,delayed release(DR/EC) 20 mg PO DAILY albuterol sulfate [Ventolin HFA] 90 mcg/actuation HFA aerosol inhaler 1 inh inhalation Q4HP PRN (Reason: Shortness Of Breath) Changed furosemide 40 mg tablet 40 mg PO BIDL 30 Days Qty: 60 4RF Discontinued prednisone 5 mg tablet 10 mg PO DAILY Other Ambulatory Orders: Home Medical Equipment (Routine) Location: None Selected Ordered By: Dickson Bryant Problem Reconciliation Problems Reviewed?: Yes Patient Discharge Instructions ACTIVITY: Continue current activity DIET: continue same diet Patient Instructions: DI for Heart Failure Print Language: Yakut Providers Primary Care Provider: Angeles Ling Admit Provider: Dickson Bryant Attending Provider: Dickson Bryant
[2024-04-01 08:01] LABS: Basophils % 0.6 % (0.1-2.0); Eosinophils # 0.1 K/mm3 (0.0-0.4); Eosinophils % 0.6 % (0.1-12.0); Hematocrit 43.4 % (37.0-47.0); Hemoglobin 12.5 g/dL (12.2-16.2); Lymphocytes # 3.7 K/mm3 (0.7-4.5); Lymphocytes % 46.3 % (10-50); Mean Corpuscular HGB Conc 28.9 g/dL (31.8-35.4); Mean Corpuscular Hemoglobin 25.2 pg (27.0-31.2); Mean Corpuscular Volume 87.3 fl (81-99); Mean Platelet Volume 8.4 fl (7.4-10.4); Monocytes # 0.5 K/mm3 (0.1-1.0); Neutrophils # 3.7 K/mm3 (1.8-7.8); Neutrophils % 46.5 % (37.0-80.0); Platelet Count 284 K/mm3 (142-424); Red Blood Count 4.97 M/mm3 (4.20-5.40); Red Cell Distribution Width 17.4 % (11.5-17.5); White Blood Count 7.9 K/mm3 (4.8-10.8)
--- NOTE | 2024-04-01 08:04 | PC.NURSE ---
Addendum entered by Ryann Kendrick RN 04/01/24 11:33: dr torres has now taken pt off of O2 to see how she tolerates before sending her home. Original Note: pt O2 sat was 90-92% on RA. pt placed on 1L NC with sats 94-95%
[2024-04-01] MEDS: CARVEDILOL 3.125MG TABLET 3.125 MG PO (08:11)
[2024-04-01] MEDS: ENOXAPARIN 40MG/0.4ML SYRINGE 40 MG SQ (08:11)
[2024-04-01] MEDS: CITALOPRAM 20MG TABLET 20 MG PO (08:12)
[2024-04-01] MEDS: PANTOPRAZOLE 40MG TABLET 40 MG PO (08:12)
[2024-04-01] MEDS: DOXYCYCLINE HYCL 100 MG TABLET PO (08:12)
[2024-04-01] MEDS: predniSONE 20MG TAB 40 MG PO (08:12)
[2024-04-01] MEDS: GABAPENTIN 300MG CAPSULE 300 MG PO ×2 (08:12→12:04)
[2024-04-01] MEDS: SPIRONOLACTONE 25MG TABLET 25 MG PO (08:12)
[2024-04-01] MEDS: DIVALPROEX 500MG (Delayed-Release) TABLET 500 MG PO ×2 (08:12→12:04)
[2024-04-01] MEDS: EMPAGLIFLOZIN 10MG TABLET 10 MG PO (08:12)
[2024-04-01] MEDS: IRBESARTAN 75MG TABLET 75 MG PO (08:12)
[2024-04-01] MEDS: BUMETANIDE 1MG/4ML VIAL 1 MG IV (08:13)
[2024-04-01] MEDS: CALCIUM POLYCARBOPHIL 625MG TAB 1250 MG PO (08:13)
[2024-04-01 08:21] LABS: Alanine Aminotransferase 8 U/L (12-78); Albumin Level 3.1 g/dl (3.5-5.0); Albumin/Globulin Ratio 0.9 (1.1-1.8); Alkaline Phosphatase 81 U/L (38-126); Anion Gap 4.5 mEq/L (5-15); Aspartate Amino Transferase 52 U/L (14-36); Bilirubin,Total 0.5 mg/dl (0.2-1.3); Blood Urea Nitrogen 21 mg/dl (7-17); Calcium 8.2 mg/dl (8.4-10.2); Carbon Dioxide 38 mmol/L (22.0-30.0); Chloride 97 mmol/L (98-107); Creatinine Clearance Estimated 147 mL/min (50-200); Estimated Glomerular Filt Rate 129 ml/min (>60); GFR (African American) 156 ML/MIN (>60); Globulin 3.6 g/dL (1.3-3.2); Glucose 80 mg/dl (74-100); Magnesium 1.8 mg/dl (1.6-2.3); Potassium 4.5 mmoL/L (3.5-5.1); Sodium 135 mmol/L (136-145); Total Protein,Serum 6.7 g/dl (6.3-8.2)
[2024-04-01] MEDS: clonazePAM 0.5MG TABLET 0.5 MG PO (08:26)
--- NOTE | 2024-04-01 12:39 | PC.NURSE ---
Addendum entered by Ryann Kendrick RN 04/01/24 12:52: contacted sister to update on discharge plan. stated pt wears 02 at home and has a portable tank. will be bringing tank with her when picking pt up to go home Original Note: assessed pt after being placed on RA by Dr. Bryant. Pt O2 was 85%. Placed on 1L with sat returning to 93%. pt will be going home with o2 therapy per MD.
[2024-04-01] MEDS: ACETAMINOPHEN 500MG TAB 1000 MG PO (16:05)
--- NOTE | 2024-04-03 12:12 | SW/DCPLANNER ---
Patient/family not interested in home health services at this time.
[2024-04-03 13:21] LABS: Clostridium Difficile A/B, PCR Detected (NotDetected)
--- NOTE | 2024-04-03 19:03 | P.EN_ITS ---
Informed today that patient's infectious diarrhea panel from 03/31 positive for C. difficile. Called patient at [phone] and spoke with her sister. Informed sister that Dr. Frank called in vancomycin 125 p.o. 4 times daily x 10 days for C. difficile diarrhea amelioration. Instructed patient sister to tell patient to take medication for 10 days, and then to follow-up with her primary care physician for further instructions. Prescription called into [facility] pharmacy via electronic prescription by Dr. Frank today.
== END 2024-04-01 16:46 | disposition home health service (06) ==
LOC: ER 21:03 → 2ND 21:44
PROVIDERS: Family Medicine; Admitting Provider Internal Medicine Adolescent Medicine; Emergency Provider Emergency Medicine; PCP Family Medicine; Visit Provider Internal Medicine Adolescent Medicine
DX: J96.21 Acute and chronic respiratory failure with hypoxia (principal); J96.22 Acute and chronic respiratory failure with hypercapnia; G47.33 Obstructive sleep apnea (adult) (pediatric); J44.9 Chronic obstructive pulmonary disease, unspecified; I50.33 Acute on chronic diastolic (congestive) heart failure; I27.20 Pulmonary hypertension, unspecified; J90 Pleural effusion, not elsewhere classified; G40.909 Epilepsy, unspecified, not intractable, without status epilepticus; F39 Unspecified mood [affective] disorder; R41.89 Other symptoms and signs involving cognitive functions and awareness; Z68.37 Body mass index [BMI] 37.0-37.9, adult; Z87.891 Personal history of nicotine dependence; Z79.899 Other long term (current) drug therapy; Z99.81 Dependence on supplemental oxygen; Z09 Encounter for follow-up examination after completed treatment for conditions other than malignant neoplasm; Z99.89 Dependence on other enabling machines and devices
CPT/HCPCS: 36415; 71045; 80048; 80053; 82803; 83735; 83880; 85025; 87507; 87636; 94640; 94761; 99291; G0378; J1650; J1939; J1940; J7620

== ENCOUNTER 2024-05-24 18:58 | Emergency (ER) | payer MEDICAID, SELFPAY ==
[2024-05-24] VITALS (7 sets, daily range): BP systolic 97–108; BP diastolic 54–68; PULSE 78–102; RESP 16–22; TEMP 36.6–36.9; O2SAT 86–100; BMI 28.2
--- NOTE | 2024-05-24 19:09 | HMH.EDGENADL ---
Discharge Plan Disposition Patient Disposition: Home, Self-Care Condition: Good Prescriptions Prescriptions: New doxycycline hyclate 100 mg capsule 100 mg PO BID 5 Days Qty: 10 0RF prednisone 50 mg tablet 50 mg PO DAILY 5 Days Qty: 5 0RF Discontinued prednisone 20 mg Tablet 40 mg PO DAILY 3 Days Qty: 6 0RF doxycycline hyclate 100 mg Tablet 100 mg PO BID 3 Days Qty: 6 0RF No Action divalproex 500 mg tablet,delayed release (DR/EC) 500 mg PO TID Qty: 90 4RF clonazepam 1 mg tablet 0.5 mg PO BIDP PRN (Reason: Anxiety) Qty: 30 2RF bupropion HCl 300 mg tablet extended release 24 hr 300 mg PO DAILY Qty: 90 0RF Jardiance 10 mg tablet 10 mg PO DAILY 90 Days Qty: 90 2RF Nuedexta 20-10 mg capsule 1 cap PO BID Qty: 60 3RF irbesartan 75 mg tablet 75 mg PO DAILY 30 Days Qty: 30 4RF spironolactone 25 mg tablet 25 mg PO DAILY 30 Days Qty: 30 4RF escitalopram oxalate [Lexapro] 10 mg tablet 10 mg PO DAILY Qty: 90 1RF ipratropium-albuterol 0.5 mg-3 mg(2.5 mg base)/3 mL solution for nebulization 3 ml inhalation QID PRN (Reason: shortness of breath or wheezing) 90 Days Qty: 270 3RF Nurtec ODT 75 mg tablet,disintegrating 75 mg PO ONCE PRN (Reason: migraine headache) Qty: 10 12RF gabapentin 300 mg capsule 300 mg PO TID Qty: 90 0RF trazodone 100 mg tablet 100 mg PO HS Patient Comments: TAKE 1 TABLET BY MOUTH ONCE DAILY AT BEDTIME ipratropium-albuterol 0.5 mg-3 mg(2.5 mg base)/3 mL solution for nebulization 3 ml inhalation QIDP PRN (Reason: shortness of breath or wheezing) omeprazole 20 mg capsule,delayed release(DR/EC) 20 mg PO DAILY albuterol sulfate [Ventolin HFA] 90 mcg/actuation HFA aerosol inhaler 1 inh inhalation Q4HP PRN (Reason: Shortness Of Breath) carvedilol 3.125 mg Tablet 3.125 mg PO BID 30 Days Qty: 60 0RF furosemide 40 mg tablet 40 mg PO BIDL 30 Days Qty: 60 4RF vancomycin 125 mg capsule 125 mg PO QID Qty: 40 0RF Referrals Follow up/Referrals: Angeles Ling MD [Primary Care Provider] - See instructions Activity Restrictions/Add. Instructions Additional Instructions/Restrictions: I have prescribed a course of antibiotics as well as a course of steroids. Please continue to use your nebulizer machine as needed. Please return with any new or worsening symptoms. Clinical Impressions Clinical Impression: Acute exacerbation of chronic obstructive pulmonary disease Print Language Print Language: [place] Discharge ED Provider: Otoniel Queen General Adult HPI General Chief complaint: Shortness of Breath/Dyspnea Stated complaint: SOA Time Seen by Provider: 05/24/24 19:08 History of Present Illness HPI narrative: The patient presents with complaints of breathing issues, lung pain, and decreased appetite. She has been feeling unwell, crying, and complaining. Earlier in the day, she experienced chest pain, which she later described as hurting in her lungs. She denies having any fever but mentions occasional nausea and a decrease in food intake. The patient has been more fatigued and has been coughing up secretions. The patient has a history of COPD and is currently on 2 liters of oxygen. She denies any recent exposure to sick individuals. She experiences pain when coughing and is noted to be wheezy during the examination. The patient has not used a nebulizer machine or received any breathing treatments at home. The patient's caregiver reports that it's sometimes hard to tell how sick the patient is. The caregiver notes that the patient has been laying around a little bit more and is coughing up a lot of stuff. The patient confirms that it hurts when she coughs. Please note that above description of symptoms, in this electronic medical record under categorization of recalled from ER triage doctor by RN are reflective of an initial nursing assessment, however, is not reflective of my full history and physical exam that was personally taken and clarified. Consequentially, this preceding description of symptoms, which may include the patient's categorized chief complaint in the EMR, do not reflect my personal clinical impression, and the ultimate description of history of present illness and patient stated complaints should be deferred to this section of the note. Unless stated otherwise or congruent with this section of the note, additional signs, symptoms, or incongruence should be interpreted as inaccurate with my clinical impression. Related Data Home Medications ?Medication ?Instructions ?Recorded ?Confirmed trazodone 100 mg tablet 100 mg PO HS 01/18/24 04/10/24 albuterol sulfate 90 mcg/actuation 1 inh inhalation Q4HP PRN 03/31/24 04/10/24 aerosol inhaler (Ventolin HFA) Shortness Of Breath ipratropium 0.5 mg-albuterol 3 mg 3 ml inhalation QIDP PRN shortness 03/31/24 04/10/24 (2.5 mg base)/3 mL nebulization of breath or wheezing soln omeprazole 20 mg capsule,delayed 20 mg PO DAILY 03/31/24 04/10/24 release Previous Rx's ?Medication ?Instructions ?Recorded divalproex 500 mg tablet,delayed 500 mg PO TID #90 tabs 01/24/24 release clonazepam 1 mg tablet 0.5 mg (1/2 x 1 mg) PO BIDP PRN 02/14/24 Anxiety #30 tabs bupropion HCl 300 mg 24 hr tablet, 300 mg PO DAILY #90 tabs 02/23/24 extended release empagliflozin 10 mg tablet 10 mg PO DAILY 90 days #90 tabs 02/23/24 (Jardiance) dextromethorphan 20 mg-quinidine 1 cap PO BID #60 caps 03/20/24 10 mg capsule (Nuedexta) irbesartan 75 mg tablet 75 mg PO DAILY 30 days #30 tabs 03/20/24 spironolactone 25 mg tablet 25 mg PO DAILY 30 days #30 tabs 03/20/24 escitalopram oxalate 10 mg tablet 10 mg PO DAILY #90 tabs 03/30/24 (Lexapro) carvedilol 3.125 mg tablet 3.125 mg PO BID 30 days #60 tabs 04/01/24 furosemide 40 mg tablet 40 mg PO BIDL 30 days #60 tabs 04/01/24 vancomycin 125 mg capsule 125 mg PO QID #40 caps 04/03/24 ipratropium 0.5 mg-albuterol 3 mg 3 ml inhalation QID PRN shortness 04/10/24 (2.5 mg base)/3 mL nebulization of breath or wheezing 90 days #270 soln mL rimegepant 75 mg disintegrating 75 mg PO ONCE PRN migraine 04/26/24 tablet (Nurtec ODT) headache #10 tabs gabapentin 300 mg capsule 300 mg PO TID #90 caps 05/18/24 doxycycline hyclate 100 mg capsule 100 mg PO BID 5 days #10 caps 05/24/24 prednisone 50 mg tablet 50 mg PO DAILY 5 days #5 tabs 05/24/24 Allergies Allergy/AdvReac Type Severity Reaction Status Date / Time nicotine AdvReac Rash Verified 04/10/24 14:40 [facility] Disclaimer: The information contained in this section may have been updated after the patient was seen, as this information can be updated by other users. Medical History (Updated 05/24/24 @ 22:40 by Otoniel Queen MD) Chronic asthmatic bronchitis Closed nondisplaced fracture of fifth metatarsal bone of left foot with routine healing Avulsion fracture Respiratory failure with hypercapnia Right lower lobe pneumonia Encounter for general medical examination Lower GI bleeding Abnormal laboratory test result Asthma exacerbation in COPD Acute chest wall pain Pneumonia UTI (urinary tract infection) Recurrent pneumonia Acute viral syndrome Abnormal electrocardiogram [ECG] [EKG] Cough Diarrhea REYMUNDO (obstructive sleep apnea) (HFpEF) heart failure with preserved ejection fraction Oxygen dependent Neuropathy Smoking greater than 30 pack years Mediastinal lymphadenopathy Pulmonary embolism Dyspnea on exertion Acute diastolic CHF (congestive heart failure) Pulmonary hypertension Hilar lymphadenopathy Pleural effusion on right Pneumonia Anxiety disorder Seizure disorder Mood disorder Incontinence History of COVID-19 Asthma History of gastroesophageal reflux (GERD) Allergies Depression Anxiety Urinary tract infection Migraine COPD (chronic obstructive pulmonary disease) Hyperlipidemia Hypertension Surgical History History of colonoscopy History of breast biopsy History of hysterectomy History of cholecystectomy Family History Father Lung cancer Sister Ovarian cancer Kidney disease Lung cancer Mother Kidney disease Other Family history of diabetes mellitus type II Family history of hyperlipidemia Family history of hypertension Family history of migraine headaches Family history of myocardial infarction Social History Smoking Status: Current every day smoker tobacco type: cigarettes packs per day: 1 alcohol intake: never counseling provided: none substance use type: denies use current occupational status: disabled Travel in the last 8 weeks: None caregiver/support person: Yes household members: caregiver housing: assisted living facility lives independently: No do you feel safe at home: Yes victim of physical abuse: No victim of emotional abuse: No victim of sexual abuse: No would you like helpful sources: No Other Medical History Have you received the Flu Vaccine for this season: No Have you received the Pneumonia Vaccine: No ROS Obtained: Yes other As per HPI Physical Exam General General appearance: alert and in no apparent distress Head Head exam: atraumatic and normocephalic Eye Eye exam: Present normal appearance Neck Neck exam: Present normal inspection Chest Chest inspection: Present normal inspection and symmetric chest wall rise Respiratory Respiratory exam: Present wheezes, accessory muscle use and prolonged expiratory phase Cardiovascular Cardiovascular exam: Present regular rate and normal rhythm Abdominal Exam Abdominal exam: Present soft Neurological Exam Neurological exam: Present alert and oriented X3 Psychiatric Psychiatric exam: Present normal affect and normal mood Skin Skin exam: Present warm and dry Medical Decision Making Medical Records Medical records reviewed: Yes I reviewed the patient's medical records. Screening: Per USPSTF and CDC recommendations, given the prevalence of disease in our region, it is our hospital?s policy to screen for HIV and viral Hepatitis for all patients aged 18 and over and those with ongoing risk factors. Vlad Inquiry Pt receiving controlled substance: No Vital Signs: 05/24/24 18:59 05/24/24 19:33 05/24/24 19:52 Temperature 98.5 F Temperature Source Oral Pulse Rate 93 H 92 H Pulse Rate [Right] 102 H Respiratory Rate 22 Blood Pressure 102/66 L Blood Pressure [Right Arm] 108/68 L Blood Pressure Mean [Right Arm] 81 Blood Pressure Source Blood Pressure Position 02 Sat by Pulse Oximetry 86 L 92 L Oxygen Delivery Method Nasal Cannula Oxygen Flow Rate (LPM) 2 05/24/24 19:52 05/24/24 20:00 05/24/24 20:30 Temperature Temperature Source Pulse Rate 91 H 83 80 Pulse Rate [Right] Respiratory Rate Blood Pressure 97/54 L 102/63 L Blood Pressure [Right Arm] Blood Pressure Mean [Right Arm] Blood Pressure Source Blood Pressure Position 02 Sat by Pulse Oximetry 93 L 95 Oxygen Delivery Method Oxygen Flow Rate (LPM) 05/24/24 21:12 05/24/24 21:12 05/24/24 22:50 Temperature 97.8 F Temperature Source Oral Pulse Rate 84 86 78 Pulse Rate [Right] Respiratory Rate 16 Blood Pressure 102/63 L Blood Pressure [Right Arm] Blood Pressure Mean [Right Arm] Blood Pressure Source Automatic Cuff Blood Pressure Position Supine 02 Sat by Pulse Oximetry Oxygen Delivery Method Nasal Cannula Oxygen Flow Rate (LPM) Lab Data Lab Results 05/24/24 19:27: VBG pH 7.39, VBG pCO2 57.6 H, VBG pO2 56.0 H, VBG HCO3 34.0 H, VBG Total CO2 35.8 H, VBG O2 Saturation 90.1 H, VBG Base Excess 9.0 H, VBG Lactic Acid 1.1 05/24/24 19:46: WBC 7.4, RBC 4.15 L, Hgb 10.9 L, Hct 34.8 L, MCV 83.8, MCH 26.2 L, MCHC 31.2 L, RDW 16.4, Plt Count 316, MPV 7.5, Neut % (Auto) 66.3, Lymph % (Auto) 24.1, Rush % (Auto) 7.9, Eos % (Auto) 1.1, Baso % (Auto) 0.6, Neut # (Auto) 4.9, Lymph # (Auto) 1.8, Rush # (Auto) 0.6, Eos # (Auto) 0.1, Baso # (Auto) 0.0, Sodium 140, Potassium 4.5, Chloride 100, Carbon Dioxide 39 H, Anion Gap 5.5, BUN 18 H, Creatinine 0.60, Estimated Creat Clear 124, Estimated GFR 105, Est GFR ( Amer) 127, Glucose 108 H, Calcium 7.8 L, Magnesium 1.9, Total Bilirubin 0.3, AST 15, ALT 9 L, Alkaline Phosphatase 83, Troponin I < 0.01, NT-Pro-B Natriuret Pep 1580 H, Total Protein 6.6, Albumin 2.9 L, Globulin 3.7 H, Albumin/Globulin Ratio 0.8 L, HIV 1&2 Antibody Rapid Nonreactive 05/24/24 19:51: SARS-CoV-2 (PCR) Not detected, Influenza A Untype (PCR) Not detected, Influenza Type B (PCR) Not detected 05/24/24 22:04: Troponin I < 0.01 05/24/24 19:46 05/24/24 19:46 Orders (Tests/Meds): ED MEDICATIONS Discontinued Medications Generic Name Dose Route Start Last Admin Trade Name Freq PRN Reason Stop Dose Admin Albuterol/Ipratropium 3 ml 10/24/24 19:25 05/24/24 19:34 Ipratropium/Albuterol 3 Ml Neb IH 05/24/24 19:26 3 ml ONCE ONE Administration Albuterol/Ipratropium 3 ml 05/24/24 20:42 05/24/24 21:00 Ipratropium/Albuterol 3 Ml Neb IH 05/24/24 20:43 3 ml ONCE ONE Administration Methylprednisolone Sodium Succinate 80 mg 05/24/24 19:25 05/24/24 19:36 Methylprednisolone Sod Succ 40mg Vial IV 05/24/24 19:26 80 mg ONCE ONE Administration ORDERS Category Date Time Status XR chest portable Stat Exams 05/24/24 19:25 Completed BNP [NT Pro Brain Natriuretic Pep.] Stat Lab 05/24/24 19:46 Completed CBC w/Auto Diff [Complete Blood Count Auto Diff] Stat Lab 05/24/24 19:46 Completed CMP [Comprehensive Metabolic Panel] Stat Lab 05/24/24 19:46 Completed HIV (1&2) Antibody Rapid Stat Lab 05/24/24 19:46 Completed Hep C Ab with Reflex to RNA Stat Lab 05/24/24 19:46 Received MAG [Magnesium] Stat Lab 05/24/24 19:46 Completed Rapid PCR Covid and Flu A/B Stat Lab 05/24/24 19:51 Completed Troponin I Q3H Lab 05/24/24 19:46 Completed Troponin I Q3H Lab 05/24/24 22:04 Completed VBG [Venous Blood Gas] Stat RT 05/24/24 19:27 Completed HEART Score History (anamnesis): Slightly suspicious ECG: Non-specific disturbance Age: 45-65 years Risk factors: 3 or more risk factors Troponin: </= normal limit HEART Score: 4 Medical Decision Narrative: Patient with history and exam per above presenting for evaluation of shortness of breath, chest pain Diagnoses considered include COPD exacerbation, referred pain from pneumonia, ACS, among others ED workup and treatment included: ED MEDICATIONS Discontinued Medications Generic Name Dose Route Start Last Admin Trade Name Freq PRN Reason Stop Dose Admin Albuterol/Ipratropium 3 ml 05/24/24 19:25 05/24/24 19:34 Ipratropium/Albuterol 3 Ml Neb IH 05/24/24 19:26 3 ml ONCE ONE Administration Albuterol/Ipratropium 3 ml 05/24/24 20:42 05/24/24 21:00 Ipratropium/Albuterol 3 Ml Neb IH 05/24/24 20:43 3 ml ONCE ONE Administration Methylprednisolone Sodium Succinate 80 mg 05/24/24 19:25 05/24/24 19:36 Methylprednisolone Sod Succ 40mg Vial IV 05/24/24 19:26 80 mg ONCE ONE Administration ORDERS Category Date Time Status XR chest portable Stat Exams 05/24/24 19:25 Completed BNP [NT Pro Brain Natriuretic Pep.] Stat Lab 05/24/24 19:46 Completed CBC w/Auto Diff [Complete Blood Count Auto Diff] Stat Lab 05/24/24 19:46 Completed CMP [Comprehensive Metabolic Panel] Stat Lab 05/24/24 19:46 Completed HIV (1&2) Antibody Rapid Stat Lab 05/24/24 19:46 Completed Hep C Ab with Reflex to RNA Stat Lab 05/24/24 19:46 Received MAG [Magnesium] Stat Lab 05/24/24 19:46 Completed Rapid PCR Covid and Flu A/B Stat Lab 05/24/24 19:51 Completed Troponin I Q3H Lab 05/24/24 19:46 Completed Troponin I Q3H Lab 05/24/24 22:04 Completed VBG [Venous Blood Gas] Stat RT 05/24/24 19:27 Completed Labs were independently interpreted by me, significant for no leukocytosis, compensated respiratory acidosis, troponins within normal limits x 2 Imaging was independently visualized and interpreted by me, significant for no acute findings Please refer to radiology report for full details. My clinical impression at this time is most consistent with COPD exacerbation. Patient has improvement of symptoms and improved respiratory status upon repeat evaluation. I discussed my clinical impression with patient and answered all questions. At this time, the evidence for any other entities in the differential is insufficient to warrant any further testing or ED observation. This was explained to the patient/family member. The patient/family member were advised that persistent or worsening symptoms require further evaluation. Critical Care Critical Care Time Critical Care Time: No
--- NOTE | 2024-05-24 19:25 | XR_ITS ---
PROCEDURE INFORMATION: Exam: XR Chest Exam date and time: 05/24/2024 7:27 PM Age: 53 years old Clinical indication: Cough; Additional info: SOA, HX copd TECHNIQUE: Imaging protocol: Radiologic exam of the chest. Views: 1 view. Total images: 1 COMPARISON: CR XR CHEST PORTABLE 03/30/2024 7:16 PM FINDINGS: Lungs: Calcified hilar lymph nodes. Calcified pulmonary granuloma. Chronic right greater than left basilar airspace opacity/consolidation reflecting atelectasis, pneumonia, or rounded atelectasis. Pleural spaces: Similar small bilateral pleural effusions. No pneumothorax. Heart/Mediastinum: Stable mild cardiomegaly. No mediastinal widening. Bones/joints: Osteopenia. Remote healed fracture deformities bilateral proximal humeri. Partially visualized moderate degenerative changes thoracic spine and bilateral shoulders/AC joints. IMPRESSION: 1. Stable chest radiograph. 2. Chronic small bilateral pleural effusions 3. Similar bibasilar airspace consolidation reflecting pneumonia, atelectasis, or fibrosis/rounded atelectasis. 4. Mild cardiomegaly without vascular congestion 5. Remote calcified granulomatous disease
[2024-05-24] MEDS: IPRATROPIUM/ALBUTEROL 3 ML NEB IH ×2 (19:34→21:00)
[2024-05-24] MEDS: METHYLPREDNISOLONE SOD SUCC 40MG VIAL 80 MG IV (19:36)
[2024-05-24 19:49] LABS: Lactate Venous 1.1 mmol/L (0.4-2.0); VBG Oxygen Saturation 90.1 % (50-70); VBG PH 7.39 mmol/L (7.31-7.41); VBG Total CO2 35.8 mmol/L (23-27)
[2024-05-24 19:50] LABS: VBG PCO2 57.6 mmol/L (35-51)
--- NOTE | 2024-05-24 19:54 | PC.NURSE ---
covid swab sent to lab @ 19:53
[2024-05-24 19:58] LABS: Basophils % 0.6 % (0.1-2.0); Eosinophils # 0.1 K/mm3 (0.0-0.4); Eosinophils % 1.1 % (0.1-12.0); Hematocrit 34.8 % (37.0-47.0); Hemoglobin 10.9 g/dL (12.2-16.2); Lymphocytes # 1.8 K/mm3 (0.7-4.5); Lymphocytes % 24.1 % (10-50); Mean Corpuscular HGB Conc 31.2 g/dL (31.8-35.4); Mean Corpuscular Hemoglobin 26.2 pg (27.0-31.2); Mean Corpuscular Volume 83.8 fl (81-99); Mean Platelet Volume 7.5 fl (7.4-10.4); Monocytes # 0.6 K/mm3 (0.1-1.0); Monocytes % 7.9 % (1.7-9.3); Neutrophils # 4.9 K/mm3 (1.8-7.8); Neutrophils % 66.3 % (37.0-80.0); Platelet Count 316 K/mm3 (142-424); Red Blood Count 4.15 M/mm3 (4.20-5.40); Red Cell Distribution Width 16.4 % (11.5-17.5); White Blood Count 7.4 K/mm3 (4.8-10.8)
[2024-05-24 19:59] LABS: Coronavirus 19, PCR Not Detected (NotDetected); Influenza A, PCR Not Detected (NotDetected); Influenza B, PCR Not Detected (NotDetected)
[2024-05-24 20:03] LABS: Albumin Level 2.9 g/dl (3.5-5.0); Chloride 100 mmol/L (98-107); Potassium 4.5 mmoL/L (3.5-5.1); Sodium 140 mmol/L (136-145)
[2024-05-24 20:06] LABS: Alanine Aminotransferase 9 U/L (12-78); Albumin/Globulin Ratio 0.8 (1.1-1.8); Alkaline Phosphatase 83 U/L (38-126); Anion Gap 5.5 mEq/L (5-15); Aspartate Amino Transferase 15 U/L (14-36); Bilirubin,Total 0.3 mg/dl (0.2-1.3); Blood Urea Nitrogen 18 mg/dl (7-17); Calcium 7.8 mg/dl (8.4-10.2); Carbon Dioxide 39 mmol/L (22.0-30.0); Creatinine Clearance Estimated 124 mL/min (50-200); Estimated Glomerular Filt Rate 105 ml/min (>60); GFR (African American) 127 ML/MIN (>60); Globulin 3.7 g/dL (1.3-3.2); Glucose 108 mg/dl (74-100); Magnesium 1.9 mg/dl (1.6-2.3); Total Protein,Serum 6.6 g/dl (6.3-8.2)
[2024-05-24 20:16] LABS: NT Pro Brain Natriuretic Pep. 1580 pg/mL (0-125)
[2024-05-24 20:19] LABS: Troponin I < 0.01 ng/ml (0.00-0.034)
[2024-05-24 21:35] LABS: HIV (1&2) Antibody Rapid NONREACTIVE (NONREACTIVE)
[2024-05-24 22:31] LABS: Troponin I < 0.01 ng/ml (0.00-0.034)
[2024-05-26 08:51] LABS: HCV Ab Non Reactive (Non Reactive)
== END 2024-05-24 22:51 | disposition home or self-care (01) ==
PROVIDERS: Emergency Provider Emergency Medicine; PCP Family Medicine
DX: J44.1 Chronic obstructive pulmonary disease with (acute) exacerbation (principal); R06.02 Shortness of breath; R63.8 Other symptoms and signs concerning food and fluid intake; R07.1 Chest pain on breathing; R06.2 Wheezing; R05.9 Cough, unspecified; F17.210 Nicotine dependence, cigarettes, uncomplicated
CPT/HCPCS: 71045; 80053; 82803; 83735; 83880; 84484; 85025; 86803; 87389; 87636; 96374; 99283; J2919; J7620

== ENCOUNTER 2024-06-02 22:02 | Observation (INO) | payer MEDICAID, SELFPAY ==
--- NOTE | 2024-06-02 21:59 | ECG_ITS ---
APPROVED REPORT Exam: Resting ECG HR:85 bpm ECG Measurements Heart Rate 85 AXES [place] 150 P 73 QRSd 120 QRS 119 QT 372 T 69 QTc 414 Conclusion SINUS RHYTHM POSSIBLE RIGHT VENTRICULAR HYPERTROPHY [SOME/ALL OF: PROMINENT R IN V1, LATE TRANSITION, RAD, JACKIE, SSS] ABNORMAL ECG UNCONFIRMED REPORT Electronically signed by : Dickson Pittman, 06/02/2024 23:21:17
[2024-06-02 22:02] VITALS: BP 111/70; PULSE 89; RESP 25; TEMP 36.9; O2SAT 95; BMI 30.3
--- NOTE | 2024-06-02 22:04 | ED_ITS ---
<Statement entered by Tabby Pittman MD - 06/02/24 23:15> I was consulted by the ZACH, and we discussed the complexity of the problems being addressed. I approved the treatment and management plan for this patient's care in the emergency department, thus performing a substantive portion of the medical decision making. Tabby Pittman MD, AZRA, FACEP Discharge Plan Prescriptions Prescriptions: No Action divalproex 500 mg tablet,delayed release (DR/EC) 500 mg PO TID Qty: 90 4RF clonazepam 1 mg tablet 0.5 mg PO BIDP PRN (Reason: Anxiety) Qty: 30 2RF bupropion HCl 300 mg tablet extended release 24 hr 300 mg PO DAILY Qty: 90 0RF Jardiance 10 mg tablet 10 mg PO DAILY 90 Days Qty: 90 2RF Nuedexta 20-10 mg capsule 1 cap PO BID Qty: 60 3RF irbesartan 75 mg tablet 75 mg PO DAILY 30 Days Qty: 30 4RF spironolactone 25 mg tablet 25 mg PO DAILY 30 Days Qty: 30 4RF escitalopram oxalate [Lexapro] 10 mg tablet 10 mg PO DAILY Qty: 90 1RF ipratropium-albuterol 0.5 mg-3 mg(2.5 mg base)/3 mL solution for nebulization 3 ml inhalation QID PRN (Reason: shortness of breath or wheezing) 90 Days Qty: 270 3RF Nurtec ODT 75 mg tablet,disintegrating 75 mg PO ONCE PRN (Reason: migraine headache) Qty: 10 12RF gabapentin 300 mg capsule 300 mg PO TID Qty: 90 0RF trazodone 100 mg tablet 100 mg PO HS Patient Comments: TAKE 1 TABLET BY MOUTH ONCE DAILY AT BEDTIME doxycycline hyclate 100 mg capsule 100 mg PO BID 5 Days Qty: 10 0RF prednisone 50 mg tablet 50 mg PO DAILY 5 Days Qty: 5 0RF ipratropium-albuterol 0.5 mg-3 mg(2.5 mg base)/3 mL solution for nebulization 3 ml inhalation QIDP PRN (Reason: shortness of breath or wheezing) omeprazole 20 mg capsule,delayed release(DR/EC) 20 mg PO DAILY albuterol sulfate [Ventolin HFA] 90 mcg/actuation HFA aerosol inhaler 1 inh inhalation Q4HP PRN (Reason: Shortness Of Breath) carvedilol 3.125 mg Tablet 3.125 mg PO BID 30 Days Qty: 60 0RF furosemide 40 mg tablet 40 mg PO BIDL 30 Days Qty: 60 4RF vancomycin 125 mg capsule 125 mg PO QID Qty: 40 0RF Referrals Follow up/Referrals: Angeles Ling MD [Primary Care Provider] - See instructions Print Language Print Language: [place]guill[place] Discharge ED Provider: Tabby Pittman HPI General Stated Complaint: Chest Pain Time Seen by Provider: 06/02/24 22:04 History of Present Illness HPI narrative: Patient presents for evaluation of chest pain. Patient has a very long past medical history with multiple comorbidities but the most significant of which is that she has cognitive Windy, long-term tobacco abuse, chronic COPD with asthma on chronic 2 L by nasal cannula, CHF, epilepsy, cor pulmonale. Family members provide most of the history due to the patient's cognitive disability. Reportedly she started complaining of chest pain around 3:00's afternoon however it went away and she is been fine until about an hour ago when it returned. They deny any fever chills hemoptysis hematochezia melena nausea vomit diarrhea. Related Data Home Medications ?Medication ?Instructions ?Recorded ?Confirmed trazodone 100 mg tablet 100 mg PO HS 01/18/24 06/02/24 albuterol sulfate 90 mcg/actuation 1 inh inhalation Q4HP PRN 03/31/24 06/02/24 aerosol inhaler (Ventolin HFA) Shortness Of Breath ipratropium 0.5 mg-albuterol 3 mg 3 ml inhalation QIDP PRN shortness 03/31/24 06/02/24 (2.5 mg base)/3 mL nebulization of breath or wheezing soln omeprazole 20 mg capsule,delayed 20 mg PO DAILY 03/31/24 06/02/24 release Previous Rx's ?Medication ?Instructions ?Recorded divalproex 500 mg tablet,delayed 500 mg PO TID #90 tabs 01/24/24 release clonazepam 1 mg tablet 0.5 mg (1/2 x 1 mg) PO BIDP PRN 02/14/24 Anxiety #30 tabs bupropion HCl 300 mg 24 hr tablet, 300 mg PO DAILY #90 tabs 02/23/24 extended release empagliflozin 10 mg tablet 10 mg PO DAILY 90 days #90 tabs 02/23/24 (Jardiance) dextromethorphan 20 mg-quinidine 1 cap PO BID #60 caps 03/20/24 10 mg capsule (Nuedexta) irbesartan 75 mg tablet 75 mg PO DAILY 30 days #30 tabs 03/20/24 spironolactone 25 mg tablet 25 mg PO DAILY 30 days #30 tabs 03/20/24 escitalopram oxalate 10 mg tablet 10 mg PO DAILY #90 tabs 03/30/24 (Lexapro) carvedilol 3.125 mg tablet 3.125 mg PO BID 30 days #60 tabs 04/01/24 furosemide 40 mg tablet 40 mg PO BIDL 30 days #60 tabs 04/01/24 ipratropium 0.5 mg-albuterol 3 mg 3 ml inhalation QID PRN shortness 04/10/24 (2.5 mg base)/3 mL nebulization of breath or wheezing 90 days #270 soln mL rimegepant 75 mg disintegrating 75 mg PO ONCE PRN migraine 04/26/24 tablet (Nurtec ODT) headache #10 tabs gabapentin 300 mg capsule 300 mg PO TID #90 caps 05/18/24 Allergies Allergy/AdvReac Type Severity Reaction Status Date / Time nicotine AdvReac Rash Verified 05/28/24 10:44 [facility] Disclaimer: The information contained in this section may have been updated after the patient was seen, as this information can be updated by other users. Medical History (Updated 05/28/24 @ 11:32 by Radha Du APRN) Diminished pulses in lower extremity Leg numbness Chronic asthmatic bronchitis Closed nondisplaced fracture of fifth metatarsal bone of left foot with routine healing Avulsion fracture Respiratory failure with hypercapnia Right lower lobe pneumonia Encounter for general medical examination Lower GI bleeding Abnormal laboratory test result Asthma exacerbation in COPD Acute chest wall pain Pneumonia UTI (urinary tract infection) Recurrent pneumonia Acute viral syndrome Abnormal electrocardiogram [ECG] [EKG] Cough Diarrhea REYMUNDO (obstructive sleep apnea) (HFpEF) heart failure with preserved ejection fraction Oxygen dependent Neuropathy Smoking greater than 30 pack years Mediastinal lymphadenopathy Pulmonary embolism Dyspnea on exertion Acute diastolic CHF (congestive heart failure) Pulmonary hypertension Hilar lymphadenopathy Pleural effusion on right Pneumonia Anxiety disorder Seizure disorder Mood disorder Incontinence History of COVID-19 Asthma History of gastroesophageal reflux (GERD) Allergies Depression Anxiety Urinary tract infection Migraine COPD (chronic obstructive pulmonary disease) Hyperlipidemia Hypertension Surgical History History of colonoscopy History of breast biopsy History of hysterectomy History of cholecystectomy Family History Father Lung cancer Sister Ovarian cancer Kidney disease Lung cancer Mother Kidney disease Other Family history of diabetes mellitus type II Family history of hyperlipidemia Family history of hypertension Family history of migraine headaches Family history of myocardial infarction Social History Smoking Status: Current every day smoker tobacco type: cigarettes packs per day: 1 alcohol intake: never counseling provided: none substance use type: denies use current occupational status: disabled Travel in the last 8 weeks: None caregiver/support person: Yes household members: caregiver housing: assisted living facility lives independently: No do you feel safe at home: Yes victim of physical abuse: No victim of emotional abuse: No victim of sexual abuse: No would you like helpful sources: No Other Medical History Have you received the Flu Vaccine for this season: No Have you received the Pneumonia Vaccine: No ROS Obtained: Yes Systems reviewed as appropriate & no additional complaints except as documented Physical Exam General General appearance: alert and in no apparent distress Respiratory Respiratory exam: Present normal lung sounds bilaterally Cardiovascular Cardiovascular exam: Present regular rate Neurological Exam Neurological exam: Present alert; Absent oriented X3 HEART Score HEART Score HEART Score assessment performed?: No Critical Care Critical Care Time Critical Care Time: No Medical Decision Making Medical Records Medical records reviewed: Yes I reviewed the patient's medical records. Vlad Inquiry Pt receiving controlled substance: No Lab Data Lab results reviewed: Yes I reviewed the patient's lab results. Response Orders (Tests/Meds): ORDERS Category Date Time Status XR chest portable Stat Exams 06/02/24 22:04 Ordered BNP [NT Pro Brain Natriuretic Pep.] Stat Lab 06/02/24 22:04 Ordered Complete Blood Count Auto Diff Stat Lab 06/02/24 22:04 Ordered Comprehensive Metabolic Panel Stat Lab 06/02/24 22:04 Ordered D-Dimer Stat Lab 06/02/24 22:09 Ordered Magnesium Stat Lab 06/02/24 22:04 Ordered Rapid PCR Covid and Flu A/B Stat Lab 06/02/24 22:09 Ordered Troponin I Q3H Lab 06/03/24 01:15 Ordered Troponin I Q3H Lab 06/03/24 04:15 Ordered Troponin I Stat Lab 06/02/24 22:04 Ordered MDM Narrative Medical Decision Narrative: In summary patient is a 53-year-old female who presents to the emergency department for evaluation of chest pain. Patient is hemodynamically stable satting at 94% on her baseline 2 L by nasal cannula upon arrival, afebrile. Zickel exam is remarkable for nonreproducible reported chest pain on palpation. Breath sounds however have significant diminished air entry and early end expiratory wheezing diminished breath sounds at the bases the remainder of her exam is difficult to ascertain but patient does point to the center of her chest when she asked where she is hurting currently.. Differential diagnosis includes COPD exacerbation versus ACS versus PE etc. Initial workup will be conducted with hematologic labs twelve-lead EKG plain film chest x-ray COVID flu swabs. Initial interventions include Tylenol Toradol DuoNeb Solu-Medrol. Initial workup initiated and pending at the time of handoff to Dr. Chung at 2300 hrs.
--- NOTE | 2024-06-02 22:04 | XR_ITS ---
PROCEDURE INFORMATION: Exam: XR Chest Exam date and time: 06/02/2024 10:17 PM Age: 53 years old Clinical indication: Pain; Cough and shortness of breath; Left-sided; Additional info: SOA, cough, chf, chest pain TECHNIQUE: Imaging protocol: Radiologic exam of the chest. Views: 1 view. COMPARISON: 1. CR XR CHEST PORTABLE 05/24/2024 7:27 PM 2. CR XR CHEST PORTABLE 03/30/2024 7:[address] CHEST WO CON 01/17/2024 7:43 PM 4. CR XR CHEST PORTABLE 01/17/2024 6:06 PM FINDINGS: Lungs: Bibasilar chronic pleural-parenchymal scarring changes with chronic pleural reaction and associated opacification compatible with rounded atelectasis redemonstrated. Lungs are otherwise clear. Pleural spaces: See Lungs finding. Heart/Mediastinum: Cardiomegaly redemonstrated. Bones/joints: Unremarkable. IMPRESSION: Stable chest x-ray with no acute disease.
[2024-06-02 22:22] LABS: Basophils # 0.1 K/mm3 (0-0.2); Basophils % 0.9 % (0.1-2.0); Eosinophils # 0.2 K/mm3 (0.0-0.4); Hematocrit 37.9 % (37.0-47.0); Hemoglobin 12.9 g/dL (12.2-16.2); Lymphocytes # 2.3 K/mm3 (0.7-4.5); Lymphocytes % 25.1 % (10-50); Mean Corpuscular Hemoglobin 28.3 pg (27.0-31.2); Mean Corpuscular Volume 83.4 fl (81-99); Mean Platelet Volume 9.3 fl (7.4-10.4); Monocytes # 0.7 K/mm3 (0.1-1.0); Monocytes % 7.8 % (1.7-9.3); Neutrophils # 5.9 K/mm3 (1.8-7.8); Neutrophils % 64.3 % (37.0-80.0); Platelet Count 311 K/mm3 (142-424); Red Blood Count 4.55 M/mm3 (4.20-5.40); Red Cell Distribution Width 16.1 % (11.5-17.5); White Blood Count 9.1 K/mm3 (4.8-10.8)
[2024-06-02 22:26] LABS: Coronavirus 19, PCR Not Detected (NotDetected); Influenza A, PCR Not Detected (NotDetected); Influenza B, PCR Not Detected (NotDetected)
[2024-06-02] MEDS: BELLADONNA ALKALOIDS 60 ML ML PO (22:26)
[2024-06-02] MEDS: METHYLPREDNISOLONE SOD SUCC 125MG VIAL 125 MG IV (22:26)
[2024-06-02] MEDS: KETOROLAC 30MG/ML VIAL 15 MG IV (22:26)
[2024-06-02] MEDS: ACETAMINOPHEN 500MG TAB 1000 MG PO (22:26)
[2024-06-02 22:27] LABS: Alanine Aminotransferase 10 U/L (12-78); Albumin Level 3.4 g/dl (3.5-5.0); Albumin/Globulin Ratio 0.9 (1.1-1.8); Alkaline Phosphatase 82 U/L (38-126); Aspartate Amino Transferase 19 U/L (14-36); Bilirubin,Total 0.5 mg/dl (0.2-1.3); Blood Urea Nitrogen 23 mg/dl (7-17); Calcium 7.9 mg/dl (8.4-10.2); Chloride 95 mmol/L (98-107); Creatinine Clearance Estimated 129 mL/min (50-200); Estimated Glomerular Filt Rate 105 ml/min (>60); GFR (African American) 127 ML/MIN (>60); Globulin 3.7 g/dL (1.3-3.2); Glucose 84 mg/dl (74-100); Sodium 138 mmol/L (136-145); Total Protein,Serum 7.1 g/dl (6.3-8.2)
[2024-06-02] MEDS: IPRATROPIUM/ALBUTEROL 3 ML NEB 9 ML IH (22:27)
[2024-06-02 22:30] VITALS: BP 104/60; PULSE 80; RESP 18; O2SAT 98
[2024-06-02 22:31] LABS: D-Dimer 0.45 ug/mL (0.0-0.5)
[2024-06-02 22:34] LABS: Carbon Dioxide 35 mmol/L (22.0-30.0)
[2024-06-02 22:40] LABS: NT Pro Brain Natriuretic Pep. 1040 pg/mL (0-125); Troponin I < 0.01 ng/ml (0.00-0.034)
[2024-06-02 23:00] VITALS: BP 109/58; PULSE 81; RESP 15; O2SAT 98
[2024-06-02 23:30] VITALS: BP 115/62; PULSE 80; RESP 18; O2SAT 91
--- NOTE | 2024-06-02 23:57 | ECG_ITS ---
APPROVED REPORT Exam: Resting ECG HR:78 bpm ECG Measurements Heart Rate 78 AXES GA 135 P 75 QRSd 103 QRS 109 QT 395 T 82 QTc 428 Conclusion SINUS RHYTHM POSSIBLE RIGHT VENTRICULAR HYPERTROPHY [SOME/ALL OF: PROMINENT R IN V1, LATE TRANSITION, RAD, JACKIE, SSS] No stemi Electronically signed by : RORY DC, 06/03/2024 06:43:38
[2024-06-03] VITALS (10 sets, daily range): BP systolic 104–124; BP diastolic 53–68; PULSE 70–90; RESP 16–22; TEMP 36.4–36.9; O2SAT 94–97; BMI 28.9
--- NOTE | 2024-06-03 | PC.NURSE ---
Dr. Chung s/w Dr. Bauer for admission d/t unstable angina
--- NOTE | 2024-06-03 00:05 | PC.NURSE ---
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
[2024-06-03] MEDS: ASPIRIN 81MG CHEWABLE TABLET 324 MG PO (00:13)
--- NOTE | 2024-06-03 00:18 | PC.NURSE ---
Gave report to [place] BRAVO on Med Surg
--- NOTE | 2024-06-03 00:53 | P.HP_ITS ---
History of Present Illness *Admission Date: 06/03/24 *Reason for visit:: Chest pain *History of present illness: Patient is a 53-year-old female who presents to the hospital due to chest pain, patient has past medical history of COPD GERD obstructive sleep apnea, heart failure with preserved ejection fraction, neuropathy, anxiety disorder, seizure disorder. Reportedly patient has been having chest pains intermittently, no other associated nausea vomiting diarrhea constipation dysuria fevers chills shortness of breath. Patient was admitted for chest pain and cardiology evaluation. [facility] Disclaimer: The information contained in this section may have been updated after the patient was seen, as this information can be updated by other users. Medical History Diminished pulses in lower extremity Leg numbness Chronic asthmatic bronchitis Closed nondisplaced fracture of fifth metatarsal bone of left foot with routine healing Avulsion fracture Respiratory failure with hypercapnia Right lower lobe pneumonia Encounter for general medical examination Lower GI bleeding Abnormal laboratory test result Asthma exacerbation in COPD Acute chest wall pain Pneumonia UTI (urinary tract infection) Recurrent pneumonia Acute viral syndrome Abnormal electrocardiogram [ECG] [EKG] Cough Diarrhea REYMUNDO (obstructive sleep apnea) (HFpEF) heart failure with preserved ejection fraction Oxygen dependent Neuropathy Smoking greater than 30 pack years Mediastinal lymphadenopathy Pulmonary embolism Dyspnea on exertion Acute diastolic CHF (congestive heart failure) Pulmonary hypertension Hilar lymphadenopathy Pleural effusion on right Pneumonia Anxiety disorder Seizure disorder Mood disorder Incontinence History of COVID-19 Asthma History of gastroesophageal reflux (GERD) Allergies Depression Anxiety Urinary tract infection Migraine COPD (chronic obstructive pulmonary disease) Hyperlipidemia Hypertension Surgical History History of colonoscopy History of breast biopsy History of hysterectomy History of cholecystectomy Family History Father Lung cancer Sister Ovarian cancer Kidney disease Lung cancer Mother Kidney disease Other Family history of diabetes mellitus type II Family history of hyperlipidemia Family history of hypertension Family history of migraine headaches Family history of myocardial infarction Social History Smoking Status: Current every day smoker tobacco type: cigarettes packs per day: 1 alcohol intake: never counseling provided: none substance use type: denies use current occupational status: disabled Travel in the last 8 weeks: None caregiver/support person: Yes household members: caregiver housing: assisted living facility lives independently: No do you feel safe at home: Yes victim of physical abuse: No victim of emotional abuse: No victim of sexual abuse: No would you like helpful sources: No Other Medical History Have you received the Flu Vaccine for this season: No Have you received the Pneumonia Vaccine: No Review of Systems Review of Systems Review of systems:: pertinent systems reviewed and negative unless documented below Meds Home Medications and Allergies Home Medications ?Medication ?Instructions ?Recorded ?Confirmed ?Type trazodone 100 mg tablet 100 mg PO HS 01/18/24 06/02/24 History divalproex 500 mg tablet,delayed 500 mg PO TID #90 tabs 01/24/24 06/02/24 Rx release clonazepam 1 mg tablet 0.5 mg (1/2 x 1 mg) PO BIDP PRN 02/14/24 06/02/24 Rx Anxiety #30 tabs bupropion HCl 300 mg 24 hr tablet, 300 mg PO DAILY #90 tabs 02/23/24 06/02/24 Rx extended release empagliflozin 10 mg tablet 10 mg PO DAILY 90 days #90 tabs 02/23/24 06/02/24 Rx (Jardiance) dextromethorphan 20 mg-quinidine 1 cap PO BID #60 caps 03/20/24 06/02/24 Rx 10 mg capsule (Nuedexta) irbesartan 75 mg tablet 75 mg PO DAILY 30 days #30 tabs 03/20/24 06/02/24 Rx spironolactone 25 mg tablet 25 mg PO DAILY 30 days #30 tabs 03/20/24 06/02/24 Rx escitalopram oxalate 10 mg tablet 10 mg PO DAILY #90 tabs 03/30/24 06/02/24 Rx (Lexapro) albuterol sulfate 90 mcg/actuation 1 inh inhalation Q4HP PRN 03/31/24 06/02/24 History aerosol inhaler (Ventolin HFA) Shortness Of Breath ipratropium 0.5 mg-albuterol 3 mg 3 ml inhalation QIDP PRN shortness 03/31/24 06/02/24 History (2.5 mg base)/3 mL nebulization of breath or wheezing soln omeprazole 20 mg capsule,delayed 20 mg PO DAILY 03/31/24 06/02/24 History release carvedilol 3.125 mg tablet 3.125 mg PO BID 30 days #60 tabs 04/01/24 06/02/24 Rx furosemide 40 mg tablet 40 mg PO BIDL 30 days #60 tabs 04/01/24 06/02/24 Rx ipratropium 0.5 mg-albuterol 3 mg 3 ml inhalation QID PRN shortness 04/10/24 06/02/24 Rx (2.5 mg base)/3 mL nebulization of breath or wheezing 90 days #270 soln mL rimegepant 75 mg disintegrating 75 mg PO ONCE PRN migraine 04/26/24 06/02/24 Rx tablet (Nurtec ODT) headache #10 tabs gabapentin 300 mg capsule 300 mg PO TID #90 caps 05/18/24 06/02/24 Rx New Prescriptions to Start Prescriptions: Allergies Allergy/AdvReac Type Severity Reaction Status Date / Time nicotine AdvReac Rash Verified 05/28/24 10:44 Exam Data for Last 24 hours Vital signs and Labs for Last 24 Hours: Temp Pulse Resp BP Pulse Ox O2 Del Method O2 Flow Rate 98.5 F 83 22 112/54 L 91 L Nasal Cannula 2 06/03/24 00:23 06/03/24 00:23 06/03/24 00:23 06/03/24 00:23 06/02/24 23:30 06/03/24 00:23 06/03/24 00:23 Laboratory Results - last 24 hr 06/02/24 22:07: WBC 9.1, RBC 4.55, Hgb 12.9, Hct 37.9, MCV 83.4, MCH 28.3, MCHC 34.0, RDW 16.1, Plt Count 311, MPV 9.3, Neut % (Auto) 64.3, Lymph % (Auto) 25.1, Barren % (Auto) 7.8, Eos % (Auto) 2.0, Baso % (Auto) 0.9, Neut # (Auto) 5.9, Lymph # (Auto) 2.3, Barren # (Auto) 0.7, Eos # (Auto) 0.2, Baso # (Auto) 0.1, D- Dimer 0.45, Sodium 138, Potassium 4.0, Chloride 95 L, Carbon Dioxide 35 H, Anion Gap 7.0, BUN 23 H, Creatinine 0.60, Estimated Creat Clear 129, Estimated GFR 105, Est GFR ( Amer) 127, Glucose 84, Calcium 7.9 L, Magnesium 2.0, Total Bilirubin 0.5, AST 19, ALT 10 L, Alkaline Phosphatase 82, Troponin I < 0.01, NT-Pro-B Natriuret Pep 1040 H, Total Protein 7.1, Albumin 3.4 L, Globulin 3.7 H, Albumin/Globulin Ratio 0.9 L 06/02/24 22:20: SARS-CoV-2 (PCR) Not detected, Influenza A Untype (PCR) Not detected, Influenza Type B (PCR) Not detected I & O for Last 24 hours: Intake & Output 05/31/24 06/01/24 06/02/24 06/03/24 23:59 23:59 23:59 22:59 Weight 75.296 kg Constitutional Constitutional: no acute distress *Routine HEENT Exam Head: Present normocephalic Eye: Present EOMI and PERRL ENT: Present mucous membranes moist *Routine Neck Exam Neck: Present supple; Absent lymphadenopathy *Routine Respiratory Exam Respiratory: Present CTA bilaterally *Routine Cardiovascular Exam Cardiovascular: Present RRR *Routine Abdominal Exam Abdominal: Present soft and normoactive bowel sounds; Absent tenderness *Routine Rectal Exam Rectal:: deferred *Routine Genitalia Exam Genitalia:: deferred *Routine Extremities Exam Extremities: Absent cyanosis, clubbing or edema *Routine Skin Exam Skin: Present warm; Absent rash *Routine Neurological Exam Neurological: Present alert and oriented X3 Assessment and Plan *Assessment and plan (1) Unstable angina: Status: Acute Category: Medical Code(s): I20.0 - Unstable angina (2) Cognitive impairment: Status: Acute Category: Medical Code(s): R41.89 - Other symptoms and signs involving cognitive functions and awareness (3) COPD (chronic obstructive pulmonary disease): Status: Acute Qualifiers: COPD type: COPD with acute exacerbation Qualified Code(s): J44.1 - Chronic obstructive pulmonary disease with (acute) exacerbation Category: Medical Code(s): J44.9 - Chronic obstructive pulmonary disease, unspecified (4) Mood disorder: Status: Acute Category: Medical Code(s): F39 - Unspecified mood [affective] disorder Plan Patient is a 53-year-old female who presents to the hospital due to chest pain, patient has past medical history of COPD GERD obstructive sleep apnea, heart failure with preserved ejection fraction, neuropathy, anxiety disorder, seizure disorder. Reportedly patient has been having chest pains intermittently, no other associated nausea vomiting diarrhea constipation dysuria fevers chills shortness of breath. Patient was admitted for chest pain and cardiology evaluation. 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
[2024-06-03] MEDS: HEPARIN SODIUM 5,000 UNIT/ML VIAL 5000 UNIT SUBCUT ×2 (01:07→08:24)
[2024-06-03] MEDS: MORPHINE 2MG/ML SYRINGE 2 MG IV (01:08)
--- NOTE | 2024-06-03 01:34 | PC.WOUNDNOTE ---
area to right upper thigh
[2024-06-03 01:52] LABS: Troponin I < 0.01 ng/ml (0.00-0.034)
[2024-06-03] MEDS: clonazePAM 1MG TABLET 0.5 MG PO (02:39)
[2024-06-03 03:48] LABS: Troponin I < 0.01 ng/ml (0.00-0.034)
[2024-06-03] MEDS: ACETAMINOPHEN 325MG TAB 650 MG PO ×2 (05:33→15:02)
[2024-06-03 06:54] LABS: Basophils % 0.2 % (0.1-2.0); Hematocrit 38.6 % (37.0-47.0); Hemoglobin 11.9 g/dL (12.2-16.2); Lymphocytes # 0.7 K/mm3 (0.7-4.5); Lymphocytes % 10.7 % (10-50); Mean Corpuscular HGB Conc 30.9 g/dL (31.8-35.4); Mean Corpuscular Hemoglobin 26.1 pg (27.0-31.2); Mean Corpuscular Volume 84.4 fl (81-99); Mean Platelet Volume 7.9 fl (7.4-10.4); Monocytes # 0.2 K/mm3 (0.1-1.0); Monocytes % 3.7 % (1.7-9.3); Neutrophils # 5.2 K/mm3 (1.8-7.8); Neutrophils % 85.3 % (37.0-80.0); Platelet Count 285 K/mm3 (142-424); Red Blood Count 4.57 M/mm3 (4.20-5.40); Red Cell Distribution Width 15.9 % (11.5-17.5); White Blood Count 6.1 K/mm3 (4.8-10.8)
[2024-06-03 07:01] LABS: MANUAL DIFFERENTIAL MANUAL DIFFERENTIAL (MANUAL DIFF)
[2024-06-03 07:03] LABS: Anion Gap 7.5 mEq/L (5-15); Blood Urea Nitrogen 24 mg/dl (7-17); Carbon Dioxide 38 mmol/L (22.0-30.0); Chloride 99 mmol/L (98-107); Creatinine Clearance Estimated 105 mL/min (50-200); Estimated Glomerular Filt Rate 88 ml/min (>60); GFR (African American) 106 ML/MIN (>60); Glucose 160 mg/dl (74-100); Potassium 4.5 mmoL/L (3.5-5.1); Sodium 140 mmol/L (136-145)
[2024-06-03 07:36] LABS: Lymphocytes % 11 % (10-50); Monocytes % 1 % (2-9); Neutrophils % 88 % (42-76); Platelet Estimate Normal; RBC Morphology Normal; Total Cells Counted 100
[2024-06-03] MEDS: FUROSEMIDE 40 MG TABLET PO ×2 (08:22→15:02)
[2024-06-03] MEDS: SPIRONOLACTONE 25MG TABLET 25 MG PO (08:22)
[2024-06-03] MEDS: ASPIRIN 81MG CHEWABLE TABLET 81 MG PO (08:22)
[2024-06-03] MEDS: EMPAGLIFLOZIN 10MG TABLET 10 MG PO (08:22)
[2024-06-03] MEDS: buPROPion HCl SR 150MG TAB 150 MG PO ×2 (08:23→20:19)
[2024-06-03] MEDS: CITALOPRAM 20MG TABLET 20 MG PO (08:23)
[2024-06-03] MEDS: IRBESARTAN 75MG TABLET 75 MG PO (08:23)
[2024-06-03] MEDS: CLOPIDOGREL 75MG TAB 75 MG PO (08:23)
[2024-06-03] MEDS: GABAPENTIN 300MG CAPSULE 300 MG PO ×3 (08:23→20:19)
[2024-06-03] MEDS: DIVALPROEX 500MG (Delayed-Release) TABLET 500 MG PO ×3 (08:23→20:18)
[2024-06-03] MEDS: CARVEDILOL 3.125MG TABLET 3.125 MG PO ×2 (08:26→20:18)
--- NOTE | 2024-06-03 08:54 | HMH.PHAINT1 ---
Pharmacy Intervention Comments: MEDICATION RECONCILIATION COMPLETED ON PATIENT USING EXTERNAL FILL HISTORY FROM PHARMACY AND DISCHARGE SUMMARY FROM PREVIOUS ADMISSION. -EMANUEL YU, EDISOND
[2024-06-03 09:38] LABS: Troponin I < 0.01 ng/ml (0.00-0.034)
[2024-06-03] MEDS: IPRATROPIUM/ALBUTEROL 3 ML NEB IH (10:41)
--- NOTE | 2024-06-03 12:52 | P.PN_ITS ---
Subjective *Date: 06/03/24 *Time: 12:52 Interval history: States she continues to have intermittent chest pains, but endorses tenderness wherever palpated on her body. Pending ECHO and cardiology evaluation tomorrow. Exam Data for Last 24 hours Vital signs and Labs for Last 24 Hours: Temp Pulse Resp BP Pulse Ox O2 Del Method O2 Flow Rate 97.8 F 73 16 112/53 L 97 Nasal Cannula 2 06/03/24 12:00 06/03/24 12:00 06/03/24 12:00 06/03/24 12:00 06/03/24 12:00 06/03/24 12:35 06/03/24 12:35 Laboratory Results - last 24 hr 06/02/24 22:07: WBC 9.1, RBC 4.55, Hgb 12.9, Hct 37.9, MCV 83.4, MCH 28.3, MCHC 34.0, RDW 16.1, Plt Count 311, MPV 9.3, Neut % (Auto) 64.3, Lymph % (Auto) 25.1, [place] % (Auto) 7.8, Eos % (Auto) 2.0, Baso % (Auto) 0.9, Neut # (Auto) 5.9, Lymph # (Auto) 2.3, [place] # (Auto) 0.7, Eos # (Auto) 0.2, Baso # (Auto) 0.1, D-Dimer 0.45, Sodium 138, Potassium 4.0, Chloride 95 L, Carbon Dioxide 35 H, Anion Gap 7.0, BUN 23 H, Creatinine 0.60, Estimated Creat Clear 129, Estimated GFR 105, Est GFR ( Amer) 127, Glucose 84, Calcium 7.9 L, Magnesium 2.0, Total Bilirubin 0.5, AST 19, ALT 10 L, Alkaline Phosphatase 82, Troponin I < 0.01, NT-Pro-B Natriuret Pep 1040 H, Total Protein 7.1, Albumin 3.4 L, Globulin 3.7 H, Albumin/Globulin Ratio 0.9 L 06/02/24 22:20: SARS-CoV-2 (PCR) Not detected, Influenza A Untype (PCR) Not detected, Influenza Type B (PCR) Not detected 06/03/24 01:15 EST: Troponin I < 0.01 06/03/24 03:20: Troponin I < 0.01 06/03/24 05:48: WBC 6.1 D, RBC 4.57, Hgb 11.9 L, Hct 38.6, MCV 84.4, MCH 26.1 L , MCHC 30.9 L, RDW 15.9, Plt Count 285, MPV 7.9, Neut % (Auto) 85.3 H, Lymph % (Auto) 10.7, [place] % (Auto) 3.7, Eos % (Auto) 0.0 L, Baso % (Auto) 0.2, Neut # (Auto) 5.2, Lymph # (Auto) 0.7, [place] # (Auto) 0.2, Eos # (Auto) 0.0, Baso # (Auto) 0.0, Total Counted 100, Neutrophils % (Manual) 88 H, Lymphocytes % (Manual) 11, Monocytes % (Manual) 1 L, Platelet Estimate Normal, RBC Morphology Normal, Sodium 140, Potassium 4.5, Chloride 99, Carbon Dioxide 38 H, Anion Gap 7.5, BUN 24 H, Creatinine 0.70, Estimated Creat Clear 105, Estimated GFR 88, Est GFR ( Amer) 106, Glucose 160 H D, Calcium 8.0 L 06/03/24 09:05: Troponin I < 0.01 I & O for Last 24 hours: Intake & Output 05/31/24 06/01/24 06/02/24 06/03/24 23:59 23:59 23:59 22:59 Intake Total 800 / 800 Output Total 0 / 0 Balance 800 / 800 Weight 75.296 kg 71.395 kg Constitutional Constitutional: no acute distress, average body habitus, chronically ill appearing and cooperative *Routine HEENT Exam Head: Present normocephalic and atraumatic ENT: Present mucous membranes moist *Routine Neck Exam Neck: Present supple, full ROM and normal carotid upstroke; Absent JVD, carotid bruit or lymphadenopathy *Routine Respiratory Exam Respiratory: Present rhonchi, normal respiratory effort and symmetric chest movement; Absent wheezes or crackles *Routine Cardiovascular Exam Cardiovascular: Present RRR, Normal S1 and Normal S2; Absent murmur or gallop *Routine Abdominal Exam Abdominal: Present soft and normoactive bowel sounds; Absent tenderness, distended or organomegaly *Routine Rectal Exam Patient deferred: visual exam *Routine Exam Patient deferred: external exam *Routine Extremities Exam Extremities: Present full ROM, pulses intact and normal capillary refill; Absent cyanosis, clubbing or edema *Routine Skin Exam Skin: Present intact and warm; Absent erythema *Routine Neurological Exam Neurological: Present alert and oriented X3; Absent sensory deficit or motor deficit Comments: Cognitive impairment, child like disposition Routine Psychiatric Exam Psychiatric: Absent normal affect (Flat affect) Assessment and Plan *Assessment and plan (1) Unstable angina: Status: Acute Category: Medical Code(s): I20.0 - Unstable angina (2) Cognitive impairment: Status: Acute Category: Medical Code(s): R41.89 - Other symptoms and signs involving cognitive functions and awareness (3) COPD (chronic obstructive pulmonary disease): Status: Acute Qualifiers: COPD type: COPD with acute exacerbation Qualified Code(s): J44.1 - Chronic obstructive pulmonary disease with (acute) exacerbation Category: Medical Code(s): J44.9 - Chronic obstructive pulmonary disease, unspecified (4) Mood disorder: Status: Acute Category: Medical Code(s): F39 - Unspecified mood [affective] disorder Plan Patient is a 53-year-old female who presents to the hospital due to chest pain, patient has past medical history of COPD GERD obstructive sleep apnea, pulmonary hypertension, hypertension, heart failure with preserved ejection fraction, neuropathy, anxiety disorder, seizure disorder, cognitive impairment. Reportedly patient has been having chest pains intermittently, no other associated nausea vomiting diarrhea constipation dysuria fevers chills shortness of breath. Patient was admitted for chest pain and cardiology evaluation. Assessment and plan Chest pain, rule out ACS ? Has a history of HFpEF, hypertension, pulmonary hypertension, severe REYMUNDO. ? Seen by cardiology last week, and recommended considering C if patient continues to be symptomatic. ? Negative troponins, EKG did not show acute ischemic findings. ? Patient states she continues to have intermittent chest pain, but is also endorsing pain throughout her body wherever palpated. Patient has baseline cognitive impairment. ? Aspirin, Plavix, statin. Continue home Coreg. ? Follow-up ECHO. ? Cardiology consulted, pending recommendations ? Continue cardiac telemetry. #HFpEF ? Currently euvolemic. ? Continue Lasix 40 mg twice daily, Farxiga 10 mg, spironolactone 25 mg. #Hypertension ? Continue irbesartan 75 mg. COPD on 2 L nasal cannula Continue DuoNebs Chest x-ray reviewed-no consolidation seen Chronic medical conditions GERD-continue PPI History of neuropathy Anxiety-continue home Klonopin, Neurontin DVT prophylaxis-Lovenox
--- NOTE | 2024-06-03 16:57 | PC.NURSE ---
no changes since previous assessment. requiring 2lnc for o2 support. has sat up to chair this shift and tolerated well.
[2024-06-03] MEDS: PANTOPRAZOLE 40MG TABLET 40 MG PO (20:18)
[2024-06-03] MEDS: ATORVASTATIN 40MG TABLET 40 MG PO (20:19)
[2024-06-03] MEDS: TRAZODONE 50MG TABLET 100 MG PO (20:19)
[2024-06-03] MEDS: clonazePAM 0.5MG TABLET 0.5 MG PO (20:19)
[2024-06-04] VITALS (17 sets, daily range): BP systolic 93–120; BP diastolic 48–69; PULSE 65–80; RESP 14–20; TEMP 36.6–36.7; O2SAT 95–99; BMI 29.0
--- NOTE | 2024-06-04 | IR_ITS ---
APPROVED REPORT Patient Location: Inpatient Field Agronomist: Jared Mari, RT (R) PROCEDURES Right heart catheterization Left heart catheterization Left ventriculogram Selective coronary angiogram INDICATION Unstable angina, Pulmonary hypertension Informed consent was obtained prior to the procedure. COMPLICATIONS None Estimated Blood Loss: Less than 10 mls TECHNIQUE One percent lidocaine was used to anesthetize the right anterior aspect of the right wrist. The right radial artery was accessed via the Seldinger technique and a 6 [place] hydrophilic sheath was placed in the right radial artery. Following this one percent lidocaine was used to anesthetize the right anterior aspect of the right neck. The right internal jugular vein was accessed via the Seldinger technique and a 7 [place] sheath was placed in the right internal jugular vein. Following this an arterial cocktail was administered using 5000U heparin, 2.5 mg verapamil, 1mg Lidocaine and 800mcg nitroglycerin into the right radial sheath. A 6 [place] JL 3 guide catheter was used to perform left heart catheterization left ventriculogram and selective coronary angiography while a [place] catheter was used to perform right heart catheterization. Saturations were obtained in the pulmonary artery and right atrium. At the end of the procedure the arterial sheath was removed good hemostasis was achieved using Traclet band. Patient was transferred to the postop holding area in stable condition for venous sheath removal. ANGIOGRAPHIC RESULTS The left main artery Normal The left anterior descending artery Is proximally normal. A medium sized first diagonal artery as an ostial concentric 50% stenosis The circumflex artery Codominant normal The right coronary artery Codominant normal The PÉREZ ventriculogram reveals Normal 65% The left ventricular end-diastolic pressure LVEDP is 18 mmHg Right atrial pressure 15 mmHg Right ventricular pressure 75/15 mmHg Pulmonary artery pressure 78/30 mmHg Pulm artery occlusion pressure 17 mmHg Right atrial and pulmonary artery saturation both 83% Aortic saturation 99% Hemoglobin 11.7 Cardiac output 8.7 L/min Cardiac index 5 IMPRESSION Normal coronary arteries in the main 3 vessels with moderate stenosis in the proximal portion of a medium sized first diagonal artery Normal ejection fraction Mildly elevated LVEDP Severe pulmonary hypertension No evidence of intracardial pulmonary shunt PLAN 1. Medical management for coronary artery disease 2. Further workup for pulmonary etiologies of pulmonary hypertension 3. Referral to pulmonary hypertension clinic 4. Consider diuretics due to elevated LVEDP as well as treatment of hypertension. Consider vasodilator therapy Electronically signed by : Alvarez Bailey MD 06/04/2024 13:00:07
[2024-06-04 07:00] LABS: Basophils # 0.1 K/mm3 (0-0.2); Basophils % 0.8 % (0.1-2.0); Eosinophils # 0.1 K/mm3 (0.0-0.4); Eosinophils % 1.2 % (0.1-12.0); Hematocrit 37.8 % (37.0-47.0); Hemoglobin 11.7 g/dL (12.2-16.2); Lymphocytes # 3.6 K/mm3 (0.7-4.5); Lymphocytes % 47.6 % (10-50); Mean Corpuscular HGB Conc 30.8 g/dL (31.8-35.4); Mean Corpuscular Hemoglobin 25.9 pg (27.0-31.2); Mean Corpuscular Volume 83.9 fl (81-99); Mean Platelet Volume 7.7 fl (7.4-10.4); Monocytes # 0.5 K/mm3 (0.1-1.0); Neutrophils # 3.3 K/mm3 (1.8-7.8); Neutrophils % 43.5 % (37.0-80.0); Platelet Count 308 K/mm3 (142-424); Red Blood Count 4.51 M/mm3 (4.20-5.40); Red Cell Distribution Width 15.8 % (11.5-17.5); White Blood Count 7.5 K/mm3 (4.8-10.8)
[2024-06-04 07:05] LABS: Blood Urea Nitrogen 31 mg/dl (7-17); Calcium 7.8 mg/dl (8.4-10.2); Chloride 97 mmol/L (98-107); Creatinine Clearance Estimated 123 mL/min (50-200); Estimated Glomerular Filt Rate 105 ml/min (>60); GFR (African American) 127 ML/MIN (>60); Glucose 79 mg/dl (74-100); Sodium 139 mmol/L (136-145)
[2024-06-04 07:12] LABS: Carbon Dioxide 34 mmol/L (22.0-30.0)
--- NOTE | 2024-06-04 07:45 | CA_ITS ---
APPROVED REPORT EXAM: Comprehensive 2D, Doppler, and color-flow Echocardiogram Furnace Unloader: Dianna Aquino RDCS Ht: 5 ft 2 in Wt: 157lbs BSA: 1.72 BP: 112/54 mmHg Indications: ANGINA H/O CHF SMOKER PAD COPD HTN HLP M-Mode Dimensions RVDd 2.28 cm (0.9-2.6) LA Diam 4.42 cm (1.9-4.0) LVDd 5.28 cm (3.5-5.7) LVDs 3.50 cm (3.5-5.7) IVSd 0.84 cm (0.6-1.1) PWd 1.03 cm (0.6-1.1) EF (Teich) 62.10% FS 33.70% EDV (Teich) 134.20 mL TAPSE 2.32 (<1.7) ESV (Teich) 50.90 mL LV Diastology E Decel Time 160 (160-240 msec) E/A Ratio 1.4 Mitral Valve MV E Max Jamaal. 95.0 (40-130 cm/s) MV A Velocity 66.0 (40-130 cm/s) E/A Ratio 1.42 MV PHT 47.0 ms Tricuspid Valve TR P. Velocity 397.00 cm/s RAP Estimate 10.00 mmHg RVSP 73.20 mmHg Left Ventricle The left ventricle is normal size. The left ventricular systolic function is normal. The left ventricular ejection fraction is within the normal range. There is normal left ventricular wall thickness. There is normal LV segmental wall motion. The left ventricular diastolic function is normal. LVEF is 55%. Right Ventricle Right ventricle is moderately dilated. Right ventricle is mildly hypokinetic. Atria The left atrium is moderately dilated. Right atrium is severely dilated. The interatrial septum appears aneurysmal. There is no Doppler evidence of interatrial shunt. Aortic Valve The aortic valve opens well. There is no aortic valvular stenosis. Trace aortic regurgitation. Mitral Valve The mitral valve is normal in structure. No evidence of mitral valve stenosis. Mild mitral regurgitation. Tricuspid Valve The tricuspid valve leaflets are thin and pliable. Mild tricuspid regurgitation. RVSP is 50-55 mmHg. Pulmonic Valve The pulmonary valve is normal in structure. Trace pulmonic regurgitation. Great Vessels The aortic root is normal in size. IVC is normal in size and collapses >50% with inspiration. Pericardium There is no pericardial effusion. Other Information Study Quality: Fair Conclusion Normal LV systolic function. Moderate RV dilation with mild reduction in RV function. Mild MR, mild TR. Elevated RVSP 50-55 mmHg. Electronically signed by : Marian Vines MD 06/04/2024 12:53:27
[2024-06-04] MEDS: GABAPENTIN 300MG CAPSULE 300 MG PO (08:34)
[2024-06-04] MEDS: CITALOPRAM 20MG TABLET 20 MG PO (08:34)
[2024-06-04] MEDS: SPIRONOLACTONE 25MG TABLET 25 MG PO (08:34)
[2024-06-04] MEDS: buPROPion HCl SR 150MG TAB 150 MG PO (08:34)
[2024-06-04] MEDS: CARVEDILOL 3.125MG TABLET 3.125 MG PO (08:34)
[2024-06-04] MEDS: ASPIRIN 81MG CHEWABLE TABLET 81 MG PO (08:34)
[2024-06-04] MEDS: FUROSEMIDE 40 MG TABLET PO ×2 (08:34→17:10)
[2024-06-04] MEDS: EMPAGLIFLOZIN 10MG TABLET 10 MG PO (08:34)
[2024-06-04] MEDS: CLOPIDOGREL 75MG TAB 75 MG PO (08:34)
[2024-06-04] MEDS: IRBESARTAN 75MG TABLET 75 MG PO (08:34)
[2024-06-04] MEDS: DIVALPROEX 500MG (Delayed-Release) TABLET 500 MG PO (08:35)
--- NOTE | 2024-06-04 09:53 | P.CONCA_ITS ---
History of Present Illness History of Present Illness Consult date: 06/04/24 Requesting physician: Ector Persaud Consult reason: chest pain Chief complaint: Chest pain Additional Medical History:: 1. Pulmonary hypertension/COPD/REYMUNDO A. Echocardiogram, 10/13/2023, EF 60%, increased RV wall thickness with normal size and function. Moderate LAE, mild JACKIE. RVSP greater than [address], 01/17/2024, emphysema C. Chest CTA, 06/16/2022 showed evidence of pulmonary artery enlargement suspicious for chronic pulmonary artery hypertension. D. Sleep study, January 2024, severe sleep apnea with AHI of 62 2. Chest pain A. Lexiscan Myoview, 11/01/2023, EF 63% with no ischemia. B. Coronary artery calcifications noted on chest CT, 01/17/2024 along with mitral valve calcifications. 3. Tobacco use 4. Cognitive impairment History of present illness: 53-year-old white female with underlying cognitive impairment, COPD with continued tobacco use, pulmonary hypertension and possible HFpEF presented to the emergency department for complaint of chest pain which has been recurrent over the last several weeks. Patient initially noted chest discomfort with pa lpation of the chest and was treated with anti-inflammatory medication including Toradol and acetaminophen. She was covered for reflux with GI cocktail and did receive treatment for COPD in the ER but despite all of this she had recurrent chest pain and was subsequently admitted for further evaluation. Troponins overnight have returned normal. EKG shows no acute ST segment changes. BNP noted to be elevated at 1040 but chest x-ray was stable with no acute disease noted. Cardiology consulted for evaluation recommendations Patient has been seen in the office recently with adjustment in medications and recommendation for cardiac catheterization if chest pain continued. Patient did have a stress test 7 months ago that showed no evidence of ischemia with normal EF. However, her cognitive disability complicates her care. After discussing her symptoms and risk factors for coronary artery disease with the patient and her sister (her POA) we have decided to proceed with cardiac catheterization. [facility] Disclaimer: The information contained in this section may have been updated after the patient was seen, as this information can be updated by other users. Medical History Diminished pulses in lower extremity Leg numbness Chronic asthmatic bronchitis Closed nondisplaced fracture of fifth metatarsal bone of left foot with routine healing Avulsion fracture Respiratory failure with hypercapnia Right lower lobe pneumonia Encounter for general medical examination Lower GI bleeding Abnormal laboratory test result Asthma exacerbation in COPD Acute chest wall pain Pneumonia UTI (urinary tract infection) Recurrent pneumonia Acute viral syndrome Abnormal electrocardiogram [ECG] [EKG] Cough Diarrhea REYMUNDO (obstructive sleep apnea) (HFpEF) heart failure with preserved ejection fraction Oxygen dependent Neuropathy Smoking greater than 30 pack years Mediastinal lymphadenopathy Pulmonary embolism Dyspnea on exertion Acute diastolic CHF (congestive heart failure) Pulmonary hypertension Hilar lymphadenopathy Pleural effusion on right Pneumonia Anxiety disorder Seizure disorder Mood disorder Incontinence History of COVID-19 Asthma History of gastroesophageal reflux (GERD) Allergies Depression Anxiety Urinary tract infection Migraine COPD (chronic obstructive pulmonary disease) Hyperlipidemia Hypertension Surgical History History of colonoscopy History of breast biopsy History of hysterectomy History of cholecystectomy Family History Father Lung cancer Sister Ovarian cancer Kidney disease Lung cancer Mother Kidney disease Other Family history of diabetes mellitus type II Family history of hyperlipidemia Family history of hypertension Family history of migraine headaches Family history of myocardial infarction Social History Smoking Status: Current every day smoker tobacco type: cigarettes packs per day: 1 alcohol intake: never counseling provided: none substance use type: denies use current occupational status: disabled Travel in the last 8 weeks: None caregiver/support person: Yes household members: caregiver housing: assisted living facility lives independently: No do you feel safe at home: Yes victim of physical abuse: No victim of emotional abuse: No victim of sexual abuse: No would you like helpful sources: No Review of Systems Review of Systems Review of systems:: pertinent systems reviewed and negative unless documented below *Cardiovascular Cardiovascular: Reports chest pain and Reports dyspnea on exertion *Respiratory Respiratory: Reports cough and Reports dyspnea on exertion Exam Data for Last 24 hours Vital signs and Labs for Last 24 Hours: Temp Pulse Resp BP Pulse Ox O2 Del Method O2 Flow Rate 98 F 80 20 109/58 L 96 Room Air 2 06/04/24 07:40 06/04/24 07:40 06/04/24 07:40 06/04/24 07:40 06/04/24 07:40 06/04/24 07:40 06/04/24 06:35 Laboratory Results - last 24 hr 06/04/24 06:08: WBC 7.5, RBC 4.51, Hgb 11.7 L, Hct 37.8, MCV 83.9, MCH 25.9 L, MCHC 30.8 L, RDW 15.8, Plt Count 308, MPV 7.7, Neut % (Auto) 43.5, Lymph % (Auto) 47.6, [place] % (Auto) 7.0, Eos % (Auto) 1.2, Baso % (Auto) 0.8, Neut # (Auto) 3.3, Lymph # (Auto) 3.6, [place] # (Auto) 0.5, Eos # (Auto) 0.1, Baso # (Auto) 0.1, Sodium 139, Potassium 5.0, Chloride 97 L, Carbon Dioxide 34 H, Anion Gap 13.0, BUN 31 H D, Creatinine 0.60, Estimated Creat Clear 123, Estimated GFR 105, Est GFR ( Amer) 127, Glucose 79, Calcium 7.8 L I & O for Last 24 hours: Intake & Output 06/01/24 06/02/24 06/03/24 06/04/24 11:59 11:59 10:59 11:59 Intake Total 800 / 800 1160 / 1160 Output Total 0 / 0 600 / 600 Balance 800 / 800 560 / 560 Weight 157 lb 6.4 oz 158 lb 1.6 oz Constitutional Constitutional: mild distress *Routine Respiratory Exam Respiratory: Present wheezes; Absent rhonchi or crackles *Routine Cardiovascular Exam Cardiovascular: Present RRR and murmur; Absent gallop or rubs *Routine Extremities Exam Extremities: Absent edema *Routine Neurological Exam Neurological: Present alert and CN II-XII intact Meds Home Medications and Allergies Home Medications ?Medication ?Instructions ?Recorded ?Confirmed ?Type trazodone 100 mg tablet 100 mg PO HS 01/18/24 06/02/24 History divalproex 500 mg tablet,delayed 500 mg PO TID #90 tabs 01/24/24 06/02/24 Rx release clonazepam 1 mg tablet 0.5 mg (1/2 x 1 mg) PO BIDP PRN 02/14/24 06/02/24 Rx Anxiety #30 tabs bupropion HCl 300 mg 24 hr tablet, 300 mg PO DAILY #90 tabs 02/23/24 06/02/24 Rx extended release empagliflozin 10 mg tablet 10 mg PO DAILY 90 days #90 tabs 02/23/24 06/02/24 Rx (Jardiance) dextromethorphan 20 mg-quinidine 1 cap PO BID #60 caps 03/20/24 06/02/24 Rx 10 mg capsule (Nuedexta) irbesartan 75 mg tablet 75 mg PO DAILY 30 days #30 tabs 03/20/24 06/02/24 Rx spironolactone 25 mg tablet 25 mg PO DAILY 30 days #30 tabs 03/20/24 06/02/24 Rx escitalopram oxalate 10 mg tablet 10 mg PO DAILY #90 tabs 03/30/24 06/02/24 Rx (Lexapro) albuterol sulfate 90 mcg/actuation 1 inh inhalation Q4HP PRN 03/31/24 06/02/24 History aerosol inhaler (Ventolin HFA) Shortness Of Breath ipratropium 0.5 mg-albuterol 3 mg 3 ml inhalation QIDP PRN shortness 03/31/24 06/02/24 History (2.5 mg base)/3 mL nebulization of breath or wheezing soln omeprazole 20 mg capsule,delayed 20 mg PO DAILY 03/31/24 06/02/24 History release carvedilol 3.125 mg tablet 3.125 mg PO BID 30 days #60 tabs 04/01/24 06/02/24 Rx furosemide 40 mg tablet 40 mg PO BIDL 30 days #60 tabs 04/01/24 06/02/24 Rx rimegepant 75 mg disintegrating 75 mg PO ONCE PRN migraine 04/26/24 06/02/24 Rx tablet (Nurtec ODT) headache #10 tabs gabapentin 300 mg capsule 300 mg PO TID #90 caps 05/18/24 06/02/24 Rx New Prescriptions to Start Prescriptions: Allergies Allergy/AdvReac Type Severity Reaction Status Date / Time nicotine AdvReac Rash Verified 05/28/24 10:44 Assessment and Plan *Assessment and plan (1) Unstable angina: Status: Acute Category: Medical Code(s): I20.0 - Unstable angina (2) Cognitive impairment: Status: Acute Category: Medical Code(s): R41.89 - Other symptoms and signs involving cognitive functions and awareness (3) Acute on chronic heart failure with preserved ejection fraction (HFpEF): Status: Acute Category: Medical Code(s): I50.33 - Acute on chronic diastolic (congestive) heart failure (4) Tobacco dependence: Status: Acute Category: Medical Code(s): F17.200 - Nicotine dependence, unspecified, uncomplicated (5) REYMUNDO and COPD overlap syndrome: Status: Acute Category: Medical Code(s): G47.33 - Obstructive sleep apnea (adult) (pediatric); J44.9 - Chronic obstructive pulmonary disease, unspecified (6) Obesity: Status: Acute Qualifiers: Body mass index: BMI 33.0-33.9 Obesity classification: adult class 1 (BMI 30 - 34.9) Obesity type: due to excess calories Serious obesity comorbidity presence: with serious comorbidity Qualified Code(s): E66.09 - Other obesity due to excess calories; Z68.33 - Body mass index [BMI] 33.0-33.9, adult Category: Medical Code(s): E66.9 - Obesity, unspecified (7) Tobacco use: Problem Comment: smoking cessation discussed Status: Acute Category: Social Hx Code(s): Z72.0 - Tobacco use (8) Pulmonary hypertension: Status: Acute Category: Medical Code(s): I27.20 - Pulmonary hypertension, unspecified Plan 1. Unstable angina with recurrent chest pain -Troponins normal x 3 -Lexiscan Myoview earlier this year showed no ischemia with normal EF -Echocardiogram today is pending -On carvedilol and irbesartan but blood pressure is borderline low -Continue aspirin and Plavix 2. Cognitive impairment complicates all aspects of care 3. Pulmonary disease including pulmonary hypertension/COPD/REYMUNDO -Followed by pulmonary as an outpatient 4. Continued tobacco use 5. HFpEF -On GDMT with Jardiance, irbesartan, carvedilol, spironolactone and Lasix Echo shows EF 60% with RVSP 60 mm hg. Right and left heart cath results: Normal coronary arteries in the main 3 vessels with moderate stenosis in the proximal portion of a medium sized first diagonal artery Normal ejection fraction Mildly elevated LVEDP Severe pulmonary hypertension No evidence of intracardial pulmonary shunt PLAN 1. Medical management for coronary artery disease 2. Further workup for pulmonary etiologies of pulmonary hypertension 3. Referral to pulmonary hypertension clinic 4. Consider diuretics due to elevated LVEDP as well as treatment of hypertension. Consider vasodilator therapy Electronically signed by : Alvarez Bailey MD 06/04/2024 13:00:07 Chest pain shortness of breath felt secondary to pulmonary artery hypertension. Results of right left heart cath as noted above. Will discontinue carvedilol. Monitor blood pressure at home and consider starting amlodipine and/or isosorbide as an outpatient as blood pressure tolerate. Continue diuretic therapy. Home med recommendations: Jardiance 10 mg daily Lasix 40 mg twice daily Irbesartan 75 mg daily Spironolactone 25 mg daily Atorvastatin 40 mg daily Follow-up in our office in 1 week.
[2024-06-04] MEDS: LIDOCAINE 1% 10ML MDV 20 ML IJ (11:38)
[2024-06-04] MEDS: diphenhydrAMINE 50MG/ML VIAL 50 MG IV (11:38)
[2024-06-04] MEDS: HEPARIN 1,000 UNITS/ML 10ML VIAL (CATH LAB) 10000 UNIT IV (11:38)
[2024-06-04] MEDS: NITROGLYCERIN 800MCG/8ML SYR (CATH LAB) 800 MCG IA (11:38)
[2024-06-04] MEDS: VERAPAMIL 2.5MG/ML 2ML VIAL 2.5 MG IV (11:38)
[2024-06-04] MEDS: 0.9 % SODIUM CHLORIDE 500 ML 25 ML IV (11:39)
[2024-06-04] MEDS: HEPARIN 1,000 UNITS/500ML NS (CATH LAB) 3000 UNIT IV (11:39)
[2024-06-04] MEDS: MIDAZOLAM HCL 1MG/ML 5ML VIAL 1 MG IV (11:39)
[2024-06-04] MEDS: FENTANYL 100MCG/2ML VIAL 50 MCG IV (11:40)
--- NOTE | 2024-06-04 13:34 | SUR.PHASEII ---
7 FR RIGHT IJ SHEATH PULLED BY Gin BANUELOS AT 1310- DRESSING IS CDI
--- NOTE | 2024-06-04 14:25 | SW/DCPLANNER ---
I spoke w/ patient and her sister regarding plans once medically stable for discharge. Patient resides in [facility] w/ her sister. Sister stated that patient does well at home at this time. Sister also stated that she does have to assist patient w/ task at home. Patient/family stated they did not have any further needs at this time and the plan is for patient to return home. Patient/sister stated they will have transportation at time of discharge.
[2024-06-04 15:19] LABS: CATHL Arterial O2 SAT 83.4 % (90-100)
[2024-06-04 15:20] LABS: CATHL Venous O2 SAT 83.8 % (75-80)
[2024-06-04] MEDS: IOPAMIDOL-370 (76%);100ML BOTTLE 40 ML IV (15:29)
--- NOTE | 2024-06-05 14:21 | CARE MANAGER ---
Called and spoke with patient's sister regarding recent discharge. She stated that she is doing well, was aware of scheduled f/u appts and had no concerns at time of call.
== END 2024-06-04 17:26 | disposition home or self-care (01) ==
LOC: ER 23:58 → 2ND 06-03 00:09
PROVIDERS: Internal Medicine; Physician Assistant; Admitting Provider Student in an Organized Health Care Education/Training Program; Emergency Provider Student in an Organized Health Care Education/Training Program; PCP Family Medicine; Visit Provider Student in an Organized Health Care Education/Training Program
DX: I25.110 Atherosclerotic heart disease of native coronary artery with unstable angina pectoris (principal); I11.0 Hypertensive heart disease with heart failure; I50.33 Acute on chronic diastolic (congestive) heart failure; J44.1 Chronic obstructive pulmonary disease with (acute) exacerbation; F17.210 Nicotine dependence, cigarettes, uncomplicated; G47.33 Obstructive sleep apnea (adult) (pediatric); E66.09 Other obesity due to excess calories; Z68.33 Body mass index [BMI] 33.0-33.9, adult; I27.20 Pulmonary hypertension, unspecified; Z79.899 Other long term (current) drug therapy; Z99.81 Dependence on supplemental oxygen; Z86.16 Personal history of COVID-19
CPT/HCPCS: 36415; 71045; 80048; 80053; 82810; 83735; 83880; 84484; 85007; 85025; 85027; 85378; 87636; 93005; 93306; 93460; 99152; 99285; C1725; C1769; C1894; G0378; J1200; J1644; J1650; J1885; J2250; J2270; J2919; J3010; J7620; Q9967

== ENCOUNTER 2024-06-07 13:12 | Outpatient (CLI) | payer MEDICAID, SELFPAY ==
--- NOTE | 2024-06-07 13:22 | US_ITS ---
FINAL REPORT CLINICAL HISTORY: claudication, smoker, COPD COMPARISON: None FINDINGS: ANKLE-BRACHIAL PRESSURE INDICES Pressure indices are as follows: RIGHT LOWER EXTREMITY: Ankle-brachial pressure index: 1.0 Comments: Normal LEFT LOWER EXTREMITY: Ankle-brachial pressure index: 0.83 Comments: Mild vascular disease CONCLUSION: Normal right ankle-brachial pressure index. Mild vascular disease left lower extremity. Authenticated and ERN
== END 2024-06-07 23:59 | disposition home or self-care (01) ==
LOC: RT 13:13
PROVIDERS: PCP Family Medicine; Visit Provider Nurse Practitioner Family
DX: R09.89 Other specified symptoms and signs involving the circulatory and respiratory systems (principal); M79.2 Neuralgia and neuritis, unspecified
CPT/HCPCS: 93923

== ENCOUNTER 2024-06-27 18:35 | Observation (INO) | payer MEDICAID, SELFPAY ==
[2024-06-27] VITALS (8 sets, daily range): BP systolic 109–126; BP diastolic 61–86; PULSE 90–98; RESP 15–18; TEMP 36.6–37.1; O2SAT 94–98; BMI 27.1; BMI 26.9
--- NOTE | 2024-06-27 18:40 | ED_ITS ---
Discharge Plan Disposition Patient Disposition: Admitted Condition: Good Prescriptions Prescriptions: No Action spironolactone 25 mg tablet 25 mg PO BID Qty: 60 5RF risperidone [Risperdal] 0.5 mg tablet 0.5 mg PO BID Qty: 60 2RF Jardiance 10 mg tablet 10 mg PO DAILY 90 Days Qty: 90 2RF escitalopram oxalate [Lexapro] 10 mg tablet 10 mg PO DAILY Qty: 90 1RF Nurtec ODT 75 mg tablet,disintegrating 75 mg PO ONCE PRN (Reason: migraine headache) Qty: 10 12RF Nuedexta 20-10 mg capsule 1 cap PO BID Qty: 60 3RF bupropion HCl 300 mg tablet extended release 24 hr 300 mg PO DAILY Qty: 90 0RF divalproex 500 mg tablet,delayed release (DR/EC) 500 mg PO TID Qty: 90 4RF irbesartan 75 mg tablet 75 mg PO DAILY 30 Days Qty: 30 4RF clonazepam 1 mg tablet 0.5 mg PO BIDP PRN (Reason: Anxiety) Qty: 30 0RF gabapentin 300 mg capsule 300 mg PO TID Qty: 90 0RF ipratropium-albuterol 0.5 mg-3 mg(2.5 mg base)/3 mL solution for nebulization 3 ml inhalation QIDP PRN (Reason: shortness of breath or wheezing) omeprazole 20 mg capsule,delayed release(DR/EC) 20 mg PO DAILY albuterol sulfate [Ventolin HFA] 90 mcg/actuation HFA aerosol inhaler 1 inh inhalation Q4HP PRN (Reason: Shortness Of Breath) carvedilol 3.125 mg Tablet 3.125 mg PO BID 30 Days Qty: 60 0RF furosemide 40 mg tablet 40 mg PO BIDL 30 Days Qty: 60 4RF Referrals Follow up/Referrals: Kb Ling MD [Primary Care Provider] - See instructions Clinical Impressions Clinical Impression: Right lower lobe pneumonia Qualifiers: Pneumonia type: due to unspecified organism Qualified Code(s): J18.9 - Pneumonia, unspecified organism Print Language Print Language: Trinidadian Discharge ED Provider: Barak Rosas General Adult HPI <SCOTTIE Olea - Last Filed: 06/27/24 20:02> General Chief complaint: Shortness of Breath/Dyspnea Stated complaint: SOA Time Seen by Provider: 06/27/24 18:40 History of Present Illness HPI narrative: Patient presents for dilation of dyspnea and shortness of breath. Patient had baseline has a cognitive impairment and makes her a difficult and somewhat unreliable historian. Most of the history comes from the family members in the room. She has a past medical history of COPD chronically on 2 L by nasal cannula, obstructive sleep apnea, GERD, pulmonary hypertension, essential hypertension, heart failure with preserved ejection fraction, neuropathy, anxiety disorder, a seizure disorder and longstanding cognitive impairment patient and family numbers gives a history of increasing subjective shortness of breath and difficulty breathing. They denied fever chills hemoptysis hematochezia melena nausea vomiting diarrhea. Patient states her chest hurts to breathe however. Related Data Home Medications ?Medication ?Instructions ?Recorded ?Confirmed albuterol sulfate 90 mcg/actuation 1 inh inhalation Q4HP PRN 03/31/24 06/27/24 aerosol inhaler (Ventolin HFA) Shortness Of Breath ipratropium 0.5 mg-albuterol 3 mg 3 ml inhalation QIDP PRN shortness 03/31/24 06/27/24 (2.5 mg base)/3 mL nebulization of breath or wheezing soln omeprazole 20 mg capsule,delayed 20 mg PO DAILY 03/31/24 06/27/24 release Previous Rx's ?Medication ?Instructions ?Recorded empagliflozin 10 mg tablet 10 mg PO DAILY 90 days #90 tabs 02/23/24 (Jardiance) escitalopram oxalate 10 mg tablet 10 mg PO DAILY #90 tabs 03/30/24 (Lexapro) carvedilol 3.125 mg tablet 3.125 mg PO BID 30 days #60 tabs 04/01/24 furosemide 40 mg tablet 40 mg PO BIDL 30 days #60 tabs 04/01/24 rimegepant 75 mg disintegrating 75 mg PO ONCE PRN migraine 04/26/24 tablet (Nurtec ODT) headache #10 tabs dextromethorphan 20 mg-quinidine 1 cap PO BID #60 caps 06/08/24 10 mg capsule (Nuedexta) bupropion HCl 300 mg 24 hr tablet, 300 mg PO DAILY #90 tabs 06/13/24 extended release divalproex 500 mg tablet,delayed 500 mg PO TID #90 tabs 06/13/24 release irbesartan 75 mg tablet 75 mg PO DAILY 30 days #30 tabs 06/13/24 clonazepam 1 mg tablet 0.5 mg (1/2 x 1 mg) PO BIDP PRN 06/14/24 Anxiety #30 tabs gabapentin 300 mg capsule 300 mg PO TID #90 caps 06/14/24 risperidone 0.5 mg tablet 0.5 mg PO BID #60 tabs 06/19/24 (Risperdal) spironolactone 25 mg tablet 25 mg PO BID #60 tabs 06/21/24 Allergies Allergy/AdvReac Type Severity Reaction Status Date / Time nicotine AdvReac Rash Verified 06/21/24 09:26 [facility] <SCOTTIE Olea - Last Filed: 06/27/24 20:02> [facility] Disclaimer: The information contained in this section may have been updated after the patient was seen, as this information can be updated by other users. Medical History Diminished pulses in lower extremity Leg numbness Chronic asthmatic bronchitis Closed nondisplaced fracture of fifth metatarsal bone of left foot with routine healing Avulsion fracture Respiratory failure with hypercapnia Right lower lobe pneumonia Encounter for general medical examination Lower GI bleeding Abnormal laboratory test result Asthma exacerbation in COPD Acute chest wall pain Pneumonia UTI (urinary tract infection) Recurrent pneumonia Acute viral syndrome Abnormal electrocardiogram [ECG] [EKG] Cough Diarrhea REYMUNDO (obstructive sleep apnea) (HFpEF) heart failure with preserved ejection fraction Oxygen dependent Neuropathy Smoking greater than 30 pack years Mediastinal lymphadenopathy Pulmonary embolism Dyspnea on exertion Acute diastolic CHF (congestive heart failure) Pulmonary hypertension Hilar lymphadenopathy Pleural effusion on right Pneumonia Anxiety disorder Seizure disorder Mood disorder Incontinence INCONTINENCE AT TIMES History of COVID-19 Asthma History of gastroesophageal reflux (GERD) Allergies Depression Anxiety Urinary tract infection Migraine COPD (chronic obstructive pulmonary disease) Hyperlipidemia Hypertension Surgical History History of colonoscopy History of breast biopsy History of hysterectomy History of cholecystectomy Family History Father Lung cancer Sister Ovarian cancer Kidney disease Lung cancer Mother Kidney disease Other Family history of diabetes mellitus type II Family history of hyperlipidemia Family history of hypertension Family history of migraine headaches Family history of myocardial infarction Social History (Reviewed 06/21/24 @ 09:25 by Kaye Villalba Smoking Status: Former smoker tobacco type: cigarettes packs per day: 1 alcohol intake: never counseling provided: none substance use type: denies use current occupational status: disabled caregiver/support person: Yes household members: caregiver housing: assisted living facility lives independently: No do you feel safe at home: Yes victim of physical abuse: No victim of emotional abuse: No victim of sexual abuse: No would you like helpful sources: No Other Medical History Have you received the Flu Vaccine for this season: No Have you received the Pneumonia Vaccine: No <SCOTTIE Olea - Last Filed: 06/27/24 20:02> ROS Obtained: Yes Systems reviewed as appropriate & no additional complaints except as documented Physical Exam <SCOTTIE Olea - Last Filed: 06/27/24 20:02> General General appearance: alert and in no apparent distress Respiratory Respiratory exam: Present normal lung sounds bilaterally Cardiovascular Cardiovascular exam: Present regular rate Neurological Exam Neurological exam: Present alert Medical Decision Making <SCOTTIE Olea - Last Filed: 06/27/24 20:02> Medical Records Medical records reviewed: Yes I reviewed the patient's medical records. Screening: Per USPSTF and CDC recommendations, given the prevalence of disease in our region, it is our hospital?s policy to screen for HIV and viral Hepatitis for all patients aged 18 and over and those with ongoing risk factors. Vlad Inquiry Pt receiving controlled substance: No Vital Signs: 06/27/24 18:36 06/27/24 18:50 06/27/24 19:00 Temperature 98.8 F 98 F Temperature Source Oral Temporal Artery Scan Pulse Rate 98 H 95 H Pulse Rate [Left Radial] 96 H Respiratory Rate 16 17 16 Blood Pressure 122/83 113/86 Blood Pressure [Right Arm] 122/83 Blood Pressure Mean 90 Blood Pressure Mean [Right Arm] 96 02 Sat by Pulse Oximetry 98 94 L 96 Oxygen Delivery Method Nasal Cannula Nasal Cannula Oxygen Flow Rate (LPM) 2 2 06/27/24 19:30 Temperature Temperature Source Pulse Rate 90 Pulse Rate [Left Radial] Respiratory Rate 15 Blood Pressure 109/61 L Blood Pressure [Right Arm] Blood Pressure Mean 82 Blood Pressure Mean [Right Arm] 02 Sat by Pulse Oximetry 98 Oxygen Delivery Method Aerosol Mask Oxygen Flow Rate (LPM) 10 Lab Data Lab results reviewed: Yes I reviewed the patient's lab results. Lab Results 06/27/24 18:47: WBC 10.9 H, RBC 4.81, Hgb 12.6, Hct 39.1, MCV 81.4, MCH 26.1 L, MCHC 32.1, RDW 16.0, Plt Count 355, MPV 7.4, Neut % (Auto) 81.3 H, Lymph % (Auto) 11.9, [place] % (Auto) 6.0, Eos % (Auto) 0.3, Baso % (Auto) 0.5, Neut # (Auto) 8.8 H, Lymph # (Auto) 1.3, [place] # (Auto) 0.7, Eos # (Auto) 0.0, Baso # (Auto) 0.1, Sodium 137, Potassium 4.2, Chloride 98, Carbon Dioxide 34 H, Anion Gap 9.2, BUN 22 H, Creatinine 0.60, Estimated Creat Clear 119, Estimated GFR 105, Est GFR ( Amer) 127, Glucose 99, Calcium 8.5, Magnesium 2.0, Total Bilirubin 0.5, AST 21, ALT 11 L, Alkaline Phosphatase 110, NT-Pro-B Natriuret Pep 1190 H, Total Protein 7.6, Albumin 3.6, Globulin 4.0 H, Albumin/Globulin Ratio 0.9 L 06/27/24 18:59: VBG pH 7.41, VBG pCO2 50.3, VBG pO2 39.2, VBG HCO3 31.5 H, VBG Total CO2 33.0 H, VBG O2 Saturation 75.5 H, VBG Base Excess 6.9 H, VBG Lactic Acid 1.8 06/27/24 18:47 06/27/24 18:47 Orders (Tests/Meds): ED MEDICATIONS Generic Name Dose Route Start Last Admin Trade Name Freq PRN Reason Stop Dose Admin Ceftriaxone Sodium 1 gm/ 50 mls @ 100 mls/hr 06/27/24 19:45 06/27/24 19:49 Sodium Chloride IV 06/27/24 20:14 100 mls/hr ONCE ONE Administration Azithromycin 500 mg/ Sodium 250 mls @ 250 mls/hr 06/27/24 19:45 06/27/24 19:53 Chloride IV 06/27/24 20:44 250 mls/hr ONCE ONE Administration Discontinued Medications Generic Name Dose Route Start Last Admin Trade Name Louieq PRN Reason Stop Dose Admin Acetaminophen 1,000 mg 06/27/24 18:58 06/27/24 19:14 Acetaminophen 500mg Tab PO 06/27/24 18:59 1,000 mg ONCE ONE Administration Albuterol/Ipratropium 9 ml 06/27/24 18:58 06/27/24 19:14 Ipratropium/Albuterol 3 Ml Neb IH 06/27/24 18:59 9 ml ONCE ONE Administration Dexamethasone Sodium Phosphate 10 mg 06/27/24 18:58 06/27/24 19:14 Dexamethasone 4mg/Ml 5ml Mdv IV 06/27/24 18:59 10 mg ONCE ONE Administration Ketorolac Tromethamine 15 mg 06/27/24 18:58 06/27/24 19:14 Ketorolac 30mg/Ml Vial IV 06/27/24 18:59 15 mg ONCE ONE Administration ORDERS Category Date Time Status CXR --portable [XR chest portable] Stat Exams 06/27/24 19:13 Taken BNP [NT Pro Brain Natriuretic Pep.] Stat Lab 06/27/24 18:47 Completed CBC w/Auto Diff [Complete Blood Count Auto Diff] Stat Lab 06/27/24 18:47 Completed CMP [Comprehensive Metabolic Panel] Stat Lab 06/27/24 18:47 Completed Full Resp Panel w/COVID ([facility]) Routine Lab 06/27/24 19:34 Received Magnesium Stat Lab 06/27/24 18:47 Completed Blood Culture Stat Micro 06/27/24 19:47 Received VBG [Venous Blood Gas] Stat RT 06/27/24 18:59 Completed Medical Decision Narrative: In summary patient is a 53-year-old female who presents to the emergency department for evaluation of dyspnea. Patient is hemodynamically stable with a blood pressure of 122/83 heart rate 96 respiratory rate 16 O2 sats 98% on 2 L by nasal cannula upon arrival, febrile. Physical exam is remarkable for in respiratory wheezes primarily in the dependent areas of the lung but no significant increased work of breathing.. Differential diagnosis includes COPD exacerbation versus pneumonia versus heart failure etc. Initial workup will be conducted with hematologic labs plain film chest x-ray respiratory panel. Initial interventions include Toradol Tylenol DuoNeb Decadron. Initial workup reviewed by me and her white count is 10.9 but her absolute neutrophil count is 8.8, venous blood gas shows pH 7.41 and a venous blood gas lactic acid 1.8 and her NT proBNP is 1190 which she is not far off from her normal dry baseline with the remainder of her hematologic labs to be nonactionable. Full respiratory panel is pending however my informal interpretation of her plain film chest x- ray shows probable right right lower lobe pneumonia. Given this even though she does not have a new oxygen requirement I had an interactive discussion with hospital medicine due to her comorbid conditions about patient management and she will be admitted for further evaluation and care. <Barak Rosas MD - Last Filed: 06/27/24 20:06> Vlad Inquiry Pt receiving controlled substance: No Vital Signs: 06/27/24 18:36 06/27/24 18:50 06/27/24 19:00 Temperature 98.8 F 98 F Temperature Source Oral Temporal Artery Scan Pulse Rate 98 H 95 H Pulse Rate [Left Radial] 96 H Respiratory Rate 16 17 16 Blood Pressure 122/83 113/86 Blood Pressure [Right Arm] 122/83 Blood Pressure Mean 90 Blood Pressure Mean [Right Arm] 96 02 Sat by Pulse Oximetry 98 94 L 96 Oxygen Delivery Method Nasal Cannula Nasal Cannula Oxygen Flow Rate (LPM) 2 2 06/27/24 19:30 Temperature Temperature Source Pulse Rate 90 Pulse Rate [Left Radial] Respiratory Rate 15 Blood Pressure 109/61 L Blood Pressure [Right Arm] Blood Pressure Mean 82 Blood Pressure Mean [Right Arm] 02 Sat by Pulse Oximetry 98 Oxygen Delivery Method Aerosol Mask Oxygen Flow Rate (LPM) 10 Lab Data Lab Results 06/27/24 18:47: WBC 10.9 H, RBC 4.81, Hgb 12.6, Hct 39.1, MCV 81.4, MCH 26.1 L, MCHC 32.1, RDW 16.0, Plt Count 355, MPV 7.4, Neut % (Auto) 81.3 H, Lymph % (Auto) 11.9, [place] % (Auto) 6.0, Eos % (Auto) 0.3, Baso % (Auto) 0.5, Neut # (Auto) 8.8 H, Lymph # (Auto) 1.3, [place] # (Auto) 0.7, Eos # (Auto) 0.0, Baso # (Auto) 0.1, Sodium 137, Potassium 4.2, Chloride 98, Carbon Dioxide 34 H, Anion Gap 9.2, BUN 22 H, Creatinine 0.60, Estimated Creat Clear 119, Estimated GFR 105, Est GFR ( Amer) 127, Glucose 99, Calcium 8.5, Magnesium 2.0, Total Bilirubin 0.5, AST 21, ALT 11 L, Alkaline Phosphatase 110, NT-Pro-B Natriuret Pep 1190 H, Total Protein 7.6, Albumin 3.6, Globulin 4.0 H, Albumin/Globulin Ratio 0.9 L 06/27/24 18:59: VBG pH 7.41, VBG pCO2 50.3, VBG pO2 39.2, VBG HCO3 31.5 H, VBG Total CO2 33.0 H, VBG O2 Saturation 75.5 H, VBG Base Excess 6.9 H, VBG Lactic Acid 1.8 Orders (Tests/Meds): ED MEDICATIONS Generic Name Dose Route Start Last Admin Trade Name Louieq PRN Reason Stop Dose Admin Ceftriaxone Sodium 1 gm/ 50 mls @ 100 mls/hr 06/27/24 19:45 06/27/24 19:49 Sodium Chloride IV 06/27/24 20:14 100 mls/hr ONCE ONE Administration Azithromycin 500 mg/ Sodium 250 mls @ 250 mls/hr 06/27/24 19:45 06/27/24 19:53 Chloride IV 06/27/24 20:44 250 mls/hr ONCE ONE Administration Discontinued Medications Generic Name Dose Route Start Last Admin Trade Name Louieq PRN Reason Stop Dose Admin Acetaminophen 1,000 mg 06/27/24 18:58 06/27/24 19:14 Acetaminophen 500mg Tab PO 06/27/24 18:59 1,000 mg ONCE ONE Administration Albuterol/Ipratropium 9 ml 06/27/24 18:58 06/27/24 19:14 Ipratropium/Albuterol 3 Ml Neb IH 06/27/24 18:59 9 ml ONCE ONE Administration Dexamethasone Sodium Phosphate 10 mg 06/27/24 18:58 06/27/24 19:14 Dexamethasone 4mg/Ml 5ml Mdv IV 06/27/24 18:59 10 mg ONCE ONE Administration Ketorolac Tromethamine 15 mg 06/27/24 18:58 06/27/24 19:14 Ketorolac 30mg/Ml Vial IV 06/27/24 18:59 15 mg ONCE ONE Administration ORDERS Category Date Time Status CXR --portable [XR chest portable] Stat Exams 06/27/24 19:13 Taken BNP [NT Pro Brain Natriuretic Pep.] Stat Lab 06/27/24 18:47 Completed CBC w/Auto Diff [Complete Blood Count Auto Diff] Stat Lab 06/27/24 18:47 Completed CMP [Comprehensive Metabolic Panel] Stat Lab 06/27/24 18:47 Completed Full Resp Panel w/COVID ([facility]) Routine Lab 06/27/24 19:34 Received Magnesium Stat Lab 06/27/24 18:47 Completed Blood Culture Stat Micro 06/27/24 19:47 Received VBG [Venous Blood Gas] Stat RT 06/27/24 18:59 Completed ECG Data Tracing #1: Independently interpreted by me rate is 99, rhythm is regular, axis is rightward deviated, no ST elevation in anatomical contiguous leads, QTc 415 Medical Decision Narrative: In summary patient is a 53-year-old female who presents to the emergency department for evaluation of dyspnea. Patient is hemodynamically stable with a blood pressure of 122/83 heart rate 96 respiratory rate 16 O2 sats 98% on 2 L by nasal cannula upon arrival, febrile. Physical exam is remarkable for in respiratory wheezes primarily in the dependent areas of the lung but no significant increased work of breathing.. Differential diagnosis includes COPD exacerbation versus pneumonia versus heart failure etc. Initial workup will be conducted with hematologic labs plain film chest x-ray respiratory panel. Initial interventions include Toradol Tylenol DuoNeb Decadron. Initial workup reviewed by me and her white count is 10.9 but her absolute neutrophil count is 8.8, venous blood gas shows pH 7.41 and a venous blood gas lactic acid 1.8 and her NT proBNP is 1190 which she is not far off from her normal dry baseline with the remainder of her hematologic labs to be nonactionable. Full respiratory panel is pending however my informal interpretation of her plain film chest x- ray shows probable right right lower lobe pneumonia. Given this even though she does not have a new oxygen requirement I had an interactive discussion with hospital medicine due to her comorbid conditions about patient management and she will be admitted for further evaluation and care. I was consulted by the ZACH, and we discussed the complexity of the problems being addressed. I approved the treatment and management plan for this patient's care in the emergency department, thus performing a substantive portion of the medical decision making. Chronic comorbid female on oxygen at baseline with right lower lobe pneumonia on my interpretation being covered appropriately for atypicals and standard bacterial pneumonia with ceftriaxone and azithromycin. Given the acuity of onset of symptoms patient will benefit from continued evaluation. Barak Rosas MD Critical Care <SCOTTIE Olea - Last Filed: 06/27/24 20:02> Critical Care Time Critical Care Time: No
--- OUTSIDE RECORDS SUMMARY | 2024-06-27 18:41 | XMS_ITS | Encounter Summary ---
Author Organization Healthcare Address [address] [id number] Care Team Providers Care Mh Teacher Name Role Phone Unavailable Primary Care Provider Unavailabl e Encounter Details Date Type Department Care Team (Latest Contact Info) Description 06/16/2022 9:15 AM EST Ancillary Procedure [facility] [address] [place] [address] COPD with exacerbation (CMS/HCC); CAP (community acquired pneumonia); Respiratory distress Social History Tobacco Use Types Packs/Day Years Used Date Smoking Tobacco: Never Assessed Comments Unknown Sex and Gender Information Value Date Recorded Sex Assigned at Not on file Legal Sex Female 9:11 AM EST Gender Identity Not on file Sexual Orientation Not on file documented as of this encounter Plan of Treatment Not on file documented as of this encounter Procedures Procedure Name Priority Date/Time Associated Diagnosis Comments ADULT ECHO OUTSIDE READ Routine 06/16/2022 9:13 AM EST COPD with exacerbation (CMS/HCC) CAP (community acquired pneumonia) Respiratory distress documented in this encounter Results * ADULT ECHO OUTSIDE READ (06/16/2022 9:13 AM EST) Baseline Systolic BP 72 JM ISCV Baseline Diastolic BP 42 JM ISCV Heart Rate 73 JM ISCV LVIDd 52 mm JM ISCV IVSd 10 mm JM ISCV LVPWd 9 mm JM ISCV LV RWT 0.37 mm JM ISCV MV E Vmax 70.0 cm/s JM ISCV LV Lat e' Velocity 7.6 cm/s JM ISCV LV Sept e' Jamaal 7.3 cm/s JM ISCV Lat E/e' 9.2 JM ISCV Sep E/e' 9.6 JM ISCV Avg E/e' 9.4 JM ISCV Anatomical Region Laterality Modality Echocardiography Narrative 06/16/2022 12:23 PM EST ?Left??Ventricle: The left ventricle is normal size. There is normal left ventricular myocardial thickness and mass. The left ventricular systolic function is normal.The LVEF is visually estimated at 55 - 60%. The left ventricular filling pressure is normal. ?Right??Ventricle: The right ventricle is normal in size. The right ventricular systolic function is normal. ?Valves: No significant valvular stenosis or regurgitation. ?Pericardium: No pericardial effusion. ?There is no recent study available for direct [id number] comparison. ?? Left Ventricle The left ventricle is normal size. There is normal left ventricular myocardial thickness and mass. The left ventricular systolic function is normal.The LVEF is visually estimated at 55 - 60%. No regional wall motion abnormalities are seen. The left ventricular filling pressure is normal. Right Ventricle The right ventricle is normal in size. The right ventricular systolic function is normal. Unable to estimate RVSP due to inadequate TR signal. Left Atrium The left atrial size is normal. Right Atrium The right atrial size is normal. IVC/SVC The IVC was not well visualized, and an assumed pressure of 8mmHg was used for calculations. Mitral Valve The mitral valve leaflets are normal in appearance with no evidence of mitral valve prolapse. There is trace mitral regurgitation. There is no mitral stenosis. Tricuspid Valve The tricuspid valve is normal in appearance. There is trace tricuspid regurgitation. There is no tricuspid stenosis. Aortic Valve The aortic valve appears to be trileaflet. There is no valvular regurgitation. There is no hemodynamically significant valvular aortic stenosis. Pulmonic Valve The pulmonic valve is grossly normal. There is no pulmonic regurgitation. There is no pulmonic stenosis. Pericardium No pericardial effusion. Great Vessels The aortic root is normal in size. Study Details This complete 2D, M-mode, and Doppler transthoracic echocardiogram was performed on site at [facility] ([place], [place]) and interpreted remotely by faculty at the [facility] ([place], [place]). BP: 72/42 mmHg. Heart Rate: 73 bpm. Study Recommendation There is no recent study available for direct [id number] comparison. Julio C Coats CV ECHO PROCEDURES Final Result documented in this encounter Visit Diagnoses Diagnosis COPD with exacerbation ([facility]) CAP (community acquired pneumonia) Pneumonia, organism unspecified Respiratory distress Other dyspnea and respiratory abnormality documented in this encounter
--- OUTSIDE RECORDS SUMMARY | 2024-06-27 18:41 | XMS_ITS | Clinical Summary ---
Author Organization [facility] Address [address] [place] [address] Care Team Providers Care Catalog Specialist Name Role Phone Unavailable Primary Care Provider Unavailabl e Social History Tobacco Use Types Packs/Day Years Used Date Smoking Tobacco: Never Assessed Comments Unknown Sex and Gender Information Value Date Recorded Sex Assigned at Not on file Legal Sex Female 9:11 AM EST Gender Identity Not on file Sexual Orientation Not on file Plan of Treatment Health Maintenance Due Date Last Done Comments [facility]-Depression Screening 1970 [facility]-Infant/Child/Adol SDOH Screenings 1970 [facility]- SDOH Screenings 1988 [facility]-Adult SDOH Screenings 1988 [facility]-DTaP,Tdap,and Td Vaccines (1 - Tdap) 1989 [facility]-Hepatitis B Vaccines (1 of 3 - 19+ 3-dose series) 1989 [facility]-Pap Smear 10/15/1991 [facility]-Cervical Cancer Screening 2000 [facility]-HPV/Cotest 2000 CT Colonography 10/15/2015 Colonoscopy 10/15/2015 FIT-DNA 10/15/2015 FIT 10/15/2015 FOBT 10/15/2015 Sigmoidoscopy 10/15/2015 [facility]-Colorectal Cancer Screening 10/15/2015 [facility]-Zoster Vaccines (1 of 2) 2020 [id number] Vaccine (2023- season) 2024 [facility]-Influenza Vaccine (#1) 04/01/202406/19, 05/23/2018, 05/25/2017, Additional history exists [facility]-RSV Vaccine: 60+ Years or (1 - 1-dose 75+ series) 2045 [facility]-HIB Vaccines Aged Out No longer e ligible based on patient's age to complete this topic [facility]-HPV Vaccines Aged Out No longer e ligible based on patient's age to complete this topic [facility]-Hepatitis A Vaccines Aged Out No longer eligible based on patient's age to complete this topic [facility]-IPV Vaccines Aged Out No longer e ligible based on patient's age to complete this topic [facility]-Pneumococcal Vaccine: Pediatrics (0 to 5 Years) and At-Risk Patients (6 to 64 Years) Aged Out No longer eligible based on patient's age to complete this topic [facility]-Rotavirus Vaccines Aged Out No lo nger eligible based on patient's age to complete this topic Insurance [employer]
--- NOTE | 2024-06-27 18:47 | ECG_ITS ---
APPROVED REPORT Exam: Resting ECG HR:99 bpm ECG Measurements Heart Rate 99 AXES QRSd 97 QRS 127 QT 359 T 45 QTc 415 Conclusion SUPRAVENTRICULAR RHYTHM RIGHT VENTRICULAR HYPERTROPHY [SOME/ALL OF: PROMINENT R IN V1, LATE TRANSITION, RAD, JACKIE, SSS] ABNORMAL ECG Significant chatter lateral leads Electronically signed by : ANGELINA DICKEY, 06/28/2024 00:18:12
[2024-06-27 19:13] LABS: Lactate Venous 1.8 mmol/L (0.4-2.0); VBG Base Excess 6.9 mmol/L (-2.4-2.3); VBG HCO3 31.5 mmol/L (23-30); VBG Oxygen Saturation 75.5 % (50-70); VBG PH 7.41 mmol/L (7.31-7.41); VBG PO2 39.2 mmol/L (28-40)
--- NOTE | 2024-06-27 19:13 | XR_ITS ---
PROCEDURE INFORMATION: Exam: XR Chest Exam date and time: 06/27/2024 7:19 PM Age: 53 years old Clinical indication: Shortness of breath and wheezing; Additional info: SOB cough wheeze TECHNIQUE: Imaging protocol: Radiologic exam of the chest. Views: 1 view. COMPARISON: CR XR CHEST PORTABLE 06/02/2024 10:17 PM FINDINGS: Lungs: Bibasilar subsegmental atelectasis. Pleural spaces: Small bilateral pleural effusions. No pneumothorax. Heart/Mediastinum: Unremarkable. No cardiomegaly. Bones/joints: Unremarkable. IMPRESSION: Pleural effusions with basilar subsegmental atelectasis.
[2024-06-27] MEDS: KETOROLAC 30MG/ML VIAL 15 MG IV (19:14)
[2024-06-27] MEDS: ACETAMINOPHEN 500MG TAB 1000 MG PO (19:14)
[2024-06-27] MEDS: IPRATROPIUM/ALBUTEROL 3 ML NEB 9 ML IH (19:14)
[2024-06-27] MEDS: DEXAMETHASONE 4MG/ML 5ML MDV 10 MG IV (19:14)
[2024-06-27 19:15] LABS: Basophils # 0.1 K/mm3 (0-0.2); Basophils % 0.5 % (0.1-2.0); Eosinophils % 0.3 % (0.1-12.0); Hematocrit 39.1 % (37.0-47.0); Hemoglobin 12.6 g/dL (12.2-16.2); Lymphocytes # 1.3 K/mm3 (0.7-4.5); Lymphocytes % 11.9 % (10-50); Mean Corpuscular HGB Conc 32.1 g/dL (31.8-35.4); Mean Corpuscular Hemoglobin 26.1 pg (27.0-31.2); Mean Corpuscular Volume 81.4 fl (81-99); Mean Platelet Volume 7.4 fl (7.4-10.4); Monocytes # 0.7 K/mm3 (0.1-1.0); Neutrophils # 8.8 K/mm3 (1.8-7.8); Neutrophils % 81.3 % (37.0-80.0); Platelet Count 355 K/mm3 (142-424); Red Blood Count 4.81 M/mm3 (4.20-5.40); White Blood Count 10.9 K/mm3 (4.8-10.8)
[2024-06-27 19:16] LABS: VBG PCO2 50.3 mmol/L (35-51)
[2024-06-27 19:35] LABS: Alanine Aminotransferase 11 U/L (12-78); Albumin Level 3.6 g/dl (3.5-5.0); Albumin/Globulin Ratio 0.9 (1.1-1.8); Alkaline Phosphatase 110 U/L (38-126); Anion Gap 9.2 mEq/L (5-15); Aspartate Amino Transferase 21 U/L (14-36); Bilirubin,Total 0.5 mg/dl (0.2-1.3); Blood Urea Nitrogen 22 mg/dl (7-17); Calcium 8.5 mg/dl (8.4-10.2); Carbon Dioxide 34 mmol/L (22.0-30.0); Chloride 98 mmol/L (98-107); Creatinine Clearance Estimated 119 mL/min (50-200); Estimated Glomerular Filt Rate 105 ml/min (>60); GFR (African American) 127 ML/MIN (>60); Glucose 99 mg/dl (74-100); Potassium 4.2 mmoL/L (3.5-5.1); Sodium 137 mmol/L (136-145); Total Protein,Serum 7.6 g/dl (6.3-8.2)
[2024-06-27 19:40] LABS: Adenovirus,PCR Not Detected (NotDetected); Bordetella Pertussis Not Detected (NotDetected); Chlamydophila Pneumoniae, PCR Not Detected (NotDetected); Coronavirus 19, PCR Not Detected (NotDetected); Coronavirus 229E Not Detected (NotDetected); Coronavirus NL63 Not Detected (NotDetected); Coronavirus OC43 Not Detected (NotDetected); Coronovirus HKU1,PCR Not Detected (NotDetected); Human Metapneumovirus Not Detected (NotDetected); Influenza A, PCR Not Detected (NotDetected); Influenza AH1, 2009 Not Detected (NotDetected); Influenza AH1, PCR Not Detected (NotDetected); Influenza AH3,PCR Not Detected (NotDetected); Influenza B, PCR Not Detected (NotDetected); Mycoplasma Pneumoniae, PCR Not Detected (NotDetected); Parainfluenza 1, PCR Not Detected (NotDetected); Parainfluenza 2, PCR Not Detected (NotDetected); Parainfluenza 3, PCR Not Detected (NotDetected); Parainfluenza 4, PCR Not Detected (NotDetected); Respiratory Syncytial Virus Not Detected (NotDetected); Rhinovirus/Enterovirus Not Detected (NotDetected)
[2024-06-27 19:45] LABS: NT Pro Brain Natriuretic Pep. 1190 pg/mL (0-125)
[2024-06-27] MEDS: CEFTRIAXONE 1 GM 1 GM in 0.9 % SODIUM CHLORIDE 50 ML IV (19:49)
--- NOTE | 2024-06-27 19:50 | PC.NURSE ---
2 sets of blood culture drawn and sent to the lab.
[2024-06-27] MEDS: AZITHROMYCIN 500 MG in 0.9 % SODIUM CHLORIDE 250 ML 250 MG IV (19:53)
--- NOTE | 2024-06-27 20:03 | PC.NURSE ---
House notified for admit
--- OUTSIDE RECORDS SUMMARY | 2024-06-27 20:09 | XMS_ITS | Encounter Summary ---
Author Organization Healthcare Address [address] [id number] Care Team Providers Care Telecommunications Network Planner Name Role Phone Unavailable Primary Care Provider Unavailabl e Encounter Details Date Type Department Care Team (Latest Contact Info) Description 06/16/2022 9:15 AM EST Ancillary Procedure [facility] [address] [place] [address] COPD with exacerbation (CMS/HCC); CAP [...] is no recent study available for direct [id number] comparison. ?? Left Ventricle The left ventricle [...] transthoracic echocardiogram was performed on site at [facility] ([place], [place]) and interpreted remotely by faculty at the [facility] ([place], [place]). BP: 72/42 mmHg. Heart Rate: 73 bpm. Study Recommendation There is no recent study available for direct [id number] comparison. Julio C Coats CV ECHO PROCEDURES Final Result documented in this encounter Visit Diagnoses Diagnosis COPD with exacerbation ([facility]) CAP (community acquired pneumonia) Pneumonia, organism unspecified Respiratory distress Other dyspnea and respiratory abnormality documented in this encounter
--- OUTSIDE RECORDS SUMMARY | 2024-06-27 20:09 | XMS_ITS | Clinical Summary ---
Author Organization [facility] Address [address] [place] [address] Care Team Providers Care Law Firm Receptionist Name Role Phone Unavailable Primary Care Provider [...] 10/15/2015 [facility]-Zoster Vaccines (1 of 2) 2020 [id number] Vaccine (2023- season) 2024 [facility]-Influenza Vaccine (#1) [...]
--- NOTE | 2024-06-27 20:23 | PC.NURSE ---
Report called. Waiting for transport
--- NOTE | 2024-06-27 20:39 | PC.NURSE ---
pt arrived to floor via wheelchair at this time
[2024-06-27] MEDS: IPRATROPIUM/ALBUTEROL 3 ML NEB IH ×2 (20:59→23:30)
[2024-06-27] MEDS: SODIUM CHLORIDE 3% 15ML NEB 3 ML IH (21:00)
--- NOTE | 2024-06-27 21:06 | P.HP_ITS ---
<Statement entered by Ector Persaud MD - 06/30/24 17:42> I personally evaluated patient and agree with the plan of care as outlined by the JOB PLACEMENT SPECIALIST. History of Present Illness *Admission Date: 06/27/24 *Reason for visit:: Cough, shortness of breath *History of present illness: Nestor Ardon is a 53-year-old female past medical history significant for COPD on 2 L nasal cannula, REYMUNDO, GERD, pulmonary hypertension, HTN, HFpEF, longstanding cognitive impairment, anxiety, seizure disorder who presents emergency room tonight with complaints of increasing shortness of breath. Patient tells me that she has had a worsening productive cough over the last couple of days. Reports yellow/green-colored sputum when she coughs it up. Denies any fever noted. Does states she feels a little more short of breath, also feels very congested. Describes a bit of lung pain when she breathes. Denies any nausea, vomiting, diarrhea. No chest pain noted. No focal neurodeficits noted. Denies tobacco use, alcohol use, illicit drug use. Is on her baseline 2 L of oxygen nasal cannula. Lab work in the ER showed an elevated white count of 10.9. BNP elevated at 1190. Urine appeared noninfectious. Chest x-ray showed some pleural effusions, basilar atelectasis versus early pneumonia. Lactic acid was 1.8, VBG was stable. With her productive cough and elevated white count, patient was covered for pneumonia with azithromycin and Rocephin while in the ER. She will be admitted to the hospitalist service for right lower lobe pneumonia. [facility] Disclaimer: The information contained in this section may have been updated after the patient was seen, as this information can be updated by other users. Medical History Diminished pulses in lower extremity Leg numbness Chronic asthmatic bronchitis Closed nondisplaced fracture of fifth metatarsal bone of left foot with routine healing Avulsion fracture Respiratory failure with hypercapnia Right lower lobe pneumonia Encounter for general medical examination Lower GI bleeding Abnormal laboratory test result Asthma exacerbation in COPD Acute chest wall pain Pneumonia UTI (urinary tract infection) Recurrent pneumonia Acute viral syndrome Abnormal electrocardiogram [ECG] [EKG] Cough Diarrhea REYMUNDO (obstructive sleep apnea) (HFpEF) heart failure with preserved ejection fraction Oxygen dependent Neuropathy Smoking greater than 30 pack years Mediastinal lymphadenopathy Pulmonary embolism Dyspnea on exertion Acute diastolic CHF (congestive heart failure) Pulmonary hypertension Hilar lymphadenopathy Pleural effusion on right Pneumonia Anxiety disorder Seizure disorder Mood disorder Incontinence INCONTINENCE AT TIMES History of COVID-19 Asthma History of gastroesophageal reflux (GERD) Allergies Depression Anxiety Urinary tract infection Migraine COPD (chronic obstructive pulmonary disease) Hyperlipidemia Hypertension Surgical History History of colonoscopy History of breast biopsy History of hysterectomy History of cholecystectomy Family History Father Lung cancer Sister Ovarian cancer Kidney disease Lung cancer Mother Kidney disease Other Family history of diabetes mellitus type II Family history of hyperlipidemia Family history of hypertension Family history of migraine headaches Family history of myocardial infarction Social History Smoking Status: Former smoker tobacco type: cigarettes packs per day: 1 alcohol intake: never counseling provided: none substance use type: denies use current occupational status: disabled caregiver/support person: Yes household members: caregiver housing: assisted living facility lives independently: No do you feel safe at home: Yes victim of physical abuse: No victim of emotional abuse: No victim of sexual abuse: No would you like helpful sources: No Other Medical History Have you received the Flu Vaccine for this season: No Have you received the Pneumonia Vaccine: No Review of Systems Review of Systems Review of systems:: pertinent systems reviewed and negative unless documented below *Cardiovascular Cardiovascular: Reports dyspnea *Respiratory Respiratory: Reports change in phlegm color (Productive cough with green/yellow sputum), Reports chest congestion and Reports dyspnea Meds Home Medications and Allergies Home Medications ?Medication ?Instructions ?Recorded ?Confirmed ?Type empagliflozin 10 mg tablet 10 mg PO DAILY 90 days #90 tabs 02/23/24 06/27/24 Rx (Jardiance) escitalopram oxalate 10 mg tablet 10 mg PO DAILY #90 tabs 03/30/24 06/27/24 Rx (Lexapro) albuterol sulfate 90 mcg/actuation 1 inh inhalation Q4HP PRN 03/31/24 06/27/24 History aerosol inhaler (Ventolin HFA) Shortness Of Breath ipratropium 0.5 mg-albuterol 3 mg 3 ml inhalation QIDP PRN shortness 03/31/24 06/27/24 History (2.5 mg base)/3 mL nebulization of breath or wheezing soln omeprazole 20 mg capsule,delayed 20 mg PO DAILY 03/31/24 06/27/24 History release carvedilol 3.125 mg tablet 3.125 mg PO BID 30 days #60 tabs 04/01/24 06/27/24 Rx furosemide 40 mg tablet 40 mg PO BIDL 30 days #60 tabs 04/01/24 06/27/24 Rx rimegepant 75 mg disintegrating 75 mg PO ONCE PRN migraine 04/26/24 06/27/24 Rx tablet (Nurtec ODT) headache #10 tabs dextromethorphan 20 mg-quinidine 1 cap PO BID #60 caps 06/08/24 06/27/24 Rx 10 mg capsule (Nuedexta) bupropion HCl 300 mg 24 hr tablet, 300 mg PO DAILY #90 tabs 06/13/24 06/27/24 Rx extended release divalproex 500 mg tablet,delayed 500 mg PO TID #90 tabs 06/13/24 06/27/24 Rx release irbesartan 75 mg tablet 75 mg PO DAILY 30 days #30 tabs 06/13/24 06/27/24 Rx clonazepam 1 mg tablet 0.5 mg (1/2 x 1 mg) PO BIDP PRN 06/14/24 06/27/24 Rx Anxiety #30 tabs gabapentin 300 mg capsule 300 mg PO TID #90 caps 06/14/24 06/27/24 Rx risperidone 0.5 mg tablet 0.5 mg PO BID #60 tabs 06/19/24 06/27/24 Rx (Risperdal) spironolactone 25 mg tablet 25 mg PO BID #60 tabs 06/21/24 06/27/24 Rx New Prescriptions to Start Prescriptions: Allergies Allergy/AdvReac Type Severity Reaction Status Date / Time nicotine AdvReac Rash Verified 06/21/24 09:26 Exam Data for Last 24 hours Vital signs and Labs for Last 24 Hours: Temp Pulse Resp BP Pulse Ox O2 Del Method O2 Flow Rate 98.7 F 96 H 18 126/70 94 L Nasal Cannula 2 06/27/24 20:55 06/27/24 21:03 06/27/24 21:03 06/27/24 20:55 06/27/24 20:55 06/27/24 20:55 06/27/24 20:55 Laboratory Results - last 24 hr 06/27/24 18:47: WBC 10.9 H, RBC 4.81, Hgb 12.6, Hct 39.1, MCV 81.4, MCH 26.1 L, MCHC 32.1, RDW 16.0, Plt Count 355, MPV 7.4, Neut % (Auto) 81.3 H, Lymph % (Auto) 11.9, [place] % (Auto) 6.0, Eos % (Auto) 0.3, Baso % (Auto) 0.5, Neut # (Auto) 8.8 H, Lymph # (Auto) 1.3, [place] # (Auto) 0.7, Eos # (Auto) 0.0, Baso # (Auto) 0.1, Sodium 137, Potassium 4.2, Chloride 98, Carbon Dioxide 34 H, Anion Gap 9.2, BUN 22 H, Creatinine 0.60, Estimated Creat Clear 119, Estimated GFR 105, Est GFR ( Amer) 127, Glucose 99, Calcium 8.5, Magnesium 2.0, Total Bilirubin 0.5, AST 21, ALT 11 L, Alkaline Phosphatase 110, NT-Pro-B Natriuret Pep 1190 H, Total Protein 7.6, Albumin 3.6, Globulin 4.0 H, Albumin/Globulin Ratio 0.9 L 06/27/24 18:59: VBG pH 7.41, VBG pCO2 50.3, VBG pO2 39.2, VBG HCO3 31.5 H, VBG Total CO2 33.0 H, VBG O2 Saturation 75.5 H, VBG Base Excess 6.9 H, VBG Lactic Acid 1.8 I & O for Last 24 hours: Intake & Output 06/24/24 06/25/24 06/26/24 06/27/24 23:59 23:59 23:59 23:59 Weight 69.037 kg Constitutional Constitutional: no acute distress *Routine HEENT Exam Head: Present normocephalic Eye: Present EOMI and PERRL ENT: Present mucous membranes moist *Routine Neck Exam Neck: Present supple; Absent lymphadenopathy *Routine Respiratory Exam Respiratory: Present rhonchi (Noted in the bases), normal respiratory effort and able to speak in complete sentences *Routine Cardiovascular Exam Cardiovascular: Present RRR *Routine Abdominal Exam Abdominal: Present soft and normoactive bowel sounds; Absent tenderness *Routine Rectal Exam Rectal:: deferred *Routine Genitalia Exam Genitalia:: deferred *Routine Extremities Exam Extremities: Absent cyanosis, clubbing or edema *Routine Skin Exam Skin: Present warm; Absent rash *Routine Neurological Exam Neurological: Present alert and oriented X3 Assessment and Plan *Assessment and plan (1) Right lower lobe pneumonia: Status: Acute Qualifiers: Pneumonia type: due to unspecified organism Qualified Code(s): J18.9 - Pneumonia, unspecified organism Category: Medical Code(s): J18.9 - Pneumonia, unspecified organism (2) Chronic bilateral pleural effusions: Status: Acute Category: Medical Code(s): J90 - Pleural effusion, not elsewhere classified (3) Intellectual disability with epilepsy: Status: Acute Category: Medical Code(s): F79 - Unspecified intellectual disabilities; G40.909 - Epilepsy, unspecified, not intractable, without status epilepticus (4) (HFpEF) heart failure with preserved ejection fraction: Status: Acute Qualifiers: Heart failure chronicity: unspecified Qualified Code(s): I50.30 - Unspecified diastolic (congestive) heart failure Category: Medical Code(s): I50.30 - Unspecified diastolic (congestive) heart failure (5) COPD (chronic obstructive pulmonary disease): Status: Acute Qualifiers: COPD type: COPD with acute exacerbation Qualified Code(s): J44.1 - Chronic obstructive pulmonary disease with (acute) exacerbation Category: Medical Code(s): J44.9 - Chronic obstructive pulmonary disease, unspecified (6) Pulmonary hypertension: Status: Acute Category: Medical Code(s): I27.20 - Pulmonary hypertension, unspecified Plan Assessment: This is a 53-year-old female being admitted for right lower lobe pneumonia. On my exam, patient is sitting up in bed in no acute distress. No complaints this time. Plan: Admit to observation-MedSurg Right lower lobe pneumonia Chronic hypoxic respiratory failure COPD -Will continue with azithromycin and Rocephin -Respiratory panel pending -Maintain SpO2 greater than 90%, patient is requiring her baseline oxygen of 2 L nasal cannula -DuoNebs every 6 hours -Mucinex -Aggressive pulmonary toilet HFpEF CAD Pulmonary hypertension -Patient appears euvolemic -Continue Lasix, Farxiga, spironolactone -Last left and right heart cath showed a normal LVEF, mildly elevated LVEDP, severe pulmonary hypertension, normal coronary arteries in the main 3 vessels HTN -Continue irbesartan GERD -continue PPI Cognitive disorder Anxiety Seizure disorder -Continue Klonopin, Neurontin, Depakote, Risperdal DVT prophylaxis: Lovenox CODE STATUS: Full code Surrogate decision maker: Anita [phone] Skin: Moderate risk Estimate length of stay: Less than 2 midnights
[2024-06-27] MEDS: CARVEDILOL 3.125MG TABLET 3.125 MG PO (21:56)
[2024-06-27] MEDS: PANTOPRAZOLE 40MG TABLET 40 MG PO (21:56)
[2024-06-27] MEDS: GABAPENTIN 300MG CAPSULE 300 MG PO (21:57)
[2024-06-27] MEDS: SPIRONOLACTONE 25MG TABLET 25 MG PO (21:57)
[2024-06-27] MEDS: DIVALPROEX 500MG (Delayed-Release) TABLET 500 MG PO (21:58)
[2024-06-27] MEDS: risperiDONE 0.5 MG TABLET PO (21:59)
[2024-06-27] MEDS: BENZONATATE 100MG CAPSULE 100 MG PO (23:24)
[2024-06-28] VITALS: BP 92/52; PULSE 82; RESP 17; TEMP 36.6; O2SAT 95
[2024-06-28 03:54] VITALS: BP 128/75; PULSE 80; RESP 17; TEMP 36.8; O2SAT 94; BMI 27.2
[2024-06-28 06:14] VITALS: PULSE 72; PULSE 76; O2SAT 94
[2024-06-28] MEDS: IPRATROPIUM/ALBUTEROL 3 ML NEB IH (06:14)
[2024-06-28 06:23] LABS: Anion Gap 8.8 mEq/L (5-15); Blood Urea Nitrogen 26 mg/dl (7-17); Calcium 8.2 mg/dl (8.4-10.2); Carbon Dioxide 33 mmol/L (22.0-30.0); Chloride 104 mmol/L (98-107); Creatinine Clearance Estimated 90 mL/min (50-200); Estimated Glomerular Filt Rate 75 ml/min (>60); GFR (African American) 91 ML/MIN (>60); Glucose 99 mg/dl (74-100); Potassium 4.8 mmoL/L (3.5-5.1); Sodium 141 mmol/L (136-145)
[2024-06-28 06:37] LABS: Basophils % 0.5 % (0.1-2.0); Eosinophils % 0.1 % (0.1-12.0); Hematocrit 35.3 % (37.0-47.0); Lymphocytes # 1.3 K/mm3 (0.7-4.5); Lymphocytes % 16.9 % (10-50); Mean Corpuscular HGB Conc 30.5 g/dL (31.8-35.4); Mean Corpuscular Hemoglobin 25.4 pg (27.0-31.2); Mean Corpuscular Volume 83.3 fl (81-99); Mean Platelet Volume 7.8 fl (7.4-10.4); Monocytes # 0.6 K/mm3 (0.1-1.0); Monocytes % 7.6 % (1.7-9.3); Neutrophils # 5.6 K/mm3 (1.8-7.8); Neutrophils % 74.9 % (37.0-80.0); Platelet Count 329 K/mm3 (142-424); Red Blood Count 4.24 M/mm3 (4.20-5.40); Red Cell Distribution Width 16.1 % (11.5-17.5); White Blood Count 7.4 K/mm3 (4.8-10.8)
[2024-06-28 06:54] LABS: Hemoglobin 10.8 g/dL (12.2-16.2)
[2024-06-28 07:52] VITALS: BP 107/65; PULSE 86; RESP 18; TEMP 36.9; O2SAT 95
[2024-06-28] MEDS: buPROPion HCl SR 150MG TAB 150 MG PO (09:10)
[2024-06-28] MEDS: guaiFENesin 600 MG TAB.ER.12H PO (09:11)
[2024-06-28] MEDS: GABAPENTIN 300MG CAPSULE 300 MG PO ×2 (09:11→12:23)
[2024-06-28] MEDS: FUROSEMIDE 40 MG TABLET PO (09:11)
[2024-06-28] MEDS: CITALOPRAM 20MG TABLET 20 MG PO (09:11)
[2024-06-28] MEDS: CARVEDILOL 3.125MG TABLET 3.125 MG PO (09:11)
[2024-06-28] MEDS: ENOXAPARIN 40MG/0.4ML SYRINGE 40 MG SUBCUT (09:11)
[2024-06-28] MEDS: IRBESARTAN 75MG TABLET 75 MG PO (09:11)
[2024-06-28] MEDS: DIVALPROEX 500MG (Delayed-Release) TABLET 500 MG PO ×2 (09:11→12:23)
[2024-06-28] MEDS: risperiDONE 0.5 MG TABLET PO (09:12)
[2024-06-28] MEDS: SPIRONOLACTONE 25MG TABLET 25 MG PO (09:12)
--- NOTE | 2024-06-28 10:35 | P.DS_ITS ---
General Admission date:: 06/27/24 HPI HPI HPI: Nestor Ardon is a 53-year-old female past medical history significant for COPD on 2 L nasal cannula, REYMUNDO, GERD, pulmonary hypertension, HTN, HFpEF, longstanding cognitive impairment, anxiety, seizure disorder who presents emergency room tonight with complaints of increasing shortness of breath. Patient tells me that she has had a worsening productive cough over the last couple of days. Reports yellow/green-colored sputum when she coughs it up. Denies any fever noted. Does states she feels a little more short of breath, also feels very congested. Describes a bit of lung pain when she breathes. Denies any nausea, vomiting, diarrhea. No chest pain noted. No focal neurodeficits noted. Denies tobacco use, alcohol use, illicit drug use. Is on her baseline 2 L of oxygen nasal cannula. Lab work in the ER showed an elevated white count of 10.9. BNP elevated at 1190. Urine appeared noninfectious. Chest x-ray showed some pleural effusions, basilar atelectasis versus early pneumonia. Lactic acid was 1.8, VBG was stable. With her productive cough and elevated white count, patient was covered for pneumonia with azithromycin and Rocephin while in the ER. She will be admitted to the hospitalist service for right lower lobe pneumonia. Hospital Course Hospital Course Hospital Course: 53-year-old female being admitted for right lower lobe pneumonia. #Right lower lobe pneumonia #Chronic hypoxic respiratory failure #COPD, stable - Clinically improved with ceftriaxone and azithromycin, Duonebs. WBC improved from 10.9 to 7.4. O2 at baseline 2 L. - Normal respiratory panel. - Mild COPD exacerbation with increased productive cough. - Discharged with levaquin and prednisone 40mg for 3 more days. #HFpEF #CAD #Pulmonary hypertension - Patient appears euvolemic. - Continue Lasix, Farxiga, spironolactone. - Last left and right heart cath showed a normal LVEF, mildly elevated LVEDP, severe pulmonary hypertension, normal coronary arteries in the main 3 vessels. #HTN - Continue irbesartan. #GERD - Continue PPI. #Cognitive disorder #Anxiety #Seizure disorder - Continue Klonopin, Neurontin, Depakote, Risperdal. Exam Data for Last 24 hours Vital signs and Labs for Last 24 Hours: Temp Pulse Resp BP Pulse Ox O2 Del Method O2 Flow Rate 98.4 F 86 18 107/65 L 95 Nasal Cannula 2 06/28/24 07:52 06/28/24 07:52 06/28/24 07:52 06/28/24 07:52 06/28/24 07:52 06/28/24 09:50 06/28/24 09:50 Laboratory Results - last 24 hr 06/27/24 18:47: WBC 10.9 H, RBC 4.81, Hgb 12.6, Hct 39.1, MCV 81.4, MCH 26.1 L, MCHC 32.1, RDW 16.0, Plt Count 355, MPV 7.4, Neut % (Auto) 81.3 H, Lymph % (Auto) 11.9, [place] % (Auto) 6.0, Eos % (Auto) 0.3, Baso % (Auto) 0.5, Neut # (Auto) 8.8 H, Lymph # (Auto) 1.3, [place] # (Auto) 0.7, Eos # (Auto) 0.0, Baso # (Auto) 0.1, Sodium 137, Potassium 4.2, Chloride 98, Carbon Dioxide 34 H, Anion Gap 9.2, BUN 22 H, Creatinine 0.60, Estimated Creat Clear 119, Estimated GFR 105, Est GFR ( Amer) 127, Glucose 99, Calcium 8.5, Magnesium 2.0, Total Bilirubin 0.5, AST 21, ALT 11 L, Alkaline Phosphatase 110, NT-Pro-B Natriuret Pep 1190 H, Total Protein 7.6, Albumin 3.6, Globulin 4.0 H, Albumin/Globulin Ratio 0.9 L 06/27/24 18:59: VBG pH 7.41, VBG pCO2 50.3, VBG pO2 39.2, VBG HCO3 31.5 H, VBG Total CO2 33.0 H, VBG O2 Saturation 75.5 H, VBG Base Excess 6.9 H, VBG Lactic Acid 1.8 06/27/24 19:34: Chlamy pneumoniae PCR Not detected, Adenovirus (PCR) Not detected, B. pertussis DNA (PCR) Not detected, Coronavirus OC43 (PCR) Not detected, Coronavirus HKU1 (PCR) Not detected, Coronavirus 229E (PCR) Not detected, SARS-CoV-2 (PCR) Not detected, Coronavirus NL63 (PCR) Not detected, Human Metapneumovir PCR Not detected, Influenza A (H1) PCR Not detected, Influ A (H1N1/09) PCR Not detected, Influenza A (H3) PCR Not detected, Influenza Type A (PCR) Not detected, Influenza Type B (PCR) Not detected, M. pneumoniae (PCR) Not detected, Parainfluenza 1 (PCR) Not detected, Parainfluenza 2 (PCR) Not detected, Parainfluenza 3 (PCR) Not detected, Parainfluenza 4 (PCR) Not detected , RSV (PCR) Not detected, Entero/Rhino (PCR) Not detected 06/28/24 05:39: WBC 7.4 D, RBC 4.24, Hgb 10.8 L D, Hct 35.3 L, MCV 83.3, MCH 25.4 L, MCHC 30.5 L, RDW 16.1, Plt Count 329, MPV 7.8, Neut % (Auto) 74.9, Lymph % (Auto) 16.9, [place] % (Auto) 7.6, Eos % (Auto) 0.1, Baso % (Auto) 0.5, Neut # (Auto) 5.6, Lymph # (Auto) 1.3, [place] # (Auto) 0.6, Eos # (Auto) 0.0, Baso # (Auto) 0.0, Sodium 141, Potassium 4.8, Chloride 104, Carbon Dioxide 33 H, Anion Gap 8.8, BUN 26 H, Creatinine 0.80 D, Estimated Creat Clear 90, Estimated GFR 75, Est GFR ( Amer) 91 D, Glucose 99, Calcium 8.2 L I & O for Last 24 hours: Intake & Output 06/25/24 06/26/24 06/27/24 06/28/24 23:59 23:59 23:59 23:59 Intake Total 885 / 885 Output Total 0 / 0 0 / 0 Balance 0 / 550 885 / 885 Weight 69.037 kg 69.763 kg Microbiology Reports for the Last 24 Hours: Microbiology 06/27/24 21:10 Sputum - Expectorated Sputum Gram Stain - Final Constitutional Constitutional: no acute distress Comments: Mil cognitive impairment. *Routine HEENT Exam Head: Present normocephalic Eye: Present EOMI and PERRL ENT: Present mucous membranes moist *Routine Neck Exam Neck: Present supple; Absent lymphadenopathy *Routine Respiratory Exam Respiratory: Present CTA bilaterally *Routine Cardiovascular Exam Cardiovascular: Present RRR *Routine Abdominal Exam Abdominal: Present soft and normoactive bowel sounds; Absent tenderness *Routine Extremities Exam Extremities: Absent cyanosis, clubbing or edema *Routine Skin Exam Skin: Present warm; Absent rash *Routine Neurological Exam Neurological: Present alert Results Data Completed and Pending Labs on day of discharge: Labs from last 24 hours 06/28/24 06/27/24 06/27/24 05:39 19:34 18:59 WBC 7.4 D RBC 4.24 Hgb 10.8 L D Hct 35.3 L MCV 83.3 MCH 25.4 L MCHC 30.5 L RDW 16.1 Plt Count 329 MPV 7.8 Neut % (Auto) 74.9 Lymph % (Auto) 16.9 [place] % (Auto) 7.6 Eos % (Auto) 0.1 Baso % (Auto) 0.5 Neut # (Auto) 5.6 Lymph # (Auto) 1.3 [place] # (Auto) 0.6 Eos # (Auto) 0.0 Baso # (Auto) 0.0 VBG pH 7.41 VBG pCO2 50.3 VBG pO2 39.2 VBG HCO3 31.5 H VBG Total CO2 33.0 H VBG O2 Saturation 75.5 H VBG Base Excess 6.9 H VBG Lactic Acid 1.8 Sodium 141 Potassium 4.8 Chloride 104 Carbon Dioxide 33 H Anion Gap 8.8 BUN 26 H Creatinine 0.80 D Estimated Creat Clear 90 Estimated GFR 75 Est GFR ( Amer) 91 D Glucose 99 Calcium 8.2 L Magnesium Total Bilirubin AST ALT Alkaline Phosphatase NT-Pro-B Natriuret Pep Total Protein Albumin Globulin Albumin/Globulin Ratio Chlamy pneumoniae PCR Not detected Adenovirus (PCR) Not detected B. pertussis DNA (PCR) Not detected Coronavirus OC43 (PCR) Not detected Coronavirus HKU1 (PCR) Not detected Coronavirus 229E (PCR) Not detected SARS-CoV-2 (PCR) Not detected Coronavirus NL63 (PCR) Not detected Human Metapneumovir PCR Not detected Influenza A (H1) PCR Not detected Influ A (H1N1/09) PCR Not detected Influenza A (H3) PCR Not detected Influenza Type A (PCR) Not detected Influenza Type B (PCR) Not detected M. pneumoniae (PCR) Not detected Parainfluenza 1 (PCR) Not detected Parainfluenza 2 (PCR) Not detected Parainfluenza 3 (PCR) Not detected Parainfluenza 4 (PCR) Not detected RSV (PCR) Not detected Entero/Rhino (PCR) Not detected 06/27/24 18:47 WBC 10.9 H RBC 4.81 Hgb 12.6 Hct 39.1 MCV 81.4 MCH 26.1 L MCHC 32.1 RDW 16.0 Plt Count 355 MPV 7.4 Neut % (Auto) 81.3 H Lymph % (Auto) 11.9 [place] % (Auto) 6.0 Eos % (Auto) 0.3 Baso % (Auto) 0.5 Neut # (Auto) 8.8 H Lymph # (Auto) 1.3 [place] # (Auto) 0.7 Eos # (Auto) 0.0 Baso # (Auto) 0.1 VBG pH VBG pCO2 VBG pO2 VBG HCO3 VBG Total CO2 VBG O2 Saturation VBG Base Excess VBG Lactic Acid Sodium 137 Potassium 4.2 Chloride 98 Carbon Dioxide 34 H Anion Gap 9.2 BUN 22 H Creatinine 0.60 Estimated Creat Clear 119 Estimated GFR 105 Est GFR ( Amer) 127 Glucose 99 Calcium 8.5 Magnesium 2.0 Total Bilirubin 0.5 AST 21 ALT 11 L Alkaline Phosphatase 110 NT-Pro-B Natriuret Pep 1190 H Total Protein 7.6 Albumin 3.6 Globulin 4.0 H Albumin/Globulin Ratio 0.9 L Chlamy pneumoniae PCR Adenovirus (PCR) B. pertussis DNA (PCR) Coronavirus OC43 (PCR) Coronavirus HKU1 (PCR) Coronavirus 229E (PCR) SARS-CoV-2 (PCR) Coronavirus NL63 (PCR) Human Metapneumovir PCR Influenza A (H1) PCR Influ A (H1N1/09) PCR Influenza A (H3) PCR Influenza Type A (PCR) Influenza Type B (PCR) M. pneumoniae (PCR) Parainfluenza 1 (PCR) Parainfluenza 2 (PCR) Parainfluenza 3 (PCR) Parainfluenza 4 (PCR) RSV (PCR) Entero/Rhino (PCR) DS: Diagnosis Discharge Diagnosis (1) Right lower lobe pneumonia: Status: Acute Code(s): J18.9 - Pneumonia, unspecified organism Qualifiers: Pneumonia type: due to unspecified organism Qualified Code(s): J18.9 - Pneumonia, unspecified organism (2) (HFpEF) heart failure with preserved ejection fraction: Status: Acute Code(s): I50.30 - Unspecified diastolic (congestive) heart failure Qualifiers: Heart failure chronicity: unspecified Qualified Code(s): I50.30 - Unspecified diastolic (congestive) heart failure (3) COPD (chronic obstructive pulmonary disease): Status: Acute Code(s): J44.9 - Chronic obstructive pulmonary disease, unspecified Qualifiers: COPD type: COPD with acute exacerbation Qualified Code(s): J44.1 - Chronic obstructive pulmonary disease with (acute) exacerbation (4) Pulmonary hypertension: Status: Acute Code(s): I27.20 - Pulmonary hypertension, unspecified Meds Home Medications and Allergies Home Medications ?Medication ?Instructions ?Recorded ?Confirmed ?Type empagliflozin 10 mg tablet 10 mg PO DAILY 90 days #90 tabs 02/23/24 06/27/24 Rx (Jardiance) escitalopram oxalate 10 mg tablet 10 mg PO DAILY #90 tabs 03/30/24 06/27/24 Rx (Lexapro) albuterol sulfate 90 mcg/actuation 1 inh inhalation Q4HP PRN 03/31/24 06/27/24 History aerosol inhaler (Ventolin HFA) Shortness Of Breath ipratropium 0.5 mg-albuterol 3 mg 3 ml inhalation QIDP PRN shortness 03/31/24 06/27/24 History (2.5 mg base)/3 mL nebulization of breath or wheezing soln omeprazole 20 mg capsule,delayed 20 mg PO DAILY 03/31/24 06/27/24 History release carvedilol 3.125 mg tablet 3.125 mg PO BID 30 days #60 tabs 04/01/24 06/27/24 Rx furosemide 40 mg tablet 40 mg PO BIDL 30 days #60 tabs 04/01/24 06/27/24 Rx rimegepant 75 mg disintegrating 75 mg PO ONCE PRN migraine 04/26/24 06/27/24 Rx tablet (Nurtec ODT) headache #10 tabs dextromethorphan 20 mg-quinidine 1 cap PO BID #60 caps 06/08/24 06/27/24 Rx 10 mg capsule (Nuedexta) bupropion HCl 300 mg 24 hr tablet, 300 mg PO DAILY #90 tabs 06/13/24 06/27/24 Rx extended release irbesartan 75 mg tablet 75 mg PO DAILY 30 days #30 tabs 06/13/24 06/27/24 Rx clonazepam 1 mg tablet 0.5 mg (1/2 x 1 mg) PO BIDP PRN 06/14/24 06/27/24 Rx Anxiety #30 tabs gabapentin 300 mg capsule 300 mg PO TID #90 caps 06/14/24 06/27/24 Rx risperidone 0.5 mg tablet 0.5 mg PO BID #60 tabs 06/19/24 06/27/24 Rx (Risperdal) spironolactone 25 mg tablet 25 mg PO BID #60 tabs 06/21/24 06/27/24 Rx levofloxacin 750 mg tablet 750 mg PO DAILY 4 days #4 tabs 06/28/24 Rx prednisone 20 mg tablet 20 mg PO DAILY 3 days #6 tabs 06/28/24 Rx divalproex 500 mg tablet,delayed 500 mg PO TID #90 tabs 07/12/24 Rx release azithromycin 500 mg tablet See Rx Instructions PO .COMPLEX #6 07/14/24 Rx tabs cefdinir 300 mg capsule 300 mg PO BID 10 days #20 caps 07/14/24 Rx prednisone 20 mg tablet 20 mg PO BID 7 days #14 tabs 07/14/24 Rx New Prescriptions to Start Prescriptions: levofloxacin Hung,Ector prednisone Hung,Ector Allergies Allergy/AdvReac Type Severity Reaction Status Date / Time nicotine AdvReac Rash Verified 06/21/24 09:26 Discharge Plan Disposition Patient Disposition: Home, Self-Care Condition: Good Follow up Plan Follow up with: Angeles Ling MD [Staff Physician] - Enter time for follow up (1 WEEK ) Prescriptions/Medication Reconciliation: New levofloxacin 750 mg tablet 750 mg PO DAILY 4 Days Qty: 4 0RF prednisone 20 mg tablet 20 mg PO DAILY 3 Days Qty: 6 0RF Continued spironolactone 25 mg tablet 25 mg PO BID Qty: 60 5RF risperidone [Risperdal] 0.5 mg tablet 0.5 mg PO BID Qty: 60 2RF Jardiance 10 mg tablet 10 mg PO DAILY 90 Days Qty: 90 2RF escitalopram oxalate [Lexapro] 10 mg tablet 10 mg PO DAILY Qty: 90 1RF Nurtec ODT 75 mg tablet,disintegrating 75 mg PO ONCE PRN (Reason: migraine headache) Qty: 10 12RF Nuedexta 20-10 mg capsule 1 cap PO BID Qty: 60 3RF bupropion HCl 300 mg tablet extended release 24 hr 300 mg PO DAILY Qty: 90 0RF irbesartan 75 mg tablet 75 mg PO DAILY 30 Days Qty: 30 4RF clonazepam 1 mg tablet 0.5 mg PO BIDP PRN (Reason: Anxiety) Qty: 30 0RF gabapentin 300 mg capsule 300 mg PO TID Qty: 90 0RF ipratropium-albuterol 0.5 mg-3 mg(2.5 mg base)/3 mL solution for nebulization 3 ml inhalation QIDP PRN (Reason: shortness of breath or wheezing) omeprazole 20 mg capsule,delayed release(DR/EC) 20 mg PO DAILY albuterol sulfate [Ventolin HFA] 90 mcg/actuation HFA aerosol inhaler 1 inh inhalation Q4HP PRN (Reason: Shortness Of Breath) carvedilol 3.125 mg Tablet 3.125 mg PO BID 30 Days Qty: 60 0RF furosemide 40 mg tablet 40 mg PO BIDL 30 Days Qty: 60 4RF No Action divalproex 500 mg tablet,delayed release (DR/EC) 500 mg PO TID Qty: 90 4RF cefdinir 300 mg capsule 300 mg PO BID 10 Days Qty: 20 0RF azithromycin 500 mg tablet See Rx Instructions .ROUTE .COMPLEX Qty: 6 0RF Rx Instructions: For 250 mg dose pack: take 500 mg today (day 1), then 250 mg for 4 days (days 2-5) prednisone 20 mg tablet 20 mg PO BID 7 Days Qty: 14 0RF Problem Reconciliation Problems Reviewed?: Yes Patient Discharge Instructions Patient Instructions: DI for Pneumonia -- Adult Print Language: Yakut Providers Primary Care Provider: Kb Ling Admit Provider: Ector Persaud Attending Provider: Ector Persaud
[2024-06-28] MEDS: predniSONE 20MG TAB 40 MG PO (11:12)
[2024-06-28] MEDS: levoFLOXacin 750 MG TABLET PO (12:20)
[2024-06-28] MEDS: SIMETHICONE 80MG CHEWABLE TABLET 80 MG PO (12:20)
--- NOTE | 2024-07-02 10:52 | SW/DCPLANNER ---
Spoke with patient on the phone and she stated she is doing well and that she is aware of her follow up appointment and that she was able to get her prescription filled and she has no concerns or questions at this time. Malena Walker
== END 2024-06-28 12:54 | disposition home or self-care (01) ==
LOC: ER 20:01 → 2ND 22:07
PROVIDERS: Nurse Practitioner Acute Care; Physician Assistant; Admitting Provider Student in an Organized Health Care Education/Training Program; Emergency Provider Emergency Medicine; PCP Psychiatry & Neurology Sleep Medicine; Visit Provider Student in an Organized Health Care Education/Training Program
DX: J18.9 Pneumonia, unspecified organism (principal); J44.1 Chronic obstructive pulmonary disease with (acute) exacerbation; Z99.81 Dependence on supplemental oxygen; I27.20 Pulmonary hypertension, unspecified; I50.30 Unspecified diastolic (congestive) heart failure; J90 Pleural effusion, not elsewhere classified; F79 Unspecified intellectual disabilities; G40.909 Epilepsy, unspecified, not intractable, without status epilepticus; Z79.899 Other long term (current) drug therapy; I11.0 Hypertensive heart disease with heart failure; Z86.16 Personal history of COVID-19; J96.11 Chronic respiratory failure with hypoxia
CPT/HCPCS: 36415; 71045; 80048; 80053; 82803; 83735; 83880; 85025; 87040; 87070; 87205; 87633; 93005; 94640; 99285; G0378; J0456; J0696; J1100; J1650; J1885; J7050; J7620

== ENCOUNTER 2024-07-12 09:13 | Outpatient (CLI) | payer MEDICAID, SELFPAY ==
--- NOTE | 2024-07-12 09:14 | CT_ITS ---
FINAL REPORT CLINICAL HISTORY: rule out PAD due to claudication and slightly abno COMPARISON: CT of the abdomen and pelvis 03/23/2023 FINDINGS: Thin section axial CT images of the abdomen, pelvis and lower extremities were obtained with contrast. Multiplanar reformatted images were also obtained and reviewed. ABDOMEN AND PELVIS: There is no abdominal aortic aneurysm or dissection. The celiac axis and proximal superior mesenteric artery are unremarkable. There is mild calcified plaque present in the proximal left renal artery, which is suboptimally visualized, however mild stenosis appears to be present. The right renal artery is unremarkable in appearance. The inferior mesenteric artery is patent. There is no significant stenosis of the right common iliac artery or external right iliac artery. There is no significant stenosis of the left common iliac artery or external left iliac artery. The internal iliac arteries are patent. RIGHT LOWER EXTREMITY: There is no significant stenosis of the right common femoral or superficial femoral arteries. The right deep femoral artery is patent. The right popliteal artery is patent. There is three-vessel runoff to the distal lower leg. LEFT LOWER EXTREMITY: There is no significant stenosis of the left common femoral or superficial femoral arteries. The left deep femoral artery is patent. The left popliteal artery is patent. There is three-vessel runoff to the distal lower leg. OTHER FINDINGS: Small bilateral effusions are present, as well as bibasilar atelectasis. The gallbladder has been surgically resected. Postoperative changes are noted in the anterior abdominal and pelvic saenz. There is a moderate to large amount of stool present in the colon. IMPRESSION: There is mild calcified plaque at the origin of the proximal left renal artery, with suboptimal visualization but appears to be produce mild stenosis. No other significant vascular abnormalities are identified. There is three-vessel runoff to the ankles. Small bilateral pleural effusions are present with bibasilar atelectasis. Reviewed, Interpreted and Dictated by Tone Hsu III, MD Transcribed by Shelia Walton Authenticated and [facility]
[2024-07-12] MEDS: 0.9 % SODIUM CHLORIDE 50 ML VIAL 80 ML IV (10:19)
[2024-07-12] MEDS: IOPAMIDOL-370 (76%);100ML BOTTLE 120 ML IV (10:19)
[2024-07-12] MEDS: SODIUM CHLORIDE 0.9% 10ML SYR (RAD ONLY) 10 ML IV (10:19)
== END 2024-07-12 23:59 | disposition home or self-care (01) ==
LOC: RAD 09:14
PROVIDERS: PCP Psychiatry & Neurology Sleep Medicine; Visit Provider Physician Assistant
DX: I27.20 Pulmonary hypertension, unspecified (principal); I73.9 Peripheral vascular disease, unspecified
CPT/HCPCS: 75635; Q9967

== ENCOUNTER 2024-07-14 14:10 | Emergency (ER) | payer MEDICAID, SELFPAY ==
[2024-07-14] VITALS (8 sets, daily range): BP systolic 100–182; BP diastolic 66–96; PULSE 90–106; RESP 20–30; TEMP 37.2–37.3; O2SAT 84–95; BMI 28.1
--- NOTE | 2024-07-14 14:41 | PC.NURSE ---
PT 84% ON ROOM AIR, PLACED ON BASELINE HOME O2 AT 2L/NC. SATS 95%
--- NOTE | 2024-07-14 14:43 | XR_ITS ---
PROCEDURE INFORMATION: Exam: XR Chest Exam date and time: 07/14/2024 3:06 PM Age: 53 years old Clinical indication: Shortness of breath TECHNIQUE: Imaging protocol: Radiologic exam of the chest. Views: 2 views. COMPARISON: CR XR CHEST PORTABLE 06/27/2024 7:19 PM FINDINGS: Lungs: Opacities in the right base may represent atelectasis or pneumonia.. Stable calcified granuloma in the left midlung Pleural spaces: Mild to moderate right pleural effusion. Small left pleural effusion. Heart/Mediastinum: Unremarkable. No cardiomegaly. Bones/joints: Degenerative changes in the glenohumeral joints IMPRESSION: 1. Opacities in the right base may represent atelectasis or pneumonia.. 2. Mild to moderate right pleural effusion. Small left pleural effusion.
--- NOTE | 2024-07-14 14:43 | ECG_ITS ---
APPROVED REPORT Exam: Resting ECG HR:102 bpm ECG Measurements Heart Rate [address] 138 P 73 QRSd 96 QRS 108 QT 363 T 56 QTc 421 Conclusion SINUS TACHYCARDIA RIGHT AXIS DEVIATION [QRS AXIS > 100] ABNORMAL ECG Electronically signed by : TRAM WEBB, 07/14/2024 16:07:15
[2024-07-14 15:00] LABS: Lactate Venous 1.8 mmol/L (0.4-2.0); VBG Base Excess 8.9 mmol/L (-2.4-2.3); VBG HCO3 33.8 mmol/L (23-30); VBG PH 7.39 mmol/L (7.31-7.41); VBG PO2 102.9 mmol/L (28-40); VBG Total CO2 35.6 mmol/L (23-27)
[2024-07-14 15:00] LABS: Adenovirus,PCR Not Detected (NotDetected); Bordetella Pertussis Not Detected (NotDetected); Chlamydophila Pneumoniae, PCR Not Detected (NotDetected); Coronavirus 19, PCR Not Detected (NotDetected); Coronavirus 229E Not Detected (NotDetected); Coronavirus NL63 Not Detected (NotDetected); Coronavirus OC43 Not Detected (NotDetected); Coronovirus HKU1,PCR Not Detected (NotDetected); Human Metapneumovirus Not Detected (NotDetected); Influenza A, PCR Not Detected (NotDetected); Influenza AH1, 2009 Not Detected (NotDetected); Influenza AH1, PCR Not Detected (NotDetected); Influenza AH3,PCR Not Detected (NotDetected); Influenza B, PCR Not Detected (NotDetected); Mycoplasma Pneumoniae, PCR Not Detected (NotDetected); Parainfluenza 1, PCR Not Detected (NotDetected); Parainfluenza 2, PCR Not Detected (NotDetected); Parainfluenza 3, PCR Not Detected (NotDetected); Parainfluenza 4, PCR Not Detected (NotDetected); Respiratory Syncytial Virus Not Detected (NotDetected); Rhinovirus/Enterovirus Not Detected (NotDetected)
[2024-07-14 15:03] LABS: Basophils # 0.1 K/mm3 (0-0.2); Basophils % 0.6 % (0.1-2.0); Eosinophils # 0.1 K/mm3 (0.0-0.4); Eosinophils % 0.5 % (0.1-12.0); Hematocrit 39.6 % (37.0-47.0); Hemoglobin 12.2 g/dL (12.2-16.2); Lymphocytes # 1.9 K/mm3 (0.7-4.5); Lymphocytes % 15.5 % (10-50); Mean Corpuscular HGB Conc 30.8 g/dL (31.8-35.4); Mean Corpuscular Hemoglobin 25.3 pg (27.0-31.2); Mean Corpuscular Volume 82.1 fl (81-99); Mean Platelet Volume 7.8 fl (7.4-10.4); Monocytes # 0.6 K/mm3 (0.1-1.0); Monocytes % 5.1 % (1.7-9.3); Neutrophils # 9.6 K/mm3 (1.8-7.8); Neutrophils % 78.3 % (37.0-80.0); Platelet Count 405 K/mm3 (142-424); Red Blood Count 4.82 M/mm3 (4.20-5.40); Red Cell Distribution Width 16.1 % (11.5-17.5); White Blood Count 12.2 K/mm3 (4.8-10.8)
[2024-07-14 15:03] LABS: VBG PCO2 57.2 mmol/L (35-51)
[2024-07-14 15:11] LABS: Albumin Level 3.8 g/dl (3.5-5.0); Chloride 96 mmol/L (98-107); Potassium 3.7 mmoL/L (3.5-5.1); Sodium 136 mmol/L (136-145)
[2024-07-14 15:13] LABS: Blood Urea Nitrogen 18 mg/dl (7-17); Creatinine Clearance Estimated 90 mL/min (50-200); Estimated Glomerular Filt Rate 75 ml/min (>60); GFR (African American) 91 ML/MIN (>60); Lipase 27 U/L (23-300)
[2024-07-14 15:14] LABS: Alanine Aminotransferase 17 U/L (12-78); Albumin/Globulin Ratio 1.1 (1.1-1.8); Alkaline Phosphatase 122 U/L (38-126); Anion Gap 8.7 mEq/L (5-15); Aspartate Amino Transferase 25 U/L (14-36); Bilirubin,Total 0.4 mg/dl (0.2-1.3); Calcium 8.2 mg/dl (8.4-10.2); Carbon Dioxide 35 mmol/L (22.0-30.0); Globulin 3.6 g/dL (1.3-3.2); Glucose 106 mg/dl (74-100); Total Protein,Serum 7.4 g/dl (6.3-8.2)
[2024-07-14 15:23] LABS: Lactic Acid 1.2 mmol/L (0.7-2.1)
--- NOTE | 2024-07-14 15:24 | ED_ITS ---
<Statement entered by Daniela Armenta DO - 07/14/24 15:43> I was consulted by the ZACH, and we discussed the complexity of the problems being addressed. I approved the treatment and management plan for this patient's care in the emergency department, thus performing a substantive portion of the medical decision making. I signed out care of patient to Dr. Mohr and Tracey Luna at 1500 Daniela Armenta DO Discharge Plan Disposition Patient Disposition: Home, Self-Care Condition: Good Prescriptions Prescriptions: New cefdinir 300 mg capsule 300 mg PO BID 10 Days Qty: 20 0RF azithromycin 500 mg tablet See Rx Instructions .ROUTE .COMPLEX Qty: 6 0RF Rx Instructions: For 250 mg dose pack: take 500 mg today (day 1), then 250 mg for 4 days (days 2-5) prednisone 20 mg tablet 20 mg PO BID 7 Days Qty: 14 0RF No Action spironolactone 25 mg tablet 25 mg PO BID Qty: 60 5RF risperidone [Risperdal] 0.5 mg tablet 0.5 mg PO BID Qty: 60 2RF Jardiance 10 mg tablet 10 mg PO DAILY 90 Days Qty: 90 2RF escitalopram oxalate [Lexapro] 10 mg tablet 10 mg PO DAILY Qty: 90 1RF Nurtec ODT 75 mg tablet,disintegrating 75 mg PO ONCE PRN (Reason: migraine headache) Qty: 10 12RF Nuedexta 20-10 mg capsule 1 cap PO BID Qty: 60 3RF bupropion HCl 300 mg tablet extended release 24 hr 300 mg PO DAILY Qty: 90 0RF irbesartan 75 mg tablet 75 mg PO DAILY 30 Days Qty: 30 4RF clonazepam 1 mg tablet 0.5 mg PO BIDP PRN (Reason: Anxiety) Qty: 30 0RF gabapentin 300 mg capsule 300 mg PO TID Qty: 90 0RF divalproex 500 mg tablet,delayed release (DR/EC) 500 mg PO TID Qty: 90 4RF levofloxacin 750 mg tablet 750 mg PO DAILY 4 Days Qty: 4 0RF prednisone 20 mg tablet 20 mg PO DAILY 3 Days Qty: 6 0RF ipratropium-albuterol 0.5 mg-3 mg(2.5 mg base)/3 mL solution for nebulization 3 ml inhalation QIDP PRN (Reason: shortness of breath or wheezing) omeprazole 20 mg capsule,delayed release(DR/EC) 20 mg PO DAILY albuterol sulfate [Ventolin HFA] 90 mcg/actuation HFA aerosol inhaler 1 inh inhalation Q4HP PRN (Reason: Shortness Of Breath) carvedilol 3.125 mg Tablet 3.125 mg PO BID 30 Days Qty: 60 0RF furosemide 40 mg tablet 40 mg PO BIDL 30 Days Qty: 60 4RF Referrals Follow up/Referrals: Angeles Ling MD [Primary Care Provider] - See instructions Activity Restrictions/Add. Instructions Additional Instructions/Restrictions: Increase fluids and rest. Take antibiotics as directed. Wear your oxygen. Please follow-up with PCP Tuesday or Tuesday. If any further problems or concerns please return to the ED. Clinical Impressions Clinical Impression: Community acquired pneumonia COPD (chronic obstructive pulmonary disease) Qualifiers: COPD type: COPD with acute exacerbation Qualified Code(s): J44.1 - Chronic obstructive pulmonary disease with (acute) exacerbation Instructions Patient Instructions: Pneumonia--Adult, DI for Shortness of Breath Print Language Print Language: Tamazight Discharge ED Provider: Maximus Mohr Adult HPI <Tracey Luna (ED), [employer] - Last Filed: 07/14/24 18:25> General Chief complaint: Shortness of Breath/Dyspnea Stated complaint: wheezing, cough, lung pain Time Seen by Provider: 07/14/24 14:29 Mode of Arrival: Wheelchair Source of Information: Patient and Relative Limitations: No Limitations Description of Symptoms (Recalled from ER Triage Doc. by RN): PT BROUGHT BY FAMILY, REPORTS COUGH AND SHORTNESS OF BREATH THAT STARTED LAST NIGHT. PT WEARS HOME O2 AT 2L/NC BUT RAN OUT SOMETIME THIS AM History of Present Illness HPI narrative: This is a 53-year-old female who presents to the ED for shortness of air that started last night. She started with a cough, productive sputum and wheezing since last night. She did run out of oxygen last night causing her to arrive to the ER with an O2 of 84% on room air. Once she was back on her normal 2 to 3 L here in the ED she rebounded to 95%. Patient denies any abdominal pain, no nausea, vomiting or diarrhea. Denies any other problems or concerns today. Family member that is in the room with her says that she did run out of oxygen but they are getting more today. Related Data Home Medications ?Medication ?Instructions ?Recorded ?Confirmed albuterol sulfate 90 mcg/actuation 1 inh inhalation Q4HP PRN 03/31/24 06/27/24 aerosol inhaler (Ventolin HFA) Shortness Of Breath ipratropium 0.5 mg-albuterol 3 mg 3 ml inhalation QIDP PRN shortness 03/31/24 06/27/24 (2.5 mg base)/3 mL nebulization of breath or wheezing soln omeprazole 20 mg capsule,delayed 20 mg PO DAILY 03/31/24 06/27/24 release Previous Rx's ?Medication ?Instructions ?Recorded empagliflozin 10 mg tablet 10 mg PO DAILY 90 days #90 tabs 02/23/24 (Jardiance) escitalopram oxalate 10 mg tablet 10 mg PO DAILY #90 tabs 03/30/24 (Lexapro) carvedilol 3.125 mg tablet 3.125 mg PO BID 30 days #60 tabs 04/01/24 furosemide 40 mg tablet 40 mg PO BIDL 30 days #60 tabs 04/01/24 rimegepant 75 mg disintegrating 75 mg PO ONCE PRN migraine 04/26/24 tablet (Nurtec ODT) headache #10 tabs dextromethorphan 20 mg-quinidine 1 cap PO BID #60 caps 06/08/24 10 mg capsule (Nuedexta) bupropion HCl 300 mg 24 hr tablet, 300 mg PO DAILY #90 tabs 06/13/24 extended release irbesartan 75 mg tablet 75 mg PO DAILY 30 days #30 tabs 06/13/24 clonazepam 1 mg tablet 0.5 mg (1/2 x 1 mg) PO BIDP PRN 06/14/24 Anxiety #30 tabs gabapentin 300 mg capsule 300 mg PO TID #90 caps 06/14/24 risperidone 0.5 mg tablet 0.5 mg PO BID #60 tabs 06/19/24 (Risperdal) spironolactone 25 mg tablet 25 mg PO BID #60 tabs 06/21/24 levofloxacin 750 mg tablet 750 mg PO DAILY 4 days #4 tabs 06/28/24 prednisone 20 mg tablet 20 mg PO DAILY 3 days #6 tabs 06/28/24 divalproex 500 mg tablet,delayed 500 mg PO TID #90 tabs 07/12/24 release azithromycin 500 mg tablet See Rx Instructions PO .COMPLEX #6 07/14/24 tabs cefdinir 300 mg capsule 300 mg PO BID 10 days #20 caps 07/14/24 prednisone 20 mg tablet 20 mg PO BID 7 days #14 tabs 07/14/24 Allergies Allergy/AdvReac Type Severity Reaction Status Date / Time nicotine AdvReac Rash Verified 06/21/24 09:26 PFS <Tracey Luna (ED), [employer] - Last Filed: 07/14/24 18:25> PFS Disclaimer: The information contained in this section may have been updated after the patient was seen, as this information can be updated by other users. Medical History Diminished pulses in lower extremity Leg numbness Chronic asthmatic bronchitis Closed nondisplaced fracture of fifth metatarsal bone of left foot with routine healing Avulsion fracture Respiratory failure with hypercapnia Right lower lobe pneumonia Encounter for general medical examination Lower GI bleeding Abnormal laboratory test result Asthma exacerbation in COPD Acute chest wall pain Pneumonia UTI (urinary tract infection) Recurrent pneumonia Acute viral syndrome Abnormal electrocardiogram [ECG] [EKG] Cough Diarrhea REYMUNDO (obstructive sleep apnea) (HFpEF) heart failure with preserved ejection fraction Oxygen dependent Neuropathy Smoking greater than 30 pack years Mediastinal lymphadenopathy Pulmonary embolism Dyspnea on exertion Acute diastolic CHF (congestive heart failure) Pulmonary hypertension Hilar lymphadenopathy Pleural effusion on right Pneumonia Anxiety disorder Seizure disorder Mood disorder Incontinence INCONTINENCE AT TIMES History of COVID-19 Asthma History of gastroesophageal reflux (GERD) Allergies Depression Anxiety Urinary tract infection Migraine COPD (chronic obstructive pulmonary disease) Hyperlipidemia Hypertension Surgical History History of colonoscopy History of breast biopsy History of hysterectomy History of cholecystectomy Family History Father Lung cancer Sister Ovarian cancer Kidney disease Lung cancer Mother Kidney disease Other Family history of diabetes mellitus type II Family history of hyperlipidemia Family history of hypertension Family history of migraine headaches Family history of myocardial infarction Social History Smoking Status: Current every day smoker tobacco type: cigarettes packs per day: 1 alcohol intake: never counseling provided: none substance use type: denies use current occupational status: disabled Travel in the last 8 weeks: None caregiver/support person: Yes household members: caregiver housing: assisted living facility lives independently: No do you feel safe at home: Yes victim of physical abuse: No victim of emotional abuse: No victim of sexual abuse: No would you like helpful sources: No Have you lived/traveled outside [place] in past 30 days?: No Contact w/someone who lives/traveled outside [place] past 30 days?: No Exposure to someone with infectious disease in past 14 days?: No Do you have a fever (greater than 100.4 F or 38 C)?: No Have you tested positive for COVID-19: No Exposed to someone with COVID-19 in past 14 days?: No Do you have a sore throat?: No Do you have a cough?: Yes Do you have any weakness?: No Do you have any diarrhea?: No Are you experiencing any unusual bleeding?: No Do you have any muscle aches/pain?: No Do you have any abdominal pain?: No Are you experiencing loss of taste or smell?: No Other Medical History Have you received the Flu Vaccine for this season: No Have you received the Pneumonia Vaccine: No <Daniela Armenta, DO - Last Filed: 07/14/24 16:04> ROS Obtained: Yes All systems reviewed & no additional complaints except as documented Physical Exam <Tracey Luna (ED), [employer] - Last Filed: 07/14/24 18:25> General General appearance: alert Head Head exam: atraumatic and normocephalic Eye Eye exam: Present normal appearance, PERRL and EOMI ENT ENT exam: Present normal exam, normal oropharynx and mucous membranes moist Neck Neck exam: Present normal inspection, full ROM and trachea midline Respiratory Respiratory exam: Present wheezes Cardiovascular Cardiovascular exam: Present regular rate, normal rhythm, normal heart sounds, +S1 and +S2 Abdominal Exam Abdominal exam: Present soft and normal bowel sounds Extremities Exam Extremities exam: Present normal inspection, full ROM and normal capillary refill Neurological Exam Neurological exam: Present alert and oriented X3 Skin Skin exam: Present warm, dry and intact Medical Decision Making <Tracey Luna (ED), [employer] - Last Filed: 07/14/24 18:25> Medical Records Screening: Per USPSTF and CDC recommendations, given the prevalence of disease in our region, it is our hospital?s policy to screen for HIV and viral Hepatitis for all patients aged 18 and over and those with ongoing risk factors. Vlad Inquiry Vlad was queried for this patient: No Vital Signs: 07/14/24 14:11 07/14/24 15:00 07/14/24 15:52 Temperature 99.1 F Temperature Source Oral Pulse Rate 96 H 92 H Pulse Rate [Radial] 106 H Respiratory Rate 20 30 H 22 Blood Pressure 155/82 H 118/66 Blood Pressure [Right Arm] 182/96 H Blood Pressure Mean [Right Arm] 124 Blood Pressure Source [Right Arm] Automatic Cuff Blood Pressure Position [Right Arm] Sitting 02 Sat by Pulse Oximetry 84 L 94 L 93 L Oxygen Delivery Method Room Air Nasal Cannula Nasal Cannula 07/14/24 16:01 07/14/24 16:30 07/14/24 17:00 Temperature Temperature Source Pulse Rate 92 H 90 Pulse Rate [Radial] Respiratory Rate 28 H 26 H 29 H Blood Pressure 120/66 121/71 124/72 Blood Pressure [Right Arm] Blood Pressure Mean [Right Arm] Blood Pressure Source [Right Arm] Blood Pressure Position [Right Arm] 02 Sat by Pulse Oximetry 93 L 95 Oxygen Delivery Method Nasal Cannula Nasal Cannula Nasal Cannula 07/14/24 17:30 07/14/24 18:04 Temperature 98.9 F Temperature Source Oral Pulse Rate 98 H 93 H Pulse Rate [Radial] Respiratory Rate 27 H 22 Blood Pressure 126/80 100/72 L Blood Pressure [Right Arm] Blood Pressure Mean [Right Arm] Blood Pressure Source [Right Arm] Blood Pressure Position [Right Arm] 02 Sat by Pulse Oximetry 91 L Oxygen Delivery Method Nasal Cannula Nasal Cannula Lab Data Lab Results 07/14/24 14:46: VBG pH 7.39, VBG pCO2 57.2 H, VBG pO2 102.9 H, VBG HCO3 33.8 H, VBG Total CO2 35.6 H, VBG O2 Saturation 98.0 H, VBG Base Excess 8.9 H, VBG Lactic Acid 1.8 07/14/24 14:49: WBC 12.2 H, RBC 4.82, Hgb 12.2, Hct 39.6, MCV 82.1, MCH 25.3 L, MCHC 30.8 L, RDW 16.1, Plt Count 405, MPV 7.8, Neut % (Auto) 78.3, Lymph % (Auto) 15.5, [place] % (Auto) 5.1, Eos % (Auto) 0.5, Baso % (Auto) 0.6, Neut # (Auto) 9.6 H, Lymph # (Auto) 1.9, [place] # (Auto) 0.6, Eos # (Auto) 0.1, Baso # (Auto) 0.1, Sodium 136, Potassium 3.7, Chloride 96 L, Carbon Dioxide 35 H, Anion Gap 8.7, BUN 18 H, Creatinine 0.80, Estimated Creat Clear 90, Estimated GFR 75, Est GFR ( Amer) 91, Glucose 106 H, Lactate 1.2, Calcium 8.2 L, Total Bilirubin 0.4, AST 25, ALT 17, Alkaline Phosphatase 122, Total Protein 7.4, Albumin 3.8, Globulin 3.6 H, Albumin/Globulin Ratio 1.1, Lipase 27, Chlamy pneumoniae PCR Not detected, Adenovirus (PCR) Not detected, B. pertussis DNA (PCR) Not detected, Coronavirus OC43 (PCR) Not detected, Coronavirus HKU1 (PCR) Not detected, Coronavirus 229E (PCR) Not detected, SARS-CoV-2 (PCR) Not detected, Coronavirus NL63 (PCR) Not detected, Human Metapneumovir PCR Not detected, Influenza A (H1) PCR Not detected, Influ A (H1N1/09) PCR Not detected, Influenza A (H3) PCR Not detected, Influenza Type A (PCR) Not detected, Influenza Type B (PCR) Not detected, M. pneumoniae (PCR) Not detected, Parainfluenza 1 (PCR) Not detected, Parainfluenza 2 (PCR) Not detected, Parainfluenza 3 (PCR) Not detected, Parainfluenza 4 (PCR) Not detected, RSV (PCR) Not detected, Entero/Rhino (PCR) Not detected 07/14/24 16:26: Urine Color Dark yellow, Urine Appearance Clear, Urine pH 6.5, Ur Specific Zahl 1.020, Urine Protein Negative, Urine Glucose (UA) 3+, Urine Ketones Negative, Urine Blood Negative, Urine Nitrate Negative, Urine Bilirubin Negative, Urine Urobilinogen 0.2, Ur Leukocyte Esterase Negative, Urine RBC None, Urine WBC 3-5, Ur Squamous Epith Cells 3-5, Urine Bacteria Trace 07/14/24 14:49 07/14/24 14:49 Orders (Tests/Meds): ED MEDICATIONS Discontinued Medications Generic Name Dose Route Start Last Admin Trade Name Louieq PRN Reason Stop Dose Admin Albuterol/Ipratropium 3 ml 07/14/24 14:44 07/14/24 15:35 Ipratropium/Albuterol 3 Ml Neb IH 07/14/24 14:45 3 ml ONCE ONE Administration Ceftriaxone Sodium 2 gm/ 100 mls @ 200 mls/hr 07/14/24 16:00 07/14/24 16:10 Sodium Chloride IV 07/24/24 15:59 200 mls/hr Q24H SHARRI Administration Azithromycin 500 mg/ Sodium 250 mls @ 250 mls/hr 07/14/24 16:00 07/14/24 16:46 Chloride IV 07/24/24 15:59 250 mls/hr Q24H SHARRI Administration Methylprednisolone Sodium Succinate 125 mg 07/14/24 14:44 07/14/24 15:35 Methylprednisolone Sod Succ 125mg Vial IV 07/14/24 14:45 125 mg ONCE ONE Administration ORDERS Category Date Time Status XR chest 2V Stat Exams 07/14/24 14:43 Completed Complete Blood Count Auto Diff Stat Lab 07/14/24 14:49 Completed Comprehensive Metabolic Panel Stat Lab 07/14/24 14:49 Completed Full Resp Panel w/COVID ([facility]) Routine Lab 07/14/24 14:49 Completed Lactic Acid Stat Lab 07/14/24 14:49 Completed Lipase Stat Lab 07/14/24 14:49 Completed Urinalysis and Microscopic Stat Lab 07/14/24 16:26 Completed Blood Culture Stat Micro 07/14/24 15:30 Received VBG [Venous Blood Gas] Stat RT 07/14/24 15:41 Ordered Venous Blood Gas Stat RT 07/14/24 14:46 Completed Medical Decision Narrative: Insert review patient is a 53-year-old female presenting to the emergency department for evaluation of shortness of breath that started last night with cough and wheezing. She has occasional productive sputum as well. She did run out of oxygen this morning and came into the ER setting 84%. She was placed on her normal home O2 and rebounded to 95%.. Patient is hemodynamically stable once placed on home O2 of 2 L and nontoxic-appearing upon arrival, afebrile]. Differential diagnosis includes pneumonia, COPD exacerbation, viral illness among others. Workup will be conducted with hematologic labs, specific imaging including chest x-ray, provocative tests. Initial inventions include crystalloid bolus, antibiotics for right sided pneumonia. Initial workup reviewed by me hematologic labs are remarkable for nothing acute. Imaging informally interpreted by me and remarkable for right-sided pneumonia. Formal imaging read remarkable for right-sided opacities versus right-sided pneumonia. Upon repeat evaluation patient's pain is improved. Her O2 sat is 95% on 2 L. She looks better and is sitting up eating. She has been informed that she does have right-sided pneumonia that she will be given IV antibiotics here as well as sent home with IV antibiotics with steroids. Patient family member states that she does have home O2 that they refilled it today. Patient will follow-up with her primary care physician the beginning of next week. We called [employer] and attempt to get a portable tank as she does not have a portable but she has a home O2 at home. Patient refused to allow us to get this. She wanted to leave at this time. Patient said she would roll the window down she did not want to wait any longer to go home. <Daniela Armenta, DO - Last Filed: 07/14/24 16:04> Vlad Inquiry Pt receiving controlled substance: No Vital Signs: 07/14/24 14:11 07/14/24 15:00 07/14/24 15:52 Temperature 99.1 F Temperature Source Oral Pulse Rate 96 H 92 H Pulse Rate [Radial] 106 H Respiratory Rate 20 30 H 22 Blood Pressure 155/82 H 118/66 Blood Pressure [Right Arm] 182/96 H Blood Pressure Mean [Right Arm] 124 Blood Pressure Source [Right Arm] Automatic Cuff Blood Pressure Position [Right Arm] Sitting 02 Sat by Pulse Oximetry 84 L 94 L 93 L Oxygen Delivery Method Room Air Nasal Cannula Nasal Cannula 07/14/24 16:01 07/14/24 16:30 07/14/24 17:00 Temperature Temperature Source Pulse Rate 92 H 90 Pulse Rate [Radial] Respiratory Rate 28 H 26 H 29 H Blood Pressure 120/66 121/71 124/72 Blood Pressure [Right Arm] Blood Pressure Mean [Right Arm] Blood Pressure Source [Right Arm] Blood Pressure Position [Right Arm] 02 Sat by Pulse Oximetry 93 L 95 Oxygen Delivery Method Nasal Cannula Nasal Cannula Nasal Cannula 07/14/24 17:30 07/14/24 18:04 Temperature 98.9 F Temperature Source Oral Pulse Rate 98 H 93 H Pulse Rate [Radial] Respiratory Rate 27 H 22 Blood Pressure 126/80 100/72 L Blood Pressure [Right Arm] Blood Pressure Mean [Right Arm] Blood Pressure Source [Right Arm] Blood Pressure Position [Right Arm] 02 Sat by Pulse Oximetry 91 L Oxygen Delivery Method Nasal Cannula Nasal Cannula Lab Data Lab Results 07/14/24 14:46: VBG pH 7.39, VBG pCO2 57.2 H, VBG pO2 102.9 H, VBG HCO3 33.8 H, VBG Total CO2 35.6 H, VBG O2 Saturation 98.0 H, VBG Base Excess 8.9 H, VBG Lactic Acid 1.8 07/14/24 14:49: WBC 12.2 H, RBC 4.82, Hgb 12.2, Hct 39.6, MCV 82.1, MCH 25.3 L, MCHC 30.8 L, RDW 16.1, Plt Count 405, MPV 7.8, Neut % (Auto) 78.3, Lymph % (Auto) 15.5, [place] % (Auto) 5.1, Eos % (Auto) 0.5, Baso % (Auto) 0.6, Neut # (Auto) 9.6 H, Lymph # (Auto) 1.9, [place] # (Auto) 0.6, Eos # (Auto) 0.1, Baso # (Auto) 0.1, Sodium 136, Potassium 3.7, Chloride 96 L, Carbon Dioxide 35 H, Anion Gap 8.7, BUN 18 H, Creatinine 0.80, Estimated Creat Clear 90, Estimated GFR 75, Est GFR ( Amer) 91, Glucose 106 H, Lactate 1.2, Calcium 8.2 L, Total Bilirubin 0.4, AST 25, ALT 17, Alkaline Phosphatase 122, Total Protein 7.4, Albumin 3.8, Globulin 3.6 H, Albumin/Globulin Ratio 1.1, Lipase 27, Chlamy pneumoniae PCR Not detected, Adenovirus (PCR) Not detected, B. pertussis DNA (PCR) Not detected, Coronavirus OC43 (PCR) Not detected, Coronavirus HKU1 (PCR) Not detected, Coronavirus 229E (PCR) Not detected, SARS-CoV-2 (PCR) Not detected, Coronavirus NL63 (PCR) Not detected, Human Metapneumovir PCR Not detected, Influenza A (H1) PCR Not detected, Influ A (H1N1/09) PCR Not detected, Influenza A (H3) PCR Not detected, Influenza Type A (PCR) Not detected, Influenza Type B (PCR) Not detected, M. pneumoniae (PCR) Not detected, Parainfluenza 1 (PCR) Not detected, Parainfluenza 2 (PCR) Not detected, Parainfluenza 3 (PCR) Not detected, Parainfluenza 4 (PCR) Not detected, RSV (PCR) Not detected, Entero/Rhino (PCR) Not detected 07/14/24 16:26: Urine Color Dark yellow, Urine Appearance Clear, Urine pH 6.5, Ur Specific Zahl 1.020, Urine Protein Negative, Urine Glucose (UA) 3+, Urine Ketones Negative, Urine Blood Negative, Urine Nitrate Negative, Urine Bilirubin Negative, Urine Urobilinogen 0.2, Ur Leukocyte Esterase Negative, Urine RBC None, Urine WBC 3-5, Ur Squamous Epith Cells 3-5, Urine Bacteria Trace Orders (Tests/Meds): ED MEDICATIONS Discontinued Medications Generic Name Dose Route Start Last Admin Trade Name Freq PRN Reason Stop Dose Admin Albuterol/Ipratropium 3 ml 07/14/24 14:44 07/14/24 15:35 Ipratropium/Albuterol 3 Ml Neb IH 07/14/24 14:45 3 ml ONCE ONE Administration Ceftriaxone Sodium 2 gm/ 100 mls @ 200 mls/hr 07/14/24 16:00 07/14/24 16:10 Sodium Chloride IV 07/24/24 15:59 200 mls/hr Q24H SHARRI Administration Azithromycin 500 mg/ Sodium 250 mls @ 250 mls/hr 07/14/24 16:00 07/14/24 16:46 Chloride IV 07/24/24 15:59 250 mls/hr Q24H SHARRI Administration Methylprednisolone Sodium Succinate 125 mg 07/14/24 14:44 07/14/24 15:35 Methylprednisolone Sod Succ 125mg Vial IV 07/14/24 14:45 125 mg ONCE ONE Administration ORDERS Category Date Time Status XR chest 2V Stat Exams 07/14/24 14:43 Completed Complete Blood Count Auto Diff Stat Lab 07/14/24 14:49 Completed Comprehensive Metabolic Panel Stat Lab 07/14/24 14:49 Completed Full Resp Panel w/COVID ([facility]) Routine Lab 07/14/24 14:49 Completed Lactic Acid Stat Lab 07/14/24 14:49 Completed Lipase Stat Lab 07/14/24 14:49 Completed Urinalysis and Microscopic Stat Lab 07/14/24 16:26 Completed Blood Culture Stat Micro 07/14/24 15:30 Received VBG [Venous Blood Gas] Stat RT 07/14/24 15:41 Ordered Venous Blood Gas Stat RT 07/14/24 14:46 Completed ECG Data Tracing #1: I reviewed this ECG and interpreted as documented below: Sinus tachycardia with a ventricular rate of 102 bpm. Right axis deviation. No acute ST changes concerning for ischemia. ECG initial impression date: 07/14/24 ECG initial impression time: 14:45 <Maximus Mohr MD - Last Filed: 07/14/24 18:58> Vital Signs: 07/14/24 14:11 07/14/24 15:00 07/14/24 15:52 Temperature 99.1 F Temperature Source Oral Pulse Rate 96 H 92 H Pulse Rate [Radial] 106 H Respiratory Rate 20 30 H 22 Blood Pressure 155/82 H 118/66 Blood Pressure [Right Arm] 182/96 H Blood Pressure Mean [Right Arm] 124 Blood Pressure Source [Right Arm] Automatic Cuff Blood Pressure Position [Right Arm] Sitting 02 Sat by Pulse Oximetry 84 L 94 L 93 L Oxygen Delivery Method Room Air Nasal Cannula Nasal Cannula 07/14/24 16:01 07/14/24 16:30 07/14/24 17:00 Temperature Temperature Source Pulse Rate 92 H 90 Pulse Rate [Radial] Respiratory Rate 28 H 26 H 29 H Blood Pressure 120/66 121/71 124/72 Blood Pressure [Right Arm] Blood Pressure Mean [Right Arm] Blood Pressure Source [Right Arm] Blood Pressure Position [Right Arm] 02 Sat by Pulse Oximetry 93 L 95 Oxygen Delivery Method Nasal Cannula Nasal Cannula Nasal Cannula 07/14/24 17:30 07/14/24 18:04 Temperature 98.9 F Temperature Source Oral Pulse Rate 98 H 93 H Pulse Rate [Radial] Respiratory Rate 27 H 22 Blood Pressure 126/80 100/72 L Blood Pressure [Right Arm] Blood Pressure Mean [Right Arm] Blood Pressure Source [Right Arm] Blood Pressure Position [Right Arm] 02 Sat by Pulse Oximetry 91 L Oxygen Delivery Method Nasal Cannula Nasal Cannula Lab Data Lab Results 07/14/24 14:46: VBG pH 7.39, VBG pCO2 57.2 H, VBG pO2 102.9 H, VBG HCO3 33.8 H, VBG Total CO2 35.6 H, VBG O2 Saturation 98.0 H, VBG Base Excess 8.9 H, VBG Lactic Acid 1.8 07/14/24 14:49: WBC 12.2 H, RBC 4.82, Hgb 12.2, Hct 39.6, MCV 82.1, MCH 25.3 L, MCHC 30.8 L, RDW 16.1, Plt Count 405, MPV 7.8, Neut % (Auto) 78.3, Lymph % (Auto) 15.5, [place] % (Auto) 5.1, Eos % (Auto) 0.5, Baso % (Auto) 0.6, Neut # (Auto) 9.6 H, Lymph # (Auto) 1.9, [place] # (Auto) 0.6, Eos # (Auto) 0.1, Baso # (Auto) 0.1, Sodium 136, Potassium 3.7, Chloride 96 L, Carbon Dioxide 35 H, Anion Gap 8.7, BUN 18 H, Creatinine 0.80, Estimated Creat Clear 90, Estimated GFR 75, Est GFR ( Amer) 91, Glucose 106 H, Lactate 1.2, Calcium 8.2 L, Total Bilirubin 0.4, AST 25, ALT 17, Alkaline Phosphatase 122, Total Protein 7.4, Albumin 3.8, Globulin 3.6 H, Albumin/Globulin Ratio 1.1, Lipase 27, Chlamy pneumoniae PCR Not detected, Adenovirus (PCR) Not detected, B. pertussis DNA (PCR) Not detected, Coronavirus OC43 (PCR) Not detected, Coronavirus HKU1 (PCR) Not detected, Coronavirus 229E (PCR) Not detected, SARS-CoV-2 (PCR) Not detected, Coronavirus NL63 (PCR) Not detected, Human Metapneumovir PCR Not detected, Influenza A (H1) PCR Not detected, Influ A (H1N1/09) PCR Not detected, Influenza A (H3) PCR Not detected, Influenza Type A (PCR) Not detected, Influenza Type B (PCR) Not detected, M. pneumoniae (PCR) Not detected, Parainfluenza 1 (PCR) Not detected, Parainfluenza 2 (PCR) Not detected, Parainfluenza 3 (PCR) Not detected, Parainfluenza 4 (PCR) Not detected, RSV (PCR) Not detected, Entero/Rhino (PCR) Not detected 07/14/24 16:26: Urine Color Dark yellow, Urine Appearance Clear, Urine pH 6.5, Ur Specific Zahl 1.020, Urine Protein Negative, Urine Glucose (UA) 3+, Urine Ketones Negative, Urine Blood Negative, Urine Nitrate Negative, Urine Bilirubin Negative, Urine Urobilinogen 0.2, Ur Leukocyte Esterase Negative, Urine RBC None, Urine WBC 3-5, Ur Squamous Epith Cells 3-5, Urine Bacteria Trace Orders (Tests/Meds): ED MEDICATIONS Discontinued Medications Generic Name Dose Route Start Last Admin Trade Name Freq PRN Reason Stop Dose Admin Albuterol/Ipratropium 3 ml 07/14/24 14:44 07/14/24 15:35 Ipratropium/Albuterol 3 Ml Neb IH 07/14/24 14:45 3 ml ONCE ONE Administration Ceftriaxone Sodium 2 gm/ 100 mls @ 200 mls/hr 07/14/24 16:00 07/14/24 16:10 Sodium Chloride IV 07/24/24 15:59 200 mls/hr Q24H SHARRI Administration Azithromycin 500 mg/ Sodium 250 mls @ 250 mls/hr 07/14/24 16:00 07/14/24 16:46 Chloride IV 07/24/24 15:59 250 mls/hr Q24H SHARRI Administration Methylprednisolone Sodium Succinate 125 mg 07/14/24 14:44 07/14/24 15:35 Methylprednisolone Sod Succ 125mg Vial IV 07/14/24 14:45 125 mg ONCE ONE Administration ORDERS Category Date Time Status XR chest 2V Stat Exams 07/14/24 14:43 Completed Complete Blood Count Auto Diff Stat Lab 07/14/24 14:49 Completed Comprehensive Metabolic Panel Stat Lab 07/14/24 14:49 Completed Full Resp Panel w/COVID ([facility]) Routine Lab 07/14/24 14:49 Completed Lactic Acid Stat Lab 07/14/24 14:49 Completed Lipase Stat Lab 07/14/24 14:49 Completed Urinalysis and Microscopic Stat Lab 07/14/24 16:26 Completed Blood Culture Stat Micro 07/14/24 15:30 Received VBG [Venous Blood Gas] Stat RT 07/14/24 15:41 Ordered Venous Blood Gas Stat RT 07/14/24 14:46 Completed Medical Decision Narrative: Insert review patient is a 53-year-old female presenting to the emergency department for evaluation of shortness of breath that started last night with cough and wheezing. She has occasional productive sputum as well. She did run out of oxygen this morning and came into the ER setting 84%. She was placed on her normal home O2 and rebounded to 95%.. Patient is hemodynamically stable once placed on home O2 of 2 L and nontoxic-appearing upon arrival, afebrile]. Differential diagnosis includes pneumonia, COPD exacerbation, viral illness among others. Workup will be conducted with hematologic labs, specific imaging including chest x-ray, provocative tests. Initial inventions include crystalloid bolus, antibiotics for right sided pneumonia. Initial workup reviewed by me hematologic labs are remarkable for nothing acute. Imaging informally interpreted by me and remarkable for right-sided pneumonia. Formal imaging read remarkable for right-sided opacities versus right-sided pneumonia. Upon repeat evaluation patient's pain is improved. Her O2 sat is 95% on 2 L. She looks better and is sitting up eating. She has been informed that she does have right-sided pneumonia that she will be given IV antibiotics here as well as sent home with IV antibiotics with steroids. Patient family member states that she does have home O2 that they refilled it today. Patient will follow-up with her primary care physician the beginning of next week. We called [facility] and attempt to get a portable tank as she does not have a portable but she has a home O2 at home. Patient refused to allow us to get this. She wanted to leave at this time. Patient said she would roll the window down she did not want to wait any longer to go home. I was consulted by the [facility], and we discussed the complexity of the problems being addressed. I approve the treatment and management plan for this patient's care in the emergency department, thus performing a substantive portion of the medical decision making. Patient ultimately stated that she did not want to stay until 7:00 when portable oxygen could be provided to her on patient then left the emergency department. Maximus Mohr MD Critical Care <Daniela Armenta, DO - Last Filed: 07/14/24 16:04> Critical Care Time Critical Care Time: No
[2024-07-14] MEDS: METHYLPREDNISOLONE SOD SUCC 125MG VIAL 125 MG IV (15:35)
[2024-07-14] MEDS: IPRATROPIUM/ALBUTEROL 3 ML NEB IH (15:35)
[2024-07-14] MEDS: CEFTRIAXONE SODIUM 2 GM in 0.9 % SODIUM CHLORIDE 100 ML IV (16:10)
[2024-07-14 16:32] LABS: Microscopic, Urine URINE MICROSCOPIC (MICROSCOPIC)
[2024-07-14 16:42] LABS: Appearance,Urine CLEAR (Clear); Bilirubin,Urine Negative (Negative); Blood, Urine Negative (Negative); Glucose,Urine (UA) 3+ (Negative); Ketones,Urine Negative (Negative); Leukocyte Esterase,Urine Negative (Negative); Nitrate,Urine Negative (Negative); PH,Urine 6.5 (5.0-8.5); Protein,Urine Negative (Negative); Urobilinogen,Urine 0.2 EU/dl (0.2)
[2024-07-14 16:43] LABS: Color,Urine Dark Yellow (Yellow)
[2024-07-14] MEDS: AZITHROMYCIN 500 MG in 0.9 % SODIUM CHLORIDE 250 ML 250 MG IV (16:46)
[2024-07-14 17:21] LABS: Bacteria,Urine Trace /lpf
== END 2024-07-14 18:25 | disposition home or self-care (01) ==
PROVIDERS: Nurse Practitioner; Emergency Provider Student in an Organized Health Care Education/Training Program; PCP Family Medicine
DX: J44.9 Chronic obstructive pulmonary disease, unspecified (principal); R05.9 Cough, unspecified; R06.02 Shortness of breath; R06.2 Wheezing
CPT/HCPCS: 71046; 80053; 81001; 82803; 83605; 83690; 85025; 87040; 87633; 93005; 96374; 96375; 99284; J0456; J0696; J2919; J7050; J7620

== ENCOUNTER 2024-07-31 05:10 | Emergency (ER) | payer MEDICAID, SELFPAY ==
[2024-07-31] VITALS (7 sets, daily range): BP systolic 100–144; BP diastolic 57–80; PULSE 74–96; RESP 16–18; TEMP 36.7–37.1; O2SAT 95–100; BMI 25.0
--- NOTE | 2024-07-31 05:18 | XR_ITS ---
PROCEDURE INFORMATION: Exam: XR Chest Exam date and time: 07/31/2024 6:10 AM Age: 53 years old Clinical indication: Cough and shortness of breath; Additional info: Cough SOA TECHNIQUE: Imaging protocol: Radiologic exam of the chest. Views: 2 views. COMPARISON: 1. CR XR CHEST 2V 07/14/2024 3:[address] CHEST WO CON 01/17/2024 7:43 PM FINDINGS: Lungs: See Pleural spaces finding. Pleural spaces: There is redemonstration of hazy ground-glass opacification involving the lower half of the right hemithorax with pronounced blunting the right costophrenic angle relatively unchanged shown on earlier CT due to combination of pleural thickening small loculated pleural effusion in scattered atelectasis. There are less pronounced findings at the left lung base also similar in nature and unchanged. Heart/Mediastinum: Unremarkable. No cardiomegaly. Bones/joints: There is chronic deformity of both shoulder joints secondary old injuries, stable. No acute bony abnormalities detected. IMPRESSION: 1. Stable chest exam with evidence of diffuse pleural thickening small loculated pleural effusions and scattered atelectasis involving the lower lung zones more extensive on the right unchanged.. 2. Mild cardiomegaly, stable.
--- NOTE | 2024-07-31 05:22 | ECG_ITS ---
APPROVED REPORT Exam: Resting ECG HR:92 bpm ECG Measurements Heart Rate 92 AXES CA 153 P 77 QRSd 102 QRS 112 QT 360 T 64 QTc 410 Conclusion SINUS RHYTHM POSSIBLE RIGHT VENTRICULAR HYPERTROPHY [SOME/ALL OF: PROMINENT R IN V1, LATE TRANSITION, RAD, JACKIE, SSS] No STEMI Electronically signed by : RORY DC, 08/01/2024 06:03:14
[2024-07-31] MEDS: METHYLPREDNISOLONE SOD SUCC 125MG VIAL 125 MG IV (05:26)
--- NOTE | 2024-07-31 05:26 | [facility].EDCP ---
Discharge Plan Disposition Patient Disposition: Home, Self-Care Condition: Fair Prescriptions Prescriptions: New doxycycline hyclate 100 mg capsule 100 mg PO BID 7 Days Qty: 14 0RF prednisone 50 mg tablet 50 mg PO DAILY 5 Days Qty: 5 0RF No Action spironolactone 25 mg tablet 25 mg PO BID Qty: 60 5RF risperidone [Risperdal] 0.5 mg tablet 0.5 mg PO BID Qty: 60 2RF Jardiance 10 mg tablet 10 mg PO DAILY 90 Days Qty: 90 2RF escitalopram oxalate [Lexapro] 10 mg tablet 10 mg PO DAILY Qty: 90 1RF Nurtec ODT 75 mg tablet,disintegrating 75 mg PO ONCE PRN (Reason: migraine headache) Qty: 10 12RF Nuedexta 20-10 mg capsule 1 cap PO BID Qty: 60 3RF bupropion HCl 300 mg tablet extended release 24 hr 300 mg PO DAILY Qty: 90 0RF irbesartan 75 mg tablet 75 mg PO DAILY 30 Days Qty: 30 4RF gabapentin 300 mg capsule 300 mg PO TID Qty: 90 0RF divalproex 500 mg tablet,delayed release (DR/EC) 500 mg PO TID Qty: 90 4RF clonazepam 1 mg tablet 0.5 mg PO BIDP PRN (Reason: Anxiety) Qty: 30 0RF levofloxacin 750 mg tablet 750 mg PO DAILY 4 Days Qty: 4 0RF prednisone 20 mg tablet 20 mg PO DAILY 3 Days Qty: 6 0RF ipratropium-albuterol 0.5 mg-3 mg(2.5 mg base)/3 mL solution for nebulization 3 ml inhalation QIDP PRN (Reason: shortness of breath or wheezing) omeprazole 20 mg capsule,delayed release(DR/EC) 20 mg PO DAILY albuterol sulfate [Ventolin HFA] 90 mcg/actuation HFA aerosol inhaler 1 inh inhalation Q4HP PRN (Reason: Shortness Of Breath) carvedilol 3.125 mg Tablet 3.125 mg PO BID 30 Days Qty: 60 0RF furosemide 40 mg tablet 40 mg PO BIDL 30 Days Qty: 60 4RF cefdinir 300 mg capsule 300 mg PO BID 10 Days Qty: 20 0RF azithromycin 500 mg tablet See Rx Instructions .ROUTE .COMPLEX Qty: 6 0RF Rx Instructions: For 250 mg dose pack: take 500 mg today (day 1), then 250 mg for 4 days (days 2-5) prednisone 20 mg tablet 20 mg PO BID 7 Days Qty: 14 0RF Referrals Follow up/Referrals: Angeles Ling MD [Primary Care Provider] - See instructions Activity Restrictions/Add. Instructions Additional Instructions/Restrictions: You were evaluated in the ER and are appropriate for discharge at this time. Take the prescribed doxycycline as directed, do not skip doses, do not stop taking it early. Continue using your provided inhaler every 4-6 hours for the next 48 hours. Also take the prescribed steroids as directed. Make an appointment with your primary care doctor for reevaluation in a few days So they can recheck your kidney function and salt in your blood which was low today. Return to the ER with new, worsening, otherwise concerning symptoms Clinical Impressions Clinical Impression: COPD exacerbation, Prerenal azotemia, Hyponatremia Print Language Print Language: Swedish Discharge ED Provider: Sunny Chung HPI <Sunny Chung MD - Last Filed: 07/31/24 07:12> General Chief Complaint: Shortness of Breath/Dyspnea Stated Complaint: cough, soa, wheezing Time Seen by Provider: 07/31/24 05:14 Mode of Arrival: Ambulatory Source of Information: Patient and Relative Limitations: No Limitations Description of Symptoms (Recalled from ER Triage Doc. by RN): Patient reports being short of breath and feeling junky in her lungs. History of Present Illness HPI narrative: 53-year-old female with history of cognitive impairment, REYMUNDO, COPD on 2 L nasal cannula at home, cor pulmonale, HFpEF presents to the ER with complaints of shortness of breath, cough. Family at bedside presents with her reporting that patient has had cough and congestion for the last 3 days. In the last 24 hours her respiratory status has worsened. Patient reports she last took her inhaler before bed. She is having shortness of breath and describes a productive cough. She does not have any localizing chest pain. She reports no nausea, vomiting, diarrhea, or abdominal pain. No headache or dizziness, no numbness, tingling, or weakness. Patient has had temperatures up to 100.4. Family is concerned about possible pneumonia, COPD flareup. Related Data Home Medications ?Medication ?Instructions ?Recorded ?Confirmed albuterol sulfate 90 mcg/actuation 1 inh inhalation Q4HP PRN 03/31/24 06/27/24 aerosol inhaler (Ventolin HFA) Shortness Of Breath ipratropium 0.5 mg-albuterol 3 mg 3 ml inhalation QIDP PRN shortness 03/31/24 06/27/24 (2.5 mg base)/3 mL nebulization of breath or wheezing soln omeprazole 20 mg capsule,delayed 20 mg PO DAILY 03/31/24 06/27/24 release Previous Rx's ?Medication ?Instructions ?Recorded empagliflozin 10 mg tablet 10 mg PO DAILY 90 days #90 tabs 02/23/24 (Jardiance) escitalopram oxalate 10 mg tablet 10 mg PO DAILY #90 tabs 03/30/24 (Lexapro) carvedilol 3.125 mg tablet 3.125 mg PO BID 30 days #60 tabs 04/01/24 furosemide 40 mg tablet 40 mg PO BIDL 30 days #60 tabs 04/01/24 rimegepant 75 mg disintegrating 75 mg PO ONCE PRN migraine 04/26/24 tablet (Nurtec ODT) headache #10 tabs dextromethorphan 20 mg-quinidine 1 cap PO BID #60 caps 06/08/24 10 mg capsule (Nuedexta) bupropion HCl 300 mg 24 hr tablet, 300 mg PO DAILY #90 tabs 06/13/24 extended release irbesartan 75 mg tablet 75 mg PO DAILY 30 days #30 tabs 06/13/24 gabapentin 300 mg capsule 300 mg PO TID #90 caps 06/14/24 risperidone 0.5 mg tablet 0.5 mg PO BID #60 tabs 06/19/24 (Risperdal) spironolactone 25 mg tablet 25 mg PO BID #60 tabs 06/21/24 levofloxacin 750 mg tablet 750 mg PO DAILY 4 days #4 tabs 06/28/24 prednisone 20 mg tablet 20 mg PO DAILY 3 days #6 tabs 06/28/24 divalproex 500 mg tablet,delayed 500 mg PO TID #90 tabs 07/12/24 release azithromycin 500 mg tablet See Rx Instructions PO .COMPLEX #6 07/14/24 tabs cefdinir 300 mg capsule 300 mg PO BID 10 days #20 caps 07/14/24 prednisone 20 mg tablet 20 mg PO BID 7 days #14 tabs 12/14/24 clonazepam 1 mg tablet 0.5 mg (1/2 x 1 mg) PO BIDP PRN 07/31/24 Anxiety #30 tabs doxycycline hyclate 100 mg capsule 100 mg PO BID 7 days #14 caps 07/31/24 prednisone 50 mg tablet 50 mg PO DAILY 5 days #5 tabs 07/31/24 Allergies Allergy/AdvReac Type Severity Reaction Status Date / Time nicotine AdvReac Rash Verified 06/21/24 09:26 [facility] <Sunny Chung MD - Last Filed: 07/31/24 07:12> [facility] Disclaimer: The information contained in this section may have been updated after the patient was seen, as this information can be updated by other users. Medical History Diminished pulses in lower extremity Leg numbness Chronic asthmatic bronchitis Closed nondisplaced fracture of fifth metatarsal bone of left foot with routine healing Avulsion fracture Respiratory failure with hypercapnia Right lower lobe pneumonia Encounter for general medical examination Lower GI bleeding Abnormal laboratory test result Asthma exacerbation in COPD Acute chest wall pain Pneumonia UTI (urinary tract infection) Recurrent pneumonia Acute viral syndrome Abnormal electrocardiogram [ECG] [EKG] Cough Diarrhea REYMUNDO (obstructive sleep apnea) (HFpEF) heart failure with preserved ejection fraction Oxygen dependent Neuropathy Smoking greater than 30 pack years Mediastinal lymphadenopathy Pulmonary embolism Dyspnea on exertion Acute diastolic CHF (congestive heart failure) Pulmonary hypertension Hilar lymphadenopathy Pleural effusion on right Pneumonia Anxiety disorder Seizure disorder Mood disorder Incontinence INCONTINENCE AT TIMES History of COVID-19 Asthma History of gastroesophageal reflux (GERD) Allergies Depression Anxiety Urinary tract infection Migraine COPD (chronic obstructive pulmonary disease) Hyperlipidemia Hypertension Surgical History History of colonoscopy History of breast biopsy History of hysterectomy History of cholecystectomy Family History Father Lung cancer Sister Ovarian cancer Kidney disease Lung cancer Mother Kidney disease Other Family history of diabetes mellitus type II Family history of hyperlipidemia Family history of hypertension Family history of migraine headaches Family history of myocardial infarction Social History Smoking Status: Current every day smoker tobacco type: cigarettes packs per day: 1 alcohol intake: never counseling provided: none substance use type: denies use current occupational status: disabled Travel in the last 8 weeks: None caregiver/support person: Yes household members: caregiver housing: assisted living facility lives independently: No do you feel safe at home: Yes victim of physical abuse: No victim of emotional abuse: No victim of sexual abuse: No would you like helpful sources: No Have you lived/traveled outside [place] in past 30 days?: No Contact w/someone who lives/traveled outside [place] past 30 days?: No Exposure to someone with infectious disease in past 14 days?: No Do you have a fever (greater than 100.4 F or 38 C)?: No Have you tested positive for COVID-19: No Exposed to someone with COVID-19 in past 14 days?: No Do you have a sore throat?: No Do you have a cough?: Yes Do you have any weakness?: No Do you have any diarrhea?: No Are you experiencing any unusual bleeding?: No Do you have any muscle aches/pain?: No Do you have any abdominal pain?: No Are you experiencing loss of taste or smell?: No Other Medical History Have you received the Flu Vaccine for this season: No Have you received the Pneumonia Vaccine: No <Sunny Chung MD - Last Filed: 07/31/24 07:12> ROS Obtained: Yes Systems reviewed as appropriate & no additional complaints except as documented Per HPI Physical Exam <Sunny Chung MD - Last Filed: 07/31/24 07:12> General General appearance: alert and in no apparent distress Head Head exam: atraumatic and normocephalic Eye Eye exam: Present PERRL and EOMI ENT ENT exam: Present mucous membranes moist Neck Neck exam: Present normal inspection and full ROM Chest Chest inspection: Present symmetric chest wall rise Respiratory Respiratory exam: Present wheezes (Diffuse wheezes throughout); Absent normal lung sounds bilaterally (Rhonchi, rales throughout), respiratory distress, stridor or accessory muscle use Cardiovascular Cardiovascular exam: Present regular rate and normal rhythm Abdominal Exam Abdominal exam: Present soft; Absent distention or tenderness Extremities Exam Extremities exam: Present full ROM; Absent edema Neurological Exam Neurological exam: Present alert and oriented X3; Absent motor sensory deficit Psychiatric Psychiatric exam: Present normal affect and normal mood Skin Skin exam: Present warm and dry HEART Score <Sunny Chung MD - Last Filed: 07/31/24 07:12> HEART Score HEART Score assessment performed?: No Critical Care <Sunny Chung MD - Last Filed: 07/31/24 07:12> Critical Care Time Critical Care Time: No Medical Decision Making <Sunny Chung MD - Last Filed: 07/31/24 07:12> Medical Records Medical records reviewed: Yes I reviewed the patient's medical records. MR Comment: Most recent discharge summary from 06/28/2024 was reviewed. Patient was admitted for cough, shortness of breath, lung pain. She had a mild leukocytosis and elevated BNP at the time of admission with basilar atelectasis versus early pneumonia. She had received Rocephin and azithromycin in the ER. Patient was ultimately discharged on levofloxacin and prednisone. Vlad Inquiry Pt receiving controlled substance: No Vital Signs Vital Signs: 07/31/24 05:12 07/31/24 05:54 07/31/24 05:54 Temperature 98.7 F Temperature Source Oral Pulse Rate 88 90 Pulse Rate [Right Radial] 92 H Respiratory Rate 16 Blood Pressure Blood Pressure [Right Arm] 134/72 Blood Pressure Mean [Right Arm] 92 Blood Pressure Source [Right Arm] Automatic Cuff Blood Pressure Position [Right Arm] Supine 02 Sat by Pulse Oximetry 96 Oxygen Delivery Method Nasal Cannula Oxygen Flow Rate (LPM) 2 07/31/24 06:01 07/31/24 06:45 07/31/24 07:00 Temperature Temperature Source Pulse Rate 88 90 87 Pulse Rate [Right Radial] Respiratory Rate Blood Pressure 104/61 L 117/63 100/57 L Blood Pressure [Right Arm] Blood Pressure Mean [Right Arm] Blood Pressure Source [Right Arm] Blood Pressure Position [Right Arm] 02 Sat by Pulse Oximetry 100 99 95 Oxygen Delivery Method Room Air Oxygen Flow Rate (LPM) 07/31/24 07:34 Temperature Temperature Source Pulse Rate 96 H Pulse Rate [Right Radial] Respiratory Rate Blood Pressure 144/80 H Blood Pressure [Right Arm] Blood Pressure Mean [Right Arm] Blood Pressure Source [Right Arm] Blood Pressure Position [Right Arm] 02 Sat by Pulse Oximetry 95 Oxygen Delivery Method Room Air Oxygen Flow Rate (LPM) Lab Data Labs: Lab Results 07/31/24 05:44: VBG pH 7.35, VBG pCO2 48.1, VBG pO2 66.8 H, VBG HCO3 25.8, VBG Total CO2 27.3 H, VBG O2 Saturation 92.2 H, VBG Base Excess 0.1, VBG Lactic Acid 1.4 07/31/24 05:45: WBC 8.7, RBC 4.69, Hgb 11.6 L, Hct 37.2, MCV 79.3 L, MCH 24.7 L, MCHC 31.2 L, RDW 15.0, Plt Count 311, MPV 9.6, Neut % (Auto) 67.8, Lymph % (Auto) 22.8, [place] % (Auto) 7.2, Eos % (Auto) 1.1, Baso % (Auto) 0.5, Neut # (Auto) 5.9, Lymph # (Auto) 2.0, [place] # (Auto) 0.6, Eos # (Auto) 0.1, Baso # (Auto) 0.0, PT 10.3, INR 0.91, Sodium 129 L, Potassium 4.7, Chloride 91 L, Carbon Dioxide 32 H, Anion Gap 10.7, BUN 39 H, Creatinine 1.10 H, Estimated Creat Clear 64, Estimated GFR 52 L, Est GFR ( Amer) 63, Glucose 87, Calcium 8.4, Total Bilirubin 0.5, AST 27, ALT 19, Alkaline Phosphatase 131 H, Troponin I < 0.01, NT-Pro-B Natriuret Pep 63.3, Total Protein 7.2, Albumin 3.9, Globulin 3.3 H, Albumin/Globulin Ratio 1.2, SARS-CoV-2 (PCR) Not detected, Influenza A Untype (PCR) Not detected, Influenza Type B (PCR) Not detected 07/31/24 05:45 07/31/24 05:45 Response Orders (Tests/Meds): ED MEDICATIONS Discontinued Medications Generic Name Dose Route Start Last Admin Trade Name Freq PRN Reason Stop Dose Admin Albuterol Sulfate 2 puff 07/31/24 07:11 07/31/24 07:19 Albuterol-Hfa 90mcg/Puff Inhaler 8gm IH 07/31/24 07:12 2 puff ONCE ONE Administration Albuterol/Ipratropium 9 ml 07/31/24 05:19 07/31/24 05:54 Ipratropium/Albuterol 3 Ml Neb 07/31/24 05:20 9 ml ONCE ONE Administration Sodium Chloride 1,000 mls @ 999 mls/hr 07/31/24 07:05 07/31/24 07:20 Sod Chlor 0.9% 1000ml Bag IV 07/31/24 08:05 999 mls/hr .Q1H1M ONE Administration Methylprednisolone Sodium Succinate 125 mg 07/31/24 05:19 07/31/24 05:26 Methylprednisolone Sod Succ 125mg Vial IV 07/31/24 05:20 125 mg ONCE ONE Administration Miscellaneous 1 unit 07/31/24 07:10 07/31/24 07:18 Aerochamber/Optihaler 07/31/24 07:11 1 unit ONCE ONE Administration ORDERS Category Date Time Status XR chest 2V Stat Exams 07/31/24 05:18 Taken Complete Blood Count Auto Diff Stat Lab 07/31/24 05:45 Completed Comprehensive Metabolic Panel Stat Lab 07/31/24 05:45 Completed NT Pro Brain Natriuretic Pep. Stat Lab 07/31/24 05:45 Completed Prothrombin Time INR Stat Lab 07/31/24 05:45 Completed Rapid PCR Covid and Flu A/B Stat Lab 07/31/24 05:45 Completed Troponin I Q3H Lab 07/31/24 08:30 Ordered Troponin I Q3H Lab 07/31/24 11:30 Ordered Troponin I Stat Lab 07/31/24 05:45 Completed Venous Blood Gas Stat RT 07/31/24 05:44 Completed MDM Narrative Medical Decision Narrative: In summary, this 53-year-old female with comorbidities described in the HPI presents to the emergency department today with cough, shortness of breath. On initial evaluation patient is hemodynamically stable, currently afebrile, pulmonary exam notable for diffuse wheezing as well as rhonchi and rales, patient is saturating well on home 2 L nasal cannula, no peripheral edema, remainder of exam benign. Differential diagnosis includes but is not limited to viral syndrome, COPD exacerbation, hypercarbia, pneumonia, fluid overload, also considered atypical presentation of ACS though I have lower suspicion for the. Based on these concerns, I ordered serum labs, cardiac workup, chest x-ray. ECG personally interpreted demonstrates normal sinus rhythm, rate 92, borderline right axis deviation, normal KS and QTc, no STEMI. Patient received DuoNeb, IV Solu-Medrol initially for treatment. Labs personally reviewed demonstrate no leukocytosis, hemoglobin 11.6 down from 12.2 approximately 2 weeks ago, platelets normal, VBG with normal pH, no hypercarbia, COVID, flu negative. XR personally interpreted demonstrates no new lobar infiltrate, CXR similar to previous. Radiology read pending. CMP resulted with prerenal azotemia, patient is receiving IV fluids. Initial troponin undetectably low less than 0.01, given duration of symptoms I do not believe serial troponins are indicated at this time. I anticipate patient will be appropriate for discharge after IV fluids. Patient handed off to Dr. Rosas in stable condition. <Barak Rosas MD - Last Filed: 07/31/24 08:09> Vital Signs Vital Signs: 07/31/24 05:12 07/31/24 05:54 07/31/24 05:54 Temperature 98.7 F Temperature Source Oral Pulse Rate 88 90 Pulse Rate [Right Radial] 92 H Respiratory Rate 16 Blood Pressure Blood Pressure [Right Arm] 134/72 Blood Pressure Mean [Right Arm] 92 Blood Pressure Source [Right Arm] Automatic Cuff Blood Pressure Position [Right Arm] Supine 02 Sat by Pulse Oximetry 96 Oxygen Delivery Method Nasal Cannula Oxygen Flow Rate (LPM) 2 07/31/24 06:01 07/31/24 06:45 07/31/24 07:00 Temperature Temperature Source Pulse Rate 88 90 87 Pulse Rate [Right Radial] Respiratory Rate Blood Pressure 104/61 L 117/63 100/57 L Blood Pressure [Right Arm] Blood Pressure Mean [Right Arm] Blood Pressure Source [Right Arm] Blood Pressure Position [Right Arm] 02 Sat by Pulse Oximetry 100 99 95 Oxygen Delivery Method Room Air Oxygen Flow Rate (LPM) 07/31/24 07:34 Temperature Temperature Source Pulse Rate 96 H Pulse Rate [Right Radial] Respiratory Rate Blood Pressure 144/80 H Blood Pressure [Right Arm] Blood Pressure Mean [Right Arm] Blood Pressure Source [Right Arm] Blood Pressure Position [Right Arm] 02 Sat by Pulse Oximetry 95 Oxygen Delivery Method Room Air Oxygen Flow Rate (LPM) Lab Data Labs: Lab Results 07/31/24 05:44: VBG pH 7.35, VBG pCO2 48.1, VBG pO2 66.8 H, VBG HCO3 25.8, VBG Total CO2 27.3 H, VBG O2 Saturation 92.2 H, VBG Base Excess 0.1, VBG Lactic Acid 1.4 07/31/24 05:45: WBC 8.7, RBC 4.69, Hgb 11.6 L, Hct 37.2, MCV 79.3 L, MCH 24.7 L, MCHC 31.2 L, RDW 15.0, Plt Count 311, MPV 9.6, Neut % (Auto) 67.8, Lymph % (Auto) 22.8, [place] % (Auto) 7.2, Eos % (Auto) 1.1, Baso % (Auto) 0.5, Neut # (Auto) 5.9, Lymph # (Auto) 2.0, [place] # (Auto) 0.6, Eos # (Auto) 0.1, Baso # (Auto) 0.0, PT 10.3, INR 0.91, Sodium 129 L, Potassium 4.7, Chloride 91 L, Carbon Dioxide 32 H, Anion Gap 10.7, BUN 39 H, Creatinine 1.10 H, Estimated Creat Clear 64, Estimated GFR 52 L, Est GFR ( Amer) 63, Glucose 87, Calcium 8.4, Total Bilirubin 0.5, AST 27, ALT 19, Alkaline Phosphatase 131 H, Troponin I < 0.01, NT-Pro-B Natriuret Pep 63.3, Total Protein 7.2, Albumin 3.9, Globulin 3.3 H, Albumin/Globulin Ratio 1.2, SARS-CoV-2 (PCR) Not detected, Influenza A Untype (PCR) Not detected, Influenza Type B (PCR) Not detected Response Orders (Tests/Meds): ED MEDICATIONS Discontinued Medications Generic Name Dose Route Start Last Admin Trade Name Freq PRN Reason Stop Dose Admin Albuterol Sulfate 2 puff 07/31/24 07:11 07/31/24 07:19 Albuterol-Hfa 90mcg/Puff Inhaler 8gm 07/31/24 07:12 2 puff ONCE ONE Administration Albuterol/Ipratropium 9 ml 07/31/24 05:19 07/31/24 05:54 Ipratropium/Albuterol 3 Ml Neb 07/31/24 05:20 9 ml ONCE ONE Administration Sodium Chloride 1,000 mls @ 999 mls/hr 07/31/24 07:05 07/31/24 07:20 Sod Chlor 0.9% 1000ml Bag IV 07/31/24 08:05 999 mls/hr .Q1H1M ONE Administration Methylprednisolone Sodium Succinate 125 mg 07/31/24 05:19 07/31/24 05:26 Methylprednisolone Sod Succ 125mg Vial IV 07/31/24 05:20 125 mg ONCE ONE Administration Miscellaneous 1 unit 07/31/24 07:10 07/31/24 07:18 Aerochamber/Optihaler MC 07/31/24 07:11 1 unit ONCE ONE Administration ORDERS Category Date Time Status XR chest 2V Stat Exams 07/31/24 05:18 Taken Complete Blood Count Auto Diff Stat Lab 07/31/24 05:45 Completed Comprehensive Metabolic Panel Stat Lab 07/31/24 05:45 Completed NT Pro Brain Natriuretic Pep. Stat Lab 07/31/24 05:45 Completed Prothrombin Time INR Stat Lab 07/31/24 05:45 Completed Rapid PCR Covid and Flu A/B Stat Lab 07/31/24 05:45 Completed Troponin I Q3H Lab 07/31/24 08:30 Ordered Troponin I Q3H Lab 07/31/24 11:30 Ordered Troponin I Stat Lab 07/31/24 05:45 Completed Venous Blood Gas Stat RT 07/31/24 05:44 Completed MDM Narrative Medical Decision Narrative: In summary, this 53-year-old female with comorbidities described in the HPI presents to the emergency department today with cough, shortness of breath. On initial evaluation patient is hemodynamically stable, currently afebrile, pulmonary exam notable for diffuse wheezing as well as rhonchi and rales, patient is saturating well on home 2 L nasal cannula, no peripheral edema, remainder of exam benign. Differential diagnosis includes but is not limited to viral syndrome, COPD exacerbation, hypercarbia, pneumonia, fluid overload, also considered atypical presentation of ACS though I have lower suspicion for the. Based on these concerns, I ordered serum labs, cardiac workup, chest x-ray. ECG personally interpreted demonstrates normal sinus rhythm, rate 92, borderline right axis deviation, normal [place] and QTc, no STEMI. Patient received DuoNeb, IV Solu-Medrol initially for treatment. Labs personally reviewed demonstrate no leukocytosis, hemoglobin 11.6 down from 12.2 approximately 2 weeks ago, platelets normal, VBG with normal pH, no hypercarbia, COVID, flu negative. XR personally interpreted demonstrates no new lobar infiltrate, CXR similar to previous. Radiology read pending. CMP resulted with prerenal azotemia, patient is receiving IV fluids. Initial troponin undetectably low less than 0.01, given duration of symptoms I do not believe serial troponins are indicated at this time. I anticipate patient will be appropriate for discharge after IV fluids. Patient handed off to Dr. Rosas in stable condition. Barak Rosas: Upon assumption of care patient was hemodynamically stable, workup reviewed by me, no significant leukocytosis, no thrombocytopenia compensated acid-base status. There is a hyponatremia which is acute but nonactionable at 129. Initial troponin undetectably low. Viral swab negative. Chest x-ray informally interpreted by me, obvious consolidation in the right lower lobe however it does appear to be largely chronic from prior x-ray. However given acute cough and increased sputum production patient meets criteria for COPD exacerbation. Patient will be discharged with a course of doxycycline and steroids will follow-up on an outpatient basis for continued evaluation and was given return precautions.
[2024-07-31 05:51] LABS: Lactate Venous 1.4 mmol/L (0.4-2.0); VBG Base Excess 0.1 mmol/L (-2.4-2.3); VBG HCO3 25.8 mmol/L (23-30); VBG Oxygen Saturation 92.2 % (50-70); VBG PCO2 48.1 mmol/L (35-51); VBG PH 7.35 mmol/L (7.31-7.41); VBG PO2 66.8 mmol/L (28-40); VBG Total CO2 27.3 mmol/L (23-27)
[2024-07-31 05:53] LABS: Coronavirus 19, PCR Not Detected (NotDetected); Influenza A, PCR Not Detected (NotDetected); Influenza B, PCR Not Detected (NotDetected)
[2024-07-31] MEDS: IPRATROPIUM/ALBUTEROL 3 ML NEB 9 ML IH (05:54)
[2024-07-31 06:01] LABS: Basophils % 0.5 % (0.1-2.0); Eosinophils # 0.1 K/mm3 (0.0-0.4); Eosinophils % 1.1 % (0.1-12.0); Hematocrit 37.2 % (37.0-47.0); Hemoglobin 11.6 g/dL (12.2-16.2); Lymphocytes % 22.8 % (10-50); Mean Corpuscular HGB Conc 31.2 g/dL (31.8-35.4); Mean Corpuscular Hemoglobin 24.7 pg (27.0-31.2); Mean Corpuscular Volume 79.3 fl (81-99); Mean Platelet Volume 9.6 fl (7.4-10.4); Monocytes # 0.6 K/mm3 (0.1-1.0); Monocytes % 7.2 % (1.7-9.3); Neutrophils # 5.9 K/mm3 (1.8-7.8); Neutrophils % 67.8 % (37.0-80.0); Platelet Count 311 K/mm3 (142-424); Red Blood Count 4.69 M/mm3 (4.20-5.40); White Blood Count 8.7 K/mm3 (4.8-10.8)
[2024-07-31 06:13] LABS: Alanine Aminotransferase 19 U/L (12-78); Albumin Level 3.9 g/dl (3.5-5.0); Albumin/Globulin Ratio 1.2 (1.1-1.8); Alkaline Phosphatase 131 U/L (38-126); Aspartate Amino Transferase 27 U/L (14-36); Bilirubin,Total 0.5 mg/dl (0.2-1.3); Blood Urea Nitrogen 39 mg/dl (7-17); Calcium 8.4 mg/dl (8.4-10.2); Carbon Dioxide 32 mmol/L (22.0-30.0); Chloride 91 mmol/L (98-107); Creatinine Clearance Estimated 64 mL/min (50-200); Estimated Glomerular Filt Rate 52 ml/min (>60); GFR (African American) 63 ML/MIN (>60); Globulin 3.3 g/dL (1.3-3.2); Glucose 87 mg/dl (74-100); Potassium 4.7 mmoL/L (3.5-5.1); Total Protein,Serum 7.2 g/dl (6.3-8.2)
[2024-07-31 06:25] LABS: NT Pro Brain Natriuretic Pep. 63.3 pg/mL (0-125)
[2024-07-31 06:46] LABS: Troponin I < 0.01 ng/ml (0.00-0.034)
[2024-07-31 07:03] LABS: INR 0.91 (0.9-1.1); Prothrombin Time 10.3 seconds (10.1-12.5)
[2024-07-31 07:09] LABS: Anion Gap 10.7 mEq/L (5-15); Sodium 129 mmol/L (136-145)
[2024-07-31] MEDS: AEROCHAMBER/OPTIHALER 1 UNIT MC (07:18)
[2024-07-31] MEDS: ALBUTEROL-HFA 90MCG/PUFF INHALER 8GM 2 PUFF IH (07:19)
[2024-07-31] MEDS: 0.9 % SODIUM CHLORIDE 1000ML 1,000 ML 999 ML IV (07:20)
--- NOTE | 2024-07-31 08:19 | PC.NURSE ---
Pt. is on 2L NC at baseline and remained on 2L throughout her visit.
== END 2024-07-31 08:20 | disposition home or self-care (01) ==
PROVIDERS: Emergency Provider Emergency Medicine; PCP Family Medicine
DX: R79.89 Other specified abnormal findings of blood chemistry (principal); J44.1 Chronic obstructive pulmonary disease with (acute) exacerbation; R06.02 Shortness of breath; R05.9 Cough, unspecified; R09.81 Nasal congestion; E87.1 Hypo-osmolality and hyponatremia
CPT/HCPCS: 71046; 80053; 82803; 83880; 84484; 85025; 85610; 87636; 93005; 96361; 96374; 99284; J2919; J7030; J7620

== ENCOUNTER 2024-10-05 18:47 | Emergency (ER) | payer MEDICAID, SELFPAY ==
[2024-10-05] VITALS (17 sets, daily range): BP systolic 57–149; BP diastolic 27–124; PULSE 57–134; RESP 16–48; TEMP 35.9–36.2; O2SAT 81–100; BMI 28.3
--- NOTE | 2024-10-05 19:36 | XR_ITS ---
PROCEDURE INFORMATION: Exam: XR Chest Exam date and time: 10/05/2024 8:08 PM Age: 53 years old Clinical indication: Cough and shortness of breath; Additional info: SOA, cough, hypothermia TECHNIQUE: Imaging protocol: Radiologic exam of the chest. Views: 1 view. COMPARISON: CR XR CHEST 2V 07/31/2024 6:10 AM FINDINGS: Lungs: There is a pulmonary parenchymal calcification consistent with remote granulomatous organism exposure. There are mildly increased hazy opacities in the lung bases which likely reflect edema. The lungs appear otherwise clear. No focal areas of consolidation. Calcified left hilar lymph nodes indicate prior granulomatous disease. Pleural spaces: No pleural effusions. Negative for pneumothorax. Heart/Mediastinum: Mild pulmonary vascular equalization is present. The heart is mildly enlarged. Vasculature: Increase in azygos venous distension. Bones/joints: There is no evidence of acute fracture. Posttraumatic remote deformity of the proximal left humerus is stable. Mild degenerative changes of both shoulders is stable. IMPRESSION: 1. Mild cardiomegaly, significantly increased from prior exam. Correlate clinically. Pericardial effusion should be excluded. 2. Small bilateral pleural effusions. 3. Mildly increased hazy opacities in the lung bases likely reflect edema/CHF.
[2024-10-05] MEDS: LACTATED RINGERS 1000ML 1,000 ML 999 ML IV (19:43)
--- NOTE | 2024-10-05 19:46 | ED_ITS ---
Discharge Plan Disposition Patient Disposition: Xfer Short-Term Hosp Chief Complaint: Weakness Prescriptions Prescriptions: No Action spironolactone 25 mg tablet 25 mg PO BID Qty: 60 5RF trazodone 50 mg tablet 50 mg PO HS PRN clonazepam [Klonopin] 0.5 mg tablet 0.5 mg PO BID Qty: 60 1RF gabapentin 300 mg capsule 300 mg PO TID Qty: 90 1RF Jardiance 10 mg tablet 10 mg PO DAILY 90 Days Qty: 90 2RF escitalopram oxalate [Lexapro] 10 mg tablet 10 mg PO DAILY Qty: 90 1RF Nurtec ODT 75 mg tablet,disintegrating 75 mg PO ONCE PRN (Reason: migraine headache) Qty: 10 12RF Nuedexta 20-10 mg capsule 1 cap PO BID Qty: 60 3RF irbesartan 75 mg tablet 75 mg PO DAILY 30 Days Qty: 30 4RF divalproex 500 mg tablet,delayed release (DR/EC) 500 mg PO TID Qty: 90 4RF clonazepam 1 mg tablet 0.5 mg PO BIDP PRN (Reason: Anxiety) Qty: 30 0RF omeprazole 20 mg capsule,delayed release(DR/EC) 20 mg PO DAILY Qty: 30 2RF ipratropium-albuterol 0.5 mg-3 mg(2.5 mg base)/3 mL solution for nebulization 3 ml inhalation QID PRN (Reason: shortness of breath or wheezing) 90 Days Qty: 270 3RF bupropion HCl 300 mg tablet extended release 24 hr 300 mg PO DAILY Qty: 90 0RF risperidone [Risperdal] 0.5 mg tablet 0.5 mg PO BID Qty: 60 2RF ipratropium-albuterol 0.5 mg-3 mg(2.5 mg base)/3 mL solution for nebulization 3 ml inhalation QIDP PRN (Reason: shortness of breath or wheezing) albuterol sulfate [Ventolin HFA] 90 mcg/actuation HFA aerosol inhaler 1 inh inhalation Q4HP PRN (Reason: Shortness Of Breath) carvedilol 3.125 mg Tablet 3.125 mg PO BID 30 Days Qty: 60 0RF furosemide 40 mg tablet 40 mg PO BIDL 30 Days Qty: 60 4RF Referrals Follow up/Referrals: Sushil DELEON MD [Primary Care Provider] - See instructions Clinical Impressions Clinical Impression: Septic shock, Acute renal failure, Acute hyperkalemia, Acute hypoxemic respiratory failure, Lactic acidosis, CHF exacerbation, Cardiac arrest Print Language Print Language: Icelandic Discharge ED Provider: Adelfo eSxton General Adult HPI General Chief complaint: Weakness Stated complaint: lethargic, weak, unable to stand Time Seen by Provider: 10/05/24 19:36 Mode of Arrival: Wheelchair Source of Information: Relative Description of Symptoms (Recalled from ER Triage Doc. by RN): caregiver reports that for the past two weeks she has been overall feeling unwell and had a decreased appetite, pt was seen by family doctor and has not seen any improvement. caregiver reports that today she became weaker and nonambulatory. History of Present Illness HPI narrative: Please note that above description of symptoms, in this electronic medical record under categorization of recalled from ER triage doctor by RN are reflective of an initial nursing assessment, however, is not reflective of my full history and physical exam that was personally taken and clarified. Consequentially, this preceding description of symptoms, which may include the patient's categorized chief complaint in the EMR, do not reflect my personal clinical impression, and the ultimate description of history of present illness and patient stated complaints should be deferred to this section of the note. Unless stated otherwise or congruent with this section of the note, additional signs, symptoms, or incongruence should be interpreted as inaccurate with my clinical impression. Related Data Home Medications ?Medication ?Instructions ?Recorded ?Confirmed albuterol sulfate 90 mcg/actuation 1 inh inhalation Q4HP PRN 03/31/24 09/26/24 aerosol inhaler (Ventolin HFA) Shortness Of Breath ipratropium 0.5 mg-albuterol 3 mg 3 ml inhalation QIDP PRN shortness 03/31/24 09/26/24 (2.5 mg base)/3 mL nebulization of breath or wheezing soln trazodone 50 mg tablet 50 mg PO HS PRN 08/27/24 09/26/24 Previous Rx's ?Medication ?Instructions ?Recorded empagliflozin 10 mg tablet 10 mg PO DAILY 90 days #90 tabs 02/23/24 (Jardiance) escitalopram oxalate 10 mg tablet 10 mg PO DAILY #90 tabs 03/30/24 (Lexapro) carvedilol 3.125 mg tablet 3.125 mg PO BID 30 days #60 tabs 04/01/24 furosemide 40 mg tablet 40 mg PO BIDL 30 days #60 tabs 04/01/24 rimegepant 75 mg disintegrating 75 mg PO ONCE PRN migraine 04/26/24 tablet (Nurtec ODT) headache #10 tabs dextromethorphan 20 mg-quinidine 1 cap PO BID #60 caps 06/08/24 10 mg capsule (Nuedexta) irbesartan 75 mg tablet 75 mg PO DAILY 30 days #30 tabs 06/13/24 spironolactone 25 mg tablet 25 mg PO BID #60 tabs 06/21/24 divalproex 500 mg tablet,delayed 500 mg PO TID #90 tabs 07/12/24 release clonazepam 1 mg tablet 0.5 mg (1/2 x 1 mg) PO BIDP PRN 07/31/24 Anxiety #30 tabs clonazepam 0.5 mg tablet (Klonopin) 0.5 mg PO BID #60 tabs 08/03/24 gabapentin 300 mg capsule 300 mg PO TID #90 caps 08/03/24 omeprazole 20 mg capsule,delayed 20 mg PO DAILY #30 caps 08/13/24 release ipratropium 0.5 mg-albuterol 3 mg 3 ml inhalation QID PRN shortness 08/20/24 (2.5 mg base)/3 mL nebulization of breath or wheezing 90 days #270 soln mL bupropion HCl 300 mg 24 hr tablet, 300 mg PO DAILY #90 tabs 09/10/24 extended release risperidone 0.5 mg tablet 0.5 mg PO BID #60 tabs 10/02/24 (Risperdal) Allergies Allergy/AdvReac Type Severity Reaction Status Date / Time No Known Drug Allergies Allergy Verified 09/26/24 13:53 [facility] Disclaimer: The information contained in this section may have been updated after the patient was seen, as this information can be updated by other users. Medical History Abnormal ankle brachial index (JOSE) Intermittent claudication C. difficile diarrhea CHF exacerbation Acute on chronic heart failure with preserved ejection fraction (HFpEF) Tobacco dependence Chronic bilateral pleural effusions Acute on chronic respiratory failure with hypoxia and hypercapnia Acute exacerbation of chronic obstructive pulmonary disease Intellectual disability with epilepsy Emphysema lung Acute hypoxic respiratory failure Injury of left lower leg Injury of right forearm Falls frequently CHF exacerbation Acute exacerbation of chronic obstructive pulmonary disease Low O2 saturation Hypoxia Arthritis of foot, degenerative History of recent fall COPD exacerbation Fatigue Daytime somnolence Snoring Weakness Neuropathic pain CTS (carpal tunnel syndrome) Pleural effusion on right Pneumonia Tubular adenoma of colon Tobacco use smoking cessation discussed Breast calcification seen on mammogram Constipation Diminished pulses in lower extremity Leg numbness Chronic asthmatic bronchitis Closed nondisplaced fracture of fifth metatarsal bone of left foot with routine healing Avulsion fracture Respiratory failure with hypercapnia Right lower lobe pneumonia Encounter for general medical examination Lower GI bleeding Abnormal laboratory test result Asthma exacerbation in COPD Acute chest wall pain Pneumonia UTI (urinary tract infection) Recurrent pneumonia Acute viral syndrome Abnormal electrocardiogram [ECG] [EKG] Cough Diarrhea REYMUNDO (obstructive sleep apnea) (HFpEF) heart failure with preserved ejection fraction Oxygen dependent Neuropathy Smoking greater than 30 pack years Mediastinal lymphadenopathy Pulmonary embolism Dyspnea on exertion Acute diastolic CHF (congestive heart failure) Pulmonary hypertension Hilar lymphadenopathy Pleural effusion on right Pneumonia Anxiety disorder Seizure disorder Mood disorder Incontinence INCONTINENCE AT TIMES History of COVID-19 Asthma History of gastroesophageal reflux (GERD) Allergies Depression Anxiety Urinary tract infection Migraine COPD (chronic obstructive pulmonary disease) Hyperlipidemia Hypertension Surgical History History of colonoscopy History of breast biopsy History of hysterectomy History of cholecystectomy Family History Father Lung cancer Sister Ovarian cancer Kidney disease Lung cancer Mother Kidney disease Other Family history of diabetes mellitus type II Family history of hyperlipidemia Family history of hypertension Family history of migraine headaches Family history of myocardial infarction Social History (Updated 09/26/24 @ 13:55 by Kandy Gandara MA) Smoking Status: Former smoker tobacco type: cigarettes packs per day: 1 alcohol intake: never counseling provided: none substance use type: denies use current occupational status: disabled Travel in the last 8 weeks: None caregiver/support person: Yes household members: caregiver housing: assisted living facility lives independently: No do you feel safe at home: Yes victim of physical abuse: No victim of emotional abuse: No victim of sexual abuse: No would you like helpful sources: No Other Medical History Have you received the Flu Vaccine for this season: No Have you received the Pneumonia Vaccine: No ROS Obtained: Yes All systems reviewed & no additional complaints except as documented Physical Exam General General appearance: alert, obese and other (Very clinically ill-appearing) Head Head exam: atraumatic and normocephalic Eye Eye exam: Present normal appearance, PERRL and EOMI ENT ENT exam: Present mucous membranes dry Neck Neck exam: Present normal inspection, full ROM and trachea midline Respiratory Respiratory exam: Present other (Decreased sounds throughout, mildly tachypneic); Absent respiratory distress, wheezes, stridor, accessory muscle use or prolonged expiratory phase Cardiovascular Cardiovascular exam: Present normal rhythm, bradycardia and other (Pulses equal symmetric in upper and lower extremities) Abdominal Exam Abdominal exam: Present soft; Absent distention, tenderness or pulsatile mass Extremities Exam Extremities exam: Absent edema Neurological Exam Neurological exam: Present alert, oriented X3 and CN II-XII intact; Absent motor sensory deficit Skin Skin exam: Present dry and pallor; Absent diaphoresis or erythema Medical Decision Making Medical Records Medical records reviewed: Yes I reviewed the patient's medical records. Screening: Per USPSTF and CDC recommendations, given the prevalence of disease in our region, it is our hospital?s policy to screen for HIV and viral Hepatitis for all patients aged 18 and over and those with ongoing risk factors. Vlad Inquiry Pt receiving controlled substance: No Vlad was queried for this patient: No Vital Signs: 10/05/24 19:34 10/05/24 19:41 10/05/24 20:47 Temperature 97.1 F L 96.9 F L Temperature Source Temporal Artery Scan Rectal Pulse Rate 80 Pulse Rate [Right] 57 L Respiratory Rate 22 38 H Blood Pressure 149/124 H Blood Pressure [Right Arm] 133/111 H Blood Pressure Mean Blood Pressure Mean [Right Arm] 118 02 Sat by Pulse Oximetry 86 L 100 Oxygen Delivery Method Room Air Nasal Cannula Oxygen Flow Rate (LPM) 5 10/05/24 20:52 10/05/24 20:58 10/05/24 21:08 Temperature Temperature Source Pulse Rate 72 68 71 Pulse Rate [Right] Respiratory Rate 23 39 H 48 H Blood Pressure 103/84 L 113/89 127/108 H Blood Pressure [Right Arm] Blood Pressure Mean Blood Pressure Mean [Right Arm] 02 Sat by Pulse Oximetry 98 98 97 Oxygen Delivery Method Nasal Cannula Nasal Cannula Nasal Cannula Oxygen Flow Rate (LPM) 5 5 5 10/05/24 21:11 10/05/24 21:16 10/05/24 21:18 Temperature Temperature Source Pulse Rate 71 73 67 Pulse Rate [Right] Respiratory Rate 42 H 27 H 34 H Blood Pressure 61/32 L 70/35 L 69/37 L Blood Pressure [Right Arm] Blood Pressure Mean Blood Pressure Mean [Right Arm] 02 Sat by Pulse Oximetry 97 96 97 Oxygen Delivery Method Nasal Cannula Nasal Cannula Nasal Cannula Oxygen Flow Rate (LPM) 5 5 5 10/05/24 21:20 10/05/24 21:24 10/05/24 21:24 Temperature Temperature Source Pulse Rate 87 85 Pulse Rate [Right] Respiratory Rate 27 H 24 Blood Pressure 57/34 L 67/27 L 67/27 L Blood Pressure [Right Arm] Blood Pressure Mean 36 Blood Pressure Mean [Right Arm] 02 Sat by Pulse Oximetry 95 89 L Oxygen Delivery Method Nasal Cannula Nasal Cannula Nasal Cannula Oxygen Flow Rate (LPM) 5 5 5 10/05/24 21:25 10/05/24 21:30 Temperature Temperature Source Pulse Rate 64 134 H Pulse Rate [Right] Respiratory Rate 20 19 Blood Pressure 70/34 L 74/43 L Blood Pressure [Right Arm] Blood Pressure Mean Blood Pressure Mean [Right Arm] 02 Sat by Pulse Oximetry 87 L 81 L Oxygen Delivery Method Nasal Cannula Nasal Cannula Oxygen Flow Rate (LPM) 5 5 Lab Data Lab Results 10/05/24 20:01: WBC 12.5 H, RBC 3.67 L, Hgb 9.2 L, Hct 31.3 L, MCV 85.3, MCH 25.1 L, MCHC 29.4 L, RDW 18.1 H, Plt Count 196, MPV 11.5 H, Neut % (Auto) 82.7 H , Lymph % (Auto) 8.3 L, Green % (Auto) 8.2, Eos % (Auto) 0.0 L, Baso % (Auto) 0.2, Neut # (Auto) 10.4 H, Lymph # (Auto) 1.0, Green # (Auto) 1.0, Eos # (Auto) 0.0, Baso # (Auto) 0.0, PT 14.3 H, INR 1.31 H, APTT 30.5, Sodium 129 L, P otassium 6.5 H*, Chloride 89 L, Carbon Dioxide 21 L, Anion Gap 25.5 H, BUN 89 H, Creatinine 5.10 H, Estimated Creat Clear 15, Estimated GFR 9 L*, Est GFR ( Amer) 11 L*, Glucose 59 L, Lactate 6.4 H, Calcium 7.7 L, Magnesium 2.7 H, Total Bilirubin 0.4, AST 54 H, ALT 54, Alkaline Phosphatase 85, Troponin I 0.03, NT-Pro-B Natriuret Pep 4980 H, Total Protein 6.2 L, Albumin 3.1 L, Globulin 3.1, Albumin/Globulin Ratio 1.0 L, Procalcitonin 1.12, TSH 7.62 H, Thyroxine (T4) 7.2 10/05/24 20:10: VBG pH 7.31, VBG pCO2 41.9, VBG pO2 60.7 H, VBG HCO3 20.7 L, VBG Total CO2 22.0 L, VBG O2 Saturation 88.2 H, VBG Base Excess -5.5 L, VBG Lactic Acid 5.2 H 10/05/24 22:28: POC Glucose 150 H 10/05/24 20:01 10/05/24 20:01 Orders (Tests/Meds): ED MEDICATIONS Generic Name Dose Route Start Last Admin Trade Name Freq PRN Reason Stop Dose Admin Calcium Gluconate/Sodium Chloride 2 gm in 100 mls @ 50 mls/hr 10/05/24 21:10 Calcium Gluconate 2,000mg/100ml Nacl Premix IV 10/05/24 23:09 ONCE ONE Lactated Ringer's 2,180 mls @ 1,090 mls/hr 10/05/24 21:10 Lactated Ringer's 1000 Ml Bag 30 ml/kg infuse over 2 hr (2180 ml) 10/05/24 23:09 IV .Q2H ONE Norepinephrine/Dextrose 8 mg in 250 mls @ 3.75 mls/hr 10/05/24 21:16 Levophed 8mg/250ml-D5w Premix IV 11/04/24 21:15 .Q24H [facility] Protocol 2 MCG/MIN Propofol 100 mls @ 2.177 mls/hr 10/05/24 22:16 Diprivan 10mg/Ml 100ml Bottle IV 11/04/24 22:15 .Q24H [facility] Protocol 5 MCG/KG/MIN Vasopressin 40 unit/ Sodium 102 mls @ 1.53 mls/hr 10/05/24 22:17 Chloride IV 11/04/24 22:16 .Q24H [facility] Protocol 0.01 UNITS/MIN Miscellaneous 1 each 10/05/24 19:45 10/05/24 19:48 Vancomycin Consult Request NOTAPPLIC 11/04/24 19:44 1 each CONSULT PHARMACY [facility] Administration Sodium Chloride 3 ml 10/05/24 22:26 Sodium Chloride 3% 15ml Neb IH 11/04/24 22:25 ONCE PRN INDUCE SPUTUM COLLECTION Discontinued Medications Generic Name Dose Route Start Last Admin Trade Name Caitlyn PRN Reason Stop Dose Admin Dextrose 50 ml 10/05/24 20:13 10/05/24 20:19 Dextrose 50% 50ml Syringe (Crash Cart) IVP 10/05/24 20:14 50 ml ONCE ONE Administration Dextrose 50 ml 10/05/24 22:23 Dextrose 50% 50ml Syringe (Crash Cart) IVP 10/05/24 22:24 ONCE ONE Hydrocortisone Sodium Succinate 100 mg 10/05/24 22:16 Hydrocortisone Sod Succinate 100mg Vial IV 10/05/24 22:17 ONCE ONE Piperacillin Sod/Tazobactam 100 mls @ 200 mls/hr 10/05/24 19:36 10/05/24 20:09 Sod 4.5 gm/ Sodium Chloride IV 10/05/24 20:05 200 mls/hr ONCE ONE Administration Lactated Ringer's 1,000 mls @ 999 mls/hr 10/05/24 19:40 10/05/24 19:43 Lactated Ringer's 1000 Ml Bag IV 10/05/24 20:40 999 mls/hr .Q1H1M ONE Administration Vancomycin/PEG/NADA/Lysine/Water 1.5 gm in 300 mls @ 150 mls/hr 10/05/24 20:00 10/05/24 20:09 Vancomycin 1.5gm/300ml (Peg) Premix IV 10/05/24 21:59 150 mls/hr ONCE ONE Administration Insulin Human Regular 8 unit 10/05/24 22:23 Insulin Human Regular 100 Units/Ml 10ml Vial IV 10/05/24 22:24 ONCE ONE Midazolam HCl 5 mg 10/05/24 22:16 Midazolam 5mg/Ml 1ml Vial IV 10/05/24 22:17 ONCE ONE ORDERS Category Date Time Status CT abdomen pelvis wo con Stat Cat Scan 10/05/24 21:[address] chest wo con Stat Cat Scan 10/05/24 21:15 Ordered Chest XR -- portable [XR chest portable] Stat Exams 10/05/24 21:00 Completed XR chest portable Stat Exams 10/05/24 19:36 Completed XR chest portable Stat Exams 10/05/24 22:28 Taken CMP [Comprehensive Metabolic Panel] Stat Lab 10/05/24 22:36 Received Complete Blood Count Auto Diff Stat Lab 10/05/24 20:01 Completed Comprehensive Metabolic Panel Stat Lab 10/05/24 20:01 Completed Lactic Acid Stat Lab 10/05/24 20:01 Completed Magnesium Stat Lab 10/05/24 20:01 Completed NT Pro Brain Natriuretic Pep. Stat Lab 10/05/24 20:01 Completed POC Glucose,Bedside Routine Lab 10/05/24 22:28 Completed PT INR [Prothrombin Time INR] Stat Lab 10/05/24 20:01 Completed PTT [Activated Partial Thrombo Time] Stat Lab 10/05/24 20:01 Completed Procalcitonin Stat Lab 10/05/24 20:01 Completed T4 (Thyroxine) Stat Lab 10/05/24 20:01 Completed TSH [Thyroid Stimulating Hormone] Stat Lab 10/05/24 20:01 Completed Troponin I Q3H Lab 10/05/24 22:43 Received Troponin I Q3H Lab 10/06/24 01:45 Ordered Troponin I Stat Lab 10/05/24 20:01 Completed Urinalysis and Microscopic Stat Lab 10/05/24 22:45 Received Blood Culture Stat Micro 10/05/24 20:23 Ordered Sputum Culture & Gram Stain Stat Micro 10/05/24 22:23 Received VBG [Venous Blood Gas] Stat RT 10/05/24 20:10 Completed Medical Decision Narrative: 53-year-old female who is acutely ill-appearing presenting with shortness of breath and weakness. Patient states that she has been feeling short of breath for 5 or 6 days. Family at bedside corroborating story. Patient went to family doctor, but unable to get into the office, so came here. Patient has been coughing, but has been nonproductive. Generally weak, largely unable to walk or perform any of her ADLs. No vomiting, diarrhea. Minimal p.o. intake. History was obtained via conversation with patient and family. On arrival, patient hemodynamically stable, alert, oriented x4, appropriate, GCS 15, moving all extremities spontaneously, pupils equal and reactive to light. Full physical exam performed and significant for pale, nondiaphoretic, but skin is cool. Bradycardic, lungs without wheezes, but they are diminished throughout. Mildly tachypneic. No lower extremity edema. Abdomen is soft, nontender, nondistended. Differential includes sepsis, pneumonia, urinary tract infection, metabolic abnormality, endocrinologic abnormality, ACS, PR, cardiogenic shock, among others. Patient placed on continuous cardiac monitoring and continuous pulse ox with initial blood pressure 133/111, heart rate 57, saturation 86% on room air, placed on nasal cannula 2 L. Patient hypothermic 97.1 ?F orally. Independent interpretation of EKG shows what appears to be A-fib with RVR 138 bpm with QRS 105, QTc 384. ST depressions in septal leads, T wave inversions in inferior leads, no reciprocal elevations. Incomplete right bundle branch block morphology. [id number] glucose in the 40s, unable to obtain IV access, so 1 mg of IM glucagon was administered. 3 attempts were made at IV peripheral ultrasound and all were unsuccessful. Right internal jugular central line was placed under ultrasound guidance. 1 amp of D50 was given. Calcium gluconate also pushed. Patient was given empirically given vancomycin, Zosyn, and warmed IV fluids 1 L for symptomatic management and correction of underlying abnormalities. Full sepsis bolus also initiated. workup independently interpreted and significant for leukocytosis 12.5 with neutrophilia. Coags concerning for mildly elevated INR and early coagulopathy. Patient VBG with metabolic acidosis normal pH at 7.31, normal CO2 at 42, but bicarb low at 20 and a lactic acid 6.4. Chemistry concerning for hyponatremia 129, hyperkalemia 6.5, anion gap of 25 and acute renal failure with BUN 89 and creatinine 5.1. Calcium low at 7.7, magnesium normal at 2.7. BNP elevated at 4980. On independent interpretation of imaging, patient appears to have cardiomegaly and edematous fissure, bilateral pleural effusions. Pulmonary edema is present. Patient's pressure continued to drop, norepinephrine drip was started and patient was given 100 mg of hydrocortisone. Shortly after line being placed and meds being given, patient started complaining of shortness of breath. Said help me, over and over again trying to catch her breath. Multiple modalities were attempted, however patient mental status started to decline, so she was emergently intubated. Patient was pericode in the time surrounding the intubation, but blood pressure and heart rate stabilized out shortly after intubation. I remained in the room for a few minutes after intubation to ensure patient's stability. Patient became incredibly tachycardic greater than 200, then became bradycardic and end-tidal CO2 dropped to 0. Chest compressions were initiated. Multiple rounds of ACLS were performed and ultimately, ROSC was achieved and end-tidal in the 50s. Patient placed on propofol drip, given pressures, vasopressin was initiated. Patient remains in A-fib with RVR, rate started to increase 160s to 190s, patient was cardioverted and rates improved in the 1 teens. Blood pressure 90s over 60s. Multiple hospitals contacted, including [facility]. [facility] wanted to repeat labs prior to accepting patient in transport out of concern that hyperkalemia may cause patient to decompensate on the way to the hospital. Repeat labs were obtained, sodium improved to 131, potassium 5.8, creatinine 5.2 and BUN 83. Recommended another amp of bicarbonate, this was ordered. Because patient high risk for clinical decompensation if discharged, deemed appropriate for transfer and inpatient admission. Results were relayed to patient family who voiced understanding and patient was agreeable to transfer, inpatient admission, and management. Patient was graciously accepted and transferred to for further definitive management, under Dr. Barboza. Accounting Recruiter disclaimer Much of this encounter note is an electronic software developer manager spoken language to printed text. Electronic software developer manager of the spoken language may permit errors. Although I have reviewed the note, some errors may still exist. Procedures ABG Interpretation ABG Interpretation 1: ABG Results: 10/05/24 20:10 VBG pH 7.31 VBG pCO2 41.9 VBG pO2 60.7 H VBG HCO3 20.7 L VBG Total CO2 22.0 L VBG O2 Saturation 88.2 H VBG Base Excess -5.5 L Interpretation: metabolic acidosis Additional Comments: Lactic acidosis Intubation Mallampati Score:: Class IV Time out performed: Yes sedative: Etomidate Mg Given: 20 paralytic: Rocuronium Mg Given: 70 Laryngoscope: fiber optic video scope ET Tube Size: 7.5 ET Tube Uncuffed: Yes Tube Secured Depth (cm): 22 Tube Secured Location: teeth Tube Placement Confirmation: visualized tube passing through cords, equal breath sounds bilaterally, no breath sounds over epigastrium and confirmation by capnometry Patient Tolerated Procedure: well Intubation Complications: none Central Line Placement Right IJ: Time Out Performed: Yes Patient Placed on Monitor/Pulse Ox: Yes MD Prep: mask, gown and gloves Central Line Prep: Chlorhexidine scrub Local Anesthetic: lidocaine 1% Amount of anesthesia used (mL): 5 Ultrasound Used for Placement: Yes Central Line Lumen Inserted: triple Post Procedure: sutured in place, good blood return, all ports aspirated, flushed, capped and sterile dressing applied Post Procedure X-Ray: tip of catheter in good position and no pneumothorax seen Patient Tolerated Procedure: well Complications: none Limited Ultrasound Indication:: Ultrasound-guided line placement Indication: -Unable to obtain IV access peripherally Identified structures: -Right sided neck vessels Location/access site: -Right IJ Vessel patency: -Patent Direct visualization? -Yes Impression: Successful placement of triple-lumen catheter in right IJ under ultrasound guidance Images were not saved due to sterility to permanent archive The study was technically adequate CPT Codes: Venipuncture: 55247-75 Age <3 yo: 43406-31 Age >3yo: 36929-19 Central line <5 yo: 58554-80 Central line >5 yo: 22832-59 This study was performed by me, and I personally interpreted all images/videos. Based on my clinical judgement, these images were adequate and did not necessitate further imaging Miscellaneous Procedure Procedure Performed: Cardioversion: Patient in atrial fibrillation with RVR with exceedingly high rates 180s to 200s. Given hemodynamic instability, need for pressor support, cardioversion was performed. Patient already on sedation with propofol, 5 mg of Versed was also added. Synchronized, patient was cardioverted with 200 J with improvement of rates, blood pressure. Critical Care Critical Care Time Critical Care Time: Yes (Multisystem) Attestation: On 10/05/24, the high probability of a clinically significant, sudden or life threatening deterioration of the following system(s) required my full and direct attention, intervention and personal management. The time I documented below is in addition to time spent performing reported procedures but includes the following listed in this critical care notation. Total Time Total Critical Care Time: 240
[2024-10-05] MEDS: VANCOMYCIN CONSULT REQUEST 1 EACH NOTAPPLIC (19:48)
[2024-10-05] MEDS: VANCOMYCIN/WATER FOR INJ (PEG) 1.5 GM/300 ML PIGGYBACK IV (20:09)
[2024-10-05] MEDS: PIPERACILLIN/TAZO 4.5 GM in 0.9 % SODIUM CHLORIDE 100 ML IV (20:09)
[2024-10-05 20:11] LABS: VBG Base Excess -5.5 mmol/L (-2.4-2.3); VBG HCO3 20.7 mmol/L (23-30); VBG Oxygen Saturation 88.2 % (50-70); VBG PCO2 41.9 mmol/L (35-51); VBG PH 7.31 mmol/L (7.31-7.41); VBG PO2 60.7 mmol/L (28-40)
[2024-10-05 20:11] LABS: Basophils % 0.2 % (0.1-2.0); Hematocrit 31.3 % (37.0-47.0); Hemoglobin 9.2 g/dL (12.2-16.2); Lymphocytes % 8.3 % (10-50); Mean Corpuscular HGB Conc 29.4 g/dL (31.8-35.4); Mean Corpuscular Hemoglobin 25.1 pg (27.0-31.2); Mean Corpuscular Volume 85.3 fl (81-99); Mean Platelet Volume 11.5 fl (7.4-10.4); Monocytes % 8.2 % (1.7-9.3); Neutrophils # 10.4 K/mm3 (1.8-7.8); Neutrophils % 82.7 % (37.0-80.0); Platelet Count 196 K/mm3 (142-424); Red Blood Count 3.67 M/mm3 (4.20-5.40); Red Cell Distribution Width 18.1 % (11.5-17.5); White Blood Count 12.5 K/mm3 (4.8-10.8)
[2024-10-05 20:12] LABS: Lactate Venous 5.2 mmol/L (0.4-2.0)
--- NOTE | 2024-10-05 20:12 | ECG_ITS ---
APPROVED REPORT Exam: Resting ECG HR:138 bpm ECG Measurements Heart Rate 138 AXES QRSd 105 QRS 107 QT 303 T 11 QTc 384 Conclusion A-fib with RVR Incomplete right bundle branch block Electronically signed by : URSULA MARQUES, 10/06/2024 00:05:21
--- NOTE | 2024-10-05 20:15 | PC.NURSE ---
Critical labs called. aware
[2024-10-05] MEDS: DEXTROSE 50% 50ML SYRINGE (CRASH CART) 50 ML IVP (20:19)
--- NOTE | 2024-10-05 20:24 | PC.NURSE ---
1900hrs patient brought to the ED via wheelchair, three person assist to get this patient in the bed. 1925hrs attempted IV sticks on patient, Donny Munoz established a 20ga IV in patient L hand. 1944hrs patient started on 1L of LR through IV 1950hrs vancomycin consult on this patient. 1.5gm ordered 1954hrs patient moved to RM 7 2000hrs patient placed back on cardiac monitoring and 5lpm of O2 2014hrs a central placed in pts R IJ 2044hrs patient administered D50 through central line 2100hrs patient administered 4.5gm of Zosyn through central line 2109hrs patient administered 1L of LR 2114hrs patient placed on vanco at 175/hr VBTI is 300mL's 2122hrs patient placed on levophed due to BP of 57/34mmHg 2124hrs patient placed on 2nd Liter of LR. 2124hrs patient placed on calcium gluconate.
[2024-10-05 20:26] LABS: Activated Partial Thrombo Time 30.5 seconds (22.8-30.6)
[2024-10-05 20:28] LABS: INR 1.31 (0.9-1.1); Prothrombin Time 14.3 seconds (10.1-12.5)
[2024-10-05 20:34] LABS: Alanine Aminotransferase 54 U/L (12-78); Albumin Level 3.1 g/dl (3.5-5.0); Alkaline Phosphatase 85 U/L (38-126); Anion Gap 25.5 mEq/L (5-15); Aspartate Amino Transferase 54 U/L (14-36); Bilirubin,Total 0.4 mg/dl (0.2-1.3); Calcium 7.7 mg/dl (8.4-10.2); Carbon Dioxide 21 mmol/L (22.0-30.0); Chloride 89 mmol/L (98-107); Creatinine Clearance Estimated 15 mL/min (50-200); Estimated Glomerular Filt Rate 9 ml/min (>60); GFR (African American) 11 ML/MIN (>60); Globulin 3.1 g/dL (1.3-3.2); Glucose 59 mg/dl (74-100); Magnesium 2.7 mg/dl (1.6-2.3); Sodium 129 mmol/L (136-145); Total Protein,Serum 6.2 g/dl (6.3-8.2)
[2024-10-05 20:35] LABS: Blood Urea Nitrogen 89 mg/dl (7-17); Lactic Acid 6.4 mmol/L (0.7-2.1)
[2024-10-05 20:36] LABS: Potassium 6.5 mmoL/L (3.5-5.1)
[2024-10-05 20:44] LABS: NT Pro Brain Natriuretic Pep. 4980 pg/mL (0-125)
[2024-10-05 20:51] LABS: T4 (Thyroxine) 7.2 ug/dl (5.53-11.0)
[2024-10-05 20:52] LABS: Procalcitonin 1.12 ng/mL (0.0-2.0)
--- NOTE | 2024-10-05 21:00 | XR_ITS ---
PROCEDURE INFORMATION: Exam: XR Chest Exam date and time: 10/05/2024 9:02 PM Age: 53 years old Clinical indication: Device placement; Other: Line placement TECHNIQUE: Imaging protocol: Radiologic exam of the chest. Views: 1 view. COMPARISON: CR XR CHEST PORTABLE 10/05/2024 8:08 PM FINDINGS: Tubes, catheters and devices: Right IJ approach central venous catheter with tip in the right atrium.. Lungs: Bibasilar atelectasis. Possible mild pulmonary edema. Pleural spaces: Small bilateral pleural effusions. No pneumothorax. Heart/Mediastinum: Stable enlarged cardiac silhouette. Bones/joints: No acute osseous abnormality. IMPRESSION: 1. Placement of right IJ approach central venous catheter with tip in the right atrium, recommend retracting 7 cm. 2. No other change. Stable small bilateral pleural effusions.
[2024-10-05 21:05] LABS: Thyroid Stimulating Hormone 7.62 uIU/mL (0.465-4.68)
[2024-10-05] MEDS: LACTATED RINGERS 1090 ML IV (21:10)
[2024-10-05] MEDS: NOREPINEPHRINE BITARTRATE/D5W 8 MG/250 ML PLAST..BAG 37.5 MG IV (21:23)
[2024-10-05] MEDS: CALCIUM GLUC IN NACL, ISO-OSM 2 GM/100 ML BAG IV (21:25)
--- NOTE | 2024-10-05 21:29 | PC.NURSE ---
[facility] was called for possible transfer.
[2024-10-05 21:43] LABS: Troponin I 0.03 ng/ml (0.00-0.034)
[2024-10-05] MEDS: ETOMIDATE 40MG/20ML VIAL 20 MG IV (21:51)
[2024-10-05] MEDS: ROCURONIUM BROMIDE 50MG/5ML VIAL 70 MG IV (21:52)
[2024-10-05] MEDS: HYDROCORTISONE SOD SUCCINATE 100MG VIAL 100 MG IV (21:54)
[2024-10-05] MEDS: EPINEPHrine 0.1 MG/ML 10ML SYRINGE (CRASH CART) 1 MG IV ×2 (22:04→22:07)
[2024-10-05] MEDS: SODIUM BICARB 8.4% 50ML SYRINGE (CRASH CART) 50 MEQ IV (22:11)
[2024-10-05] MEDS: MIDAZOLAM 5MG/ML 1ML VIAL 5 MG IV (22:13)
--- NOTE | 2024-10-05 22:17 | PC.NURSE ---
[facility] called for transfer, PT coded while Dr. Sexton was talking to provider. Dr. Sexton is now speaking to provider again now that patient has a pulse.
--- NOTE | 2024-10-05 22:28 | XR_ITS ---
PROCEDURE INFORMATION: Exam: XR Chest Exam date and time: 10/05/2024 10:14 PM Age: 53 years old Clinical indication: Device placement; Ett placement (vent status); Additional info: Verify ett placement. TECHNIQUE: Imaging protocol: Radiologic exam of the chest. Views: 1 view. COMPARISON: CR XR CHEST PORTABLE 10/05/2024 9:02 PM FINDINGS: Tubes, catheters and devices: Endotracheal tube tip 0.9 cm above mitchell. Moise catheter tip projected over atrial caval junction. Lungs: Right interstitial prominence. Pleural spaces: Right pleural effusion. No pneumothorax. Heart/Mediastinum: Unremarkable. No cardiomegaly. Bones/joints: Unremarkable. Other findings: Significant compromise imaging secondary to overlying hardware. IMPRESSION: 1. Low-lying endotracheal tube. Consider retraction of 4-5 cm. 2. Right pleural effusion.
[2024-10-05 22:36] LABS: POC Glucose,Bedside 150 (70-110)
[2024-10-05 22:48] LABS: Microscopic, Urine URINE MICROSCOPIC (MICROSCOPIC)
[2024-10-05 22:59] LABS: Appearance,Urine CLEAR (Clear); Blood, Urine 3+ (Negative); Color,Urine YELLOW (Yellow); Glucose,Urine (UA) TRACE (Negative); Ketones,Urine Negative (Negative); Leukocyte Esterase,Urine Negative (Negative); Nitrate,Urine Negative (Negative); Protein,Urine 3+ (Negative); Specific Gravity, Urine >= 1.030 (1.005-1.030); Urobilinogen,Urine 0.2 EU/dl (0.2)
[2024-10-05 23:03] LABS: Albumin Level 3.1 g/dl (3.5-5.0); Chloride 91 mmol/L (98-107); Sodium 131 mmol/L (136-145)
[2024-10-05 23:04] LABS: Potassium 5.8 mmoL/L (3.5-5.1)
[2024-10-05 23:06] LABS: Alanine Aminotransferase 66 U/L (12-78); Alkaline Phosphatase 107 U/L (38-126); Aspartate Amino Transferase 81 U/L (14-36); Bilirubin,Total 0.4 mg/dl (0.2-1.3); Calcium 8.5 mg/dl (8.4-10.2); Carbon Dioxide 19 mmol/L (22.0-30.0); Creatinine Clearance Estimated 14 mL/min (50-200); Estimated Glomerular Filt Rate 9 ml/min (>60); GFR (African American) 10 ML/MIN (>60); Glucose 122 mg/dl (74-100); Total Protein,Serum 6.2 g/dl (6.3-8.2)
[2024-10-05 23:08] LABS: Anion Gap 26.8 mEq/L (5-15); Globulin 3.1 g/dL (1.3-3.2)
[2024-10-05 23:09] LABS: Blood Urea Nitrogen 83 mg/dl (7-17)
--- NOTE | 2024-10-05 23:10 | PC.NURSE ---
critical called by lab. notified
[2024-10-05] MEDS: IPRATROPIUM/ALBUTEROL 3 ML NEB 9 ML IH (23:11)
[2024-10-05 23:13] LABS: Bilirubin,Urine 1+ (Negative)
[2024-10-05 23:16] LABS: Bacteria,Urine 2+ /lpf; RBC,Urine 20-50 #/hpf (0-3); Squamous Epithelial Cell,Urine Occasional #/hpf (0-5); WBC,Urine Occasional #/hpf (0-3)
--- NOTE | 2024-10-05 23:19 | PC.NURSE ---
2131hrs titrated up to 20mcg/min of levophed. Pressure of 74/47mmHg. 2145hrs titrated up to 30mcg/min of levophed. Pressure of 74/43mmHg. 2150hrs verbal consent given to intubate. 2151hrs time out for intubation of patient. 2151hrs 20mg of Etomidate administered through central line. 2152hrs 70mgs of rocuronium administered through central line. 2153hrs patient intubated with 7.5mm ETT and 22cm @ the lip + color change of ETCO2 and breath sounds auscultated both done by MD Sexton 2154hrs Zoll Pads applied 2203hrs CODE BLUE initiated CPR. 2204hrs 1mg of Epi administered 2205hrs Pulse check- no pulse 2205hrs Autopulse applied but malfunctioned 2206hrs vancomycin stopped 2207hrs 1mg of Epi given 2208hrs Pulse check- no pulse 2209hrs 1g Calcium gluconate and 1L of NS administered. 2210hrs vassopressin started 2210hrs pulse check- ROSC achieved 2211hrs 50mEq of BiCarb administered 2213hrs 5mg of versed administered Thiago Staton NRP [id number]
[2024-10-05 23:26] LABS: Troponin I 0.02 ng/ml (0.00-0.034)
[2024-10-05 23:43] LABS: ABG Base Excess -1.9 mmol/L (-2.4-2.3); ABG HCO3 23.8 mmhg (22.0-26.0); ABG Oxygen Saturation 80 % (90-100); ABG PH 7.34 mmol/L (7.35-7.45); ABG PO2 50.8 mmhg (80-100); ABG TCO2 25.2 mmhg (23-27); Allen's Test Non Applicable; Oxygen 50 %; PEEP 5; Source Left Radial; Tidal Volume 400; Vent Rate 16
[2024-10-06] VITALS (25 sets, daily range): BP systolic 107–131; BP diastolic 72–81; PULSE 119–120; RESP 16; TEMP 36–36.2; O2SAT 93–99
[2024-10-06] MEDS: VASOPRESSIN 40 UNIT in 0.9 % SODIUM CHLORIDE 100 ML 61.2 UNIT IV (00:11)
[2024-10-06 00:12] LABS: Reflex Lactic Add Lactic Reflex
[2024-10-06] MEDS: propofoL 100 ML 2.18 MG IV (00:46)
--- NOTE | 2024-10-06 01:08 | PC.NURSE ---
Addendum entered by Vanessa Miller RN 10/06/24 01:58: after ROSC was achieved patient remained tachy. MD made decision to preform cardioversion. At 2251 5mg of versed administered for cardioversion. Zoll synchronized and shocked with 200 joules. cardioverison was successful. at 2245 temp sensing vallejo was palmed with sterile technique. Original Note: This RN and [place], Medic at bedside throughout interventions. MD also at bedside for ultrasound IV placement, no site found therefor central line placed in right IJ. Patient tolerated placement well approximately 30 mins after placement patient began desatting, MD notified and arrived at bedside, decision to intubate made. Patient verbally consented to intubation with this RN, and Brionna Greenfield. This RN gathered supplies and RSI medication kit. MD verbally ordered 20mg of etmoidate and 70mg of Rocuronium. This RN administered medications and intubation began at 215. Intubatation successful with MD confirming breath sounds and a positive color change at 2153. shortly after intubabtion patient became tachy in the 200s, zoll pads were then applied. at 2203 the pt lost pulse and CPR began. ROSC was achieved at 2210. pt was then stabilized with medication efforts. EMS contacted for transport to . PT left at 0106
--- NOTE | 2024-10-06 04:37 | PC.NURSE ---
85ml Propofol, 100ml Vasopressin, 240ml Norepinephrine wasted. Verified by Gin Carmona RN.
--- NOTE | 2024-10-07 15:24 | PC.NURSE ---
1505hrs- Contacted [facility] to speak with the nurse taking care of this patient. Nurse on the phone stated he was busy and would relay the message. Urine culture results were read back and faxed to this facility.
--- NOTE | 2024-10-08 11:21 | PC.NURSE ---
faxed facesheet to where pt was transferred per request
== END 2024-10-06 01:06 | disposition short-term general hospital (02) ==
PROVIDERS: Emergency Provider Emergency Medicine; PCP Family Medicine
DX: I46.9 Cardiac arrest, cause unspecified (principal); I50.20 Unspecified systolic (congestive) heart failure; E87.29 Other acidosis; J96.01 Acute respiratory failure with hypoxia; E87.5 Hyperkalemia; N17.9 Acute kidney failure, unspecified; A41.9 Sepsis, unspecified organism; R65.21 Severe sepsis with septic shock
CPT/HCPCS: 31500; 36415; 36556; 71045; 80053; 81001; 82803; 82962; 83605; 83735; 83880; 84145; 84436; 84443; 84484; 85025; 85610; 85730; 87040; 87070; 87086; 87088; 87186; 87205; 93005; 96361; 96365; 96375; 99291; 99292; C1751; J0171; J2250; J2543; J2704; J3372; J7120; J7620

== ENCOUNTER 2025-06-25 15:00 | Outpatient (CLI) | payer MEDICAID, SELFPAY ==
--- OUTSIDE RECORDS SUMMARY | 2024-11-14 07:37 | XMS_ITS | Encounter Summary ---
Author Organization [facility] ([place], [place], [place], [place], [place]) Address [address] [place] [address] Care Team Providers Care Booster Pump Oiler Name Role Phone Unavailable Primary Care Provider Unavailabl e Encounter Details Date Type Department Care Team (Late st Contact Info) Description 11/14/2024 8:37 AM EDT Hospital Encounter [address] [address] Awa Morales MD [address] [facility] [address] [place], [place] [id number] Social History Tobacco Use Types Packs/Day Years Used Date Smoking Tobacco: Former Cigarettes Smokeless Tobacco: Never Alcohol Use Standard Drinks/Week Comments Not Currently 0 (1 standard drink = 0.6 oz pur e alcohol) Utilities Answer Date Recorded In the past 12 months, has t he electric, gas, oil, or water company threatened to shut off services in your home? No 11/14/2024 Interpersonal Safety Answer Date Record ed How often does anyone, roxane carrasquillo family and friends, physically hurt you? Never 11/14/2024 How often does anyone, roxane carrasquillo family and friends, insult or talk down to you? Never 11/14/2024 How often does anyone, roxane carrasquillo family and friends, threaten you with harm? Never 11/14/2024 How often does anyone, roxane carrasquillo family and friends, scream or curse at you? Never 11/14/2024 Housing Stability Answer Date Recorded What is your living situation today? I have a [facility] place to live 11/14/[address] you li ve. Do you have problems with any of the following? None of the above 11/14/2024 Food Insecurity Answer Date Recorded Within the past 12 months, y ou worried that your food would run out before you got money to buy more. Never true 11/14/2024 Within the past 12 months, t he food you bought just didn't last and you didn't have money to get more. Never true 11/14/2024 Transportation Needs Answer Date Record ed In the past 12 months, has l ack of reliable transportation kept you from medical appointments, meetings, work or from getting things needed for daily living? No 11/14/2024 Financial Resource Strain Answer Date R ecorded How hard is it for you to pa y for the very basics like food, housing, medical care, and heating? Would you say it is: Not hard at all 11/14/2024 Employment Answer Date Recorded Do you want help finding or keeping work or a job? I do not need or want help 11/14/2024 Family and Community Support Answer Travis e Recorded If for any reason you need h elp with day-to-day activities such as bathing, preparing meals, shopping, managing finances, etc., do you get the help you need? I get all the help I need 11/14/2024 Feeling Lonely or Isolated 0 11/14 Educational Attainment Answer Date Jose rded Do you speak a language other than Filipino at [facility]? No 11/14/2024 Do you want help with school or training? For example, starting or completing job training or getting a high school diploma, GED or equivalent. No 11/14/2024 Physical Activity Answer Date Recorded Number of minutes of exercise per week 0 11/14/2024 Self Management Answer Date Recorded Because of a physical, menta l, or emotional condition, do you have serious difficulty concentrating, remembering, or making decisions? (5 years or older) Yes 11/14/2024 Because of a physical, menta l, or emotional condition, do you have difficulty doing errands alone such as visiting a doctor's office or shopping? (15 years or older) Yes 11/14/2024 Substance Use Answer Date Recorded How many times in the past y ear have you used prescription drugs for non-medical reasons? Never 11/14/2024 How many times in the past year have you used il legal drugs? Never 11/14/2024 Mental Health Answer Date Recorded Calculation of above two rows 0 Comments Unknown Sex and Gender Information Value Date Recorded Sex Assigned at Not on file Legal Sex Female 3:45 PM CDT Gender Identity Not on file Sexual Orientation Not on file documented as of this encounter Functional Status * Over the past 2 weeks, how often have you been bothered by any of the following problems? Question Answer Date of Assessment Author Little interest or pleasure in doing things Nearly every day 01/17/2025 11:48 AM Jenna Bartlett Feeling down, depressed, or hopeless Nearly every day 01/17/2025 11:48 AM Jenna Bartlett Patient Health Questionnaire -2 Score 6 01/17/2025 11:48 AM Jenna Bartlett documented as of this encounter Plan of Treatment Not on file documented as of this encounter Visit Diagnoses Not on filedocumented in this encounter Additional Health Concerns Infection Onset Date Last Indicated Resolved Time C. difficile 11/14/2024 11/14/2024 documented as of this encounter
--- OUTSIDE RECORDS SUMMARY | 2025-05-07 14:00 | XMS_ITS | Encounter Summary ---
Author Organization Healthcare Address [address] [place] [address] Care Team Providers Care Take Up Supervisor Name Role Phone Fernando Arias DO Primary Care Provider [phone] Reason for Visit * Reason Comments Consult * Consultation (Routine) - Closed Specialty Diagnoses / Procedures Referred By Contac t Referred To Contact Pulmonary Disease / Pulmonology Diagnoses Chronic obstructive pulmonary disease, unspecified COPD type (CMS/HCC) Tracheostomy status (CMS/HCC) Fernando Arias DO [address] [address] Phone: tel: fax: Referral ID Status Reason Start Date Expiration Date V isits Requested Visits Authorized [id number] Closed Specialty Services Required 01/24/2025 07/26/2026 1 1 Encounter Details Date Type Department Care Team ([facility] st Contact Info) Description 05/07/2025 3:00 PM EDT Office Visit [facility] [address] [facility] [address] [facility] [address] [facility], [address] [place] [address] Nikita Lai MD [address] [place] [address] Tracheostomy care (Primary Dx); Chronic obstructive pulmonary disease, unspecified COPD type (CMS/HCC) Social History Tobacco Use Types Packs/Day Years Used Date Smoking Tobacco: Former Cigarettes Smokeless Tobacco: Never Tobacco Cessation:Counseling Given: Not Answered Alcohol Use Standard Drinks/Week Comments Not Currently 0 (1 standard drink = 0.6 oz pur e alcohol) Comments Unknown Sex and Gender Information Value Date Recorded Sex Assigned at Not on file Legal Sex Female 9:11 AM EST Gender Identity Not on file Sexual Orientation Not on file documented as of this encounter Last Filed Vital Signs Vital Sign Reading Time Taken Comments Blood Pressure 116/77 05/07/2025 2:32 PM EDT Pulse 72 05/07/2025 2:32 PM EDT Temperature 37.4 C (99.3 F) 05/07/2025 2:32 PM EDT Respiratory Rate - - Oxygen Saturation 100% 05/07/2025 2:32 PM EDT Inhaled Oxygen Concentration - - Weight 94.7 kg (208 lb 12.4 oz) 05/07/2025 2:32 PM EDT Height 162.6 cm (5' 4 ) 05/07/2025 2:32 PM EDT Body Mass Index 35.84 05/07/2025 2:32 PM EDT documented in this encounter Miscellaneous Notes * Progress Notes - Nikita Lai MD - 05/07/2025 3:00 PM EDT NEW PULMONARY MEDICINE OUTPATIENT CONSULTATION: Patient ID: Maria Del Carmen Ardon Date of Service: 05/07/2025 Requestor: Fernando Arias DO Reason for Consult (Chief Complaint): COPD, tracheostomy care Subjective History of Present Illness: The patient is a 54 y.o. female, who presents to the clinic for consultation on COPD and tracheostomy care. PMH: COPD Chronic hypoxemic respiratory failure on LTOT even prior to her tracheostomy tube placement PEA cardiac arrest with pericardial effusion 10/06/2024, treated at . 11/02 pericardiocentesis was complicated by RV perforation. 1 month ICU stay and tracheostomy placement 10/26/2024 (Shiley 6 cuffed). A fib (on eliquis) HFpEF GERD Bipolar Intellectual disability (Her sister has been her durable HCPOA since her parents passed (7 yrs ago)) History of Present Illness The patient is a female who presents for tracheostomy management, COPD. She has been experiencing significant phlegm for the past 2 months, which led to several emergency room visits. During these visits, she was prescribed antibiotics and steroids due to a suspected mild pneumonia. However, these treatments did not alleviate her symptoms. She occasionally manages to speak a few words (but there is poor healthcare literacy as the patient has an intellectual disability and her sister who is her caregiver for the past 7 years also does not have a good understanding of tracheostomy care). Her tracheostomy tube has reportedly remained unchanged since its placement in09/2024. Of note, per OSH records, she was originally extubated 10/14/24, but had 2 episodes of suspected bronchospasm leading to reintubation. She therefore underwent trach placement 10/26/24. She receives her tracheostomy supplies from [facility] in [place], with the last change of inner cannula occurring yesterday (replaced every other day usually, per sister). She has been using a speaking valve intermittently since 12/2024, without issues. She has a suctionmachine at home, which is used frequently. She has not required hospitalization since 09/2024 and was discharged from a long-term care facility in 01/2025. She has been living at home since then, without any home health services. She was not using a wheelchair prior to 09/2024. She is gradually gaining her strength back. She reports no fevers, chills, night sweats, or unexpected weight loss. She had issues with a productive cough even before the tracheostomy was placed. She has had 3 AECOPD in the past year. She has been on oxygen for her COPD for about 2.5 years. She uses a Pulmicort nebulizer and DuoNeb twice daily. She remains connected to oxygen at home, typically at 3 liters, but this is increased to 5 liters when she experiences shortness of breath, which is infrequent. She has a learning disability from childhood illness and is unable to make her own medical decisions. Her sister has been caring for her for the past 7 years but does not have guardianship or [facility] power of estate attorney. She is mobile within her home, using a cane for support. SOCIAL HISTORY Tobacco: Smoked about 2 packs a day for 20 to 30 years, quit 2023. Recreational Drugs: Reports no drug use. FAMILY HISTORY - Father: Lung cancer, asthma as a child - Sister: Lung cancer Objective Allergies: Allergies[1] Medications: Medications Ordered Prior to Encounter[2] Physical Exam Lungs: Mild rhonchi noted bilaterally. Extremities: 1+ B/L LE pitting edema noted. Vital Signs: Blood pressure 116/77, pulse 72, temperature 37.4 ??C (99.3 ??F), temperature source Oral, height 1.626 m (5' 4 ), weight 94.7 kg (208 lb 12.4 oz), SpO2 100%. Constitutional: No acute distress, sitting in a chair HEENT: Normocephalic, atraumatic Neck: Neck was supple, symmetric, trachea midline Pulmonary: No increased work of breathing or signs of respiratory distress. Cardiovascular: Regular rate and rhythm. Normal S1 and S2, no murmurs. Extremities: No cyanosis. Results Laboratory Studies: I have personally reviewed and interpreted the labs in the EMR. Radiology Results: I have personally reviewed and interpreted the images in the EMR. 03/2025 CT Chest: There is a trace pericardial effusion. There are trace bilateral pleural effusions. There is consolidation in the subpleural right lower lobe, likely round atelectasis. There is a 4 mm nodule in thelateral right lower lobe, image 38. There is bibasilar atelectasis. Images requested. Pulmonary Function Testing: Unable to do due to tracheostomy. Assessment & Plan 1. Tracheostomy management. She has been experiencing increased secretions and difficulty with her speaking valve. A prescription for additional tracheostomy supplies will be sent to the pharmacy. A hospital admission is planned for Tuesday to initiate a capping trial and attempt tracheostomy tube removal, with an expected stay of at least 2 to 3 days. Sputum cultures and blood work will be ordered during her hospital stay. A CT scan of the chest will be requested from the previous hospital; if unavailable, a repeat scan will be conducted. A multi-ox test will be requested during the hospital stay in addition to labs (CBC/diff, IgE, BMP, VBG). 2. Chronic obstructive pulmonary disease (COPD). She uses Pulmicort nebulizer and DuoNeb twice daily. If the tracheostomy tube is successfully removed, she may switch back to inhalers for easier management. If unsuccessful, long-acting inhalers will be considered for 24-hour coverage (revefenacin, arformoterol, budesonide) 3. Learning disability. She has a learning disability from childhood illness and is unable to make her own medical decisions. Her sister has been caring for her for the past 7 years. Recommended the sister to meet with a child welfare director to arrange for healthcare power of estate attorney documentation or guardianship if appropriate. Preventive care: There is no immunization history on file for this patient. Assessment & Plan Tracheostomy care Orders: DME [place] supplies Chronic obstructive pulmonary disease, unspecified COPD type ([facility]/HCC) Nikita Lai M.D. Metal Can Inspector Pulmonary/Critical Care Medicine, [facility]. Approximately 75 minutes were spent reviewing pertinent medical/family/social history, review of systems, performing physical exam, clinically evaluating, interpreting labs/imaging, ordering necessary studies (i.e. medication, tests, procedures), counseling patient. This does not include time spentwith patient by nursing or clerical staff. Verbal consent was obtained to use ambient listening technology to assist in the documentation of the encounter: Yes [1] Allergies Allergen Reactions Banana Nausea Chocolate Nausea [2] Current Outpatient Medications on File Prior to Visit: acetaminophen, Take 0.5 tablets by mouth as needed. albuterol, Take 3 mL by nebulization 3 times a day. amiodarone, Take 1 tablet by mouth twice a day. apixaban, Take 1 tablet by mouth twice a day. budesonide, Inhale 2 mL daily. bumetanide, Take 1 tablet by mouth twice a day. ferrous sulfate, Take 1 tablet by mouth daily. gabapentin, Take 1 capsule by mouth 3 times a day. melatonin, 2 tablets by Nasogastric route daily as needed. (Patient taking differently: Take 2 tablets by mouth nightly.) oxyCODONE, Take 1 tablet by mouth as needed. pantoprazole, Take 1 tablet by mouth daily. risperiDONE, Take 1 tablet by mouth twice a day. rosuvastatin, Take 1 tablet by mouth daily. valproic acid, Take 1 capsule by mouth every 8 hours. documented in this encounter Plan of Treatment Upcoming Encounters Date Type Department Care Team (Late st Contact Info) Description 08/20/2025 11:40 AM EST Office Visit [facility] [address] [facility] [address] [facility], [address] [place] [address] Nikita Lai MD [address] [place] [address] documented as of this encounter Visit Diagnoses Diagnosis Tracheostomy care- Primary Attention to tracheostomy Chronic obstructive pulmonary disease, unspecified COPD type (CMS/HCC) documented in this encounter Additional Health Concerns Assessment Noted Time A fall risk assessment has been complete d for the patient 05/07/2025 2:59 PM EDT A Body Mass Index follow-up plan has been documented for the patient 05/07/2025 4:34 PM EDT documented as of this encounter Care Teams Take Up Supervisor Relationship Specialty Start Date End Date Fernando Arias DO [address] [place] [address] [address] [place] [address] PCP - General Producer Arborist Manager 01/29/25 documented as of this encounter
--- OUTSIDE RECORDS SUMMARY | 2025-05-14 12:56 | XMS_ITS | Encounter Summary ---
Author Organization Healthcare Address [address] [id number] Care Team Providers Care Residential Property Consultant Name Role Phone JuanaFernando Primary Care Provider [phone] Reason for Referral * Consultation (Routine) - Authorized Specialty Diagnoses / Procedures Referred By Carol johnson Referred To Contact Speech Pathology Diagnoses Encounter for attention to tracheostomy Jaylon Lovett MD [address] [place] [address] Phone: tel: fax: Referral ID Status Reason Start Date Expiration Date Visits Requested Visits Authorized [id number] Authorized Specialty Services Required 11/16/2026 1 1 Scheduling Instructions Tracheostomy / PM valve / dysphagia Reason for Visit * Auth/Cert (Routine) Specialty Diagnoses / Procedures Referred By Carol johnson Referred To Contact Diagnoses Encounter for attention to tracheostomy Lukas Darnell MD [address] [place] [address] Phone: tel: fax: [facility] Inpatient [address] [place] [address] Referral ID Status Reason Start Date Expiration Date Visits Re quested Visits Authorized [id number] 1 1 Encounter Details Date Type Department Care Team (Latest Contact Info) Description 05/14/2025 1:56 PM EDT - 05/17/2025 7:20 PM EDT Hospital Encounter [facility] Inpatient [address] [place] [address] Julio Dean MD [address] [place] [address] Lukas Darnell MD [address] [place] [address] Jaylon Lovett MD [address] [place] [address] Encounter for attention to tracheostomy (Primary Dx); Bronchitis Discharge Disposition: Home or Self Care Social History Tobacco Use Types Packs/Day Years Used Date Smoking Tobacco: Former Cigarettes Smokeless Tobacco: Never Alcohol Use Standard Drinks/Week Comments Not Currently 0 (1 standard drink = 0.6 oz pur e alcohol) Humiliation, Afraid, Rape, and Kick questionnair e Answer Date Recorded Within the last year, have y ou been afraid of your partner or ex-partner? No 05/15/2025 Within the last year, have y ou been humiliated or emotionally abused in other ways by your partner or ex-partner? No Within the last year, have y ou been kicked, hit, slapped, or otherwise physically hurt by your partner or ex-partner? No 05/15/2025 Within the last year, have y ou been raped or forced to have any kind of sexual activity by your partner or ex-partner? No 05/15/2025 Hunger Vital Sign Answer Date Recorded Within the past 12 months, y ou worried that your food would run out before you got the money to buy more. Sometimes true Within the past 12 months, t he food you bought just didn't last and you didn't have money to get more. Sometimes true PRAPARE - Transportation Answer Date Re corded In the past 12 months, has l ack of transportation kept you from medical appointments or from getting medications? No 05/01 In the past 12 months, has l ack of transportation kept you from meetings, work, or from getting things needed for daily living? No 05/15/2025 Housing Stability Vital Sign Answer Travis e Recorded In the last 12 months, was t here a time when you were not able to pay the mortgage or rent on time? Yes 05/15/2025 In the past 12 months, how m any times have you moved where you were living? 0 05/15/2025 At any time in the past 12 m onths, were you homeless or living in a detention (including now)? No 05/15/2025 [facility] Utilities Answer Date Recorded In the past 12 months has [facility] [employer], gas, oil, or water company threatened to shut off services in your home? Yes 05/15/2025 Comments Unknown Sex and Gender Information Value Date Recorded Sex Assigned at Not on file Legal Sex Female 9:11 AM EST Gender Identity Not on file Sexual Orientation Not on file documented as of this encounter Last Filed Vital Signs Vital Sign Reading Time Taken Comments Blood Pressure 119/72 05/17/2025 7:58 AM EDT Pulse 70 05/17/2025 2:46 PM EDT Temperature 36.4 C (97.5 F) 05/17/2025 7:58 AM EDT Respiratory Rate 15 05/17/2025 2:46 PM EDT Oxygen Saturation 96% 05/17/2025 2:46 PM EDT Inhaled Oxygen Concentration - - Weight 94.7 kg (208 lb 12.4 oz) 05/16/2025 2:00 PM EDT Height 162.6 cm (5' 4.02 ) 05/16/2025 2:00 PM EDT Body Mass Index 35.82 05/16/2025 2:00 PM EDT documented in this encounter Functional Status * Calculated C-SSRS Risk Score (Lifetime/Recent) Answer Date of Assessment Author No Risk Indicated 05/17/2025 7:00 AM EDT Yaw Okeefe RN * Question Answer Date of Assessment Author 1. Wish to be (Past 1 Month) No 7:00 AM EDT Yaw Okeefe, RN 2. Non-Specific Active Suici zeus Thoughts (Past 1 Month) No 05/17/2025 7:00 AM EDT Va Okeefe RN 6. Suicidal Behavior (Lifetime) No 7:00 AM EDT Yaw Okeefe, RN documented as of this encounter Medications at Time of Discharge amiodarone (Pacerone) 200 MG tablet Take 1 tablet by mouth twice a day. 01/17/2025 apixaban (Eliquis) 5 MG tablet Take 1 tablet by mouth twice a day. 10/31/2024 arformoterol (Brovana) 15 MCG/2ML nebulizer solution Take 2 mL by nebulization 2 times a day. 120 mL 2 05/17/2025 budesonide (Pulmicort) 0.5 MG/2ML nebulizer solution Take 2 mL by nebulization 2 times a day. 60 mL 5 05/17/2025 6 bumetanide (Bumex) 2 MG tablet Take 1 tablet by mouth twice a day. 03/18/2025 ferrous sulfate 325 (65 Fe) MG EC tablet Take 1 tablet by mouth daily. 01/17/2025 ipratropium-albu terol (Duo-Neb) 0.5-2.5 mg/3 mL nebulizer solution Take 3 mL by nebulization every 6 hours as needed for wheezing. Continue Duoneb until Brovana (arformoterol) and Yupelri (revefenacin) are available. 180 mL 5 05/17/2025 Melatonin 10 MG tablet Take 1 tablet by mouth at night as needed. pantoprazole (Protonix) 40 MG EC tablet Take 1 tablet by mouth daily. 02/25/2025 revefenacin (Yupelri) 175 MCG/3ML nebulizer solution Take 3 mL by nebulization daily. 90 mL 5 05/17/2025 risperiDONE (RisperDAL) 2 MG tablet Take 1 tablet by mouth twice a day. 01/17/2025 rosuvastatin (Crestor) 10 MG tablet Take 1 tablet by mouth daily. sodium chloride 3 % nebulizer solution Take 3 mL by nebulization 2 times a day. 750 mL 12 05/17/2025 valproic acid (Depakene) 250 MG capsule Take 2 capsules by mouth every 8 hours. sulfamethoxazole -trimethoprim (Bactrim DS) 800-160 MG tabletIndication s:Bronchitis Take 1 tablet by mouth 2 times a day for 7 days. 14 tablet 05/17/2025 5 documented as of this encounter Miscellaneous Notes * Discharge Summary - Lovett, Jaylon S, MD - 05/17/2025 4:51 PM EDT Hospitalization Admit Date/Time: 05/14/2025 1:56 PM Admitting Attending: Lukas Darnell Discharge Date: 05/17/25 Discharge Attending Physician: Jaylon Lovett MD PCP name and Address: Fernando Arias DO [address] [place] [address] Referring provider name and address: No referring provider defined for this encounter. Chief Concern, Brief History of Present Illness, and Hospital Course Nestor Ardon is a 54 y.o. female presenting with PMH of COPD, cardiac arrest in September 2024 with AHRF needing tracheostomy, Afib on eliquis, CHF, intellectual disability was sent in Pulmonology clinic for tracheostomy decannulation. She had significant cough and copious secretions. She was admitted for further workup and to optimize her respiratory status with the hope of decannulating her thisadmission. Chronic hypoxic/hypercarbic respiratory failure with h/o COPD Bronchitis Tracheostomy dependence -Currently on 5L humidifed trach collar O2 -VBG with PH 7.44, PCO2 67 and bicab 45 (41 on BMP). Likely mixed chronic resp acidosis with contraction metabolic alkalosis -Resp GS and cx with mixed organsims GPC pairs, GNR, diplococci Plan: Pt with an high risk condition which is a threat to life and bodily function. Will admit to inpatient Pulmonology team consulted. RT to start capping trials for decannulation Home albuterol and budesonide nebs continued Will get CXR to evaluate for any opacities. The resp cx could be contaminant VIRTUAL ASSISTANT consulted for passy daxa valve: Recommend continued use of PMSV w/ VIRTUAL ASSISTANT only at this time. Refer for VIRTUAL ASSISTANT therapy for speech and dysphagia with HH. Failed trach capping trial. Have added hypertonic saline nebs. We reattempted capping trial and failed Trach was exchanged. Pulmonary recommends: Recommendations: - Change to nasal canula O2 when capping trial being performed - Start 7 day course of PO Levaquin - Discharge with revefenacin daily, arformoterol bid, budesonide 0.5 mg bid, hypertonic saline bid,albuterol q6h prn and Cough assist - Will follow-up with Dr. Lai in [facility] pulmonary clinic in 2-3 months after discharge Hypocalcemia: Ionized kenisha 4.2. this could be related to diuretic use and metabolic alkalosis Metabolic alkalosis Likely due to chronic diuretic use Bumex decreased to 2mg daily. Continue to monitor BMP Other chronic problems: #CHF: s/p cardiac arrest. Last Echo in chart from 2021 with normal EF. But her arrest was 2024. Currently not in acute HF exacerbation. home bumex dose 2mg BID. But due to contraction alkalosis decreased to 2mg daily # Afib - s/p cardioversion at - Continue Eliquis 5mg BID and Amiodarone 200mg # HLD - Continue Crestor # Bipolar disorder: Continue home risperidone and VPA # Intellectual disability - lives with sister Venous thromboembolism prophylaxis Patient on apixaban Code Status Full Code Surgeries and Procedures Procedures performed in this encounter Procedures Tracheostomy Replacement Medication List .. amiodarone 200 MG tablet Commonly known as: Pacerone Take 1 tablet by mouth twice a day. apixaban 5 MG tablet Commonly known as: Eliquis Take 1 tablet by mouth twice a day. arformoterol 15 MCG/2ML nebulizer solution Commonly known as: Brovana Take 2 mL by nebulization 2 times a day. budesonide 0.5 MG/2ML nebulizer solution Commonly known as: Pulmicort Take 2 mL by nebulization 2 times a day. bumetanide 2 MG tablet Commonly known as: Bumex Take 1 tablet by mouth twice a day. ferrous sulfate 325 (65 Fe) MG EC tablet Take 1 tablet by mouth daily. ipratropium-albuterol 0.5-2.5 mg/3 mL nebulizer solution Commonly known as: Duo-Neb Take 3 mL by nebulization every 6 hours as needed for wheezing. Continue Duoneb until Brovana (arformoterol) and Yupelri (revefenacin) are available. Melatonin 10 MG tablet Take 1 tablet by mouth at night as needed. pantoprazole 40 MG EC tablet Commonly known as: Protonix Take 1 tablet by mouth daily. revefenacin 175 MCG/3ML nebulizer solution Commonly known as: Yupelri Take 3 mL by nebulization daily. risperiDONE 2 MG tablet Commonly known as: RisperDAL Take 1 tablet by mouth twice a day. rosuvastatin 10 MG tablet Commonly known as: Crestor Take 1 tablet by mouth daily. sodium chloride 3 % nebulizer solution Take 3 mL by nebulization 2 times a day. sulfamethoxazole-trimethoprim 800-160 MG tablet Commonly known as: Bactrim DS Take 1 tablet by mouth 2 times a day for 7 days. valproic acid 250 MG capsule Commonly known as: Depakene Take 2 capsules by mouth every 8 hours. Where to Get Your Medications These medications were sent to [facility] - [place], [place] - [address] [facility] [id number] arformoterol 15 MCG/2ML nebulizer solution budesonide 0.5 MG/2ML nebulizer solution ipratropium-albuterol 0.5-2.5 mg/3 mL nebulizer solution revefenacin 175 MCG/3ML nebulizer solution sodium chloride 3 % nebulizer solution sulfamethoxazole-trimethoprim 800-160 MG tablet Discharge Diagnosis Medical Problems Active and Resolved Hospital Problems Hospital * (Principal) Encounter for attention to tracheostomy Post Discharge Instructions Follow-up with your primary care provider in 1 week. Follow-up with Dr. Lai in [place] pulmonary clinic on 08/20/24 Outpatient Follow-Up Future Appointments Date Time Provider Department Center 08/20/2025 11:40 AM Nikita Lai MD [facility] Test Results Pending At Discharge Pending Labs Order Current Status IgE Antibody, IgG In process Cystic Fibrosis Respiratory Culture and Gram Stain Preliminary result Quantitative BAL/PAL/Bronch Wash Culture and Gram StainProtected Alveolar Lavage Preliminary result Pertinent Physical Exam At Time of Discharge Physical Exam Constitutional: General: She is not in acute distress. Appearance: She is well-developed. She is not diaphoretic. HENT: Head: Normocephalic and atraumatic. Mouth/Throat: Comments: Normal oral and pharyngeal mucosa Neck: Comments: Trach in place Cardiovascular: Rate and Rhythm: Normal rate and regular rhythm. Heart sounds: Normal heart sounds. Pulmonary: Effort: Pulmonary effort is normal. Breath sounds: Normal breath sounds. Abdominal: General: Bowel sounds are normal. Palpations: Abdomen is soft. Tenderness: There is no abdominal tenderness. Musculoskeletal: Cervical back: Normal range of motion. Skin: General: Skin is warm and dry. Capillary Refill: Capillary refill takes less than 2 seconds. Neurological: General: No focal deficit present. Mental Status: She is alert. Discharge Disposition/Condition Disposition: Home with Home Health Condition: Stable (s/sx potential problems absent or manageable) I spent >30 minutes of patient care and instruction time in preparation for this discharge. * Hospital Course - Jaylon Lovett MD - 05/17/2025 4:51 PM EDT Nestor Ardon is a 54 y.o. female presenting with PMH of COPD, cardiac arrest in September 2024 with AHRF needing tracheostomy, Afib on eliquis, CHF, intellectual disability was sent in Pulmonology clinic for tracheostomy decannulation. Chronic hypoxic/hypercarbic respiratory failure with h/o COPD Bronchitis Tracheostomy dependence -Currently on 5L humidifed trach collar O2 -VBG with PH 7.44, PCO2 67 and bicab 45 (41 on BMP). Likely mixed chronic resp acidosis with contraction metabolic alkalosis -Resp GS and cx with mixed organsims GPC pairs, GNR, diplococci Plan: Pt with an high risk condition which is a threat to life and bodily function. Will admit to inpatient Pulmonology team consulted. RT to start capping trials for decannulation Home albuterol and budesonide nebs continued Will get CXR to evaluate for any opacities. The resp cx could be contaminant VIRTUAL ASSISTANT consulted for passy daxa valve: Recommend continued use of PMSV w/ VIRTUAL ASSISTANT only at this time. Failed trach capping trial. Have added hypertonic saline nebs. We reattempted capping trial and failed Trach was exchanged. Pulmonary recommends: Recommendations: - Change to nasal canula O2 when capping trial being performed - Start 7 day course of PO Levaquin - Discharge with revefenacin daily, arformoterol bid, budesonide 0.5 mg bid, hypertonic saline bid,albuterol q6h prn and Cough assist - Will follow-up with Dr. Lai in [place] pulmonary clinic in 2-3 months after discharge Hypocalcemia: Ionized kenisha 4.2. this could be related to diuretic use and metabolic alkalosis Metabolic alkalosis Likely due to chronic diuretic use Bumex decreased to 2mg daily. Continue to monitor BMP Other chronic problems: #CHF: s/p cardiac arrest. Last Echo in chart from 2021 with normal EF. But her arrest was 2024. Currently not in acute HF exacerbation. home bumex dose 2mg BID. But due to contraction alkalosis decreased to 2mg daily # Afib - s/p cardioversion at - Continue Eliquis 5mg BID and Amiodarone 200mg # HLD - Continue Crestor # Bipolar disorder: Continue home risperidone and VPA # Intellectual disability - lives with sister Venous thromboembolism prophylaxis Patient on apixaban Code Status Full Code * Progress Notes - Kirill Marin - 05/17/2025 3:44 PM EDT Case Management Adult Progress Note Nestor Ardon 54 y.o. female CSN: [id number] Admission: 05/14/2025 1:56 PM Primary Problem: Encounter for attention to tracheostomy Anticipated Discharge Date: TBD Plan of care reviewed with pt's care team; and per MD, pt is medically ready for discharge. SW assist with providing a Voucher to assist with patient Trach Supplies, supplies listed below. Due to patient insurance authorization with [employer] patient is unable to receive Trach Supplies from other DME company. [employer] informed SW they don't have trach supplies. Patient and Sister was informed that patient would need to change the DME company with her insurance to [employer] to assist with obtaining more Trach Supplies [place]. [place] [id number], Voucher was approved by Miryam Tamayo (Nursing Steel Tester Music Worker). Voucher for $1,175. Patient meets 300%FPG. Supplies ordered and provided: 1. Portable suction machine with battery backup power 2. Red rubber suction catheters 3. Trach care kits 4. Trach ties 5. Suction canisters 6. Suction tubing 7. yankers 8. Air compressor for trach collar 9. Aerosol drain bags 10. Corrugated tubing 11. Trach mask 12. trach 6 cuffless Shiley SKU# [id number] inner cannula SKU# [id number] CARMINE Esparza, INSURANCE LOSS ADJUSTER Senior Movie Theater Manager/Case Management [facility] * Progress Notes - Eulalia Henderson RN - 05/17/2025 2:14 PM EDT Rx for trach supplies sent to [facility] via [facility] for bedside delivery, trach size 6 cuffless Shiley. Supplies ordered: 1. Portable suction machine with battery backup power 2. Red rubber suction catheters 3. Trach care kits 4. Trach ties 5. Suction canisters 6. Suction tubing 7. yankers 8. Air compressor for trach collar 9. Aerosol drain bags 10. Corrugated tubing 11. Trach mask 12. trach 6 cuffless Shiley SKU# [id number] inner cannula SKU# [id number] CM called [employer] in [place], pt has oxygen, suction at home-not portable and hospital bed, they can't supply trach supplies. CM called pt's sister Anita and left a voice message explaining the change on DME company. * Progress Notes - Perla Arita MBBS - 05/17/2025 2:09 PM EDT PULMONARY CONSULT FOLLOW UP NOTE Nestor Ardon is a 54 y.o. female presenting with chronic hypoxic hypercapnic respiratory failureand tracheostomy management. Events of past 24 hours: Patient continues to tolerate capping trial from a lack of respiratory distress standpoint but doeshave a high secretion burden needing suctioning through the trach Review of Systems: Complete 14 point review of systems is negative except for positives documented in HPI Last Recorded Vitals Blood pressure 119/72, pulse 72, temperature 36.4 ??C (97.5 ??F), resp. rate 16, height 1.626 m (5'4.02 ), weight 94.7 kg (208 lb 12.4 oz), SpO2 95%. Physical Exam GENERAL: NAD, laying supine in bed EYES: anicteric sclerae, no discharge from eyes, no erythema noted HENT: Oropharynx clear with moist mucous membranes and no mucosal ulcerations NECK/Lymph: Trachea midline, tracheostomy in place RESP: Good air movement, Breath sounds clear to auscultation. No wheezing. CARD: RRR, without murmur, rubs, or gallop Extremities: No edema, cyanosis or clubbing. GI: Abdomen is soft, nontender and nondistended. BS present SKIN: No rash, ulcers or subcutaneous nodules on exposed skin NEURO: Awake, alert, follows commands PSYCH: Appropriate mood and affect Results: Coags: No results found for: PT , INR , APTT CBC: WBC Count Date Value Ref Range Status 05/14/2025 5.51 3.70 - 10.30 10*3/uL Final HGB Date Value Ref Range Status 05/14/2025 9.8 (L) 11.2 - 15.7 g/dL Final HCT Date Value Ref Range Status 05/14/2025 31.7 (L) 34.0 - 45.0 % Final RBC Count Date Value Ref Range Status 05/14/2025 3.54 (L) 3.90 - 5.20 10*6/uL Final BMP: Sodium, Plasma Date Value Ref Range Status 05/14/2025 142 136 - 145 mmol/L Final Potassium, Plasma Date Value Ref Range Status 05/14/2025 3.4 (L) 3.6 - 4.9 mmol/L Final Chloride, Plasma Date Value Ref Range Status 05/14/2025 93 (L) 97 - 107 mmol/L Final BUN, Plasma Date Value Ref Range Status 05/14/2025 24 (H) 7 - 21 mg/dL Final CO2, Plasma Date Value Ref Range Status 05/14/2025 41 (HH) 22 - 29 mmol/L Final Creatinine, Plasma Date Value Ref Range Status 05/14/2025 0.79 0.60 - 1.10 mg/dL Final Glucose, Plasma Date Value Ref Range Status 05/14/2025 89 74 - 99 mg/dL Final Magnesium, Plasma Date Value Ref Range Status 05/14/2025 2.3 1.9 - 2.4 mg/dL Final Phosphorus, Plasma Date Value Ref Range Status 05/14/2025 4.6 (H) 2.5 - 4.5 mg/dL Final Add Ca++, ABG: Base Excess, Venous Date Value Ref Range Status 05/17/2025 13.8 (H) -2.0 - 3.0 mmol/L Final VBG: Bicarbonate, Calculated, Venous Date Value Ref Range Status 05/17/2025 41 (H) 22 - 26 mmol/L Final pCO2, Venous Date Value Ref Range Status 05/17/2025 68 (HH) 37 - 52 mmHg Final pH, Venous Date Value Ref Range Status 05/17/2025 7.39 7.32 - 7.43 Final pO2, Venous Date Value Ref Range Status 05/17/2025 50 (H) 25 - 40 mmHg Final SO2, Measured, Venous Date Value Ref Range Status 05/17/2025 83 (H) 65 - 80 % Final Imaging (past 24h): I personally visualized and interpreted all of the imaging studies below and I agree with formal interpretation. CT Chest wo IV Contrast Result Date: 05/15/2025 Persistent small loculated right pleural effusion and trace left effusion with right greater than left basilar atelectasis/round atelectasis. Interval development of clusters of tiny nodules in the lingula and right upper lobe which are suspicious for aspiration. Increased bronchial wall thickeningin bilateral lower lobes with some mucous plugging. CRITICAL RESULT: No. COMMUNICATION: Per this written report. Drafted by Nabila Pham MD on 05/15/2025 1:54 PM Final report signed by Nabila Pham MD on 05/15/2025 1:58 PM Assessment/Plan #Chronic hypoxic hypercapnic respiratory failure on trach collar ; PCO2 68 on last VBG #COPD without exacerbation #Tracheostomy management- exchanged trach 05/17 #Respiratory cultures +proteus - CF gram stain and culture from tracheal aspirate consistent with proteus and morganella, PAL MURF - Exchanged tracheostomy with 6.0 shiley uncuffed, speech therapy also on board with passy daxa valve available Recommendations: - Change to nasal canula O2 when capping trial being performed - Start 7 day course of PO Levaquin - Discharge with revefenacin daily, arformoterol bid, budesonide 0.5 mg bid, hypertonic saline bid,albuterol q6h prn and Cough assist - Will follow-up with Dr. Lai in [place] pulmonary clinic in 2-3 months after discharge This patient was seen and discussed with Dr. Lai as the attending physician. Patient is stable forDC and pulmonary will sign off CATERINA Prince Pulmonary and Critical Care Fellow [facility] Cosigned by Nikita Lai MD at 05/17/2025 7:36 PM EDT Associated attestation - Nikita Lai MD - 05/17/2025 7:36 PM EDT I saw and evaluated the patient with the resident/fellow. I discussed the case with the resident/fellow and agree with the findings and plan as documented. She has unfortunately failed trach capping trial x 2 due to secretion burden. It appears these copious secretions are her baseline but we have obtained a PAL yesterday and if that shows a treatable organism, I will attempt outpatient treatment of it and see if it affects her secretions. The patient's biggest concern was being unable to speak with the tracheostomy and now that that has been addressed with a PMV and trach capping when tolerated, she is amenable to keeping it in. F/up with me in clinic in around 6 weeks. * Query Clarification Note - Jaylon Lovett MD - 05/17/2025 1:11 PM EDT Physician Clarification Abnormal lab values may not be coded without provider interpretation and documentation in the medical record. Please review below and identify a diagnosis that accounts for the abnormal lab values being monitored, evaluated, and treated. [x] Iron deficiency anemia [] Other (please specify) This documentation will become part of the patient's medical record. * Procedures - Perla Arita MBBS - 05/17/2025 11:19 AM EDTAssociated Order(s): Tracheostomy Replacement Post-Procedure Diagnose(s): Encounter for attention to tracheostomy Tracheostomy Replacement Performed by: Perla Arita MBBS Authorized by: Jaylon Lovett MD Consent: Verbal consent obtained Risks and benefits: risks, benefits and alternatives were discussed Consent given by: patient and guardian Patient understanding: patient states understanding of the procedure being performed Patient consent: the patient's understanding of the procedure matches consent given Procedure consent: procedure consent matches procedure scheduled Relevant documents: relevant documents present and verified Test results: test results available and properly labeled Site marked: the operative site was marked Imaging studies: imaging studies available Required items: required blood products, implants, devices, and special equipment available Patient identity confirmed: arm band Time out: Immediately prior to procedure a time out was called to verify the correct patient, procedure, equipment, office support assistant and site/side marked as required. Indications: routine and obstruction Local anesthesia used: no Anesthesia: Local anesthesia used: no Sedation: Patient sedated: no Tube type: single cannula Tube cuff: cuffless Tube size: 6.0 mm Patient tolerance: patient tolerated the procedure well with no immediate complications Cosigned by Nikita Lai MD at 05/17/2025 8:08 PM EDT Associated attestation - Nikita Lai MD - 05/17/2025 8:08 PM EDT I was present for the entirety of the procedure(s). * Progress Notes - Osmin Weiss - 05/17/2025 10:42 AM EDT Case Management Discharge Note Nestor Ardon 54 y.o. female CSN: [id number] Admission: 05/14/2025 1:56 PM Primary Problem: Encounter for attention to tracheostomy Primary Emissions Inspector: Primary Caregiver: Family Assistance Available at Discharge: Availability of Care Givers (#Hours): 24 hours Family/Emissions Inspector(s) Willingness Assessed to care for patient at home: Yes Family/Emissions Inspector(s) Readiness Assessed to care for patient at home: Yes Housing Circumstances-Z Codes: Housing Circumstances (select all that apply): Low Income (101-300% Federal Poverty Guidlines) - Z596 Discharge Facility/Level of Care Needs: Discharge Facility/Level of Care Needs: 1-Home or Self Care Patient/Family Anticipated Services at Transition: Patient/Family Anticipated Services at Transition: none DME/Equipment Needed after Discharge: Equipment Currently Used at Home: trach supplies, cane, straight, wheelchair, manual, hospital/specialty bed, commode chair, oxygen Medicare Documentation: Medicare Second Notice?: No ([facility]) Follow-up: Fernando Arias DO [id number] [id number] Follow up [facility] Medical Equipment Follow up Discharge Transportation: Transportation Anticipated: family or friend will provide Transportation Home at Discharge: Family/Friend will Provide Has discharge transport been arranged?: No Follow Up Transport: Transportation Needed to Follow up Appoinments: Family/Friend will Provide Additional Comments: Plan of care reviewed with Pt's care team; Pt anticipated to discharge home today, pending Pulm recs. Pt anticipated to return home with family transport and assistance. Osmin Weiss * Care Plan - Yaw Okeefe RN - 05/17/2025 7:42 AM EDT Problem: Adult Inpatient Plan of Care Goal: Plan of Care Review Outcome: Ongoing, Progressing Flowsheets (Taken 05/17/2025740) Progress: no change Outcome Evaluation: pt verbalizes understanding in plan of care Plan of Care Reviewed With: patient Goal: Patient-Specific Goal (Individualized) Outcome: Ongoing, Progressing Flowsheets (Taken 05/17/2025 07) Patient/Family-Specific Goals (Include Timeframe): pt will remain free from harm during shift Individualized Care Needs: safety Anxieties, Fears or Concerns: none stated Goal: Absence of Hospital-Acquired Illness or Injury Outcome: Ongoing, Progressing Goal: Optimal Comfort and Wellbeing Outcome: Ongoing, Progressing Problem: Fall Injury Risk Goal: Absence of Fall and Fall-Related Injury Outcome: Ongoing, Progressing Intervention: Identify and Manage Contributors Flowsheets (Taken 05/17/2025740) Medication Review/Management: medications reviewed Self-Care Promotion: independence encouraged BADL personal objects within reach * Care Plan - Wesley Connolly - 05/16/2025 10:56 PM EDT Goal: Patient-Specific Goal (Individualized) 05/16/20252255 by Wesley Connolly Outcome: Ongoing, Progressing Flowsheets (Taken 05/16/20251999) Patient/Family-Specific Goals (Include Timeframe): pt. will remain safe Individualized Care Needs: safety Anxieties, Fears or Concerns: none stated Goal: Absence of Hospital-Acquired Illness or Injury 05/16/20252255 by Wesley Connolly Outcome: Ongoing, Progressing Note: Good hand hygiene is completed by staff and encouraged for patient. Problem: Fall Injury Risk Goal: Absence of Fall and Fall-Related Injury 05/16/20252255 by Wesley Connolly Outcome: Ongoing, Progressing 05/16/20252255 by Wesley Connolly Outcome: Ongoing, Not Progressing 05/16/20252255 by Wesley Connolly Outcome: Ongoing, Progressing Intervention: Identify and Manage Contributors Flowsheets (Taken 05/16/2025 0738 by Milagros Bruno RN) Medication Review/Management: medications reviewed Self-Care Promotion: independence encouraged BADL personal objects within reach Intervention: Promote Injury-Free Environment Flowsheets (Taken 05/16/20251999) Safety Promotion/Fall Prevention: activity supervised * Progress Notes - Jaylon Lovett MD - 05/16/2025 6:02 PM EDT Subjective Well overnight. No new complaints. Denies fever, SOA, CP, N/V Failed trach capping trial. Have added hypertonic saline nebs. Will re-attempt capping trial this evening. Review of Systems Objective Vitals Temp: [36.4 ??C (97.5 ??F)-36.8 ??C (98.3 ??F)] 36.8 ??C (98.3 ??F) Heart Rate: [66-92] 87 Resp: [16-20] 18 BP: (112-150)/(72-88) 112/74 FiO2 (%): [28 %-100 %] 35 % Physical Exam Constitutional: General: She is not in acute distress. Appearance: She is well-developed. She is not diaphoretic. HENT: Head: Normocephalic and atraumatic. Mouth/Throat: Comments: Normal oral and pharyngeal mucosa Neck: Comments: Trach in place Cardiovascular: Rate and Rhythm: Normal rate and regular rhythm. Heart sounds: Normal heart sounds. Pulmonary: Effort: Pulmonary effort is normal. Breath sounds: Normal breath sounds. Abdominal: General: Bowel sounds are normal. Palpations: Abdomen is soft. Tenderness: There is no abdominal tenderness. Skin: General: Skin is warm and dry. Neurological: Mental Status: She is alert. Assessment & Plan Encounter for attention to tracheostomy Nestor Ardon is a 54 y.o. female presenting with PMH of COPD, cardiac arrest in September 2024 with AHRF needing tracheostomy, Afib on eliquis, CHF, intellectual disability was sent in Pulmonology clinic for tracheostomy decannulation. Chronic hypoxic/hypercarbic respiratory failure with h/o COPD Tracheostomy dependence -Currently on 5L humidifed trach collar O2 -VBG with PH 7.44, PCO2 67 and bicab 45 (41 on BMP). Likely mixed chronic resp acidosis with contraction metabolic alkalosis -Resp GS and cx with mixed organsims GPC pairs, GNR, diplococci Plan: Pt with an high risk condition which is a threat to life and bodily function. Will admit to inpatient Pulmonology team consulted. RT to start capping trials for decannulation Home albuterol and budesonide nebs continued Will get CXR to evaluate for any opacities. The resp cx could be contaminant VIRTUAL ASSISTANT consulted for passy daxa valve: Recommend continued use of PMSV w/ VIRTUAL ASSISTANT only at this time. Failed trach capping trial. Have added hypertonic saline nebs. Will reattempt capping trial this evening. Hypocalcemia: Ionized kenisha 4.2. this could be related to diuretic use and metabolic alkalosis Plan Continue to monitor Calcium. Will check vit D Metabolic alkalosis Likely due to chronic diuretic use Bumex decreased to 2mg daily. Continue to monitor BMP Other chronic problems: #CHF: s/p cardiac arrest. Last Echo in chart from 2021 with normal EF. But her arrest was 2024. Currently not in acute HF exacerbation. home bumex dose 2mg BID. But due to contraction alkalosis decreased to 2mg daily # Afib - s/p cardioversion at - Continue Eliquis 5mg BID and Amiodarone 200mg # HLD - Continue Crestor # Bipolar disorder: Continue home risperidone and VPA # Intellectual disability - lives with sister Venous thromboembolism prophylaxis Patient on apixaban Code Status Full Code Medically Ready for Discharge:Anticipated in 2-4 Days * Consults - Margarita Christy RD - 05/16/2025 2:50 PM EDT Adult Nutrition Evaluation Note Nestor Ardon 54 y.o. female CSN: [id number] Room/Bed 227/227A Nutrition evaluation type: assessment Reason for evaluation: RN consult - allergies Hospital course: 54 yo female admit for trach decannulation. VIRTUAL ASSISTANT 05/15 recommended PO per MD and MBSS. Past medical/ surgical history: Past Medical History[1] Surgical History[2] Social history: Additional comments: Visited with pt this morning. Pt reports good appetite and PO intakes. Denied unintentional weight loss but she was unsure of her weight hx. Brought her some coffee per her request. She denied her food allergies, reports she had issues with bananas and chocolate when she was younger but tolerates them fine now. Vitals and Basic Assessment: BP: 130/82 Temp: 36.6 ??C (97.8 ??F) Oxygen Therapy: Supplemental oxygen O2 Delivery Method: Humidified trach collar Andrew Coma Scale Score: 15 Sahil Scale Score: 20 Most Recent BM Date: 05/16/25 Allergies: chocolate and bananas - removed 05/16 as pt and family deny these allergies Medications: Current Medications[3] Labs: Lab Results Component Value Date GLUCOSE 89 05/14/2025 CALCIUM 8.5 (L) 05/14/2025 NA 142 05/14/2025 K 3.4 (L) 05/14/2025 CO2 41 (HH) 05/14/2025 CL 93 (L) 05/14/2025 BUN 24 (H) 05/14/2025 CREATININE 0.79 05/14/2025 Anthropometrics: Height: 162.6 cm (5' 4.02 ) Weight: 94.7 kg (208 lb 12.4 oz) BMI (Calculated): 35.82 Weight Evaluation: Obese-Class 2 (BMI 35-39.9) Perry Body Weight (kg): 54.5 Percent Perry Body Weight: 174 Wt Readings from Last 10 Encounters: 05/16/25 94.7 kg (208 lb 12.4 oz) 05/07/25 94.7 kg (208 lb 12.4 oz) Estimated Needs: Metabolic Cart Study Results: Current Nutrition Intake: Diet Supplements: None Diet Order: Adult Diet Diet Texture: Regular Percent Meals Eaten (%): 100% over documented meals Diet Experience and Nutrition History: Diet Education Provided: Will monitor Pertinent home medications: ferrous sulfate, protonix, bumex Nutrition Focused Physical Exam: Physical exam performed on (date): 05/16 Temples (muscles): None Clavicle (muscle): None Shoulder (muscle): None Orbital (fat): None Triceps (fat): None Assessment of Malnutrition: Malnutrition Identified: No Nutrition Problem: Decreased nutrient needs sodium related to HF as evidenced by risk for fluid overload. Status of Nutrition Diagnosis: New Nutrition Interventions and Recommendations: - 2 gm Na diet Nutrition Monitoring and Goals: - PO >75% of meals - Dry weight maintenance Acuity Level: [address] [1] Past Medical History: Diagnosis Date (HFpEF) heart failure with preserved ejection fraction Anxiety COPD (chronic obstructive pulmonary disease) GERD (gastroesophageal reflux disease) Heart attack (CMS/HCC) Hyperlipidemia Hypertension Nerve pain Paroxysmal atrial fibrillation (CMS/HCC) Pericardial effusion Peripheral edema [2] Past Surgical History: Procedure Laterality Date CHOLECYSTECTOMY HYSTERECTOMY STOMACH SURGERY TRACHEOSTOMY TUBE PLACEMENT [3] Current Facility-Administered Medications: albuterol (Proventil) (2.5 MG/3ML) 0.083% nebulizer solution 2.5 mg, 2.5 mg, Nebulization, TID, Lukas Darnell MD, 2.5 mg at 05/16/25 0815 amiodarone (Pacerone) tablet 200 mg, 200 mg, Oral, BID, Lukas Darnell MD, 200 mg at 05/16/25 0802 apixaban (Eliquis) tablet 5 mg, 5 mg, Oral, BID, Lukas Darnell MD, 5 mg at 05/16/25 0802 budesonide (Pulmicort) 0.5 MG/2ML nebulizer solution 0.5 mg, 0.5 mg, Nebulization, BID, Lukas Darnell MD, 0.5 mg at 05/16/25 0815 bumetanide (Bumex) tablet 2 mg, 2 mg, Oral, Daily, Lukas Darnell MD, 2 mg at 05/16/25 08 divalproex (Depakote) DR tablet 500 mg, 500 mg, Oral, q8h SHARRI, Jaylon Lovett MD, 500 mg at 05/16/25 0651 ferrous sulfate EC tablet 324 mg, 324 mg, Oral, Daily with breakfast, Lukas Darnell MD, 324 mg at 05/16/25 08 melatonin tablet 6 mg, 6 mg, Nasogastric, Nightly PRN, Lukas Darnell MD, 6 mg at 05/15/252016 pantoprazole (Protonix) EC tablet 40 mg, 40 mg, Oral, Daily with breakfast, Lukas Darnell MD, 40 mgat 05/16/25 08 risperiDONE (RisperDAL) tablet 2 mg, 2 mg, Oral, BID, Lukas Darnell MD, 2 mg at 05/16/25 08 rosuvastatin (Crestor) tablet 10 mg, 10 mg, Oral, Daily, Lukas Darnell MD, 10 mg at 05/16/25 08 [COMPLETED] Insert peripheral IV, , , Once AND Saline lock IV, , , Once AND sodium chloride0.9 % flush 10 mL, 10 mL, Intravenous, q12h, 10 mL at 05/15/25 1646 AND sodium chloride 0.9 % flush 10 mL, 10 mL, Intravenous, PRN, Lukas Darnell MD sodium chloride 3 % nebulizer solution 3 mL, 3 mL, Nebulization, BID, Jaylon Lovett MD, 3 mL at1 0914 * Progress Notes - Yessica Doll CCC-VIRTUAL ASSISTANT - 05/16/2025 2:00 PM EDT Speech Language Pathology INITIAL MODIFIED BARIUM SWALLOW STUDY Patient Name: Nestor Ardon Age: 54 y.o. Today's Date: 05/16/2025 Recommendations: Continue up to IDDSI 7 regular diet w/ IDDSI 0 thin liquids; meds as tolerated. VIRTUAL ASSISTANT to follow for monitoring and for PMSV. History Medical History: Nestor Ardon is a 54 y.o. female presenting with PMH of COPD, cardiac arrest inSeptember 2024 with AHRF needing tracheostomy, Afib on eliquis, CHF, intellectual disability was sent in Pulmonology clinic for tracheostomy decannulation. Current diet: Adult diet Diet texture: Regular Subjective Patient received awake, upright in wheelchair. Participated in tasks of session. Emotionally labile, at times tearful. Objective Respiratory Status: humidified trach collar Location of procedure: GI radiology Oral phase -Lip closure: Oral residue escaping and passing mid-chin -Tongue Control During Bolus Hold: Escape to lateral buccal cavity/floor of mouth -Bolus Preparation/Mastication: Slow and prolonged with complete bolus recollection -Bolus Transport/Lingual Motion: Brisk -Oral Residue/Amount: Trace residue -Oral Residue Location: Lips, Tongue, Lateral sulci, and Floor of mouth Pharyngeal phase: -Swallow initiation: Impaired - lateral channels -Soft palate elevation: No bolus between soft palate/pharyngeal wall -Laryngeal elevation: Complete -Anterior hyoid excursion: Complete -Epiglottic inversion: Complete -Vestibule closure: Complete -Stripping wave: Present -Pharyngeal contraction: not assessed in lateral plane; unable to assess A-P 2/2 mode of transport (bed, not wheelchair) -BOT retraction: Incomplete - Pharyngeal residue amount: Trace - Pharyngeal residue location: Valleculae and Lateral channels -UES: Complete distension PENETRATION/ASPIRATION: Consistency & Method of Administration 1 2 3 4 5 6 7 8 Comments Thin via teaspoon [x] [] [] [] [] [] [] [] Thin via cup [x] [] [] [] [] [] [] [] Thin via straw [x] [] [] [] [] [] [] [] Pudding [x] [] [] [] [] [] [] [] Solid [x] [] [] [] [] [] [] [] Description of Penetration/Aspiration Scale: 1. Material does not enter airway. 2. Material enters airway, remains above the vocal folds, and is ejected from the airway. 3. Material enters airway, remains above the vocal folds, and is not ejected from the airway. 4. Material enters airway, contacts the vocal folds, and is ejected from the airway. 5. Material enters airway, contacts the vocal folds, and is not ejected from the airway. 6. Material enters airway, passes below the vocal folds, and is ejected from trachea. 7. Material enters airway, passes below the vocal folds, and is not ejected from the trachea despite effort. 8. Material enters airway, passes below the vocal folds, and no effort is made to eject. (Tabby Lopez et al. A penetration-aspiration scale. Dysphagia. 1996;11(2):93-8.) Assessment Patient presents with mild oral dysphagia characterized by reduced containment w/ loss of bolus to floor of mouth and prolonged mastication of solid which cleared w/ time. Residue coated the oral structures; anterior loss of residue mixed w/ saliva via R labial corner, passing the mid-chin. Pharyngeal phase grossly WFL. No penetration/aspiration occurred. Trace residue in the valleculae and lateral channels reduced w/ re-swallows. Prognosis: Good for improved function with skilled speech pathology services focusing on stated goals. Patient Education: Verbal instruction. Results and recommendations of this evaluation were communicated to: RN/Team Plan / Recommendations Diet recommendations: Continue up to IDDSI 7 regular diet w/ IDDSI 0 thin liquids; meds as tolerated. VIRTUAL ASSISTANT to follow for monitoring and for PMSV. Therapy Frequency: 3x week for 2 weeks F/u Imaging: as needed Goals Continue above diet w/ no overt s/s aspiration or pulmonary sequelae. Continue tx to increase use of PMSV. Yessica Doll M.A., CCC-VIRTUAL ASSISTANT Speech-Language Pathologist * Progress Notes - Perla Arita MBBS - 05/16/2025 12:25 PM EDT PULMONARY CONSULT FOLLOW UP NOTE Nestor Ardon is a 54 y.o. female presenting with chronic hypoxic hypercapnic respiratory failureand tracheostomy management. Events of past 24 hours: Patient tolerated capping trial all evening yesterday and secretary office clerk today, but was then desaturating to 87% with a brief period of being 82% SpO2, necessitating resumption of trach collar O2 on 35%. Per RT and nursing, she has copious secretions. Review of Systems: Complete 14 point review of systems is negative except for positives documented in HPI Last Recorded Vitals Blood pressure 130/82, pulse 83, temperature 36.6 ??C (97.8 ??F), temperature source Oral, resp. rate 20, SpO2 91%. Physical Exam GENERAL: NAD, laying supine in bed EYES: anicteric sclerae, no discharge from eyes, no erythema noted HENT: Oropharynx clear with moist mucous membranes and no mucosal ulcerations NECK/Lymph: Trachea midline, tracheostomy in place RESP: Good air movement, Breath sounds clear to auscultation. No wheezing. CARD: RRR, without murmur, rubs, or gallop Extremities: No edema, cyanosis or clubbing. GI: Abdomen is soft, nontender and nondistended. BS present SKIN: No rash, ulcers or subcutaneous nodules on exposed skin NEURO: Awake, alert, follows commands PSYCH: Appropriate mood and affect Results: Coags: No results found for: PT , INR , APTT CBC: WBC Count Date Value Ref Range Status 05/14/2025 5.51 3.70 - 10.30 10*3/uL Final HGB Date Value Ref Range Status 05/14/2025 9.8 (L) 11.2 - 15.7 g/dL Final HCT Date Value Ref Range Status 05/14/2025 31.7 (L) 34.0 - 45.0 % Final RBC Count Date Value Ref Range Status 05/14/2025 3.54 (L) 3.90 - 5.20 10*6/uL Final BMP: Sodium, Plasma Date Value Ref Range Status 05/14/2025 142 136 - 145 mmol/L Final Potassium, Plasma Date Value Ref Range Status 05/14/2025 3.4 (L) 3.6 - 4.9 mmol/L Final Chloride, Plasma Date Value Ref Range Status 05/14/2025 93 (L) 97 - 107 mmol/L Final BUN, Plasma Date Value Ref Range Status 05/14/2025 24 (H) 7 - 21 mg/dL Final CO2, Plasma Date Value Ref Range Status 05/14/2025 41 (HH) 22 - 29 mmol/L Final Creatinine, Plasma Date Value Ref Range Status 05/14/2025 0.79 0.60 - 1.10 mg/dL Final Glucose, Plasma Date Value Ref Range Status 05/14/2025 89 74 - 99 mg/dL Final Magnesium, Plasma Date Value Ref Range Status 05/14/2025 2.3 1.9 - 2.4 mg/dL Final Phosphorus, Plasma Date Value Ref Range Status 05/14/2025 4.6 (H) 2.5 - 4.5 mg/dL Final Add Ca++, ABG: Base Excess, Venous Date Value Ref Range Status 05/14/2025 18.4 (H) -2.0 - 3.0 mmol/L Final VBG: Bicarbonate, Calculated, Venous Date Value Ref Range Status 05/14/2025 45 (H) 22 - 26 mmol/L Final pCO2, Venous Date Value Ref Range Status 05/14/2025 67 (HH) 37 - 52 mmHg Final pH, Venous Date Value Ref Range Status 05/14/2025 7.44 (H) 7.32 - 7.43 Final pO2, Venous Date Value Ref Range Status 05/14/2025 21 (L) 25 - 40 mmHg Final SO2, Measured, Venous Date Value Ref Range Status 05/14/2025 29 (L) 65 - 80 % Final Imaging (past 24h): I personally visualized and interpreted all of the imaging studies below and I agree with formal interpretation. CT Chest wo IV Contrast Result Date: 05/15/2025 Persistent small loculated right pleural effusion and trace left effusion with right greater than left basilar atelectasis/round atelectasis. Interval development of clusters of tiny nodules in the lingula and right upper lobe which are suspicious for aspiration. Increased bronchial wall thickeningin bilateral lower lobes with some mucous plugging. CRITICAL RESULT: No. COMMUNICATION: Per this written report. Drafted by Nabila Pham MD on 05/15/2025 1:54 PM Final report signed by Nabila Pham MD on 05/15/2025 1:58 PM Assessment/Plan #Chronic hypoxic hypercapnic respiratory failure on trach collar ; PCO2 67 on last VBG #COPD without exacerbation #Tracheostomy management - CF gram stain and culture from tracheal aspirate consistent with MURF - IgE pending - Exchanged inner cannula, speech therapy also on board with passy daxa valve available Recommendations: - Change to nasal canula O2 when capping trial being performed - Ordered PAL today, perform capping trial afterwards. - Cough assist also ordered - Repeat VBG tomorrow at 7 am , ordered - If despite of the above the secretion burden is too much or patient becomes increasingly hypercapnic- this will prevent us from decannulation of the trach. Will addiction counselor patient and her sister accordingly - Agree with continuing hypertonic saline nebs for airway clearance - Continue home duonebs and budesonide nebs This patient was seen and discussed with Dr. Lai as the attending physician. We will continue to follow CATERINA Prince Pulmonary and Critical Care Fellow [facility] Cosigned by Nikita Lai MD at 05/17/2025 7:30 PM EDT Associated attestation - Nikita Lai MD - 05/17/2025 7:30 PM EDT I saw and evaluated the patient with the resident/fellow. I discussed the case with the resident/fellow and agree with the findings and plan as documented. * Jen Thomas, PharmD - 05/16/2025 8:40 AM EDT Images from the original note were not included. [id number] Apixaban IMPORTANT WARNING: If you have atrial fibrillation (a condition in which the heart beats irregularly, increasing the chance of clots forming in the body, and possibly causing strokes) and are taking apixaban to help prevent strokes or serious blood clots, you are at a higher risk of having a stroke after you stop taking this medication. Do not stop taking apixaban without talking to your doctor. Continue to take apixaban even if you feel well. Be sure to refill your prescription before you run out of medication so that you will not miss any doses of apixaban. If you need to stop taking apixaban, your doctor mayprescribe another anticoagulant ('blood thinner') to help prevent a blood clot from forming and causing you to have a stroke. If you have epidural or spinal anesthesia or a spinal puncture while taking a 'blood thinner' such as apixaban, you are at risk of having a blood clot form in or around your spine that could cause you to become paralyzed. Tell your doctor if you have an epidural catheter that is left in your body or have or have ever had repeated epidural or spinal punctures, spinal deformity, or spinal surgery. Tell your doctor and pharmacist if you are taking any of the following: anagrelide (Agrylin??); aspirin and other nonsteroidal anti-inflammatory drugs (NSAIDs) such as ibuprofen (Advil??, Motrin??, others), indomethacin (Indocin??, Tivorbex??), ketoprofen, and naproxen (Aleve??, Anaprox??, others); cilostazol (Pletal??); clopidogrel (Plavix??); dipyridamole (Persantine??); eptifibatide (Integrilin??); heparin; prasugrel (Effient??); ticagrelor (Brilinta??); ticlopidine; tirofiban (Aggrastat??), and warfarin (Coumadin??, Jantoven??). If you experience any of the following symptoms, call your doctor immediately: muscle weakness (especially in your legs and feet), numbness or tingling (especially in your legs), or loss of control of your bowels or bladder. Your doctor or pharmacist will give you the patient office rep's patient information sheet (Medication Guide) when you begin treatment with apixaban and each time you refill your prescription. Read the information carefully and ask your doctor or pharmacist if you have any questions. You can also visit the Food and Drug Administration (FDA) website (https://www.fda.gov/Drugs/DrugSafety/umm007741.htm) or the patient office rep's website to obtain the Medication Guide. Talk to your doctor about the risks of taking apixaban. WHY is this medicine prescribed? Apixaban is used to help prevent strokes or blood clots in people who have atrial fibrillation (a condition in which the heart beats irregularly, increasing the chance of clots forming in the body and possibly causing strokes) that is not caused by heart valve disease. Apixaban is also used to prevent deep vein thrombosis (DVT; a blood clot, usually in the leg) and pulmonary embolism (PE; a bloodclot in the lung) in people who are having hip replacement or knee replacement surgery. Apixaban isalso used to treat DVT and PE and may be continued to prevent DVT and PE from happening again afterthe initial treatment is completed. Apixaban is in a class of medications called factor Xa inhibitor s. It works by blocking the action of a certain natural substance that helps blood clots to form. HOW should this medicine be used? Apixaban comes as a tablet to take by mouth. It is usually taken with or without food twice a day. When apixaban is taken to prevent DVT and PE after hip or knee replacement surgery, the first dose should be taken at least 12 to 24 hours after surgery. Apixaban is usually taken for 35 days after a hip replacement surgery and for 12 days after knee replacement surgery. Take apixaban at around the same times every day. Follow the directions on your prescription label carefully, and ask your doctor or pharmacist to explain any part you do not understand. Take apixaban exactly as directed. Do nottake more or less of it or take it more often than prescribed by your doctor. If you are unable to swallow the tablets, you can crush them and mix with water, apple juice, or applesauce. Swallow the mixture right after you prepare it. Apixaban can also be given in certain types of feeding tubes. Ask your doctor if you should take this medication in your feeding tube. Follow your doctor's directions carefully. Continue to take apixaban even if you feel well. Do not stop taking apixaban without talking to your doctor. If you stop taking apixaban, your risk of a blood clot may increase. Are there OTHER USES for this medicine? This medication may be prescribed for other uses; ask your doctor or pharmacist for more information. What SPECIAL PRECAUTIONS should I follow? Before taking apixaban, ? tell your doctor and pharmacist if you are allergic to apixaban, any other medications, or any ofthe ingredients in apixaban tablets. Ask your pharmacist or check the Medication Guide for a list of the ingredients. ? Tell your doctor and pharmacist what prescription and nonprescription medications, vitamins, nutritional supplements, and herbal products you are taking or plan to take while taking apixaban. Your doctor may need to change the doses of your medications or monitor you carefully for side effects. ? The following nonprescription or herbal products may interact with apixaban: Delaney's wort; aspirin; NSAIDs (such as ibuprofen [Advil??, Motrin??] and naproxen [Aleve??, Naprosyn??]). Be sure to let your doctor and pharmacist know that you are taking these medications before you start taking apixaban. Do not start any of these medications while taking apixaban without discussing with your healthcare provider. ? you should know that apixaban may interact with certain medications that may be used to treat youif you have a stroke or other medical emergency. In case of an emergency, you or a family member should tell the doctor or emergency room staff who treat you that you are taking apixaban. ? tell your doctor if you have an artificial heart valve or if you have heavy bleeding anywhere in your body that cannot be stopped. Your doctor will probably tell you not to take apixaban. ? tell your doctor if you have or have ever had any type of bleeding problem, antiphospholipid syndrome (APS; a condition that causes blood clots), or kidney or liver disease. ? tell your doctor if you are , plan to become , or are . If you become while taking apixaban, call your doctor. ? if you are having surgery, including dental surgery, tell the doctor or dentist that you are taking apixaban. Your doctor may tell you to stop taking apixaban before the surgery or procedure. If you need to stop taking apixaban because you are having surgery, your doctor may prescribe a differentmedication to prevent blood clots during this time. Your doctor will tell you when you should starttaking apixaban again after your surgery. Follow these directions carefully. ? Call your doctor right away if you fall or injure yourself, especially if you hit your head. Yourdoctor may need to check you. What SPECIAL DIETARY instructions should I follow? Unless your doctor tells you otherwise, continue your normal diet. What should I do IF I FORGET to take a dose? Take the missed dose as soon as you remember it. However, if it is almost time for the next dose, skip the missed dose and continue your regular dosing schedule. Do not take a double dose to make up for a missed one. What SIDE EFFECTS can this medicine cause? Some side effects can be serious. If you experience any of these symptoms, call your doctor immediately or get emergency medical treatment: ? bleeding gums ? nosebleeds ? heavy vaginal bleeding ? red, pink, or brown urine ? red or black, tarry stools ? coughing up or vomiting blood or material that looks like coffee grounds ? swelling or joint pain ? headache ? rash ? chest pain or tightness ? swelling of the face or tongue ? trouble breathing ? wheezing ? feeling dizzy or faint Apixaban prevents blood from clotting normally, so it may take longer than usual for you to stop bleeding if you are cut or injured. This medication may also cause you to bruise or bleed more easily.Call your doctor right away if bleeding or bruising is unusual, severe, or cannot be controlled. Apixaban may cause other side effects. Call your doctor if you have any unusual problems while taking this medication. If you experience a serious side effect, you or your doctor may send a report to the Food and Drug Administration's (FDA) MedWatch Adverse Event Reporting program online (https://www.fda.gov/Safety/MedWatch) or by phone ( ). What should I know about STORAGE and DISPOSAL of this medication? Keep this medication in the container it came in, tightly closed, and out of reach of children. Store it at room temperature and away from light, excess heat and moisture (not in the bathroom). Dispose of unneeded medications in a way so that pets, children, and other people cannot take them.Do not flush this medication down the toilet. Use a medicine take-back program. Talk to your pharmacist about take-back programs in your community. Visit the FDA's Safe Disposal of Medicines website h ttps://goo.gl/c4Rm4p for more information. Keep all medication out of sight and reach of children as many containers are not child-resistant. Always lock safety caps. Place the medication in a safe location - one that is up and away and out of their sight and reach. https://www.upandaway.org What should I do in case of OVERDOSE? In case of overdose, call the poison control helpline at . Information is also available online at https://www.poisonhelp.org/help. If the victim has collapsed, had a seizure, has trouble breathing, or can't be awakened, immediately call emergency services at 911. Symptoms of overdose may include the following: ? unusual bleeding or bruising ? red, brown, or pink urine ? red or black, tarry stools ? coughing up or vomiting blood or material that looks like coffee grounds What OTHER INFORMATION should I know? Keep all appointments with your doctor. Do not let anyone else take your medication. Ask your pharmacist any questions you have about refilling your prescription. Keep a written list of all of the prescription and nonprescription (hbvy-ruf-grzmsqa) medicines, vitamins, minerals, and dietary supplements you are taking. Bring this list with you each time you visit a doctor or if you are admitted to the hospital. You should carry the list with you in case of joão rgencies. Brand Name(s): ? Eliquis?? This report on medications is for your information only, and is not considered individual patient advice. Because of the changing nature of drug information, please consult your physician or pharmacist about specific clinical use. The [employer] represents that the information provided hereunder was formulated with a reasonable standard of care, and in conformity with professional standards in the field. The [employer] makes no representations or warranties, express or implied, including, but not limited to, any implied warranty of merchantability and/or fitness for a particular purpose, with respect to such information and specifically disclaims all such warranties. Users are advised that decisions regarding drug therapy are complex medical decisions requiring the independent, informed decision of an appropriate health senior care manager, and the information is provided for informational purposes only. The entire monograph for a drug should be reviewed for a thorough understanding of the drug's actions, uses and side effects. The [employer] does not endorse or recommend the use of any drug.The information is not a substitute for medical care. AHFS?? Patient Medication Information?. ?? Copyright, 2023. The [employer]??, [address], [address], [place], [place]. All Rights Reserved. Duplication for commercial use must be authorized by [facility]. Selected Revisions: September 15, 2024. AHFS?? Patient Medication Information?. ?? Copyright, 2024 * Care Plan - Milagros Bruno RN - 05/16/2025 7:39 AM EDT Problem: Adult Inpatient Plan of Care Goal: Plan of Care Review Outcome: Ongoing, Progressing Flowsheets (Taken 05/16/2025737) Progress: no change Outcome Evaluation: Pt understanding and agreeable with plan of care Plan of Care Reviewed With: patient Goal: Patient-Specific Goal (Individualized) Outcome: Ongoing, Progressing Flowsheets (Taken 05/16/2025737) Patient/Family-Specific Goals (Include Timeframe): Pt will remain free from falls entirety of shift Individualized Care Needs: safety Anxieties, Fears or Concerns: None stated Goal: Absence of Hospital-Acquired Illness or Injury Outcome: Ongoing, Progressing Goal: Optimal Comfort and Wellbeing Outcome: Ongoing, Progressing Problem: Fall Injury Risk Goal: Absence of Fall and Fall-Related Injury Outcome: Ongoing, Progressing Intervention: Identify and Manage Contributors Flowsheets (Taken 05/16/2025737) Medication Review/Management: medications reviewed Self-Care Promotion: independence encouraged BADL personal objects within reach Intervention: Promote Injury-Free Environment Flowsheets (Taken 05/16/2025737) Safety Promotion/Fall Prevention: activity supervised assistive device/personal items within reach clutter-free environment maintained fall prevention program maintained lighting adjusted mobility aid in reach nonskid shoes/slippers when out of bed room organization consistent safety round/check completed toileting scheduled * Care Plan - Cherise Lopez RN - 05/15/2025 9:50 PM EDT Problem: Adult Inpatient Plan of Care Goal: Plan of Care Review Outcome: Ongoing, Progressing Flowsheets (Taken 05/15/20252147) Progress: no change Outcome Evaluation: pt understands plan of care Plan of Care Reviewed With: patient Goal: Patient-Specific Goal (Individualized) Outcome: Ongoing, Progressing Flowsheets (Taken 05/15/20251999) Patient/Family-Specific Goals (Include Timeframe): pt will remain free of falls during shift Individualized Care Needs: safety Anxieties, Fears or Concerns: none stated Goal: Absence of Hospital-Acquired Illness or Injury Outcome: Ongoing, Progressing Goal: Optimal Comfort and Wellbeing Outcome: Ongoing, Progressing Problem: Fall Injury Risk Goal: Absence of Fall and Fall-Related Injury Outcome: Ongoing, Progressing Intervention: Identify and Manage Contributors Flowsheets (Taken 05/15/20252147) Medication Review/Management: medications reviewed Self-Care Promotion: independence encouraged Intervention: Promote Injury-Free Environment Flowsheets (Taken 05/15/20252147) Safety Promotion/Fall Prevention: activity supervised nonskid shoes/slippers when out of bed safety round/check completed fall prevention program maintained * Progress Notes - Jaylon Lovett MD - 05/15/2025 6:54 PM EDT Subjective No events overnight. No new complaints. Denies fever, SOA, CP, N/V Review of Systems Objective Vitals Temp: [36.4 ??C (97.6 ??F)-36.8 ??C (98.3 ??F)] 36.4 ??C (97.6 ??F) Heart Rate: [66-84] 74 Resp: [16-19] 16 BP: (116-135)/(72-83) 125/80 FiO2 (%): [28 %-100 %] 100 % Physical Exam Constitutional: General: She is not in acute distress. Appearance: She is well-developed. She is not diaphoretic. HENT: Head: Normocephalic and atraumatic. Mouth/Throat: Comments: Normal oral and pharyngeal mucosa Neck: Comments: Trach in place Cardiovascular: Rate and Rhythm: Normal rate and regular rhythm. Heart sounds: Normal heart sounds. Pulmonary: Effort: Pulmonary effort is normal. Breath sounds: Normal breath sounds. Abdominal: General: Bowel sounds are normal. Palpations: Abdomen is soft. Tenderness: There is no abdominal tenderness. Skin: General: Skin is warm and dry. Neurological: Mental Status: She is alert. Assessment & Plan Encounter for attention to tracheostomy Nestor Ardon is a 54 y.o. female presenting with PMH of COPD, cardiac arrest in September 2024 with AHRF needing tracheostomy, Afib on eliquis, CHF, intellectual disability was sent in Pulmonology clinic for tracheostomy decannulation. Chronic hypoxic/hypercarbic respiratory failure with h/o COPD Tracheostomy dependence -Currently on 5L humidifed trach collar O2 -VBG with PH 7.44, PCO2 67 and bicab 45 (41 on BMP). Likely mixed chronic resp acidosis with contraction metabolic alkalosis -Resp GS and cx with mixed organsims GPC pairs, GNR, diplococci Plan: Pt with an high risk condition which is a threat to life and bodily function. Will admit to inpatient Pulmonology team consulted. RT to start capping trials for decannulation Home albuterol and budesonide nebs continued Will get CXR to evaluate for any opacities. The resp cx could be contaminant VIRTUAL ASSISTANT consulted for passy daxa valve: Recommend continued use of PMSV w/ VIRTUAL ASSISTANT only at this time. Hypocalcemia: Ionized kenisha 4.2. this could be related to diuretic use and metabolic alkalosis Plan Continue to monitor Calcium. Will check vit D Metabolic alkalosis Likely due to chronic diuretic use Bumex decreased to 2mg daily. Continue to monitor BMP Other chronic problems: #CHF: s/p cardiac arrest. Last Echo in chart from 2021 with normal EF. But her arrest was 2024. Currently not in acute HF exacerbation. home bumex dose 2mg BID. But due to contraction alkalosis decreased to 2mg daily # Afib - s/p cardioversion at - Continue Eliquis 5mg BID and Amiodarone 200mg # HLD - Continue Crestor # Bipolar disorder: Continue home risperidone and VPA # Intellectual disability - lives with sister Venous thromboembolism prophylaxis Patient on apixaban Code Status Full Code Medically Ready for Discharge:Anticipated in 2-4 Days * Progress Notes - Yessica Doll CCC-VIRTUAL ASSISTANT - 05/15/2025 2:45 PM EDT Speech Language Pathology Speech Language Pathology Clinical Swallow Initial Evaluation Passy Beltrami Speaking Valve Evaluation Patient Name: Nestor Ardon Age: 54 y.o. Today's Date: 05/16/2025 Recommendations: Recommend MBSS to further assess swallow function; continuation of PO diet at MD discretion. Recommend continued use of PMSV w/ VIRTUAL ASSISTANT only at this time. History/Background Information Nestor Ardon is a 54 y.o. female presenting with PMH of COPD, cardiac arrest in September 2024 with AHRF needing tracheostomy, Afib on eliquis, CHF, intellectual disability was sent in Pulmonology clinic for tracheostomy decannulation. Subjective Nestor Ardon was alert and cooperative. Identified by name and . RN provided verbal consent for evaluation. Objective Current diet: Adult diet Diet texture: Regular Respiratory Status: 28% O2 via tracheostomy mask WBC: 5.51 Relevant Imaging: CT Chest 05/16: IMPRESSION: Persistent small loculated right pleural effusion and trace left effusion with right greater than left basilar atelectasis/round atelectasis. Interval development of clusters of tiny nodules in the lingula and right upper lobe which are suspicious for aspiration. Increased bronchial wall thickeningin bilateral lower lobes with some mucous plugging. Direction Following: Follows 1 step directions and With repetition Oral Mechanism Report: Dentition: intact Oral hygiene: WFL Focused Cranial Nerve Exam: Trigeminal Nerve (V): facial sensation intact and mandible strength/ROM intact Facial Nerve (VII): WFL Vagus Nerve (X): Not assessed Spinal Accessory (XI): Not assessed Hypoglossal Nerve (XII): WFL Function Exam: Secretion Management: baseline cough Vocal Quality: reduced intensity Cough: - Volitional not assessed - Reflexive unable to elicit Baseline Tracheostomy/Respiratory Status: Date of trach placement and/or change: unknown, present on admission; placed during prior hospitalization in September 2024 Type/size of tracheostomy: Shiley 6 Cuff at baseline: cuffless O2 device: trach collar O2 flow rate: 5 L/min FiO2: 28% O2 saturation: 90s% Secretions: thick, white Comments: Patient w/ strong cough; RN suctioning secretions x 2 during session Speech Assessment with Tracheostomy Finger Occlusion: Oral airflow: leak phonation at baseline intermittently Vocal quality: hoarse, hypophonic Speech Assessment with Speaking Valve Placement: Valve Placed: PMV 2000 (purple) Adaptor(s) used: N/A Number of trials: 4 Length of trials: 2-5 minutes Completed in-line with mechanical ventilation: n/a Observed physiological impact of PMV: phonation and no changes in vitals from baseline Voicing occurred: with cues Vocal quality: harsh Respiratory support for speech: maximum loudness is within functional limitations and vocal duration is reduced Respiratory/phonatory coordination: voicing upon exhalation Articulation: reduced articulatory precision: improved with cues Speech intelligibility: adequate with compensatory strategies Reason for speaking valve removal: end of session Following trial: speaking valve removed Patient with reduced breath support for speech. Reduced length of utterance that improved w/ verbalcues / requests for repetition. Harsh vocal quality with pitch breaks noted intermittently. Oral Feeding Trials: Positionin-90 degrees Feeding assistance: total assistance from VIRTUAL ASSISTANT or caregiver Consistencies Administered: ice chips and thin liquid via straw Risk Factors: Chest imaging concerning for aspiration related respiratory disease, COPD, Tracheostomy, and hx dysphagia [place] Swallow Protocol (Matilde and Javierr, 2014) - 3 Oz water challenge: not tested this date Assessment Dysphagia: Patient presents w/ risk factors for dysphagia vs aspiration; although no overt s/s aspiration exhibited at bedside, will benefit from further instrumental evaluation to more definitively r/o dysphagia or silent aspiration. Communication: Patient is a fair candidate for PMSV. Barriers to longer duration of use are secretions this date, contributing to increased coughing and need for suctioning w/ RN. Vocal quality was clear, adequate intensity, w/ no changes in vital signs. No back pressure of air w/ trials of PMSV removal. Appears appropriate for continued trials of PMSV w/ VIRTUAL ASSISTANT only at this time; suspect duration of use will increase as secretion management improves. Prognosis: Fair for improved function with skilled speech pathology services focusing on stated goals. Patient Education was provided via verbal instruction to patient regarding risk factors for dysphagia, clinical indicators of dysphagia following evaluation, and plan of care . Will continue to provide education in subsequent sessions as warranted. Results and recommendations of this evaluation were communicated to: RN/Team Plan / Recommendations Diet recommendations: Recommend MBSS to further assess swallow function; continuation of PO diet atMD discretion. Recommend continued use of PMSV w/ VIRTUAL ASSISTANT only at this time. Goals MBSS. Increase use of PMSV for functional communication. Yessica Doll M.A., CCC-VIRTUAL ASSISTANT Speech-Language Pathologist * Progress Notes - Omid Weissjanet Smith - 05/15/2025 1:37 PM EDT Case Management Adult Initial Progress Note Nestor Ardon 54 y.o. female CSN: [id number] Admission: 05/14/2025 1:56 PM Primary Problem: Encounter for attention to tracheostomy Steel Tester reviewed chart and spoke with patient and sister at bedside to complete this Initial Case Management Assessment. PCP: Fernando Arias DO Emergency Contact: Extended Emergency Contact Information Primary Emergency Contact: AnthonyAnita Mobile Relation: Sister Preferred language: Par[place] Nail Making Machine Setter needed? No Secondary Emergency Contact: Malinda Cruz Mobile Relation: Relative Preferred language: [place] Nail Making Machine Setter needed? No Insurance: Primary Visit Coverage Payer Plan Sponsor Code Group Number Group Name [employer] MEDICAID WE[employer] MEDICAID Primary Visit Coverage Subscriber Subscriber ID Subscriber Name Subscriber SSN Subscriber Address [id number] KEENA ARDON [id number] [place] [address] Patient information: Primary Caregiver: Family Support System: Immediate family Daily Living Activities: Living Arrangements: Family (Sister, [id number], and Sister's granchild) Type of Residence: Private residence, Single Level (1 step for entry) [address] [facility] [place] [address] Current DME: Equipment Currently Used at Home: trach supplies, cane, straight, wheelchair, manual, hospital/specialty bed, commode chair, oxygen Current DME Provider: Hoda Devlin Income Information: Income Source: Disabled Income/Expense Information: Expenses exceed income Housing Circumstances-Z Codes: Housing Circumstances (select all that apply): Low Income (101-300% Federal Poverty Guidlines) - Z596 Anticipated Discharge Date: TBD Patient's Discharge Goal: Return home Assistance Available at Discharge: Family Discharge Transport: Sister Follow Up Transport: Sister or [facility] Home Health / Home Infusion / Outpatient Dialysis Services: Current DME Provider: Hoda Devlin Living Will/Advance Directive/Power of Counseling Program Leader /Guardian: Advance Directive: Patient does not have advance directive Information Provided on Healthcare Directives: No Pre-existing DNR/DNI Order: No Patient Requests Assistance: No Additional Comments: Pt's sister confirmed address, EC, PCP, and insurance. Pt lives in a single- story home with her sister, sister's spouse, and sister's grandchild. Pt's home has 1 step for entry. Pt receives Disability benefits and relies upon sister for transport. Pt's sister plans to provide transportation home and family provides 24 hour assistance. Pt uses a WC, cane, hospital bed, BSC, trach supplies, and 4L home O2, provided by [employer]. Pt's sister states [employer] is unable to provide all the trach suppliesthat are needed. Pt is not active with HH, infusions, HD, or POA/LW. Osmin Weiss * Care Plan - Milagros Bruno RN - 05/15/2025 7:54 AM EDT Problem: Adult Inpatient Plan of Care Goal: Plan of Care Review Outcome: Ongoing, Progressing Flowsheets (Taken 05/15/2025 0751) Progress: no change Outcome Evaluation: Agreeable with plan of care Plan of Care Reviewed With: patient caregiver Goal: Patient-Specific Goal (Individualized) Outcome: Ongoing, Progressing Flowsheets (Taken 05/15/2025 0751) Patient/Family-Specific Goals (Include Timeframe): Pt to remain free from falls entirety of shift Individualized Care Needs: safety Anxieties, Fears or Concerns: none stated Goal: Absence of Hospital-Acquired Illness or Injury Outcome: Ongoing, Progressing Goal: Optimal Comfort and Wellbeing Outcome: Ongoing, Progressing Problem: Fall Injury Risk Goal: Absence of Fall and Fall-Related Injury Outcome: Ongoing, Progressing Intervention: Identify and Manage Contributors Flowsheets (Taken 05/15/2025 0751) Medication Review/Management: medications reviewed Self-Care Promotion: BADL personal objects within reach BADL personal routines maintained Intervention: Promote Injury-Free Environment Flowsheets (Taken 05/15/2025 0751) Safety Promotion/Fall Prevention: activity supervised safety round/check completed clutter-free environment maintained assistive device/personal items within reach fall prevention program maintained nonskid shoes/slippers when out of bed room organization consistent lighting adjusted * Care Plan - Rosendo Leiva - 05/15/2025 1:30 AM EDT Problem: Adult Inpatient Plan of Care Goal: Plan of Care Review Outcome: Ongoing, Progressing Flowsheets (Taken 05/15/2025 0127) Progress: no change Outcome Evaluation: POC reviewed with patient/sister. POC understood Plan of Care Reviewed With: patient caregiver Goal: Patient-Specific Goal (Individualized) Outcome: Ongoing, Progressing Flowsheets (Taken 05/14/20252000) Patient/Family-Specific Goals (Include Timeframe): (Patient to remain safe and free of falls duringshift.) Patient to remain safe and free of falls during shift Individualized Care Needs: Saftety Anxieties, Fears or Concerns: None stated Goal: Absence of Hospital-Acquired Illness or Injury Outcome: Ongoing, Progressing Goal: Optimal Comfort and Wellbeing Outcome: Ongoing, Progressing * Care Plan - Edilson Evans RN - 05/14/2025 6:40 PM EDT Problem: Adult Inpatient Plan of Care Goal: Plan of Care Review Outcome: Ongoing, Progressing Flowsheets (Taken 05/14/2025 1838) Progress: no change Outcome Evaluation: Pt just arrived direct admit - but understands her POC Plan of Care Reviewed With: patient caregiver Goal: Patient-Specific Goal (Individualized) Outcome: Ongoing, Progressing Flowsheets (Taken 05/14/2025 1411) Patient/Family-Specific Goals (Include Timeframe): pt to remain safe and free of falls during shift Individualized Care Needs: safety Anxieties, Fears or Concerns: none stated Goal: Absence of Hospital-Acquired Illness or Injury Outcome: Ongoing, Progressing Intervention: Identify and Manage Fall Risk Flowsheets (Taken 05/14/2025 1838) Safety Promotion/Fall Prevention: activity supervised assistive device/personal items within reach clutter-free environment maintained fall prevention program maintained mobility aid in reach nonskid shoes/slippers when out of bed Intervention: Prevent Skin Injury Flowsheets (Taken 05/14/2025 1411) Body Position: position maintained supine weight shifting Intervention: Prevent and Manage VTE (Venous Thromboembolism) Risk Flowsheets (Taken 05/14/2025 1656) VTE Prevention/Management: (pt walks to bathroom frequently) SCDs (sequential compression devices) off other (see comments) Intervention: Prevent Infection Flowsheets (Taken 05/14/2025 183) Infection Prevention: environmental surveillance performed rest/sleep promoted visitors restricted/screened Goal: Optimal Comfort and Wellbeing Outcome: Ongoing, Progressing Intervention: Monitor Pain and Promote Comfort Flowsheets (Taken 05/14/2025 183) Pain Management Interventions: care clustered food emotional support rest Intervention: Provide Person-Centered Care Flowsheets (Taken 05/14/2025 183) Trust Relationship/Rapport: care explained choices provided questions answered questions encouraged reassurance provided * H&P - Lukas Darnell MD - 05/14/2025 5:34 PM EDT Subjective Chief complaint Tracheostomy decannulation History Of Present Illness Nestor Ardon is a 54 y.o. female presenting with PMH of COPD, cardiac arrest in September 2024 with AHRF needing tracheostomy, Afib on eliquis, CHF, intellectual disability was sent in Pulmonology clinic for tracheostomy decannulation. She is awake and alert, she is not able to talk due to her tracheostomy. But she is able to respond to questions and verbalized some words. The sister at bedside assisted with history taking. The sister states that he uses 4 L oxygen through the tracheostomy. She requires some suctioning through the tracheostomy few times a day and has some yellowish sputum which has not increased in frequency. She has some cough and SOB but it is chronic. She denies any fever, chills, hemoptysis. She is able to walk with assistance. Off note, she has history of PEA cardiac arrest with pericardial effusion 10/06/2024, treated at .11/02 pericardiocentesis was complicated by RV perforation. 1 month ICU stay and tracheostomy placement 10/26/2024 Medical/Surgical/Social/Family History I have reviewed and updated the patient history. Travel History Relevant International Travel History: Travel Screening Question Response Have you been in contact with someone who was sick? No / Unsure Do you have any of the following new or worsening symptoms? Joint pain;Muscle pain Have you traveled internationally or domestically in the last month? No Travel History Travel since 04/14/25 No documented travel since 04/14/25 Allergies Banana and Chocolate Outpatient medications in system Home Medications[1] Medications ordered for hospitalization Current Scheduled Medications[2] Current Continuous Medications[3] Current PRN Medications[4] Objective Review of Systems Negative except HPI Physical Exam Cardiovascular: Rate and Rhythm: Normal rate. Pulmonary: Effort: Pulmonary effort is normal. Breath sounds: Rales present. Abdominal: Palpations: Abdomen is soft. Tenderness: There is no abdominal tenderness. Musculoskeletal: General: Normal range of motion. Neurological: General: No focal deficit present. Mental Status: She is alert. Mental status is at baseline. Last Recorded Vitals Blood pressure (!) 142/85, pulse 70, temperature 37 ??C (98.6 ??F), temperature source Oral, resp. rate 17, SpO2 91%. Results Review I have reviewed the latest lab and imaging results. Assessment & Plan Encounter for attention to tracheostomy Nestor Ardon is a 54 y.o. female presenting with PMH of COPD, cardiac arrest in September 2024 with AHRF needing tracheostomy, Afib on eliquis, CHF, intellectual disability was sent in Pulmonology clinic for tracheostomy decannulation. Chronic hypoxic/hypercarbic respiratory failure with h/o COPD Tracheostomy dependence -Currently on 5L humidifed trach collar O2 -VBG with PH 7.44, PCO2 67 and bicab 45 (41 on BMP). Likely mixed chronic resp acidosis with contraction metabolic alkalosis -Resp GS and cx with mixed organsims GPC pairs, GNR, diplococci Plan: Pt with an high risk condition which is a threat to life and bodily function. Will admit to inpatient Pulmonology team consulted. RT to start capping trials for decannulation Home albuterol and budesonide nebs continued Will get CXR to evaluate for any opacities. The resp cx could be contaminant VIRTUAL ASSISTANT consulted for passy daxa valve. Hypocalcemia: Ionized kenisha 4.2. this could be related to diuretic use and metabolic alkalosis Plan Continue to monitor Calcium. Will check vit D Metabolic alkalosis Likely due to chronic diuretic use Bumex decreased to 2mg daily. Continue to monitor BMP Other chronic problems: #CHF: s/p cardiac arrest. Last Echo in chart from 2021 with normal EF. But her arrest was 2024. Currently not in acute HF exacerbation. home bumex dose 2mg BID. But due to contraction alkalosis decreased to 2mg daily # Afib - s/p cardioversion at - Continue Eliquis 5mg BID and Amiodarone 200mg # HLD - Continue Crestor # Bipolar disorder: Continue home risperidone and VPA # Intellectual disability - lives with sister Venous thromboembolism prophylaxis Patient on apixaban Diet Dietary Orders (From admission, onward) Start Ordered 05/14/25 1509 Adult diet Diet texture: Regular Diet effective now References: IDDSI Diet Texture Guide Question: Diet texture Answer: Regular 05/14/25 5826 Code Status Full Code [1] Medications Prior to Admission Medication Sig Dispense Refill acetaminophen (Tylenol) 500 MG tablet Take 0.5 tablets by mouth as needed. albuterol (Proventil) (2.5 MG/3ML) 0.083% nebulizer solution Take 3 mL by nebulization 3 times a day. amiodarone (Pacerone) 200 MG tablet Take 1 tablet by mouth twice a day. apixaban (Eliquis) 5 MG tablet Take 1 tablet by mouth twice a day. budesonide (Pulmicort) 0.5 MG/2ML nebulizer solution Inhale 2 mL daily. bumetanide (Bumex) 2 MG tablet Take 1 tablet by mouth twice a day. ferrous sulfate 325 (65 Fe) MG EC tablet Take 1 tablet by mouth daily. gabapentin (Neurontin) 100 MG capsule Take 1 capsule by mouth 3 times a day. melatonin tablet 2 tablets by Nasogastric route daily as needed. (Patient taking differently: Take 2 tablets by mouth nightly.) oxyCODONE (Roxicodone) 10 MG immediate release tablet Take 1 tablet by mouth as needed. pantoprazole (Protonix) 40 MG EC tablet Take 1 tablet by mouth daily. risperiDONE (RisperDAL) 2 MG tablet Take 1 tablet by mouth twice a day. rosuvastatin (Crestor) 10 MG tablet Take 1 tablet by mouth daily. valproic acid (Depakene) 250 MG capsule Take 1 capsule by mouth every 8 hours. [2] albuterol, 2.5 mg, Nebulization, TID amiodarone, 200 mg, Oral, BID apixaban, 5 mg, Oral, BID budesonide, 0.5 mg, Nebulization, BID bumetanide, 2 mg, Oral, BID divalproex, 250 mg, Oral, TID [START ON 05/15/2025] ferrous sulfate, 324 mg, Oral, Daily with breakfast [START ON 05/15/2025] pantoprazole, 40 mg, Oral, Daily with breakfast risperiDONE, 2 mg, Oral, BID rosuvastatin, 10 mg, Oral, Daily sodium chloride, 10 mL, Intravenous, q12h [3] [4] PRN medications: melatonin, [COMPLETED] Insert peripheral IV AND Saline lock IV AND sodium chloride AND sodium chloride * Procedures - Kanchan Galvan RN - 05/14/2025 4:14 PM EDTAssociated Order(s): Insert peripheral IV Insert peripheral IV Performed by: Kanchan Galvan RN Authorized by: Lukas Darnell MD Hand hygiene: Hand hygiene performed prior to insertion Inserted using aseptic techniques: Yes Preparation: Skin prepped with chg Orientation: Right Location: Forearm Catheter placed: Peripheral IV Catheter size: 20g/2.00in Line Technique: Ultrasound Guidance Number of attempts: 1 IV flushes: Without difficulty and positive blood return noted and IV luer locked Patient tolerance: Patient tolerated the procedure well and there were no complications Patient comfort measures used: Position of comfort and distraction IV site covered with: Transparent semipermeable dressing Education provided to: Patient Comments: Labs collected at time of IV insertion * Consults - Perla Arita MBBS - 05/14/2025 2:15 PM EDTAssociated Order(s): Inpatient consult to Pulmonology Inpatient consult to Pulmonology Consult performed by: Perla Arita MBBS Consult ordered by: Lukas Darnell MD Reason For Consult: Tracheostomy decannulation Requesting Provider: No ref. provider found Chief Complaint: No chief complaint on file. History Of Present Illness The patient is a 54 y.o. female, who presents to with PMH of COPD and AHRF needing tracheostomy.She presents for trach decannulation. History of PEA cardiac arrest with pericardial effusion 10/06/2024, treated at . 11/02 pericardiocentesis was complicated by RV perforation. 1 month ICU stay and t racheostomy placement 10/26/2024 (Shiley 6 cuffed). Pulmonary consulted for tracheostomy management/ decannulation. She has been experiencing significant phlegm for the past 2 months, which led to several emergency room visits. During these visits, she was prescribed antibiotics and steroids due to a suspected mild pneumonia which has not alleviated her symptoms. She occasionally manages to speak a few words (but there is poor healthcare literacy as the patient has an intellectual disability and her sister whois her caregiver for the past 7 years also does not have a good understanding of tracheostomy care). Of note, per OSH records, she was originally extubated 10/14/24, but had 2 episodes of suspected bronchospasm leading to reintubation. She therefore underwent trach placement 10/26/24. She [facility]ache[facility] [place], with the last change of inner cannula occurring about 8 days ago. She has been using a speaking valve [...] years but does not have guardianship or durablethe christ hospitalcare power of traffic law attorney. She is mobile within her home, using a cane for support. Past Medical History Past Medical History[1] COPD Chronic hypoxemic respiratory failure on LTOT [...] HCPOA since her parents passed (7 yrs ago)). Past Surgical History Surgical History[2] Family History - Father: Lung cancer, asthma as a child - Sister: Lung cancer Social History Tobacco: Smoked about 2 packs a day for 20 to 30 years, quit 2023. Recreational Drugs: Reports no drug use. Occupational History Occupational history[3] Employer: No address on file. Allergies Banana and Chocolate Medications Prior to Admission medications Medication Sig Start Date End Date Taking? Authorizing Provider acetaminophen (Tylenol) 500 MG tablet Take 0.5 tablets by mouth as needed. Provider, Historical albuterol (Proventil) (2.5 MG/3ML) 0.083% nebulizer solution Take 3 mL by nebulization 3 times a day. 11/14/24 Provider, Historical amiodarone (Pacerone) 200 MG tablet Take 1 tablet by mouth twice a day. 01/17/25 Provider, Historical apixaban (Eliquis) 5 MG tablet Take 1 tablet by mouth twice a day. 10/31/24 Provider, Historical budesonide (Pulmicort) 0.5 MG/2ML nebulizer solution Inhale 2 mL daily. 11/14/24 Provider, Historical bumetanide (Bumex) 2 MG tablet Take 1 tablet by mouth twice a day. 03/18/25 Provider, Historical ferrous sulfate 325 (65 Fe) MG EC tablet Take 1 tablet by mouth daily. 01/17/25 Provider, Historical gabapentin (Neurontin) 100 MG capsule Take 1 capsule by mouth 3 times a day. 12/31/24 Provider, Historical melatonin tablet 2 tablets by Nasogastric route daily as needed. Patient taking differently: Take 2 tablets by mouth nightly. 11/14/24 Provider, Historical oxyCODONE (Roxicodone) 10 MG immediate release tablet Take 1 tablet by mouth as needed. 01/01/25 Provider, Historical pantoprazole (Protonix) 40 MG EC tablet Take 1 tablet by mouth daily. 02/25/25 Provider, Historical risperiDONE (RisperDAL) 2 MG tablet Take 1 tablet by mouth twice a day. 01/17/25 Provider, Historical rosuvastatin (Crestor) 10 MG tablet Take 1 tablet by mouth daily. Provider, Historical valproic acid (Depakene) 250 MG capsule Take 1 capsule by mouth every 8 hours. Provider, Historical Current Medications[4] Review of Systems: Complete 14 point review of systems is negative except for positives documented in HPI Last Recorded Vitals Visit Vitals BP 134/79 (BP Location: Left arm, Patient Position: Sitting) Pulse 86 Temp 36.8 ??C (98.3 ??F) (Oral) Resp 17 Smoking Status Former Physical Exam GENERAL: NAD, laying supine in bed, on MV EYES: anicteric sclerae, no discharge from eyes, no erythema noted HENT: Oropharynx clear with moist mucous membranes and no mucosal ulcerations NECK/Lymph: Trachea midline. Tracheostomy in place with thick secretions RESP: Good air movement, Breath sounds clear to auscultation. No wheezing. CARD: RRR, without murmur, rubs, or gallop Extremities: No edema, cyanosis or clubbing. GI: Abdomen is soft, nontender and nondistended. BS present SKIN: No rash, ulcers or subcutaneous nodules on exposed skin NEURO: Awake, alert, follows commands PSYCH: Appropriate mood and affect Results: Coags: No results found for: INR , PT1 , APTT , HPRN , CLFGN CBC: No results found for: WBC , HGB , HCT , RBC , MCV , MCH , MCHC , RDW , MPV , NRBC , NEUTOPHILPCT , LYMPHOPCT , MONOPCT , EOSPCT , BASOPCT , CIG BMP: No results found for: NA , K , CA , CL , BUN , CO2 , CREATININE , GLUCOSE , MG , PHOS , CAION LFT: No results found for: AST , ALT , ALKPHOS , BILITOT , TP ABG: No results found for: PH , PCO2 , PO2 , O2SAT , BD , BE , LHJ3ZAD , WTF9EECV , GL9CRMX , FIO2 , TEMP VBG: No results found for: BDVEN , BEVEN , TVA3FTT , ZTZ1ILJ , PHVEN , PO2VEN , U2ESJUHW , LYL2LOYQIJE , PHVENTEMP Imaging (past 24h): I personally visualized and interpreted all of the imaging studies below and I agree with formal interpretation. Assessment/Plan #Chronic hypoxic respiratory failure on 3lpm #COPD #Tracheostomy management Patient received only incomplete trach supplies, inner cannula not exchanged in almost 10 days. No passy daxa valve. Recommendations: - CF gram stain and culture from tracheal aspirate, ordered - CBC with diff, CMP, IgE - Exchange inner cannula - Perform capping trial today, spoke to RT and RN at [facility] - Consult speech therapy for passy daxa valve - Continue home duonebs and budesonide nebs - Change to nasal canula O2 when capping trial being performed, if patient tolerates that well and if secretions are manageable, will plan to decannulate at bedside in the next 24-48 hours CATERINA Prince Pulmonary and Critical Care Fellow [facility] Thank you for allowing Pulmonary to participate in the care of this patient. This patient was staffed with Dr. Lai as the attending physician. [1] Past Medical History: Diagnosis Date (HFpEF) heart failure with preserved ejection fraction Anxiety COPD (chronic obstructive pulmonary disease) GERD (gastroesophageal reflux disease) Heart attack (CMS/HCC) Hyperlipidemia Hypertension Nerve pain Paroxysmal atrial fibrillation (CMS/HCC) Pericardial effusion Peripheral edema [2] Past Surgical History: Procedure Laterality Date CHOLECYSTECTOMY HYSTERECTOMY STOMACH SURGERY TRACHEOSTOMY TUBE PLACEMENT [3] [4] Current Facility-Administered Medications Medication Dose Route Frequency Provider Last Rate Last Admin albuterol (Proventil) (2.5 MG/3ML) 0.083% nebulizer solution 2.5 mg 2.5 mg Nebulization TID Lukas Darnell MD amiodarone (Pacerone) tablet 200 mg 200 mg Oral BID Lukas Darnell MD bumetanide (Bumex) tablet 2 mg 2 mg Oral BID Lukas Darnell MD divalproex (Depakote) DR tablet 250 mg 250 mg Oral TID Lukas Darnell MD [START ON 05/15/2025] ferrous sulfate EC tablet 324 mg 324 mg Oral Daily with breakfast Lukas Darnell MD [START ON 05/15/2025] pantoprazole (Protonix) EC tablet 40 mg 40 mg Oral Daily with breakfast Lukas Darnell MD risperiDONE (RisperDAL) tablet 2 mg 2 mg Oral BID Lukas Darnell MD rosuvastatin (Crestor) tablet 10 mg 10 mg Oral Daily Lukas Darnell MD sodium chloride 0.9 % flush 10 mL 10 mL Intravenous q12h Luksa Darnell MD And sodium chloride 0.9 % flush 10 mL 10 mL Intravenous PRN Lukas Darnell MD Cosigned by Nikita Lai MD at 05/15/2025 6:22 PM EDT Associated attestation - Nikita Lai MD - 05/15/2025 6:22 PM EDT I saw and evaluated the patient with the resident/fellow. I discussed the case with the resident/fellow and agree with the findings and plan as documented. documented in this encounter Plan of Treatment Upcoming Encounters Date Type Department Care Team (Late st Contact Info) Description 08/20/2025 11:40 AM EST Office Visit [facility] [address], [address] [place] [address] Nikita Lai MD [address] [place] [address] Scheduled Referrals Name Type Priority Associated Diagnoses Orde r Schedule Ambulatory referral to NON Speech Therapy Outpatient Referral Routine Encounter for attention to tracheostomy 1 Occurrences starting 05/17/2025 until 11/18/2026 documented as of this encounter Procedures Procedure Name Priority Date/Time Associated Diagnosis Comments TRACHEOSTOMY REPLACEMENT Routine 05/17/2025 11:19 AM EDT Encounter for attention to tracheostomy POCT GLUCOSE METER UNSOLICITED RESULTS Routine 05/17/2025 7:59 AM EDT BLOOD GAS PANEL, VENOUS Routine 05/17/2025 6:19 AM EDT OXYGEN THERAPY Routine 05/16/2025 8:00 PM EDT QUANTITATIVE BAL/PAL/BRONCH WASH CULTURE AND GRAM STAIN Routine 05/16/2025 2:47 PM EDT FL MODIFIED BARIUM SWALLOW Routine 05/16/2025 2:10 PM EDT OXYGEN THERAPY Routine 05/16/2025 8:00 AM EDT OXYGEN THERAPY Routine 05/15/2025 8:[address] CHEST WO IV CONTRAST Routine 05/15/2025 1:51 PM EDT POCT GLUCOSE METER UNSOLICITED RESULTS Routine 05/15/2025 12:04 PM EDT OXYGEN THERAPY Routine 05/15/2025 8:00 AM EDT VITAMIN D 25 HYDROXY Routine 05/15/2025 2:09 AM EDT OXYGEN THERAPY Routine 05/14/2025 8:00 PM EDT XR CHEST 1 VIEW STAT 05/14/2025 6:52 PM EDT BLOOD GAS PANEL, VENOUS Routine 05/14/2025 5:40 PM EDT OXYGEN THERAPY Routine 05/14/2025 5:21 PM EDT OXYGEN THERAPY Routine 05/14/2025 5:21 PM EDT IGE ANTIBODY IGG Routine 05/14/2025 4:28 PM EDT PROCALCITONIN, PLASMA Add-On 05/14/2025 4:17 PM EDT CBC WITH AUTO DIFFERENTIAL Routine 05/14/2025 4:17 PM EDT PHOSPHORUS, PLASMA Routine 05/14/2025 4: 17 PM EDT MAGNESIUM, PLASMA Routine 05/14/2025 4:1 7 PM EDT COMPREHENSIVE METABOLIC PANEL, PLASMA Routine 05/14/2025 4:17 PM EDT INSERT PERIPHERAL IV STAT 05/14/2025 4:14 PM EDT CYSTIC FIBROSIS RESPIRATORY CULTURE AND GRAM STAIN Routine 05/14/2025 3:57 PM EDT documented in this encounter Results * Tracheostomy Replacement (05/17/2025 11:19 AM EDT) Narrative Nikita Lai MD - 05/17/2025 11:19 AM EDT Nikita Lai MD 05/17/2025 8:08 PM Tracheostomy Replacement Performed by: Perla Arita MBBS Authorized by: Jaylon Lovett MD Consent: Verbal consent obtained Risks and benefits: risks, benefits and alternatives were discussed Consent given by: patient and guardian Patient understanding: patient states understanding of the procedure being performed Patient consent: the patient's understanding of the procedure matches consent given Procedure consent: procedure consent matches procedure scheduled Relevant documents: relevant documents present and verified Test results: test results available and properly labeled Site marked: the operative site was marked Imaging studies: imaging studies available Required items: required blood products, implants, devices, and special equipment available Patient identity confirmed: arm band Time out: Immediately prior to procedure a time out was called to verify the correct patient, procedure, equipment, office support assistant and site/side marked as required. Indications: routine and obstruction Local anesthesia used: no Anesthesia: Local anesthesia used: no Sedation: Patient sedated: no Tube type: single cannula Tube cuff: cuffless Tube size: 6.0 mm Patient tolerance: patient tolerated the procedure well with no immediate complications Jaylon Lovett MD IN CLINIC/BEDSIDE ORDERABLES Final Result * POCT glucose meter (05/17/2025 7:59 AM EDT) POCT Glucose 90 74 - 99 mg/dL 05/17/2025 8:09 AM EDT [facility] Comment:Accuracy of a glucos e result obtained from a capillary whole blood specimen relies upon adequate, non-compromised capillary blood flow. If the capillary glucose result is not consistent with the patient's clinical signs and symptoms, glucose testing should be repeated with either an arterial or venous sample on the glucometer or sent to the main labortory for testing. Comment 05/17/2025 8:09 AM EDT [facility] Grape Pruner ID Kitty Nava 8:09 AM EDT [facility] Device ID [id number] 05/17/2025 8:09 AM EDT [facility] Specimen Type POC Capillary 05/17/2025 8:09 AM EDT [facility] Blood Capillary blood specimen / Unknown 05/17/2025 7:59 AM EDT 05/17/2025 8:09 AM EDT Jaylon Lovett MD LAB POINT OF CARE TE ST DOCKED DEVICE UNSOLICITED RESULTS Final Result [facility] [address] [place] [id number] * (ABNORMAL) Blood gas panel, venous (05/17/2025 6:19 AM EDT) pH, Venous 7.39 7.32 - 7.43 LAB HEMATOLOGY METHOD 05/17/2025 6:29 AM EDT [facility] pCO2, Venous 68(HH) 37 - 52 mmHg LAB HEMATOLOGY METHOD 05/17/2025 6:29 AM EDT [facility] pO2, Venous 50(H) 25 - 40 mmHg LAB HEMATOLOGY METHOD 05/17/2025 6:29 AM EDT [facility] SO2, Measured, Venous 83(H) 65 - 80 % LAB HEMATOLOGY METHOD 05/17/2025 6:29 AM EDT [facility] Base Excess, Venous 13.8(H) -2.0 - 3.0 mmol/L LAB HEMATOLOGY METHOD 05/17/2025 6:29 AM EDT [facility] Bicarbonate, Calculated, Venous 41(H) 22 - 26 mmol/L LAB HEMATOLOGY METHOD 05/17/2025 6:29 AM EDT [facility] Hematocrit, Whole Blood 28.9(L) 34.0 - 45.0 % LAB HEMATOLOGY METHOD 05/17/2025 6:29 AM EDT [facility] Sodium, Whole Blood 136 136 - 145 mmol/L LAB HEMATOLOGY METHOD 05/17/2025 6:29 AM EDT [facility] Potassium, Whole Blood 3.6 3.6 - 4.9 mmol/L LAB HEMATOLOGY METHOD 05/17/2025 6:29 AM EDT [facility] Chloride, Whole Blood 88(L) 97 - 107 mmol/L LAB HEMATOLOGY METHOD 05/17/2025 6:29 AM EDT [facility] Glucose, Whole Blood 83 74 - 99 mg/dL LAB HEMATOLOGY METHOD 05/17/2025 6:29 AM EDT [facility] Lactate, Venous, Whole Blood 0.8 0.5 - 2.2 mmol/L LAB HEMATOLOGY METHOD 05/17/2025 6:29 AM EDT [facility] Ionized Calcium, Whole Blood 4.3(L) 4.6 - 5.1 mg/dL LAB HEMATOLOGY METHOD 05/17/2025 6:29 AM EDT [facility] Blood Venous blood specimen / Unknown Venipuncture / Unknown 05/17/2025 6:19 AM EDT 05/17/2025 6:25 AM EDT us Jaylon Lovett MD LAB BLOOD ORDERABLES Final Re sult [facility] [address] [place] [address] * (ABNORMAL) Quantitative BAL/PAL/Bronch Wash Culture and Gram StainProtected Alveolar Lavage (05/16/2025 2:47 PM EDT) Culture >=100,000 CFU/mL Mixed urogenital, fecal, or skin devonte present. SARAH 05/24/2025 10:01 AM EDT [facility] Comment:The organism value f or this result has been updated. These results have been appended to the previously preliminary verified report. Culture [id number] CFU/mL Pseudomonas aeruginosa(A) SARAH 05/24/2025 10:01 AM EDT [facility] Comment: This result was determined by [employer] tof mass spectrometry using the Vopium database and is for research use only. The organism value for this result has been updated. These results have been appended to the previously preliminary verified report. Culture [id number] CFU/mL Moraxella catarrhalis (formerly Moraxella_sg_Branham nivia catarrhalis)(A) SARAH 05/24/2025 10:01 AM EDT [facility] Comment: This isolate has been identified using the FDA Approved [employer] Spontoyper CA System The organism value for this result has been updated. These results have been appended to the previously preliminary verified report. Culture [id number] CFU/mL - biotype 2 Pseudomonas aeruginosa(A) SARAH 05/24/2025 10:01 AM EDT [facility] Comment: This isolate has been identified using the FDA Approved [employer] Biotyper CA System The organism value for this result has been updated. These results have been appended to the previously preliminary verified report. Gram Stain Result Few Polymorphonuclear leukocytes 05/24/2025 10:01 AM EDT [facility] Gram Stain Result No organisms seen 05/24/2025 10:01 AM EDT [facility] Protected Alveolar Lavage (Protected Alveolar Lavage) 05/16/2025 2:47 PM EDT 05/16/2025 4:47 PM EDT Narrative Organism Antibiotic Method Susceptibility Pseudomonas aeruginosa Aztreonam ETEST 0.75 ug/ml: Susceptible Pseudomonas aeruginosa Cefepime ETEST 12.0 ug/ml: Intermediate Pseudomonas aeruginosa Levofloxacin ETEST 1.0 ug/ml: Susceptible Pseudomonas aeruginosa Meropenem ETEST 0.25 ug/ml: Susceptible Pseudomonas aeruginosa Piperacillin/Tazobactam ETEST 1.5 ug/ml: Susceptible Pseudomonas aeruginosa Tobramycin ETEST 1.5 ug/ml: Intermediate Comment:These result s have been appended to a previously final verified report. Moraxella catarrhalis (formerly Moraxella_sg_Branhamella catarrhalis) Beta Lactamase Positive Comment:This organism is pre dictably susceptible to ampicillin/sulbactam or amoxicillin/clavulanate. Pseudomonas aeruginosa Aztreonam SARAH <=2 ug/ml: Susceptible Pseudomonas aeruginosa Cefepime SARAH 8 ug/ml: Susceptible Pseudomonas aeruginosa Levofloxacin SARAH 1 ug/ml: Susceptible Pseudomonas aeruginosa Meropenem SARAH <=0.5 ug/ml: Susceptible Pseudomonas aeruginosa Piperacillin/Tazobactam SARAH <=2/4 ug/ml: Susceptible Pseudomonas aeruginosa Tobramycin ETEST 1.5 ug/ml: Intermediate Nikita Lai MD LAB MICROBIOLOGY - GENERA L ORDERABLES Final Result [facility] [address] [place] [address] * FL Modified Barium Swallow (05/16/2025 2:10 PM EDT) Anatomical Region Laterality Modality Esophagus, stomach and duodenum Digital Radiography Impressions 05/16/2025 5:41 PM EDT No penetration or aspiration. Please see separate note by Speech therapy team for dietary recommendations. CRITICAL RESULT: No. COMMUNICATION: Per this written report. Drafted by Brett Camacho MD on 05/16/2025 5:40 PM Final report signed by Brett Camacho MD on 05/16/2025 5:41 PM Narrative 05/16/2025 5:41 PM EDT CLINICAL INDICATION: dysphagia TECHNIQUE: Modified barium swallow was performed utilizing video fluoroscopy in conjunction with the Speech Pathology team. The patient ingested barium media of varying consistencies. Fluoroscopy Time: 1.5 minutes.. COMPARISON: None. FINDINGS: Swallowing: No penetration or aspiration of thin barium, barium nectar, barium pudding, or barium cracker. Procedure Note Brett Camacho MD - 05/16/2025 CLINICAL INDICATION: dysphagia TECHNIQUE: Modified barium swallow was performed utilizing video fluoroscopy inconjunction with the Speech Pathology team. The patient ingested bariummedia of varying consistencies. Fluoroscopy Time: 1.5 minutes.. COMPARISON: None. FINDINGS: Swallowing: No penetration or aspiration of thin barium, barium nectar,barium pudding, or barium cracker. IMPRESSION: No penetration or aspiration. Please see separate note by Speech therapy team for dietaryrecommendations. CRITICAL RESULT: No. COMMUNICATION: Per this written report. Drafted by Brett Camacho MD on 05/16/2025 5:40 PM Final report signed by Brett Camacho MD on 05/16/2025 5:41 PM Jaylon Lovett MD IMG FLUOROSCOPY PROCEDURES Fi nal Result * CT Chest wo IV Contrast (05/15/2025 1:51 PM EDT) Anatomical Region Laterality Modality Chest Computed Tomogra phy Impressions 05/15/2025 1:58 PM EDT Persistent small loculated right pleural effusion and trace left effusion with right greater than left basilar atelectasis/round atelectasis. Interval development of clusters of tiny nodules in the lingula and right upper lobe which are suspicious for aspiration. Increased bronchial wall thickening in bilateral lower lobes with some mucous plugging. CRITICAL RESULT: No. COMMUNICATION: Per this written report. Drafted by Nabila Pham MD on 05/15/2025 1:54 PM Final report signed by Nabila Pham MD on 05/15/2025 1:58 PM Narrative 05/15/2025 1:58 PM EDT CLINICAL INDICATION: Respiratory illness, nondiagnostic xray TECHNIQUE: Imaging of the chest was performed from thoracic inlet through upper abdomen, using spiral technique, without administration of IV contrast. Reformatted images in the coronal and sagittal planes were generated from the axial data set to facilitate diagnostic accuracy. Total DLP (Dose-Length Product): 339.98 mGy.cm. Please note: The reported value represents the total of one or more individual components during the CT acquisition on this date and at this time, and as such, the same value may appear in more than one CT report depending on the interpreting/reporting physicians. COMPARISON: Outside CT from 03/21/2025. FINDINGS: Chest: Lack of IV contrast limits evaluation of thoracic organs and vessels. Aorta/Vessels: Thoracic aorta is atherosclerotic. Pleural/Pericardial Space: No pneumothorax. Small loculated right effusion and trace left pleural effusions with areas of pleural thickening are unchanged. No pericardial effusion. Lymph Nodes: No lymphadenopathy within the chest. Lungs: Tracheostomy tube terminates in mid thoracic trachea. Increased Bronchial wall thickening in bilateral lower lobes with areas of mucous plugging. Clusters of tiny nodularities in the lingula, right upper lobe are seen. Small right greater than left basilar consolidations representing atelectasis/round atelectasis. Mediastinum: Thyromegaly with no discrete nodule Chest Wall: No chest wall hematoma or contusion. Bones: Advanced degenerative change in the spine and shoulders. Fracture deformity in the proximal left humerus there is also deformity in the proximal right humerus. Upper Abdomen: Unremarkable. Procedure Note Nabila Pham MD - 05/15/2025 CLINICAL INDICATION: Respiratory illness, nondiagnostic xray TECHNIQUE: Imaging of the chest was performed from thoracic inlet through upperabdomen, using spiral technique, without administration of IV contrast.Reformatted images in the coronal and sagittal planes were generated fromthe axial data set to facilitate diagnostic accuracy. Total DLP (Dose-Length Product): 339.98 mGy.cm. Please note: The reportedvalue represents the total of one or more individual components during theCT acquisition on this date and at this time, and as such, the same valuemay appear in more than one CT report depending on theinterpreting/reporting physicians. COMPARISON: Outside CT from 03/21/2025. FINDINGS: Chest: Lack of IV contrast limits evaluation of thoracic organs and vessels. Aorta/Vessels: Thoracic aorta is atherosclerotic. Pleural/Pericardial Space: No pneumothorax. Small loculated right effusionand trace left pleural effusions with areas of pleural thickening areunchanged. No pericardial effusion. Lymph Nodes: No lymphadenopathy within the chest. Lungs: Tracheostomy tube terminates in mid thoracic trachea. IncreasedBronchial wall thickening in bilateral lower lobes with areas of mucousplugging. Clusters of tiny nodularities in the lingula, right upper lobeare seen. Small right greater than left basilar consolidationsrepresenting atelectasis/round atelectasis. Mediastinum: Thyromegaly with no discrete nodule Chest Wall: No chest wall hematoma or contusion. Bones: Advanced degenerative change in the spine and shoulders. Fracturedeformity in the proximal left humerus there is also deformity in theproximal right humerus. Upper Abdomen: Unremarkable. IMPRESSION: Persistent small loculated right pleural effusion and trace left effusionwith right greater than left basilar atelectasis/round atelectasis.Interval development of clusters of tiny nodules in the lingula and rightupper lobe which are suspicious for aspiration. Increased bronchial wallthickening in bilateral lower lobes with some mucous plugging. CRITICAL RESULT: No. COMMUNICATION: Per this written report. Drafted by Nabila Pham MD on 05/15/2025 1:54 PM Final report signed by Nabila Pham MD on 05/15/2025 1:58 PM us Jaylon Lovett MD IMG CT PROCEDURES Final Resul t * POCT glucose meter (05/15/2025 12:04 PM EDT) POCT Glucose 96 74 - 99 mg/dL 05/15/2025 12:05 PM EDT [facility] Comment:Accuracy of a glucos e result obtained from a capillary whole blood specimen relies upon adequate, non-compromised capillary blood flow. If the capillary glucose result is not consistent with the patient's clinical signs and symptoms, glucose testing should be repeated with either an arterial or venous sample on the glucometer or sent to the main labortory for testing. Comment 05/15/2025 12:05 PM EDT [facility] Grape Pruner ID Kitty Nava 12:05 PM EDT [facility] Device ID [id number] 05/15/2025 12:05 PM EDT [facility] Specimen Type POC Capillary 05/15/2025 12:05 PM EDT [facility] Blood Capillary blood specimen / Unknown 05/15/2025 12:04 PM EDT 05/15/2025 12:05 PM EDT us Lukas Darnell MD LAB POINT OF CARE TE ST DOCKED DEVICE UNSOLICITED RESULTS Final Result [facility] [address] [place] [id number] * (ABNORMAL) Vitamin D 25 Hydroxy (05/15/2025 2:09 AM EDT) Vitamin D 25 Hydroxy 16.5(L) 20.0 - 80.0 ng/mL 05/15/2025 4:55 AM EDT [facility] Blood Venous blood specimen / Unknown Venipuncture / Unknown 05/15/2025 2:09 AM EDT 05/15/2025 2:16 AM EDT Narrative [facility] - 05/15/2025 4:55 AM EDT Testing performed on [employer], standardized against NIST SRM 2972. When testing samples from patients whose predominant form of vitamin D is vitamin D2, such as patients receiving vitamin D2 supplementation, results that are subtherapeutic should be confirmed with another method, such as LC-MS/MS, before being used for patient management. Vitamin D, 25-Hydroxy reference range, age 18 years and up: Deficiency: <12 ng/mL Insufficiency: 12 to 19 ng/mL Sufficiency: 20 to 80 ng/mL Possible toxicity: >100 ng/mL us Lukas Darnell MD LAB BLOOD ORDERABLES Final Resul t [facility] [address] [place] [address] * XR Chest 1 View (05/14/2025 6:52 PM EDT) Anatomical Region Laterality Modality Chest Digital Radiogra phy Impressions 05/14/2025 6:58 PM EDT Right greater than left lower lung airspace disease. CRITICAL RESULT: No. COMMUNICATION: Per this written report. Drafted by Mariana Thornton MD on 05/14/2025 6:57 PM Final report signed by Mariana Thornton MD on 05/14/2025 6:58 PM Narrative 05/14/2025 6:58 PM EDT CLINICAL INDICATION: SOB TECHNIQUE: XR CHEST 1 VIEW COMPARISON: Outside CT March 21, 2025 FINDINGS: Right lower lung is excluded from the image. Tracheostomy projects in appropriate position. Right greater than left lower lung airspace disease. No pneumothorax. Prominent cardiac silhouette. Procedure Note Mariana Thornton MD - 05/14/2025 CLINICAL INDICATION: SOB TECHNIQUE: XR CHEST 1 VIEW COMPARISON: Outside CT March 21, 2025 FINDINGS: Right lower lung is excluded from the image. Tracheostomy projects inappropriate position. Right greater than left lower lung airspace disease.No pneumothorax. Prominent cardiac silhouette. IMPRESSION: Right greater than left lower lung airspace disease. CRITICAL RESULT: No. COMMUNICATION: Per this written report. Drafted by Mariana Thornton MD on 05/14/2025 6:57 PM Final report signed by Mariana Thornton MD on 05/14/2025 6:58 PM Lukas Darnell MD IMG XR PROCEDURES Final Result * (ABNORMAL) Blood gas panel, venous (05/14/2025 5:40 PM EDT) pH, Venous 7.44(H) 7.32 - 7.43 LAB HEMATOLOGY METHOD 05/14/2025 5:49 PM EDT [facility] pCO2, Venous 67(HH) 37 - 52 mmHg LAB HEMATOLOGY METHOD 05/14/2025 5:49 PM EDT [facility] pO2, Venous 21(L) 25 - 40 mmHg LAB HEMATOLOGY METHOD 05/14/2025 5:49 PM EDT [facility] SO2, Measured, Venous 29(L) 65 - 80 % LAB HEMATOLOGY METHOD 05/14/2025 5:49 PM EDT [facility] Base Excess, Venous 18.4(H) -2.0 - 3.0 mmol/L LAB HEMATOLOGY METHOD 05/14/2025 5:49 PM EDT [facility] Bicarbonate, Calculated, Venous 45(H) 22 - 26 mmol/L LAB HEMATOLOGY METHOD 05/14/2025 5:49 PM EDT [facility] Hematocrit, Whole Blood 30.0(L) 34.0 - 45.0 % LAB HEMATOLOGY METHOD 05/14/2025 5:49 PM EDT [facility] Sodium, Whole Blood 141 136 - 145 mmol/L LAB HEMATOLOGY METHOD 05/14/2025 5:49 PM EDT [facility] Potassium, Whole Blood 3.4(L) 3.6 - 4.9 mmol/L LAB HEMATOLOGY METHOD 05/14/2025 5:49 PM EDT [facility] Chloride, Whole Blood 88(L) 97 - 107 mmol/L LAB HEMATOLOGY METHOD 05/14/2025 5:49 PM EDT [facility] Glucose, Whole Blood 88 74 - 99 mg/dL LAB HEMATOLOGY METHOD 05/14/2025 5:49 PM EDT [facility] Lactate, Venous, Whole Blood 1.1 0.5 - 2.2 mmol/L LAB HEMATOLOGY METHOD 05/14/2025 5:49 PM EDT [facility] Ionized Calcium, Whole Blood 4.2(L) 4.6 - 5.1 mg/dL LAB HEMATOLOGY METHOD 05/14/2025 5:49 PM EDT [facility] Blood Venous blood specimen / Unknown Venipuncture / Unknown 05/14/2025 5:40 PM EDT 05/14/2025 5:48 PM EDT us Lukas Darnell MD LAB BLOOD ORDERABLES Final Resul t Performing Organization Address [facility] Co de Phone Number [facility] [address] [place] [address] * IgE Antibody, IgG (05/14/2025 4:28 PM EDT) [facility] Signature IgE Ab IgG <6 <168 ng/mL 05/24/2025 11:25 AM EDT [facility] ([place]ATIE) Comment: This test was developed and its analytical performance characteristics have been determined by [facility]. It has not been cleared or approved by the FDA. This assay has been validated pursuant to the CLIA regulations and is used for clinical purposes. Venous blood specimen / Unknown 05/14/2025 4:28 PM EDT 05/14/2025 4:58 PM EDT Narrative [facility] - 05/24/2025 11:25 AM EDT Performing Organization Information: Site ID: [id number] Name: [email or web address] Jazmine Salas Address: [address] [place] [address] Director: Julian Bender MD, PhD us Lukas Darnell MD LAB BLOOD ORDERABLES Final Resul t Performing Organization Address City/[facility]/ZIP Co de Phone Number [facility] [place] [facility]) ([place]ATIE) [facility] [address] [place] [address] * (ABNORMAL) Procalcitonin (05/14/2025 4:17 PM EDT) Procalcitonin, Plasma 0.09(H) <0.09 ng/mL 05/14/2025 7:38 PM EDT [facility] Blood Venous blood specimen / Unknown Venipuncture / Unknown 05/14/2025 4:17 PM EDT 05/14/2025 4:48 PM EDT Narrative [facility] - 05/14/2025 7:38 PM EDT Procalcitonin concentrations in healthy individuals are <0.09 ng/mL. Published data support the following interpretive risk assessment: An elevated procalcitonin result does not always indicate sepsis. Various non-infectious conditions are known to increase procalcitonin. Results should be considered in the context of clinical symptoms and other laboratory tests. Procalcitonin >2.0 ng/mL: Concentrations >2.0 ng/mL on the first day of ICU admission are associated with a higher risk of progression to severe sepsis and/or septic shock. The change in PCT over time may help predict 28 day mortality risk. Please consult [email or web address] for more information. Test performed at [facility]. us Lukas Darnell MD LAB BLOOD ORDERABLES Final Resul t [facility] [address] [place] [address] * (ABNORMAL) Phosphorus (05/14/2025 4:17 PM EDT) Phosphorus, Plasma 4.6(H) 2.5 - 4.5 mg/dL 05/14/2025 5:58 PM EDT [facility] Blood Venous blood specimen / Unknown Venipuncture / Unknown 05/14/2025 4:17 PM EDT 05/14/2025 4:48 PM EDT us Lukas Darnell MD LAB BLOOD ORDERABLES Final Resul t [facility] [address] [place] [address] * Magnesium (05/14/2025 4:17 PM EDT) Magnesium, Plasma 2.3 1.9 - 2.4 mg/dL 05/14/2025 5:58 PM EDT [facility] Blood Venous blood specimen / Unknown Venipuncture / Unknown 05/14/2025 4:17 PM EDT 05/14/2025 4:48 PM EDT us Lukas Darnell MD LAB BLOOD ORDERABLES Final Resul t Performing Organization Address [facility] Co de Phone Number [facility] [address] [place] [address] * (ABNORMAL) Comprehensive metabolic panel (05/14/2025 4:17 PM EDT) Glucose, Plasma 89 74 - 99 mg/dL 05/14/2025 5:58 PM EDT [facility] BUN, Plasma 24(H) 7 - 21 mg/dL 05/14/2025 5:58 PM EDT [facility] Creatinine, Plasma 0.79 0.60 - 1.10 mg/dL 05/14/2025 5:58 PM EDT [facility] BUN/Creatinine Ratio 30 05/14/2025 5:58 PM EDT [facility] Sodium, Plasma 142 136 - 145 mmol/L 05/14/2025 5:58 PM EDT [facility] Potassium, Plasma 3.4(L) 3.6 - 4.9 mmol/L 05/14/2025 5:58 PM EDT [facility] Chloride, Plasma 93(L) 97 - 107 mmol/L 05/14/2025 5:58 PM EDT [facility] CO2, Plasma 41(HH) 22 - 29 mmol/L 05/14/2025 5:58 PM EDT [facility] Anion Gap 8 6 - 16 mmol/L 05/14/2025 5:58 PM EDT [facility] Total Calcium, Plasma 8.5(L) 8.9 - 10.2 mg/dL 05/14/2025 5:58 PM EDT [facility] Total Protein 7.1 6.3 - 7.9 g/dL 05/14/2025 5:58 PM EDT [facility] Albumin, Plasma 3.6 3.5 - 5.2 g/dL 05/14/2025 5:58 PM EDT [facility] AST, Plasma 18 10 - 35 U/L 05/14/2025 5:58 PM EDT [facility] ALT, Plasma 9(L) 10 - 35 U/L 05/14/2025 5:58 PM EDT [facility] Alkaline Phosphatase, Plasma 88 35 - 104 U/L 05/14/2025 5:58 PM EDT [facility] Total Bilirubin, Plasma <0.2(L) 0.2 - 1.1 mg/dL 05/14/2025 5:58 PM EDT [facility] eGFRcr 89.0 mL/min/1.7 3m*2 05/14/2025 5:58 PM EDT [facility] Comment:Reported eGFRcr in m L/min/1.73m2 is based the CKD-EPI 2020 equation that does not use a race coefficient. Blood Venous blood specimen / Unknown Venipuncture / Unknown 05/14/2025 4:17 PM EDT 05/14/2025 4:48 PM EDT us Lukas Darnell MD LAB BLOOD ORDERABLES Final Resul t [facility] [address] [place] [address] * (ABNORMAL) CBC with differential (hemogram with differential) (05/14/2025 4:17 PM EDT) WBC Count 5.51 3.70 - 10.30 10*3/uL LAB HEMATOLOGY METHOD 05/14/2025 5:03 PM EDT [facility] RBC Count 3.54(L) 3.90 - 5.20 10*6/uL LAB HEMATOLOGY METHOD 05/14/2025 5:03 PM EDT [facility] HGB 9.8(L) 11.2 - 15.7 g/dL LAB HEMATOLOGY METHOD 05/14/2025 5:03 PM EDT [facility] HCT 31.7(L) 34.0 - 45.0 % LAB HEMATOLOGY METHOD 05/14/2025 5:03 PM EDT [facility] Platelet Count 335 155 - 369 10*3/uL LAB HEMATOLOGY METHOD 05/14/2025 5:03 PM EDT [facility] MCV 90 79 - 98 fL LAB HEMATOLOGY METHOD 05/14/2025 5:03 PM EDT [facility] MCH 27.7 26.0 - 32.0 pg LAB HEMATOLOGY METHOD 05/14/2025 5:03 PM EDT [facility] MCHC 30.9 30.7 - 35.5 g/dL LAB HEMATOLOGY METHOD 05/14/2025 5:03 PM EDT [facility] RDW 13.6 11.5 - 14.5 % LAB HEMATOLOGY METHOD 05/14/2025 5:03 PM EDT [facility] MPV 9.3 8.8 - 12.5 fL LAB HEMATOLOGY METHOD 05/14/2025 5:03 PM EDT [facility] nRBC 0.0 <=0.0 per 100 WBCs LAB HEMATOLOGY METHOD 05/14/2025 5:03 PM EDT [facility] Differential Type Automated LAB HEMATOLOGY METHOD 05/14/2025 5:03 PM EDT [facility] Neutrophils % 61 % LAB HEMATOLOGY METHOD 05/14/2025 5:03 PM EDT [facility] Lymphocytes % 26 % LAB HEMATOLOGY METHOD 05/14/2025 5:03 PM EDT [facility] Monocytes % 9 % LAB HEMATOLOGY METHOD 05/14/2025 5:03 PM EDT [facility] Eosinophils % 1 % LAB HEMATOLOGY METHOD 05/14/2025 5:03 PM EDT [facility] Basophils % 1 % LAB HEMATOLOGY METHOD 05/14/2025 5:03 PM EDT [facility] Immature Granulocytes % 2 % LAB HEMATOLOGY METHOD 05/14/2025 5:03 PM EDT [facility] Neutrophils Absolute 3.43 1.60 - 6.10 10*3/uL LAB HEMATOLOGY METHOD 05/14/2025 5:03 PM EDT [facility] Lymphocytes Absolute 1.42 1.20 - 3.90 10*3/uL LAB HEMATOLOGY METHOD 05/14/2025 5:03 PM EDT [facility] Monocytes Absolute 0.49 0.30 - 0.90 10*3/uL LAB HEMATOLOGY METHOD 05/14/2025 5:03 PM EDT [facility] Eosinophils Absolute 0.03 0.00 - 0.50 10*3/uL LAB HEMATOLOGY METHOD 05/14/2025 5:03 PM EDT [facility] Basophils Absolute 0.03 0.00 - 0.10 10*3/uL LAB HEMATOLOGY METHOD 05/14/2025 5:03 PM EDT [facility] Immature Granulocytes Absolute 0.11(H) 0.00 - 0.06 10*3/uL LAB HEMATOLOGY METHOD 05/14/2025 5:03 PM EDT [facility] Blood Venous blood specimen / Unknown Venipuncture / Unknown 05/14/2025 4:17 PM EDT 05/14/2025 4:48 PM EDT Narrative [facility] - 05/14/2025 5:03 PM EDT Therapeutic decision making should be based on absolute values, rather than percentages. us Lukas Darnell MD LAB BLOOD ORDERABLES Final Resul t [facility] [address] [place] [address] * PERIPHERAL IV (SMART[employer] LINK) (05/14/2025 4:14 PM EDT) Narrative Kanchan Galvan RN - 05/14/2025 4:14 PM EDT Kanchan Galvan RN 05/14/2025 4:14 PM Insert peripheral IV Performed by: Kanchan Galvan RN Authorized by: Lukas Darnell MD Hand hygiene: Hand hygiene performed prior to insertion Inserted using aseptic techniques: Yes Preparation: Skin prepped with chg Orientation: Right Location: Forearm Catheter placed: Peripheral IV Catheter size: 20g/2.00in Line Technique: Ultrasound Guidance Number of attempts: 1 IV flushes: Without difficulty and positive blood return noted and IV luer locked Patient tolerance: Patient tolerated the procedure well and there were no complications Patient comfort measures used: Position of comfort and distraction IV site covered with: Transparent semipermeable dressing Education provided to: Patient Comments: Labs collected at time of IV insertion Lukas Darnell MD IV THERAPY ORDERABLES Final Resu lt * (ABNORMAL) Cystic Fibrosis Respiratory Culture and Gram Stain (05/14/2025 3:57 PM EDT) Culture Moderate Growth 11:52 AM EDT [facility] Culture Mixed upper respiratory devonte(A) SARAH 05/19/2025 11:52 AM EDT [facility] Comment:The organism value f or this result has been updated. These results have been appended to the previously preliminary verified report. Culture Proteus vulgaris group(A) SARAH 05/19/2025 11:52 AM EDT [facility] Comment: This isolate has been identified using the FDA Approved Lion [employer] System The organism value for this result has been updated. These results have been appended to the previously preliminary verified report. The organism value for this result has been updated. These results have been appended to the previously preliminary verified report. Culture Morganella morganii(A) SARAH 05/19/2025 11:52 AM EDT [facility] Comment: This isolate has been identified using the FDA Approved Lion Stre[employer] CA System The organism value for this result has been updated. These results have been appended to the previously preliminary verified report. Gram Stain Result Greater than 25 WBC/LPF(A) 05/19/2025 11:52 AM EDT [facility] Gram Stain Result Fewer than 10 Epithelial cells/LPF(A) 05/19/2025 11:52 AM EDT [facility] Gram Stain Result Numerous Gram negative diplococci(A) 05/19/2025 11:52 AM EDT [facility] Gram Stain Result Moderate Gram positive rods(A) 05/19/2025 11:52 AM EDT [facility] Gram Stain Result Moderate Gram positive cocci in pairs(A) 05/19/2025 11:52 AM EDT [facility] Gram Stain Result Few Gram negative rods(A) 05/19/2025 11:52 AM EDT [facility] Sputum Sputum specimen obtained from sputum suction trap / Unknown Non-blood Collection / Unknown 05/14/2025 3:57 PM EDT 05/14/2025 4:10 PM EDT Narrative Organism Antibiotic Method Susceptibility Proteus vulgaris group Amikacin SARAH <=8 ug/ml: Susceptible Proteus vulgaris group Amoxicillin/Clavulanate SARAH >16/8 ug/ml: Resistant Proteus vulgaris group Ampicillin SARAH >16 ug/ml: Resistant Proteus vulgaris group Aztreonam SARAH <=2 ug/ml: Susceptible Proteus vulgaris group Cefazolin SARAH >16 ug/ml: Resistant Proteus vulgaris group Cefepime SARAH <=0.5 ug/ml: Susceptible Proteus vulgaris group Ceftazidime SARAH <=2 ug/ml: Susceptible Proteus vulgaris group Ceftriaxone SARAH 32 ug/ml: Resistant Proteus vulgaris group Ciprofloxacin SARAH <=0.25 ug/ml: Susceptible Proteus vulgaris group Ertapenem SARAH <=0.25 ug/ml: Susceptible Proteus vulgaris group Levofloxacin SARAH <=0.25 ug/ml: Susceptible Proteus vulgaris group Meropenem SARAH <=0.5 ug/ml: Susceptible Proteus vulgaris group Piperacillin/Tazobactam SARAH <=2/4 ug/ml: Susceptible Proteus vulgaris group Tobramycin SARAH 8 ug/ml: Intermediate Proteus vulgaris group Trimethoprim/Sulf amethoxazo le SARAH <=0.5/9.5 ug/ml: Susceptible Proteus vulgaris group Ampicillin/Sulbactam ETEST 6.0 ug/ml: Susceptible Comment:The previously repor patric component Ampicillin/Sulbactam is no longer being reported. Morganella morganii Amikacin SARAH <=8 ug/ml: Susceptible Morganella morganii Amoxicillin/Clavulanate SARAH >16/8 ug/ml: Resistant Morganella morganii Aztreonam SARAH <=2 ug/ml: Susceptible Morganella morganii Cefepime SARAH <=0.5 ug/ml: Susceptible Morganella morganii Ceftazidime SARAH <=2 ug/ml: Susceptible Morganella morganii Ciprofloxacin SARAH <=0.25 ug/ml: Susceptible Morganella morganii Ertapenem SARAH <=0.25 ug/ml: Susceptible Morganella morganii Levofloxacin SARAH <=0.25 ug/ml: Susceptible Morganella morganii Meropenem SARAH <=0.5 ug/ml: Susceptible Morganella morganii Piperacillin/Tazobactam SARAH <=2/4 ug/ml: Susceptible Morganella morganii Tobramycin SARAH <=2 ug/ml: Susceptible Morganella morganii Trimethoprim/Sulfame thoxazo le SARAH <=0.5/9.5 ug/ml: Susceptible us Julio Janet Dean MD LAB MICROBIOLOGY - GENERAL ORDER CAESAR Final Result [facility] [address] [place] [address] documented in this encounter Visit Diagnoses Diagnosis Encounter for attention to tracheostomy- Primary Encounter for attention to tracheostomy Bronchitis Bronchitis, not specified as acute or chronic documented in this encounter Admitting Diagnoses Diagnosis Encounter for attention to tracheostomy documented in this encounter Administered Medications Inactive Administered Medications - up to 3 most recent administrations Medication Order MAR Action Action Date Dose Rate Site acetaminophen (Tylenol) tablet 1,000 mg 1,000 mg, Oral, Once, 1 dose, On Tue05/15/25 at 0615, Routine Given 05/15/2025 5:28 AM EDT 1,000 mg acetaminophen (Tylenol) tablet 1,000 mg 1,000 mg, Oral, Once, 1 dose, On Tue05/15/25 at 2115, Routine Given 05/15/2025 9:04 PM EDT 1,000 mg acetaminophen (Tylenol) tablet 650 mg 650 mg, Oral, Once, 1 dose, On Tue05/16/25 at 2200, Routine Given 05/16/2025 10:02 PM EDT 650 mg albuterol (Proventil) (2.5 MG/3ML) 0.083% nebulizer solution 2.5 mg 2.5 mg, Nebulization, 3 times daily, First dose on Tue05/14/25 at 1600, Until Discontinued, Routine Given 05/17/2025 2:46 PM EDT 2.5 mg Given 05/17/2025 8:36 AM EDT 2.5 mg Given 05/16/2025 8:22 PM EDT 2.5 mg amiodarone (Pacerone) tablet 200 mg 200 mg, Oral, 2 times daily, First dose on Tue05/14/25 at 2100, Until Discontinued, Routine Given 05/17/2025 8:12 AM EDT 200 mg Given 05/16/2025 8:20 PM EDT 200 mg Given 05/16/2025 8:02 AM EDT 200 mg apixaban (Eliquis) tablet 5 mg 5 mg, Oral, 2 times daily, First dose on Tue05/14/25 at 2100, Until Discontinued, Routine Given 05/17/2025 8:12 AM EDT 5 mg Given 05/16/2025 8:19 PM EDT 5 mg Given 05/16/2025 8:02 AM EDT 5 mg barium sulfate (Varibar [place]) 40 % suspension 120 mL 120 mL, Oral, Once in imaging, 1 dose, Starting on Neva 05/16/25 at 1453, Until Neva 05/16/25 at 1453, Routine, Imaging Protocol Orders Given 05/16/2025 2:53 PM EDT 120 mL barium sulfate (Varibar Pudding) 40 % oral paste 15 mL 15 mL, Oral, Once in imaging, 1 dose, Starting on Neva 05/16/25 at 1453, Until Neva 05/16/25 at 1453, Routine, Imaging Protocol Orders Given 05/16/2025 2:53 PM EDT 15 mL barium sulfate (Varibar THIN Liquid) 40 % suspension 120 mL 120 mL, Oral, Once in imaging, 1 dose, Starting on Neva 05/16/25 at 1453, Until Neva 05/16/25 at 1453, Routine, Imaging Protocol Orders Given 05/16/2025 2:53 PM EDT 120 mL budesonide (Pulmicort) 0.5 MG/2ML nebulizer solution 0.5 mg 0.5 mg, Nebulization, 2 times daily, First dose on Tue05/14/25 at 2100, Until Discontinued, Routine Given 05/17/2025 8:35 AM EDT 0.5 mg Given 05/16/2025 8:34 PM EDT 0.5 mg Given 05/16/2025 8:15 AM EDT 0.5 mg bumetanide (Bumex) tablet 2 mg 2 mg, Oral, 2 times daily (0900 & 1500), First dose on Tue05/14/25 at 1600, Until Discontinued, Routine Given 05/14/2025 4:36 PM EDT 2 mg bumetanide (Bumex) tablet 2 mg 2 mg, Oral, Daily, First dose (after last modification) on Tue05/15/25 at 0900, Until Discontinued, Routine Given 05/17/2025 8:12 AM EDT 2 mg Given 05/16/2025 8:03 AM EDT 2 mg Given 05/15/2025 8:10 AM EDT 2 mg divalproex (Depakote) DR tablet 250 mg 250 mg, Oral, 3 times daily, First dose on Tue05/14/25 at 1600, Until Discontinued Given 05/15/2025 9:38 AM EDT 250 mg Given 05/14/2025 8:48 PM EDT 250 mg Given 05/14/2025 4:37 PM EDT 250 mg divalproex (Depakote) DR tablet 500 mg 500 mg, Oral, Every 8 hours scheduled, First dose (after last modification) on Tue05/15/25 at 2200, Until Discontinued Given 05/17/2025 3:00 PM EDT 500 mg Given 05/17/2025 5:13 AM EDT 500 mg Given 05/16/2025 10:02 PM EDT 500 mg ferrous sulfate EC tablet 324 mg 324 mg (rounded from 325 mg), Oral, Daily with breakfast, First dose on Tue05/15/25 at 0800, Until Discontinued Given 05/17/2025 8:12 AM EDT 324 mg Given 05/16/2025 8:02 AM EDT 324 mg Given 05/15/2025 8:10 AM EDT 324 mg melatonin tablet 6 mg 6 mg, Nasogastric, Nightly PRN, Starting on Tue05/14/25 at 1721, Until Tue05/17/25 at 2120, Routine, sleep Given 05/16/2025 10:02 PM EDT 6 mg Given 05/15/2025 8:17 PM EDT 6 mg Given 05/15/2025 2:02 AM EDT 6 mg ondansetron (Zofran) 4 MG/5ML solution 4 mg 4 mg, Oral, Every 6 hours PRN, Starting on Tue05/17/25 at 0855, Until Tue05/17/25 at 2120, Routine, nausea, vomiting ondansetron (Zofran) injection 4 mg 4 mg, Intravenous, Every 6 hours PRN, Starting on Tue05/17/25 at 0855, Until Tue05/17/25 at 2120, Routine, vomiting, nausea ondansetron ODT (Zofran-ODT) disintegrating tablet 4 mg 4 mg, Oral, Once, 1 dose, On Tue05/15/25 at 2000, Routine Given 05/15/2025 8:17 PM EDT 4 mg ondansetron ODT (Zofran-ODT) disintegrating tablet 4 mg 4 mg, Oral, Every 6 hours PRN, Starting on Tue05/17/25 at 0855, Until Tue05/17/25 at 2120, Routine, nausea, vomiting Given 05/17/2025 9:22 AM EDT 4 mg pantoprazole (Protonix) EC tablet 40 mg 40 mg, Oral, Daily with breakfast, First dose on Tue05/15/25 at 0800, Until Discontinued, Routine Given 05/17/2025 8:12 AM EDT 40 mg Given 05/16/2025 8:02 AM EDT 40 mg Given 05/15/2025 8:10 AM EDT 40 mg risperiDONE (RisperDAL) tablet 2 mg 2 mg, Oral, 2 times daily, First dose on Tue05/14/25 at 2100, Until Discontinued, Routine Given 05/17/2025 8:12 AM EDT 2 mg Given 05/16/2025 8:20 PM EDT 2 mg Given 05/16/2025 8:02 AM EDT 2 mg rosuvastatin (Crestor) tablet 10 mg 10 mg, Oral, Daily, First dose on Tue05/14/25 at 1600, Until Discontinued Given 05/17/2025 8:12 AM EDT 10 mg Given 05/16/2025 8:02 AM EDT 10 mg Given 05/15/2025 8:10 AM EDT 10 mg sodium chloride 0.9 % flush 10 mL 10 mL, Intravenous, Every 12 hours, First dose on Tue05/14/25 at 1600, Until Discontinued, Routine Given 05/17/2025 5:17 AM EDT 10 mL Given 05/16/2025 4:05 PM EDT 10 mL Given 05/15/2025 4:46 PM EDT 10 mL sodium chloride 0.9 % flush 10 mL 10 mL, Intravenous, As needed, Starting on Tue05/14/25 at 1506, Until Tue05/17/25 at 2120, Routine, line care sodium chloride 3 % nebulizer solution 3 mL 3 mL, Nebulization, 2 times daily, First dose on Neva 05/16/25 at 0945, Until Discontinued, Routine Given 05/17/2025 8:34 AM EDT 3 mL Given 05/16/2025 8:31 PM EDT 3 mL Given 05/16/2025 9:14 AM EDT 3 mL documented in this encounter Active and Recently Administered Medications Times are shown in EDT. Scheduled Medication Order 05/15/2025 05/16/2025 05/17/2025 acetaminophen (Tylenol) tablet 1,000 mg (COMPLETED) 1,000 mg, Oral, Once, 1 dose, On Tue05/15/25 at 0615, Routine 0528 (Given - Provider: Rosendo Leiva) acetaminophen (Tylenol) tablet 1,000 mg (COMPLETED) 1,000 mg, Oral, Once, 1 dose, On Tue05/15/25 at 2115, Routine 210 (Given - Provider: Cehrise Lopez RN) acetaminophen (Tylenol) tablet 650 mg (COMPLETED) 650 mg, Oral, Once, 1 dose, On Neva 05/16/25 at 2200, Routine 220 (Given - Provider: Wesley Connolly) albuterol (Proventil) (2.5 MG/3ML) 0.083% nebulizer solution 2.5 mg 2.5 mg, Nebulization, 3 times daily, First dose on Tue05/14/25 at 1600, Until Discontinued, Routine 0901 (Given - Provider: Maximus Del Rosario)1627 (Given - Provider: Maximus Del Rosario)2107 (Given - Provider: Teresa Villalobos) 0815 (Given - Provider: Bethanie Dunaway)1532 (Given - Provider: Bethanie Dunaway)2022 (Given - Provider: Teresa Villalobos) 0836 (Given - Provider: Maximus Del Rosario)1446 (Given - Provider: Maximus Del Rosario)2100 (Canceled Entry - Provider: Automatic Discharge Provider - Comment: Automatically canceled at discontinue of medication order) amiodarone (Pacerone) tablet 200 mg 200 mg, Oral, 2 times daily, First dose on Tue05/14/25 at 2100, Until Discontinued, Routine 0810 (Given - Provider: Milagros Bruno RN)2017 (Given - Provider: Cherise Lopez RN) 08 (Given - Provider: Milagros Bruno RN)2019 (Given - Provider: Wesley Connolly) 08 (Given - Provider: Yaw Okeefe RN)2100 (Canceled Entry - Provider: Automatic Discharge Provider - Comment: Automatically canceled at discontinue of medication order) apixaban (Eliquis) tablet 5 mg 5 mg, Oral, 2 times daily, First dose on Tue05/14/25 at 2100, Until Discontinued, Routine 0810 (Given - Provider: Milagros Bruno RN)2016 (Given - Provider: Cherise Lopez RN) 801 (Given - Provider: Milagros Bruno RN)2018 (Given - Provider: Wesley Connolly) 08 (Given - Provider: Yaw Okeefe RN)2100 (Canceled Entry - Provider: Automatic Discharge Provider - Comment: Automatically canceled at discontinue of medication order) barium sulfate (Varibar [place]) 40 % suspension 120 mL (COMPLETED) 120 mL, Oral, Once in imaging, 1 dose, Starting on Neva 05/16/25 at 1453, Until Neva 05/16/25 at 1453, Routine, Imaging Protocol Orders 1453 (Given - Provider: Brionna Sorensen) barium sulfate (Varibar Pudding) 40 % oral paste 15 mL (COMPLETED) 15 mL, Oral, Once in imaging, 1 dose, Starting on Neva 05/16/25 at 1453, Until Neva 05/16/25 at 1453, Routine, Imaging Protocol Orders 1453 (Given - Provider: Brionna Sorensen) barium sulfate (Varibar THIN Liquid) 40 % suspension 120 mL (COMPLETED) 120 mL, Oral, Once in imaging, 1 dose, Starting on Neva 05/16/25 at 1453, Until Neva 05/16/25 at 1453, Routine, Imaging Protocol Orders 1453 (Given - Provider: Brionna Sorensen) budesonide (Pulmicort) 0.5 MG/2ML nebulizer solution 0.5 mg 0.5 mg, Nebulization, 2 times daily, First dose on Tue05/14/25 at 2100, Until Discontinued, Routine 901 (Given - Provider: Maximus Del Rosario)2112 (Given - Provider: Teresa Villalobos) 814 (Given - Provider: Bethanie Dunaway)2033 (Given - Provider: Teresa Villalobos) 834 (Given - Provider: Maximus Del Rosario)2100 (Canceled Entry - Provider: Automatic Discharge Provider - Comment: Automatically canceled at discontinue of medication order) bumetanide (Bumex) tablet 2 mg 2 mg, Oral, Daily, First dose (after last modification) on Tue05/15/25 at 0900, Until Discontinued, Routine 809 (Given - Provider: Milagros Bruno RN) 802 (Given - Provider: Milagros Bruno RN) 08 (Given - Provider: Yaw Okeefe, LAWRENCE) divalproex (Depakote) DR tablet 250 mg (CANCELED) 250 mg, Oral, 3 times daily, First dose on Tue05/14/25 at 1600, Until Discontinued 937 (Given - Provider: Milagros Bruno RN) divalproex (Depakote) DR tablet 500 mg 500 mg, Oral, Every 8 hours scheduled, First dose (after last modification) on Tue05/15/25 at 2200, Until Discontinued 2103 (Given - Provider: Cherise Lopez RN) 0651 (Given - Provider: Cherise Lopez RN)1604 (Given - Provider: Milagros Bruno RN)220 (Given - Provider: Wesley Connolly) 0513 (Given - Provider: Wesley Connolly)1500 (Given - Provider: Yaw Okeefe, LAWRENCE) ferrous sulfate EC tablet 324 mg 324 mg (rounded from 325 mg), Oral, Daily with breakfast, First dose on Tue05/15/25 at 0800, Until Discontinued 809 (Given - Provider: Milagros Bruno RN) 801 (Given - Provider: Milagros Bruno RN) 08 (Given - Provider: Yaw Okeefe, LAWRENCE) ondansetron ODT (Zofran-ODT) disintegrating tablet 4 mg (COMPLETED) 4 mg, Oral, Once, 1 dose, On Tue05/15/25 at 2000, Routine 2017 (Given - Provider: Cherise Lopez RN) pantoprazole (Protonix) EC tablet 40 mg 40 mg, Oral, Daily with breakfast, First dose on Tue05/15/25 at 0800, Until Discontinued, Routine 0810 (Given - Provider: Milagros Bruno RN) 0802 (Given - Provider: Milagros Bruno RN) 0812 (Given - Provider: Yaw Okeefe RN) risperiDONE (RisperDAL) tablet 2 mg 2 mg, Oral, 2 times daily, First dose on Tue05/14/25 at 2100, Until Discontinued, Routine 0938 (Given - Provider: Milagros Bruno RN)2020 (Given - Provider: Cherise Lopez RN) 08 (Given - Provider: Milagros Bruno RN)2020 (Given - Provider: Wesley Connolly) 0812 (Given - Provider: Yaw Okeefe RN)2100 (Canceled Entry - Provider: Automatic Discharge Provider - Comment: Automatically canceled at discontinue of medication order) rosuvastatin (Crestor) tablet 10 mg 10 mg, Oral, Daily, First dose on Tue05/14/25 at 1600, Until Discontinued 0810 (Given - Provider: Milagros Bruno RN) 08 (Given - Provider: Milagros Bruno RN) 0812 (Given - Provider: Yaw Okeefe RN) sodium chloride 0.9 % flush 10 mL(Linked Group 1) 10 mL, Intravenous, Every 12 hours, First dose on Tue05/14/25 at 1600, Until Discontinued, Routine 0332 (Given - Provider: Rosendo Leiva)1646 (Given - Provider: Milagros Bruno RN) 0520 (Not Given - Provider: Cherise Lopez RN - Reason: Order parameters not met)1605 (Given - Provider: Milagros Bruno RN) 0517 (Given - Provider: Wesley Connolly)1850 (Not Given - Provider: Yaw Okeefe RN - Reason: Loss of IV access) sodium chloride 3 % nebulizer solution 3 mL 3 mL, Nebulization, 2 times daily, First dose on Neva 05/16/25 at 0945, Until Discontinued, Routine 0914 (Given - Provider: Bethanie Dunaway)2030 (Given - Provider: Teresa Villalobos) 08 (Given - Provider: Maximus Del Rosario)2099 (Canceled Entry - Provider: Automatic Discharge Provider - Comment: Automatically canceled at discontinue of medication order) PRN Medication Order 05/15/2025 05/16/2025 05/17/2025 melatonin tablet 6 mg 6 mg, Nasogastric, Nightly PRN, Starting on Tue05/14/25 at 1721, Until Tue05/17/25 at 2120, Routine, sleep 020 (Given - Provider: Rosendo Leiva)2016 (Given - Provider: Cherise Lopez RN) 2201 (Given - Provider: Wesley Connolly) ondansetron (Zofran) 4 MG/5ML solution 4 mg(Linked Group 2) 4 mg, Oral, Every 6 hours PRN, Starting on Tue05/17/25 at 0855, Until Tue05/17/25 at 2120, Routine, nausea, vomiting 0922 (See Alternativ e - Provider: Yaw Okeefe RN) ondansetron (Zofran) injection 4 mg(Linked Group 2) 4 mg, Intravenous, Every 6 hours PRN, Starting on Tue05/17/25 at 0855, Until Tue05/17/25 at 2120, Routine, vomiting, nausea 0922 (See Alternativ e - Provider: Yaw Okeefe RN) ondansetron ODT (Zofran-ODT) disintegrating tablet 4 mg(Linked Group 2) 4 mg, Oral, Every 6 hours PRN, Starting on Tue05/17/25 at 0855, Until Tue05/17/25 at 2120, Routine, nausea, vomiting 0922 (Given - Provider: Yaw Okeefe RN) sodium chloride 0.9 % flush 10 mL(Linked Group 1) 10 mL, Intravenous, As needed, Starting on Tue05/14/25 at 1506, Until Tue05/17/25 at 2120, Routine, line care Linked Groups Order Group 1: Insert peripheral IV (COMPLETED) Once, On Tue05/14/25 at 1507, For 1 occurrence And Saline lock IV (CANCELED) Once, On Tue05/14/25 at 1507, For 1 occurrence And sodium chloride 0.9 % flush 10 mLJump to med 10 mL, Intravenous, Every 12 hours, First dose on Tue05/14/25 at 1600, Until Discontinued, Routine And sodium chloride 0.9 % flush 10 mLJump to med 10 mL, Intravenous, As needed, Starting on Tue05/14/25 at 1506, Until Tue05/17/25 at 2120, Routine, line care Group 2: ondansetron ODT (Zofran-ODT) disintegrating tablet 4 mgJump to med 4 mg, Oral, Every 6 hours PRN, Starting on Tue05/17/25 at 0855, Until Tue05/17/25 at 0, Routine, nausea, vomiting Or ondansetron (Zofran) injection 4 mgJump to med 4 mg, Intravenous, Every 6 hours PRN, Starting on Tue05/17/25 at 0855, Until Tue05/17/25 at 0, Routine, vomiting, nausea Or ondansetron (Zofran) 4 MG/5ML solution 4 mgJump to med 4 mg, Oral, Every 6 hours PRN, Starting on Tue05/17/25 at 0855, Until Tue05/17/25 at 2120, Routine, nausea, vomiting documented in this encounter Additional Health Concerns Assessment Noted Time A fall risk assessment has been complete d for the patient 05/07/2025 2:59 PM EDT A Body Mass Index follow-up plan has been documented for the patient 05/17/2025 5:39 PM EDT documented as of this encounter Care Teams Residential Property Consultant Relationship Specialty Start Date End Date Fernando Arias DO [address] [place] [address] PCP - General Fuel Cell Assembler 01/29/25 documented as of this encounter
[2025-06-25 19:14] LABS: Hematocrit 35.2 % (37.0-47.0); Hemoglobin 10.4 g/dL (12.2-16.2); Immature Granulocytes % 0.7 %; Mean Corpuscular HGB Conc 29.5 g/dL (31.8-35.4); Mean Corpuscular Hemoglobin 28.0 pg (27.0-31.2); Mean Corpuscular Volume 94.6 fl (81-99); Nucleated Red Blood Cells % 0 %; Platelet Count 188 K/mm3 (142-424); Red Blood Count 3.72 M/mm3 (4.20-5.40); Red Cell Distribution Width-SD 47.4 fL; White Blood Count 6.1 K/mm3 (4.8-10.8)
[2025-06-25 19:22] LABS: Albumin Level 3.6 g/dl (3.5-5.0); Chloride 94 mmol/L (98-107); Sodium 142 mmol/L (136-145)
[2025-06-25 19:23] LABS: Potassium 4.8 mmoL/L (3.5-5.1)
[2025-06-25 19:25] LABS: Alanine Aminotransferase 7 U/L (12-78); Alkaline Phosphatase 91 U/L (38-126); Aspartate Amino Transferase 27 U/L (14-36); Bilirubin,Total 0.2 mg/dl (0.2-1.3); Blood Urea Nitrogen 28 mg/dl (7-17); Creatinine,Serum 0.80 mg/dl (0.52-1.04); Estimated Glomerular Filt Rate 75 ml/min (>60); GFR (African American) 90 ML/MIN (>60)
[2025-06-25 19:26] LABS: Albumin/Globulin Ratio 1.0 (1.1-1.8); Calcium 8.3 mg/dl (8.4-10.2); Globulin 3.5 g/dL (1.3-3.2); Glucose 70 mg/dl (74-100); Total Protein,Serum 7.1 g/dl (6.3-8.2)
[2025-06-25 19:42] LABS: Anion Gap 16.8 mEq/L (5-15); Carbon Dioxide 36 mmol/L (22.0-30.0)
[2025-06-25 19:57] LABS: Thyroid Stimulating Hormone 31.60 uIU/mL (0.465-4.68)
[2025-06-25 20:14] LABS: Hepatitis C Ab Qual. W/ RFX NEGATIVE (Negative)
--- OUTSIDE RECORDS SUMMARY | 2025-06-26 09:47 | XMS_ITS | Encounter Summary ---
Author Organization Healthcare Address [address] [place] [address] Care Team Providers Care Director Of Labor Relations Name Role Phone Juana Fernando Renteria DO Primary Care Provider Ruth Ann Appiah LPN Unavailable Unavailabl e Reason for Visit * Reason Onset Date Comments Prior-authorization/insurance Verification 05/20 Encounter Details Date Type Department Care Team (Late st Contact Info) Description 05/20/2025 Telephone [facility] Virtual Dept. [address] [place] [address] Jaylon Lovett MD [address] [place] [id number] Prior-authorization/ins urance Verification Social History Tobacco Use Types Packs/Day Years [...] you got the money to buy more. Never true 05/20/20 25 Within the past 12 months, t he food you bought just didn't last and you didn't have money to get more. Never true 05/20/2025 PRAPARE - Transportation Answer Date Re corded In the past 12 months, has l ack of transportation kept you from medical appointments or from getting medications? No 05/02 In the past 12 months, has l ack of transportation kept you from meetings, work, or from getting things needed for daily living? No 05/20/2025 Housing Stability Vital Sign Answer Travis e Recorded In the last 12 months, was t here a time when you were not able to pay the mortgage or rent on time? No 05/20/2025 In the past 12 months, how m any times have you moved where you were living? 1 05/20/2025 At any time in the past 12 m [facility], were you homeless or living in a detention (including now)? No 05/20/2025 [facility] Utilities Answer Date Recorded In the past 12 months has th e electric, gas, oil, or water company threatened to shut off services in your home? No 05/20/2025 Comments Unknown Sex and Gender Information Value Date Recorded Sex Assigned at Not on file Legal Sex Female 9:11 AM EST Gender Identity Not on file Sexual Orientation Not on file documented as of this encounter Plan of Treatment Upcoming Encounters Date Type Department Care Team ([facility] st Contact Info) Description 08/20/2025 11:40 AM EST Office Visit [facility] [address], [address] [place] [address] Nikita Lai MD [address] [place] [address] documented as of this encounter Visit Diagnoses Not on filedocumented in this encounter Additional Health Concerns Assessment Noted Time A fall risk assessment has been complete d for the patient 05/07/2025 2:59 PM EDT A Body Mass Index follow-up plan has been documented for the patient 05/17/2025 5:39 PM EDT documented as of this encounter Care Teams Director Of Labor Relations Relationship Specialty Start Date End Date Fernando Arias DO [address] [place] [address] PCP - General Patient Case Manager 01/29/25 Ruth Ann Appiah LPN [facility] None TCM Nurse 05/20/25 06/19/25 documented as of this encounter
--- OUTSIDE RECORDS SUMMARY | 2025-06-26 09:47 | XMS_ITS | Encounter Summary ---
Author Organization Healthcare Address [address] [place] [address] Care Team Providers Care Manager Infrastructure Name Role Phone JuanaFernando Primary Care Provider [phone] Ruth Ann Appiah LPN Unavailable Unavailabl e Reason for Visit * Reason Comments TCM Encounter Details Date Type Department Care Team (Late st Contact Info) Description 05/20/2025 Patient Outreach [facility] [address], [address] [place] [address] Ruth Ann Appiah, [facility] None TCM Social History Tobacco Use Types Packs/Day Years [...] were you homeless or living in a group home (including now)? No 05/20/2025 [facility] Utilities Answer Date Recorded In the past [...] on file documented as of this encounter Miscellaneous Notes * Progress Notes - Ruth Ann Appiah LPN - 05/20/2025 10:48 AM EDT Admit Date: 05/14/2025 Discharge Date: 05/17/2025 Hospital Service: Hospital Medicine Discharge Diagnosis: Encounter for attention to tracheostomy 05/20/2025 TCM call # 1 Patient Reached: Yes Outcome: Called patient for a TCM nurse call. Unable to reach patient. VM left with a call back number provided. Patients sister returned TCM nurse call. Sister reports patient is doing okay, reports she had problems at first walking where she was in bed a lot at the hospital. Reports patient is doing great now. Sister reports patients cough and secretions are much better. Sister reports patient is doing wellwith her cap, reports patient uses the cap most of the time. Sister reports she will make patient afollow up with her PCP. Sister denies patient having any [facility] needs, reports she takes care of everything for patient. Sister reports patient received all her medications at discharge. Sister has no questions or concerns for this nurse at this time. Action: N/A Medication changes: per AVS Start taking arformoterol (Brovana) 15 MCG/2 ML nebulizer solution Take 2 mL by nebulization 2 times a day ipratropium-albuterol (Duo-Neb) 0.5-2.5 mg/3 mL nebulizer solution Take 3 mL by nebulization every 6 hours as needed for wheezing. Continue Duoneb until Brovana (arformoterol) and Yupelri (revefenacin) are available. revefenacin (Yupelri) 175 MCG/3 ML nebulizer solution Take 3 mL by nebulization daily sodium chloride Take 3 mL by nebulization 2 times a day. sulfamethoxazole-trimethoprim (Bactrim DS) 800-160 mg Take 1 tablet by mouth 2 times a day for 7 days. Change how you take budesonide (Pulmicort) 0.5 MG/2 ML nebulizer solution Take 2 mL by nebulization 2 times a day Stop taking albuterol (2.5 MG/3 ML) 0.083% nebulizer solution (Proventil) [facility] appointment: Needs scheduled with PCP Items to address at [facility]: N/A documented in this encounter Plan of Treatment Upcoming Encounters Date Type Department Care Team (Late st Contact Info) Description 08/20/2025 11:40 AM EST Office Visit [facility] [address], [address] [place] [address] Nikita Lai MD [address] [place] [address] documented as of this encounter Visit Diagnoses Not on filedocumented in this encounter Additional Health Concerns Assessment Noted Time A fall risk assessment has been complete d for the patient 05/07/2025 2:59 PM EDT A Body Mass Index follow-up plan has been documented for the patient 05/17/2025 5:39 PM EDT documented as of this encounter Care Teams Manager Infrastructure Relationship Specialty Start Date End Date Fernando Arias DO [address] [place] [address] PCP - General Sampler Tester 01/29/25 Ruth Ann Appiah, [facility] None TCM Nurse 05/20/25 06/19/25 documented as of this encounter
--- OUTSIDE RECORDS SUMMARY | 2025-06-26 09:47 | XMS_ITS | Clinical Summary ---
Author Organization Healthcare Address [address] [place] [address] Care Team Providers Care Station Mechanic Name Role Phone Fernando Arias DO Primary Care Provider [phone] Medications amiodarone (Pacerone) 200 MG tablet Take 1 tablet by mouth twice a day. 5 Active apixaban (Eliquis) 5 MG tablet Take 1 tablet by mouth twice a day. 5 Active bumetanide (Bumex) 2 MG tablet Take 1 tablet by mouth twice a day. 5 Active ferrous sulfate 325 (65 Fe) MG EC tablet Take 1 tablet by mouth daily. 5 Active pantoprazole (Protonix) 40 MG EC tablet Take 1 tablet by mouth daily. 5 Active risperiDONE (RisperDAL) 2 MG tablet Take 1 tablet by mouth twice a day. 5 Active rosuvastatin (Crestor) 10 MG tablet Take 1 tablet by mouth daily. Active valproic acid (Depakene) 250 MG capsule Take 2 capsules by mouth every 8 hours. Active Melatonin 10 MG tablet Take 1 tablet by mouth at night as needed. Active sodium chloride 3 % nebulizer solution Take 3 mL by nebulization 2 times a day. 750 mL 12 5 Active revefenacin (Yupelri) 175 MCG/3ML nebulizer solution Take 3 mL by nebulization daily. 90 mL 5 5 11/14/19 26 Active arformoterol (Brovana) 15 MCG/2ML nebulizer solution Take 2 mL by nebulization 2 times a day. 120 mL 2 5 Active budesonide (Pulmicort) 0.5 MG/2ML nebulizer solution Take 2 mL by nebulization 2 times a day. 60 mL 5 5 08/15/19 26 Active ipratropium-alb uterol (Duo-Neb) 0.5-2.5 mg/3 mL nebulizer solution Take 3 mL by nebulization every 6 hours as needed for wheezing. Continue Duoneb until Brovana (arformoterol) and Yupelri (revefenacin) are available. 180 mL 5 5 Active Active Problems Problem Noted Date Diagnosed Date Encounter for attention to tracheostomy 05/14/20 25 Encounters Date Type Department Care Team Description 05/20/2025 Patient Outreach [facility] [address], [address] [place] [address] Ruth Ann Appiah LPN [facility] 05/20/2025 Telephone [facility] Medicine Virtual Dept. [address] [place] [address] Jaylon Lovett MD Prior-authorization/ insurance Verification 05/20/2025 Telephone [facility] Virtual Dept. [address] [place] [id number] Jaylon Lovett MD Prior-authorization/ insurance Verification 05/16/2025 Travel 05/15/2025 Travel 05/14/2025 1:56 PM EDT - 05/17/2025 7:20 PM EDT Hospital Encounter [facility] Inpatient [address] [place] [address] Julio Dean MD Bilal, Haris, MD Foley, William S, MD Encounter for attention to tracheostomy (Primary Dx); Bronchitis Discharge Disposition: Home or Self Care 05/14/2025 Travel 05/07/2025 3:00 PM EDT Office Visit [facility] [address], [address] [place] [address] Nikita Lai MD Tracheostomy care (Primary Dx); Chronic obstructive pulmonary disease, unspecified COPD type ([facility]) 05/07/2025 Travel 04/08/2025 Orders Only External Location [address] [place] [address] Lise Posadas MD from Last 3 Months Immunizations Immunization Administration Dates Next Due Influenza, Unspecified 05/23/2018 Influenza, injectable, quadrivalent 05/25/2017,1 08/09/2015 Influenza, injectable, quadr ivalent, preservative free 06/19/2019,05/02/2013 Influenza, seasonal, injectable 05/14/20 11,06/16/2010,07/05/2008,2006 Influenza, seasonal, injecta ble, preservative free 09/26/2024,05/12/2012 Pneumococcal 20-yoana Conj Vaccine 09/26/2024 Family History Medical History Relation Name Comments Cancer Father Diabetes Mother Heart failure Mother Kidney failure Mother Relation Name Status Comments Father Mother Social History Tobacco Use Types Packs/Day Years [...] money to buy more. Never true 05/20/20 Within the past 12 months, t he [...] any time in the past 12 m [facility], were you homeless or living in a [place] health care facility (including now)? No 05/20/2025 [facility] Utilities Answer Date Recorded In the past 12 months has th e electric, gas, oil, or water company threatened to shut off services in your home? No 05/20/2025 Comments Unknown Sex and Gender Information Value Date Recorded Sex Assigned at Not on file Legal Sex Female 9:11 AM EST Gender Identity Not on file Sexual Orientation Not on file Last Filed Vital Signs Vital Sign Reading [...] cm (5' 4.02 ) 05/16/2025 2:00 PM ED T Body Mass Index 35.82 05/16/2025 2:00 PM EDT Plan of Treatment Upcoming Encounters Date Type Department Care Team (Late st Contact Info) Description 08/20/2025 11:40 AM EST Office Visit [facility] [address], [address] [place] [address] Nikita Lai MD [address] [place] [address] Health Maintenance Due Date Last Done Comments [facility]-Depression Screening 1970 [facility]-HIV Screening 1970 [facility]-Hepatitis C Screening 1970 [facility]-/Child/Adol SDOH Screenings 1970 [facility]-DTaP,Tdap,and Td Vaccines (1 - Tdap) 1989 [facility]-Hepatitis B Vaccines (1 of 3 - 19+ 3-dose series) 1989 CT Colonography 10/15/2015 Colonoscopy 10/15/2015 FIT-DNA 10/15/2015 FIT 10/15/2015 FOBT 10/15/2015 Sigmoidoscopy 10/15/2015 [facility]-Colorectal Cancer Screening 10/15/2015 [facility]-Breast Cancer Screening 2020 [facility]-Zoster Vaccines (1 of 2) 2020 DVM-WEWAH-24 Vaccine (1 - season) 2025 [facility]-Influenza Vaccine (#1) 04/01/202509/26, 06/19/2019, 05/23/2018, Additional history exists [facility]- SDOH Screenings 11/13/2025 [facility]-Adult SDOH Screenings 11/13/2025 05/15/2025 [facility]-Pneumococcal Vaccine: 50+ Years Completed 09/26/2024 [facility]-Obesity Intervention Completed 025, 05/13/2025, 05/07/2025 HPV Vaccines Aged Out No longer eligi ble based on patient's age to complete this topic [facility]-HIB Vaccines Aged Out No longer e [...] on patient's age to complete this topic Procedures Procedure Name Priority Date/Time Associated Diagnosis [...] PROCALCITONIN, PLASMA Add-On 05/14/2025 4:17 PM EDT PHOSPHORUS, PLASMA Routine 05/14/2025 4: 17 PM EDT MAGNESIUM, PLASMA Routine 05/14/2025 4:1 7 PM EDT COMPREHENSIVE METABOLIC PANEL, PLASMA Routine 05/14/2025 4:17 PM EDT CBC WITH AUTO DIFFERENTIAL Routine 05/14/2025 4:17 PM EDT INSERT PERIPHERAL IV STAT 05/14/2025 4:14 PM EDT CYSTIC FIBROSIS RESPIRATORY CULTURE AND GRAM STAIN Routine 05/14/2025 3:57 PM EDT US OUTSIDE IMAGES 04/08/2025 12: 31 PM EDT from Last 3 Months Results * Tracheostomy Replacement (05/17/2025 11:19 AM [...] to verify the correct patient, procedure, equipment, business support professional and site/side marked as required. Indications: routine and obstruction Local anesthesia used: no Anesthesia: Local anesthesia used: no Sedation: Patient sedated: no Tube type: single cannula Tube cuff: cuffless Tube size: 6.0 mm Patient tolerance: patient tolerated the procedure well with no immediate complications Jaylon Lovett MD IN CLINIC/BEDSIDE ORDERABLES Final Result * POCT glucose meter (05/17/2025 7:59 AM EDT) Only the most recent of2 resultswithin the time period is included. POCT Glucose 90 74 - 99 mg/dL 05/17/2025 8:09 AM EDT [facility] Comment:Accuracy of a glucos e result [...] for testing. Comment 05/17/2025 8:09 AM EDT [facility] Churn Operator ID Kitty Nava 8:09 AM EDT [facility]ARE [facility] Device ID [id number] 05/17/2025 8:09 AM EDT [facility] Specimen Type POC Capillary 05/17/2025 8:09 AM EDT [facility] Blood Capillary blood specimen / Unknown 05/17/2025 7:59 AM EDT 05/17/2025 8:09 AM EDT Jaylon Lovett MD LAB POINT OF CARE TE ST DOCKED DEVICE UNSOLICITED RESULTS Final Result Performing Organization Address City/State/[facility] Co de Phone Number [facility] [address] [place] [address] * (ABNORMAL) Blood gas panel, venous (05/17/2025 6:19 AM EDT) Only the most recent of2 resultswithin the time period is included. pH, Venous 7.39 7.32 - 7.43 LAB HEMATOLOGY METHOD 05/17/2025 6:29 AM EDT [facility] pCO2, Venous 68(HH) 37 - 52 mmHg LAB HEMATOLOGY METHOD 05/17/2025 6:29 AM EDT [facility] pO2, Venous 50(H) 25 - 40 mmHg LAB HEMATOLOGY METHOD 05/17/2025 6:29 AM EDT [facility] SO2, Measured, Venous 83(H) 65 - 80 % LAB HEMATOLOGY METHOD 05/17/2025 6:29 AM EDT [facility] Base Excess, Venous 13.8(H) -2.0 - 3.0 mmol/L LAB HEMATOLOGY METHOD 05/17/2025 6:29 AM EDT [facility] Bicarbonate, Calculated, Venous 41(H) 22 - 26 mmol/L LAB HEMATOLOGY METHOD 05/17/2025 6:29 AM EDT [facility] Hematocrit, Whole Blood 28.9(L) 34.0 - 45.0 % LAB HEMATOLOGY METHOD 05/17/2025 6:29 AM EDT [facility] Sodium, Whole Blood 136 136 - 145 mmol/L LAB HEMATOLOGY METHOD 05/17/2025 6:29 AM EDT [facility] Potassium, Whole Blood 3.6 3.6 - 4.9 mmol/L LAB HEMATOLOGY METHOD 05/17/2025 6:29 AM EDT [facility] Chloride, Whole Blood 88(L) 97 - 107 mmol/L LAB HEMATOLOGY METHOD 05/17/2025 6:29 AM EDT [facility] Glucose, Whole Blood 83 74 - 99 mg/dL LAB HEMATOLOGY METHOD 05/17/2025 6:29 AM EDT [facility] Lactate, Venous, Whole Blood 0.8 0.5 - 2.2 mmol/L LAB HEMATOLOGY METHOD 05/17/2025 6:29 AM EDT [facility] Ionized Calcium, Whole Blood 4.3(L) 4.6 - 5.1 mg/dL LAB HEMATOLOGY METHOD 05/17/2025 6:29 AM EDT [facility] Blood Venous blood specimen / Unknown Venipuncture / Unknown 05/17/2025 6:19 AM EDT 05/17/2025 6:25 AM EDT Jaylon Lovett MD LAB BLOOD ORDERABLES Final Re sult [facility] [address] [place] [address] * (ABNORMAL) Quantitative BAL/PAL/Bronch Wash Culture and Gram StainProtected Alveolar Lavage (05/16/2025 2:47 PM EDT) Culture >=100,000 CFU/mL Mixed urogenital, fecal, or skin devonte present. SARAH 05/24/2025 10:01 AM EDT [facility] Comment:The organism value f or this result has been updated. These results have been appended to the previously preliminary verified report. Culture [id number] CFU/mL Pseudomonas aeruginosa(A) SARAH 05/24/2025 10:01 AM EDT [facility] Comment: This result was determined by [employer] tof mass spectrometry using the Ardelyx database and is for research use only. The organism value for this result has been updated. These results have been appended to the previously preliminary verified report. Culture [id number] CFU/mL Moraxella catarrhalis (formerly Moraxella_sg_Branham nivia catarrhalis)(A) SARAH 05/24/2025 10:01 AM EDT [facility] Comment: This isolate has been identified using the FDA Approved [employer] System The organism value for this result has been updated. These results have been appended to the previously preliminary verified report. Culture [id number] CFU/mL - biotype 2 Pseudomonas aeruginosa(A) SARAH 05/24/2025 10:01 AM EDT [facility] Comment: This isolate has been identified using the FDA Approved [employer] System The organism value for this result has been updated. These results have been appended to the previously preliminary verified report. Gram Stain Result Few Polymorphonuclear leukocytes 05/24/2025 10:01 AM EDT [facility] Gram Stain Result No organisms seen 05/24/2025 10:01 AM EDT [facility] Protected Alveolar Lavage (Protected Alveolar Lavage) [...] MICROBIOLOGY - GENERA L ORDERABLES Final Result [facility] [address] [place] [address] * FL Modified Barium Swallow (05/16/2025 2:10 [...] IMG CT PROCEDURES Final Resul t * (ABNORMAL) Vitamin D 25 Hydroxy (05/15/2025 2:09 AM EDT) Vitamin D 25 Hydroxy 16.5(L) 20.0 - 80.0 ng/mL 05/15/2025 4:55 AM EDT [facility] Blood Venous blood specimen / Unknown Venipuncture / Unknown 05/15/2025 2:09 AM EDT 05/15/2025 2:16 AM EDT Narrative [facility] - 05/15/2025 4:55 AM EDT Testing performed on J[employer] Expeller Operator, standardized against NIST SRM 2972. When testing [...] MD LAB BLOOD ORDERABLES Final Resul t [facility] [address] [place] [address] * XR Chest 1 View (05/14/2025 6:52 [...] Mariana Thornton MD on 05/14/2025 6:58 PM us Lukas Darnell MD IMG XR PROCEDURES Final Result * IgE Antibody, IgG (05/14/2025 4:28 PM EDT) Pathologist [facility] [place] IgE Ab IgG <6 <168 ng/mL 05/24/2025 11:25 AM EDT [facility]SELECT [facility] [place] SaenzKATIE) Comment: This test was developed and its analytical performance characteristics have been determined by [employer]. It has not been cleared or approved by the FDA. This assay has been validated pursuant to the CLIA regulations and is used for clinical purposes. Venous blood specimen / Unknown 05/14/2025 4:28 PM EDT 05/14/2025 4:58 PM EDT Narrative RICKS (SJC) (KATIE) - 05/24/2025 11:25 AM EDT Performing Organization Information: Site ID: [id number] Name: [facility] Address: [address] [place] [id number] Director: Julian Bender MD, PhD us Lukas Darnell MD LAB BLOOD ORDERABLES Final Resul t RAM[facility] DanySELECT [facility] [place] SaenzKATIE) [address] [address] * (ABNORMAL) Procalcitonin (05/14/2025 4:17 PM EDT) [facility] Procalcitonin, Plasma 0.09(H) <0.09 ng/mL 05/14/2025 7:38 PM EDT [facility] Blood Venous blood specimen / Unknown Venipuncture / Unknown 05/14/2025 4:17 PM EDT 05/14/2025 4:48 PM EDT Narrative [facility] - 05/14/2025 7:38 PM EDT Procalcitonin [...] predict 28 day mortality risk. Please consult [email or web address] for more information. Test performed at [facility]. us Lukas Darnell MD LAB BLOOD ORDERABLES Final Resul t [facility] [address] [place] [address] * (ABNORMAL) CBC with differential (hemogram with differential) (05/14/2025 4:17 PM EDT) WBC Count 5.51 3.70 - 10.30 10*3/uL LAB HEMATOLOGY METHOD 05/14/2025 5:03 PM EDT [facility] RBC Count 3.54(L) 3.90 - 5.20 10*6/uL LAB HEMATOLOGY METHOD 05/14/2025 5:03 PM EDT [facility] HGB 9.8(L) 11.2 - 15.7 g/dL LAB HEMATOLOGY METHOD 05/14/2025 5:03 PM EDT [facility] HCT 31.7(L) 34.0 - 45.0 % LAB HEMATOLOGY METHOD 05/14/2025 5:03 PM EDT [facility] Platelet Count 335 155 - 369 10*3/uL LAB HEMATOLOGY METHOD 05/14/2025 5:03 PM EDT [facility] MCV 90 79 - 98 fL LAB HEMATOLOGY METHOD 05/14/2025 5:03 PM EDT [facility] MCH 27.7 26.0 - 32.0 pg LAB HEMATOLOGY METHOD 05/14/2025 5:03 PM EDT [facility] MCHC 30.9 30.7 - 35.5 g/dL LAB HEMATOLOGY METHOD 05/14/2025 5:03 PM EDT [facility] RDW 13.6 11.5 - 14.5 % LAB HEMATOLOGY METHOD 05/14/2025 5:03 PM EDT [facility] MPV 9.3 8.8 - 12.5 fL LAB HEMATOLOGY METHOD 05/14/2025 5:03 PM EDT [facility] nRBC 0.0 <=0.0 per 100 WBCs LAB HEMATOLOGY METHOD 05/14/2025 5:03 PM EDT [facility] Differential Type Automated LAB HEMATOLOGY METHOD 05/14/2025 5:03 PM EDT [facility] Neutrophils % 61 % LAB HEMATOLOGY METHOD 05/14/2025 5:03 PM EDT [facility] Lymphocytes % 26 % LAB HEMATOLOGY METHOD 05/14/2025 5:03 PM EDT [facility] Monocytes % 9 % LAB HEMATOLOGY METHOD 05/14/2025 5:03 PM EDT [facility] Eosinophils % 1 % LAB HEMATOLOGY METHOD 05/14/2025 5:03 PM EDT [facility] Basophils % 1 % LAB HEMATOLOGY METHOD 05/14/2025 5:03 PM EDT [facility] Immature Granulocytes % 2 % LAB HEMATOLOGY METHOD 05/14/2025 5:03 PM EDT [facility] Neutrophils Absolute 3.43 1.60 - 6.10 10*3/uL LAB HEMATOLOGY METHOD 05/14/2025 5:03 PM EDT [facility] Lymphocytes Absolute 1.42 1.20 - 3.90 10*3/uL LAB HEMATOLOGY METHOD 05/14/2025 5:03 PM EDT [facility] Monocytes Absolute 0.49 0.30 - 0.90 10*3/uL LAB HEMATOLOGY METHOD 05/14/2025 5:03 PM EDT [facility] Eosinophils Absolute 0.03 0.00 - 0.50 10*3/uL LAB HEMATOLOGY METHOD 05/14/2025 5:03 PM EDT [facility] Basophils Absolute 0.03 0.00 - 0.10 10*3/uL LAB HEMATOLOGY METHOD 05/14/2025 5:03 PM EDT [facility] Immature Granulocytes Absolute 0.11(H) 0.00 - 0.06 10*3/uL LAB HEMATOLOGY METHOD 05/14/2025 5:03 PM EDT [facility] Blood Venous blood specimen / Unknown Venipuncture / Unknown 05/14/2025 4:17 PM EDT 05/14/2025 4:48 PM EDT Narrative [facility] - 05/14/2025 5:03 PM EDT Therapeutic decision making should be based on absolute values, rather than percentages. us Lukas Darnell MD LAB BLOOD ORDERABLES Final Resul t Performing Organization Address City/[facility]/ZIP Co de Phone Number [facility] [address] [place] [address] * (ABNORMAL) Phosphorus (05/14/2025 4:17 PM EDT) Phosphorus, Plasma 4.6(H) 2.5 - 4.5 mg/dL 05/14/2025 5:58 PM EDT [facility] Blood Venous blood specimen / Unknown Venipuncture / Unknown 05/14/2025 4:17 PM EDT 05/14/2025 4:48 PM EDT us Lukas Darnell MD LAB BLOOD ORDERABLES Final Resul t [facility] [address] [place] [address] * Magnesium (05/14/2025 4:17 PM EDT) Magnesium, Plasma 2.3 1.9 - 2.4 mg/dL 05/14/2025 5:58 PM EDT [facility] Blood Venous blood specimen / Unknown Venipuncture / Unknown 05/14/2025 4:17 PM EDT 05/14/2025 4:48 PM EDT us Lukas Darnell MD LAB BLOOD ORDERABLES Final Resul t [facility] [address] [place] [address] * (ABNORMAL) Comprehensive metabolic panel (05/14/2025 4:17 PM EDT) Glucose, Plasma 89 74 - 99 mg/dL 05/14/2025 5:58 PM EDT [facility] BUN, Plasma 24(H) 7 - 21 mg/dL 05/14/2025 5:58 PM EDT [facility] Creatinine, Plasma 0.79 0.60 - 1.10 mg/dL 05/14/2025 5:58 PM EDT [facility] BUN/Creatinine Ratio 30 05/14/2025 5:58 PM EDT [facility] Sodium, Plasma 142 136 - 145 mmol/L 05/14/2025 5:58 PM EDT [facility] Potassium, Plasma 3.4(L) 3.6 - 4.9 mmol/L 05/14/2025 5:58 PM EDT [facility] Chloride, Plasma 93(L) 97 - 107 mmol/L 05/14/2025 5:58 PM EDT [facility] CO2, Plasma 41(HH) 22 - 29 mmol/L 05/14/2025 5:58 PM EDT [facility] Anion Gap 8 6 - 16 mmol/L 05/14/2025 5:58 PM EDT [facility] Total Calcium, Plasma 8.5(L) 8.9 - 10.2 mg/dL 05/14/2025 5:58 PM EDT [facility] Total Protein 7.1 6.3 - 7.9 g/dL 05/14/2025 5:58 PM EDT [facility] Albumin, Plasma 3.6 3.5 - 5.2 g/dL 05/14/2025 5:58 PM EDT [facility] AST, Plasma 18 10 - 35 U/L 05/14/2025 5:58 PM EDT [facility] ALT, Plasma 9(L) 10 - 35 U/L 05/14/2025 5:58 PM EDT [facility] Alkaline Phosphatase, Plasma 88 35 - 104 U/L 05/14/2025 5:58 PM EDT [facility] Total Bilirubin, Plasma <0.2(L) 0.2 - 1.1 mg/dL 05/14/2025 5:58 PM EDT [facility] eGFRcr 89.0 mL/min/1.7 3m*2 05/14/2025 5:58 PM EDT [facility] Comment:Reported eGFRcr in m L/min/1.73m2 is based the CKD-EPI 2020 equation that does not use a race coefficient. Blood Venous blood specimen / Unknown Venipuncture / Unknown 05/14/2025 4:17 PM EDT 05/14/2025 4:48 PM EDT Lukas Darnell MD LAB BLOOD ORDERABLES Final Resul t Performing Organization Address City/State/[facility] Co de Phone Number [facility] [address] [place] [address] * PERIPHERAL IV (SMARTFORM LINK) (05/14/2025 4:14 PM EDT) Narrative Kanchan Galvan RN - 05/14/2025 4:14 PM EDT Kanchan Galvan RN 05/14/2025 4:14 PM Insert peripheral IV Performed by: Kanchan Galvan, RN Authorized by: Lukas Darnell MD Hand [...] Labs collected at time of IV insertion us Lukas Darnell MD IV THERAPY ORDERABLES Final Resu lt * (ABNORMAL) Cystic Fibrosis Respiratory Culture and Gram Stain (05/14/2025 3:57 PM EDT) Pathologist [facility] [place] Culture Moderate Growth 11:52 AM EDT [facility] Culture Mixed upper respiratory devonte(A) SARAH 05/19/2025 11:52 AM EDT [facility] Comment:The organism value f or this result has been updated. These results have been appended to the previously preliminary verified report. Culture Proteus vulgaris group(A) SAARH 05/19/2025 11:52 AM EDT [facility] Comment: This isolate has been identified using the FDA Approved [employer] System The organism value for this result has been updated. These results have been appended to the previously preliminary verified report. The organism value for this result has been updated. These results have been appended to the previously preliminary verified report. Culture Morganella morganii(A) SARAH 05/19/2025 11:52 AM EDT [facility] Comment: This isolate has been identified using the FDA Approved [employer] CA System The organism value for this result has been updated. These results have been appended to the previously preliminary verified report. Gram Stain Result Greater than 25 WBC/LPF(A) 05/19/2025 11:52 AM EDT [facility] Gram Stain Result Fewer than 10 Epithelial cells/LPF(A) 05/19/2025 11:52 AM EDT [facility] Gram Stain Result Numerous Gram negative diplococci(A) 05/19/2025 11:52 AM EDT [facility] Gram Stain Result Moderate Gram positive rods(A) 05/19/2025 11:52 AM EDT [facility] Gram Stain Result Moderate Gram positive cocci in pairs(A) 05/19/2025 11:52 AM EDT [facility] Gram Stain Result Few Gram negative rods(A) 05/19/2025 11:52 AM EDT [facility] Sputum Sputum specimen obtained from sputum [...] Trimethoprim/Sulfame thoxazo le SARAH <=0.5/9.5 ug/ml: Susceptible Julio Dean MD LAB MICROBIOLOGY - GENERAL ORDER CAESAR Final Result [facility] [address] [place] [address] * US OUTSIDE IMAGES (04/08/2025 12:31 PM EDT) Anatomical Region Laterality Modality Ultrasound 04/08/2025 12:3 1 PM EDT us Lise Posadas MD IMG US PROCEDURES Edited Res ult - Final from Last 3 Months Insurance [facility] MEDICA[facility] Advance Directives * Full Code (Latest Code Status on File) Date Activated Date Inactivated Comments 05/14/2025 5:40 PM 05/17/2025 9:20 PM Question Answer Comments I have reviewed the capacity from the link above and, if needed, have updated to appropriate status: Yes Care Teams Station Mechanic Relationship Specialty Start Date End Date Fernando Arias DO [address] [place] [id number] PCP - General Supervisor Molding 01/29/25
--- OUTSIDE RECORDS SUMMARY | 2025-06-26 09:47 | XMS_ITS | Clinical Summary ---
Author Organization [facility] Address [facility] [place] [address] Care Team Providers Care Svp Name Role Phone Ector Ling MD Primary Care Provider [phone] Source Comments This information has been disclosed to you from confidential records protectedfrom disclosure by state law. You shall make no further disclosure of thisinformation without the specific, written, and informed release of theindividual to whom it pertains, or as otherwise permitted by law. A generalauthorization for the release of medical or other information is not sufficientfor the purposes of therelease of HIV test results or diagnoses. [id number] Allergies No known active allergies Medications empagliflozin (JARDIANCE) 10 mg tablet Take 1 tablet (10 mg total) by mouth daily. Active escitalopram oxalate (LEXAPRO) 10 MG tablet Take 1 tablet (10 mg total) by mouth daily. Active ipratropium-albute roL (DUO-NEB) 0.5 mg-3 mg(2.5 mg base)/3 mL nebulizer solution Inhale 3 mLs by nebulization every 6 hours as needed for Wheezing. Active clonazePAM (KLONOPIN) 0.5 MG tablet Take 1 tablet (0.5 mg total) by mouth in the morning and at bedtime. Active gabapentin (NEURONTIN) 300 MG capsule Take 1 capsule (300 mg total) by mouth 3 times a day. Active risperiDONE (RISPERDAL M) 0.5 mg disintegrating tablet Take 1 tablet (0.5 mg total) by mouth 2 times a day. Active apixaban (ELIQUIS) 5 mg TabIndications:Pre vent Thromboembolism in Chronic Atrial Fibrillation 1 tablet (5 mg total) by Per NG / OG tube route 2 times a day. Indications: Prevent Thromboembolism in Chronic Atrial Fibrillation 60 tablet 5 11/01/19 25 Active wound dressings (TRIAD, ZINC OXIDE 20%,) Pste Apply 1 g topically if needed. 71 g 11/15/19 25 Active acetaminophen (TYLENOL) 325 MG tablet Take 2 tablets (650 mg total) by Per NG / OG tube route every 6 hours as needed. 100 tablet 11/15/19 25 Active valproic acid (DEPAKENE) 250 mg/5 ml oral solution 10 mLs (500 mg total) by Per NG / OG tube route 3 times a day. 1000 mL 11/15/19 25 Active miconazole (MICOTIN) 2 % powder Apply topically 2 times a day. 85 g 11/15/19 25 Active melatonin 3 mg Tab 2 tablets (6 mg total) by Per NG / OG tube route at bedtime as needed (insomnia). 30 tablet 11/15/19 25 Active lidocaine (LIDODERM) 5 % Place 1 patch onto the skin daily as needed. Apply patch for 12 hours and then remove patch and leave off for 12 hours. 30 patch 11/15/19 25 Active guar gum (BENEFIBER) Pack 1 packet by Per NG / OG tube route daily. 30 packet 11/15/19 25 Active esomeprazole (NEXIUM) 40 MG capsule 1 capsule (40 mg total) by Per NG / OG tube route daily. 30 capsule 11/15/19 25 Active budesonide (PULMICORT) 0.5 mg/2 mL nebulizer solution Inhale 2 mLs (0.5 mg total) by nebulization daily. 60 mL 11/15/19 25 Active amiodarone (PACERONE) 200 MG tablet Take 1 tablet (200 mg total) by Per NG / OG tube route daily. 30 tablet 11/16/19 25 Active albuterol (PROVENTIL) 2.5 mg /3 mL (0.083 %) nebulizer solution Inhale 3 mLs (2.5 mg total) by nebulization daily. 90 mL 11/15/19 25 Active naloxone (NARCAN) 4 mg/actuation Willow Apply 1 spray in one nostril if needed. Call 911. May repeat dose in other nostril if no response in 3 minutes. 2 each 1 11/15/19 25 Active Active Problems Problem Noted Date Diagnosed Date Cardiac arrest 10/07/2024 Acute hypoxic respiratory failure 10/07/2024 Pericardial effusion 10/07/2024 Social History Tobacco Use Types Packs/Day Years Used Date Smoking Tobacco: Never Passive Smoke Exposure: Never Smokeless Tobacco: Never Tobacco Cessation:Counseling Given: Yes Alcohol Use Standard Drinks/Week Comments Never 0 (1 standard drink = 0.6 oz pur e alcohol) [facility] Utilities Answer Date Recorded In the past 12 months has th e electric, gas, oil, or water [email or web address] threatened to shut off services in your home? No 10/06/2024 AUDIT-C Answer Date Recorded Q1: How often do you have a drink containing alcohol? Never 10/06/2024 Q2: How many drinks containi ng alcohol do you have on a typical day when you are drinking? Patient does not drink Q3: How often do you have si x or more drinks on one occasion? Never 10/06/2024 Hunger Vital Sign Answer Date Recorded Within the past 12 months, y ou worried that your food would run out before you got the money to buy more. Never true 10/07/19 25 Within the past 12 months, t he food you bought just didn't last and you didn't have money to get more. Never true 10/06/2024 PRAPARE - Transportation Answer Date Re corded In the past 12 months, has l ack of transportation kept you from medical appointments or from getting medications? No 03/2025 In the past 12 months, has l ack of transportation kept you from meetings, work, or from getting things needed for daily living? No 10/06/2024 Housing Stability Vital Sign Answer Travis e Recorded In the last 12 months, was t here a time when you were not able to pay the mortgage or rent on time? No 10/06/2024 In the past 12 months, how m any times have you moved where you were living? 0 10/06/2024 At any time in the past 12 m [facility], were you homeless or living in a detention (including now)? No 10/06/2024 Comments Unknown Sex and Gender Information Value Date Recorded Sex Assigned at Not on file Legal Sex Female 9:49 PM EST Gender Identity Not on file Sexual Orientation Not on file Last Filed Vital Signs Vital Sign Reading Time Taken Comments Blood Pressure 93/65 11/14/2024 10:00 AM EDT Pulse 87 11/14/2024 10:00 AM EDT Temperature 37.4 C (99.4 F) 11/14/2024 8:00 AM EDT Respiratory Rate 25 11/14/2024 10:00 AM EDT Oxygen Saturation 98% 11/14/2024 10:00 AM EDT Inhaled Oxygen Concentration 98% 11/14/2024 1 0:00 AM EDT Weight 83.3 kg (183 lb 9.6 oz) 11/12/2024 5:06 A M EDT Height 157.5 cm (5' 2 ) 11/02/2024 3:13 PM EDT Body Mass Index 33.58 11/02/2024 3:13 PM EDT Plan of Treatment Health Maintenance Due Date Last Done Comments Abnormal Colonoscopy Follow Up 1970 Diabetes Screening 1970 Hepatitis C Screening (MyChart) 1970 Lipid Panel 1970 Depression Screening 1988 HIV Screening 1988 Immunization: DTaP/Tdap/Td ( 1 - Tdap) 1989 Immunization: Hepatitis B (1 of 3 - 19+ 3-dose series) 1989 Cervical Cancer Screening/Pa p Smear (MyChart) 2000 Mammogram (MyChart) 2010 Cologuard (FIT-DNA) 10/15/2015 Colonoscopy 10/15/2015 Colorectal Cancer Screening (MyChart) 10/15/2015 Stool Testing (gFOBT) 10/15/2015 Immunization: Zoster (1 of 2) 2020 Immunization: COVID-19 ( season) 2025 Immunization: Influenza (MyC delacruz) (#1) 2025 09/26/2024, 06/19/2019, 05/23/2018, Additional history exists Renal Function/GFR 11/14/2025 11/14/2024, 0 11/13/2024, 11/12/2024, Additional history exists Immunization: Pneumococcal Completed 09/26/2024 Procedures Procedure Name Priority Date/Time Associated Diagnosis Comments RENAL FUNCTION PANEL W/EGFR Routine 11/14/2024 5:39 AM EDT from Last 3 Months or Most Recently Relevant to Health Maintenance Results * (ABNORMAL) Renal Function Panel w/EGFR (11/14/2024 5:39 AM EDT) Sodium 134 133 - 146 mmol/L 11/14/2024 6:36 AM EDT [facility] Potassium 4.4 3.5 - 5.3 mmol/L 11/14/2024 6:36 AM EDT [facility] Chloride 95(L) 98 - 110 mmol/L 11/14/2024 6:36 AM EDT [facility] CO2 32 21 - 33 mmol/L 11/14/2024 6:36 AM EDT [facility] Anion Gap 7 3 - 16 mmol/L 11/14/2024 6:36 AM EDT [facility] BUN 14 7 - 25 mg/dL 11/14/2024 6:36 AM EDT [facility] Creatinine 0.36(L) 0.60 - 1.30 mg/dL 11/14/2024 6:36 AM EDT [facility] Glucose 94 70 - 100 mg/dL 11/14/2024 6:36 AM EDT [facility] Calcium 8.2(L) 8.6 - 10.3 mg/dL 11/14/2024 6:36 AM EDT [facility] Phosphorus 4.3 2.1 - 4.7 mg/dL 11/14/2024 6:36 AM EDT [facility] Albumin 2.3(L) 3.5 - 5.7 g/dL 11/14/2024 6:36 AM EDT [facility] Osmolality, Calculated 278 278 - 305 mOsm/kg 11/14/2024 6:36 AM EDT [facility] EGFR >90 11/14/2024 6:36 AM EDT [facility] Comment: As of 2021, the estimated GFR is calculated using the 2020 Chronic Kidney Disease Epidemiology Collaboration (CKD-EPI) equation. In line with the NKF-ASN Task Force Recommendations, this equation does not include a coefficient for race. A single eGFR value is calculated for each patient. The reference interval is >60 mL/min/1.73m2. eGFR values greater than 90 will be reported as >90mL/min/1.73m2. Reference: Robert C, Sanjana M, Iza DC, Malachi ND, Elif CA, Daljit LA, et al. A Unifying Approach for GFR Estimation: Recommendations of the NKF-ASN Task Force on Reassessing the inclusion of Race in Diagnosing Kidney Disease. Am J Kidney Dis. 2020. GFR is estimated using creatinine, age, and sex. Patient's values should be interpreted as a trend. Below 90 mL/min/1.73m2, the patient may have renal disease. For additional information: www.kidney.org Plasma 11/14/2024 5:39 AM EDT 11/14/2024 6:01 AM EDT us Brijesh Pike [facility] BLOOD ORDERABLES Final Resu lt [facility] [address] from Last 3 Months or Most Recently Relevant to Health Maintenance Insurance [facility] Advance Directives For more information, please contact: [phone] * DNRCC-A (Latest Code Status on File) Date Activated Date Inactivated Comments 10/11/2024 12:03 PM 11/14/2024 3:02 PM * Full Code Date Activated Date Inactivated Comments 10/06/2024 12:14 AM 10/11/2024 12:03 PM Care Teams Svp Relationship Specialty Start Date End Date Ector Ling MD [address] [facility] [address] [facility] [address] [place] [address] PCP - General Family Medicine 10/06/24
--- OUTSIDE RECORDS SUMMARY | 2025-06-26 09:47 | XMS_ITS | Patient Health Record ---
Author Organization [facility] Address [address] [place] [address] Care Team Providers Care New Car Salesperson Name Role Phone Carmen Clemens Unavailable [phone] Reason For Referral No Information Social History Sex Assigned At : Social History Observation Description Sex Assigned At Female Problems Problem Type SNOMED Code ICD Code Onset Dates Problem Status W/U Status Risk Notes Problem Pressure injury of left heel stage I (disorder) (5084729782351 7) Pressure injury of left heel, stage 1 (L89.621) Active confirmed Problem Pressure injury of sacral region of back stage I (disorder) (7897123573184 1) Pressure injury of sacral region, stage 1 (L89.151) Active confirmed Problem Deep tissue pressure injury of right heel (disorder) (9303628185689 62752) Pressure injury of deep tissue of right heel (L89.616) Active confirmed Encounters Encounter Location Date Provider Diagnosis [address] [place] [address] 11/15/2024 Carmen Sarath Pressure injury of deep tissue of right heel L89.616 ; Pressure injury of left heel, stage 1 L89.621 ; Problem involving surgical incision T81.89XA ; Pressure injury of sacral region, stage 1 L89.151 and Debility R53.[address] [place] [address] 11/16/2024 Carmen Sarath Pressure injury of deep tissue of right heel L89.616 ; Pressure injury of left heel, stage 1 L89.621 ; Problem involving surgical incision T81.89XA ; Pressure injury of sacral region, stage 1 L89.151 and Debility R53.[address] [place] [address] 11/19/2024 Carmen Sarath Pressure injury of deep tissue of right heel L89.616 ; Pressure injury of left heel, stage 1 L89.621 ; Problem involving surgical incision T81.89XA ; Pressure injury of sacral region, stage 1 L89.151 and Debility R53.81 Assessments Encounter Date Diagnosis (ICD Code) Assessment Notes Treatment Notes Treatment Clinical Notes Section Notes 11/19/2024 Pressure injury of deep tissue of right heel (ICD-10 - L89.616) 11/16/2024 Pressure injury of deep tissue of right heel (ICD-10 - L89.616) 11/15/2024 Pressure injury of left heel, stage 1 (ICD-10 - L89.621) 11/15/2024 Pressure injury of deep tissue of right heel (ICD-10 - L89.616) 11/15/2024 Problem involving surgical incision (ICD-10 - T81.89XA) 11/16/2024 Pressure injury of left heel, stage 1 (ICD-10 - L89.621) 11/19/2024 Pressure injury of left heel, stage 1 (ICD-10 - L89.621) 11/19/2024 Problem involving surgical incision (ICD-10 - T81.89XA) 11/16/2024 Problem involving surgical incision (ICD-10 - T81.89XA) 11/15/2024 Pressure injury of sacral region, stage 1 (ICD-10 - L89.151) 11/15/2024 Debility (ICD-10 - R53.81) 11/19/2024 Pressure injury of sacral region, stage 1 (ICD-10 - L89.151) 11/16/2024 Pressure injury of sacral region, stage 1 (ICD-10 - L89.151) 11/16/2024 Debility (ICD-10 - R53.81) 11/19/2024 Debility (ICD-10 - R53.81) Plan Of Treatment No Information Insurance Providers Payer Name Payer Address Payer Phone Subscriber Number Group Number Insured Name Patient Relationship to Insured Coverage Start Date Coverage End Date [employer] [address] [address] [place] [phone] [id number] LINNEA RYAN Self - patient is the insured 3 [place] Medicaid [address] [place] [id number] LINNEA RYAN Self - patient is the insured 2
--- OUTSIDE RECORDS SUMMARY | 2025-06-26 09:47 | XMS_ITS | Encounter Summary ---
Author Organization Healthcare Address [address] [place] [address] Care Team Providers Care Clinical Information Systems Director Name Role Phone Fernando Arias Primary Care Provider [phone] Encounter Details Date Type Department Care Team (Latest Contact Info) Description 05/16/2025 Travel Social History Tobacco Use Types Packs/Day Years [...] time in the past 12 m [facility], were you homeless or living in a senior living (including now)? No 05/15/2025 [facility] Utilities Answer Date Recorded In [...] as of this encounter Functional Status * Calculated C-SSRS Risk Score (Lifetime/Recent) Answer Date of Assessment Author No Risk Indicated 05/16/2025 8:00 PM Wesley Burger RN * Question Answer Date of Assessment Author 1. Wish to be (Past 1 Month) No 025 8:00 PM Wesley Burger, [place] 2. Non-Specific Active Suici zeus Thoughts (Past 1 Month) No 05/16/2025 8:00 PM Juan Burger RN 6. Suicidal Behavior (Lifetime) No 8:00 PM EDWesley Gagnon, [place] documented as of this encounter Plan of Treatment Upcoming Encounters Date Type Department Care Team (Late st Contact Info) Description 08/20/2025 11:40 AM EST Office Visit [facility] [address] [facility] [address], [address] [place] [address] Nikita Lai MD [address] [place] [address] documented as of this encounter Visit Diagnoses Not on filedocumented in this encounter Additional Health Concerns Assessment Noted Time A fall risk assessment has been complete d for the patient 05/07/2025 2:59 PM EDT A Body Mass Index follow-up plan has been documented for the patient 05/17/2025 5:39 PM EDT documented as of this encounter Care Teams Clinical Information Systems Director Relationship Specialty Start Date End Date Fernando Arias DO [address] [place] [address] PCP - General Manager Forensic 01/29/25 documented as of this encounter
--- OUTSIDE RECORDS SUMMARY | 2025-06-26 09:47 | XMS_ITS | Referral Summary ---
Author Organization [employer] ([place], [place], [place], [place], [place]) Address [address] [place] [address] Care Team Providers Care Surgical Corsetier Name Role Phone Juana Fernando SAXENA Primary Care Provider [phone] Encounters Date Type Department Care Team Description 04/09/2025 Telephone [facility] Cardiology - [address] [place] [address] Kristy Angeles Results (test) 04/08/2025 12:27 PM EDT - 04/08/2025 11:59 PM EDT Hospital Encounter [facility] Ultrasound [address] [place] [address] Lise Posadas MD Heart failure with preserved ejection fraction, unspecified HF chronicity (HCC); Localized edema; Shortness of breath Discharge Disposition: Home or Self Care from Last 3 Months Allergies Active Allergy Reactions Criticality Noted Date Comments Banana Nausea Only 02/21/2009 Chocolate Nausea Only 02/21/2009 Medications gabapentin (NEURONTIN) 100 MG capsule Take 2 capsules (200 mg total) by mouth 3 (three) times daily. Max Daily Amount: 600 mg 30 capsule 01/01/20 25 026 Active Additional Information Patient not taking.Reported on 03/05/2025 amiodarone (PACERONE) 200 MG tabletIndications: Atrial fibrillation (HCC) Take 1 tablet (200 mg total) by mouth 2 (two) times daily. 180 tablet 3 01/18/20 25 Active apixaban (ELIQUIS) 5 mg tab tabletIndications: Atrial fibrillation (HCC) Take 1 tablet (5 mg total) by mouth 2 (two) times daily. 180 tablet 3 01/18/20 25 Active budesonide (PULMICORT) 0.5 mg/2 mL nebulizer solutionIndication s:COPD (chronic obstructive pulmonary disease) (HCC),Tracheostomy status (HCC) Inhale 2 mLs (0.5 mg total) by nebulization 2 (two) times daily. 200 mL 01/18/20 25 Active escitalopram (LEXAPRO) 10 MG tabletIndications: Stress disorder, acute,Bipolar disorder (HCC) Take 1 tablet (10 mg total) by mouth daily. 90 tablet 3 01/18/20 25 Active ferrous sulfate 325 (65 FE) MG EC tabletIndications: Iron deficiency anemia Take 1 tablet (325 mg total) by mouth daily. 90 tablet 3 01/18/20 25 Active ipratropium-albute roL (DUO-NEB) 0.5 mg-3 mg(2.5 mg base)/3 mL nebulizer solutionIndication s:COPD (chronic obstructive pulmonary disease) (HCC),Tracheostomy status (HCC) Inhale 3 mLs by nebulization every 6 (six) hours. 300 mL 01/18/20 25 Active Additional Information Patient not taking.Reported on 03/05/2025 risperiDONE (RisperDAL) 2 MG tabletIndications: Stress disorder, acute,Bipolar disorder (HCC) Take 1 tablet (2 mg total) by mouth 2 (two) times daily. 180 tablet 3 01/18/20 25 Active valproic acid (DEPAKENE) 250 mg capsuleIndications :Stress disorder, acute,Bipolar disorder (HCC) Take 2 capsules (500 mg total) by mouth every 8 (eight) hours. 180 capsule 11 01/18/20 25 Active rosuvastatin (Crestor) 10 MG tabletIndications: Mixed hyperlipidemia Take 1 tablet (10 mg total) by mouth daily. 90 tablet 3 01/22/20 25 Active doxycycline (VIBRAMYCIN) 100 MG capsule Take 1 capsule (100 mg total) by mouth 2 (two) times daily. 02/04/20 25 Active pantoprazole (PROTONIX) 40 MG tabletIndications: GERD (gastroesophageal reflux disease) Take 1 tablet by mouth once daily 90 tablet 02/26/20 25 Active Additional Information Patient not taking.Reported on 03/05/2025 bumetanide (BUMEX) 2 MG tabletIndications: Peripheral edema,Rales Take 1 tablet (2 mg total) by mouth 2 (two) times daily. 120 tablet 03/18/20 25 Active Active Problems Problem Noted Date Diagnosed Date Mixed hyperlipidemia 01/21/2025 COPD (chronic obstructive pulmonary disease) Tracheostomy status 01/17/2025 GERD (gastroesophageal reflux disease) (HFpEF) heart failure with preserved ejection fr action 01/17/2025 Essential hypertension 01/17/2025 Bipolar disorder 01/17/2025 Atrial fibrillation 01/17/2025 Chronic pain syndrome 01/17/2025 Acute hypoxic respiratory failure 10/07/2024 Cardiac arrest 10/07/2024 Pericardial effusion 10/07/2024 Social History Tobacco [...] you? Never 11/14/2024 How often does anyone, renettakane neida family and friends, threaten you with harm? Never 11/14/2024 How often does anyone, roxane carrasquillo family and friends, scream or curse at you? Never 11/14/2024 Housing Stability Answer Date Recorded What is your living situation today? I have a [facility] place to live 11/14/2024 Think about [...] Do you speak a language other than Colombian at [facility]? No 11/14/2024 Do you want help with [...] Sign Reading Time Taken Comments Blood Pressure 150/73 03/05/2025 1:41 PM EDT Pulse 89 03/05/2025 1:41 PM EDT Temperature 36.3 C (97.4 F) 02/19/2025 2:23 PM EDT Respiratory Rate 18 02/19/2025 2:23 PM EDT Oxygen Saturation 92% 03/05/2025 1:4 1 PM EDT 2 L O2 to Trach Inhaled Oxygen Concentration 50% 09/2024 8:29 AM EDT Weight 94.2 kg (207 lb 9.6 oz) 03/05/2025 1:41 PM EDT Height 157.5 cm (5' 2 ) 02/19/2025 2:23 PM EDT Body Mass Index 37.97 02/19/2025 2:23 PM EDT Functional Status * Are you deaf or do you have serious difficulty hearing? Answer Date of Assessment Author No 01/01/2025 11:42 AM Johnna Mcarthur LPN * Are you blind or do you have serious difficulty seeing, even when wearing glasses? Answer Date of Assessment Author No 01/01/2025 11:42 AM Johnna Mcarthur LPN * Do you have serious difficulty walking or climbing stairs? Answer Date of Assessment Author Yes 01/01/2025 11:42 AM Johnna Mcarthur LPN * Do you have serious difficulty dressing or bathing? Answer Date of Assessment Author Yes 01/01/2025 11:42 AM Johnna Mcarthur LPN * Because of a physical, mental, or emotional condition, do you have serious difficulty doing errandsalone such as visiting the doctor? Answer Date of Assessment Author Yes 01/01/2025 11:42 AM Johnna Mcarthur LPN Mental Status * Because of a physical, mental, or emotional condition, do you have serious difficulty concentrating, remembering, or making decisions? (5 years old or older) Answer Entry Date Author Yes 01/01/2025 11:42 AM Johnna Mcarthur LPN Plan of Treatment Not on file Procedures Procedure Name Priority Date/Time Associated Diagnosis Comments US DOPPLER VENOUS LEGS BILATERAL Routine 04/08/2025 1:23 PM EDT Heart failure with preserved ejection fraction, unspecified HF chronicity (HCC) Localized edema Shortness of breath HEPATITIS C ANTIBODY Routine 01/17/2025 12:28 PM EDT Encounter for hepatitis C screening test for low risk patient HIV-1 ANTIGEN WITH HIV-1/2 ANTIBODY Routine 01/17/2025 12:28 PM EDT Screening for HIV (human immunodeficiency virus) LIPID PANEL Routine 01/17/2025 12:28 PM EDT Cardiac arrest (HCC) (HFpEF) heart failure with preserved ejection fraction (HCC) from Last 3 Months or Most Recently Relevant to Health Maintenance Results * US DOPPLER VENOUS LEGS BILATERAL (04/08/2025 1:23 PM EDT) Anatomical Region Laterality Modality Lower Extremity Ultrasound 04/08/2025 2:29 PM EDT Impressions 04/08/2025 2:40 PM EDT No evidence of left or right lower extremity deep venous thrombosis. Images reviewed, interpreted, and dictated by Dr. Zac Yeung. Transcribed by Kirill Clark PA-C. Narrative 04/08/2025 2:40 PM EDT BILATERAL LOWER EXTREMITY VENOUS DUPLEX DOPPLER EXAMINATION HISTORY: Bilateral lower extremity swelling . PROCEDURE: Multiple transverse and longitudinal scans were performed of both femoropopliteal deep venous system, with augmentation and compression maneuvers. Analysis was performed using sheth scale, Doppler color imaging and spectral analysis. FINDINGS: Normal phasic flow was noted in the visualized deep venous system. No intraluminal increased echogenicity is noted to suggest thrombus. There is normal compression and augmentation of the venous structures. No abnormal venous collaterals are seen. No venous reflux is demonstrated . Procedure Note Dexter Yeung MD - 04/08/2025 BILATERAL LOWER EXTREMITY VENOUS DUPLEX DOPPLER EXAMINATION HISTORY: Bilateral lower extremity swelling . PROCEDURE: Multiple transverse and longitudinal scans were performed of both femoropopliteal deep venous system, with augmentation and compression maneuvers. Analysis was performed using sheth scale, Doppler color imaging and spectral analysis. FINDINGS: Normal phasic flow was noted in the visualized deep venous system. No intraluminal increased echogenicity is noted to suggest thrombus. There is normal compression and augmentation of the venous structures. No abnormal venous collaterals are seen. No venous reflux is demonstrated . IMPRESSION: No evidence of left or right lower extremity deep venous thrombosis. Images reviewed, interpreted, and dictated by Dr. Zac Yeung. Transcribed by Kirill Clark PA-C. us Lise Posadas MD CV VASCULAR ORDERABLES Final Result * HIV-1 Antigen with HIV-1/2 Antibody (01/17/2025 12:28 PM EDT) Pathologist [facility] HIV Screen 4th Generation wRfx Non Reactive Non Reactive [facility] Comment: HIV-1/HIV-2 antibodies and HIV-1 p24 antigen were NOT detected. There is no laboratory evidence of HIV infection. HIV Negative Blood 01/17/2025 12:2 8 PM EDT 01/17/2025 Narrative [facility] - 01/20/2025 4:07 PM EDT Performed at: [address] [place] [id number] Net Finisher: Eder Castañeda PhD, Phone: [phone] Fernando Juana DO LAB BLOOD ORDERABLES Final Resul t Performing Organization Address [facility] de Phone Number [facility] * Hepatitis C antibody (01/17/2025 12:28 PM EDT) [facility] Hep C Virus Ab Non Reactive Non Reactive [facility] Comment: HCV antibody alone does not differentiate between previously resolved infection and active infection. Equivocal and Reactive HCV antibody results should be followed up with an HCV RNA test to support the diagnosis of active HCV infection. Blood 01/17/2025 12:2 8 PM EDT 01/17/2025 Narrative [facility] - 01/20/2025 4:07 PM EDT Performed at: [facility] [address] [id number] Net Finisher: Eder Castañeda PhD, Phone: [phone] Fernando Juana DO LAB BLOOD ORDERABLES Final Resul t Performing Organization Address [facility] Co de Phone Number [facility] * (ABNORMAL) Lipid panel (01/17/2025 12:28 PM EDT) Cholesterol, Total 237(H) 100 - 199 mg/dL [facility] Triglycerides 166(H) 0 - 149 mg/dL [facility] HDL Cholesterol 47 >39 mg/dL [facility] VLDL Cholesterol Jimmy 30 5 - 40 mg/dL [facility] LDL Calculated 160(H) 0 - 99 mg/dL [facility] Blood 01/17/2025 12:2 8 PM EDT 01/17/2025 Narrative [facility] - 01/20/2025 4:07 PM EDT Performed at: - [facility] [address] [id number] Net Finisher: Eder Castañeda PhD, Phone: [phone] Fernando Arias DO LAB BLOOD ORDERABLES Final Resul t [facility] from Last 3 Months or Most Recently Relevant to Health Maintenance Additional Health Concerns Infection Onset Date Last Indicated C. difficile 11/14/2024 11/14/2024 Insurance [facility] Advance Directives For more information, please contact: [phone] Documents on File Type Date Recorded Patient Rehab Director Expl anation Advance Directives and Living Will 11/14/2024 * DNR - Full Scope of Treatment (Latest Code Status on File) Date Activated Date Inactivated Comments 11/14/2024 11:43 AM 01/01/2025 2:16 PM Care Teams Surgical Corsetier Relationship Specialty Start Date End Date Fernando Arias DO [address], [address] [address] PCP - General Family Medicine 01/17/25
--- OUTSIDE RECORDS SUMMARY | 2025-06-26 09:47 | XMS_ITS | Clinical Summary ---
Author Organization [employer] ([place], [place], [place], [place], [place]) Address [address] [place] [address] Care Team Providers Care Local Company Intermodal Truck Driver Name Role Phone JuanaFernando Primary Care Provider [phone] Allergies Active Allergy Reactions Criticality Noted Date [...] 10/07/2024 Cardiac arrest 10/07/2024 Pericardial effusion 10/07/2024 Encounters Date Type Department Care Team Description 04/09/2025 Telephone [facility] Cardiology - [address] [place] [address] Kristy Angeles Results (test) 04/08/2025 12:27 PM EDT - 04/08/2025 11:59 PM EDT Hospital Encounter [facility] [address] [place] [address] Lise Posadas MD Heart failure with preserved ejection fraction, unspecified HF chronicity (HCC); Localized edema; Shortness of breath Discharge Disposition: Home or Self Care from Last 3 Months Social History Tobacco Use Types Packs/Day Years [...] your living situation today? I have a [facility] place to live 11/14/2024 Think about [...] Do you speak a language other than [facility]? No 11/14/2024 Do you want help [...] Mass Index 37.97 02/19/2025 2:23 PM EDT Plan of Treatment Health Maintenance Due Date Last Done Comments CT Colonography 1970 Colonoscopy 1970 Colorectal Cancer Screening 1970 FOBT/FIT 1970 Fit-DNA (Cologuard) 1970 Sigmoidoscopy 1970 DTAP/TDAP/TD VACCINES (1 - Tdap) 1989 Pap Smear 10/15/1991 Breast Cancer Screening 2010 Shingles Vaccine (Zoster) (1 of 2) 2020 COVID-19 VACCINE (1 - season) 2025 Influenza Vaccine (#1) 2025 Statin - ASCVD Risk Prevention 01/21/2026 01/21/2025 Tobacco Cessation Counseling and Screening (12+) 03/0503/05/2025 Lipid Panel 01/18/2028 01/17/2025 Pneumococcal 50+ years Completed 09/26/2024 HIV Screening Completed 01/17/2025 Hepatitis C Screening Completed 01/17/2025 Procedures Procedure Name Priority Date/Time Associated Diagnosis [...] Zac Yeung. Transcribed by Kirill Clark PA-C. Lise Posadas MD CV VASCULAR ORDERABLES Final Result * HIV-1 Antigen with HIV-1/2 Antibody (01/17/2025 12:28 PM EDT) [facility] HIV Screen 4th Generation wRfx Non Reactive Non Reactive [facility] Comment: HIV-1/HIV-2 antibodies and HIV-1 p24 antigen were NOT detected. There is no laboratory evidence of HIV infection. HIV Negative Blood 01/17/2025 12:2 8 PM EDT 01/17/2025 Narrative [facility] - 01/20/2025 4:07 PM EDT Performed at: - [address] [id number] City Jailer: Eder Castañeda PhD, Phone: [phone] Fernando Kwokp DO LAB BLOOD ORDERABLES Final Resul t Performing Organization Address [facility] de Phone Number [facility] * Hepatitis C antibody (01/17/2025 12:28 PM EDT) [facility] Hep C Virus Ab Non Reactive [...] 01/20/2025 4:07 PM EDT Performed at: - [address] [id number] City Jailer: Eder Castañeda PhD, Phone: [phone] Fernando Juana DO LAB BLOOD ORDERABLES Final Resul t Performing Organization Address [facility] de Phone Number [facility] * (ABNORMAL) Lipid panel (01/17/2025 12:28 PM EDT) [facility] Cholesterol, Total 237(H) 100 - 199 mg/dL [facility] Triglycerides 166(H) 0 - 149 mg/dL [facility] HDL Cholesterol 47 >39 mg/dL [facility] VLDL Cholesterol Jimmy 30 5 - 40 mg/dL [facility] LDL Calculated 160(H) 0 - 99 mg/dL [facility] Blood 01/17/2025 12:2 8 PM EDT 01/17/2025 Narrative [facility] - 01/20/2025 4:07 PM EDT Performed at: 01 - [facility] [address] [id number] City Jailer: Eder Castañeda PhD, Phone: [phone] Fernando Arias DO LAB BLOOD ORDERABLES Final Resul t [facility] from Last 3 Months or Most Recently Relevant to Health Maintenance Additional Health Concerns Infection Onset Date Last Indicated C. difficile 11/14/2024 11/14/2024 Insurance [facility] Advance Directives For more information, please contact: [phone] Documents on File Type Date Recorded Patient Trail Construction Worker Expl anation Advance Directives and Living Will 11/14/2024 * DNR - Full Scope of Treatment (Latest Code Status on File) Date Activated Date Inactivated Comments 11/14/2024 11:43 AM 01/01/2025 2:16 PM Care Teams Local Company Intermodal Truck Driver Relationship Specialty Start Date End Date Fernando Arias DO [address] [place] [address] PCP - General Family Medicine 01/17/25
--- OUTSIDE RECORDS SUMMARY | 2025-06-26 09:47 | XMS_ITS | Encounter Summary ---
Author Organization Healthcare Address [address] [place] [address] Care Team Providers Care Site Planner Name Role Phone Fernando Arias Primary Care Provider [phone] Encounter Details Date Type Department Care Team (Latest Contact Info) Description 05/15/2025 Travel Social History Tobacco Use Types Packs/Day [...] any time in the past 12 m [facility], were you homeless or living in a assisted (including now)? No 05/15/2025 [facility] Utilities Answer Date Recorded In [...] Date of Assessment Author No Risk Indicated 05/15/2025 4:00 PM EDT Milagros Bruno RN * Question Answer Date of Assessment Author 1. Wish to be (Past 1 Month) No 025 4:00 PM Milagros Tran RN 2. Non-Specific Active Suici zeus Thoughts (Past 1 Month) No 05/15/2025 4:00 PM OMIDT Milagros Bruno RN 6. Suicidal Behavior (Lifetime) No 4:00 PM Milagros Tran RN documented as of this encounter Plan of Treatment Upcoming Encounters Date Type Department Care Team (Late st Contact Info) Description 08/20/2025 11:40 AM EST Office Visit [facility] [address], [address] [place] [address] Nikita Lai MD [address] [place] [address] documented as of this encounter Visit Diagnoses Not on filedocumented in this encounter Additional Health Concerns Assessment Noted Time A fall risk assessment has been complete d for the patient 05/07/2025 2:59 PM EDT A Body Mass Index follow-up plan has been documented for the patient 05/17/2025 5:39 PM EDT documented as of this encounter Care Teams Site Planner Relationship Specialty Start Date End Date Fernando Arias DO [address] [place] [address] PCP - General Chemistry Research Assistant 01/29/25 documented as of this encounter
--- OUTSIDE RECORDS SUMMARY | 2025-06-26 09:48 | XMS_ITS | Encounter Summary ---
Author Organization Healthcare Address [address] [place] [address] Care Team Providers Care Dress Finisher Name Role Phone Fernando Arias DO Primary Care Provider [phone] Ruth Ann Appiah LPN Unavailable Unavailabl e Encounter Details Date Type Department Care Team (Late st Contact Info) Description 12/11/2024 Orders Only External Location [address] [place] [address] Provider, External Social History Tobacco Use Types Packs/Day Years [...] [facility] [address], [address] [place] [address] Nikita Lai MD [address] [facility] [address] [place] [phone] documented as of this encounter Procedures Procedure Name Priority Date/Time Associated Diagnosis Comments XR OUTSIDE IMAGES 12/11/2024 7:53 AM EDT documented in this encounter Results * XR OUTSIDE IMAGES (12/11/2024 7:53 AM EDT) Anatomical Region Laterality Modality Radiographic Khushi ging 12/11/2024 7:53 AM EDT us External Provider IMG XR PROCEDURES Final Result documented in this encounter Visit Diagnoses Not on filedocumented in this encounter Care Teams Dress Finisher Relationship Specialty Start Date End Date Fernando Arias DO [facility] [place] [address] PCP - General Page Technician 01/29/25 Ruth Ann Appiah, EDWAR [facility] None TCM Nurse 05/20/25 06/19/25 documented as of this encounter
--- OUTSIDE RECORDS SUMMARY | 2025-06-26 09:48 | XMS_ITS | Encounter Summary ---
Author Organization Healthcare Address [address] [place] [address] Care Team Providers Care Slitting And Shipping Supervisor Name Role Phone Fernando Arias DO Primary Care Provider [phone] Ruth Ann Appiah LPN Unavailable Unavailabl e Encounter Details Date Type Department Care Team (Late st Contact Info) Description 11/29/2024 Orders Only External Location [address] [place] [address] Provider, External Social History Tobacco Use Types [...] [facility] [address], [address] [place] [address] Nikita Lai MD [address] [facility] [address] [place] [address] documented as of this encounter Procedures Procedure Name Priority Date/Time Associated Diagnosis Comments XR OUTSIDE IMAGES 11/29/2024 8:49 AM EDT documented in this encounter Results * XR OUTSIDE IMAGES (11/29/2024 8:49 AM EDT) Anatomical Region Laterality Modality Radiographic Khushi ging 11/29/2024 8:49 AM EDT us External Provider IMG XR PROCEDURES Final Result documented in this encounter Visit Diagnoses Not on filedocumented in this encounter Care Teams Slitting And Shipping Supervisor Relationship Specialty Start Date End Date Fernando Arias DO [address] [place] [address] PCP - General Heel Finisher 01/29/25 Ruth Ann Appiah LPN [facility] None TCM Nurse 05/20/25 06/19/25 documented as of this encounter
--- OUTSIDE RECORDS SUMMARY | 2025-06-26 09:48 | XMS_ITS | Encounter Summary ---
Author Organization Healthcare Address [address] [place] [address] Care Team Providers Care Art Installer Name Role Phone Fernando Arias DO Primary Care Provider [phone] Ruth Ann Appiah LPN Unavailable Unavailabl e Encounter Details Date Type Department Care Team (Late st Contact Info) Description 12/02/2024 Orders Only External Location [address] [place] [address] Provider, External Social History Tobacco Use Types [...] [facility] [address] [facility] [address] [facility], [address] [place] [address] Nikita Lai MD [address] [facility] [address] [place] [address] documented as of this encounter Procedures Procedure Name Priority Date/Time Associated Diagnosis Comments XR OUTSIDE IMAGES 12/02/2024 7:06 AM EDT documented in this encounter Results * XR OUTSIDE IMAGES (12/02/2024 7:06 AM EDT) Anatomical Region Laterality Modality Radiographic Khushi ging 12/02/2024 7:06 AM EDT us External Provider IMG XR PROCEDURES Final Result documented in this encounter Visit Diagnoses Not on filedocumented in this encounter Care Teams Art Installer Relationship Specialty Start Date End Date Fernando Arias DO [address] [place] [address] PCP - General Oil Well Gun Perforator Operator 01/29/25 Ruth Ann Appiah LPN [facility] None TCM Nurse 05/20/25 06/19/25 documented as of this encounter
--- OUTSIDE RECORDS SUMMARY | 2025-06-26 09:48 | XMS_ITS | Encounter Summary ---
Author Organization Healthcare Address [address] [place] [address] Care Team Providers Care Furnace Keeper Name Role Phone Fernando Arias DO Primary Care Provider [phone] Ruth Ann Appiah LPN Unavailable Unavailabl e Encounter Details Date Type Department Care Team (Late st Contact Info) Description 11/28/2024 Orders Only External Location [address] [place] [address] Provider, External Social History Tobacco Use Types [...] [facility] [address] [facility], [address] [place] [address] Nikita Lai MD [address] [facility] [address] [place] [address] documented as of this encounter Procedures Procedure Name Priority Date/Time Associated Diagnosis Comments XR ABDOMEN OUTSIDE IMAGES 11/28/2024 4:15 PM EDT documented in this encounter Results * XR ABDOMEN OUTSIDE IMAGES (11/28/2024 4:15 PM EDT) Anatomical Region Laterality Modality Radiographic Khushi ging 11/28/2024 4:15 PM EDT us External Provider IMG XR PROCEDURES Final Result documented in this encounter Visit Diagnoses Not on filedocumented in this encounter Care Teams Furnace Keeper Relationship Specialty Start Date End Date Fernando Arias DO [address] [place] [address] PCP - General Nozzle Operator 01/29/25 Ruth Ann Appiah, EDWAR [facility] None TCM Nurse 05/20/25 06/19/25 documented as of this encounter
--- OUTSIDE RECORDS SUMMARY | 2025-06-26 09:48 | XMS_ITS | Encounter Summary ---
Author Organization Healthcare Address [address] [place] [address] Care Team Providers Care Certified Pedorthotist Name Role Phone Fernando Arias DO Primary Care Provider [phone] Ruth Ann Appiah LPN Unavailable Unavailabl e Encounter Details Date Type Department Care Team (Late st Contact Info) Description 12/03/2024 Orders Only External Location [address] [place] [address] Provider, External Social History Tobacco Use Types [...] [facility] [address] [facility], [address] [place] [address] Nikita Lai MD [address] [facility] [address] [place] [address] documented as of this encounter Procedures Procedure Name Priority Date/Time Associated Diagnosis Comments XR OUTSIDE IMAGES 12/03/2024 8:34 AM EDT documented in this encounter Results * XR OUTSIDE IMAGES (12/03/2024 8:34 AM EDT) Anatomical Region Laterality Modality Radiographic Khushi ging 12/03/2024 8:34 AM EDT us External Provider IMG XR PROCEDURES Final Result documented in this encounter Visit Diagnoses Not on filedocumented in this encounter Care Teams Certified Pedorthotist Relationship Specialty Start Date End Date Fernando Arias DO [address] [place] [address] PCP - General Government Instructor 01/29/25 Ruth Ann Appiah, EDWAR [facility] None TCM Nurse 05/20/25 06/19/25 documented as of this encounter
--- OUTSIDE RECORDS SUMMARY | 2025-06-26 09:48 | XMS_ITS | Encounter Summary ---
Author Organization Healthcare Address [address] [place] [address] Care Team Providers Care Tin Can Laborer Name Role Phone Juana Fernando Renteria DO Primary Care Provider [phone] Ruth Ann Appiah LPN Unavailable Unavailabl e Reason for Visit * Reason Onset Date Comments Prior-authorization/insurance Verification 05/20 Encounter Details Date Type Department Care Team (Late st Contact Info) Description 05/20/2025 Telephone [facility] Medicine Virtual Dept. [address] [place] [address] Jaylon Lovett MD [address] [place] [address] Prior-authorization/ins urance Verification Social History Tobacco Use [...] any time in the past 12 m [facility], were you homeless or living in a long term (including now)? No 05/20/2025 [facility] Utilities Answer Date Recorded In the [...] Upcoming Encounters Date Type Department Care Team ([facility] st Contact Info) Description 08/20/2025 11:40 AM EST [facility] [address] [facility], [address] [place] [address] Nikita Lai MD [address] [place] [address] documented as of this encounter Visit Diagnoses Not on filedocumented in this encounter Additional Health Concerns Assessment Noted Time A fall risk assessment has been complete d for the patient 05/07/2025 2:59 PM EDT A Body Mass Index follow-up plan has been documented for the patient 05/17/2025 5:39 PM EDT documented as of this encounter Care Teams Tin Can Laborer Relationship Specialty Start Date End Date Fernando Arias DO [address] [place] [address] PCP - General Scoop Filler 01/29/25 Ruth Ann Appiha LPN [facility] None TCM Nurse 05/20/25 06/19/25 documented as of this encounter
--- OUTSIDE RECORDS SUMMARY | 2025-06-26 09:48 | XMS_ITS | Encounter Summary ---
Author Organization Healthcare Address [address] [place] [address] Care Team Providers Care Choke Setter Name Role Phone Fernando Arias DO Primary Care Provider [phone] Ruth Ann Appiah LPN Unavailable Unavailabl e Encounter Details Date Type Department Care Team (Late st Contact Info) Description 11/28/2024 Orders Only External Location [address] [place] [address] Provider, External Social History Tobacco Use Types [...] [facility] [address] [facility], [address] [place] [address] Nikita Lai MD [address] [facility] [address] [place] [address] documented as of this encounter Procedures Procedure Name Priority Date/Time Associated Diagnosis Comments XR OUTSIDE IMAGES 11/28/2024 6:43 AM EDT documented in this encounter Results * XR OUTSIDE IMAGES (11/28/2024 6:43 AM EDT) Anatomical Region Laterality Modality Radiographic Khushi ging 11/28/2024 6:43 AM EDT us External Provider IMG XR PROCEDURES Final Result documented in this encounter Visit Diagnoses Not on filedocumented in this encounter Care Teams Choke Setter Relationship Specialty Start Date End Date Fernando Arias DO [facility] [place] [address] PCP - General Certified Lactation Counselor 01/29/25 Ruth Ann Appiah LPN [facility] None TCM Nurse 05/20/25 06/19/25 documented as of this encounter
--- OUTSIDE RECORDS SUMMARY | 2025-06-26 09:48 | XMS_ITS | Encounter Summary ---
Author Organization Healthcare Address [address] [place] [address] Care Team Providers Care Sql Programmer Name Role Phone Fernando Arias DO Primary Care Provider [phone] Ruth Ann Appiah LPN Unavailable Unavailabl e Encounter Details Date Type Department Care Team (Late st Contact Info) Description 11/30/2024 Orders Only External Location [address] [place] [address] Provider, External Social History Tobacco Use Types [...] [facility] [address] [facility], [address] [place] [address] Nikita Lai MD [address] [facility] [address] [place] [address] documented as of this encounter Procedures Procedure Name Priority Date/Time Associated Diagnosis Comments XR OUTSIDE IMAGES 11/30/2024 7:15 AM EDT documented in this encounter Results * XR OUTSIDE IMAGES (11/30/2024 7:15 AM EDT) Anatomical Region Laterality Modality Radiographic Khushi ging 11/30/2024 7:15 AM EDT us External Provider IMG XR PROCEDURES Final Result documented in this encounter Visit Diagnoses Not on filedocumented in this encounter Care Teams Sql Programmer Relationship Specialty Start Date End Date Fernando Arias DO [address] [place] [address] PCP - General Party Plan Dealer 01/29/25 Ruth Ann Appiah LPN [facility] None TCM Nurse 05/20/25 06/19/25 documented as of this encounter
--- OUTSIDE RECORDS SUMMARY | 2025-06-26 09:48 | XMS_ITS | Encounter Summary ---
Author Organization Healthcare Address [address] [place] [address] Care Team Providers Care Medical Fee Clerk Name Role Phone Fernando Arias DO Primary Care Provider [phone] Ruth Ann Appiah LPN Unavailable Unavailabl e Encounter Details Date Type Department Care Team (Late st Contact Info) Description 12/01/2024 Orders Only External Location [address] [place] [address] Provider, External Social History Tobacco Use Types [...] [facility] [address] [facility], [address] [place] [address] Nikita Lai MD [address] [facility] [address] [place] [address] documented as of this encounter Procedures Procedure Name Priority Date/Time Associated Diagnosis Comments XR OUTSIDE IMAGES 12/01/2024 9:41 AM EDT documented in this encounter Results * XR OUTSIDE IMAGES (12/01/2024 9:41 AM EDT) Anatomical Region Laterality Modality Radiographic Khushi ging 12/01/2024 9:41 AM EDT us External Provider IMG XR PROCEDURES Final Result documented in this encounter Visit Diagnoses Not on filedocumented in this encounter Care Teams Medical Fee Clerk Relationship Specialty Start Date End Date Fernando Arias DO [facility] [place] [address] PCP - General Circuit Tester 01/29/25 Ruth Ann Appiah LPN [facility] None TCM Nurse 05/20/25 06/19/25 documented as of this encounter
--- OUTSIDE RECORDS SUMMARY | 2025-06-26 09:48 | XMS_ITS | Encounter Summary ---
Author Organization Healthcare Address [address] [place] [address] Care Team Providers Care Wall Steamer Name Role Phone Fernando Arias DO Primary Care Provider [phone] Ruth Ann Appiah LPN Unavailable Unavailabl e Encounter Details Date Type Department Care Team (Late st Contact Info) Description 12/07/2024 Orders Only External Location [address] [place] [address] Provider, External Social History Tobacco Use Types [...] [facility] [address] [facility], [address] [place] [address] Nikita Lai MD [address] [facility] [address] [place] [address] documented as of this encounter Procedures Procedure Name Priority Date/Time Associated Diagnosis Comments XR OUTSIDE IMAGES 12/07/2024 10:32 AM EDT documented in this encounter Results * XR OUTSIDE IMAGES (12/07/2024 10:32 AM EDT) Anatomical Region Laterality Modality Radiographic Khushi ging 12/07/2024 10:3 2 AM EDT us External Provider IMG XR PROCEDURES Final Result documented in this encounter Visit Diagnoses Not on filedocumented in this encounter Care Teams Wall Steamer Relationship Specialty Start Date End Date Fernando Arias DO [address] [place] [address] PCP - General Personal Lines Appraiser 01/29/25 Ruth Ann Appiah LPN [facility] None TCM Nurse 05/20/25 06/19/25 documented as of this encounter
--- OUTSIDE RECORDS SUMMARY | 2025-06-26 09:49 | XMS_ITS | Encounter Summary ---
Author Organization Healthcare Address [address] [place] [address] Care Team Providers Care Golf Player Assistant Name Role Phone Fernando Arias DO Primary Care Provider [phone] Ruth Ann Appiah LPN Unavailable Unavailabl e Encounter Details Date Type Department Care Team (Late st Contact Info) Description 11/14/2024 Orders Only External Location [address] [place] [address] Provider, External Social History Tobacco Use Types [...] [facility] [address] [facility], [address] [place] [address] Nikita Lai MD [address] [facility] [address] [place] [address] documented as of this encounter Procedures Procedure Name Priority Date/Time Associated Diagnosis Comments XR ABDOMEN OUTSIDE IMAGES 11/14/2024 3:26 PM EDT documented in this encounter Results * XR ABDOMEN OUTSIDE IMAGES (11/14/2024 3:26 PM EDT) Anatomical Region Laterality Modality Radiographic Khushi ging 11/14/2024 3:26 PM EDT us External Provider IMG XR PROCEDURES Final Result documented in this encounter Visit Diagnoses Not on filedocumented in this encounter Care Teams Golf Player Assistant Relationship Specialty Start Date End Date Fernando Arias DO [address] [place] [address] PCP - General Mission Assessment Specialist 01/29/25 Ruth Ann Appiah, EDWAR [facility] None TCM Nurse 05/20/25 06/19/25 documented as of this encounter
--- OUTSIDE RECORDS SUMMARY | 2025-06-26 09:49 | XMS_ITS | Encounter Summary ---
Author Organization Healthcare Address [address] [place] [address] Care Team Providers Care Surgical Garment Inspector Name Role Phone Fernando Arias DO Primary Care Provider [phone] Ruth Ann Appiah LPN Unavailable Unavailabl e Encounter Details Date Type Department Care Team (Late st Contact Info) Description 11/27/2024 Orders Only External Location [address] [place] [address] Provider, External Social History Tobacco Use Types [...] [facility] [address] [facility], [address] [place] [address] Nikita Lai MD [address] [facility] [address] [place] [address] documented as of this encounter Procedures Procedure Name Priority Date/Time Associated Diagnosis Comments XR OUTSIDE IMAGES 11/27/2024 6:05 AM EDT documented in this encounter Results * XR OUTSIDE IMAGES (11/27/2024 6:05 AM EDT) Anatomical Region Laterality Modality Radiographic Khushi ging 11/27/2024 6:05 AM EDT us External Provider IMG XR PROCEDURES Final Result documented in this encounter Visit Diagnoses Not on filedocumented in this encounter Care Teams Surgical Garment Inspector Relationship Specialty Start Date End Date Fernando Arias DO [facility] [place] [address] PCP - General Motorcoach Driver 01/29/25 Ruth Ann Appiah LPN [facility] None TCM Nurse 05/20/25 06/19/25 documented as of this encounter
--- OUTSIDE RECORDS SUMMARY | 2025-06-26 09:49 | XMS_ITS | Encounter Summary ---
Author Organization Healthcare Address [address] [place] [address] Care Team Providers Care Railroad Inspector Name Role Phone Fernando Arias DO Primary Care Provider [phone] Ruth Ann Appiah LPN Unavailable Unavailabl e Encounter Details Date Type Department Care Team (Late st Contact Info) Description 11/22/2024 Orders Only External Location [address] [place] [address] Provider, External Social History Tobacco Use Types [...] [facility] [address] [facility] [place], [address] [place] [address] Nikita Lai MD [address] [facility] [address] [place] [address] documented as of this encounter Procedures Procedure Name Priority Date/Time Associated Diagnosis Comments XR OUTSIDE IMAGES 11/22/2024 6:51 AM EDT documented in this encounter Results * XR OUTSIDE IMAGES (11/22/2024 6:51 AM EDT) Anatomical Region Laterality Modality Radiographic Khushi ging 11/22/2024 6:51 AM EDT us External Provider IMG XR PROCEDURES Final Result documented in this encounter Visit Diagnoses Not on filedocumented in this encounter Care Teams Railroad Inspector Relationship Specialty Start Date End Date Fernando Arias DO [address] [place] [address] PCP - General Drag Out Man 01/29/25 Ruth Ann Appiah, EDWAR [facility] None TCM Nurse 05/20/25 06/19/25 documented as of this encounter
--- OUTSIDE RECORDS SUMMARY | 2025-06-26 09:49 | XMS_ITS | Encounter Summary ---
Author Organization Healthcare Address [address] [place] [address] Care Team Providers Care Bereavement Program Coordinator Name Role Phone Fernando Arias DO Primary Care Provider [phone] Ruth Ann Appiah LPN Unavailable Unavailabl e Encounter Details Date Type Department Care Team (Late st Contact Info) Description 02/19/2025 Orders Only External Location [address] [place] [address] Provider, External Social History Tobacco Use Types [...] [facility], [address] [place] [address] Nikita Lai MD [address] [facility] [address] [place] [address] documented as of this encounter Procedures Procedure Name Priority Date/Time Associated Diagnosis Comments XR OUTSIDE IMAGES 02/19/2025 3:50 PM EDT documented in this encounter Results * XR OUTSIDE IMAGES (02/19/2025 3:50 PM EDT) Anatomical Region Laterality Modality Radiographic Khushi ging 02/19/2025 3:50 PM EDT us External Provider IMG XR PROCEDURES Final Result documented in this encounter Visit Diagnoses Not on filedocumented in this encounter Care Teams Bereavement Program Coordinator Relationship Specialty Start Date End Date Fernando Arias DO [address] [place] [address] PCP - General Television Journalist 01/29/25 Ruth Ann Appiah, EDWAR [facility] None TCM Nurse 05/20/25 06/19/25 documented as of this encounter
--- OUTSIDE RECORDS SUMMARY | 2025-06-26 09:49 | XMS_ITS | Encounter Summary ---
Author Organization Healthcare Address [address] [place] [address] Care Team Providers Care Chair Inspector And Leveler Name Role Phone Fernando Arias DO Primary Care Provider [phone] Ruth Ann Appiah LPN Unavailable Unavailabl e Encounter Details Date Type Department Care Team (Late st Contact Info) Description 11/21/2024 Orders Only External Location [address] [place] [address] Provider, External Social History Tobacco Use Types [...] [facility] [address] [facility], [address] [place] [address] Nikita Lai MD [address] [facility] [address] [place] [address] documented as of this encounter Procedures Procedure Name Priority Date/Time Associated Diagnosis Comments XR OUTSIDE IMAGES 11/21/2024 7:14 AM EDT documented in this encounter Results * XR OUTSIDE IMAGES (11/21/2024 7:14 AM EDT) Anatomical Region Laterality Modality Radiographic Khushi ging 11/21/2024 7:14 AM EDT us External Provider IMG XR PROCEDURES Final Result documented in this encounter Visit Diagnoses Not on filedocumented in this encounter Care Teams Chair Inspector And Leveler Relationship Specialty Start Date End Date Fernando Arias DO [facility] [place] [address] PCP - General Programs Director 01/29/25 Ruth Ann Appiah, EDWAR [facility] None TCM Nurse 05/20/25 06/19/25 documented as of this encounter
--- OUTSIDE RECORDS SUMMARY | 2025-06-26 09:49 | XMS_ITS | Encounter Summary ---
Author Organization Healthcare Address [address] [place] [address] Care Team Providers Care Public Stenographer Name Role Phone Fernando Arias Primary Care Provider [phone] Encounter Details Date Type Department Care Team (Latest Contact Info) Description 05/14/2025 Travel Social History Tobacco Use Types Packs/Day [...] time in the past 12 m [facility], were you homeless or living in a skilled nursing (including now)? No 05/15/2025 [facility] Utilities Answer Date Recorded In the [...] Date of Assessment Author No Risk Indicated 05/14/2025 8:01 PM Rosendo Stallworth, LAWRENCE * Question Answer Date of Assessment Author 1. Wish to be (Past 1 Month) No 025 8:01 PM Rosendo Stallworth, LAWRENCE 2. Non-Specific Active Suici zeus Thoughts (Past 1 Month) No 05/14/2025 8:01 PM Santhosh Stallworth, RN 6. Suicidal Behavior (Lifetime) No 8:01 PM Rosendo Stallworth, RN documented as of this encounter Plan of Treatment Upcoming Encounters Date Type Department Care Team (Late st Contact Info) Description 08/20/2025 11:40 AM EST [facility] [address] [facility], [address] [place] [address] Nikita Lai MD [address] [place] [address] documented as of this encounter Visit Diagnoses Not on filedocumented in this encounter Additional Health Concerns Assessment Noted Time A fall risk assessment has been complete d for the patient 05/07/2025 2:59 PM EDT A Body Mass Index follow-up plan has been documented for the patient 05/17/2025 5:39 PM EDT documented as of this encounter Care Teams Public Stenographer Relationship Specialty Start Date End Date Fernando Arias DO [address] [place] [address] PCP - General Aeronautics Teacher 01/29/25 documented as of this encounter
--- OUTSIDE RECORDS SUMMARY | 2025-06-26 09:49 | XMS_ITS | Encounter Summary ---
Author Organization Healthcare Address [address] [place] [address] Care Team Providers Care Electric Motor Tester Name Role Phone Fernando Arias DO Primary Care Provider [phone] Ruth Ann Appiah LPN Unavailable Unavailabl e Encounter Details Date Type Department Care Team (Late st Contact Info) Description 11/14/2024 Lab Requisition [facility] [address] [place] [address] System, Provider Not In, [address] [place] [address] Encounter for general adult medical examination without abnormal findings Social History Tobacco Use Types Packs/Day Years Used Date Smoking Tobacco: Never Assessed Comments Unknown Sex and Gender Information Value Date Recorded Sex Assigned at Not on file Legal Sex Female 9:11 AM EST Gender Identity Not on file Sexual Orientation Not on file documented as of this encounter Plan of Treatment Upcoming Encounters Date Type Department Care Team (Late Contact Info) Description 08/20/2025 11:40 AM EST [facility] [address] [place] [address] Nikita Lai MD [address] [facility] [address] [place] [address] documented as of this encounter Procedures Procedure Name Priority Date/Time Associated Diagnosis Comments ALEXIA AURIS SURVEILLANCE BY PCR Routine 11/14/2024 1:26 PM EDT Encounter for general adult medical examination without abnormal findings documented in this encounter Results * Alexia auris Surveillance by PCR (11/14/2024 1:26 PM EDT) Alexia auris PCR Result Not Detected Not Detected 11/15/2024 10:17 AM EDT [facility] Swab (Axilla and Groin) 11/14/2024 1:26 PM EDT 11/14/2024 3:06 PM EDT Narrative [facility] - 11/15/2024 10:17 AM EDT This PCR assay was developed and its performance characteristics determined by [facility] as appropriate for clinical purposes. This assay has not been cleared or approved by the FDA, but is performed in a CLIA regulated laboratory that is qualified to perform high-complexity testing. us Provider Not In System MD LAB MICROBIOLOGY - GEN ERAL ORDERABLES Final Result [facility] [address] [place] [address] documented in this encounter Visit Diagnoses Diagnosis Encounter for general adult medical examination without abnormal findings documented in this encounter Care Teams Electric Motor Tester Relationship Specialty Start Date End Date Fernando Arias DO [address] [place] [address] PCP - General Security Associate 01/29/25 Ruth Ann Appiah LPN [facility] None TCM Nurse 05/20/25 06/19/25 documented as of this encounter
--- OUTSIDE RECORDS SUMMARY | 2025-06-26 09:49 | XMS_ITS | Encounter Summary ---
Author Organization Healthcare Address [address] [place] [address] Care Team Providers Care Nitro Man Name Role Phone Fernando Arias DO Primary Care Provider [phone] Ruth Ann Appiah LPN Unavailable Unavailabl e Encounter Details Date Type Department Care Team (Late st Contact Info) Description 11/24/2024 Orders Only External Location [address] [place] [address] Provider, External Social History Tobacco Use Types [...] [facility] Clinic [address] [facility], [address] [place] [address] Nikita Lai MD [address] [facility] [address] [place] [address] documented as of this encounter Procedures Procedure Name Priority Date/Time Associated Diagnosis Comments XR OUTSIDE IMAGES 11/24/2024 6:27 AM EDT documented in this encounter Results * XR OUTSIDE IMAGES (11/24/2024 6:27 AM EDT) Anatomical Region Laterality Modality Radiographic Khushi ging 11/24/2024 6:27 AM EDT us External Provider IMG XR PROCEDURES Final Result documented in this encounter Visit Diagnoses Not on filedocumented in this encounter Care Teams Nitro Man Relationship Specialty Start Date End Date Fernando Arias DO [address] [place] [address] PCP - General Marine Consultant 01/29/25 Ruth Ann Appiah LPN [facility] None TCM Nurse 05/20/25 06/19/25 documented as of this encounter
--- OUTSIDE RECORDS SUMMARY | 2025-06-26 09:49 | XMS_ITS | Clinical Summary ---
Author Organization [facility] Address [address] [place] [address] Care Team Providers Care Counter Dish Carrier Name Role Phone Unavailable Primary Care Provider Unavailabl e Social History Tobacco Use Types Packs/Day Years Used Date Smoking Tobacco: Never Assessed Comments Unknown Sex and Gender Information Value Date Recorded Sex Assigned at Not on file Legal Sex Female 9:38 AM EDT Gender Identity Not on file Sexual Orientation Not on file Plan of Treatment Health Maintenance Due Date Last Done Comments CT Colonography 1970 Colonoscopy 1970 Colorectal Cancer Screening 1970 FIT-DNA (Cologuard) 1970 FIT 1970 FOBT 1970 HPV/PAP 1970 Sigmoidoscopy 1970 Annual Visit Topic 10/15/1971 MMR Vaccines (1 of 1 - Stand vazquez series) 10/15/1971 Hepatitis C Screening 1988 DTaP/Tdap/Td Vaccines (1 - Tdap) 1989 Hepatitis B Vaccines (1 of 3 - 19+ 3-dose series) 1989 Pap Smear 10/15/1991 Cervical Cancer Screening 2000 HPV/Cotest 2000 HPV 2000 Mammogram 2010 HIB Vaccines Aged Out No longer eligi ble based on patient's age to complete this topic HPV Vaccines Aged Out No longer eligi ble based on patient's age to complete this topic Hepatitis A Vaccines Aged Out No long er eligible based on patient's age to complete this topic IPV Vaccines Aged Out No longer eligi ble based on patient's age to complete this topic Meningococcal Vaccine Aged Out No bharti marialuisa eligible based on patient's age to complete this topic Pneumococcal Vaccine: Pediat rics (0 to 5 years) and At-Risk Patients (6 to 64 Years) Aged Out No longer eligible b ased on patient's age to complete this topic
--- OUTSIDE RECORDS SUMMARY | 2025-06-26 09:49 | XMS_ITS | Encounter Summary ---
Author Organization Healthcare Address [address] [place] [address] Care Team Providers Care Image Archivist Name Role Phone Fernando Arias DO Primary Care Provider [phone] Ruth Ann Appiah LPN Unavailable Unavailabl e Encounter Details Date Type Department Care Team (Late st Contact Info) Description 11/15/2024 Orders Only External Location [address] [place] [address] Provider, External Social History Tobacco Use Types [...] [facility] [address], [address] [place] [address] Nikita Lai MD [address] [facility] [address] [place] [address] documented as of this encounter Procedures Procedure Name Priority Date/Time Associated Diagnosis Comments CT THORACIC OUTSIDE IMAGES 11/15/2024 3:27 PM EDT documented in this encounter Results * CT THORACIC OUTSIDE IMAGES (11/15/2024 3:27 PM EDT) Anatomical Region Laterality Modality Computed Tomogra phy 11/15/2024 3:27 PM EDT us External Provider IMG CT PROCEDURES Final Result documented in this encounter Visit Diagnoses Not on filedocumented in this encounter Care Teams Image Archivist Relationship Specialty Start Date End Date Fernando Arias DO [address] [place] [address] PCP - General Metalsmith 01/29/25 Ruth Ann Appiah, EDWAR [facility] None TCM Nurse 05/20/25 06/19/25 documented as of this encounter
--- OUTSIDE RECORDS SUMMARY | 2025-06-26 09:49 | XMS_ITS | Encounter Summary ---
Author Organization Healthcare Address [address] [place] [address] Care Team Providers Care Ibm Bpm Architect Name Role Phone Fernando Arias DO Primary Care Provider [phone] Ruth Ann Appiah LPN Unavailable Unavailabl e Encounter Details Date Type Department Care Team (Late st Contact Info) Description 11/14/2024 Orders Only External Location [address] [place] [address] Provider, External Social History Tobacco Use Types [...] [facility] [address] [facility], [address] [place] [address] Nikita Lai MD [address] [facility] [address] [place] [address] documented as of this encounter Procedures Procedure Name Priority Date/Time Associated Diagnosis Comments XR OUTSIDE IMAGES 11/14/2024 3:26 PM EDT documented in this encounter Results * XR OUTSIDE IMAGES (11/14/2024 3:26 PM EDT) Anatomical Region Laterality Modality Radiographic Khushi ging 11/14/2024 3:26 PM EDT us External Provider IMG XR PROCEDURES Final Result documented in this encounter Visit Diagnoses Not on filedocumented in this encounter Care Teams Ibm Bpm Architect Relationship Specialty Start Date End Date Fernando Arias DO [facility] [place] [address] PCP - General Importer Or Exporter 01/29/25 Ruth Ann Appiah, EDWAR [facility] None TCM Nurse 05/20/25 06/19/25 documented as of this encounter
--- OUTSIDE RECORDS SUMMARY | 2025-06-26 09:49 | XMS_ITS | Encounter Summary ---
Author Organization Healthcare Address [address] [place] [address] Care Team Providers Care Practice Architect Name Role Phone Fernando Arias DO Primary Care Provider Encounter Details Date Type Department Care Team (Latest Contact Info) Description 05/07/2025 Travel Social History Tobacco Use Types Packs/Day [...] [facility] [address] [facility] [address] [place] [address] Nikita Lai MD [address] [place] [address] documented as of this encounter Visit Diagnoses Not on filedocumented in this encounter Additional Health Concerns Assessment Noted Time A fall risk assessment has been complete d for the patient 05/07/2025 2:59 PM EDT A Body Mass Index follow-up plan has been documented for the patient 05/07/2025 4:34 PM EDT documented as of this encounter Care Teams Practice Architect Relationship Specialty Start Date End Date Fernando Arias DO [address] [place] [address] PCP - General Piercing Artist 01/29/25 documented as of this encounter
--- OUTSIDE RECORDS SUMMARY | 2025-06-26 09:49 | XMS_ITS | Encounter Summary ---
Author Organization Healthcare Address [address] [place] [address] Care Team Providers Care Reverse Engineer Name Role Phone Fernando Arias DO Primary Care Provider [phone] Ruth Ann Appiah LPN Unavailable Unavailabl e Encounter Details Date Type Department Care Team (Late st Contact Info) Description 01/17/2025 Orders Only External Location [address] [place] [address] Provider, External Social History Tobacco Use Types [...] [facility] [address] [facility], [address] [place] [address] Nikita Lai MD [address] [facility] [address] [place] [address] documented as of this encounter Procedures Procedure Name Priority Date/Time Associated Diagnosis Comments XR OUTSIDE IMAGES 01/17/2025 1:01 PM EDT documented in this encounter Results * XR OUTSIDE IMAGES (01/17/2025 1:01 PM EDT) Anatomical Region Laterality Modality Radiographic Khushi ging 01/17/2025 1:01 PM EDT us External Provider IMG XR PROCEDURES Final Result documented in this encounter Visit Diagnoses Not on filedocumented in this encounter Care Teams Reverse Engineer Relationship Specialty Start Date End Date Fernando Arias DO [facility] [place] [address] PCP - General Alpaca Farmer 01/29/25 Ruth Ann Appiah, EDWAR [facility] None TCM Nurse 05/20/25 06/19/25 documented as of this encounter
--- OUTSIDE RECORDS SUMMARY | 2025-06-26 09:49 | XMS_ITS | Encounter Summary ---
Author Organization Healthcare Address [address] [place] [address] Care Team Providers Care Voice Data Communications Engineer Name Role Phone Fernando Arias DO Primary Care Provider [phone] Ruth Ann Appiah LPN Unavailable Unavailabl e Encounter Details Date Type Department Care Team (Late st Contact Info) Description 03/21/2025 Orders Only External Location [address] [place] [address] Provider, External Social History Tobacco Use Types [...] [facility] [address] [facility], [address] [place] [address] Nikita Lai MD [address] [facility] [address] [place] [address] documented as of this encounter Procedures Procedure Name Priority Date/Time Associated Diagnosis Comments CT THORACIC OUTSIDE IMAGES 03/21/2025 12:44 PM EDT documented in this encounter Results * CT THORACIC OUTSIDE IMAGES (03/21/2025 12:44 PM EDT) Anatomical Region Laterality Modality Computed Tomogra phy 03/21/2025 12:4 4 PM EDT us External Provider IMG CT PROCEDURES Final Result documented in this encounter Visit Diagnoses Not on filedocumented in this encounter Care Teams Voice Data Communications Engineer Relationship Specialty Start Date End Date Fernando Arias DO [address] [place] [address] PCP - General Assistant Hall Director 01/29/25 Ruth Ann Appiah, EDWAR [facility] None TCM Nurse 05/20/25 06/19/25 documented as of this encounter
--- OUTSIDE RECORDS SUMMARY | 2025-06-26 09:49 | XMS_ITS | Encounter Summary ---
Author Organization Healthcare Address [address] [place] [address] Care Team Providers Care Sergeant At Arms Name Role Phone Fernando Arias DO Primary Care Provider [phone] Ruth Ann Appiah LPN Unavailable Unavailabl e Encounter Details Date Type Department Care Team (Late st Contact Info) Description 11/20/2024 Orders Only External Location [address] [place] [address] Provider, External Social History Tobacco Use Types [...] [facility] [address] [facility], [address] [place] [address] Nikita Lai MD [address] [facility] [address] [place] [address] documented as of this encounter Procedures Procedure Name Priority Date/Time Associated Diagnosis Comments XR OUTSIDE IMAGES 11/20/2024 8:45 AM EDT documented in this encounter Results * XR OUTSIDE IMAGES (11/20/2024 8:45 AM EDT) Anatomical Region Laterality Modality Radiographic Khushi ging 11/20/2024 8:45 AM EDT us External Provider IMG XR PROCEDURES Final Result documented in this encounter Visit Diagnoses Not on filedocumented in this encounter Care Teams Sergeant At Arms Relationship Specialty Start Date End Date Fernando Arias DO [address] [place] [address] PCP - General Almond Blancher Hand 01/29/25 Ruth Ann Appiah, EDWAR [facility] None TCM Nurse 05/20/25 06/19/25 documented as of this encounter
--- OUTSIDE RECORDS SUMMARY | 2025-06-26 09:49 | XMS_ITS | Encounter Summary ---
Author Organization Healthcare Address [address] [place] [address] Care Team Providers Care Etl Data Architect Name Role Phone Fernando Arias DO Primary Care Provider [phone] Ruth Ann Appiah LPN Unavailable Unavailabl e Encounter Details Date Type Department Care Team (Late st Contact Info) Description 11/26/2024 Orders Only External Location [address] [place] [address] Provider, External Social History Tobacco Use Types [...] [facility] [address] [facility], [address] [place] [address] Nikita Lai MD [address] [facility] [address] [place] [phone] documented as of this encounter Procedures Procedure Name Priority Date/Time Associated Diagnosis Comments XR OUTSIDE IMAGES 11/26/2024 7:19 AM EDT documented in this encounter Results * XR OUTSIDE IMAGES (11/26/2024 7:19 AM EDT) Anatomical Region Laterality Modality Radiographic Khushi ging 11/26/2024 7:19 AM EDT us External Provider IMG XR PROCEDURES Final Result documented in this encounter Visit Diagnoses Not on filedocumented in this encounter Care Teams Etl Data Architect Relationship Specialty Start Date End Date Fernando Arias DO [facility] [place] [address] PCP - General Toolroom Clerk 01/29/25 Ruth Ann Appiah, EDWAR [facility] None TCM Nurse 05/20/25 06/19/25 documented as of this encounter
--- OUTSIDE RECORDS SUMMARY | 2025-06-26 09:49 | XMS_ITS | Encounter Summary ---
Author Organization Healthcare Address [address] [place] [address] Care Team Providers Care Community Mental Health Social Worker Name Role Phone Fernando Arias Primary Care Provider [phone] Ruth Ann Appiah LPN Unavailable Unavailabl e Encounter Details Date Type Department Care Team (Late st Contact Info) Description 04/08/2025 Orders Only External Location [address] [place] [address] Lise Posadas MD [address] [place] [address] Social History Tobacco Use Types Packs/Day Years [...] [facility] [address] [facility], [address] [place] [address] Nikita Lai MD [address] [place] [address] documented as of this encounter Procedures Procedure Name Priority Date/Time Associated Diagnosis Comments US OUTSIDE IMAGES 04/08/2025 12:31 PM EDT documented in this encounter Results * US OUTSIDE IMAGES (04/08/2025 12:31 PM EDT) Anatomical Region Laterality Modality Ultrasound 04/08/2025 12:3 1 PM EDT us Lise Posadas MD IMG US PROCEDURES Edited Res ult - Final documented in this encounter Visit Diagnoses Not on filedocumented in this encounter Care Teams Community Mental Health Social Worker Relationship Specialty Start Date End Date Fernando Arias DO [address] [place] [address] PCP - General Oil Fire Specialist 01/29/25 Ruth Ann Appiah LPN [facility] None TCM Nurse 05/20/25 06/19/25 documented as of this encounter
--- OUTSIDE RECORDS SUMMARY | 2025-06-26 09:49 | XMS_ITS | Encounter Summary ---
Author Organization Healthcare Address [address] [place] [address] Care Team Providers Care Lead Advisor Name Role Phone Fernando Arias DO Primary Care Provider [phone] Ruth Ann Appiah LPN Unavailable Unavailabl e Encounter Details Date Type Department Care Team (Late st Contact Info) Description 12/12/2024 Orders Only External Location [address] [place] [address] Provider, External Social History Tobacco Use Types [...] [facility] [address] [facility], [address] [place] [address] Nikita Lai MD [address] [facility] [address] [place] [address] documented as of this encounter Procedures Procedure Name Priority Date/Time Associated Diagnosis Comments XR OUTSIDE IMAGES 12/12/2024 7:03 AM EDT documented in this encounter Results * XR OUTSIDE IMAGES (12/12/2024 7:03 AM EDT) Anatomical Region Laterality Modality Radiographic Khushi ging 12/12/2024 7:03 AM EDT us External Provider IMG XR PROCEDURES Final Result documented in this encounter Visit Diagnoses Not on filedocumented in this encounter Care Teams Lead Advisor Relationship Specialty Start Date End Date Fernando Arias DO [facility] [place] [address] PCP - General Pediatric Nurse 01/29/25 Ruth Ann Appiah LPN [facility] None TCM Nurse 05/20/25 06/19/25 documented as of this encounter
--- OUTSIDE RECORDS SUMMARY | 2025-06-26 09:49 | XMS_ITS ---
Author Organization Healthcare Address [address] [place] [address] Care Team Providers Care Bead Flipper Name Role Phone Fernando Arias DO Primary Care Provider Transitional Care Management Status:Closed (Closed) Start date:05/20/2025 Enrollment date:05/20/2025 Enrollment reason:Identified using hospital discharge data End date:06/19/2025 Close reason:Patient graduated Overview This episode type is for outpatient care managers enrolling patients in the [facility] Transitional Care Management program. Continued Care and Services Coordination
--- OUTSIDE RECORDS SUMMARY | 2025-06-26 09:49 | XMS_ITS | Encounter Summary ---
Author Organization Healthcare Address [address] [place] [address] Care Team Providers Care Ocean Transportation Intermediary Name Role Phone Fernando Arias DO Primary Care Provider [phone] Ruth Ann Appiah LPN Unavailable Unavailabl e Encounter Details Date Type Department Care Team (Late st Contact Info) Description 12/13/2024 Orders Only External Location [address] [place] [address] Provider, External Social History Tobacco Use Types [...] [facility] [address] [facility], [address] [place] [address] Nikita Lai MD [address] [facility] [address] [place] [address] documented as of this encounter Procedures Procedure Name Priority Date/Time Associated Diagnosis Comments XR OUTSIDE IMAGES 12/13/2024 6:52 AM EDT documented in this encounter Results * XR OUTSIDE IMAGES (12/13/2024 6:52 AM EDT) Anatomical Region Laterality Modality Radiographic Khushi ging 12/13/2024 6:52 AM EDT us External Provider IMG XR PROCEDURES Final Result documented in this encounter Visit Diagnoses Not on filedocumented in this encounter Care Teams Ocean Transportation Intermediary Relationship Specialty Start Date End Date Fernando Arias DO [facility] [place] [address] PCP - General Custom Leather Products Maker 01/29/25 Ruth Ann Appiah LPN [facility] None TCM Nurse 05/20/25 06/19/25 documented as of this encounter
--- OUTSIDE RECORDS SUMMARY | 2025-06-26 09:49 | XMS_ITS | Encounter Summary ---
Author Organization Healthcare Address [address] [place] [address] Care Team Providers Care Professor Sculpture Name Role Phone Fernando Arias DO Primary Care Provider Ruth Ann Appiah LPN Unavailable Unavailabl e Encounter Details Date Type Department Care Team (Late st Contact Info) Description 12/21/2024 Orders Only External Location [address] [place] [address] Provider, External Social History Tobacco Use Types [...] [facility] [address] [facility], [address] [place] [address] Nikita Lai MD [address] [facility] [address] [place] [address] documented as of this encounter Procedures Procedure Name Priority Date/Time Associated Diagnosis Comments XR OUTSIDE IMAGES 12/21/2024 6:55 AM EDT documented in this encounter Results * XR OUTSIDE IMAGES (12/21/2024 6:55 AM EDT) Anatomical Region Laterality Modality Radiographic Khushi ging 12/21/2024 6:55 AM EDT us External Provider IMG XR PROCEDURES Final Result documented in this encounter Visit Diagnoses Not on filedocumented in this encounter Care Teams Professor Sculpture Relationship Specialty Start Date End Date Fernando Arias DO [address] [place] [address] PCP - General Pecan Gatherer 01/29/25 Ruth Ann Appiah, EDWAR [facility] None TCM Nurse 05/20/25 06/19/25 documented as of this encounter
--- OUTSIDE RECORDS SUMMARY | 2025-06-26 09:49 | XMS_ITS | Encounter Summary ---
Author Organization Healthcare Address [address] [place] [address] Care Team Providers Care Escalation Engineer Name Role Phone Fernando Arias DO Primary Care Provider [phone] Ruth Ann Appiah LPN Unavailable Unavailabl e Encounter Details Date Type Department Care Team (Late st Contact Info) Description 11/19/2024 Orders Only External Location [address] [place] [address] Provider, External Social History Tobacco Use Types [...] [facility] [address] [facility], [address] [place] [address] Nikita Lai MD [address] [facility] [address] [place] [address] documented as of this encounter Procedures Procedure Name Priority Date/Time Associated Diagnosis Comments XR OUTSIDE IMAGES 11/19/2024 1:11 PM EDT documented in this encounter Results * XR OUTSIDE IMAGES (11/19/2024 1:11 PM EDT) Anatomical Region Laterality Modality Radiographic Khushi ging 11/19/2024 1:11 PM EDT us External Provider IMG XR PROCEDURES Final Result documented in this encounter Visit Diagnoses Not on filedocumented in this encounter Care Teams Escalation Engineer Relationship Specialty Start Date End Date Fernando Arias DO [facility] [place] [address] PCP - General Steam Train Driver 01/29/25 Ruth Ann Appiah, EDWAR [facility] None TCM Nurse 05/20/25 06/19/25 documented as of this encounter
--- OUTSIDE RECORDS SUMMARY | 2025-06-26 09:49 | XMS_ITS | Encounter Summary ---
Author Organization Healthcare Address [address] [place] [address] Care Team Providers Care Business Intelligence Architect Name Role Phone Fernando Arias DO Primary Care Provider [phone] Ruth Ann Appiah LPN Unavailable Unavailabl e Encounter Details Date Type Department Care Team (Late st Contact Info) Description 12/18/2024 Orders Only External Location [address] [place] [address] Provider, External Social History Tobacco Use Types [...] [facility], [address] [place] [address] Nikita Lai MD [address] [facility] [address] [place] [address] documented as of this encounter Procedures Procedure Name Priority Date/Time Associated Diagnosis Comments XR OUTSIDE IMAGES 12/18/2024 7:24 AM EDT documented in this encounter Results * XR OUTSIDE IMAGES (12/18/2024 7:24 AM EDT) Anatomical Region Laterality Modality Radiographic Khushi ging 12/18/2024 7:24 AM EDT us External Provider IMG XR PROCEDURES Final Result documented in this encounter Visit Diagnoses Not on filedocumented in this encounter Care Teams Business Intelligence Architect Relationship Specialty Start Date End Date Fernando Arias DO [facility] [place] [address] PCP - General Home Performance Consultant 01/29/25 Ruth Ann Appiah, EDWAR [facility] None TCM Nurse 05/20/25 06/19/25 documented as of this encounter
--- OUTSIDE RECORDS SUMMARY | 2025-06-26 09:49 | XMS_ITS | Encounter Summary ---
Author Organization Healthcare Address [address] [place] [address] Care Team Providers Care Brick Machine Operator Name Role Phone Fernando Arias DO Primary Care Provider [phone] Ruth Ann Appiah LPN Unavailable Unavailabl e Encounter Details Date Type Department Care Team (Late st Contact Info) Description 11/23/2024 Orders Only External Location [address] [place] [address] Provider, External Social History Tobacco Use Types [...] [address] [facility], [address] [place] [address] Nikita Lai MD [address] [place] [address] documented as of this encounter Procedures Procedure Name Priority Date/Time Associated Diagnosis Comments XR OUTSIDE IMAGES 11/23/2024 5:48 AM EDT documented in this encounter Results * XR OUTSIDE IMAGES (11/23/2024 5:48 AM EDT) Anatomical Region Laterality Modality Radiographic Khushi ging 11/23/2024 5:48 AM EDT us External Provider IMG XR PROCEDURES Final Result documented in this encounter Visit Diagnoses Not on filedocumented in this encounter Care Teams Brick Machine Operator Relationship Specialty Start Date End Date Fernando Arias DO [facility] [place] [address] PCP - General Loom Doffer 01/29/25 uRth Ann Appiah LPN [facility] None TCM Nurse 05/20/25 06/19/25 documented as of this encounter
--- OUTSIDE RECORDS SUMMARY | 2025-06-26 09:49 | XMS_ITS | Encounter Summary ---
Author Organization Healthcare Address [address] [place] [address] Care Team Providers Care Tube Blower Name Role Phone Fernando Arias DO Primary Care Provider [phone] Ruth Ann Appiah LPN Unavailable Unavailabl e Encounter Details Date Type Department Care Team (Late st Contact Info) Description 12/21/2024 Orders Only External Location [address] [place] [address] Provider, External Social History Tobacco Use Types [...] [facility] [address], [address] [place] [address] Nikita Lai MD [address] [facility] [address] [place] [id number] documented as of this encounter Procedures Procedure Name Priority Date/Time Associated Diagnosis Comments XR OUTSIDE IMAGES 12/21/2024 9:33 AM EDT documented in this encounter Results * XR OUTSIDE IMAGES (12/21/2024 9:33 AM EDT) Anatomical Region Laterality Modality Radiographic Khushi ging 12/21/2024 9:33 AM EDT us External Provider IMG XR PROCEDURES Final Result documented in this encounter Visit Diagnoses Not on filedocumented in this encounter Care Teams Tube Blower Relationship Specialty Start Date End Date Fernando Arias DO [address] [place] [address] PCP - General Prison Guard 01/29/25 Ruth Ann Appiah, [facility]WAR [facility] None TCM Nurse 05/20/25 06/19/25 documented as of this encounter
--- OUTSIDE RECORDS SUMMARY | 2025-06-26 09:49 | XMS_ITS | Encounter Summary ---
Author Organization Healthcare Address [address] [place] [address] Care Team Providers Care Bond Manager Name Role Phone Fernando Arias DO Primary Care Provider [phone] Ruth Ann Appiah LPN Unavailable Unavailabl e Encounter Details Date Type Department Care Team (Late st Contact Info) Description 11/25/2024 Orders Only External Location [address] [place] [address] Provider, External Social History Tobacco Use Types [...] [facility], [address] [place] [address] Nikita Lai MD [address] [facility] [address] [place] [id number] documented as of this encounter Procedures Procedure Name Priority Date/Time Associated Diagnosis Comments XR OUTSIDE IMAGES 11/25/2024 6:33 AM EDT documented in this encounter Results * XR OUTSIDE IMAGES (11/25/2024 6:33 AM EDT) Anatomical Region Laterality Modality Radiographic Khushi ging 11/25/2024 6:33 AM EDT us External Provider IMG XR PROCEDURES Final Result documented in this encounter Visit Diagnoses Not on filedocumented in this encounter Care Teams Bond Manager Relationship Specialty Start Date End Date Fernando Arias DO [address] [place] [address] PCP - General Storage Battery Charger 01/29/25 Ruth Ann Appiah, [facility] None TCM Nurse 05/20/25 06/19/25 documented as of this encounter
--- OUTSIDE RECORDS SUMMARY | 2025-06-26 09:49 | XMS_ITS | Encounter Summary ---
Author Organization Healthcare Address [address] [place] [address] Care Team Providers Care Fresh Foods Technician Name Role Phone Fernando Arias DO Primary Care Provider [phone] Ruth Ann Appiah LPN Unavailable Unavailabl e Reason for Referral * Consultation (Routine) - Closed Specialty Diagnoses / Procedures Referred By Carol t Referred To Contact Pulmonary Disease / Pulmonology Diagnoses Chronic obstructive pulmonary disease, unspecified COPD type (CMS/HCC) Tracheostomy status (CMS/HCC) Fernando Arias DO [address] [address] Phone: tel: fax: Referral ID Status Reason Start Date Expiration Date V isits Requested Visits Authorized [id number] Closed Specialty Services Required 01/24/2025 07/26/2026 1 1 Encounter Details Date Type Department Care Team (Late st Contact Info) Description 01/24/2025 Community [facility] [address] [place] [address] [place] [address] [place] [address] Chronic obstructive pulmonary disease, unspecified COPD type (CMS/HCC) (Primary Dx); Tracheostomy status (CMS/HCC) Social History Tobacco Use Types Packs/Day Years Used Date Smoking Tobacco: Never Assessed Comments Unknown Sex and Gender Information Value Date Recorded Sex Assigned at Not on file Legal Sex Female 9:11 AM EST Gender Identity Not on file Sexual Orientation Not on file documented as of this encounter Plan of Treatment Upcoming Encounters Date Type Department Care Team ([facility] st Contact Info) Description 08/20/2025 11:40 AM EST Office Visit [facility] [address], [address] [place] [address] Nikita Lai MD [address] [place] [address] Scheduled Referrals Name Type Priority Associated Diagnoses Order Schedule Ambulatory referral to Pulmonology Outpatient Referral Routine Chronic obstructive pulmonary disease, unspecified COPD type (CMS/HCC) Tracheostomy status (CMS/HCC) 1 Occurrences starting 01/24/2025 until 07/28/2026 documented as of this encounter Visit Diagnoses Diagnosis Chronic obstructive pulmonary disease, unspecified COPD type (CMS/HCC)- Primary Tracheostomy status (CMS/HCC) Tracheostomy status documented in this encounter Care Teams Fresh Foods Technician Relationship Specialty Start Date End Date Fernando Arias DO [address] [place] [address] PCP - General Product Safety Tester 01/29/25 Ruth Ann Appiah LPN [facility] None TCM Nurse 05/20/25 06/19/25 documented as of this encounter
[2025-06-27 08:16] LABS: Hepatitis B Surface Antigen Negative (Negative)
== END 2025-06-25 23:59 | disposition home or self-care (01) ==
LOC: LAB.DROPOF 06-26 09:45
PROVIDERS: PCP Family Medicine; Visit Provider Family Medicine
DX: D64.9 Anemia, unspecified (principal); J44.1 Chronic obstructive pulmonary disease with (acute) exacerbation; R53.81 Other malaise; Z11.59 Encounter for screening for other viral diseases
CPT/HCPCS: 80053; 84443; 85025; 86803; 87340; 87389